=== PATIENT | male | born 1960 | race Caucasian/White ===

== ENCOUNTER 2018-10-29 18:43 | Inpatient (IN) ==
--- NOTE | 2018-10-29 18:57 | Emergency Department Note ---
ED Disposition Clinical Impression: ST elevation myocardial infarction (STEMI) of inferior wall Hypotension Qualifiers: Hypotension type: unspecified hypotension type Qualified Code(s): I95.9 - Hypotension, unspecified Atrial fibrillation Qualifiers: Atrial fibrillation type: unspecified Qualified Code(s): I48.91 - Unspecified atrial fibrillation Disposition: Admitted As Inpatient Condition on Discharge: Serious - Critical Care Critical Care Time: Yes Attestation: On , the high probability of a clinically significant, sudden or life threatening deterioration of the following system(s) required my full and direct attention, intervention and personal management. The time I documented below is in addition to time spent performing reported procedures but includes the f ollowing listed in this critical care notation. Total Critical Care Time: 20 Vital system(s) involved:: Circulatory Failure My critical care processes included: Assessment & monitoring of V/S, Initial and Re-exams, Data Review/Interpretation, Coordinating Care, Medication Orders and management, Documentation Medical Decision Making - Jose Martin Inquiry Pt receiving controlled substance: No Vital Signs: 10/29/18 18:43 10/29/18 19:06 10/29/18 19:17 Temperature 98.0 F 98.1 F Temperature Source Oral Oral Pulse Rate 100 H Pulse Rate [Right Brachial] 60 55 L Respiratory Rate 24 26 H Blood Pressure 84/46 L Blood Pressure [Right Arm] 86/56 L 85/55 L Blood Pressure Mean [Right Arm] 66 65 Blood Pressure Source Automatic Cuff Blood Pressure Source [Right Arm] Automatic Cuff Automatic Cuff Blood Pressure Position Sitting Blood Pressure Position [Right Arm] Sitting Sitting 02 Sat by Pulse Oximetry 100 99 Oxygen Delivery Method Room Air Room Air - Lab Data Lab Results 10/29/18 18:45: WBC 15.8 H, RBC 5.64, Hgb 18.3 H*, Hct 51.5, MCV 91.3, MCH 32.5 H, MCHC 35.6 H, RDW 13.6, Plt Count 484 H, MPV 7.6, Neut % (Auto) 67.7, Lymph % (Auto) 24.9, [place] % (Auto) 4.7, Eos % (Auto) 2.2, Baso % (Auto) 0.5, Neut # (Auto) 10.7 H, Lymph # (Auto) 4.0, [place] # (Auto) 0.7, Eos # (Auto) 0.4, Baso # (Auto) 0.1, Total Counted 100, Neutrophils % (Manual) 79 H, Band Neutrophils % 6.0, Lymphocytes % (Manual) 14, Monocytes % (Manual) 1 L, Platelet Estimate Normal, RBC Morphology Normal 10/29/18 18:45: Sodium 140, Potassium 4.0, Chloride 105, Carbon Dioxide 21, Anion Gap 18.0 H, BUN 23 H, Creatinine 1.50 H, Estimated Creat Clear 69, Estimated GFR 48 L, Est GFR ( Amer) 58 L, Glucose 135 H, Calcium 9.8, Troponin I < 0.02 Result diagrams: 10/29/18 18:45 10/29/18 18:45 Orders (Tests/Meds): ED MEDICATIONS Generic Name Dose Route Start Last Admin Trade Name Freq PRN Reason Stop Dose Admin Diphenhydramine HCl 50 mg 10/29/18 19:22 Benadryl 50mg/1ml Vial IV 10/29/18 19:23 ONCE ONE Fentanyl Citrate 50 mcg 10/29/18 19:22 10/29/18 19:54 Fentanyl 100mcg/2ml Vial IV 10/30/18 19:23 25 mcg Q3MINP PRN Administration Moderate to Severe Pain Fentanyl Citrate 25 mcg 10/29/18 19:22 Fentanyl 250mcg/5ml Vial IV 10/30/18 19:23 Q3MINP PRN Moderate to Severe Pain Fentanyl Citrate 50 mcg 10/29/18 19:22 Fentanyl 250mcg/5ml Vial IV 10/30/18 19:23 Q3MINP PRN Moderate to Severe Pain Fentanyl Citrate 25 mcg 10/29/18 19:22 Fentanyl 100mcg/2ml Vial IV 10/30/18 19:23 Q3MINP PRN Moderate to Severe Pain Flumazenil 0.2 mg 10/29/18 19:22 Romazicon 0.1mg/Ml 5ml Vial IV 10/29/18 23:00 NEEDED PRN Sedation Heparin Sodium (Porcine) 10,000 unit 10/29/18 19:22 10/29/18 19:37 Heparin 1,000 Units/Ml 10ml Vial (Dog Boarder) IV 10/29/18 23:23 3,000 unit NEEDED PRN Administration 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 Heparin Sodium/Sodium Chloride 3,000 unit 10/29/18 19:22 10/29/18 19:27 Heparin 1000 Units/500ml Ns (Dog Boarder) IV 10/29/18 19:23 3,000 unit ONCE ONE Administration Sodium Chloride 1,000 mls @ 25 mls/hr 10/29/18 19:30 10/29/18 19:27 Sod Chlor 0.9% 1000ml Bag IV 10/30/18 19:23 25 mls/hr .Q25H FRANSISCA Administration Lidocaine HCl 20 ml 10/29/18 19:22 10/29/18 19:24 Lidocaine 1% 20ml Mdv IJ 10/29/18 19:23 10 ml ONCE ONE Administration Midazolam HCl 1 mg 10/29/18 19:22 10/29/18 19:54 Midazolam 1mg/Ml 5ml Vial IV 10/30/18 19:23 1 mg Q3MINP PRN Administration Sedation Midazolam HCl 1 mg 10/29/18 19:22 Midazolam 2mg/2ml Vial IV 10/30/18 19:23 Q3MINP PRN Sedation Naloxone HCl 0.4 mg 10/29/18 19:22 Narcan 0.4mg/Ml Vial IV 10/30/18 19:23 Q5MINP PRN Decreased respirations Nitroglycerin 800 mcg 10/29/18 19:22 10/29/18 19:28 Nitroglycerin 800mcg/8ml Syr (Dog Boarder) IV 10/30/18 19:23 800 mcg NEEDED PRN Administration 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 Sodium Chloride 10 ml 10/29/18 19:22 Saline Flush 10ml Syringe IV 11/28/18 19:21 NEEDED PRN Maintain IV Site Verapamil HCl 2.5 mg 10/29/18 19:22 10/29/18 19:27 Verapamil 2.5mg/Ml 2ml Vial IV 10/29/18 19:23 5 mg ONCE ONE Administration Discontinued Medications Generic Name Dose Route Start Last Admin Trade Name Freq PRN Reason Stop Dose Admin Heparin Sodium (Porcine) 9,000 unit 10/29/18 19:06 10/29/18 19:09 Heparin Sodium 5,000 Units/Ml Vial IV 10/29/18 19:07 9,000 unit ONCE ONE Administration ORDERS Category Date Time Status Chest XR -- portable [XR chest portable] Stat Exams 10/29/18 18:50 Taken - ECG Data Tracing #1 EKG interpreted by Romaine Wilkins MD: Rhythm: Atrial fibrillation Rate: 62 [place]: normal Ectopy: none Conduction: normal ST Segment Changes: Inferior ST elevation consistent with acute myocardial infarction T Wave Changes: Anterior and lateral inversion, reciprocal change Q Waves: none No evidence of acute ischemia or injury - Physician Consults Physician Consulted: Roma Time: 18:45 Reason -: Cardiology Eval/Care Comment/Response: Heparin 100 units/kg, call cardiac cath team, he is on his way in - KANDY Score for Stemi Age of Patient: 50-59 years old Heart Rate: 50-69 bpm Systolic Blood Pressure: 80-99 mmHg Serum Creatinine: 1.20-1.59 mg/dl CHF [place] Class: IV-Cardiogenic Shock Other Risk Factors: ST Segment Deviation Stemi Risk Score: 194 General Adult HPI - General Chief complaint: Chest Pain Stated complaint: chest pain Time Seen by Provider: 10/29/18 18:43 Mode of Arrival: Family Vehicle Limitations: No Limitations Description of Symptoms (Recalled from ER Triage Doc. 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 Has a history of CHF and for cardiac stents. Cardiac stents 2013 in 2017 at [facility] in [place]. No prior history of GA. Took 2 nitroglycerin prior to arrival. Has not taken any aspirin today. Has atrial fibrillation, but is on no blood thinners except aspirin. - Related Data Allergies Allergy/AdvReac Type Severity Reaction Status Date / Time NO KNOWN ALLERGIES Allergy Uncoded 06/14/17 14:22 [facility] History - Hepatitis A Screen Drug use history?: No High risk sexual behaviors?: No History of sexually transmitted infection?: No Currently employed?: No Childcare worker?: No Do you have indoor plumbing?: Yes Do you have electricity?: Yes Attestation statement:: This patient has been screened for Hepatitis A risk factors. I have reviewed the patient's past medical history: Yes ROS Obtained: Yes All systems reviewed & no additional complaints - Cardiovascular Cardiovascular: Reports chest pain, Reports diaphoresis, Reports radiating jaw, neck or arm pain - Respiratory Respiratory: Yes dyspnea - Gastrointestinal Gastrointestingal: Reports: nausea. Denies: vomiting Physical Exam - General General appearance: alert, in distress Comment: Diaphoretic and pale - Head Head exam: atraumatic, normocephalic - Eye Eye exam: Present: normal appearance, EOMI - ENT ENT exam: Present: mucous membranes moist - Neck Neck exam: Present: normal inspection, trachea midline - Chest Chest inspection: Present: normal inspection, symmetric chest wall rise - Respiratory Respiratory exam: Present: normal lung sounds bilaterally. Absent: respiratory distress - Cardiovascular Cardiovascular exam: Present: regular rate, normal rhythm, normal heart sounds - Abdominal Exam Abdominal exam: Present: soft. Absent: distention, tenderness - Extremities Exam Extremities exam: Present: normal inspection - Neurological Exam Neurological exam: Present: alert, oriented X3 - Psychiatric Psychiatric exam: Present: normal affect, normal mood - Skin Skin exam: Present: pallor
[2018-10-29 19:00] LABS: Basophils # 0.1 K/mm3 (0-0.2); Basophils % 0.5 % (0.1-2.0); Eosinophils # 0.4 K/mm3 (0.0-0.4); Eosinophils % 2.2 % (0.1-12.0); Hematocrit 51.5 % (42.0-52.0); Lymphocytes % 24.9 % (10-50); Mean Corpuscular HGB Conc 35.6 g/dL (31.8-35.4); Mean Corpuscular Hemoglobin 32.5 pg (27.0-31.2); Mean Corpuscular Volume 91.3 fl (80-94); Mean Platelet Volume 7.6 fl (7.4-10.4); Monocytes # 0.7 K/mm3 (0.1-1.0); Monocytes % 4.7 % (1.7-9.3); Neutrophils # 10.7 K/mm3 (1.8-7.8); Neutrophils % 67.7 % (37.0-80.0); Platelet Count 484 K/mm3 (142-424); Red Blood Count 5.64 M/mm3 (4.60-6.20); Red Cell Distribution Width 13.6 % (11.5-17.5); White Blood Count 15.8 K/mm3 (4.8-10.8)
[2018-10-29 19:02] LABS: Hemoglobin 18.3 g/dL (14.1-18.0)
[2018-10-29 19:07] LABS: Lymphocytes % 14 % (10-50); Monocytes % 1 % (2-9); Neutrophils % 79 % (42-76); RBC Morphology Normal; Total Cells Counted 100
[2018-10-29 19:19] LABS: Blood Urea Nitrogen 23 mg/dL (7-18); Calcium 9.8 mg/dL (8.5-10.1); Carbon Dioxide 21 mmol/L (21.0-32.0); Chloride 105 mmol/L (98-107); Glucose 135 mg/dL (74-106); Sodium 140 mmol/L (136-145)
[2018-10-30 06:17] LABS: Chol/HDL Ratio 3.7 (1-3.5)
--- NOTE | 2018-10-30 07:45 | Pharmacy Consult Notes ---
[facility] Pharmacy VTE Monitoring - Patient Demographics Admission date: 10/29/18 Report Date: 10/30/18 Time: 07:45 Allergies/Adverse Reactions: Patient Allergies No Known Drug Intolerances Allergy (Unknown, Verified 10/29/18 23:49) Unknown allergy reaction Height: 1.68 m Weight: 87.952 kg Patient Problems: Current Active Problems (Updated 10/29/18 @ 19:03 by Romaine Wilkins MD) ST elevation myocardial infarction (STEMI) of inferior wall (Acute) Hypotension (Acute) Atrial fibrillation (Acute) - VTE Risk Labs: VTE Related Lab Results Hgb 18.3 g/dL (14.1-18.0) H* 10/29/18 18:45 Hct 51.5 % (42.0-52.0) 10/29/18 18:45 Plt Count 484 K/mm3 (142-424) H 10/29/18 18:45 BUN 23 mg/dL (7-18) H 10/29/18 18:45 Creatinine 1.50 mg/dL (0.70-1.30) H 10/29/18 18:45 Estimated Creat Clear 69 mL/min (50-200) 10/29/18 18:45 VTE Score: 5 VTE Risk Level: Low Risk Clinical Trial Participant: No - Prophylaxis VTE Prophylaxis Ordered?: Yes Types of VTE Prophylaxis: TEDS Knee High, Pharmacological Location of Applied Device: Not Applicable Pharmacologic Type: Other (xarelto)
--- NOTE | 2018-10-30 08:19 | History & Physical Report ---
*Admission Date: 10/29/18 *Chief complaint: STEMI *History of present illness: 58-year-old white male, patient of Dr. Taran benedict, who presented to the emergency department late yesterday evening with chest pain, shortness of air and nausea. Work-up in the ER revealed that he was in atrial fibrillation which is apparently chronic, but he was also found to have STEMI. Taken urgently to the [facility] and catheterization was performed which revealed significant abnormalities and 4 stents were placed. Please see cardiology report for details below: ANGIOGRAPHIC RESULTS: 1. The left main artery normal 2. The left anterior descending artery is an unusual vessel and has basically a dual system with both arteries being relatively small. Very proximally it branches into the LAD proper and a first diagonal artery which is equal in size to the LAD proper. There appears to be a stent in the diagonal vessel which is patent however has a 60% stenosis immediately proximal to the stent. 3. A moderate sized ramus intermedius is present and has 30% stenoses 4. The circumflex artery is nondominant yet still very large vessel and has proximal 20-30% stenoses mid vessel 20-30% stenosis. The second obtuse marginal artery is a medium sized 2.25 mm vessel and has a long proximal 90% stenosis. The terminal large third obtuse marginal artery has a stent in its mid segment which is widely patent free of in-stent restenosis with excellent distal and proximal transitioning 5. The right coronary artery is a large dominant vessel and initially occluded in its mid segment. Following revascularization the entire ostial proximal mid and distal segment was widely patent. Distal vessel trifurcates into a large posterior descending artery which has a stent in its proximal segment which reduced the 99% stenosis. There is a moderate sized branch which has an inferior takeoff to the ostium of this PDA. This moderate size inferior branch is widely patent with mild stenosis. There is a superior branch moderate in size and then subtotally occluded in its mid segment. 6. The VINCENT ventriculogram reveals preserved at 60% 7. The left ventricular end-diastolic pressure 20 mmHg IMPRESSION: 1. Acute myocardial infarction as described above 2. Successful reconstruction of the proximal mid distal dominant right coronary artery severe disease reduced to 10% with 3 drug-eluting stents in a contiguous manner 3. Successful stenting of a large posterior descending artery with a critical 99% stenosis reduced to 0% with 1 drug-eluting stent 4. Subtotally occluded small to moderate superior branch of the distal trifurcating right coronary artery 5. Unusual small bifurcating left anterior descending artery with the stent and a first diagonal artery which has a proximal 50-60% stenosis which requires evaluation at another setting 6. Widely patent stent in the large third obtuse marginal artery 7. Normal ejection fraction 8. Mildly elevated LVEDP PLAN: 1. Brilinta and aspirin for one year 2. Avoidance of tobacco products 3. LDL less than 55 4. Cardiac rehabilitation 5. Aggressive risk factor modification 6. Carvedilol and carson inhibitors should be started and titrated as tolerated Patient requires anticoagulation because of his chronic atrial fibrillation. Triple anticoagulation therapy including Brilinta and aspirin and Xarelto 15 mg daily. At the end of one month aspirin should be discontinued 7. In 6 weeks a Lexiscan Myoview should be order to determine if the moderately sized bifurcating LAD which technically is the first diagonal artery is producing ischemia because of the 50-60% proximal stenosis 8. Patient presented with out anticoagulation for chronic atrial fibrillation. There is no record of a watchman device or left atrial clip. I see no reason why patient should not be on anticoagulation in order to reduce the risk of stroke [facility] History Medical History: Reports:: Cardiomyopathy, Hyperlipidemia, Hypertension Denies:: Cancer, Diabetes Mellitus Type 1, Diabetes Mellitus Type 2, MRSA *Have you ever received a pneumonia vaccine?: No *Have you received a flu vaccine this season?: No Laterality Cases: Left: Other, Bilateral: Tonsillectomy Other Surgeries: Yes: Cardiac Catheterization, Coronary Stent Amputation: No Fractures: No - *Social History Educational Level: Attended High School Smoking Status: Current every day smoker # Packs/Day (cigarettes): 1 Alcohol Intake: former *Occupational Status:: employed Household Members: spouse, children *Travel in the last 8 weeks: None - Psychiatric History Expresses thoughts of harming self/others: None Suicide Plan Description: No Plan Family Hx:: Cancer, Diabetes, Hypertension, Stroke, Tuberculosis Review of Systems - Review of Systems Review of systems:: pertinent systems reviewed and negative unless documented below This morning patient is without complaints of chest pain or shortness of air. Denies GI complaints, denies musculoskeletal complaints, denies neurologic complaints. Meds Home Medications Medication Instructions Recorded Confirmed Type Aspirin [Aspirin 81mg EC Tab] 81 mg PO DAILY 10/29/18 10/29/18 History Bisoprolol Fumarate [Bisoprolol 10 mg PO DAILY 10/29/18 10/29/18 History 10mg Tablet] Furosemide [Furosemide 80mg Tab] 40 mg PO DAILY 10/29/18 10/29/18 History Ibuprofen [Ibuprofen 200MG Capsule] 200 mg PO DAILY PRN 10/29/18 10/29/18 History Lisinopril [Lisinopril 40mg Tablet] 80 mg PO DAILY 10/29/18 10/29/18 History Multivit-Minerals/Herbal 121 1 each PO NEEDED PRN 10/29/18 10/29/18 History [Urinozinc Prostate Formula Cap] Naproxen Sodium [Aleve 220mg Cap] 220 mg PO BID 10/29/18 10/29/18 History Nitroglycerin 0.4 mg SL TID PRN 10/29/18 10/29/18 History Potassium Chloride [Klor-con 20 20 meq PO DAILY 10/29/18 10/29/18 History mEq tablet] Pravastatin Sodium [Pravachol 40mg 40 mg PO HS 10/29/18 10/29/18 History Tablet] Tizanidine HCl [Zanaflex 4mg 4 mg PO TID PRN 10/29/18 10/29/18 History tablet] buPROPion HCl [Bupropion HCl ER] 150 mg PO BID 10/29/18 10/29/18 History Allergies Allergy/AdvReac Type Severity Reaction Status Date / Time No Known Drug Intolerances Allergy Unknown Unknown Verified 10/29/18 23:49 allergy reaction Exam Vital signs and Labs for Last 24 Hours: Temp Pulse Resp BP Pulse Ox 98.2 F 82 17 125/77 98 10/29/18 21:10 10/30/18 06:00 10/30/18 06:00 10/30/18 06:00 10/30/18 06:00 Laboratory Results - last 24 hr 10/29/18 18:45: WBC 15.8 H, RBC 5.64, Hgb 18.3 H*, Hct 51.5, MCV 91.3, MCH 32.5 H, MCHC 35.6 H, RDW 13.6, Plt Count 484 H, MPV 7.6, Neut % (Auto) 67.7, Lymph % (Auto) 24.9, [place] % (Auto) 4.7, Eos % (Auto) 2.2, Baso % (Auto) 0.5, Neut # (Auto) 10.7 H, Lymph # (Auto) 4.0, [place] # (Auto) 0.7, Eos # (Auto) 0.4, Baso # (Auto) 0.1, Total Counted 100, Neutrophils % (Manual) 79 H, Band Neutrophils % 6.0, Lymphocytes % (Manual) 14, Monocytes % (Manual) 1 L, Platelet Estimate Normal, RBC Morphology Normal 10/29/18 18:45: Sodium 140, Potassium 4.0, Chloride 105, Carbon Dioxide 21, Anion Gap 18.0 H, BUN 23 H, Creatinine 1.50 H, Estimated Creat Clear 69, Estimated GFR 48 L, Est GFR ( Amer) 58 L, Glucose 135 H, Calcium 9.8, Troponin I < 0.02 10/29/18 19:30: Activated Clotting Time 252 H* 10/29/18 20:29: Activated Clotting Time 312 H* D 10/30/18 05:58: Triglycerides 83, Cholesterol 142, LDL Cholesterol 87, VLDL Cholesterol 17, HDL Cholesterol 38, Cholesterol/HDL Ratio 3.7 H I & O for Last 24 hours: Intake & Output 10/27/18 10/28/18 10/29/18 10/30/18 11:59 11:59 11:59 11:59 Intake Total 1407 / 1407 Output Total 1390 / 1390 Balance Weight 193 lb 14.4 oz Narrative: Patient is awake, alert. Pleasant. Oropharynx shows nicotine damage to dental structures but otherwise clear. No JVD. Smoker's rhonchi in both lungs but good air movement. Heart rate regular without murmurs. Abdomen soft and nontender. No edema or clubbing or cyanosis. No skin rash. Assessment and Plan (1) Atrial fibrillation Current visit: Yes Status: Acute Qualifiers: Atrial fibrillation type: unspecified Qualified Code(s): I48.91 - Unspecified atrial fibrillation Category: Medical Code(s): I48.91 - Unspecified atrial fibrillation Agree with cardiology recommendations for ongoing anticoagulation post discharge. Observed today, probable discharge tomorrow. (2) ST elevation myocardial infarction (STEMI) of inferior wall Current visit: Yes Status: Acute Category: Medical Code(s): I21.19 - ST elevation (STEMI) myocardial infarction involving other coronary artery of inferior wall Status post stenting, patient doing well. Discussed smoking cessation with patient. (3) Body mass index (BMI) greater than 30 Current visit: Yes Status: Acute Category: Medical Complicates all aspects of his care (4) Hyperlipemia, idiopathic familial Current visit: Yes Status: Acute Category: Medical Code(s): E78.5 - Hyperlipidemia, unspecified (5) Personal history of nicotine dependence Current visit: Yes Status: Acute Category: Medical Code(s): Z87.891 - Personal history of nicotine dependence Discussed smoking cessation, complicates all aspects of his recovery.
--- NOTE | 2018-10-30 11:26 | Consult Report ---
History of Present Illness Consult date: 10/30/18 Requesting physician: Nicholas Barrett Consult reason: chest pain Chief complaint: chest pain Additional Medical History:: 1. CAD with prior Diagonal and Cx stenting in [address] Jesse Thao STEMI, 10/2018. B. LHC, 10/2018, ANGIOGRAPHIC RESULTS: 1. The left main artery normal 2. The left anterior descending artery is an unusual vessel and has basically a dual system with both arteries being relatively small. Very proximally it branches into the LAD proper and a first diagonal artery which is equal in size to the LAD proper. There appears to be a stent in the diagonal vessel which is patent however has a 60% stenosis immediately proximal to the stent. 3. A moderate sized ramus intermedius is present and has 30% stenoses 4. The circumflex artery is nondominant yet still very large vessel and has proximal 20-30% stenoses mid vessel 20-30% stenosis. The second obtuse marginal artery is a medium sized 2.25 mm vessel and has a long proximal 90% stenosis. The terminal large third obtuse marginal artery has a stent in its mid segment which is widely patent free of in-stent restenosis with excellent distal and proximal transitioning 5. The right coronary artery is a large dominant vessel and initially occluded in its mid segment. Following revascularization the entire ostial proximal mid and distal segment was widely patent. Distal vessel trifurcates into a large posterior descending artery which has a stent in its proximal segment which reduced the 99% stenosis. There is a moderate sized branch which has an inferior takeoff to the ostium of this PDA. This moderate size inferior branch is widely patent with mild stenosis. There is a superior branch moderate in size and then subtotally occluded in its mid segment. 6. The VINCENT ventriculogram reveals preserved at 60% 7. The left ventricular end-diastolic pressure 20 mmHg IMPRESSION: 1. Acute myocardial infarction as described above 2. Successful reconstruction of the proximal mid distal dominant right coronary artery severe disease reduced to 10% with 3 drug-eluting stents in a contiguous manner 3. Successful stenting of a large posterior descending artery with a critical 99% stenosis reduced to 0% with 1 drug-eluting stent 4. Subtotally occluded small to moderate superior branch of the distal trifurcating right coronary artery 5. Unusual small bifurcating left anterior descending artery with the stent and a first diagonal artery which has a proximal 50-60% stenosis which requires evaluation at another setting 6. Widely patent stent in the large third obtuse marginal artery 7. Normal ejection fraction 8. Mildly elevated LVEDP PLAN: 1. Brilinta and aspirin for one year 2. Avoidance of tobacco products 3. LDL less than 55 4. Cardiac rehabilitation 5. Aggressive risk factor modification 6. Carvedilol and carson inhibitors should be started and titrated as tolerated Patient requires anticoagulation because of his chronic atrial fibrillation. Triple anticoagulation therapy including Brilinta and aspirin and Xarelto 15 mg daily. At the end of one month aspirin should be discontinued 7. In 6 weeks a Lexiscan Myoview should be order to determine if the moderately sized bifurcating LAD which technically is the first diagonal artery is producing ischemia because of the 50-60% proximal stenosis 8. Patient presented with out anticoagulation for chronic atrial fibrillation. There is no record of a watchman device or left atrial clip. I see no reason why patient should not be on anticoagulation in order to reduce the risk of stroke from chronic atrial fibrillation 2. Chronic atrial fibrillation with previous Xarelto use but discontinued due to cost. 3. HTN 4. Hyperlipidemia History of present illness: 58 yo WM presented to ER for chest pain, SOA and nausea. 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 Today patient is without complaints. Telemetry is atrial fib with CVR [facility] History Medical History: Reports:: Cardiomyopathy, Hyperlipidemia, Hypertension Denies:: Cancer, Diabetes Mellitus Type 1, Diabetes Mellitus Type 2, MRSA *Have you ever received a pneumonia vaccine?: No *Have you received a flu vaccine this season?: No Laterality Cases: Left: Other, Bilateral: Tonsillectomy Other Surgeries: Yes: Cardiac Catheterization, Coronary Stent Amputation: No Fractures: No - *Social History Educational Level: Attended High School Smoking Status: Current every day smoker # Packs/Day (cigarettes): 1 Alcohol Intake: former *Occupational Status:: employed Household Members: spouse, children *Travel in the last 8 weeks: None - Psychiatric History Expresses thoughts of harming self/others: None Suicide Plan Description: No Plan Family Hx:: Cancer, Diabetes, Hypertension, Stroke, Tuberculosis Meds Home Medications Medication Instructions Recorded Confirmed Type Aspirin [Aspirin 81mg EC Tab] 81 mg PO DAILY 10/29/18 10/29/18 History Bisoprolol Fumarate [Bisoprolol 10 mg PO DAILY 10/29/18 10/29/18 History 10mg Tablet] Furosemide [Furosemide 80mg Tab] 40 mg PO DAILY 10/29/18 10/29/18 History Ibuprofen [Ibuprofen 200MG Capsule] 200 mg PO DAILY PRN 10/29/18 10/29/18 History Lisinopril [Lisinopril 40mg Tablet] 80 mg PO DAILY 10/29/18 10/29/18 History Multivit-Minerals/Herbal 121 1 each PO NEEDED PRN 10/29/18 10/29/18 History [Urinozinc Prostate Formula Cap] Naproxen Sodium [Aleve 220mg Cap] 220 mg PO BID 10/29/18 10/29/18 History Nitroglycerin 0.4 mg SL TID PRN 10/29/18 10/29/18 History Potassium Chloride [Klor-con 20 20 meq PO DAILY 10/29/18 10/29/18 History mEq tablet] Pravastatin Sodium [Pravachol 40mg 40 mg PO HS 10/29/18 10/29/18 History Tablet] buPROPion HCl [Bupropion HCl ER] 150 mg PO BID 10/29/18 10/29/18 History Tizanidine HCl [Zanaflex 4mg 2 - 4 mg PO TID PRN 10/30/18 10/30/18 History tablet] Allergies Allergy/AdvReac Type Severity Reaction Status Date / Time No Known Drug Intolerances Allergy Unknown Unknown Verified 10/29/18 23:49 allergy reaction Review of Systems - *Cardiovascular Reports chest pain, Reports shortness of breath with activity - *Respiratory Reports shortness of breath with activity, Denies cough - *Gastrointestinal Reports nausea, Denies abdominal pain, Denies vomiting - *Genitourinary Denies blood in urine - *Musculoskeletal Denies joint pain, Denies back pain - *Neurologic Denies lack of coordination, Denies fainting Exam Vital signs and Labs for Last 24 Hours: Temp Pulse Resp BP Pulse Ox 98.0 F 94 H 20 114/64 98 10/30/18 09:15 10/30/18 09:15 10/30/18 09:15 10/30/18 09:15 10/30/18 09:15 Laboratory Results - last 24 hr 10/29/18 18:45: WBC 15.8 H, RBC 5.64, Hgb 18.3 H*, Hct 51.5, MCV 91.3, MCH 32.5 H, MCHC 35.6 H, RDW 13.6, Plt Count 484 H, MPV 7.6, Neut % (Auto) 67.7, Lymph % (Auto) 24.9, [place] % (Auto) 4.7, Eos % (Auto) 2.2, Baso % (Auto) 0.5, Neut # (Auto) 10.7 H, Lymph # (Auto) 4.0, [place] # (Auto) 0.7, Eos # (Auto) 0.4, Baso # (Auto) 0.1, Total Counted 100, Neutrophils % (Manual) 79 H, Band Neutrophils % 6.0, Lymphocytes % (Manual) 14, Monocytes % (Manual) 1 L, Platelet Estimate Normal, RBC Morphology Normal 10/29/18 18:45: Sodium 140, Potassium 4.0, Chloride 105, Carbon Dioxide 21, Anion Gap 18.0 H, BUN 23 H, Creatinine 1.50 H, Estimated Creat Clear 69, Estimated GFR 48 L, Est GFR ( Amer) 58 L, Glucose 135 H, Calcium 9.8, Troponin I < 0.02 10/29/18 19:30: Activated Clotting Time 252 H* 10/29/18 20:29: Activated Clotting Time 312 H* D 10/30/18 05:58: Triglycerides 83, Cholesterol 142, LDL Cholesterol 87, VLDL Cholesterol 17, HDL Cholesterol 38, Cholesterol/HDL Ratio 3.7 H I & O for Last 24 hours: Intake & Output 10/27/18 10/28/18 10/29/18 10/30/18 11:59 11:59 11:59 11:59 Intake Total 1407 / 1407 Output Total 1390 / 1390 Balance Weight 193 lb 14.4 oz - *Routine HEENT Exam Head: Present: normocephalic Eye: Present: EOMI, PERRL ENT: Present: mucous membranes moist - *Routine Neck Exam Present: supple. Absent: JVD, carotid bruit - *Routine Respiratory Exam Present: CTA bilaterally. Absent: accessory muscle use, rales, rhonchi, wheezes - *Routine Cardiovascular Exam Present: RRR. Absent: murmur, gallop, rubs - *Routine Abdominal Exam Present: soft. Absent: tenderness, distended, guarding - *Routine Extremities Exam Absent: edema, calf tenderness Assessment and Plan (1) Atrial fibrillation Current visit: Yes Status: Acute Qualifiers: Atrial fibrillation type: unspecified Qualified Code(s): I48.91 - Unspecified atrial fibrillation Category: Medical Code(s): I48.91 - Unspecified atrial fibrillation (2) ST elevation myocardial infarction (STEMI) of inferior wall Current visit: Yes Status: Acute Category: Medical Code(s): I21.19 - ST elevation (STEMI) myocardial infarction involving other coronary artery of inferior wall (3) Body mass index (BMI) greater than 30 Current visit: Yes Status: Acute Category: Medical (4) Hyperlipemia, idiopathic familial Current visit: Yes Status: Acute Category: Medical Code(s): E78.5 - Hyperlipidemia, unspecified (5) Personal history of nicotine dependence Current visit: Yes Status: Acute Category: Medical Code(s): Z87.891 - Personal history of nicotine dependence - Assessment and plan all Dx Assessment and Plan for all problems:: 1. Continue DAPT (ASA and Brilinta) for COY to RCA and PDA. 2. Continue Xarelto for A. fib 3. Will start bisoprolol 5 mg daily and lisinopril 5 mg daily in setting of STEMI. 4. Continue to monitor overnight with plans for discharge home in AM if he remains stable.
[2018-10-31 05:22] LABS: Basophils # 0.1 K/mm3 (0-0.2); Basophils % 0.5 % (0.1-2.0); Eosinophils # 0.2 K/mm3 (0.0-0.4); Eosinophils % 1.9 % (0.1-12.0); Hematocrit 44.4 % (42.0-52.0); Hemoglobin 15.3 g/dL (14.1-18.0); Lymphocytes % 15.7 % (10-50); Mean Corpuscular HGB Conc 34.4 g/dL (31.8-35.4); Mean Corpuscular Volume 93.3 fl (80-94); Mean Platelet Volume 7.2 fl (7.4-10.4); Monocytes # 0.8 K/mm3 (0.1-1.0); Monocytes % 6.2 % (1.7-9.3); Neutrophils # 9.4 K/mm3 (1.8-7.8); Neutrophils % 75.7 % (37.0-80.0); Platelet Count 281 K/mm3 (142-424); Red Blood Count 4.76 M/mm3 (4.60-6.20); Red Cell Distribution Width 13.8 % (11.5-17.5); White Blood Count 12.4 K/mm3 (4.8-10.8)
[2018-10-31 05:30] LABS: Anion Gap 12.1 mEq/L (5-15); Potassium 4.1 mmoL/L (3.5-5.1)
[2018-10-31 05:39] LABS: Calcium 8.2 mg/dL (8.5-10.1)
--- NOTE | 2018-10-31 07:53 | Discharge Summary ---
General - General Admission date:: 10/29/18 Discharge date: 10/31/18 HPI HPI: 58-year-old white male, patient of Dr. Taran benedict, who presented to the emergency department late yesterday evening with chest pain, shortness of air and nausea. Work-up in the ER revealed that he was in atrial fibrillation which is apparently chronic, but he was also found to have STEMI. Taken urgently to the Building Cleaning Super[facility] and catheterization was performed which revealed significant abnormalities and 4 stents were placed. Please see cardiology report for details below: ANGIOGRAPHIC RESULTS: 1. The left main artery normal 2. The left anterior descending artery is an unusual vessel and has basically a dual system with both arteries being relatively small. Very proximally it branches into the LAD proper and a first diagonal artery which is equal in size to the LAD proper. There appears to be a stent in the diagonal vessel which is patent however has a 60% stenosis immediately proximal to the stent. 3. A moderate sized ramus intermedius is present and has 30% stenoses 4. The circumflex artery is nondominant yet still very large vessel and has proximal 20-30% stenoses mid vessel 20-30% stenosis. The second obtuse marginal artery is a medium sized 2.25 mm vessel and has a long proximal 90% stenosis. The terminal large third obtuse marginal artery has a stent in its mid segment which is widely patent free of in-stent restenosis with excellent distal and proximal transitioning 5. The right coronary artery is a large dominant vessel and initially occluded in its mid segment. Following revascularization the entire ostial proximal mid and distal segment was widely patent. Distal vessel trifurcates into a large posterior descending artery which has a stent in its proximal segment which reduced the 99% stenosis. There is a moderate sized branch which has an inferior takeoff to the ostium of this PDA. This moderate size inferior branch is widely patent with mild stenosis. There is a superior branch moderate in size and then subtotally occluded in its mid segment. 6. The VINCENT ventriculogram reveals preserved at 60% 7. The left ventricular end-diastolic pressure 20 mmHg IMPRESSION: 1. Acute myocardial infarction as described above 2. Successful reconstruction of the proximal mid distal dominant right coronary artery severe disease reduced to 10% with 3 drug-eluting stents in a contiguous manner 3. Successful stenting of a large posterior descending artery with a critical 99% stenosis reduced to 0% with 1 drug-eluting stent 4. Subtotally occluded small to moderate superior branch of the distal trifurcating right coronary artery 5. Unusual small bifurcating left anterior descending artery with the stent and a first diagonal artery which has a proximal 50-60% stenosis which requires evaluation at another setting 6. Widely patent stent in the large third obtuse marginal artery 7. Normal ejection fraction 8. Mildly elevated LVEDP PLAN: 1. Brilinta and aspirin for one year 2. Avoidance of tobacco products 3. LDL less than 55 4. Cardiac rehabilitation 5. Aggressive risk factor modification 6. Carvedilol and gabriela inhibitors should be started and titrated as tolerated Patient requires anticoagulation because of his chronic atrial fibrillation. Triple anticoagulation therapy including Brilinta and aspirin and Xarelto 15 mg daily. At the end of one month aspirin should be discontinued 7. In 6 weeks a Lexiscan Myoview should be order to determine if the moderately sized bifurcating LAD which technically is the first diagonal artery is producing ischemia because of the 50-60% proximal stenosis 8. Patient presented with out anticoagulation for chronic atrial fibrillation. There is no record of a watchman device or left atrial clip. I see no reason why patient should not be on anticoagulation in order to reduce the risk of stroke Hospital Course Hospital Course: Patient was emergently taken to Building Cle[facility] Super[facility] where he was found to have flow-limiti ng lesions. They were intervened on with good return of blood flow. Initiated on triple therapy given his A. fib, new stents. Also initiated on Protonix to decrease risk for GI bleed. Patient to be discharged on goal-directed therapy including GABRIELA inhibitor, beta-vishnu, statin, aspirin. Further chest pain during admission. Issues appear to have resolved. Patient denies fever, nausea vomiting, shortness of breath, fatigue. Stable for discharge home Objective Vital signs: Temp Pulse Resp BP Pulse Ox 98.3 F 76 18 135/80 97 10/31/18 04:42 10/31/18 04:42 10/31/18 04:42 10/31/18 04:42 10/31/18 04:42 Narrative: Patient is awake, alert. Pleasant. No JVD. Smoker's rhonchi in both lungs but good air movement. Heart rate regular without murmurs. Abdomen soft and nontender. No edema or clubbing or cyanosis. No skin rash. Results Labs on day of discharge: Labs from last 24 hours 10/31/18 10/31/18 05:00 05:00 WBC 12.4 H RBC 4.76 Hgb 15.3 Hct 44.4 MCV 93.3 MCH 32.0 H MCHC 34.4 RDW 13.8 Plt Count 281 D MPV 7.2 L Neut % (Auto) 75.7 Lymph % (Auto) 15.7 [place] % (Auto) 6.2 Eos % (Auto) 1.9 Baso % (Auto) 0.5 Neut # (Auto) 9.4 H Lymph # (Auto) 2.0 [place] # (Auto) 0.8 Eos # (Auto) 0.2 Baso # (Auto) 0.1 Sodium 138 Potassium 4.1 Chloride 107 Carbon Dioxide 23 Anion Gap 12.1 BUN 17 D Creatinine 1.15 D Estimated Creat Clear 88 Estimated GFR 65 Est GFR ( Amer) 79 D Glucose 109 H Calcium 8.2 L D DS: Diagnosis - Discharge Diagnosis (1) Atrial fibrillation Status: Chronic (2) ST elevation myocardial infarction (STEMI) of inferior wall Status: Acute (3) Body mass index (BMI) greater than 30 Status: Chronic (4) Hyperlipemia, idiopathic familial Status: Chronic (5) Personal history of nicotine dependence Status: Chronic Discharge Plan - Patient Discharge Instructions ACTIVITY: No heavy lifting DIET: low fat, low cholesterol Patient Instructions: DI for Heart Attack, Heart Attack, Atrial Fibrillation, Cardiac Catheterization, Tachycardia, Heart-Healthy Diet, DI for Atrial Fibrillation - Follow up Plan Follow up with: Raimundo Chirinos [Primary Care Provider] - Valerio Brandon MD [Staff Physician] - (1-2 weeks) Disposition: Home, Self-Skilled Nursing Medications: Home Medications Medication Instructions Recorded Confirmed Type Aspirin [Aspirin 81mg EC Tab] 81 mg PO DAILY 10/29/18 10/29/18 History Bisoprolol Fumarate [Bisoprolol 10 mg PO DAILY 10/29/18 10/29/18 History 10mg Tablet] Furosemide [Furosemide 80mg Tab] 40 mg PO DAILY 10/29/18 10/29/18 History Ibuprofen [Ibuprofen 200MG Capsule] 200 mg PO DAILY PRN 10/29/18 10/29/18 History Lisinopril [Lisinopril 40mg Tablet] 80 mg PO DAILY 10/29/18 10/29/18 History Multivit-Minerals/Herbal 121 1 each PO NEEDED PRN 10/29/18 10/29/18 History [Urinozinc Prostate Formula Cap] Naproxen Sodium [Aleve 220mg Cap] 220 mg PO BID 10/29/18 10/29/18 History Nitroglycerin 0.4 mg SL TID PRN 10/29/18 10/29/18 History Potassium Chloride [Klor-con 20 20 meq PO DAILY 10/29/18 10/29/18 History mEq tablet] Pravastatin Sodium [Pravachol 40mg 40 mg PO HS 10/29/18 10/29/18 History Tablet] buPROPion HCl [Bupropion HCl ER] 150 mg PO BID 10/29/18 10/29/18 History Tizanidine HCl [Zanaflex 4mg 2 - 4 mg PO TID PRN 10/30/18 10/30/18 History tablet] Atorvastatin Calcium [Atorvastatin 40 mg PO HS 30 Days #30 tab 10/31/18 Rx 40mg Tab] Lisinopril [Lisinopril 20mg Tab] 20 mg PO DAILY 30 Days #30 tab 10/31/18 Rx Pantoprazole Sodium [Protonix 40mg 40 mg PO DAILY 30 Days #30 tab 10/31/18 Rx tablet] Rivaroxaban [Xarelto 15mg tablet] 15 mg PO QPMWM 30 Days #30 tab 10/31/18 Rx Rivaroxaban [Xarelto 20mg Tablet] 20 mg PO DAILY 30 Days #30 tab 10/31/18 Rx Ticagrelor [Brilinta 90mg Tablet] 90 mg PO BID 30 Days #60 tab 10/31/18 Rx Prescriptions/Medication Reconciliation: New Ticagrelor [Brilinta 90mg Tablet] 90 mg PO BID 30 Days #60 tab Rivaroxaban [Xarelto 15mg tablet] 15 mg PO QPMWM 30 Days #30 tab Pantoprazole Sodium [Protonix 40mg tablet] 40 mg PO DAILY 30 Days #30 tab Atorvastatin Calcium [Atorvastatin 40mg Tab] 40 mg PO HS 30 Days #30 tab Rivaroxaban [Xarelto 20mg Tablet] 20 mg PO DAILY 30 Days #30 tab Lisinopril [Lisinopril 20mg Tab] 20 mg PO DAILY 30 Days #30 tab Continued Multivit-Minerals/Herbal 121 [Urinozinc Prostate Formula Cap] 1 each PO NEEDED PRN PRN Reason: SUPPLEMENT Ibuprofen [Ibuprofen 200MG Capsule] 200 mg PO DAILY PRN PRN Reason: Inflammation Aspirin [Aspirin 81mg EC Tab] 81 mg PO DAILY buPROPion HCl [Bupropion HCl ER] 150 mg PO BID Potassium Chloride [Klor-con 20 mEq tablet] 20 meq PO DAILY Furosemide [Furosemide 80mg Tab] 40 mg PO DAILY Nitroglycerin 0.4 mg SL TID PRN PRN Reason: Chest Pain Bisoprolol Fumarate [Bisoprolol 10mg Tablet] 10 mg PO DAILY Naproxen Sodium [Aleve 220mg Cap] 220 mg PO BID Tizanidine HCl [Zanaflex 4mg tablet] 2 - 4 mg PO TID PRN PRN Reason: Muscle RELAXATION Discontinued Lisinopril [Lisinopril 40mg Tablet] 80 mg PO DAILY Pravastatin Sodium [Pravachol 40mg Tablet] 40 mg PO HS
--- NOTE | 2018-10-31 08:53 | Progress Note ---
Subjective Date: 10/31/18 Time: 08:50 Principal diagnosis: STEMI Interval history: 58 yo WM in bed in NAD. No complaints. Telemetry is a. fib with CVR and no significant arrhythmias. He is wanting to go home. Exam Vital signs and Labs for Last 24 Hours: Temp Pulse Resp BP Pulse Ox 98.3 F 76 18 135/80 97 10/31/18 04:42 10/31/18 04:42 10/31/18 04:42 10/31/18 04:42 10/31/18 04:42 Laboratory Results - last 24 hr 10/31/18 05:00: WBC 12.4 H, RBC 4.76, Hgb 15.3, Hct 44.4, MCV 93.3, MCH 32.0 H, MCHC 34.4, RDW 13.8, Plt Count 281 D, MPV 7.2 L, Neut % (Auto) 75.7, Lymph % (Auto) 15.7, [place] % (Auto) 6.2, Eos % (Auto) 1.9, Baso % (Auto) 0.5, Neut # (Auto) 9.4 H, Lymph # (Auto) 2.0, [place] # (Auto) 0.8, Eos # (Auto) 0.2, Baso # (Auto) 0.1 10/31/18 05:00: Sodium 138, Potassium 4.1, Chloride 107, Carbon Dioxide 23, Anion Gap 12.1, BUN 17 D, Creatinine 1.15 D, Estimated Creat Clear 88, Estimated GFR 65, Est GFR ( Amer) 79 D, Glucose 109 H, Calcium 8.2 L D I & O for Last 24 hours: Intake & Output 10/28/18 10/29/18 10/30/18 10/31/18 11:59 11:59 11:59 11:59 Intake Total 1407 / 1407 1077 / 1077 Output Total 1390 / 1390 250 / 250 Balance 827 / 827 Weight 193 lb 14.4 oz 196 lb 3.382 oz - *Routine HEENT Exam Head: Present: normocephalic Eye: Present: EOMI, PERRL ENT: Present: mucous membranes moist - *Routine Respiratory Exam Present: CTA bilaterally. Absent: accessory muscle use, rales, rhonchi, wheezes - *Routine Cardiovascular Exam Present: irregularly irregular. Absent: murmur, gallop, rubs - *Routine Extremities Exam Absent: edema, calf tenderness - *Routine Neurological Exam Present: alert, oriented X3, moving all extremities Progress Note: A&P (1) Atrial fibrillation Status: Acute Current Visit: Yes (2) ST elevation myocardial infarction (STEMI) of inferior wall Status: Acute Current Visit: Yes (3) Body mass index (BMI) greater than 30 Status: Acute Current Visit: Yes (4) Hyperlipemia, idiopathic familial Status: Acute Current Visit: Yes (5) Personal history of nicotine dependence Status: Acute Current Visit: Yes Assessment and Plan for All Diagnoses:: 1. CAD, s/p STEMI and coronary stenting of RCA and PDA. On ASA and brilinta. Remaining LAD/Diagonal disease to be evaluated with lexiscan myoview in 4-6 wks. 2. A. fib with CVR. On Xarelto 20 mg daily. 3. Continue bisoprolol 5 mg daily and lisinopril 5 mg daily for STEMI. 4. Add atorvastatin 40 mg daily for HLD. 5. OK for discharge home from cardiology standpoint. Follow up in our office next week. Off work til follow up.
== END 2018-10-31 11:00 | disposition home or self-care (01) | DRG 247 ==
LOC: ER 18:43 → CATHLAB 19:10 → ICU 19:38
PROVIDERS: ADMIT Family Medicine; ATTEND Internal Medicine Adolescent Medicine
CPT/HCPCS: 36415; 71010; 71045; 80048; 80061; 84484; 85007; 85025; 85347; 92928; 92941; 93005; 93458; 96365; 96375; 99152; 99153; 99284; C1725; C1769; C1876; C9600; C9606; J1644; Q9967

== ENCOUNTER → 2018-11-06 09:07 | Outpatient (CLI) | payer BC, SELFPAY ==
[2018-11-06 09:17] LABS: Hematocrit 50.1 % (42.0-52.0); Hemoglobin 17.1 g/dL (14.1-18.0)
[2018-11-06 10:08] LABS: Blood Urea Nitrogen 25 mg/dL (7-18); Creatinine,Serum 1.37 mg/dL (0.70-1.30); Estimated Glomerular Filt Rate 53 ml/min (>60); GFR (African American) 65 ML/MIN (>60)
== END ==
PROVIDERS: Visit Provider Internal Medicine
DX: Z95.5 Presence of coronary angioplasty implant and graft (principal)
CPT/HCPCS: 36415; 82565; 84520; 85014; 85018

== ENCOUNTER → 2018-11-08 13:15 | Outpatient (CLI) | payer BC, SELFPAY ==
--- NOTE | 2018-11-08 13:18 | CA_ITS ---
PROCEDURE: 2-D M-mode and color Doppler study INDICATIONS FOR THE TEST: Chest pain COPD Heart Murmur Tobacco SmokingX Palpitations FatigueX Syncope Edema HypertensionXDiabetes Mellitus Rheumatic Fever SOBXDOE Obesity Hyperlipidemia Family History HD Additional History CAD,CM,AF,CAD, PATIENT INFORMATION HEIGHT: 66 WEIGHT:201 GENDER: Male B/P:136/83 2-D/M-MODE INTERPRETATION: 2-D MEASUREMENTS OBSERVED VALUES IN CMS Right Ventricular Dimension (RVDd) 1.9 Interventricular Septum (Thickness)(IVsd) 1.2 Left Ventricular Internal Dimensions(LVIDd) 5.2 Left Ventricular Posterior Wall (Thickness)(LVPWd) 1.1 Aortic Root 3.1 Aortic Cusp Separation 2.1 Left Atrial Dimensions (LAD) 3.9 2D 1. Left atrium is mildly enlarged, left ventricle is normal size, mild concentric left ventricular hypertrophy, visually estimated ejection fraction 50% with no regional wall motion abnormality. 2. The right atrium and right ventricle is normal size and contractility. 3. The aortic valve is minimally thickened and fibrosed. 4. The mitral and tricuspid valve leaflets are minimally thickened. 5. The pulmonic valve is poorly visualized. 6. No significant pericardial effusion noted. DOPPLER INTERROGATION: Doppler interrogation of the aortic, mitral and tricuspid valvular presence of moderate mitral and mild tricuspid regurgitation, tricuspid regurgitation jet velocity is inadequate for calculation of the right ventricular systolic pressure, diastolic parameters are inconclusive. Inferior vena cava is normal size with normal inspiratory collapse. CONCLUSION: 1. Mildly enlarged left atrium, normal left ventricular size, mild concentric left ventricular hypertrophy, visually estimated ejection fraction 50% with no regional wall motion abnormality. Diastolic parameters are inconclusive. 2. Moderate mitral and mild tricuspid regurgitation. 3. No significant pericardial effusion noted.
== END ==
PROVIDERS: PCP Internal Medicine; Visit Provider Urology
DX: I25.10 Atherosclerotic heart disease of native coronary artery without angina pectoris (principal); I48.91 Unspecified atrial fibrillation; R06.02 Shortness of breath
CPT/HCPCS: 93306

== ENCOUNTER → 2018-12-06 06:19 | Outpatient (CLI) | payer BC, SELFPAY ==
--- NOTE | 2018-12-06 06:28 | NM_ITS ---
CARDIOLITE SPECT MYOCARDIAL PERFUSION LEXISCAN, REST AND STRESS: [facility] REVIEW QGS EF AND WALL MOTION EVALUATION: QPS - PERFUSION EVALUATION HISTORY: CAD DOSE: 10.34 mCi technetium 99m mibi intravenously at rest followed by 30.6 mCi technetium 99m mibi following the intravenous ministration of 0.4 mg of Lexiscan. Resting blood pressure is 152/100. Stress blood pressure 135/88. FINDINGS: Ejection fraction is calculated to be 48%. Stress images reveal decreased activity throughout the inferior wall and apex while rest images reveal significantly improved activity. Gated images calculated ejection fraction of 48% with inferior wall hypokinesis IMPRESSION: Previous nontransmural myocardial infarction involving the inferior apical wall accompanied by regional wall motion abnormality and a large degree of reversible ischemia. Reduced ejection fraction with regional wall motion abnormality as described. High risk abnormal stress test
--- NOTE | 2018-12-06 09:06 | HMH.ITSHM ---
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 [] tiragrelor bupropion tizanidine protonix nitro lisinopril furosemide atorvastatin prednisone
== END ==
PROVIDERS: PCP Internal Medicine; Visit Provider Nurse Practitioner Family
DX: I25.10 Atherosclerotic heart disease of native coronary artery without angina pectoris (principal); R06.02 Shortness of breath; E78.5 Hyperlipidemia, unspecified; I11.9 Hypertensive heart disease without heart failure
CPT/HCPCS: 78452; 93017; A9502; J2785

== ENCOUNTER 2019-02-07 10:10 | Outpatient (CLI) | payer BC, SELFPAY ==
[2019-02-07] VITALS (10 sets, daily range): BP systolic 74–87; BP diastolic 35–49; PULSE 41–55; RESP 16–18; TEMP 35.8; O2SAT 98
[2019-02-07 10:14] LABS: Microscopic, Urine URINE MICROSCOPIC (MICROSCOPIC)
--- NOTE | 2019-02-07 10:22 | US_ITS ---
PROCEDURE: US KIDNEY CLINICAL INDICATION: RENAL FAILURE , NEAR SYCOPE COMPARISON: No exams were available for comparison FINDINGS: Kidneys are normal size shape and position. No hydronephrosis, renal mass, or perinephric fluid collection is evident. IMPRESSION: Unremarkable bilateral renal ultrasound Dictated by: Parish Monte MD 02/07/2019 11:20 Signed by: <Electronically signed by Parish Monte MD in [facility]> 02/07/2019 11:20
[2019-02-07 10:29] LABS: Appearance,Urine CLEAR (Clear); Bilirubin,Urine Negative (Negative); Blood, Urine Negative (Negative); Color,Urine YELLOW (Yellow); Glucose,Urine (UA) Negative (Negative); Ketones,Urine Negative (Negative); Leukocyte Esterase,Urine Negative (Negative); Nitrate,Urine Negative (Negative); PH,Urine 5.5 (5.0-8.5); Protein,Urine Negative (Negative); Specific Gravity, Urine >= 1.030 (1.005-1.030); Urobilinogen,Urine 0.2 EU/dl (0.2)
[2019-02-07 10:43] LABS: Bacteria,Urine Trace /lpf; Hyaline Casts,Urine Occasional #/lpf (0)
[2019-02-07 10:44] LABS: Anion Gap 9.7 mEq/L (5-15); Blood Urea Nitrogen 55 mg/dL (7-18); Calcium 9.1 mg/dL (8.5-10.1); Carbon Dioxide 26 mmol/L (21.0-32.0); Chloride 102 mmol/L (98-107); Estimated Glomerular Filt Rate 16 ml/min (>60); GFR (African American) 19 ML/MIN (>60); Glucose 123 mg/dL (74-106); Potassium 3.7 mmoL/L (3.5-5.1); Sodium 134 mmol/L (136-145)
[2019-02-07 10:47] LABS: Creatinine,Serum 3.88 mg/dL (0.70-1.30)
== END 2019-02-07 16:30 | disposition home or self-care (01) ==
LOC: LAB 10:11 → INF 11:37
PROVIDERS: PCP Internal Medicine; Visit Provider Internal Medicine
DX: N17.9 Acute kidney failure, unspecified (principal); R55 Syncope and collapse; E86.0 Dehydration
CPT/HCPCS: 36415; 76770; 80048; 81001; 96360; 96361

== ENCOUNTER → 2019-02-09 08:39 | Outpatient (CLI) | payer BC, SELFPAY ==
[2019-02-09 10:03] LABS: Anion Gap 15.5 mEq/L (5-15); Blood Urea Nitrogen 30 mg/dL (7-18); Calcium 8.8 mg/dL (8.5-10.1); Carbon Dioxide 23 mmol/L (21.0-32.0); Chloride 108 mmol/L (98-107); Creatinine,Serum 2.18 mg/dL (0.70-1.30); Estimated Glomerular Filt Rate 31 ml/min (>60); GFR (African American) 38 ML/MIN (>60); Glucose 113 mg/dL (74-106); Potassium 4.5 mmoL/L (3.5-5.1); Sodium 142 mmol/L (136-145)
== END ==
PROVIDERS: Visit Provider Internal Medicine
DX: N17.9 Acute kidney failure, unspecified (principal); R55 Syncope and collapse; E86.0 Dehydration
CPT/HCPCS: 36415; 80048

== ENCOUNTER → 2019-02-16 09:03 | Outpatient (CLI) | payer BC, SELFPAY ==
[2019-02-16 09:26] LABS: Anion Gap 11.9 mEq/L (5-15); Blood Urea Nitrogen 33 mg/dL (7-18); Calcium 9.1 mg/dL (8.5-10.1); Carbon Dioxide 27 mmol/L (21.0-32.0); Chloride 102 mmol/L (98-107); Estimated Glomerular Filt Rate 32 ml/min (>60); GFR (African American) 39 ML/MIN (>60); Glucose 143 mg/dL (74-106); Potassium 3.9 mmoL/L (3.5-5.1); Sodium 137 mmol/L (136-145)
== END ==
PROVIDERS: Visit Provider Internal Medicine
DX: N17.9 Acute kidney failure, unspecified (principal)
CPT/HCPCS: 36415; 80048

== ENCOUNTER → 2019-03-02 08:57 | Outpatient (CLI) | payer BC, SELFPAY ==
[2019-03-02 09:24] LABS: Anion Gap 11.9 mEq/L (5-15); Blood Urea Nitrogen 26 mg/dL (7-18); Carbon Dioxide 28 mmol/L (21.0-32.0); Chloride 105 mmol/L (98-107); Creatinine,Serum 1.75 mg/dL (0.70-1.30); Estimated Glomerular Filt Rate 40 ml/min (>60); GFR (African American) 49 ML/MIN (>60); Glucose 102 mg/dL (74-106); Potassium 3.9 mmoL/L (3.5-5.1); Sodium 141 mmol/L (136-145)
== END ==
PROVIDERS: Visit Provider Internal Medicine
DX: N17.9 Acute kidney failure, unspecified (principal); N18.3 Chronic kidney disease, stage 3 (moderate)
CPT/HCPCS: 36415; 80048

== ENCOUNTER → 2019-03-16 08:32 | Outpatient (CLI) | payer BC, SELFPAY ==
[2019-03-16 08:50] LABS: Anion Gap 13.2 mEq/L (5-15); Blood Urea Nitrogen 21 mg/dL (7-18); Calcium 8.9 mg/dL (8.5-10.1); Carbon Dioxide 26 mmol/L (21.0-32.0); Chloride 106 mmol/L (98-107); Creatinine,Serum 1.67 mg/dL (0.70-1.30); Estimated Glomerular Filt Rate 42 ml/min (>60); GFR (African American) 51 ML/MIN (>60); Glucose 103 mg/dL (74-106); Potassium 4.2 mmoL/L (3.5-5.1); Sodium 141 mmol/L (136-145)
== END ==
PROVIDERS: Visit Provider Internal Medicine
DX: N17.9 Acute kidney failure, unspecified (principal); N18.3 Chronic kidney disease, stage 3 (moderate); I25.10 Atherosclerotic heart disease of native coronary artery without angina pectoris; I50.22 Chronic systolic (congestive) heart failure
CPT/HCPCS: 36415; 80048

== ENCOUNTER → 2019-03-30 08:41 | Outpatient (CLI) | payer BC, SELFPAY ==
[2019-03-30 09:03] LABS: Anion Gap 11.8 mEq/L (5-15); Blood Urea Nitrogen 25 mg/dL (7-18); Calcium 8.9 mg/dL (8.5-10.1); Carbon Dioxide 27 mmol/L (21.0-32.0); Chloride 107 mmol/L (98-107); Creatinine,Serum 1.49 mg/dL (0.70-1.30); Estimated Glomerular Filt Rate 48 ml/min (>60); GFR (African American) 58 ML/MIN (>60); Glucose 117 mg/dL (74-106); Potassium 3.8 mmoL/L (3.5-5.1); Sodium 142 mmol/L (136-145)
== END ==
PROVIDERS: Urology; Visit Provider Internal Medicine
DX: I25.10 Atherosclerotic heart disease of native coronary artery without angina pectoris (principal); I48.91 Unspecified atrial fibrillation; I51.89 Other ill-defined heart diseases; R06.02 Shortness of breath
CPT/HCPCS: 36415; 80048

== ENCOUNTER → 2019-04-30 08:43 | Outpatient (CLI) | payer BC, SELFPAY ==
[2019-04-30 09:09] LABS: Anion Gap 12.9 mEq/L (5-15); Blood Urea Nitrogen 20 mg/dL (7-18); Calcium 8.8 mg/dL (8.5-10.1); Carbon Dioxide 25 mmol/L (21.0-32.0); Chloride 108 mmol/L (98-107); Creatinine,Serum 1.37 mg/dL (0.70-1.30); Estimated Glomerular Filt Rate 53 ml/min (>60); GFR (African American) 64 ML/MIN (>60); Glucose 122 mg/dL (74-106); Potassium 3.9 mmoL/L (3.5-5.1); Sodium 142 mmol/L (136-145)
== END ==
PROVIDERS: Visit Provider Internal Medicine
DX: N18.9 Chronic kidney disease, unspecified (principal)
CPT/HCPCS: 36415; 80048

== ENCOUNTER 2021-01-26 13:50 | Outpatient (CLI) | payer BC, SELFPAY ==
[2021-01-26 13:52] VITALS: BMI 30.3
[2021-01-26 14:20] LABS: Hematocrit 50.3 % (42.0-52.0); Hemoglobin 17.4 g/dL (14.1-18.0)
--- NOTE | 2021-01-26 14:25 | PC.NURSE ---
1425-notified with lab results hct 50.3; asked if pt could return in a week and have labs rechecked an possible therapeutic phlebotomy if hct is elevated instead of lowering him since he is right at the cut off; per ok for pt skip phlebotomy and come back next week.
== END 2021-01-26 14:30 | disposition home or self-care (01) ==
LOC: INF 13:51
PROVIDERS: Visit Provider Internal Medicine
DX: R79.1 Abnormal coagulation profile (principal)
CPT/HCPCS: 85014; 85018

== ENCOUNTER 2021-02-02 14:00 | Outpatient (CLI) | payer BC, SELFPAY ==
[2021-02-02 14:03] VITALS: BMI 30.3
[2021-02-02 14:13] LABS: Hematocrit 49.9 % (42.0-52.0); Hemoglobin 17.2 g/dL (14.1-18.0)
--- NOTE | 2021-02-02 14:18 | PC.NURSE ---
1418-pt here for therapeutic phlebotomy if hct >50; pt's hct 49.9 pt to return next week for week lab check
== END 2021-02-02 14:18 | disposition home or self-care (01) ==
LOC: INF 14:02
PROVIDERS: Visit Provider Internal Medicine
DX: R79.1 Abnormal coagulation profile (principal)
CPT/HCPCS: 85014; 85018

== ENCOUNTER 2021-02-09 14:16 | Outpatient (CLI) | payer BC, SELFPAY ==
[2021-02-09 14:08] VITALS: BMI 30.3
[2021-02-09 14:28] LABS: Hematocrit 51.4 % (42.0-52.0); Hemoglobin 17.3 g/dL (14.1-18.0)
[2021-02-09 14:50] VITALS: BP 173/115; PULSE 68; RESP 20; TEMP 36.9; O2SAT 95
--- NOTE | 2021-02-09 15:52 | PC.NURSE ---
PT HERE FOR LABS AND THERAPUTIC PHLEBOTOMY; LABS WERE CHECKED AND HCT WAS 51.4; ORDERS ARE TO TAKE 250 ML OFF WHEN HCT IS ABOVE 50. PT STATED THAT HE HAD NOT TAKEN BP PILLS FOR THE LAST THREE DAYS. INITIAL BP WAS 176/117; WAITED 20 MINS AND REPEATED AT THIS TIME PRESSURE WAS 203/142 CALLED MD WHILE PATIENT WAS GETTING PHLEBOTOMY AND ORDERS WERE RECEIVED TO GIVE HOME BP MEDS. BISOPROLOL AND DILITAZEM WERE ORDERED AT GIVEN AT 1530. PT BP WAS RETAKEN AT 1550 AMD BP WAS 173/115; MD OK'D FOR PATIENT TO GO HOME AT THIS TIME
[2021-02-09 16:04] VITALS: BP 203/142; PULSE 78; RESP 20; TEMP 36.9
== END 2021-02-09 15:50 | disposition home or self-care (01) ==
LOC: INF 14:16
PROVIDERS: Visit Provider Internal Medicine
DX: R79.1 Abnormal coagulation profile (principal)
CPT/HCPCS: 36415; 85014; 85018; 99195

== ENCOUNTER 2021-02-16 13:31 | Outpatient (CLI) | payer BC, SELFPAY ==
[2021-02-16 13:35] VITALS: BMI 30.3
[2021-02-16 14:28] LABS: Hemoglobin 16.5 g/dL (14.1-18.0)
--- NOTE | 2021-02-16 15:40 | PC.NURSE ---
02/16/21 1349 lab staff phong at pt chairside to obtain blood for labs as ordered per .
== END 2021-02-16 14:40 | disposition home or self-care (01) ==
LOC: INF 13:32
PROVIDERS: PCP Internal Medicine; Visit Provider Internal Medicine
DX: R79.1 Abnormal coagulation profile (principal)
CPT/HCPCS: 36415; 85014; 85018

== ENCOUNTER → 2021-05-01 15:34 | Outpatient (CLI) | payer BC, SELFPAY ==
[2021-05-01 16:44] LABS: Basophils # 0.1 K/mm3 (0-0.2); Basophils % 1.1 % (0.1-2.0); Eosinophils # 0.2 K/mm3 (0.0-0.4); Eosinophils % 2.3 % (0.1-12.0); Hemoglobin 17.9 g/dL (14.1-18.0); Lymphocytes # 1.9 K/mm3 (0.7-4.5); Lymphocytes % 18.3 % (10-50); Mean Corpuscular HGB Conc 33.1 g/dL (31.8-35.4); Mean Corpuscular Hemoglobin 33.1 pg (27.0-31.2); Mean Corpuscular Volume 100.2 fl (80-94); Mean Platelet Volume 9.9 fl (7.4-10.4); Monocytes # 0.7 K/mm3 (0.1-1.0); Monocytes % 6.3 % (1.7-9.3); Neutrophils # 7.4 K/mm3 (1.8-7.8); Platelet Count 362 K/mm3 (142-424); Red Blood Count 5.39 M/mm3 (4.60-6.20); Red Cell Distribution Width 14.1 % (11.5-17.5); White Blood Count 10.3 K/mm3 (4.8-10.8)
[2021-05-01 17:32] LABS: Alanine Aminotransferase 32 U/L (12-78); Albumin Level 3.9 g/dl (3.5-5.0); Albumin/Globulin Ratio 1.7 (1.1-1.8); Alkaline Phosphatase 41 U/L (38-126); Anion Gap 13.8 mEq/L (5-15); Aspartate Amino Transferase 27 U/L (17-59); Bilirubin,Total 1.1 mg/dl (0.2-1.3); Blood Urea Nitrogen 18 mg/dl (9-20); Calcium 8.9 mg/dl (8.4-10.2); Carbon Dioxide 27 mmol/L (22.0-30.0); Chloride 106 mmol/L (98-107); Chol/HDL Ratio 4.6 (1-3.5); Cholesterol 174 mg/dl (140-200); Estimated Glomerular Filt Rate 62 ml/min (>60); GFR (African American) 74 ML/MIN (>60); Globulin 2.3 g/dL (1.3-3.2); Glucose 75 mg/dl (74-100); HDL Cholesterol 38 mg/dl (40-60); Potassium 4.8 mmoL/L (3.5-5.1); Sodium 142 mmol/L (136-145); Total Protein,Serum 6.2 g/dl (6.3-8.2); Triglycerides 114 mg/dl (30-150); VLDL Cholesterol 23 mg/dL (0-40)
[2021-05-01 17:43] LABS: Direct LDL Cholesterol 120.22 mg/dL (100-129)
== END ==
PROVIDERS: Visit Provider Internal Medicine
DX: I25.10 Atherosclerotic heart disease of native coronary artery without angina pectoris (principal); I10 Essential (primary) hypertension; E78.5 Hyperlipidemia, unspecified; I48.91 Unspecified atrial fibrillation; N18.9 Chronic kidney disease, unspecified
CPT/HCPCS: 80053; 80061; 85025

== ENCOUNTER 2021-05-18 10:43 | Observation (INO) | payer BC, SELFPAY ==
[2021-05-18] VITALS (16 sets, daily range): BP systolic 108–158; BP diastolic 67–113; PULSE 80–100; RESP 17–22; TEMP 36.6–36.9; O2SAT 93–99; BMI 29.0; BMI 28.9
--- NOTE | 2021-05-18 10:40 | ECG_ITS ---
APPROVED REPORT Exam: Resting ECG HR:86 bpm ECG Measurements Heart Rate 86 AXES QRSd 86 QRS 60 QT 370 T 54 QTc 442 Conclusion Atrial fibrillation Abnormal ECG Electronically signed by : Nicholas Barrett MD 05/19/2021 12:17:20
--- NOTE | 2021-05-18 10:45 | XR_ITS ---
PROCEDURE: XR CHEST PORTABLE CLINICAL HISTORY: SYNCOPE COMPARISON: CR CXR1 CHEST-PORTABLE from 02/02/2014 CR CXR CHEST(2 VIEWS-NOT PORTABLE) from 08/23/2014 CR XR CHEST 2V from 06/04/2019 FINDINGS: The cardiomediastinal silhouette and pulmonary vascularity are within normal limits. The lungs are clear without infiltrates, suspicious nodules, or pleural effusions. No acute bony abnormalities. IMPRESSION: No acute findings. Dictated by: Parish Monte MD 05/18/2021 10:58 Parish Monte MD in [facility] 05/18/2021 10:58
--- NOTE | 2021-05-18 11:20 | CT_ITS ---
PROCEDURE: CT HEAD/BRAIN WO CON CLINICAL INDICATION: syncope, chest pain COMPARISON: No exams were available for comparison TECHNIQUE: Axial images obtained. All CT scans at the facility use one or more dose reduction, viz: automated exposure control, ma/kV adjustment per patient size (including targeted exams where dose is matched to indication, i.e. head), or iterative reconstruction technique. FINDINGS: No midline shift, mass effect, intracranial hemorrhage, hydrocephalus, or extra-axial fluid collection is evident. The calvarium has an unremarkable appearance. No mastoid effusion. There is a small retention cyst in the roof the left maxillary sinus. IMPRESSION: No acute intracranial finding Dictated by: Parish Monte MD 05/18/2021 12:30 Parish Monte MD in [facility] 05/18/2021 12:30
--- NOTE | 2021-05-18 11:20 | CT_ITS ---
PROCEDURE: CT ANGIO CHEST PE PROTOCOL CLINCIAL INDICATION: syncope, chest pain COMPARISON: No exams were available for comparison TECHNIQUE: IV Contrast: 70ML Isovue 370 Axial images obtained with sagittal and coronal reformats. All CT scans at the facility use one or more dose reduction, viz: automated exposure control, ma/kV adjustment per patient size (including targeted exams where dose is matched to indication, i.e. head), or iterative reconstruction technique. FINDINGS: HEART AND MEDIASTINAL STRUCTURES: Unremarkable.No evidence of pulmonary embolus, aortic aneurysm, or aortic dissection. There are few mediastinal lymph. Coronary artery calcifications and or stents are present. LUNGS AND PLEURAL SPACES: 4 mm noncalcified nodules present in the right upper lobe posteriorly 5 mm right upper lobe nodule posteriorly 5 mm right lower lobe nodule which has a ground-glass appearance. There is some thickening of the right minor fissure. Faint area of ground-glass infiltrate in the right upper lobe posteriorly there is an additional 5 mm nodule in the right upper lobe posteriorly. These are marked on the images. There are faint opacities in the superior segment left lower lobe.. Subpleural opacity is present in the left upper lobe anterior laterally at 4 mm the BONY STRUCTURES: No acute bony abnormalities apparent. UPPER ABDOMEN: There is bilateral adrenal enlargement consistent with adenomas. The right adrenal gland is 3.2 x 2.4 cm. The left adrenal gland is 3.1 x 2 cm. ADDITIONAL FINDINGS: No other significant abnormalities. IMPRESSION: No evidence of pulmonary embolus, aortic aneurysm, or aortic dissection. Numerous bilateral pulmonary nodular opacities as described above. These are nonspecific and could be inflammatory/infectious or even neoplastic. Suggest [address] for follow-up as well as correlation with clinical parameters. Diffuse coronary artery disease. Bilateral adrenal adenomas Dictated by: Parish Monte MD 05/18/2021 12:48 Parish Monte MD in [facility] 05/18/2021 12:48
--- NOTE | 2021-05-18 11:21 | HMH.EDGENADL ---
ED Disposition Clinical Impression: Syncope Disposition: Admitted As Inpatient Condition on Discharge: Good - Critical Care Critical Care Time: No Attestation: On 05/18/21, the high probability of a clinically significant, sudden or life threatening deterioration of the following system(s) required my full and direct attention, intervention and personal management. The time I documented below is in addition to time spent performing reported procedures but includes the following listed in this critical care notation. Medical Decision Making - Jose Martin Inquiry Pt receiving controlled substance: No Vital Signs: 05/18/21 10:43 05/18/21 12:15 05/18/21 12:16 Temperature 97.8 F Temperature Source Oral Pulse Rate 83 100 H Pulse Rate [Left Radial] 84 Respiratory Rate 18 18 Blood Pressure 143/90 H 143/90 H Blood Pressure [Right Arm] 146/101 H Blood Pressure Mean 110 Blood Pressure Mean [Right Arm] 116 Blood Pressure Source Blood Pressure Source [Right Arm] Automatic Cuff Blood Pressure Position Blood Pressure Position [Right Arm] Sitting 02 Sat by Pulse Oximetry 97 98 99 Oxygen Delivery Method Room Air Room Air 05/18/21 12:30 05/18/21 13:01 05/18/21 13:21 Temperature Temperature Source Pulse Rate 89 90 80 Pulse Rate [Left Radial] Respiratory Rate 17 Blood Pressure 129/95 H 147/85 H 147/85 H Blood Pressure [Right Arm] Blood Pressure Mean 103 100 Blood Pressure Mean [Right Arm] Blood Pressure Source Automatic Cuff Blood Pressure Source [Right Arm] Blood Pressure Position Sitting Blood Pressure Position [Right Arm] 02 Sat by Pulse Oximetry 96 97 98 Oxygen Delivery Method Room Air 05/18/21 13:30 05/18/21 14:00 05/18/21 14:30 Temperature Temperature Source Pulse Rate 84 86 92 H Pulse Rate [Left Radial] Respiratory Rate Blood Pressure 135/94 H 142/99 H 146/113 H Blood Pressure [Right Arm] Blood Pressure Mean 103 113 120 Blood Pressure Mean [Right Arm] Blood Pressure Source Blood Pressure Source [Right Arm] Blood Pressure Position Blood Pressure Position [Right Arm] 02 Sat by Pulse Oximetry 96 97 95 Oxygen Delivery Method 05/18/21 15:00 05/18/21 15:30 05/18/21 16:00 Temperature Temperature Source Pulse Rate 82 92 H Pulse Rate [Left Radial] Respiratory Rate Blood Pressure 142/101 H 145/101 H 157/99 H Blood Pressure [Right Arm] Blood Pressure Mean 113 112 119 Blood Pressure Mean [Right Arm] Blood Pressure Source Blood Pressure Source [Right Arm] Blood Pressure Position Blood Pressure Position [Right Arm] 02 Sat by Pulse Oximetry 94 L 96 Oxygen Delivery Method 05/18/21 16:30 Temperature Temperature Source Pulse Rate 99 H Pulse Rate [Left Radial] Respiratory Rate Blood Pressure 158/96 H Blood Pressure [Right Arm] Blood Pressure Mean 121 Blood Pressure Mean [Right Arm] Blood Pressure Source Blood Pressure Source [Right Arm] Blood Pressure Position Blood Pressure Position [Right Arm] 02 Sat by Pulse Oximetry 99 Oxygen Delivery Method - Lab Data Lab Results 05/18/21 11:00: WBC 13.4 H, RBC 5.47, Hgb 18.3 H, Hct 52.1 H, MCV 95.3 H, MCH 33.2 H, MCHC 34.8, RDW 14.6, Plt Count 318, MPV 8.5, Neut % (Auto) 67.5, Lymph % (Auto) 23.3, [place] % (Auto) 6.2, Eos % (Auto) 1.9, Baso % (Auto) 1.3, Neut # (Auto) 9.0 H, Lymph # (Auto) 3.1, [place] # (Auto) 0.8, Eos # (Auto) 0.3, Baso # (Auto) 0.2 05/18/21 11:00: Sodium 140, Potassium 4.1, Chloride 104, Carbon Dioxide 29, Anion Gap 11.1, BUN 16, Creatinine 1.20, Estimated Creat Clear 75, Estimated GFR 62, Est GFR ( Amer) 74, Glucose 106 H, Calcium 9.4, Troponin I < 0.01 05/18/21 13:48: Troponin I < 0.01 05/18/21 16:16: SARS-CoV-2 (PCR) Not detected, Influenza A Untype (PCR) Not detected, Influenza Type B (PCR) Not detected Result diagrams: 05/18/21 11:00 05/18/21 11:00 Orders (Tests/Meds): ED MEDICATIONS Gener
[2021-05-18 11:22] LABS: Basophils # 0.2 K/mm3 (0-0.2); Basophils % 1.3 % (0.1-2.0); Eosinophils # 0.3 K/mm3 (0.0-0.4); Eosinophils % 1.9 % (0.1-12.0); Hematocrit 52.1 % (42.0-52.0); Lymphocytes # 3.1 K/mm3 (0.7-4.5); Lymphocytes % 23.3 % (10-50); Mean Corpuscular HGB Conc 34.8 g/dL (31.8-35.4); Mean Corpuscular Hemoglobin 33.2 pg (27.0-31.2); Mean Corpuscular Volume 95.3 fl (80-94); Mean Platelet Volume 8.5 fl (7.4-10.4); Monocytes # 0.8 K/mm3 (0.1-1.0); Monocytes % 6.2 % (1.7-9.3); Neutrophils % 67.5 % (37.0-80.0); Platelet Count 318 K/mm3 (142-424); Red Blood Count 5.47 M/mm3 (4.60-6.20); Red Cell Distribution Width 14.6 % (11.5-17.5); White Blood Count 13.4 K/mm3 (4.8-10.8)
--- NOTE | 2021-05-18 11:23 | CT_ITS ---
PROCEDURE: CT ABDOMEN PELVIS W CON CLINICAL INDICATION: back pain, syncope, tingling in bilateral feet COMPARISON: CT ABDPELW/O CT ABD PELVIS W/O CONTRAST from 02/02/2014 TECHNIQUE: IV Contrast: 75ML Isovue 370 Oral Contrast None Axial images obtained with sagittal and coronal reformats. All CT scans at the facility use one or more dose reduction, viz: automated exposure control, ma/kV adjustment per patient size (including targeted exams where dose is matched to indication, i.e. head), or iterative reconstruction technique. FINDINGS: The liver, spleen, and pancreas has an unremarkable appearance. There are few small periportal lymph nodes. There is bilateral adrenal enlargement consistent with adenomas slightly more prominent on the right compared to the previous exam. No renal or ureteral calculi. No hydronephrosis. There is a small left renal cortical cyst with a cortical scar. No intestinal obstruction or free air. No evidence of appendicitis. There is colonic diverticulosis. No evidence of diverticulitis. There is a small umbilical hernia containing fat. There are degenerative changes in the lower thoracic and upper lumbar spine. IMPRESSION: No acute finding Bilateral adrenal enlargement consistent with adenomas Dictated by: Parish Monte MD 05/18/2021 13:16 Parish Monte MD in [facility] 05/18/2021 13:17
--- NOTE | 2021-05-18 11:23 | CT_ITS ---
PROCEDURE: CT THORACIC SPINE WO CON CLINICAL HISTORY: back pain, syncope, tingling in bilateral feet COMPARISON: No exams were available for comparison TECHNIQUE: Axial images obtained with sagittal and coronal reformats. All CT scans at the facility use one or more dose reduction, viz: automated exposure control, ma/kV adjustment per patient size (including targeted exams where dose is matched to indication, i.e. head), or iterative reconstruction technique. FINDINGS: There is normal alignment. No acute fracture or dislocation is evident. No lytic changes. Wedge changes are present at L1 which may be chronic with loss of height anteriorly of approximately 40 percent. Degenerative disc disease is present at C6-C7 and C7-T1. Degenerative disc disease is present from T6-L2. Anterior bridging osteophytes are present in the lower thoracic spine. The degenerative disc disease is most severe at T9-T10 and T10-T11. At T9-T10 there is mild bilateral lateral recess narrowing from facet hypertrophic change. Bilateral lateral recess narrowing at T10-T11 also from facet hypertrophy. There is mild bulging disc at L1-L2. There is mild upper thoracic curvature convex right IMPRESSION: Multilevel thoracic spondylosis. Please see above for detail. No acute finding Dictated by: Parish Monte MD 05/18/2021 13:00 Parish Monte MD in [facility] 05/18/2021 13:00
[2021-05-18 11:34] LABS: Anion Gap 11.1 mEq/L (5-15); Blood Urea Nitrogen 16 mg/dl (9-20); Calcium 9.4 mg/dl (8.4-10.2); Carbon Dioxide 29 mmol/L (22.0-30.0); Chloride 104 mmol/L (98-107); Creatinine Clearance Estimated 75 mL/min (50-200); Estimated Glomerular Filt Rate 62 ml/min (>60); GFR (African American) 74 ML/MIN (>60); Glucose 106 mg/dl (74-100); Potassium 4.1 mmoL/L (3.5-5.1); Sodium 140 mmol/L (136-145)
[2021-05-18 11:48] LABS: Hemoglobin 18.3 g/dL (14.1-18.0); Troponin I < 0.01 ng/ml (0.00-0.034)
--- NOTE | 2021-05-18 11:55 | CT_ITS ---
Procedure: CT ANGIO ABDOMEN PELVIS CLINICAL HISTORY: tingling feet, syncope, back pain The COMPARISON: CT CT ABDOMEN PELVIS W CON from 05/18/2021 TECHNIQUE: IV Contrast: 100ml Isovue 370 Axial images obtained with sagittal and coronal reformats. All CT scans at the facility use one or more dose reduction, viz: automated exposure control, ma/kV adjustment per patient size (including targeted exams where dose is matched to indication, i.e. head), or iterative reconstruction technique. FINDINGS: There is focal fusiform dilatation involving the abdominal aorta at the L3-L4 level measuring a maximum of 2.4 cm in AP dimension and 2.2 cm transverse with some mural thrombus within the fusiform area of dilatation. The aortic lumen is approximately 1.9 cm. No evidence of aortic dissection. Calcific plaque is present at the ostium of the SMA. No stenotic lesion evident.. There is no evidence of retroperitoneal hemorrhage. Scattered atheromatous changes involve the aortoiliac vessels without significant stenosis. Nonacute findings are present involving the abdomen described on the CT abdomen of the same day at 12:53 p.m.. Please see that exam for further description. There is a small focal area of enhancement involving the hepatic dome on the arterial phase images and could be due to small hemangioma. Stability may be confirmed with follow-up. 2 nodular areas of enhancement are present at this region measuring approximately 5 and 3 mm. IMPRESSION: 1. Small focal fusiform dilatation of the abdominal aorta at 2.4 x 2.2 cm. No evidence of retroperitoneal hemorrhage. 2. Scattered atheromatous changes of the aortoiliac vessels. 3. Small nodular area of enhancement in the hepatic dome possibly due to a hemangioma. Follow-up may confirm stability. Dictated by: Parish Monte MD 05/18/2021 14:10 Parish Monte MD in [facility] 05/18/2021 14:10
--- NOTE | 2021-05-18 12:11 | PC.NURSE ---
returned from radiology at this time
--- NOTE | 2021-05-18 13:55 | PC.NURSE ---
urinal provided at this time
--- NOTE | 2021-05-18 13:58 | PC.NURSE ---
updated at this time
[2021-05-18 14:17] LABS: Troponin I < 0.01 ng/ml (0.00-0.034)
--- NOTE | 2021-05-18 15:12 | PC.NURSE ---
eddie pérez aprn notified of cardiology consult
--- NOTE | 2021-05-18 15:23 | PC.NURSE ---
peep pérez, zinc chloride operator at bedside
--- NOTE | 2021-05-18 15:36 | HMH.CNCARD ---
History of Present Illness Consult date: 05/18/21 Requesting physician: Sebastian Urbina Consult reason: chest pain Chief complaint: syncope and chest pain Additional Medical History:: [facility] 2019: 1. The left main artery normal 2. The left anterior descending artery has proximal 10% stenoses. The entire vessel is a small caliber 2 mm vessel from the proximal through the mid segment and a 1 mm vessel distally. A large first diagonal artery has a stent in the proximal segment which is widely patent free of in-stent restenosis 3. The ramus intermedius is a long 1.5 mm caliber vessel which has 20-30% stenoses 4. The circumflex artery is probably dominant and has proximal 30% stenoses with a stent in the mid segment which is widely patent with mild in-stent restenosis. The first obtuse marginal artery is 1.5 mm in diameter and has proximal 80-90% stenosis 5. The right coronary artery is nondominant and has proximal 20% stenosis followed by proximal to mid vessel and even distal stent although the contiguous manner which has 30% diffuse in-stent restenosis 6. The VINCENT ventriculogram reveals preserved at 55% 7. The left ventricular end-diastolic pressure 25 mmHg IMPRESSION: 1. Small vessel coronary arteries as described above 2. Patent stent in the large proximal first diagonal artery 3. Severe disease in a small obtuse marginal artery 4. Preserved ejection fraction 5. Moderately elevated LVEDP PLAN: 1. Medical management 2. Patient likely has significant diastolic dysfunction as evidenced by the LVEDP and should benefit from diuretics ECHO 2019: 1. Mildly enlarged left atrium, normal left ventricular size, mild concentric left ventricular hypertrophy, visually estimated ejection fraction 50% with no regional wall motion abnormality. Diastolic parameters are inconclusive. 2. Moderate mitral and mild tricuspid regurgitation. 3. No significant pericardial effusion noted. History of present illness: This is a 61-year-old white gentleman who presented to the emergency department after an episode of syncope. The patient states that he passed out while standing at the kitchen sink drinking milk this morning. The patient states he hit his back on a stepladder when he went down. He states just before having his syncopal episode he did have some chest pain. He states that this was a sharp sensation in the center of his chest and then ran across his entire chest. It was associated with about 2 to 3 seconds of dizziness before he passed out. The patient states that he was only passed out for about 2 or 3 seconds and then he woke up. The syncope was witnessed by his . The patient states that he hit his mid to lower back when he passed out. He denies any chest pain or pressure since that time. He denies any more episodes of dizziness or syncope since that time. The patient does have a history of coronary artery disease status post stenting, atrial fibrillation on Xarelto, hypertension and hyperlipidemia. He continues to smoke. He denies any fever, chills, nausea, vomiting, diarrhea, PND or orthopnea. [facility] History I have reviewed the patient's past medical history: Yes Medical History: Reports:: Atrial Fibrillation, Cardiomyopathy, Congestive Heart Failure, Coronary Artery Disease, Hyperlipidemia, Hypertension Denies:: Cancer, Diabetes Mellitus Type 1, Diabetes Mellitus Type 2, MRSA, Seizures *Have you ever received a pneumonia vaccine?: No *Have you received a flu vaccine this season?: No Laterality Cases: Left: Other, Bilateral: Tonsillectomy Other Surgeries: Yes: No Previous Surgery, Cardiac Catheterization, Coronary Stent Amputation: No Fractures: No - *Social History Smoking Status: Current every day smoker # Packs/Day (cigarettes): 1 Alcohol Intake: never Substance Use Type: denies use *Occupational Status:: employed Housing: house Household Members: spouse *Travel in the last 8 weeks: None Family Hx:: Cancer, Diabetes, Hypertension,
--- NOTE | 2021-05-18 15:42 | PC.NURSE ---
dr. nicole speaking with dr. rosa (service md)
--- NOTE | 2021-05-18 15:43 | PC.NURSE ---
speaking to dr rosa
--- NOTE | 2021-05-18 15:44 | PC.NURSE ---
warehouse receiving clerk notified of bed request
--- NOTE | 2021-05-18 15:46 | CA_ITS ---
APPROVED REPORT Exam: Pharmacologic Technologist: Siomara Núñez, Ht: 5 ft 6 in Wt: 180 lbs BSA: 1.91 m2 HR: 79 bpm BP: 128/72 mmHg Rhythm: Afib, rate controlled, NS ST-T abn inferiorly Indications: Syncope, CP Medical History Medical History: HTN, Hyperlipidemia Medications: Lisinopril,,,,, Prednisone,,,,, BisOPROLOL,,,,, Tizanidine,,,,, DilTiazem,,,,, Nitro,,,,, AtorvaASTATIN,,,,, RIvaROXABAN,,,,, Furosemide,,,,, MVI,,,,, Cardiac Risk Factors: HTN, Hyperlipidemia Stress Test Details Test: LEXISCAN HR Resting HR: 63 bpm Max Heart Rate (APMHR): 159.685532 bpm Max HR Achieved: 105 bpm Target HR (85% APMHR): 135.461673 bpm % of APMHR: 66.04 Recovery HR: 85 bpm BP Resting BP: 128/72 mmHg Max BP: 148/95 mmHg Recovery BP: 148.0/95.0 mmHg ECG Resting ECG: Afib, rate controlled, NS ST-Tabn inferiorly Clinical Exercise duration: 04:01 min Highest Stage Achieved: Stress ECG Conclusion During lexiscan pt experinced SOA, N/V, malaise. No CP noted. Afib with pauses up to 2.06 seconds long. No significant ST changes. Unremarkable lexiscan stress. Myoview images reported separately. Test Summary RECOVERY 04:00 . . 90 . 131/ 82 . . REST 03:53 . . 63 . 128/ 72 . . Stage 1 01:00 . . 66 . . . . Stage 2 01:00 . . 52 . . . . Stage 3 01:00 . . 65 . 100/ 61 . . Stage 4 01:00 . . 88 . . . . Stage 4 01:01 . . 88 . . . Stop exercise at 04:01 RECOVERY 01:00 . . 87 . . . . RECOVERY 02:00 . . 86 . 148/ 95 . . RECOVERY 03:00 . . 76 . 143/ 92 . . RECOVERY 04:00 . . 90 . 131/ 82 . . RECOVERY 04:11 . . 66 . 131/ 82 . . Electronically signed by : Octaviano Chen MD 05/19/2021 13:29:10
--- NOTE | 2021-05-18 16:01 | PC.NURSE ---
echo performed at this time
[2021-05-18 16:18] LABS: Coronavirus 19, PCR Not Detected (NotDetected); Influenza A, PCR Not Detected (NotDetected); Influenza B, PCR Not Detected (NotDetected)
--- NOTE | 2021-05-18 16:24 | HMH.HP ---
*Admission Date: 05/18/21 *Chief complaint: chest pain and syncope *History of present illness: History of present illness: This is a 61-year-old white gentleman who presented to the emergency department after an episode of syncope. The patient states that he passed out while standing at the kitchen sink drinking milk this morning. The patient states he hit his back on a stepladder when he went down. He states just before having his syncopal episode he did have some chest pain. He states that this was a sharp sensation in the center of his chest and then ran across his entire chest. It was associated with about 2 to 3 seconds of dizziness before he passed out. The patient states that he was only passed out for about 2 or 3 seconds and then he woke up. The syncope was witnessed by his . The patient states that he hit his mid to lower back when he passed out. He denies any chest pain or pressure since that time. He denies any more episodes of dizziness or syncope since that time. The patient does have a history of coronary artery disease status post stenting, atrial fibrillation on Xarelto, hypertension and hyperlipidemia. He continues to smoke. He denies any fever, chills, nausea, vomiting, diarrhea, PND or orthopnea. The above documentation as per cardiology. At the time of this exam patient is lying on a stretcher in the ER and appears comfortable. He is awaiting a bed on the medical floor after completing a Covid test. He denies any chest pain, shortness of breath, and nausea. He states his heart always flutters and runs around due to his chronic atrial fibrillation. He denies a headache, extremity weakness, changes in vision and mental status, or any respiratory symptoms. Laboratory data reveals troponin of 0.01 x 2, normal sodium and potassium and renal function. Chest x-ray showed no acute findings. CT of the chest with PE protocol revealed no evidence of pulmonary embolism, aortic aneurysm, or aortic dissection. Numerous bilateral pulmonary nodular opacities were noted. Diffuse coronary artery disease. Bilateral adrenal adenomas. CT of the head reveals no acute intracranial findings. CT of the abdomen and pelvis revealed no acute findings with bilateral adrenal enlargement consistent with adenomas. CT of the abdomen with contrast revealed the followin. Small focal fusiform dilatation of the abdominal aorta at 2.4 x 2.2 cm. No evidence of retroperitoneal hemorrhage. 2. Scattered atheromatous changes of the aortoiliac vessels. 3. Small nodular area of enhancement in the hepatic dome possibly due to a hemangioma. Follow-up may confirm stability. Results of the CT of the thoracic spine and echocardiogram are pending. [facility] History Medical History: Reports:: Arrhythmia, Atrial Fibrillation, Cardiomyopathy, Congestive Heart Failure, Coronary Artery Disease, Hyperlipidemia, Hypertension Denies:: Cancer, Diabetes Mellitus Type 1, Diabetes Mellitus Type 2, MRSA, Seizures *Have you ever received a pneumonia vaccine?: No *Have you received a flu vaccine this season?: No Other Medical History: Reports: Arthritis Comment:: Chronic back pain with previous back surgeries. Laterality Cases: Left: Other, Bilateral: Tonsillectomy Other Surgeries: Yes: Cardiac Catheterization, Coronary Stent Amputation: No Fractures: No Comment: Previous back surgery - *Social History Smoking Status: Current every day smoker # Packs/Day (cigarettes): 1 Alcohol Intake: never Substance Use Type: denies use *Occupational Status:: employed Housing: house Household Members: spouse *Travel in the last 8 weeks: None Family Hx:: Cancer, Diabetes, Hypertension, Stroke, Tuberculosis, Coronary Artery Disease Review of Systems - Constitutional Denies fever(s), Denies lack of energy - Eyes Denies change in vision - ENT Denies ear pain, Denies headache(s), Denies nasal congestion Comments: Always has sinus issues - *Cardiovascular Reports chest pain
--- NOTE | 2021-05-18 16:49 | PC.NURSE ---
report given to [place] COOPER
[2021-05-18 18:23] LABS: Troponin I < 0.01 ng/ml (0.00-0.034)
[2021-05-19] VITALS: BP 111/69; PULSE 74; PULSE 90; RESP 16; TEMP 36.6; O2SAT 97
[2021-05-19 04:00] VITALS: PULSE 65
--- NOTE | 2021-05-19 07:41 | P.CONPHA_ITS ---
[facility] VTE Monitoring - Patient Demographics Admission date: 05/19/21 Report Date: 05/19/21 Time: 07:42 Allergies/Adverse Reactions: Patient Allergies No Known Drug Intolerances Allergy (Unknown, Verified 06/04/19 09:25) Unknown allergy reaction Height: 1.68 m Weight: 81.647 kg Patient Problems: Current Active Problems Atrial fibrillation (Chronic) Syncope (Acute) Angina pectoris (Acute) Mitral regurgitation (Acute) Heart murmur (Acute) Chronic back pain (Chronic) Syncope (Acute) Diastolic dysfunction (Chronic) HLD (hyperlipidemia) (Chronic) HHD (hypertensive heart disease) (Chronic) CAD (coronary artery disease) (Chronic) - VTE Risk Labs: VTE Related Lab Results Hgb 18.3 g/dL (14.1-18.0) H 05/18/21 11:00 Hct 52.1 % (42.0-52.0) H 05/18/21 11:00 Plt Count 318 K/mm3 (142-424) 05/18/21 11:00 BUN 16 mg/dl (9-20) 05/18/21 11:00 Creatinine 1.20 mg/dl (0.66-1.25) 05/18/21 11:00 Estimated Creat Clear 75 mL/min (50-200) 05/18/21 11:00 Was VTE Risk Assessment Performed: Yes VTE Score: 2 Clinical Trial Participant: No - Prophylaxis VTE Prophylaxis Ordered?: Yes Types of VTE Prophylaxis: TEDS Knee High, Pharmacological (XARELTO)
[2021-05-19 08:00] VITALS: PULSE 70
--- NOTE | 2021-05-19 08:00 | NM_ITS ---
APPROVED REPORT Exam: Nuclear Stress Test Indication: palpitations..syncope Patient Location: Inpatient Stress Tech: Siomara Núñez YUSEF Tech:Sultana VincentVINAY earl RT(R)(N) Ht: 5 ft 6 in Wt: 180 lbs HR: 79 bpm BP: 128/72 mmHg BSA: 1.91 m2 BMI: 29.0 History: palpitations..syncope Procedure: Patient received a 0.4 mg of intravenous Lexiscan, resting heart rate 79 bpm, resting blood pressure 128/72 mmHg, with Lexiscan maximum heart rate achived was 67 bpm which is 85 % of the maximum predicted heart rate and blood pressure was 100/61 mmHg. With Lexiscan, patient denied any complaint of chest pain. Cardiac Stress and Resting SPECT Images: Cardiac Stress and Resting SPECT images were obtained using technetium 99m Myoview 29.9 mCi stress and 9.94 mCi at rest. Ef is borderline at 50% with no wall motion abnormalities No fixed or reversible defects Conclusion: Borderline EF of 50% with no fixed or reversible defects Electronically signed by : Parish Monte MD 05/19/2021 11:37:43
--- NOTE | 2021-05-19 08:25 | HMH.PNCARD ---
Subjective Date: 05/19/21 Time: 08:00 Principal diagnosis: syncope, chest pain Interval history: This is a 61-year-old gentleman who presented to the emergency department after an episode of syncope. He was standing at the sink drinking milk when he had sudden onset of chest pain that radiated across his entire chest this was a sharp sensation. He then had about 2 or 3 seconds of dizziness and then he had his episode of syncope. He fell and hit his back on a stepladder. This syncopal episode was witnessed by his . Since his episode of syncope he denies any recurrence of chest pain or pressure. He denies any more episodes of dizziness or syncope. He denies any fever, chills, nausea, vomiting, diarrhea, PND or orthopnea. The patient reports this morning that he does not think his syncope was cardiac related. He did rule out for an NM and has been set up for a Myoview stress testing this morning. Exam Vital signs and Labs for Last 24 Hours: Temp Pulse Resp BP Pulse Ox 97.9 F 65 16 111/69 97 05/19/21 00:00 05/19/21 04:00 05/19/21 00:00 05/19/21 00:00 05/19/21 00:00 Laboratory Results - last 24 hr 05/18/21 11:00: WBC 13.4 H, RBC 5.47, Hgb 18.3 H, Hct 52.1 H, MCV 95.3 H, MCH 33.2 H, MCHC 34.8, RDW 14.6, Plt Count 318, MPV 8.5, Neut % (Auto) 67.5, Lymph % (Auto) 23.3, [place] % (Auto) 6.2, Eos % (Auto) 1.9, Baso % (Auto) 1.3, Neut # (Auto) 9.0 H, Lymph # (Auto) 3.1, [place] # (Auto) 0.8, Eos # (Auto) 0.3, Baso # (Auto) 0.2 05/18/21 11:00: Sodium 140, Potassium 4.1, Chloride 104, Carbon Dioxide 29, Anion Gap 11.1, BUN 16, Creatinine 1.20, Estimated Creat Clear 75, Estimated GFR 62, Est GFR ( Amer) 74, Glucose 106 H, Calcium 9.4, Troponin I < 0.01 05/18/21 13:48: Troponin I < 0.01 05/18/21 16:16: SARS-CoV-2 (PCR) Not detected, Influenza A Untype (PCR) Not detected, Influenza Type B (PCR) Not detected 05/18/21 17:30: Troponin I < 0.01 I & O for Last 24 hours: Intake & Output 05/16/21 05/17/21 05/18/21 05/19/21 23:59 23:59 23:59 23:59 Intake Total 240 / 240 Balance 240 / 240 Weight 180 lb 0.013 oz Narrative: Telemetry strip shows atrial fibrillation with rate control. - Constitutional no acute distress, average body habitus - *Routine HEENT Exam Head: Present: normocephalic, atraumatic Eye: Present: EOMI, PERRL ENT: Present: mucous membranes moist - *Routine Neck Exam Present: supple, full ROM, normal carotid upstroke. Absent: JVD, carotid bruit, lymphadenopathy - *Routine Respiratory Exam Present: CTA bilaterally - *Routine Cardiovascular Exam Present: RRR, Normal S1, Normal S2, murmur - *Routine Abdominal Exam Present: soft, normoactive bowel sounds. Absent: tenderness, distended - *Routine Extremities Exam Present: full ROM, pulses intact, normal capillary refill. Absent: cyanosis, clubbing, edema - *Routine Skin Exam Present: intact, warm. Absent: erythema, rash - *Routine Neurological Exam Present: alert, oriented X3, CN II-XII intact. Absent: sensory deficit, motor deficit Progress Note: A&P (1) Syncope Status: Acute (2) Angina pectoris Status: Acute (3) Mitral regurgitation Status: Acute (4) Heart murmur Status: Acute (5) Atrial fibrillation Status: Chronic (6) CAD (coronary artery disease) Status: Chronic (7) Diastolic dysfunction Status: Chronic (8) HHD (hypertensive heart disease) Status: Chronic (9) HLD (hyperlipidemia) Status: Chronic (10) Chronic back pain Status: Chronic Assessment and Plan for All Diagnoses:: Plan: 1. The pain department with syncope and angina. He did rule out for an NM. He has a history of coronary artery disease status post stenting in 2019. Given this history of coronary disease and his current symptoms, the patient will need an ischemic evaluation. He was originally set up for a GXT Myoview to rule out ischemia but this morning he states that he cannot walk on a treadmill due to
--- NOTE | 2021-05-19 10:30 | HMH.ACPN2 ---
Internal Medicine - PN: Subj *Date: 05/19/21 *Time: 13:28 Interval history: pt is currently having a stress test 1300 pt has had stress test and is patiently awaiting something to eat; denies further CP and SOB; did not sleep last night Exam Vital signs and Labs for Last 24 Hours: Temp Pulse Resp BP Pulse Ox 97.9 F 65 16 111/69 97 05/19/21 00:00 05/19/21 04:00 05/19/21 00:00 05/19/21 00:00 05/19/21 00:00 Laboratory Results - last 24 hr 05/18/21 11:00: WBC 13.4 H, RBC 5.47, Hgb 18.3 H, Hct 52.1 H, MCV 95.3 H, MCH 33.2 H, MCHC 34.8, RDW 14.6, Plt Count 318, MPV 8.5, Neut % (Auto) 67.5, Lymph % (Auto) 23.3, [place] % (Auto) 6.2, Eos % (Auto) 1.9, Baso % (Auto) 1.3, Neut # (Auto) 9.0 H, Lymph # (Auto) 3.1, [place] # (Auto) 0.8, Eos # (Auto) 0.3, Baso # (Auto) 0.2 05/18/21 11:00: Sodium 140, Potassium 4.1, Chloride 104, Carbon Dioxide 29, Anion Gap 11.1, BUN 16, Creatinine 1.20, Estimated Creat Clear 75, Estimated GFR 62, Est GFR ( Amer) 74, Glucose 106 H, Calcium 9.4, Troponin I < 0.01 05/18/21 13:48: Troponin I < 0.01 05/18/21 16:16: SARS-CoV-2 (PCR) Not detected, Influenza A Untype (PCR) Not detected, Influenza Type B (PCR) Not detected 05/18/21 17:30: Troponin I < 0.01 I & O for Last 24 hours: Intake & Output 05/16/21 05/17/21 05/18/21 05/19/21 11:59 11:59 11:59 11:59 Intake Total 240 / 240 Balance 240 / 240 Weight 180 lb 180 lb 0.013 oz - Constitutional no acute distress Comments: sitting in recliner at bedside; appears comfortable - *Routine Respiratory Exam Present: CTA bilaterally (A&P) - *Routine Cardiovascular Exam Present: irregular rhythm - *Routine Abdominal Exam Present: soft, normoactive bowel sounds. Absent: tenderness - *Routine Extremities Exam Absent: edema - *Routine Neurological Exam Present: alert, oriented X3 Assessment and Plan (1) Syncope Status: Acute Category: Medical Code(s): R55 - Syncope and collapse (2) Angina pectoris Status: Acute Category: Medical Code(s): I20.9 - Angina pectoris, unspecified (3) Mitral regurgitation Status: Acute Category: Medical Code(s): I34.0 - Nonrheumatic mitral (valve) insufficiency (4) Heart murmur Status: Acute Category: Medical Code(s): R01.1 - Cardiac murmur, unspecified (5) Atrial fibrillation Status: Chronic Qualifiers: Atrial fibrillation type: unspecified Qualified Code(s): I48.91 - Unspecified atrial fibrillation Category: Medical Code(s): I48.91 - Unspecified atrial fibrillation (6) CAD (coronary artery disease) Status: Chronic Qualifiers: Coronary Disease-Associated Artery/Lesion type: [place] artery [place] vs. transplanted heart: [place] heart Associated angina: with other forms of angina Qualified Code(s): I25.118 - Atherosclerotic heart disease of [place] coronary artery with other forms of angina pectoris Category: Medical Code(s): I25.10 - Atherosclerotic heart disease of [place] coronary artery without angina pectoris (7) Diastolic dysfunction Status: Chronic Category: Medical Code(s): I51.89 - Other ill-defined heart diseases (8) HHD (hypertensive heart disease) Status: Chronic Qualifiers: Heart failure presence: without heart failure Qualified Code(s): I11.9 - Hypertensive heart disease without heart failure Category: Medical Code(s): I11.9 - Hypertensive heart disease without heart failure (9) HLD (hyperlipidemia) Status: Chronic Qualifiers: Hyperlipidemia type: mixed hyperlipidemia Qualified Code(s): E78.2 - Mixed hyperlipidemia Category: Medical Code(s): E78.5 - Hyperlipidemia, unspecified (10) Chronic back pain Status: Chronic Category: Medical Code(s): M54.9 - Dorsalgia, unspecified; G89.29 - Other chronic pain - Assessment and plan all Dx Assessment and Plan for all problems:: cardiology to FU with plans after stress test; cardiac diet orderded
[2021-05-19 11:20] VITALS: BP 113/70; PULSE 83; RESP 19; TEMP 36.4; O2SAT 95
[2021-05-19 11:40] LABS: Basophils # 0.1 K/mm3 (0-0.2); Basophils % 0.5 % (0.1-2.0); Eosinophils # 0.1 K/mm3 (0.0-0.4); Eosinophils % 1.1 % (0.1-12.0); Hematocrit 49.8 % (42.0-52.0); Hemoglobin 17.4 g/dL (14.1-18.0); Lymphocytes # 1.5 K/mm3 (0.7-4.5); Lymphocytes % 12.4 % (10-50); Mean Corpuscular Hemoglobin 32.8 pg (27.0-31.2); Mean Corpuscular Volume 93.9 fl (80-94); Mean Platelet Volume 8.5 fl (7.4-10.4); Monocytes # 0.5 K/mm3 (0.1-1.0); Monocytes % 4.1 % (1.7-9.3); Neutrophils # 9.9 K/mm3 (1.8-7.8); Neutrophils % 81.9 % (37.0-80.0); Platelet Count 289 K/mm3 (142-424); Red Cell Distribution Width 14.7 % (11.5-17.5); White Blood Count 12.1 K/mm3 (4.8-10.8)
[2021-05-19 11:42] LABS: Chloride 103 mmol/L (98-107)
[2021-05-19 11:43] LABS: Sodium 138 mmol/L (136-145)
[2021-05-19 11:45] LABS: Alanine Aminotransferase 18 U/L (12-78); Aspartate Amino Transferase 35 U/L (17-59); Bilirubin,Unconjugated 1.7 mg/dL (0.0-1.1); Blood Urea Nitrogen 17 mg/dl (9-20); Creatinine Clearance Estimated 69 mL/min (50-200); Estimated Glomerular Filt Rate 56 ml/min (>60); GFR (African American) 68 ML/MIN (>60)
[2021-05-19 11:46] LABS: Albumin Level 4.1 g/dl (3.5-5.0); Alkaline Phosphatase 42 U/L (38-126); Bilirubin,Direct 0.1 mg/dl (0.0-0.4); Bilirubin,Indirect 1.6 mg/dL (0.0-0.9); Bilirubin,Total 1.7 mg/dl (0.2-1.3); Calcium 9.2 mg/dl (8.4-10.2); Carbon Dioxide 31 mmol/L (22.0-30.0); Chol/HDL Ratio 3.7 (1-3.5); Cholesterol 134 mg/dl (140-200); Glucose 123 mg/dl (74-100); HDL Cholesterol 36 mg/dl (40-60); Total Protein,Serum 6.5 g/dl (6.3-8.2); Triglycerides 81 mg/dl (30-150); VLDL Cholesterol 16 mg/dL (0-40)
--- NOTE | 2021-05-19 13:21 | HMH.PHAINT ---
HOME MEDICATION LIST VERIFIED USING LISTS FROM DR. EVERETT' OFFICE AND [facility]
[2021-05-19 13:25] VITALS: BMI 29.0
--- NOTE | 2021-05-19 14:12 | PC.NURSE ---
5655- notified by Karrie Santamaria that pt was seen walking past chemo/infusion on first floor with IV intact. This RN and Ewa Solis RN went outside to find pt. Pt was seen walking down the hill by [facility]. Pt did refuse to sign AMA form but agreed to wait with this RN to allow us to take his IV out. This RN and Ewa Solis RN both explained to pt the risks to leaving AMA, pt verbalized understanding but stated he wasn't signing any papers [id number]- Left a message w/ MD [facility] office. Bernard made aware.
--- NOTE | 2021-05-23 10:42 | HMH.DCSUM ---
General - General Admission date:: 05/18/21 Discharge date: 05/19/21 HPI HPI: History of present illness: This is a 61-year-old white gentleman who presented to the emergency department after an episode of syncope. The patient states that he passed out while standing at the kitchen sink drinking milk this morning. The patient states he hit his back on a stepladder when he went down. He states just before having his syncopal episode he did have some chest pain. He states that this was a sharp sensation in the center of his chest and then ran across his entire chest. It was associated with about 2 to 3 seconds of dizziness before he passed out. The patient states that he was only passed out for about 2 or 3 seconds and then he woke up. The syncope was witnessed by his . The patient states that he hit his mid to lower back when he passed out. He denies any chest pain or pressure since that time. He denies any more episodes of dizziness or syncope since that time. The patient does have a history of coronary artery disease status post stenting, atrial fibrillation on Xarelto, hypertension and hyperlipidemia. He continues to smoke. He denies any fever, chills, nausea, vomiting, diarrhea, PND or orthopnea. The above documentation as per cardiology. At the time of this exam patient is lying on a stretcher in the ER and appears comfortable. He is awaiting a bed on the medical floor after completing a Covid test. He denies any chest pain, shortness of breath, and nausea. He states his heart always flutters and runs around due to his chronic atrial fibrillation. He denies a headache, extremity weakness, changes in vision and mental status, or any respiratory symptoms. Laboratory data reveals troponin of 0.01 x 2, normal sodium and potassium and renal function. Chest x-ray showed no acute findings. CT of the chest with PE protocol revealed no evidence of pulmonary embolism, aortic aneurysm, or aortic dissection. Numerous bilateral pulmonary nodular opacities were noted. Diffuse coronary artery disease. Bilateral adrenal adenomas. CT of the head reveals no acute intracranial findings. CT of the abdomen and pelvis revealed no acute findings with bilateral adrenal enlargement consistent with adenomas. CT of the abdomen with contrast revealed the followin. Small focal fusiform dilatation of the abdominal aorta at 2.4 x 2.2 cm. No evidence of retroperitoneal hemorrhage. 2. Scattered atheromatous changes of the aortoiliac vessels. 3. Small nodular area of enhancement in the hepatic dome possibly due to a hemangioma. Follow-up may confirm stability. Results of the CT of the thoracic spine and echocardiogram are pending. Hospital Course Hospital Course: The patient was admitted and seen by cardiology. Due to angina prior to his syncopal episode, they felt the patient would need a stress test. They also ordered an echocardiogram. The patient's preliminary echo showed an EF of 50% with mild to moderate mitral regurgitation. The patient's stress test was normal with no fixed or reversible defects. Cardiology did recommend a 30-day event monitor due to syncopal episode prior to discharge, but the patient refused both this and a loop recorder. They felt he could be discharged and should follow-up with them in 1 to 2 weeks. Objective Vital signs: Temp Pulse Resp BP Pulse Ox 97.6 F 83 19 113/70 95 05/19/21 11:20 05/19/21 11:20 05/19/21 11:20 05/19/21 11:20 05/19/21 11:20 Narrative: - Constitutional no acute distress - *Routine HEENT Exam Head: Present: normocephalic, atraumatic Eye: Present: PERRL. Absent: conjunctival icterus, scleral injection ENT: Present: mucous membranes moist, oropharynx clear, nares patent. Absent: mucous membranes dry - *Routine Neck Exam Absent: carotid bruit, lymphadenopathy, thyromegaly - *Routine Respiratory Exam Present: CTA bilaterally Comments: A&P - *Rou
== END 2021-05-19 13:55 | disposition left against medical advice (07) ==
LOC: ER 10:46 → 2ND 16:06
PROVIDERS: Nurse Practitioner Family; Admitting Provider Family Medicine; Emergency Provider Student in an Organized Health Care Education/Training Program; PCP Internal Medicine; Visit Provider Family Medicine
DX: R55 Syncope and collapse (principal); Z20.822 Contact with and (suspected) exposure to COVID-19; I25.118 Atherosclerotic heart disease of native coronary artery with other forms of angina pectoris; I42.9 Cardiomyopathy, unspecified; I48.20 Chronic atrial fibrillation, unspecified; I34.0 Nonrheumatic mitral (valve) insufficiency; G89.29 Other chronic pain; M54.9 Dorsalgia, unspecified; E78.5 Hyperlipidemia, unspecified; Z71.6 Tobacco abuse counseling; F17.210 Nicotine dependence, cigarettes, uncomplicated
CPT/HCPCS: 36415; 70450; 71045; 71275; 72128; 74174; 74177; 78452; 80048; 80061; 80076; 84484; 85025; 93005; 93017; 93306; 96375; 99284; A9502; C9803; G0378; J2405; J2785; Q9967; U0003; U0005

== ENCOUNTER → 2021-06-23 15:15 | Outpatient (CLI) | payer BC, SELFPAY ==
--- NOTE | 2021-06-23 15:18 | XR_ITS ---
PROCEDURE: XR HIP RT 2-3V W/PELVIS CLINICAL INDICATION: RT HIP PAIN, SCIATICA RT SIDE COMPARISON: No exams were available for comparison FINDINGS: No fracture or dislocation. No lytic or blastic change. There is an os acetabulum as a normal variant. There are mild osteoarthritic changes of the right hip. AP view of the pelvis also shows mild osteoarthritis of left hip. There are degenerative changes in the lumbar spine. There is mild sclerosis of the sacral aspect of the right SI joint inferiorly IMPRESSION: Mild osteoarthritic changes of the hips, no acute finding. Dictated by: Parish Monte MD 06/23/2021 16:06 Parish Monte MD in OV 06/23/2021 16:06
== END ==
PROVIDERS: PCP Internal Medicine; Visit Provider Internal Medicine
DX: M25.551 Pain in right hip (principal); M54.31 Sciatica, right side
CPT/HCPCS: 73502

== ENCOUNTER → 2021-07-13 15:47 | Outpatient (CLI) | payer BC, SELFPAY ==
--- NOTE | 2021-07-13 15:53 | MR_ITS ---
FINAL REPORT CLINICAL HISTORY: LUMBAGO WITH RIGHT SCIATICA. hx back surgery in 1999. lbp with rt leg pain, numbness, and tingling. bilateral feet numbness. [id number]. no injury or trauma. pain worse when standing and walking long distances. FINDINGS: Multiplanar MR imaging of the lumbar spine was performed without contrast. 3D reconstructed images were submitted. On the sagittal T2-weighted images, disc degeneration is seen throughout. There is mild retrolisthesis of L1 on L2, L2 on L3, L3 on L4, and L5 on S1. There is mild chronic wedging of L1. There is mild endplate change at multiple levels. The conus has an unremarkable appearance. T11-T12: There is an annular bulge, facet arthropathy and vertebral osteophytes. T12-L1: There is an annular bulge, facet arthropathy and vertebral osteophytes. L1-2: There is an annular bulge, facet arthropathy and vertebral osteophytes. There is mild bilateral neural foraminal narrowing. L2-3: There is an annular bulge, facet arthropathy and vertebral osteophytes. There is a left foraminal disc protrusion. There is mild right and moderate left neural foraminal narrowing. L3-4: There is an annular bulge, facet arthropathy and vertebral osteophytes. There is moderate bilateral neural foraminal narrowing. L4-5: There is an annular bulge and facet arthropathy. There is moderate central canal stenosis with an AP thecal sac diameter of 5 mm. There is severe right and moderate left neural foraminal narrowing. L5-S1: There is an annular bulge, facet arthropathy and vertebral osteophytes. Postoperative changes seen on the left. There is moderate right and severe left neural foraminal narrowing. IMPRESSION: Multilevel degenerative disc disease with areas of neural foraminal narrowing and central canal stenosis as described. Postoperative change on the left at L5-S1. Left foraminal disc protrusion at L2-L3. Reviewed, Interpreted and Dictated by Alonso Real III, MD Transcribed by Ajith Coleman Authenticated by Alonso Real III, MD on 07/14/2021 07:55:06 AM [facility]
== END ==
PROVIDERS: PCP Internal Medicine; Visit Provider Internal Medicine
DX: M54.41 Lumbago with sciatica, right side (principal)
CPT/HCPCS: 72148; 76376

== ENCOUNTER → 2021-07-27 13:50 | Outpatient (POV) | payer BC, SELFPAY ==
--- NOTE | 2021-07-27 14:26 | HMH.PMCON ---
Assessment and Plan (1) Degenerative joint disease (DJD) of lumbar spine Status: Chronic Category: Medical Code(s): M47.816 - Spondylosis without myelopathy or radiculopathy, lumbar region (2) Lumbar radiculopathy Status: Chronic Category: Medical Code(s): M54.16 - Radiculopathy, lumbar region (3) Spinal stenosis Status: Chronic Category: Medical Code(s): M48.00 - Spinal stenosis, site unspecified (4) Neurogenic claudication Status: Chronic Category: Medical Code(s): G95.19 - Other vascular myelopathies - Assessment and plan all Dx Assessment and Plan for all problems:: Patient is having low back pain with radiation into bilateral lower extremities with heaviness and weakness bilateral lower extremities. He does feel better when leaning forward and lying in position. His pain is worse when he was coughing sneezing and walking downstairs. He does have an MRI that does show the patient to have bulging disc along with moderate stenosis to the L4-L5 area. We will schedule him for a lumbar epidural steroid injection L4-L5 with an epidurogram to see if he is a candidate for mild. We will plan to follow-up with him after the injection for further evaluation. We will order him tramadol 50 mg 1 tablet p.o. 3 times daily as needed pain until he is able to undergo the injection. Possible side effects of corticosteroids have been discussed with the patient. Risks and benefits of the procedure have been explained to the patient. Patient would like to proceed with the procedure. Patient has been instructed to contact the clinic with any concerns before the next appointment. Dr. Ni has reviewed this note and agrees with this plan of care. This note was dictated using voice recognition software and make contain errors or omissions. Risks and benefits of the medication have been explained in detail to the patient. The patient does understand the risk of dependence on the medication when given over a prolonged period. Patient has been advised of risks of oversedation with the prescribed medication. Narcan has been offered to the paitent in the event of oversedation. Patient has been advised that a family member should also be educated regarding administration of Narcan. The patient has been advised to consult with his/her primary care provider and pharmacist regarding drug-drug interaction of medications currently prescribed. Patient has been prescribed a controlled substance after being counseled on the medication, medication safety, and possible side effects. RAMIREZ report has been obtained and reviewed prior to prescription and found to be appropriate. Opioid contract was reviewed and signed by the patient, and that they have agreed to all of the terms set forth by our compliance program. Patient has been instructed to contact the clinic with any concerns before the next appointment. Dr. Ni has reviewed this note and agrees with this plan of care. This note was dictated using voice recognition software and make contain errors or omissions. HPI - Data of Consult Patient: new to practice Consult date: 07/27/21 Requesting Physician: Jolynn Loomis APRN - Consult Narrative Reason for consult: Low back pain History of present illness: Mr. Brock is a 61 year old male who presents today for consultation for low back pain. The patient says he has had worsening low back pain for approximately 2 months. The pain began as stiffness and muscle spasms and has now progressed to significant aching and sharp pain that is in his low back area with radiation into buttock, right leg and feet. He says the pain has now also started to radiate into the left leg. He has numbness in his feet and behind his ankles. He does have occasional bilateral buttock pain. The pain is made worse with standing or walking, as well as with coughing and sneezing. The pain is at its worst when he coughs sneezes and when going do
[2021-07-27 14:33] VITALS: BP 163/91; PULSE 70; RESP 18; O2SAT 97; BMI 29.8
== END ==
PROVIDERS: Visit Provider Clinical Nurse Specialist Family Health
DX: M47.896 Other spondylosis, lumbar region (principal); M54.16 Radiculopathy, lumbar region; M48.00 Spinal stenosis, site unspecified; G95.19 Other vascular myelopathies
CPT/HCPCS: 99202; G0463

== ENCOUNTER 2021-08-14 08:21 | Day surgery (SDC) | payer BC, SELFPAY ==
[2021-08-14 08:39] VITALS: BP 168/110; PULSE 74; RESP 20; TEMP 36.6; O2SAT 96; BMI 32.3
[2021-08-14 08:49] VITALS: BP 159/98; PULSE 120; RESP 20; O2SAT 97
[2021-08-14 08:51] VITALS: BP 158/94; PULSE 100; RESP 18; O2SAT 97
[2021-08-14 09:09] VITALS: BP 166/110; PULSE 95; RESP 20; O2SAT 96
--- NOTE | 2021-08-14 09:10 | PC.NURSE ---
0845-pt reports that he has not taken his blood pressure medications yet this am. instructed patient to take medication as soon as he gets home. understanding. verbalized.
--- NOTE | 2021-08-14 09:16 | P.PCN_ITS ---
- Procedure Date: 08/14/21 Time: 09:16 Anesthesiologist:: Bala Ni MD Complications:: None Pre-procedure Diagnosis:: Degenerative disc disease of lumbar spine with lumbar radiculopathy symptoms and lumbar spinal stenosis with neurogenic claudication symptoms Post-procedure Diagnosis:: Same Indications for Procedure:: Patient is a pleasant 61-year-old white male who we are treating for low back pain with lumbar radiculopathy symptoms and lumbar spinal stenosis with neurogenic claudication. He has increasing pain while walking and standing. He does have severe degenerative changes with lumbar spinal stenosis evident on MRI. We will do a lumbar epidural steroid injection with epidurogram today to assess levels of stenosis and candidacy for minimally invasive lumbar decompres onur. Procedure Details:: Informed consent was obtained and the risk and benefits of the procedure was explained to the patient. The patient was taken to the procedure room. The patient was placed prone on the procedure table. The patient was prepped and draped in sterile fashion. C-arm fluoroscopy was used to view the lumbar spine. Skin and subcutaneous tissues were anesthetized using lidocaine. I placed an 18-gauge epidural needle and advanced into the L4-L5 interspace using fluoroscopic guidance and [id number] to air. After confirmation of needle placement in the epidural space with dye I injected 2 mL of lidocaine 1.5% with Depo-Medrol 80 mg. Patient tolerated the procedure well with no complications. Plan and Disposition:: Based on epidurogram there is severe stenosis at L4-L5. There does not seem to be much stenosis at L3-L4. I do believe this patient is a candidate for minimally invasive lumbar decompression at bilateral L4-L5. We will schedule this in the OR soon as possible.
== END 2021-08-14 09:10 | disposition home or self-care (01) ==
LOC: SC.PAINP 08:23
PROVIDERS: PCP Internal Medicine; Visit Provider Anesthesiology
DX: M51.16 Intervertebral disc disorders with radiculopathy, lumbar region (principal); M48.062 Spinal stenosis, lumbar region with neurogenic claudication; I25.10 Atherosclerotic heart disease of native coronary artery without angina pectoris; Z95.5 Presence of coronary angioplasty implant and graft; E78.5 Hyperlipidemia, unspecified; I48.91 Unspecified atrial fibrillation; I10 Essential (primary) hypertension; I50.9 Heart failure, unspecified; Z72.0 Tobacco use
CPT/HCPCS: 62323; J1040; Q9966

== ENCOUNTER → 2021-08-28 15:28 | Outpatient (CLI) | payer BC, SELFPAY | PROVIDERS: PCP Internal Medicine; Visit Provider Anesthesiology | DX: Z01.812 Encounter for preprocedural laboratory examination (principal); Z11.52 Encounter for screening for COVID-19 | CPT/HCPCS: C9803; U0003; U0005 ==

== ENCOUNTER 2021-08-31 09:28 | Day surgery (SDC) | payer BC, SELFPAY ==
[2021-08-27 11:55] VITALS: BMI 30.7
[2021-08-31 10:19] VITALS: BP 142/94; PULSE 93; RESP 18; TEMP 36.2; O2SAT 96
--- NOTE | 2021-08-31 10:25 | P.PN_ITS ---
[facility] Anesthesia Checklist - Patient Identification Patient Identification: Arm Band - Structural Data Admitted From: Home Planned Operative Procedure/s: Lumbar decompression Consent for Planned Operative Procedure(s) Verified: Yes - NPO Status Verified Time NPO: 00:00 - Airway Assessment C-Spine Mobility Assessed: Yes TMJ Mobility Assessed: Yes Dentition: Edentulous - Neurological Assessment Level of Consciousness: Awake Hx Seizures: No Numbness or tingling in extremities: No - Anesthesia Plan Anesthesia Risk discussed: Yes Anesthesia Plan: Verified ASA Class: III Anesthesia Type: MAC [facility] History I have reviewed the patient's past medical history: Yes Medical History: Reports:: Arrhythmia, Atrial Fibrillation, Cardiomyopathy, Congestive Heart Failure, Coronary Artery Disease, Heart Murmur, Hyperlipidemia, Hypertension Denies:: Cancer, Diabetes Mellitus Type 1, Diabetes Mellitus Type 2, Internal Pacemaker, MRSA, Seizures *Have you ever received a pneumonia vaccine?: No *Have you received a flu vaccine this season?: No Other Medical History: Reports: Arthritis Anesthesia experience/problems:: None Laterality Cases: Left: Arthroscopy Knee, Other, Bilateral: Tonsillectomy, Total Hip Replacement Other Surgeries: Yes: No Previous Surgery, Cardiac Catheterization, Coronary Stent. No: Pacemaker Amputation: No Fractures: No - *Social History Last grade of school completed: High school graduate Smoking Status: Current every day smoker Tobacco Type: cigarettes # Packs/Day (cigarettes): 1 Alcohol Intake: never Substance Use Type: denies use *Occupational Status:: employed Housing: house Household Members: spouse *Travel in the last 8 weeks: None Family Hx:: Other
[2021-08-31 10:32] LABS: Basophils # 0.1 K/mm3 (0-0.2); Basophils % 1.2 % (0.1-2.0); Eosinophils # 0.3 K/mm3 (0.0-0.4); Eosinophils % 2.4 % (0.1-12.0); Hematocrit 54.7 % (42.0-52.0); Lymphocytes # 2.1 K/mm3 (0.7-4.5); Mean Corpuscular HGB Conc 33.3 g/dL (31.8-35.4); Mean Corpuscular Hemoglobin 33.3 pg (27.0-31.2); Mean Platelet Volume 8.4 fl (7.4-10.4); Monocytes # 0.6 K/mm3 (0.1-1.0); Monocytes % 5.1 % (1.7-9.3); Neutrophils % 74.3 % (37.0-80.0); Platelet Count 303 K/mm3 (142-424); Red Blood Count 5.47 M/mm3 (4.60-6.20); Red Cell Distribution Width 13.8 % (11.5-17.5); White Blood Count 12.1 K/mm3 (4.8-10.8)
[2021-08-31 10:39] LABS: Chloride 107 mmol/L (98-107); Sodium 135 mmol/L (136-145)
[2021-08-31 10:40] LABS: Potassium 4.5 mmoL/L (3.5-5.1)
[2021-08-31 10:42] LABS: Blood Urea Nitrogen 18 mg/dl (9-20); Creatinine Clearance Estimated 95 mL/min (50-200); Estimated Glomerular Filt Rate 86 ml/min (>60); GFR (African American) 104 ML/MIN (>60)
[2021-08-31 10:43] LABS: Anion Gap 10.5 mEq/L (5-15); Calcium 8.2 mg/dl (8.4-10.2); Carbon Dioxide 22 mmol/L (22.0-30.0); Glucose 97 mg/dl (74-100)
[2021-08-31 11:30] LABS: Hemoglobin 18.2 g/dL (14.1-18.0)
[2021-08-31 11:39] VITALS: BP 144/92; PULSE 102; RESP 16; TEMP 36.3; O2SAT 92
--- NOTE | 2021-08-31 11:45 | HMH.OPNOTE ---
Date of procedure: 08/31/21 Pre-op Diagnosis:: Degenerative disc disease of lumbar spine with lumbar radiculopathy symptoms and lumbar spinal stenosis with neurogenic claudication symptoms Post-op Diagnosis:: Same Procedure performed:: Minimally invasive lumbar decompression bilateral L3-L4 and L4-L5 under fluoroscopy Surgeon:: Bala Ni MD ENVIRONMENTAL JOURNALIST:: Ligia New Anesthesia: MAC Estimated blood loss (mL): 1 Clinical Note:: This patient is a pleasant 61-year-old white male who we have been treating for low back pain with lumbar radiculopathy symptoms and lumbar spinal stenosis with neurogenic claudication symptoms. He has increasing pain while walking and standing. He does have severe degenerative changes with lumbar spinal stenosis evident on MRI and epidurogram. His worst stenosis is at L4-L5. We will plan on minimally invasive lumbar decompression bilateral L4-L5 we will also look at L3-L4 as well. Operative findings:: Lumbar spinal stenosis at L3-L4 and L4-L5 bilateral Operative note:: Informed consent was obtained and the risk and benefits of the procedure was explained to the patient. The patient was taken to the operating room and placed prone on the procedure table. The patient was prepped and draped in sterile fashion. C-arm fluoroscopy was used to view the lumbar spine. The skin and subcutaneous tissues were anesthetized using lidocaine. A epidural needle was inserted and advanced into the L3-L4 interspace. After confirmation of needle placement in the epidural space, dye was injected in a contralateral oblique view. There was an epidurogram seen at L3-L4 and L4-L5. Significant stenosis was seen at L3-L4 and L4-L5. There is it was decided to do L3-L4 decompression as well as L4-L5. The skin and subcutaneous tissues again were anesthetized using lidocaine. An incision was made and a access trocar was inserted and advanced to contact at the superior aspect of the L4 lamina on the left side. And a contralateral oblique view the side was viewed. Using a bone rongeur and tissue sculptor we debulked bone from the L3-L4 and L4-L5 interspace on the left side. We then used the tissue sculptor to debulk ligament at the L3-L4 and L4-L5 interspace on the left side. We then moved over to the right side and debulked bone and ligament from L3-L4 and L4-L5 on the right side. There is opening of the stenosis at L3-L4 and L4-L5 bilaterally. The access trocar was removed. A total of 3 mL's of dye was used. There is good spread of dye above and below this level as well. We injected 80 mg Depo-Medrol through the epidural needle. The epidural needle was removed and dressings were placed. This encounter for exam is for normal comparison and control in a clinical research program Patient was taken to recovery in stable condition. Patient was discharged home neurologically intact and with good relief of pain symptoms. Plan and disposition: We will follow-up with this patient in 2 weeks. Will reevaluate symptoms at that time. Condition: stable Disposition: PACU Complications:: None
[2021-08-31 11:54] VITALS: BP 105/69; PULSE 77; RESP 16; O2SAT 94
[2021-08-31 12:09] VITALS: BP 101/70; PULSE 91; RESP 18; O2SAT 94
[2021-08-31 12:24] VITALS: BP 116/80; PULSE 98; RESP 18; O2SAT 94
[2021-08-31 12:48] VITALS: BP 108/72; PULSE 95; RESP 18; O2SAT 95
== END 2021-08-31 12:48 | disposition home or self-care (01) ==
LOC: OR 09:28
PROVIDERS: PCP Internal Medicine; Visit Provider Anesthesiology
PROC: (CPT 0275T; principal; 2021-08-31 11:00)
DX: M48.062 Spinal stenosis, lumbar region with neurogenic claudication (principal); M51.16 Intervertebral disc disorders with radiculopathy, lumbar region; Z00.6 Encounter for examination for normal comparison and control in clinical research program; I48.91 Unspecified atrial fibrillation; I25.10 Atherosclerotic heart disease of native coronary artery without angina pectoris; E78.5 Hyperlipidemia, unspecified; I11.0 Hypertensive heart disease with heart failure; I50.9 Heart failure, unspecified; I49.9 Cardiac arrhythmia, unspecified; I42.9 Cardiomyopathy, unspecified; R01.1 Cardiac murmur, unspecified; M19.90 Unspecified osteoarthritis, unspecified site; Z72.0 Tobacco use
CPT/HCPCS: 0275T; 80048; 85025; 96374; C1889; J1040

== ENCOUNTER → 2021-09-17 13:05 | Outpatient (POV) | payer BC, SELFPAY ==
[2021-09-17 13:27] VITALS: BP 177/98; PULSE 107; RESP 20; TEMP 36.6; O2SAT 96; BMI 30.7
--- NOTE | 2021-09-17 14:54 | HMH.PAINSOAP ---
[facility] Pain Management SOAP Note Subjective:: Patient is a pleasant 61-year-old male who is here for a follow up after minimally invasive lumbar decompression at L3-L4, L4-L5 bilaterally on August 31, 2021. Patient is currently being treated for degenerative disc disease of the lumbar spine with lumbar radiculopathy symptoms, lumbar spinal stenosis with neurogenic claudication. After the procedure, patients reports minimal relief relief and rates pain today at 8 out of 10. Patient denies any issues after the procedure. Patient continues to have low back pain that radiates to bilateral lower extremities. Patient denies any loss of bowel or bladder functions. Patient states that he did see some relief around his right foot. He does state that he has been having some worsening low back pain since her procedure. Additionally, patient is having a lot of of muscular pain around his neck and right shoulder. This pain has been going on for couple weeks now. Not taking any other medication right now for pain. [facility] number [phone] with an active morphine equivalent 0. Drug screens have been reviewed and appropriate. Review of Systems: General: No recent weight changes, no fever, no sleep disturbances Respiratory: No cough, no shortness of air, no recurring pulmonary infections Cardiovascular/peripheral vascular: No chest pain, no palpitations, no edema, no shortness of breath Gastrointestinal: No new onset incontinence, normal bowel movements reported Genitourinary: No new onset incontinence Musculoskeletal: Neck pain, shoulder pain, low back pain Psychiatric: [Normal mood/affect] Neurological: [Denies weakness in extremities], [denies balance issues] Objective:: General: Alert and oriented x3, no acute distress, pleasant and cooperative, [on room air] Lungs: Respirations even and unlabored, symmetrical chest expansion Eyes: PERRL Musculoskeletal: Flexion and extension of lumbar [spine] somewhat guarded secondary to pain; right cervical paraspinous, right shoulder and right rhomboids are tender to palpation. Neurological: Speech clear, no gross sensory deficit Assessment:: Degenerative disc disease of lumbar spine with lumbar radiculopathy symptoms Lumbar spinal stenosis with neurogenic claudication Myofascial pain at right cervical paraspinous, right shoulder, right rhomboid Plan:: Patient had minimal relief after the minimally invasive lumbar decompression procedure on August 31, 2021. Patient states that he continuously to have low back pain that radiates to bilateral lower extremities. This is better whenever he leans forward and worse when he leans backwards. Loss of bowel bladder functions. We will refer the patient to neurosurgery for further evaluation. I will also start the patient on gabapentin 100 mg at bedtime. I will schedule the patient for a right trigger point injections at his right cervical paraspinous, right shoulder, and right rhomboid. Risks and benefits of the procedure have been explained to the patient. Patient would like to proceed with the procedure. Patient has been instructed to contact the clinic with any concerns before the next appointment. Dr. Ni has reviewed this note and agrees with this plan of care. This note was dictated using voice recognition software and make contain errors or omissions. [facility] History Medical History: Reports:: Arrhythmia, Atrial Fibrillation, Cardiomyopathy, Congestive Heart Failure, Coronary Artery Disease, Heart Murmur, Hyperlipidemia, Hypertension Denies:: Cancer, Diabetes Mellitus Type 1, Diabetes Mellitus Type 2, Internal Pacemaker, MRSA, Seizures *Have you ever received a pneumonia vaccine?: No *Have you received a flu vaccine this season?: No Other Medical History: Reports: Arthritis. Denies: Blood Transfusion Reaction Laterality Cases: Left: Arthroscopy Knee, Other, Bilateral: Tonsillectomy, Total Hip Replacement Other Surgeries: Yes: No Previous Surgery, Cardiac Catheter
== END ==
PROVIDERS: Visit Provider Student in an Organized Health Care Education/Training Program
DX: M51.16 Intervertebral disc disorders with radiculopathy, lumbar region (principal); M48.062 Spinal stenosis, lumbar region with neurogenic claudication; M79.12 Myalgia of auxiliary muscles, head and neck; M79.18 Myalgia, other site
CPT/HCPCS: 99212; G0463

== ENCOUNTER → 2021-11-02 13:29 | Outpatient (CLI) | payer BC, SELFPAY ==
[2021-11-02 14:05] LABS: Basophils # 0.1 K/mm3 (0-0.2); Basophils % 1.2 % (0.1-2.0); Eosinophils # 0.3 K/mm3 (0.0-0.4); Eosinophils % 3.4 % (0.1-12.0); Hematocrit 50.6 % (42.0-52.0); Hemoglobin 16.7 g/dL (14.1-18.0); Lymphocytes # 2.4 K/mm3 (0.7-4.5); Mean Corpuscular HGB Conc 32.9 g/dL (31.8-35.4); Mean Corpuscular Hemoglobin 33.1 pg (27.0-31.2); Mean Corpuscular Volume 100.4 fl (80-94); Mean Platelet Volume 9.1 fl (7.4-10.4); Monocytes # 0.5 K/mm3 (0.1-1.0); Monocytes % 5.1 % (1.7-9.3); Neutrophils # 5.9 K/mm3 (1.8-7.8); Neutrophils % 64.3 % (37.0-80.0); Platelet Count 312 K/mm3 (142-424); Red Blood Count 5.04 M/mm3 (4.60-6.20); Red Cell Distribution Width 14.7 % (11.5-17.5); White Blood Count 9.1 K/mm3 (4.8-10.8)
--- NOTE | 2021-11-02 14:57 | CT_ITS ---
FINAL REPORT CLINICAL HISTORY: Low back pain COMPARISON: MRI dated July 13, 2021 FINDINGS: Axial imaging of the lumbar spine was obtained without contrast. Sagittal and coronal reformatted images were also obtained and reviewed.This study was performed with techniques to keep radiation doses as low as reasonably achievable (ALARA). Individualized dose reduction techniques using automated exposure control or adjustment of mA and/or kV according to the patient's size were employed. There is no fracture. There is mild retrolisthesis of L2 on L3 and L3 on L4. There is mild rightward curvature. There is vacuum disc phenomenon at multiple levels. Note is made of low-attenuation bilateral adrenal nodules which likely represent adenomas. L1-2: There is an annular disc bulge with facet arthropathy and vertebral osteophytes. There is mild left neural foraminal narrowing. L2-3: There is an annular disc bulge with facet arthropathy and vertebral osteophytes. There is mild right and moderate left neural foraminal narrowing. L3-4: There is an annular disc bulge with facet arthropathy and vertebral osteophytes. There is moderate bilateral neural foraminal narrowing. There is mild central canal stenosis with an AP diameter of the thecal sac of 8 mm. L4-5: There is an annular disc bulge with facet arthropathy. There is moderate bilateral neural foraminal narrowing. There is mild central canal stenosis with an AP diameter of the thecal sac of 7 mm. L5-S1: There is an annular disc bulge with facet arthropathy and vertebral osteophytes. There is severe bilateral neural foraminal narrowing. There is mild spurring of the SI joints. IMPRESSION: Multilevel degenerative change without acute bony abnormality. Mild central canal stenosis at L3-4 and L4-5 Reviewed, Interpreted and Dictated by Alonso Real III, MD Transcribed by Pretty Medellin Authenticated by Alonso Real III, MD on 11/02/2021 04:37:22 PM [facility]
[2021-11-02 15:11] LABS: Alanine Aminotransferase 21 U/L (12-78); Albumin Level 3.6 g/dl (3.5-5.0); Albumin/Globulin Ratio 1.7 (1.1-1.8); Alkaline Phosphatase 30 U/L (38-126); Anion Gap 10.9 mEq/L (5-15); Aspartate Amino Transferase 23 U/L (17-59); Bilirubin,Total 0.8 mg/dl (0.2-1.3); Blood Urea Nitrogen 26 mg/dl (9-20); Calcium 9.1 mg/dl (8.4-10.2); Carbon Dioxide 28 mmol/L (22.0-30.0); Chloride 105 mmol/L (98-107); Chol/HDL Ratio 3.9 (1-3.5); Cholesterol 158 mg/dl (140-200); Estimated Glomerular Filt Rate 56 ml/min (>60); GFR (African American) 68 ML/MIN (>60); Globulin 2.1 g/dL (1.3-3.2); Glucose 82 mg/dl (74-100); HDL Cholesterol 41 mg/dl (40-60); Potassium 3.9 mmoL/L (3.5-5.1); Sodium 140 mmol/L (136-145); Total Protein,Serum 5.7 g/dl (6.3-8.2); Triglycerides 136 mg/dl (30-150); VLDL Cholesterol 27 mg/dL (0-40)
[2021-11-02 15:22] LABS: Direct LDL Cholesterol 95.58 mg/dL (100-129)
== END ==
PROVIDERS: PCP Internal Medicine; Visit Provider Clinical Nurse Specialist Family Health
DX: M54.50 Low back pain, unspecified (principal); I48.0 Paroxysmal atrial fibrillation; I50.22 Chronic systolic (congestive) heart failure; I25.10 Atherosclerotic heart disease of native coronary artery without angina pectoris; I11.0 Hypertensive heart disease with heart failure
CPT/HCPCS: 72131; 80053; 80061; 85025

== ENCOUNTER → 2021-12-07 15:29 | Outpatient (CLI) | payer BC, SELFPAY | PROVIDERS: PCP Internal Medicine; Visit Provider Clinical Nurse Specialist Family Health | DX: Z01.812 Encounter for preprocedural laboratory examination (principal); Z20.822 Contact with and (suspected) exposure to COVID-19 | CPT/HCPCS: C9803; U0003; U0005 ==

== ENCOUNTER → 2022-06-23 11:38 | Outpatient (CLI) | payer BC, SELFPAY ==
[2022-06-23 12:40] LABS: Basophils # 0.1 K/mm3 (0-0.2); Basophils % 0.5 % (0.1-2.0); Eosinophils # 0.1 K/mm3 (0.0-0.4); Eosinophils % 1.2 % (0.1-12.0); Hematocrit 53.4 % (42.0-52.0); Hemoglobin 17.8 g/dL (14.1-18.0); Lymphocytes # 1.7 K/mm3 (0.7-4.5); Lymphocytes % 15.7 % (10-50); Mean Corpuscular HGB Conc 33.3 g/dL (31.8-35.4); Mean Corpuscular Hemoglobin 30.8 pg (27.0-31.2); Mean Corpuscular Volume 92.5 fl (80-94); Mean Platelet Volume 9.6 fl (7.4-10.4); Monocytes # 0.4 K/mm3 (0.1-1.0); Neutrophils # 8.3 K/mm3 (1.8-7.8); Neutrophils % 78.7 % (37.0-80.0); Platelet Count 387 K/mm3 (142-424); Red Blood Count 5.78 M/mm3 (4.60-6.20); Red Cell Distribution Width 15.3 % (11.5-17.5); White Blood Count 10.6 K/mm3 (4.8-10.8)
[2022-06-23 13:14] LABS: Alanine Aminotransferase 31 U/L (12-78); Albumin Level 4.2 g/dl (3.5-5.0); Albumin/Globulin Ratio 1.6 (1.1-1.8); Alkaline Phosphatase 54 U/L (38-126); Aspartate Amino Transferase 26 U/L (17-59); Bilirubin,Total 1.5 mg/dl (0.2-1.3); Blood Urea Nitrogen 26 mg/dl (9-20); Carbon Dioxide 24 mmol/L (22.0-30.0); Chloride 107 mmol/L (98-107); Estimated Glomerular Filt Rate 47 ml/min (>60); GFR (African American) 57 ML/MIN (>60); Globulin 2.6 g/dL (1.3-3.2); Glucose 172 mg/dl (74-100); HDL Cholesterol 37 mg/dl (40-60); Sodium 141 mmol/L (136-145); Total Protein,Serum 6.8 g/dl (6.3-8.2)
[2022-06-23 13:16] LABS: Erythrocyte Sedimentation Rate 10 mm/hr (0-20)
[2022-06-23 13:45] LABS: Thyroid Stimulating Hormone 2.22 uIU/mL (0.465-4.68)
[2022-06-23 14:00] LABS: Chol/HDL Ratio 4.9 (1-3.5); Cholesterol 181 mg/dl (140-200); Triglycerides 105 mg/dl (30-150); VLDL Cholesterol 21 mg/dL (0-40)
[2022-06-23 14:02] LABS: Hemoglobin A1C 5.7 % (4.0-6.0)
[2022-06-23 14:04] LABS: Vitamin B12 851 pg/mL (239-931)
== END ==
PROVIDERS: PCP Internal Medicine; Visit Provider Internal Medicine
DX: I25.10 Atherosclerotic heart disease of native coronary artery without angina pectoris (principal); I48.0 Paroxysmal atrial fibrillation; I10 Essential (primary) hypertension; E78.5 Hyperlipidemia, unspecified; G60.9 Hereditary and idiopathic neuropathy, unspecified
CPT/HCPCS: 80053; 80061; 82607; 83036; 84443; 85025; 85651

== ENCOUNTER → 2023-03-16 10:45 | Outpatient (CLI) | payer OTHER, SELFPAY ==
[2023-03-16 11:05] LABS: Basophils # 0.1 K/mm3 (0-0.2); Eosinophils # 0.2 K/mm3 (0.0-0.4); Lymphocytes # 1.6 K/mm3 (0.7-4.5); Lymphocytes % 16.9 % (10-50); Monocytes # 0.8 K/mm3 (0.1-1.0); White Blood Count 9.5 K/mm3 (4.8-10.8)
[2023-03-16 11:16] LABS: Basophils % 0.5 % (0.1-2.0); Eosinophils % 2.4 % (0.1-12.0); Hematocrit 56.7 % (42.0-52.0); Mean Corpuscular HGB Conc 32.5 g/dL (31.8-35.4); Mean Corpuscular Hemoglobin 31.9 pg (27.0-31.2); Mean Platelet Volume 8.4 fl (7.4-10.4); Neutrophils # 6.9 K/mm3 (1.8-7.8); Neutrophils % 72.2 % (37.0-80.0); Platelet Count 282 K/mm3 (142-424); Red Blood Count 5.79 M/mm3 (4.60-6.20)
[2023-03-16 11:17] LABS: Hemoglobin 18.4 g/dL (14.1-18.0)
[2023-03-16 11:32] LABS: Alanine Aminotransferase 20 U/L (12-78); Albumin Level 4.2 g/dl (3.5-5.0); Albumin/Globulin Ratio 1.6 (1.1-1.8); Alkaline Phosphatase 50 U/L (38-126); Anion Gap 14.6 mEq/L (5-15); Aspartate Amino Transferase 24 U/L (17-59); Bilirubin,Total 1.6 mg/dl (0.2-1.3); Blood Urea Nitrogen 25 mg/dl (9-20); Calcium 9.4 mg/dl (8.4-10.2); Carbon Dioxide 28 mmol/L (22.0-30.0); Chloride 103 mmol/L (98-107); Cholesterol 133 mg/dl (140-200); Estimated Glomerular Filt Rate 51 ml/min (>60); GFR (African American) 62 ML/MIN (>60); Globulin 2.7 g/dL (1.3-3.2); Glucose 78 mg/dl (74-100); HDL Cholesterol 44 mg/dl (40-60); Potassium 4.6 mmoL/L (3.5-5.1); Sodium 141 mmol/L (136-145); Total Protein,Serum 6.9 g/dl (6.3-8.2); Triglycerides 102 mg/dl (30-150); VLDL Cholesterol 20 mg/dL (0-40)
[2023-03-16 11:43] LABS: Direct LDL Cholesterol 78.99 mg/dL (100-129)
[2023-06-16 15:34] LABS: Prostate Specific Ag Screen 0.8 ng/ml (0.0-4.0)
== END ==
PROVIDERS: PCP Internal Medicine; Visit Provider Internal Medicine
DX: I50.22 Chronic systolic (congestive) heart failure (principal); I25.10 Atherosclerotic heart disease of native coronary artery without angina pectoris; I10 Essential (primary) hypertension; E78.5 Hyperlipidemia, unspecified; N18.30 Chronic kidney disease, stage 3 unspecified; I48.91 Unspecified atrial fibrillation
CPT/HCPCS: 80053; 80061; 85025; 85651; G0103

== ENCOUNTER → 2023-06-15 12:50 | Outpatient (CLI) | payer OTHER, SELFPAY ==
[2023-06-15 13:53] LABS: Chloride 106 mmol/L (98-107); Potassium 4.7 mmoL/L (3.5-5.1); Sodium 140 mmol/L (136-145)
[2023-06-15 13:55] LABS: Alanine Aminotransferase 24 U/L (12-78); Alkaline Phosphatase 38 U/L (38-126); Aspartate Amino Transferase 26 U/L (17-59); Bilirubin,Total 1.1 mg/dl (0.2-1.3); Blood Urea Nitrogen 23 mg/dl (9-20); Estimated Glomerular Filt Rate 61 ml/min (>60); GFR (African American) 74 ML/MIN (>60)
[2023-06-15 13:56] LABS: Albumin Level 4.3 g/dl (3.5-5.0); Albumin/Globulin Ratio 1.7 (1.1-1.8); Anion Gap 11.7 mEq/L (5-15); Calcium 9.3 mg/dl (8.4-10.2); Carbon Dioxide 27 mmol/L (22.0-30.0); Chol/HDL Ratio 4.9 (1-3.5); Cholesterol 190 mg/dl (140-200); Globulin 2.5 g/dL (1.3-3.2); Glucose 107 mg/dl (74-100); HDL Cholesterol 39 mg/dl (40-60); Total Protein,Serum 6.8 g/dl (6.3-8.2); Triglycerides 139 mg/dl (30-150); VLDL Cholesterol 28 mg/dL (0-40)
[2023-06-15 14:07] LABS: Direct LDL Cholesterol 125.39 mg/dL (100-129)
[2023-06-15 14:59] LABS: Prostate Specific Ag Screen 0.8 ng/ml (0.0-4.0)
== END ==
PROVIDERS: PCP Internal Medicine; Visit Provider Internal Medicine
DX: I50.22 Chronic systolic (congestive) heart failure (principal); I25.10 Atherosclerotic heart disease of native coronary artery without angina pectoris; I11.0 Hypertensive heart disease with heart failure; E78.5 Hyperlipidemia, unspecified; N18.30 Chronic kidney disease, stage 3 unspecified; G60.9 Hereditary and idiopathic neuropathy, unspecified; Z72.0 Tobacco use
CPT/HCPCS: 80053; 80061; G0103

== ENCOUNTER → 2023-06-22 13:47 | Outpatient (CLI) | payer OTHER, SELFPAY ==
[2023-06-22 14:26] LABS: Basophils # 0.1 K/mm3 (0-0.2); Basophils % 0.5 % (0.1-2.0); Eosinophils # 0.2 K/mm3 (0.0-0.4); Eosinophils % 1.9 % (0.1-12.0); Hematocrit 54.5 % (42.0-52.0); Lymphocytes # 2.4 K/mm3 (0.7-4.5); Lymphocytes % 20.7 % (10-50); Mean Corpuscular HGB Conc 34.2 g/dL (31.8-35.4); Mean Corpuscular Hemoglobin 33.5 pg (27.0-31.2); Mean Corpuscular Volume 97.9 fl (80-94); Mean Platelet Volume 9.6 fl (7.4-10.4); Monocytes # 0.8 K/mm3 (0.1-1.0); Neutrophils # 8.1 K/mm3 (1.8-7.8); Neutrophils % 69.9 % (37.0-80.0); Platelet Count 330 K/mm3 (142-424); Red Blood Count 5.56 M/mm3 (4.60-6.20); White Blood Count 11.7 K/mm3 (4.8-10.8)
[2023-06-22 14:44] LABS: Hemoglobin 18.6 g/dL (14.1-18.0)
== END ==
LOC: LAB.DROPOF 13:47
PROVIDERS: PCP Internal Medicine; Visit Provider Internal Medicine
DX: G60.9 Hereditary and idiopathic neuropathy, unspecified (principal); I11.0 Hypertensive heart disease with heart failure; I50.22 Chronic systolic (congestive) heart failure; I25.10 Atherosclerotic heart disease of native coronary artery without angina pectoris; E78.5 Hyperlipidemia, unspecified; N18.30 Chronic kidney disease, stage 3 unspecified; F17.209 Nicotine dependence, unspecified, with unspecified nicotine-induced disorders
CPT/HCPCS: 85025

== ENCOUNTER 2024-03-01 14:51 | Outpatient (CLI) | payer OTHER, SELFPAY ==
[2024-03-01 17:29] LABS: Basophils % 0.4 % (0.1-2.0); Eosinophils # 0.1 K/mm3 (0.0-0.4); Eosinophils % 1.2 % (0.1-12.0); Hematocrit 55.3 % (42.0-52.0); Hemoglobin 17.2 g/dL (14.1-18.0); Lymphocytes # 1.4 K/mm3 (0.7-4.5); Lymphocytes % 15.2 % (10-50); Mean Corpuscular HGB Conc 31.2 g/dL (31.8-35.4); Mean Corpuscular Hemoglobin 32.2 pg (27.0-31.2); Mean Corpuscular Volume 103.2 fl (80-94); Mean Platelet Volume 10.3 fl (7.4-10.4); Monocytes # 0.7 K/mm3 (0.1-1.0); Monocytes % 7.2 % (1.7-9.3); Neutrophils % 76.1 % (37.0-80.0); Platelet Count 316 K/mm3 (142-424); Red Blood Count 5.36 M/mm3 (4.60-6.20); Red Cell Distribution Width 14.1 % (11.5-17.5); White Blood Count 9.2 K/mm3 (4.8-10.8)
[2024-03-01 17:44] LABS: Alanine Aminotransferase 27 U/L (12-78); Albumin Level 3.9 g/dl (3.5-5.0); Albumin/Globulin Ratio 1.4 (1.1-1.8); Alkaline Phosphatase 46 U/L (38-126); Anion Gap 11.1 mEq/L (5-15); Aspartate Amino Transferase 31 U/L (17-59); Bilirubin,Total 1.4 mg/dl (0.2-1.3); Blood Urea Nitrogen 12 mg/dl (9-20); Calcium 9.2 mg/dl (8.4-10.2); Carbon Dioxide 26 mmol/L (22.0-30.0); Chloride 106 mmol/L (98-107); Chol/HDL Ratio 4.8 (1-3.5); Cholesterol 176 mg/dl (140-200); Estimated Glomerular Filt Rate 75 ml/min (>60); GFR (African American) 91 ML/MIN (>60); Globulin 2.8 g/dL (1.3-3.2); Glucose 53 mg/dl (74-100); HDL Cholesterol 37 mg/dl (40-60); Potassium 5.1 mmoL/L (3.5-5.1); Sodium 138 mmol/L (136-145); Total Protein,Serum 6.7 g/dl (6.3-8.2); Triglycerides 105 mg/dl (30-150); VLDL Cholesterol 21 mg/dL (0-40)
== END 2024-03-01 23:59 | disposition home or self-care (01) ==
LOC: LAB.DROPOF 03-02 14:52
PROVIDERS: PCP Internal Medicine; Visit Provider Internal Medicine
DX: E78.5 Hyperlipidemia, unspecified (principal); I10 Essential (primary) hypertension; Z72.0 Tobacco use
CPT/HCPCS: 80053; 80061; 85025

== ENCOUNTER 2024-09-03 16:45 | Outpatient (CLI) | payer OTHER, SELFPAY ==
[2024-09-03 17:43] LABS: Basophils # 0.1 K/mm3 (0-0.2); Basophils % 0.8 % (0.1-2.0); Eosinophils # 0.3 K/mm3 (0.0-0.4); Eosinophils % 2.8 % (0.1-12.0); Hematocrit 45.9 % (42.0-52.0); Hemoglobin 15.4 g/dL (14.1-18.0); Lymphocytes # 2.1 K/mm3 (0.7-4.5); Lymphocytes % 20.9 % (10-50); Mean Corpuscular HGB Conc 33.6 g/dL (31.8-35.4); Mean Corpuscular Hemoglobin 30.7 pg (27.0-31.2); Mean Corpuscular Volume 91.4 fl (80-94); Mean Platelet Volume 10.9 fl (7.4-10.4); Monocytes # 0.7 K/mm3 (0.1-1.0); Neutrophils # 6.8 K/mm3 (1.8-7.8); Neutrophils % 68.3 % (37.0-80.0); Platelet Count 341 K/mm3 (142-424); Red Blood Count 5.02 M/mm3 (4.60-6.20); Red Cell Distribution Width 13.2 % (11.5-17.5); White Blood Count 9.9 K/mm3 (4.8-10.8)
[2024-09-03 18:21] LABS: Albumin Level 4.3 g/dl (3.5-5.0); Chloride 104 mmol/L (98-107); Potassium 4.5 mmoL/L (3.5-5.1); Sodium 137 mmol/L (136-145)
[2024-09-03 18:24] LABS: Alanine Aminotransferase 25 U/L (12-78); Albumin/Globulin Ratio 1.9 (1.1-1.8); Alkaline Phosphatase 49 U/L (38-126); Anion Gap 11.5 mEq/L (5-15); Aspartate Amino Transferase 22 U/L (17-59); Bilirubin,Total 1.4 mg/dl (0.2-1.3); Blood Urea Nitrogen 16 mg/dl (9-20); Carbon Dioxide 26 mmol/L (22.0-30.0); Cholesterol 176 mg/dl (140-200); Estimated Glomerular Filt Rate 67 ml/min (>60); GFR (African American) 82 ML/MIN (>60); Globulin 2.3 g/dL (1.3-3.2); Total Protein,Serum 6.6 g/dl (6.3-8.2); Triglycerides 101 mg/dl (30-150); VLDL Cholesterol 20 mg/dL (0-40)
[2024-09-03 18:25] LABS: Calcium 9.1 mg/dl (8.4-10.2); Chol/HDL Ratio 4.4 (1-3.5); Glucose 95 mg/dl (74-100); HDL Cholesterol 40 mg/dl (40-60)
[2024-09-03 18:35] LABS: Direct LDL Cholesterol 114.57 mg/dL (100-129)
== END 2024-09-03 23:59 | disposition home or self-care (01) ==
LOC: LAB.DROPOF 09-04 09:22
PROVIDERS: PCP Internal Medicine; Visit Provider Internal Medicine
DX: E78.2 Mixed hyperlipidemia (principal); I11.0 Hypertensive heart disease with heart failure; I50.22 Chronic systolic (congestive) heart failure; G62.9 Polyneuropathy, unspecified
CPT/HCPCS: 80053; 80061; 85025

== ENCOUNTER 2024-12-03 17:01 | Emergency (ER) | payer SELFPAY ==
[2024-12-03] VITALS (7 sets, daily range): BP systolic 128–170; BP diastolic 96–125; PULSE 87–118; RESP 10–18; TEMP 36.6–36.8; O2SAT 94–98; BMI 25.3
--- OUTSIDE RECORDS SUMMARY | 2024-12-03 17:11 | XMS_ITS | Clinical Summary ---
Author Organization [facility] Address [address] [place] [address] Care Team Providers Care Dental Assistant Name Role Phone Raimundo Chirinos MD Primary Care Provider [phone] Moiz Mcnally MD Unavailable Bridgett Gonzales APRN Unavailable [phone] Allergies No known active allergies Medications atorvastatin (Lipitor) 20 MG tablet Take 20 mg by mouth 1 (one) time each day. 2 Active bisoprolol (Zebeta) 10 MG tablet Take 10 mg by mouth 1 (one) time each day. 1 Active furosemide (Lasix) 40 MG tablet Take 40 mg by mouth 1 (one) time each day if needed. 2 Active lisinopril 5 MG tablet Take 5 mg by mouth 1 (one) time each day. 2 Active potassium chloride CR (Klor-Con M20) 20 MEQ ER tablet Take 20 mEq by mouth 1 (one) time each day. With furosemide 2 Active zinc gluconate 50 MG tablet Take 50 mg by mouth 1 (one) time each day. Active rivaroxaban (Xarelto) 20 MG tablet Take 1 tablet (20 mg total) by mouth 1 (one) time each day. Take with food. 12/07/2021 2 Active pregabalin (Lyrica) 150 MG capsule Take 1 capsule (150 mg total) by mouth 2 (two) times a day. 60 capsule 1 2 Active Active Problems Problem Noted Date Diagnosed Date Spinal stenosis of lumbar re gion with neurogenic claudication 11/20/2021 Overview (11/20/2021): Added automatically from request for surgery [id number] Social History Tobacco Use Types Packs/Day Years Used Date Smoking Tobacco: Every Day Cigarettes 0.5 48 Smokeless Tobacco: Never Tobacco Cessation:Ready to Q uit: Not Asked; Counseling Given: Not Answered Alcohol Use Standard Drinks/Week Comments Never 0 (1 standard drink = 0.6 oz pur e alcohol) Sex and Gender Information Value Date Recorded Sex Assigned at Not on file Legal Sex Male 6:38 PM EDT Gender Identity Not on file Sexual Orientation Not on file Last Filed Vital Signs Vital Sign Reading Time Taken Comments Blood Pressure 136/86 03/10/2022 9:43 AM EDT Pulse 44 01/21/2022 11:35 AM EDT Temperature 37 C (98.6 F) 12/15/2021 7:09 AM EDT Respiratory Rate 20 12/15/2021 3:27 AM EDT Oxygen Saturation 97% 01/07/2022 9:29 AM EDT Inhaled Oxygen Concentration - - Weight 82.9 kg (182 lb 12.2 oz) 03/10/2022 9:43 AM EDT Height 167.6 cm (5' 6 ) 03/10/2022 9:43 AM EDT Body Mass Index 29.5 03/10/2022 9:43 AM EDT Plan of Treatment Health Maintenance Due Date Last Done Comments [facility]-Depression Screening 1960 [facility]-HIV Screening 1960 [facility]-Hepatitis C Screening 1960 [facility]-/Child/Adol SDOH Screenings 1960 [facility]- SDOH Screenings 01/22/1978 [facility]-Adult SDOH Screenings 01/22/1978 [facility]-DTaP,Tdap,and Td Vaccine s (1 - Tdap) 01/22/1979 CT Colonography 01/22/2005 Colonoscopy 01/22/2005 FIT-DNA 01/22/2005 FIT 01/22/2005 FOBT 01/22/2005 Sigmoidoscopy 01/22/2005 [facility]-Colorectal Cancer Screening 01/22/2005 [facility]-Pneumococcal Vaccine: 50 + Years (1 of 1 - PCV) 01/22/2010 [facility]-Zoster Vaccines (1 of 2) 01/22/2010 [id number] Vaccine (1 - 20 24-25 season) 2024 [facility]-Influenza Vaccine (Seaso n Ended) 2025 [facility]-RSV Vaccine: 60+ Years o r (1 - 1-dose 75+ series) 01/22/2035 [facility]-Obesity Intervention Completed 03/10/2022 HPV Vaccines Aged Out No longer eligi ble based on patient's age to complete this topic [facility]-HIB Vaccines Aged Out No longer e ligible based on patient's age to complete this topic [facility]-Hepatitis A Vaccines Aged Out No longer eligible based on patient's age to complete this topic [facility]-IPV Vaccines Aged Out No longer e ligible based on patient's age to complete this topic [facility]-Rotavirus Vaccines Aged Out No lo nger eligible based on patient's age to complete this topic Medical Devices Implanted Type Area Tracing Lathe Set Up Operator Device Identifier Shelf Expiration Date Model / Serial / Lot Darling Brito [id number] Domitila [id number] Dg - [id number] - [id number] Implanted:Qty: 1 on 12/11/2021 by Moiz Mcnally MD at [facility] [employer]ine Lumbar [employer] [id number] 09/16/2024 [id number] / [id number] Matrix Fibergraft Bg Lg 12.5cc - [id number] Implanted:Qty: 1 on 12/11/2021 by Moiz Mcnally MD at [facility] Spine Lumbar [employer] [id number] 02/06/2024 [id number] / / [id number] Screw 5.5mm Viper Ti Fen Crtcl Polyax 7mm X 55mm - [id number] Implanted:Qty: 4 on 12/11/2021 by Moiz Mcnally MD at [facility] Spine Lumbar [employer] [id number] / / Screw 5.5mm Viper Ti Fen Crtcl Polyax 8mm X 50mm - [id number] Implanted:Qty: 4 on 12/11/2021 by Moiz Mcnally MD at [facility] Spine Lumbar [employer] [id number] / / Pre-Lordosed Juventino W/ Line 95mm - [id number] Implanted:Qty: 2 on 12/11/2021 by Moiz Mcnally MD at [facility] Spine Lumbar [employer] [id number] / / Single Inner Setscrew - [id number] Implanted:Qty: 8 on 12/11/2021 by Moiz Mcnally MD at [facility] Spine Lumbar [employer] [id number] / / Insurance ANTHEM Care Teams Dental Assistant Relationship Specialty Start Date End Date Raimundo Chirinos MD [address] [facility] [address] [place] [address] PCP - General 11/18/21 Moiz Mcnally MD [address] [place] [address] Surgeon Neurosurgery 11/18/21 Bridgett Gonzales APRN [address] [place] [address] Nurse Practitioner Neurosurgery 01/07/22
--- OUTSIDE RECORDS SUMMARY | 2024-12-03 17:11 | XMS_ITS | Encounter Summary ---
Author Organization Healthcare Address [address] [place] [address] Care Team Providers Care Freight Unloader Name Role Phone Raimundo Chirinos MD Primary Care Provider [phone] Moiz Mcnally MD Unavailable [phone] Bridgett Gonzales MARKET RESEARCH INTERVIEWER Unavailable [phone] Reason for Visit * Reason Comments Med Refill Encounter Details Date Type Department Care Team (Late st Contact Info) Description 06/17/2022 Refill [place] [facility] [address] [place] [address] Rocio Enamorado, MARKET RESEARCH INTERVIEWER [address] [place] [address] Social History Tobacco Use Types Packs/Day Years Used Date Smoking Tobacco: Every Day Cigarettes 0.5 48 Smokeless Tobacco: Never Alcohol Use Standard Drinks/Week Comments Never 0 (1 standard drink = 0.6 oz pur e alcohol) Sex and Gender Information Value Date Recorded Sex Assigned at Not on file Legal Sex Male 6:38 PM EDT Gender Identity Not on file Sexual Orientation Not on file documented as of this encounter Plan of Treatment Not on file documented as of this encounter Visit Diagnoses Not on filedocumented in this encounter Additional Health Concerns Assessment Noted Time A fall risk assessment has been complete d for the patient 03/10/2022 9:47 AM EDT documented as of this encounter Care Teams Freight Unloader Relationship Specialty Start Date End Date Raimundo Chirinos MD [address] [place] [address] PCP - General 11/18/21 Moiz Mcnally MD [address] [place] [address] Surgeon Neurosurgery 11/18/21 Bridgett Gonzales APRN [address] [place] [address] Nurse Practitioner Neurosurgery 01/07/22 documented as of this encounter
--- NOTE | 2024-12-03 17:13 | CT_ITS ---
PROCEDURE INFORMATION: Exam: CT Abdomen And Pelvis With Contrast Exam date and time: 12/03/2024 6:40 PM Age: 64 years old Clinical indication: Nausea and vomiting; Abdominal pain; Generalized; Additional info: Abd pain, n/v, weight loss, remote HX, prostate CA TECHNIQUE: Imaging protocol: Computed tomography of the abdomen and pelvis with contrast. Radiation optimization: All CT scans at this facility use at least one of these dose optimization techniques: automated exposure control; mA and/or kV adjustment per patient size (includes targeted exams where dose is matched to clinical indication); or iterative reconstruction. Contrast material: ISOVUE; Contrast volume: 75 ml; Contrast route: IV; COMPARISON: CT ANGIO ABDOMEN PELVIS 18/05/2021 13:14 FINDINGS: Lungs: Mild centrilobular emphysema. Mild scarring and atelectasis in the lower lungs. Heart: Reflux of contrast into the IVC, hepatic veins, as well as the right renal vein and right common iliac vein suggests significant right heart dysfunction. Cardiomegaly. Mitral valve calcifications. Coronary arteries: Coronary artery calcifications. Liver: Normal. No mass. Gallbladder and biliary ducts: Borderline dilated gallbladder. Mildly prominent common duct, which is new compared to prior study. Pancreas: The main pancreatic duct is mildly dilated with a transition point in the head of the pancreas that is new compared to prior study. There is subtle haziness in the fat around the pancreatic head. Spleen: Normal. No splenomegaly. Adrenal glands: There is a 3 cm right adrenal lipid rich adenoma and a 3.3 cm left adrenal nodule that is consistent with lipid rich adenoma as well. These are unchanged since 2020. Kidneys and ureters: Mild left renal scarring. Stomach and bowel: Mild nonspecific bowel wall thickening of the stomach and portions of proximal small bowel. There are segments of fluid-filled distended small bowel in the left side of the abdomen. Moderate to severe sigmoid diverticulosis without diverticulitis. Appendix: No evidence of appendicitis. Intraperitoneal space: Unremarkable. No free air. No significant fluid collection. Vasculature: The arteries demonstrate severe atherosclerotic disease. Mild stenosis of the proximal SMA. Lymph nodes: Unremarkable. No enlarged lymph nodes. Urinary bladder: Unremarkable as visualized. Reproductive: Moderate prostate enlargement. Bones/joints: Unremarkable. No acute fracture. Soft tissues: Unremarkable. Other findings: Stigmata of old granulomatous disease. IMPRESSION: 1. Dilated biliary tree and main pancreatic duct with a transition point in the pancreatic head worrisome for malignancy. Consider contrast-enhanced MRCP versus ERCP/biopsy. 2. There is subtle haziness in the fat around the pancreatic head. Please exclude acute pancreatitis. 3. Reflux of contrast into the IVC, hepatic veins, as well as the right renal vein and right common iliac vein suggests significant right heart dysfunction. 4. Mild nonspecific bowel wall thickening of the stomach and portions of proximal small bowel. There are segments of fluid-filled distended small bowel in the left side of the abdomen. Please exclude gastroenteritis with mild ileus. 5. THIS REPORT CONTAINS FINDINGS THAT MAY BE CRITICAL TO PATIENT CARE. The findings were verbally communicated via telephone conference with Guanako Brock at 7:31 PM EDT on 12/03/2024. The findings were acknowledged and understood.
--- NOTE | 2024-12-03 17:13 | XR_ITS ---
PROCEDURE INFORMATION: Exam: XR Chest Exam date and time: 12/03/2024 5:23 PM Age: 64 years old Clinical indication: Shortness of breath; Additional info: SOA TECHNIQUE: Imaging protocol: Radiologic exam of the chest. Views: 1 view. COMPARISON: No relevant prior studies available. FINDINGS: Lungs: Unremarkable. No consolidation. Pleural spaces: Unremarkable. No pleural effusion. No pneumothorax. Heart/Mediastinum: Unremarkable. No cardiomegaly. Bones/joints: Unremarkable. IMPRESSION: No acute findings.
--- NOTE | 2024-12-03 17:19 | HMH.EDGENADL ---
Discharge Plan Disposition Patient Disposition: Xfer Short-Term Hosp Prescriptions Prescriptions: No Action gabapentin 300 mg capsule 300 mg PO QID Qty: 120 0RF Referrals Follow up/Referrals: Raimundo Chirinos MD [Primary Care Provider, Medical] - See instructions Clinical Impressions Clinical Impression: Abdominal pain, acute, epigastric, Pancreatitis, Mass of head of pancreas Instructions Patient Instructions: DI for Acute Abdominal Pain Print Language Print Language: Niuean Discharge ED Provider: John Jarvis General Adult HPI <RABIA Lombardi - Last Filed: 12/03/24 19:06> General Chief complaint: Abdominal Pain Stated complaint: Sent by PCP for Severe Abdominal Pain Weight loss; Time Seen by Provider: 12/03/24 17:08 Mode of Arrival: Ambulatory Source of Information: Patient Limitations: No Limitations History of Present Illness HPI narrative: 64-year-old male presents to the emergency department at the request of his primary care physician for a 2-week history of waxing and waning abdominal pain, localized to the mid epigastric region and left lower quadrant region, with associated nausea vomiting poor appetite/poor p.o. intake. Patient denies any fever or chills, denies any chest pain, admits to shortness of breath which is ongoing for him, but no shortness of breath is outside of his baseline, denies any constipation or diarrhea melena hematochezia hematemesis or hemoptysis, denies any urinary type symptomatology, has also noticed at least a 15 pound , weight loss within the last 2 weeks. Patient is a current everyday smoker, denies any alcohol or other drug use, and other past medical history consistent with atrial fibrillation, hyperlipidemia, coronary artery disease status post multiple stent placement, mitral regurgitation, lumbar spinal stenosis, CHF, peripheral neuropathy. Initial triage vitals notable tachycardia otherwise unremarkable. Onset (ago): week(s) Related Data Previous Rx's ?Medication ?Instructions ?Recorded gabapentin 300 mg capsule 300 mg PO QID #120 caps 11/15/24 Allergies Allergy/AdvReac Type Severity Reaction Status Date / Time No Known Drug Intolerances Allergy Unknown Unknown Verified 12/03/24 16:37 allergy reaction PFSH <RABIA Lombardi - Last Filed: 12/03/24 19:06> [facility] Disclaimer: The information contained in this section may have been updated after the patient was seen, as this information can be updated by other users. 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 Have you lived/traveled outside [place] in past 30 days?: No Contact w/someone who lives/traveled outside US past 30 days?: No Exposure to someone with infectious disease in past 14 days?: No Do you have a fever (greater than 100.4 F or 38 C)?: No Have you tested positive for COVID-19?: No Exposed to someone with COVID-19 in past 14 days?: No Do you have a sore throat?: No Do you have a cough?: No Do you have any weakness?: No Do you have any diarrhea?: No Are you experiencing any unusual bleeding?: No Do you have any muscle aches/pain?: No Do you have any abdominal pain?: No Are you experiencing loss of taste or smell?: No Other Medical History Have you received the Flu Vaccine for this season: No Have you received the Pneumonia Vaccine: No <RABIA Lombardi - Last Filed: 12/03/24 19:06> ROS Obtained: Yes All systems reviewed & no additional complaints except as documented Physical Exam <RABIA Lombardi - Last Filed: 12/03/24 19:06> General General appearance: alert and in no apparent distress Head Head exam: atraumatic and normocephalic Eye Eye exam: Present PERRL and EOMI ENT ENT exam: Present mucous membranes moist Neck Neck exam: Present normal inspection Chest Chest inspection: Present normal inspection and symmetric chest wall rise Respiratory Respiratory exam: Present normal lung sounds bilaterally; Absent respiratory distress Cardiovascular Cardiovascular exam: Present regular rate and normal rhythm Abdominal Exam Abdominal exam: Present soft, tenderness and Reese's sign; Absent guarding, rebound, rigidity or tenderness at McBurney's Point Abdominal tenderness: Present LLQ, epigastrium and mild Comment: There is mild LLQ tenderness to palpation, mild epigastric tenderness palpation, no guarding or rebound tenderness, there is a faintly positive Reese sign present Extremities Exam Extremities exam: Present normal inspection Neurological Exam Neurological exam: Present alert and oriented X3 Psychiatric Psychiatric exam: Present normal affect Skin Skin exam: Present warm and dry Medical Decision Making <RABIA Lombardi - Last Filed: 12/03/24 19:06> Medical Records Medical records reviewed: Yes I reviewed the patient's medical records. Screening: Per USPSTF and CDC recommendations, given the prevalence of disease in our region, it is our hospital?s policy to screen for HIV and viral Hepatitis for all patients aged 18 and over and those with ongoing risk factors. Jose Martin Inquiry Pt receiving controlled substance: Yes Jose Martin was queried for this patient: No Reason not queried -: Emergent pt cond-no time Risks and benefits of using a controlled substance: were discussed with pt by me Vital Signs: 12/03/24 17:15 12/03/24 17:30 12/03/24 18:00 Temperature 98 F Temperature Source Oral Pulse Rate 87 118 H Pulse Rate [Right Radial] 111 H Respiratory Rate 18 16 10 L Blood Pressure 164/125 H 151/105 H Blood Pressure [Right Arm] 170/111 H Blood Pressure Mean [Right Arm] 130 Blood Pressure Source [Right Arm] Automatic Cuff Blood Pressure Position [Right Arm] Supine 02 Sat by Pulse Oximetry 98 98 97 Oxygen Delivery Method Room Air 12/03/24 18:30 12/03/24 19:00 12/03/24 19:30 Temperature Temperature Source Pulse Rate 105 H 104 H 109 H Pulse Rate [Right Radial] Respiratory Rate 12 15 16 Blood Pressure 140/104 H 133/99 H 147/96 H Blood Pressure [Right Arm] Blood Pressure Mean [Right Arm] Blood Pressure Source [Right Arm] Blood Pressure Position [Right Arm] 02 Sat by Pulse Oximetry 95 95 94 L Oxygen Delivery Method Room Air Lab Data Lab results reviewed: Yes I reviewed the patient's lab results. Lab Results 12/03/24 17:45: WBC 11.7 H, RBC 5.71, Hgb 16.5, Hct 48.8, MCV 85.5, MCH 28.9, MCHC 33.8, RDW 17.5, Plt Count 282, MPV 10.8 H, Neut % (Auto) 71.6, Lymph % (Auto) 19.0, [place] % (Auto) 7.2, Eos % (Auto) 1.3, Baso % (Auto) 0.6, Neut # (Auto) 8.4 H, Lymph # (Auto) 2.2, [place] # (Auto) 0.8, Eos # (Auto) 0.2, Baso # (Auto) 0.1, Sodium 136, Potassium 4.3, Chloride 103, Carbon Dioxide 28, Anion Gap 9.3, BUN 19, Creatinine 1.20, Estimated Creat Clear 65, Estimated GFR 61, Est GFR ( Amer) 74, Glucose 117 H, Lactate 1.3, Calcium 9.4, Total Bilirubin 1.9 H, AST 23, ALT 30, Alkaline Phosphatase 64, Troponin I < 0.01, NT-Pro-B Natriuret Pep 4270 H, Total Protein 7.2, Albumin 4.1, Globulin 3.1, Albumin/Globulin Ratio 1.3, Lipase 1876 H, HCV Ab DAGOBERTO w/Rflx PCR Qn Negative, HIV Ag/Ab Combo Qual Negative 12/03/24 17:45 12/03/24 17:45 Orders (Tests/Meds): ED MEDICATIONS Discontinued Medications Generic Name Dose Route Start Last Admin Trade Name Freq PRN Reason Stop Dose Admin Iopamidol 75 ml 12/03/24 18:47 12/03/24 18:48 Iopamidol-370 (76%);100ml Bottle IV 12/03/24 18:48 75 ml ONCE ONE Administration Morphine Sulfate 2 mg 12/03/24 17:14 12/03/24 17:54 Morphine 2mg/Ml Syringe IV 12/03/24 17:15 2 mg ONCE ONE Administration Ondansetron HCl 4 mg 12/03/24 17:15 12/03/24 17:54 Ondansetron 4mg/2ml Vial IV 12/03/24 17:16 4 mg ONCE ONE Administration Sodium Chloride 10 ml 12/03/24 18:47 12/03/24 18:48 Sodium Chloride 0.9% 10ml Syr (Rad Only) IV 12/03/24 18:48 10 ml ONCE ONE Administration ORDERS Category Date Time Status CT abdomen pelvis w con Stat Cat Scan 12/03/24 17:13 Completed POCUS Point of Care (ER Only) Stat Exams 12/03/24 18:46 Completed XR chest portable Stat Exams 12/03/24 17:13 Completed Complete Blood Count Auto Diff Stat Lab 12/03/24 17:45 Completed Comprehensive Metabolic Panel Stat Lab 12/03/24 17:45 Completed HIV Combo Stat Lab 12/03/24 17:45 Completed Hepatitis C Ab Qual. W/ RFX Stat Lab 12/03/24 17:45 Completed Lactic Acid Stat Lab 12/03/24 17:45 Completed Lipase Stat Lab 12/03/24 17:45 Completed NT Pro Brain Natriuretic Pep. Stat Lab 12/03/24 17:45 Completed Troponin I Q3H Lab 12/03/24 20:15 Ordered Troponin I Q3H Lab 12/03/24 23:15 Ordered Troponin I Stat Lab 12/03/24 17:45 Completed Urinalysis and Microscopic Stat Lab 12/03/24 17:14 Ordered Medical Decision Narrative: 64-year-old male presents the emergency department with abdominal pain and nausea, a 15 pound weight loss over the last 2 weeks, differential diagnosis include but not limited to bowel obstruction, malignancy, pseudo colonic obstruction, cardiac arrhythmia, electrolyte disturbance, diverticulitis, pancreatitis, cholecystitis, choledocholithiasis, cholelithiasis, ileus among others. Will obtain basic laboratory studies, CT abdomen pelvis, will make the patient n.p.o., obtain chest x-ray, lipase lactate, proBNP troponin urinalysis, EKG, will give 2 mg IV morphine and 4 mg IV Zofran for pain and nausea. I reviewed the patient's initial EKG at 1731, atrial fibrillation at 116 bpm, QT interval within normal limits, there is a nonspecific ST and T wave changes, but no STEMI. I reviewed the patient's chest x-ray along with corresponding radiologic report, no acute findings. CBC is notable for mild leukocytosis 11.7 CMP is notable for no lactic acidosis, total bilirubin is elevated at 1.9, lipase is significantly elevated at 1876. Troponin is less than 0.01, proBNP is moderately elevated at 4270 Will also obtain POCUS ultrasound of the right upper quadrant due to the bilirubin elevation as well as lipase elevation. I along with attending physician performed a bedside POCUS bedside upper quadrant ultrasound, please see full ultrasound note per attending physician. I discussed this patient's case with Dr. Jarvis the attending physician at shift change, he will be assuming the remainder of the patient's care/workup disposition most likely admit for clinical pancreatitis and elevated lipase, as well as CT abdomen pelvis imaging study which radiology report is pending. <John Jarvis MD - Last Filed: 12/03/24 20:15> Vital Signs: 12/03/24 17:15 12/03/24 17:30 12/03/24 18:00 Temperature 98 F Temperature Source Oral Pulse Rate 87 118 H Pulse Rate [Right Radial] 111 H Respiratory Rate 18 16 10 L Blood Pressure 164/125 H 151/105 H Blood Pressure [Right Arm] 170/111 H Blood Pressure Mean [Right Arm] 130 Blood Pressure Source [Right Arm] Automatic Cuff Blood Pressure Position [Right Arm] Supine 02 Sat by Pulse Oximetry 98 98 97 Oxygen Delivery Method Room Air 12/03/24 18:30 12/03/24 19:00 12/03/24 19:30 Temperature Temperature Source Pulse Rate 105 H 104 H 109 H Pulse Rate [Right Radial] Respiratory Rate 12 15 16 Blood Pressure 140/104 H 133/99 H 147/96 H Blood Pressure [Right Arm] Blood Pressure Mean [Right Arm] Blood Pressure Source [Right Arm] Blood Pressure Position [Right Arm] 02 Sat by Pulse Oximetry 95 95 94 L Oxygen Delivery Method Room Air Lab Data Lab Results 12/03/24 17:45: WBC 11.7 H, RBC 5.71, Hgb 16.5, Hct 48.8, MCV 85.5, MCH 28.9, MCHC 33.8, RDW 17.5, Plt Count 282, MPV 10.8 H, Neut % (Auto) 71.6, Lymph % (Auto) 19.0, [place] % (Auto) 7.2, Eos % (Auto) 1.3, Baso % (Auto) 0.6, Neut # (Auto) 8.4 H, Lymph # (Auto) 2.2, [place] # (Auto) 0.8, Eos # (Auto) 0.2, Baso # (Auto) 0.1, Sodium 136, Potassium 4.3, Chloride 103, Carbon Dioxide 28, Anion Gap 9.3, BUN 19, Creatinine 1.20, Estimated Creat Clear 65, Estimated GFR 61, Est GFR ( Amer) 74, Glucose 117 H, Lactate 1.3, Calcium 9.4, Total Bilirubin 1.9 H, AST 23, ALT 30, Alkaline Phosphatase 64, Troponin I < 0.01, NT-Pro-B Natriuret Pep 4270 H, Total Protein 7.2, Albumin 4.1, Globulin 3.1, Albumin/Globulin Ratio 1.3, Lipase 1876 H, HCV Ab DAGOBERTO w/Rflx PCR Qn Negative, HIV Ag/Ab Combo Qual Negative Orders (Tests/Meds): ED MEDICATIONS Discontinued Medications Generic Name Dose Route Start Last Admin Trade Name Freq PRN Reason Stop Dose Admin Iopamidol 75 ml 12/03/24 18:47 12/03/24 18:48 Iopamidol-370 (76%);100ml Bottle IV 12/03/24 18:48 75 ml ONCE ONE Administration Morphine Sulfate 2 mg 12/03/24 17:14 12/03/24 17:54 Morphine 2mg/Ml Syringe IV 12/03/24 17:15 2 mg ONCE ONE Administration Ondansetron HCl 4 mg 12/03/24 17:15 12/03/24 17:54 Ondansetron 4mg/2ml Vial IV 12/03/24 17:16 4 mg ONCE ONE Administration Sodium Chloride 10 ml 12/03/24 18:47 12/03/24 18:48 Sodium Chloride 0.9% 10ml Syr (Rad Only) IV 12/03/24 18:48 10 ml ONCE ONE Administration ORDERS Category Date Time Status CT abdomen pelvis w con Stat Cat Scan 12/03/24 17:13 Completed POCUS Point of Care (ER Only) Stat Exams 12/03/24 18:46 Completed XR chest portable Stat Exams 12/03/24 17:13 Completed Complete Blood Count Auto Diff Stat Lab 12/03/24 17:45 Completed Comprehensive Metabolic Panel Stat Lab 12/03/24 17:45 Completed HIV Combo Stat Lab 12/03/24 17:45 Completed Hepatitis C Ab Qual. W/ RFX Stat Lab 12/03/24 17:45 Completed Lactic Acid Stat Lab 12/03/24 17:45 Completed Lipase Stat Lab 12/03/24 17:45 Completed NT Pro Brain Natriuretic Pep. Stat Lab 12/03/24 17:45 Completed Troponin I Q3H Lab 12/03/24 20:15 Ordered Troponin I Q3H Lab 12/03/24 23:15 Ordered Troponin I Stat Lab 12/03/24 17:45 Completed Urinalysis and Microscopic Stat Lab 12/03/24 17:14 Ordered Medical Decision Narrative: 64-year-old male presents the emergency department with abdominal pain and nausea, a 15 pound weight loss over the last 2 weeks, differential diagnosis include but not limited to bowel obstruction, malignancy, pseudo colonic obstruction, cardiac arrhythmia, electrolyte disturbance, diverticulitis, pancreatitis, cholecystitis, choledocholithiasis, cholelithiasis, ileus among others. Will obtain basic laboratory studies, CT abdomen pelvis, will make the patient n.p.o., obtain chest x-ray, lipase lactate, proBNP troponin urinalysis, EKG, will give 2 mg IV morphine and 4 mg IV Zofran for pain and nausea. I reviewed the patient's initial EKG at 1731, atrial fibrillation at 116 bpm, QT interval within normal limits, there is a nonspecific ST and T wave changes, but no STEMI. I reviewed the patient's chest x-ray along with corresponding radiologic report, no acute findings. CBC is notable for mild leukocytosis 11.7 CMP is notable for no lactic acidosis, total bilirubin is elevated at 1.9, lipase is significantly elevated at 1876. Troponin is less than 0.01, proBNP is moderately elevated at 4270 Will also obtain POCUS ultrasound of the right upper quadrant due to the bilirubin elevation as well as lipase elevation. I along with attending physician performed a bedside POCUS bedside upper quadrant ultrasound, please see full ultrasound note per attending physician. I discussed this patient's case with Dr. Jarvis the attending physician at shift change, he will be assuming the remainder of the patient's care/workup disposition most likely admit for clinical pancreatitis and elevated lipase, as well as CT abdomen pelvis imaging study which radiology report is pending. MD Matheus: ANDREW attestation I was consulted by the ANDREW, and we discussed the complexity of problems being addressed. I approved the treatment and management plan for this patient's care in the emergency department, thus performing a substantial portion of the medical decision making. I assumed primary care of the patient at approximately 1900 as described above. I had already examined the patient at bedside. CT imaging was independently interpreted by me revealing of a significantly dilated gallbladder and pancreatic stranding. RUQ ultrasound revealed a significantly dilated gallbladder with apparent sludge. Attempted to identify the common bile duct and believe it was measured at 12 mm. Radiologist called me and stated that it appeared the patient had an isolated pancreatic head mass with no identified mets. Stated that patient had a double duct sign consistent with diagnosis of likely pancreatic malignancy. Discussed patient's case with [facility] who accepted the patient as a transfer to [facility] for oncological evaluation. Accepting physician was Dr. Garcia. John Jarvis MD Procedures <John Jarvis MD - Last Filed: 12/03/24 20:15> Miscellaneous Procedure Procedure Performed: RUQ ultrasound Limited RUQ ultrasound Indication: Epigastric abdominal pain/pancreatitis Identified structures: -Gallbladder -Gallbladder wall -Common bile duct -Liver Findings: Sonographic Reese sign: Absent Gallstones: Absent Sludge: Present Pericholecystic fluid: Absent Common bile duct width (mm): [normal is </= 6mm] [Normal/abnormal] Impression: [-Normal gallbladder -Cholelithiasis -Cholecystitis -Choledocholithiasis] Images were saved to permanent archive The study was technically adequate CPT 35349-04 This study was performed by me, and I personally interpreted all images/videos. Based on my clinical judgement, these images were adequate and did not necessitate further imaging. Critical Care <RABIA Lombardi - Last Filed: 12/03/24 19:06> Critical Care Time Critical Care Time: No
--- NOTE | 2024-12-03 17:31 | ECG_ITS ---
APPROVED REPORT Exam: Resting ECG HR:116 bpm ECG Measurements Heart Rate 116 AXES QRSd 107 QRS 66 QT 338 T 57 QTc 407 Conclusion ATRIAL FIBRILLATION WITH RAPID VENTRICULAR RESPONSE WITH ABERRANT CONDUCTION OR VENTRICULAR PREMATURE COMPLEXES NONSPECIFIC ST & T-WAVE ABNORMALITY ABNORMAL RHYTHM ECG UNCONFIRMED REPORT Electronically signed by : MARTY HUSSEIN, 12/06/2024 01:19:36
[2024-12-03] MEDS: MORPHINE 2MG/ML SYRINGE 2 MG IV (17:54)
[2024-12-03] MEDS: ONDANSETRON 4MG/2ML VIAL 4 MG IV (17:54)
[2024-12-03 17:59] LABS: Basophils # 0.1 K/mm3 (0-0.2); Eosinophils # 0.2 Kmm3 (0.0-0.4); Hemoglobin 16.5 g/dL (14.1-18.0); Immature Granulocytes # 0.03 10^3uL; Immature Granulocytes % 0.3 %; Lymphocytes # 2.2 K/mm3 (0.7-4.5); Nucleated Red Blood Cells # 0 10^3/uL; Nucleated Red Blood Cells % 0 %; Red Cell Distribution Width 17.5 % (11.5-17.5)
[2024-12-03 18:04] LABS: Alanine Aminotransferase 30 U/L (12-78); Albumin Level 4.1 g/dl (3.5-5.0); Albumin/Globulin Ratio 1.3 (1.1-1.8); Alkaline Phosphatase 64 U/L (38-126); Anion Gap 9.3 mEq/L (5-15); Aspartate Amino Transferase 23 U/L (17-59); Bilirubin,Total 1.9 mg/dl (0.2-1.3); Blood Urea Nitrogen 19 mg/dl (9-20); Calcium 9.4 mg/dl (8.4-10.2); Carbon Dioxide 28 mmol/L (22.0-30.0); Chloride 103 mmol/L (98-107); Creatinine Clearance Estimated 65 mL/min (50-200); Estimated Glomerular Filt Rate 61 ml/min (>60); GFR (African American) 74 ML/MIN (>60); Globulin 3.1 g/dL (1.3-3.2); Glucose 117 mg/dl (74-100); Potassium 4.3 mmoL/L (3.5-5.1); Sodium 136 mmol/L (136-145); Total Protein,Serum 7.2 g/dl (6.3-8.2)
[2024-12-03 18:05] LABS: Lactic Acid 1.3 mmol/L (0.7-2.1)
[2024-12-03 18:13] LABS: Basophils % 0.6 % (0.1-2.0); Eosinophils % 1.3 % (0.1-12.0); Hematocrit 48.8 % (42.0-52.0); Lipase 1876 U/L (23-300); Mean Corpuscular HGB Conc 33.8 g/dL (31.8-35.4); Mean Corpuscular Hemoglobin 28.9 pg (27.0-31.2); Mean Corpuscular Volume 85.5 fl (80-94); Mean Platelet Volume 10.8 fl (7.4-10.4); Monocytes # 0.8 K/mm3 (0.1-1.0); Monocytes % 7.2 % (1.7-9.3); Neutrophils # 8.4 K/mm3 (1.8-7.8); Neutrophils % 71.6 % (37.0-80.0); Platelet Count 282 K/mm3 (142-424); Red Blood Count 5.71 M/mm3 (4.60-6.20); Red Cell Distribution Width-SD 51.1 fL; White Blood Count 11.7 K/mm3 (4.8-10.8)
--- NOTE | 2024-12-03 18:14 | PC.NURSE ---
CRITICAL LIPASE 1875, PT NAME AND R/V. DR MORRIS NOTIFIED
[2024-12-03 18:16] LABS: NT Pro Brain Natriuretic Pep. 4270 pg/mL (0-125)
[2024-12-03 18:21] LABS: Troponin I < 0.01 ng/ml (0.00-0.034)
--- NOTE | 2024-12-03 18:39 | PC.NURSE ---
PT TO CT
[2024-12-03 18:45] LABS: HIV Combo NEGATIVE (Negative)
[2024-12-03] MEDS: IOPAMIDOL-370 (76%);100ML BOTTLE 75 ML IV (18:48)
[2024-12-03] MEDS: SODIUM CHLORIDE 0.9% 10ML SYR (RAD ONLY) 10 ML IV (18:48)
--- NOTE | 2024-12-03 18:50 | PC.NURSE ---
PT RETURNED FROM CT
[2024-12-03 18:53] LABS: Hepatitis C Ab Qual. W/ RFX NEGATIVE (Negative)
--- NOTE | 2024-12-03 19:35 | PC.NURSE ---
spoke with radiology about power sharing imagines. called [facility] for transfer, stated they will call back after reviewing imagines
--- NOTE | 2024-12-03 20:45 | INFXCTL.NOTE ---
called report to KENNETH Perez
== END 2024-12-03 20:52 | disposition short-term general hospital (02) ==
PROVIDERS: Physician Assistant; Emergency Provider Student in an Organized Health Care Education/Training Program; PCP Internal Medicine
DX: R10.13 Epigastric pain (principal); K85.90 Acute pancreatitis without necrosis or infection, unspecified; K86.89 Other specified diseases of pancreas; F17.210 Nicotine dependence, cigarettes, uncomplicated; Z11.59 Encounter for screening for other viral diseases; Z11.4 Encounter for screening for human immunodeficiency virus [HIV]; I50.22 Chronic systolic (congestive) heart failure; I11.0 Hypertensive heart disease with heart failure
CPT/HCPCS: 71045; 74177; 80053; 80074; 83605; 83690; 83880; 84484; 85025; 87389; 93005; 96374; 96375; 99285; J2270; J2405; Q9967

== ENCOUNTER 2024-12-31 16:00 | Outpatient (CLI) | payer MEDICARE, SELFPAY ==
--- OUTSIDE RECORDS SUMMARY | 2024-12-05 19:20 | XMS_ITS | Encounter Summary ---
Author Organization [facility] Address [address] [place] [address] Care Team Providers Care Superintendent Circus Name Role Phone Raimundo Chirinos MD Primary Care Provider [phone] Moiz Mcnally MD Unavailable [phone] Bridgett Gonzales ROPE CUTTER Unavailable [phone] Reason for Visit * Reason Comments Abdominal Pain * Auth/Cert (Routine) Specialty Diagnoses / Procedures Referred By Pola t Referred To Contact Diagnoses Pancreatic mass Chan Antony MD [address] [place] [address] Phone: tel: fax: [facility] [address] [place] [address] Phone: tel: Referral ID Status Reason Start Date Expiration Date Visits Re quested Visits Authorized [id number] 1 1 Encounter Details Date Type Department Care Team (Latest Contact Info) Description 12/05/2024 7:20 PM EDT - 12/07/2024 6:30 PM EDT Hospital Encounter [facility] [address] [place] [address] Padmini Fitzpatrick MD [address] [place] [address] Chan Antony MD [address] [place] [address] Upper abdominal pain (Primary Dx); Mass of head of pancreas Discharge Disposition: Home or Self Care Social History Tobacco Use Types Packs/Day Years Used Date Smoking Tobacco: Every Day Cigarettes 0.5 48 Smokeless Tobacco: Never Alcohol Use Standard Drinks/Week Comments Never 0 (1 standard drink = 0.6 oz pur e alcohol) Humiliation, Afraid, Rape, and Kick questionnair e Answer Date Recorded Within the last year, have y ou been afraid of your partner or ex-partner? No 12/06/2024 Within the last year, have y ou been humiliated or emotionally abused in other ways by your partner or ex-partner? No Within the last year, have y ou been kicked, hit, slapped, or otherwise physically hurt by your partner or ex-partner? No 12/06/2024 Within the last year, have y ou been raped or forced to have any kind of sexual activity by your partner or ex-partner? No 12/06/2024 Hunger Vital Sign Answer Date Recorded Within the past 12 months, y ou worried that your food would run out before you got the money to buy more. Never true 12/07/19 25 Within the past 12 months, t he food you bought just didn't last and you didn't have money to get more. Never true 12/06/2024 PRAPARE - Transportation Answer Date Re corded In the past 12 months, has l ack of transportation kept you from medical appointments or from getting medications? No 11/25 In the past 12 months, has l ack of transportation kept you from meetings, work, or from getting things needed for daily living? No 12/06/2024 Housing Stability Vital Sign Answer Uriel e Recorded In the last 12 months, was t here a time when you were not able to pay the mortgage or rent on time? No 12/06/2024 Number of Times Moved in the Last Year Not on fi le 12/06/2024 At any time in the past [address] [facility], were you homeless or living in a group home (including now)? No 12/06/2024 CAGE ASSESSMENT Answer Date Recorded Cage unable to access Not on file 12/05/2024 Cage max number of drinks Not on file 2024 Cage Beverages a week Not on file 12/05/2024 Have you ever felt you should CUT down on your d rinking? 0 12/05/2024 Have you been ANNOYED by people criticizing your drinking? 0 12/05/2024 Have you felt GUILTY about your drinking? 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 0 12/05/2024 CAGE Questionnaire Score 0 025 Utilities Answer Date Recorded In the past 12 months has [employer], gas, oil, or water [employer] threatened to shut off services in your home? No 12/06/2024 Sex and Gender Information Value Date Recorded Sex Assigned at Not on file Legal Sex Male 6:38 PM EDT Gender Identity Not on file Sexual Orientation Not on file documented as of this encounter Last Filed Vital Signs Vital Sign Reading Time Taken Comments Blood Pressure 131/89 12/07/2024 3:51 PM EDT Pulse 107 12/07/2024 3:51 PM EDT Temperature 36.7 C (98 F) 12/07/2024 3:51 PM EDT Respiratory Rate 15 12/07/2024 3:51 PM EDT Oxygen Saturation 95% 12/07/2024 3:51 PM EDT Inhaled Oxygen Concentration - - Weight 73.2 kg (161 lb 6 oz) 12/05/2024 6:38 PM EDT Height 170.2 cm (5' 7 ) 12/05/2024 6:38 PM EDT Body Mass Index 25.28 12/05/2024 6:38 PM EDT documented in this encounter Functional Status * Calculated C-SSRS Risk Score (Lifetime/Recent) Answer Date of Assessment Author No Risk Indicated 12/07/2024 8:00 AM EDT Monique Bryan RN * Question Answer Date of Assessment Author 1. Wish to be (Past 1 Month) No 025 8:00 AM EDT Monique Bryan RN 2. Non-Specific Active Suici sharita Thoughts (Past 1 Month) No 12/07/2024 8:00 AM EDT Thea Bryan, RN 6. Suicidal Behavior (Lifetime) No 8:00 AM EDT Irvin, Monique, RN documented as of this encounter Discharge Instructions * Discharge Instructions* Terrance Del Real MD - 12/07/2024 5:58 PM EDT Follow-up with your primary care provider in 1 week. Follow up with [facility] for ERCP with [facility], referral made [phone] Outpatient Follow-Up Planned ERCP with [facility]. [facility] will call with appointment. documented in this encounter Medications at Time of Discharge senna-docusate sodium (Senokot-S) 8.6-50 MG tablet Take 1 tablet by mouth 2 times a day as needed for constipation. 60 tablet 2 12/07/2024 furosemide (Lasix) 40 MG tablet Take 2 tablets by mouth every other day. 12/07/2024 5 gabapentin (Neurontin) 300 MG capsule Take 1 capsule by mouth 4 times a day. 5 oxyCODONE (Roxicodone) 5 MG immediate release tablet Take 1 tablet by mouth every 4 hours as needed for severe pain. 42 tablet 12/07/2024 potassium chloride CR (Klor-Con M20) 20 MEQ ER tablet Take 2 tablets by mouth every other day. With furosemide 12/07/2024 5 documented as of this encounter Miscellaneous Notes * Consults - Rigoberto Land - 12/07/2024 6:00 PM EDT Pastoral Care Note Visited patient and his at bedside. Mr. Mujica shared concerns related to his health condition and requested a prayer for healing, which was provided along with emotional and spiritual support.They both, patient and wide, expressed gratitude for the pastoral visit and requested continued prayer. Referral From: Managing Consultant Clinical Professor Initiated Pastoral Care Provided For: Patient, Spouse Patient Profile: Consult Reasons: Follow up, Continuation of care Spiritual Assessment: Support Systems/ Spiritual Resources: Janey, Family, Prayer Spiritual Needs: Prayer, Spiritual support Spiritual Issues: Family concerns, Global/ social concern Interventions: Interventions Provided: Affirm acceptance and gratitude, Emotional support, Family support, Prayer,Identify orthodoxy/ spiritual coping, Spiritual support, Supportive Listening, Introduced Patient/Family to Managing Consultant Clinical Professor Services Pastoral Care Outcomes: Patient Outcomes: Is knowledgeable about [facility], Gratitude, Identifies spiritual or orthodoxy practices as helpful, Expresses being seen and heard, Appreciative of Managing Consultant Clinical Professor Support * Discharge Summary - Terrance Del Real MD - 12/07/2024 5:55 PM EDT Hospitalization Admit Date/Time: 12/05/2024 7:20 PM Admitting Attending: Chan Antony Discharge Date: 12/07/24 Discharge Attending Physician: Chan Antony MD PCP name and Address: Raimundo Chirinos MD [address] [place] [address] [address] / [place] [id number] Referring provider name and address: No referring provider defined for this encounter. Chief Concern, Brief History of Present Illness, and Hospital Course Guanako Brock is a 64 y.o. male with past history of chronic HFpEF (last EF 45-60%), pAfib (no AC), CAD s/p stents x8, HTN, smoker, and neuropathy presented to [facility] ER with the same symptoms that he was originally admitted for on 12/04. On 12/04 he was admitted for work up of his pancreatic mass, he had some concerns about insurance and left AMA. He is presenting again for the same reasons. Since he has been home his pain is ongoing. Of note, he was originally admitted after being transferred from [facility] on 12/04 for onset 2 weeks ago of LUQ pain with nausea/vomiting worsening over the last few days. Patient presented previously to local ED with VSS. WBC 11, lipase 1876, Tbili 1.9, AST/ALT and ALP normal. CT imaging demonstrated acute pancreatitis, new pancreatic head mass, and dilated biliary tree with double duct sign concerning for malignancy. Patient endorses waxing/waning epigastric/LUQ pain, 10/10 at its worst, currently rates the pain 2/10 with administration of pain medications. He had associated nausea with nonbilious, nonbloody emesis. Loss of appetite, poor by mouth intake, and reported weight loss of 15 lb in roughly the past couple of weeks. Symptoms worse with solid food intake, nothing helps. No history of similar presentation in the past. Smokes 1 PPD. Denies alcohol use or illicit drug use. No FH of pancreatitis, liver disease, or GI related cancer. Denies fever, chills, URI symptoms, cough, shortness of air, hematemesis, blood in stool, dysuria, hematuria, headache, dizziness, confusion. Acute pancreatitis, new pancreatic head mass -worsening epigastric/LUQ pain with nausea/vomiting, unintentional wt loss past 2 weeks -OSH Tbili 1.9, lipase 1876 -OSH CT findings of acute pancreatitis, new pancreatic head mass, and dilated biliary tree with double duct sign concerning for malignancy. -afebrile, no leukocytosis, lactate 1.1 -Tbili 1.6 with normal AST/ALT, ALP -lipase 599, TG 63 PLAN -Patient wants to trial regular diet, MIVF -MRCP W/WO ordered -morphine 4 mg q4h PRN, senna 17.2 mg at bedtime -ondansetron 4 mg IV q6h PRN -Discussed with GI and let them know he has retunred. -CA 19-9 : 158 MRCP show inflammation and pancreatic mas. Dilated ducts without discrete obstruction. GI says any ERCP would not be done until next week. Pain is pretty well controlled with oxycodone. Chronic HFpEF CAD s/p 8 stents (last in 2020) pAfib -ECHO 05/19/2021: LVEF is variable d/t arrhythmia, but is visually estimated at 45 - 60%. -NTproBNP 2,880 -Home regimen: not taking Xarelto, Zebeta, ?statin intolerant -Discussed with patient, he took himself off of all his Afib medications. He has no interest in restarting them, discussed risks and benefits. PLAN -EKG, CXR, and ECHO ordered -2g Na diet, daily weight -keep potassium >4, magnesium >2 -defer to Primary re: resuming Xarelto, BB ELDER likely 2/2 hypovolemia -improving -Cr 1.12 down from 1.21 -> unknown baseline Cr PLAN -UA, urine studies -bladder scan once for PVR -gently hydrate, monitor for volume overload -avoid NSAIDS/Nephrotoxins, renally dose meds based on EGFR -strict I/O, trend Cr Continue NS 100ml/hr for volume resuscitation Neuropathy/chronic pain -Jose Martin reviewed, continue home gabapentin Tobacco use d/o -no interest in quitting, declined NRT, cessation encouraged Venous thromboembolism prophylaxis Bilateral sequential compression. Patient not taking Xarelto. Venous thromboembolism prophylaxis Patient on enoxaparin Diet Regular Diet as tolerated Code Status Full Code Medically Ready for Discharge:Anticipated in 2-4 Days Surgeries and Procedures Medication List .. furosemide 40 MG tablet Commonly known as: Lasix Take 2 tablets by mouth every other day. gabapentin 300 MG capsule Commonly known as: Neurontin Take 1 capsule by mouth 4 times a day. oxyCODONE 5 MG immediate release tablet Commonly known as: Roxicodone Take 1 tablet by mouth every 4 hours as needed for severe pain. potassium chloride CR 20 MEQ ER tablet Commonly known as: Klor-Con M20 Take 2 tablets by mouth every other day. With furosemide senna-docusate sodium 8.6-50 MG tablet Commonly known as: Senokot-S Take 1 tablet by mouth 2 times a day as needed for constipation. Where to Get Your Medications These medications were sent to [facility] [place] [address] oxyCODONE 5 MG immediate release tablet senna-docusate sodium 8.6-50 MG tablet Information about where to get these medications is not yet available Ask your nurse or doctor about these medications furosemide 40 MG tablet potassium chloride CR 20 MEQ ER tablet Discharge Diagnosis Medical Problems Active and Resolved Hospital Problems Hospital * (Principal) Pancreatic mass Upper abdominal pain Moderate protein-calorie malnutrition (CMS/HCC) Post Discharge Instructions Follow-up with your primary care provider in 1 week. Follow up with GI for ERCP with EUS, referral made [phone] Outpatient Follow-Up Planned ERCP with EUS. GI will call with appointment. Test Results Pending At Discharge Pertinent Physical Exam At Time of Discharge Physical Exam Constitutional: General: He is not in acute distress. Appearance: He is well-developed. He is not diaphoretic. HENT: Head: Normocephalic and atraumatic. Mouth/Throat: Comments: Normal oral and pharyngeal mucosa Cardiovascular: Rate and Rhythm: Normal rate and regular rhythm. Heart sounds: Normal heart sounds. Pulmonary: Effort: Pulmonary effort is normal. Breath sounds: Normal breath sounds. Abdominal: General: Bowel sounds are normal. Palpations: Abdomen is soft. Tenderness: There is no abdominal tenderness. Skin: General: Skin is warm and dry. Neurological: Mental Status: He is alert. Discharge Disposition/Condition Disposition: Home Condition: Stable (s/sx potential problems absent or manageable) I spent >30 minutes of patient care and instruction time in preparation for this discharge. * Hospital Course - Terrance Del Real MD - 12/07/2024 5:01 PM EDT Guanako Brock is a 64 y.o. male with past history of chronic HFpEF (last EF 45-60%), pAfib (no AC), CAD s/p stents x8, HTN, smoker, and neuropathy presented to [facility] ER with the same symptoms that he was originally admitted for on 12/04. On 12/04 he was admitted for work up of his pancreatic mass, he had some concerns about insurance and left AMA. He is presenting again for the same reasons. Since he has been home his pain is ongoing. Of note, he was originally admitted after being transferred from [facility] on 12/04 for onset 2 weeks ago of LUQ pain with nausea/vomiting worsening over the last few days. Patient presented previously to local ED with VSS. WBC 11, lipase 1876, Tbili 1.9, AST/ALT and ALP normal. CT imaging demonstrated acute pancreatitis, new pancreatic head mass, and dilated biliary tree with double duct sign concerning for malignancy. Patient endorses waxing/waning epigastric/LUQ pain, 10/10 at its worst, currently rates the pain 2/10 with administration of pain medications. He had associated nausea with nonbilious, nonbloody emesis. Loss of appetite, poor by mouth intake, and reported weight loss of 15 lb in roughly the past couple of weeks. Symptoms worse with solid food intake, nothing helps. No history of similar presentation in the past. Smokes 1 PPD. Denies alcohol use or illicit drug use. No FH of pancreatitis, liver disease, or GI related cancer. Denies fever, chills, URI symptoms, cough, shortness of air, hematemesis, blood in stool, dysuria, hematuria, headache, dizziness, confusion. Acute pancreatitis, new pancreatic head mass -worsening epigastric/LUQ pain with nausea/vomiting, unintentional wt loss past 2 weeks -OSH Tbili 1.9, lipase 1876 -OSH CT findings of acute pancreatitis, new pancreatic head mass, and dilated biliary tree with double duct sign concerning for malignancy. -afebrile, no leukocytosis, lactate 1.1 -Tbili 1.6 with normal AST/ALT, ALP -lipase 599, TG 63 PLAN -Patient wants to trial regular diet, MIVF -MRCP W/WO ordered -morphine 4 mg q4h PRN, senna 17.2 mg at bedtime -ondansetron 4 mg IV q6h PRN -Discussed with GI and let them know he has retunred. -CA 19-9 : 158 MRCP show inflammation and pancreatic mas. Dilated ducts without discrete obstruction. GI says any ERCP would not be done until next week. Pain is pretty well controlled with oxycodone. Chronic HFpEF CAD s/p 8 stents (last in 2020) pAfib -ECHO 05/19/2021: LVEF is variable d/t arrhythmia, but is visually estimated at 45 - 60%. -NTproBNP 2,880 -Home regimen: not taking Xarelto, Zebeta, ?statin intolerant -Discussed with patient, he took himself off of all his Afib medications. He has no interest in restarting them, discussed risks and benefits. PLAN -EKG, CXR, and ECHO ordered -2g Na diet, daily weight -keep potassium >4, magnesium >2 -defer to Primary re: resuming Xarelto, BB ELDER likely 2/2 hypovolemia -improving -Cr 1.12 down from 1.21 -> unknown baseline Cr PLAN -UA, urine studies -bladder scan once for PVR -gently hydrate, monitor for volume overload -avoid NSAIDS/Nephrotoxins, renally dose meds based on EGFR -strict I/O, trend Cr Continue NS 100ml/hr for volume resuscitation Neuropathy/chronic pain -Jose Martin reviewed, continue home gabapentin Tobacco use d/o -no interest in quitting, declined NRT, cessation encouraged Venous thromboembolism prophylaxis Bilateral sequential compression. Patient not taking Xarelto. Venous thromboembolism prophylaxis Patient on enoxaparin Diet Regular Diet as tolerated Code Status Full Code Medically Ready for Discharge:Anticipated in 2-4 Days * Care Plan - Keara Tovar MD - 12/07/2024 4:58 PM EDT Patient had MRCP performed today which shows approximately 2cm uncinate lesion with intra and extrahepatic dilation along with dilation of the PD. It is concerning for possible malignancy. Has had acute pancreatitis which we have recommended symptomatic management for prior to procedure which couldbe considered next week if symptoms of pain are being better controlled. Would benefit from EGD with EUS for biopsies and possible stenting of PD. Per primary team patient is considering discharge home. If that happens would recommend outpatient procedure. Discussed with Dr Clint Tovar MD PGY-4 Gastroenterology * Care Plan - Naheed Garay RN - 12/07/2024 2:19 AM EDT Problem: Adult Inpatient Plan of Care Goal: Plan of Care Review Outcome: Ongoing, Progressing Flowsheets (Taken 12/07/2024216) Progress: no change Plan of Care Reviewed With: patient Goal: Patient-Specific Goal (Individualized) Outcome: Ongoing, Progressing Flowsheets (Taken 12/06/2024 0800 by Monique Bryan, RN) Patient/Family-Specific Goals (Include Timeframe): patient will be free from harm throughout this shift Individualized Care Needs: safety Goal: Absence of Hospital-Acquired Illness or Injury Outcome: Ongoing, Progressing Intervention: Identify and Manage Fall Risk Flowsheets (Taken 12/07/2024216) Safety Promotion/Fall Prevention: lighting adjusted clutter-free environment maintained safety round/check completed room organization consistent nonskid shoes/slippers when out of bed Intervention: Prevent Skin Injury Flowsheets (Taken 12/07/2024216) Body Position: weight shifting Intervention: Prevent Infection Flowsheets (Taken 12/07/2024 0217) Infection Prevention: environmental surveillance performed equipment surfaces disinfected rest/sleep promoted hand hygiene promoted single patient room provided Goal: Optimal Comfort and Wellbeing Outcome: Ongoing, Progressing Intervention: Monitor Pain and Promote Comfort Flowsheets (Taken 12/07/2024 0130) Pain Management Interventions: medication (see MAR) Intervention: Provide Person-Centered Care Flowsheets (Taken 12/06/2024311) Trust Relationship/Rapport: care explained choices provided emotional support provided empathic listening provided thoughts/feelings acknowledged reassurance provided questions encouraged questions answered Goal: Readiness for Transition of Care Outcome: Ongoing, Progressing Problem: Pain Acute Goal: Optimal Pain Control and Function Outcome: Ongoing, Progressing Intervention: Optimize Psychosocial Wellbeing Flowsheets (Taken 12/06/2024311) Supportive Measures: active listening utilized decision-making supported goal-setting facilitated positive reinforcement provided self-care encouraged verbalization of feelings encouraged Diversional Activities: television Intervention: Develop Pain Management Plan Flowsheets (Taken 12/07/2024129) Pain Management Interventions: medication (see MAR) Intervention: Prevent or Manage Pain Flowsheets (Taken 12/06/2024311) Bowel Elimination Promotion: adequate fluid intake promoted ambulation promoted privacy promoted * Progress Notes - Terrance Del Real MD - 12/06/2024 5:36 PM EDT Subjective Abd pain improved. No new complaints. Review of Systems Objective Vitals Temp: [36.4 ??C (97.6 ??F)-36.9 ??C (98.5 ??F)] 36.8 ??C (98.3 ??F) Heart Rate: [60-102] 93 Resp: [16-18] 16 BP: (101-153)/(68-103) 101/69 Physical Exam Constitutional: General: He is not in acute distress. Appearance: He is well-developed. He is not diaphoretic. HENT: Head: Normocephalic and atraumatic. Mouth/Throat: Comments: Normal oral and pharyngeal mucosa Cardiovascular: Rate and Rhythm: Normal rate and regular rhythm. Heart sounds: Normal heart sounds. Pulmonary: Effort: Pulmonary effort is normal. Breath sounds: Normal breath sounds. Abdominal: General: Bowel sounds are normal. There is no distension. Palpations: Abdomen is soft. Tenderness: There is abdominal tenderness. There is no guarding. Skin: General: Skin is warm and dry. Neurological: Mental Status: He is alert. Recent labs Results from last 7 days Lab Units 12/06/24 0545 12/05/24200712/03/24 2318 HEMOGLOBIN g/dL 13.7 15.9 16.1 HEMATOCRIT % 41.4 47.8 47.7 PLATELETS 10*3/uL 205 235 251 WBC 10*3/uL 7.69 10.84* 10.98* NEUTROS PCT % 68 82 77 LYMPHS PCT % 21 11 14 MONOS PCT % 7 6 6 EOS PCT % 3 1 2 Results from last 7 days Lab Units 12/06/24 0545 12/05/24200712/03/24 2318 SODIUM mmol/L 141 139 131* POTASSIUM mmol/L 3.9 3.9 3.8 CHLORIDE mmol/L 112* 103 100 CO2 mmol/L 21* 24 25 BUN mg/dL 19 21 19 CREATININE mg/dL 1.00 1.12 1.21* AST U/L 25 33 42 ALT U/L 34 49 43 ALKALINE PHOSPHATASE U/L 68 85 82 ALBUMIN g/dL 3.1* 3.8 3.9 BILIRUBIN TOTAL mg/dL 0.9 1.6* 1.6* GLUCOSE mg/dL 170* 126* 153* Assessment & Plan Pancreatic mass Upper abdominal pain Moderate protein-calorie malnutrition (CMS/HCC) Acute pancreatitis, new pancreatic head mass -worsening epigastric/LUQ pain with nausea/vomiting, unintentional wt loss past 2 weeks -OSH Tbili 1.9, lipase 1876 -OSH CT findings of acute pancreatitis, new pancreatic head mass, and dilated biliary tree with double duct sign concerning for malignancy. -afebrile, no leukocytosis, lactate 1.1 -Tbili 1.6 with normal AST/ALT, ALP -lipase 599, TG 63 PLAN -Patient wants to trial regular diet, MIVF -MRCP W/WO ordered -morphine 4 mg q4h PRN, senna 17.2 mg at bedtime -ondansetron 4 mg IV q6h PRN -Discussed with GI and let them know he has retunred. -CA 19-9 : 158 Awaiting MRCP GI says any ERCP would not be done until next week. Chronic HFpEF CAD s/p 8 stents (last in 2020) pAfib -ECHO 05/19/2021: LVEF is variable d/t arrhythmia, but is visually estimated at 45 - 60%. -NTproBNP 2,880 -Home regimen: not taking Xarelto, Zebeta, ?statin intolerant -Discussed with patient, he took himself off of all his Afib medications. He has no interest in restarting them, discussed risks and benefits. PLAN -EKG, CXR, and ECHO ordered -2g Na diet, daily weight -keep potassium >4, magnesium >2 -defer to Primary re: resuming Xarelto, BB ELDER likely 2/2 hypovolemia -improving -Cr 1.12 down from 1.21 -> unknown baseline Cr PLAN -UA, urine studies -bladder scan once for PVR -gently hydrate, monitor for volume overload -avoid NSAIDS/Nephrotoxins, renally dose meds based on EGFR -strict I/O, trend Cr Continue NS 100ml/hr for volume resuscitation Neuropathy/chronic pain -Jose Martin reviewed, continue home gabapentin Tobacco use d/o -no interest in quitting, declined NRT, cessation encouraged Venous thromboembolism prophylaxis Bilateral sequential compression. Patient not taking Xarelto. Venous thromboembolism prophylaxis Patient on enoxaparin Diet Regular Diet as tolerated Code Status Full Code Medically Ready for Discharge:Anticipated in 2-4 Days * Consults - Rigoberto Land - 12/06/2024 4:25 PM EDT Pastoral Care Note The patient was attempted to be seen by pastoral care. Unable to asses due to off floor. Consulted care team, pastoral care remain available as needed. Patient Profile: Spiritual Assessment: Interventions: Pastoral Care Outcomes: * Progress Notes - Mariam Ramos RN - 12/06/2024 3:41 PM EDT Case Management Adult Initial Progress Note Guanako Brock 64 y.o. male CSN: [id number] Admission: 12/05/2024 7:20 PM Primary Problem: Pancreatic mass Client Representative reviewed chart and spoke with the patient at the bedside to complete this Initial CaseManagement Assessment. Patient verified information found in EPIC. Patient lives with his and adult grandson in a single level home, [address]. Patient is independent with ADLs and driving. Patient reports no DME, HH, HD or infusions. Patient states that his will transport him home at discharge. Patient doesn't have any insurance currently, and will not have insurance until December. Referral placed to financial counseling when patient was here 12/03-12/04. PCP: Raimundo Chirinos MD Emergency Contact: Extended Emergency Contact Information Primary Emergency Contact: VinodDebbie Mobile Relation: Spouse Preferred language: [place] Refuge Worker needed? No Insurance: Primary Coverage Payer Plan Sponsor Code Group Number Group Name No coverage found Patient information: Primary Caregiver: Self Support System: Immediate family Daily Living Activities: Functional Status: Independent Living Arrangements: Spouse/Significant other, Family Type of Residence: Private residence, Single Level [address] [place] [phone] Smoker in the Home?: Yes Current DME: Equipment Currently Used at Home: none Income Information: Income Source: Retired Income/Expense Information: Expenses exceed income Current Resources Utilized: None Housing Circumstances-Z Codes: Housing Circumstances (select all that apply): Low Income (101-300% Federal Poverty Guidlines) - Z596 Patient Referred to: Anticipated Discharge Date: TBD Patient's Discharge Goal: Patient/Family Anticipates Transition to: home Assistance Available at Discharge: family Discharge Transport: family Follow Up Transport: self Home Health / Home Infusion / Outpatient Dialysis Services: None Living Will/Advance Directive/Power of Hand Etcher /Guardian: Unable to assess: No Have you reviewed your Advance Directive and is it valid for this stay?: No Advance Directive: Patient would not like information Information Provided on Healthcare Directives: No Pre-existing DNR/DNI Order: No Patient Requests Assistance: No Additional Comments: CM will continue to follow and assist with discharge planning as needs arise. Mariam Ramos RN * Progress Notes - Rhianna Worthy 12/06/2024 11:15 AM EDT Occupational Therapy Evaluation Patient Name: Guanako Brock Today's Date: 12/06/2024 OT Discharge Recommendations: Home with assistance Equipment Recommended: Patient owns appropriate equipment History Guanako Brock is 64 y.o. male admitted 12/05/2024 for work-up of Pancreatic mass. Problem List Active Hospital Problems Diagnosis Date Noted Upper abdominal pain 12/06/2024 Pancreatic mass 12/05/2024 Past Medical History Patient has a past medical history of CHF (congestive heart failure) ([facility]), Coronary artery disease, Hypertension, Lower back pain, Numbness and tingling of both feet, and Spinal stenosis of lumbar region with neurogenic claudication (11/20/2021). Past Surgical History Patient has a past surgical history that includes Knee reconstruction, medial patellar femoral ligament (Left, 1969); Tonsillectomy; Lumbar laminectomy (Bilateral, 12/11/2021); and Coronary stent placement. Precautions Medical Precautions: Fall precautions Subjective Pt agreeable to session Participants in Care Family/Caregiver Present: No Refuge Worker: Not Applicable Presentation Oxygen Therapy: None (Room air) Lines and Tubes: Intravenous access Pre-Session: Supine, Lines intact Pre-Session Comments: RN consent to assessment Post-Session: Supine, Lines intact, RN notified, Call light in reach Post-Session Comments: All needs addressed Home Living/Set-up Lives With: Spouse (21 y/o grandson) Home Type: House Home Adaptive Equipment: None Home Layout: One level, Stairs to enter with rails Number of Stairs: 3 (also has ramp entry) Bathroom: Tub/Shower: Walk-in shower Bathroom: Toilet: Standard Prior Level of Function Receives Help From: No assist required prior to admission Level of Mobility: Ambulatory- community Mobility Hill: Independent gait without device History of Falls: No ADL Performance: Independent Patient/Family Goals Statement Pt would like to return home Objective Pain Pt does not report any pain at this time Delirium Screening Fernández Agitation Sedation Scale (RASS): Alert and calm Confusion Assessment Method-ICU (CAM-ICU/PCAM-ICU) Feature 3: Altered Level of Consciousness: Negative Cognition Overall Cognitive Status: Within Functional Limits Arousal/Alertness: Appropriate responses to stimuli Mood/Behavior: Alert Orientation Level: Oriented X4 Single Step Commands: Consistently Multi-Step Commands: Consistently Method of Communication: Verbal Right Upper Extremity Examination RUE ROM Assessment RUE Assessment: Within Functional Limits Manual Muscle Testing - RUE: Within functional limits Left Upper Extremity Examination LUE ROM Assessment LUE Assessment: Within Functional Limits Manual Muscle Testing - LUE: Within functional limits Right Lower Extremity Examination RLE ROM Assessment RLE Assessment: Within Functional Limits Manual Muscle Testing - RLE: Within functional limits Left Lower Extremity Examination LLE ROM Assessment LLE Assessment: Within Functional Limits Manual Muscle Testing: Within functional limits Bed Mobility Bed Mobility Exam: Scooting/Bridging Level of Hill: Independent Bed Mobility Exam: Supine to Sit Level of Hill: Modified Hill Bed Mobility Exam: Sit to Supine Level of Hill: Modified independence Functional Mobility Device: No device Assistance: Standby assist Distance : 250' Balance Postural Appearance Posture: Within Functional Limits Static Sitting Balance Static Sitting-Balance Support: Feet supported Static Sitting-Level of Assistance: Independent Dynamic Sitting Balance Dynamic Sitting-Balance Support: Feet supported Dynamic Sitting-Balance: Anterior/Posterior weight shifts, Lateral weight shifts Level of Assistance: Independent Static Standing Balance Static Standing-Balance Support: No upper extremity supported Static Standing-Level of Assistance: Supervision Dynamic Standing Balance Dynamic Standing-Balance Support: No upper extremity support Dynamic Standing-Balance: Lateral weight shifts, Anterior/Posterior weight shifts, Reaching for objects, Reaching across midline Dynamic Standing Level of Assistance: Standby assist Self-Care Interventions UE Dressing UE Dressing Level of Assistance: Independent Lower Extremity Dressing Pants Level of Assistance: Independent Sock Level of Assistance: Independent Shoe Level of Assistance: Independent Toileting Toileting Level of Assistance: Independent Standardized Assessments [facility] 6-Click Daily Activities Help from Other: Don/Doff Regular Lower Body Clothings: None Help From Other: Bathing: None Help From Other: Toileting: None Help From Other: Don/Doff Upper Body Clothings: None Help From Other: Grooming: None Help From Other: Eating Meals: None [facility] 6 Click - Daily Activities Score: 24 Assessment Pt was able to benefit from skilled OT services on this date. Pt demonstrated good effort and understanding throughout session. OT provided education to pt on energy conservation techniques as he faces increased levels of fatigue or pain in order to reduce risk of falling. Pt is at baseline level of function for all ADLs and functional mobility and does not require skilled OT services. OT recommends that Pt be discharged home with assistance as needed at this time. OT Findings: Impaired functional mobility Evaluation/Treatment Tolerance: Patient limited by pain Barriers to Discharge: Comorbidities Eval Complexity Occupational Profile: Brief history including review of medical/therapy records relating to presenting problem Performance Deficits: Body functions, Body structures Clinical Decision Making: Low Overall Eval complexity: Low OT Recommendations Discharge Destination: Home with assistance Discharge Equipment: Patient owns appropriate equipment Plan Patient no longer demonstrates need for inpatient occupational therapy services. Patient to be discharged from occupational therapy. Written by Rhianna Worthy on 12/06/24 at 12:10 PM. * Progress Notes - Aliyah Freed - 12/06/2024 11:14 AM EDT Physical Therapy Evaluation and Discharge Patient Name: Guanako Brock Today's Date: 12/06/2024 PT Discharge Recommendations: Home with assistance, Outpatient PT Equipment Recommended: None History Guanako Brock is 64 y.o. male admitted 12/05/2024 for work-up of Pancreatic mass. Problem List Active Hospital Problems Diagnosis Date Noted Pancreatic mass 12/05/2024 Past Medical History Patient has a past medical history of CHF (congestive heart failure) ([facility]), Coronary artery disease, Hypertension, Lower back pain, Numbness and tingling of both feet, and Spinal stenosis of lumbar region with neurogenic claudication (11/20/2021). Past Surgical History Patient has a past surgical history that includes Knee reconstruction, medial patellar femoral ligament (Left, 1969); Tonsillectomy; Lumbar laminectomy (Bilateral, 12/11/2021); and Coronary stent placement. Precautions Medical Precautions: Fall precautions Subjective Patient reports he was able to walk to the shower earlier this morning without trouble. Denies new complaints or concerns regarding mobility. Participants in Care Family/Caregiver Present: No Refuge Worker: Not Applicable Presentation Oxygen Therapy: None (Room air) Lines and Tubes: Intravenous access Pre-Session: Supine, Lines intact Pre-Session Comments: RN consent to assessment Post-Session: Supine, Lines intact, RN notified, Call light in reach Post-Session Comments: All needs addressed Home Living/Set-up Lives With: Spouse (21 y/o grandson) Home Type: House Home Adaptive Equipment: None Home Layout: One level, Stairs to enter with rails Number of Stairs: 3 (also has ramp entry) Bathroom: Tub/Shower: Walk-in shower Bathroom: Toilet: Standard Prior Level of Function Receives Help From: No assist required prior to admission Level of Mobility: Ambulatory- community Mobility Hill: Independent gait without device History of Falls: No ADL Performance: Independent Patient/Family Goals Return home with family. Objective Pain Denies pain at this time - reports pain medication was recently provided. Delirium Screening Fernández Agitation Sedation Scale (RASS): Alert and calm Confusion Assessment Method-ICU (CAM-ICU/PCAM-ICU) Feature 3: Altered Level of Consciousness: Negative Cognition Overall Cognitive Status: Within Functional Limits Arousal/Alertness: Appropriate responses to stimuli Mood/Behavior: Alert Orientation Level: Oriented X4 Single Step Commands: Consistently Multi-Step Commands: Consistently Method of Communication: Verbal Right Upper Extremity Examination RUE Assessment: Within Functional Limits Manual Muscle Testing - RUE: Within functional limits Left Upper Extremity Examination LUE ROM Assessment LUE Assessment: Within Functional Limits Manual Muscle Testing - LUE Manual Muscle Testing - LUE: Within functional limits Right Lower Extremity Examination RLE ROM Assessment RLE Assessment: Within Functional Limits Manual Muscle Testing - RLE Manual Muscle Testing - RLE: Within functional limits Left Lower Extremity Examination LLE Assessment: Within Functional Limits Manual Muscle Testing: Within functional limits Bed Mobility Bed Mobility Exam: Scooting/Bridging Level of Hill: Independent Bed Mobility Exam: Supine to Sit Level of Hill: Modified Hill Assistive Device: Bed rails Bed Mobility Exam: Sit to Supine Level of Hill: Modified independence Assistive Device: Bed rails Transfers Transfer Exam: Sit to stand Level of Hill: Stand-by assist Physical/Nonphysical Assist: Supervision Transfer Exam: Stand to Sit Level of Hill: Stand-by assist Physical/Nonphysical Assist: Supervision Ambulation Device: No device Assistance: Standby assist Distance : 250' Ambulation Comments: Normal reciprocal gait with x1-2 lateral unsteadiness without true LOB. SBA for safety due to unsteadiness and occasional cues for obstacle awareness. Balance Postural Appearance Posture: Within Functional Limits Static Sitting Balance Static Sitting-Balance Support: Feet supported Static Sitting-Level of Assistance: Independent Dynamic Sitting Balance Dynamic Sitting-Balance Support: Feet supported Dynamic Sitting-Balance: Anterior/Posterior weight shifts, Lateral weight shifts Level of Assistance: Independent Static Standing Balance Static Standing-Balance Support: No upper extremity supported Static Standing-Level of Assistance: Supervision Dynamic Standing Balance Dynamic Standing-Balance Support: No upper extremity support Dynamic Standing-Balance: Lateral weight shifts, Anterior/Posterior weight shifts, Reaching for objects, Reaching across midline Dynamic Standing Level of Assistance: Standby assist Standardized Assessments [facility] 6-Clicks Mobility Assessment Difficulty patient has turning over in bed (including adjusting bedclothes, sheets, and blankets)?:None Difficulty patient has sitting down on and standing up from a chair with arms (wheelchair, bedside commode, etc.)?: None Difficulty patient has moving from lying on back to sitting on the side of the bed?: None How much help does the patient need moving to and from a bed to a chair (including a wheelchair)?: None How much help does the patient need to walk in hospital room?: A little How much help does the patient need climbing 3-5 steps with a railing?: A little [facility] 6-Clicks Mobility Assessment Total : 22 No data recorded Assessment Patient participated in today's assessment well without adverse response or event. Demonstrates ability to perform all necessary functional mobility tasks with supervision without need for an assistive device. Patient reports to have assist at home if needed at discharge. May benefit from follow upwith OP PT services to optimize functional capacity and strength given new diagnosis and overall change in medical status. No further inpatient PT needs are indicated at this time. Please re-consult for any new changes or concerns. Impairments: Impaired balance Activity Limitations: Inability to ambulate independently Participation Restrictions: Self-care, Home management, Community leisure Activity Tolerance: Endurance does not limit participation in activity, Sitting, Standing, Walking Barriers to Discharge: Comorbidities Eval Complexity History Profile: 1 - 2 personal factors and/or comorbidities Clinical Presentation: Evolving clinical presentation with changing characteristics Clinical Decision Making: Low complexity PT Recommendations Discharge Destination: Home with assistance, Outpatient PT Discharge Equipment: None Plan Patient no longer demonstrates need for inpatient physical therapy services. Patient to be discharged from physical therapy. Written by Aliyah Freed on 12/06/24 at 11:35 AM. * Consults - Bridgett Valverde RD - 12/06/2024 10:10 AM EDTAssociated Order(s): IP CONSULT TO NUTRITION SERVICES Adult Nutrition Evaluation Note Guanako Brock 64 y.o. male CSN: [id number] Room/Bed 732/732A Nutrition evaluation type: assessment Reason for evaluation: provider consult Hospital course: Pt is a 64 y.o. male who presented to the ED on 12/05 with LUQ pain associated withN/V x [address] imaging revealed acute pancreatitis, new pancreatic head mass, and dilated biliary tree with double duct sign concerning for malignancy. Past medical/ surgical history: Past Medical History[1] Surgical History[2] Social history: tobacco, THC use Additional comments: 12/06: Pt seen at bedside. Reported reduced PO intakes associated with N/V over the past two weeks and a 15#/9.3% wt loss during this time (severe). Pt reported the flavor profile and taste of foods has been off recently making it difficult to eat. Pt stated occasional N/V with meals but it did not happen with every meal or with all foods. Pt reported tolerating a few bites of breakfast this AM without N/V. Pt declined supplements at this time. No questions/concerns voiced at visit. Vitals and Basic Assessment: BP: 101/69 Temp: 36.8 ??C (98.3 ??F) Oxygen Therapy: None (Room air) Ananda Coma Scale Score: 15 Lisandro Scale Score: 21 Most Recent BM Date: 12/05/24 GI Symptoms: Other (Comment) (pain) Skin: intact Allergies: NKFA per EMR Medications: Current Scheduled Medications[3] Current PRN Medications[4] Meds were reviewed: Yes Labs: Lab Results Component Value Date GLUCOSE 170 (H) 12/06/2024 CALCIUM 7.7 (L) 12/06/2024 NA 141 12/06/2024 K 3.9 12/06/2024 CO2 21 (L) 12/06/2024 CL 112 (H) 12/06/2024 BUN 19 12/06/2024 CREATININE 1.00 12/06/2024 MG 2.2 12/05/2024 HGBA1C 6.3 (H) 12/03/2024 Lab Results Component Value Date ALBUMIN 3.1 (L) 12/06/2024 Albumin is a negative acute-phase reactant, therefore it is not a good indicator of nutrition status. Anthropometrics: Height: 170.2 cm (5' 7 ) Weight: 73.2 kg (161 lb 6 oz) BMI (Calculated): 25.27 Weight Evaluation: Overweight (BMI 25-29.9) [place] Body Weight (kg): 67.3 Percent [place] Body Weight: 109 Wt Readings from Last 10 Encounters: 12/05/24 73.2 kg (161 lb 6 oz) 12/04/24 73.4 kg (161 lb 13.1 oz) 03/10/22 82.9 kg (182 lb 12.2 oz) 01/21/22 86.2 kg (190 lb) 01/07/22 90.7 kg (200 lb) 01/01/22 90.7 kg (200 lb) 12/23/21 90.7 kg (200 lb) 12/09/21 90.7 kg (200 lb) 11/18/21 86.2 kg (190 lb) - reported 15#/9.3% wt loss x 2 weeks ELEMENTARY ASSISTANT PRINCIPAL (severe if accurate) Estimated Needs: Kcal/ K-30 Kcal Provided: 9613-2406 Kcal Needs Based On: [place] weight (67.3 kg) Gm Protein/ Kg : 1.2-1.5 Protein Provided: 81-101 Protein Needs Based On: [place] weight (67.3 kg) Fluid Provided: 1 ml/kcal or per MD team Metabolic Cart Study Results: Current Nutrition Intake: Diet Supplements: None Diet Order: Adult Diet Diet Texture: Regular Percent Meals Eaten (%): Establishing Diet Experience and Nutrition History: Diet Education Provided: Will monitor Pertinent home medications: Lasix, gabapentin, potassium chloride Anglican needs: Nutrition Focused Physical Exam: Physical exam performed on (date): 12/06 Temples (muscles): None Clavicle (muscle): None Shoulder (muscle): None Interosseous (muscle): None Orbital (fat): None Triceps (fat): None Energy Intake: PO intakes likely <75% est needs x 2 weeks Weight Loss: 15#/9.3% wt loss x 2 weeks Assessment of Malnutrition: Malnutrition Identified: Yes Meets Criteria For: Moderate malnutrition In Context Of: Acute illness/ injury Based On: Moderately reduced energy intake, Severe weight loss Present on Admission: Yes Nutrition Problem: Inadequate energy intake related to acute pancreatitis as evidenced by N/V, decreased PO intakes x 2 weeks, 15#/9.3% wt loss x 2 weeks ELEMENTARY ASSISTANT PRINCIPAL. Status of Nutrition Diagnosis: New Nutrition Interventions and Recommendations: Continue Regular diet as tolerated to encourage PO. Add Low Fat restriction for GI tolerance if symptoms worsen. Declined supplements at this time. Recommend multivitamin with minerals x1 daily given poor PO intakes. Monitor wt 1-2x weekly. Nursing: please document all PO intakes in the I/Os section of Flowsheets daily. Nutrition Monitoring and Goals: Pt will tolerate >50% meal intakes + ONS. Pt will maintain wt during admission. Will monitor PO intake, weight, skin, labs, nutrition status per acuity. Acuity Level: [address], MS, LD [1] Past Medical History: Diagnosis Date CHF (congestive heart failure) (CMS/HCC) Coronary artery disease Hypertension Lower back pain Numbness and tingling of both feet Spinal stenosis of lumbar region with neurogenic claudication 11/20/2021 Added automatically from request for surgery [id number] [2] Past Surgical History: Procedure Laterality Date CORONARY STENT PLACEMENT KNEE RECONSTRUCTION, MEDIAL PATELLAR FEMORAL LIGAMENT Left 1969 LUMBAR LAMINECTOMY Bilateral 12/11/2021 Posterolateral arthrodesis L3-L4, L4-L5, L5-S1; L4-L5 discectomy and TLIF by Dr. Mcnally TONSILLECTOMY [3] enoxaparin, 40 mg, Subcutaneous, Daily gabapentin, 1,200 mg, Oral, Daily [COMPLETED] Insert peripheral IV, , , Once AND [COMPLETED] Saline lock IV, , , Once AND sodium chloride, 10 mL, Intravenous, q12h AND sodium chloride, 10 mL, Intravenous, PRN [4] PRN medications: morphine, ondansetron ODT OR ondansetron OR ondansetron, oxyCODONE, [COMPLETED] Insert peripheral IV AND [COMPLETED] Saline lock IV AND sodium chloride AND sodium chloride * Consults - Keara Tovar MD - 12/06/2024 9:30 AM EDTAssociated Order(s): IP CONSULT TO GASTROENTEROLOGY Gastroenterology Consult Note Reason for Consult: Pancreatic mass HPI Guanako Brock is a 64 y.o. male with a PMH of chronic HFpEF (last EF 45-60%), pAfib (no AC), CADs/p stents x8, HTN, tobacco use disorder who was transferred from OSH for concern of pancreatic head mass. Patient endorses at least 2 weeks of progressively worsening abdominal pain, n/v, inability to take PO. He was just seen 2 days ago by our service but left the hospital AMA. He has returned now with same complaints of abdominal pain, n/v, inability to tolerate po. He had labs and imaging which appeared consistent with acute pancreatitis and imaging showed acute pancreatitis, pancreatic head mass, dilated biliary tree with double duct sign concerning for malignancy. Patient states that hehas always had stomach issues but is unable to further elaborate on what that means. He states thathe may have had ongoing symptoms for longer than 2 weeks but he didn't notice. He reports the abdominal pain to be epigastric in nature and constant. After he left the hospital the pain became unbearable which is why he returned. Unsure if there are exacerbating or relieving features to it. Does bel ieve he has lost about 15 lbs. Has family history in sister of colon cancer. Is an active smoker and has been smoking for over 50 years between 1-2 ppd. Used to be a heavy drinker but has not drank since the early . Denies illicit drug use. Denies any hematemesis, fevers/chills. Labs without leukocytosis, stable hgb, Lipase still elevated at 599, AST 25, ALT 34, TB 0.9, ALP 68. MRCP ordered. ROS All systems reviewed and negative unless otherwise noted in HPI. Past Medical History[1] Surgical History[2] Family History[3] Social History[4] Objective Vitals: 12/06/24 0009 12/06/24 0434 12/06/24 0757 12/06/24 0757 BP: 136/88 101/68 128/84 BP Location: Left arm Right arm Patient Position: Lying Lying Pulse: 60 81 102 100 Resp: 16 16 Temp: 36.8 ??C (98.2 ??F) 36.9 ??C (98.5 ??F) 36.6 ??C (97.8 ??F) TempSrc: Oral Oral SpO2: 96% 94% 95% 94% Weight: Height: BMI: Body mass index is 25.28 kg/m??. Physical Exam: General Awake, NAD Eyes EOMI, sclera anicteric Head NC/AT ENT OP moist. Hearing grossly normal. CV Warm and well perfused RES Equal chest rise, normal effort GI Soft painful to palpation in epigastric region CLEMENTE AAOx4. No gross deficits. EXT No cyanosis. No edema Skin No visible skin lesions PSY Appropriate mood and affect I/O: No intake/output data recorded. No intake/output data recorded. Labs: CBC: Results from last 7 days Lab Units 12/06/24 0545 12/05/24200712/03/24 2318 WBC 10*3/uL 7.69 10.84* 10.98* HEMOGLOBIN g/dL 13.7 15.9 16.1 HEMATOCRIT % 41.4 47.8 47.7 PLATELETS 10*3/uL 205 235 251 CMP: Results from last 7 days Lab Units 12/06/24 0545 12/05/24200712/03/24 2318 SODIUM mmol/L 141 139 131* POTASSIUM mmol/L 3.9 3.9 3.8 CHLORIDE mmol/L 112* 103 100 CO2 mmol/L 21* 24 25 BUN mg/dL 19 21 19 CREATININE mg/dL 1.00 1.12 1.21* CALCIUM mg/dL 7.7* 9.2 9.0 BILIRUBIN TOTAL mg/dL 0.9 1.6* 1.6* ALKALINE PHOSPHATASE U/L 68 85 82 ALT U/L 34 49 43 AST U/L 25 33 42 GLUCOSE mg/dL 170* 126* 153* Microbiology/Abx: Results No results found for the last 48 hours. Imaging: @IMAGES@ Medications (scheduled): Current Scheduled Medications[5] Medications (continous): Current Continuous Medications[6] Medications (PRN): Current PRN Medications[7] Assessment and Plan Guanako Brock is a 64 y.o. male with a PMH of chronic HFpEF (last EF 45-60%), pAfib (no AC), CADs/p stents x8, HTN, tobacco use disorder on whom we were consulted for concern of pancreatic head mass. #Acute pancreatitis #Pancreatic head mass #Dilated biliary tree - Patient with several weeks of progressively worsening abdominal pain, n/v, inability to tolerate po, weight loss - Presented to OSH with imaging concerning for acute pancreatitis, pancreatitic head mass, double duct sign concerning for malignancy - Currently AF, HDS - MRCP ordered by primary on admission, not completed Recommendations - We recommend Moderate Fluid Resuscitation: Infusion 1.5 ml/kg/hr for acute pancreatitis - MRCP ordered and to be completed, will follow results - Currently without signs of underlying infection, continue to monitor and complete infectious workup - Advance diet as tolerated and pain control per primary - Would not recommend endoscopic procedure until resolution/improvement of pancreatitis. If remainsinpatient would likely be next week at the earliest. Staffed w/ attending: Dr Bonilla and Dr Jaramillo Thank you for allowing us to participate in this patient's care. Please do not hesitate to call or page with questions or concerns. Keara Tovar MD PGY-4 Gastroenterology Fellow [facility] Pager: [phone] [1] Past Medical History: Diagnosis Date CHF (congestive heart failure) (CMS/HCC) Coronary artery disease Hypertension Lower back pain Numbness and tingling of both feet Spinal stenosis of lumbar region with neurogenic claudication 11/20/2021 Added automatically from request for surgery [id number] [2] Past Surgical History: Procedure Laterality Date CORONARY STENT PLACEMENT KNEE RECONSTRUCTION, MEDIAL PATELLAR FEMORAL LIGAMENT Left 1969 LUMBAR LAMINECTOMY Bilateral 12/11/2021 Posterolateral arthrodesis L3-L4, L4-L5, L5-S1; L4-L5 discectomy and TLIF by Dr. Mcnally TONSILLECTOMY [3] Family History Problem Relation Name Age of Onset Cancer Sister [4] Social History Tobacco Use Smoking status: Every Day Current packs/day: 0.50 Average packs/day: 0.5 packs/day for 48.0 years (24.0 ttl pk-yrs) Types: Cigarettes Smokeless tobacco: Never Vaping Use Vaping status: Never Used Substance Use Topics Alcohol use: Never Drug use: Yes Frequency: 3.0 times per week Types: Marijuana Comment: every two or three days [5] enoxaparin, 40 mg, Subcutaneous, Daily gabapentin, 1,200 mg, Oral, Daily sodium chloride, 10 mL, Intravenous, q12h [6] [7] PRN medications: morphine, ondansetron ODT OR ondansetron OR ondansetron, oxyCODONE, [COMPLETED] Insert peripheral IV AND [COMPLETED] Saline lock IV AND sodium chloride AND sodium chloride Cosigned by Pedro Bonilla MD at 12/06/2024 4:33 PM EDT Associated attestation - Pedro Bonilla MD - 12/06/2024 4:33 PM EDT I saw and evaluated the patient with the resident/fellow. I discussed the case with the resident/fellow and agree with the findings and plan as documented. * Care Plan - Naheed Garay RN - 12/06/2024 3:17 AM EDT Problem: Adult Inpatient Plan of Care Goal: Plan of Care Review Outcome: Ongoing, Progressing Flowsheets (Taken 12/06/2024311) Progress: no change Plan of Care Reviewed With: patient spouse Goal: Patient-Specific Goal (Individualized) Outcome: Ongoing, Progressing Flowsheets (Taken 12/05/2024 4662) Patient/Family-Specific Goals (Include Timeframe): Get the MRI done Individualized Care Needs: Fall prevention Anxieties, Fears or Concerns: Just waiting to find out what is wrong and fix it Goal: Absence of Hospital-Acquired Illness or Injury Outcome: Ongoing, Progressing Intervention: Identify and Manage Fall Risk Flowsheets (Taken 12/06/2024311) Safety Promotion/Fall Prevention: activity supervised lighting adjusted room organization consistent safety round/check completed Intervention: Prevent Skin Injury Flowsheets (Taken 12/06/2024311) Body Position: weight shifting Goal: Optimal Comfort and Wellbeing Outcome: Ongoing, Progressing Intervention: Monitor Pain and Promote Comfort Flowsheets (Taken 12/06/2024311) Pain Management Interventions: medication (see MAR) emotional support pain management plan reviewed with patient/caregiver pillow support provided quiet environment facilitated rest Intervention: Provide Person-Centered Care Flowsheets (Taken 12/06/2024311) Trust Relationship/Rapport: care explained choices provided emotional support provided empathic listening provided thoughts/feelings acknowledged reassurance provided questions encouraged questions answered Goal: Readiness for Transition of Care Outcome: Ongoing, Progressing Intervention: Mutually Develop Transition Plan Flowsheets (Taken 12/06/2024311) Equipment Currently Used at Home: none Transportation Concerns: none Concerns to be Addressed: no discharge needs identified Patient/Family Anticipated Services at Transition: none Patient/Family Anticipates Transition to: home Problem: Pain Acute Goal: Optimal Pain Control and Function Outcome: Ongoing, Progressing Intervention: Optimize Psychosocial Wellbeing Flowsheets (Taken 12/06/2024311) Supportive Measures: active listening utilized decision-making supported goal-setting facilitated positive reinforcement provided self-care encouraged verbalization of feelings encouraged Diversional Activities: television Intervention: Develop Pain Management Plan Flowsheets (Taken 12/06/2024311) Pain Management Interventions: medication (see MAR) emotional support pain management plan reviewed with patient/caregiver pillow support provided quiet environment facilitated rest Intervention: Prevent or Manage Pain Flowsheets (Taken 12/06/2024311) Sensory Stimulation Regulation: care clustered lighting decreased television on Bowel Elimination Promotion: adequate fluid intake promoted ambulation promoted privacy promoted Sleep/Rest Enhancement: noise level reduced regular sleep/rest pattern promoted Medication Review/Management: medications reviewed high-risk medications identified * H&P - Chan Antony MD - 12/05/2024 11:56 PM EDTAssociated Order(s): Consult to [facility] Images from the original note were not included. Consult to [facility] Consult performed by: Chan Antony MD Consult ordered by: Raysa Jean Baptiste PA Reason for consult: Admission Subjective Chief complaint Abdominal pain History Of Present Illness Guanako Brock is a 64 y.o. male with past history of chronic HFpEF (last EF 45-60%), pAfib (no AC), CAD s/p stents x8, HTN, smoker, and neuropathy presented to [facility] ER with the same symptoms that he was originally admitted for on 12/04. On 12/04 he was admitted for work up of his pancreatic mass, he had some concerns about insurance and left AMA. He is presenting again for the same reasons. Sincehe has been home his pain is ongoing. Of note, he was originally admitted after being transferred from [facility] on 12/04 for onset 2 weeks ago of LUQ pain with nausea/vomiting worsening over the last few days. Patient presented previously to local ED with VSS. WBC 11, lipase 1876, Tbili 1.9, AST/ALT and ALP normal. CT imaging demonstrated acute pancreatitis, new pancreatic head mass, and dilated biliary tree with double duct sign concerning for malignancy. Patient endorses waxing/waning epigastric/LUQ pain, 10/10 at its worst, currently rates the pain 2/10 with administration of pain medications. He had associated nausea with nonbilious, nonbloody emesis. Loss of appetite, poor by mouth intake, and reported weight loss of 15 lb in roughly the past couple of weeks. Symptoms worse with solid food intake, nothing helps. No history of similar presentation in the past. Smokes 1 PPD. Denies alcohol use or illicit drug use. No FH of pancreatitis, liver disease, or GI related cancer. Denies fever, chills, URI symptoms, cough, shortness of air, hematemesis, blood in stool, dysuria, hematuria, headache, dizziness, confusion. Afebrile, other VSS on arrival. Repeat labs WBC 10.84, Hgb 15.9, Na 139, Cr 1.12, T bili 1.6, AST/ALT 33/49, ALP 85, and lipase elevated to 599. ED administered morphine IV, zofran IV, at consulted to admit. Medical/Surgical/Social/Family History Past Medical History[1] Surgical History[2] Social History[3] Family History[4] Travel History Relevant International Travel History: Travel Screening Question Response Have you been in contact with someone who was sick? No / Unsure Do you have any of the following new or worsening symptoms? None of these Have you traveled internationally or domestically in the last month? No Travel History Travel since 11/04/24 No documented travel since 11/04/24 Relevant Domestic Travel History: Reviewed Immunizations VACCINE / DOSE Flu Tetanus Pneumovax Shingles Allergies Atorvastatin Outpatient medications in system Home Medications[5] Medications ordered for hospitalization Current Scheduled Medications[6] Current Continuous Medications[7] Current PRN Medications[8] Objective Review of Systems Constitutional: Positive for appetite change, chills and unexpected weight change. Negative for fever. Respiratory: Negative for chest tightness and shortness of breath. Cardiovascular: Negative for chest pain. Gastrointestinal: Positive for abdominal pain, nausea and vomiting. Physical Exam Vitals and nursing note reviewed. Constitutional: Appearance: Normal appearance. He is well-developed. HENT: Head: Normocephalic and atraumatic. Mouth/Throat: Mouth: Mucous membranes are moist. Pharynx: No oropharyngeal exudate or posterior oropharyngeal erythema. Eyes: General: No scleral icterus. Conjunctiva/sclera: Conjunctivae normal. Pupils: Pupils are equal, round, and reactive to light. Cardiovascular: Rate and Rhythm: Normal rate and regular rhythm. Pulses: Normal pulses. Heart sounds: Normal heart sounds. Pulmonary: Effort: Pulmonary effort is normal. Abdominal: Tenderness: There is abdominal tenderness. Comments: Tenderness in the epigastric region Musculoskeletal: General: Normal range of motion. Cervical back: No tenderness. Right lower leg: No edema. Left lower leg: No edema. Lymphadenopathy: Cervical: No cervical adenopathy. Skin: General: Skin is warm and dry. Neurological: Mental Status: He is alert and oriented to person, place, and time. Psychiatric: Thought Content: Thought content normal. Judgment: Judgment normal. Last Recorded Vitals Blood pressure (!) 153/103, pulse 100, temperature 36.9 ??C (98.4 ??F), resp. rate 16, height 1.702m (5' 7 ), weight 73.2 kg (161 lb 6 oz), SpO2 94%. Results Review {Vanishing Link Review Results :[id number] I have reviewed the latest lab and imaging results. Assessment & Plan Pancreatic mass Acute pancreatitis, new pancreatic head mass -worsening epigastric/LUQ pain with nausea/vomiting, unintentional wt loss past 2 weeks -OSH Tbili 1.9, lipase 1876 -OSH CT findings of acute pancreatitis, new pancreatic head mass, and dilated biliary tree with double duct sign concerning for malignancy. -afebrile, no leukocytosis, lactate 1.1 -Tbili 1.6 with normal AST/ALT, ALP -lipase 599, TG 63 PLAN -Patient wants to trial regular diet, MIVF -MRCP W/WO ordered -morphine 4 mg q4h PRN, senna 17.2 mg at bedtime -ondansetron 4 mg IV q6h PRN -Consult GI in AM -Obtain CA 19-9 Chronic HFpEF CAD s/p 8 stents (last in 2020) pAfib -ECHO 05/19/2021: LVEF is variable d/t arrhythmia, but is visually estimated at 45 - 60%. -NTproBNP 2,880 -Home regimen: not taking Xarelto, Zebeta, ?statin intolerant -Discussed with patient, he took himself off of all his Afib medications. He has no interest in restarting them, discussed risks and benefits. PLAN -EKG, CXR, and ECHO ordered -2g Na diet, daily weight -keep potassium >4, magnesium >2 -defer to Primary re: resuming Xarelto, BB ELDER likely 2/2 hypovolemia -improving -Cr 1.12 down from 1.21 -> unknown baseline Cr PLAN -UA, urine studies -bladder scan once for PVR -gently hydrate, monitor for volume overload -avoid NSAIDS/Nephrotoxins, renally dose meds based on EGFR -strict I/O, trend Cr Neuropathy/chronic pain -Jose Martin reviewed, continue home gabapentin Tobacco use d/o -no interest in quitting, declined NRT, cessation encouraged Venous thromboembolism prophylaxis Bilateral sequential compression. Patient not taking Xarelto. Venous thromboembolism prophylaxis Patient on enoxaparin Diet Dietary Orders (From admission, onward) Start Ordered 12/05/24 0936 Adult diet Diet texture: Regular Diet effective now References: IDDSI Diet Texture Guide Question: Diet texture Answer: Regular 12/05/24 2300 Code Status Full Code [1] Past Medical History: Diagnosis Date CHF (congestive heart failure) (CMS/HCC) Coronary artery disease Hypertension Lower back pain Numbness and tingling of both feet Spinal stenosis of lumbar region with neurogenic claudication 11/20/2021 Added automatically from request for surgery [id number] [2] Past Surgical History: Procedure Laterality Date CORONARY STENT PLACEMENT KNEE RECONSTRUCTION, MEDIAL PATELLAR FEMORAL LIGAMENT Left 1969 LUMBAR LAMINECTOMY Bilateral 12/11/2021 Posterolateral arthrodesis L3-L4, L4-L5, L5-S1; L4-L5 discectomy and TLIF by Dr. Mcnally TONSILLECTOMY [3] Social History Tobacco Use Smoking status: Every Day Current packs/day: 0.50 Average packs/day: 0.5 packs/day for 48.0 years (24.0 ttl pk-yrs) Types: Cigarettes Smokeless tobacco: Never Vaping Use Vaping status: Never Used Substance Use Topics Alcohol use: Never Drug use: Yes Frequency: 3.0 times per week Types: Marijuana Comment: every two or three days [4] Family History Problem Relation Name Age of Onset Cancer Sister [5] Medications Prior to Admission Medication Sig Dispense Refill furosemide (Lasix) 40 MG tablet Take 40 mg by mouth 1 (one) time each day if needed. (Patient taking differently: Take 2 tablets by mouth every other day.) gabapentin (Neurontin) 300 MG capsule Take 1 capsule by mouth 4 times a day. (Patient taking differently: Take 4 capsules by mouth daily. Patient takes 4 capsules at once every day.) potassium chloride CR (Klor-Con M20) 20 MEQ ER tablet Take 20 mEq by mouth 1 (one) time each day. With furosemide (Patient taking differently: Take 2 tablets by mouth every other day. With furosemide) [6] enoxaparin, 40 mg, Subcutaneous, Daily [START ON 12/06/2024] gabapentin, 1,200 mg, Oral, Daily sodium chloride, 10 mL, Intravenous, q12h [7] [8] PRN medications: morphine, oxyCODONE, Insert peripheral IV AND Saline lock IV AND sodium chloride AND sodium chloride * ED Provider Notes - Raysa Jean Baptiste PA - 12/05/2024 6:22 PM EDT Images from the original note were not included. - HPI Chief Complaint Patient presents with Abdominal Pain The patient is a 64-year-old white male with a history of smoking, atrial fibrillation (nonmedicated, negative blood thinner), CAD, hypertension, chronic back pain that was transferred here on 12/03/2024 for a two week history of epigastric/LUQ abdominal pain that radiated to RUQ with findings of acute pancreatitis, pancreatic head mass and double duct sign. He was transferred for GI consult and likely MRCP vs ERCP. Due to lack of insurance, he ultimately decided not to stay for admission. He returns tonight with continued pain, lack of appetite, weight loss of 15 lbs over the past 2 weeks and now wants to proceed with further workup of pancreatic mass. Patient History Past Medical History[1] Surgical History[2] Family History[3] Social History[4] Allergies: Allergies[5] Physical Exam ED Triage Vitals [12/05/24 1838] Temp Heart Rate Resp BP 36.4 ??C (97.6 ??F) 87 18 (!) 151/86 SpO2 Temp Source Heart Rate Source Patient Position 96 % Oral -- Sitting BP Location FiO2 (%) Right arm -- Physical Exam Ananda Coma Scale Score: 15 ED Course & MDM Lab Results Labs Reviewed COMPREHENSIVE METABOLIC PANEL, PLASMA - Abnormal Result Value Glucose, Plasma 126 (*) BUN, Plasma 21 Creatinine, Plasma 1.12 BUN/Creatinine Ratio 19 Sodium, Plasma 139 Potassium, Plasma 3.9 Chloride, Plasma 103 CO2, Plasma 24 Anion Gap 12 Total Calcium, Plasma 9.2 Total Protein 6.6 Albumin, Plasma 3.8 AST, Plasma 33 ALT, Plasma 49 Alkaline Phosphatase, Plasma 85 Total Bilirubin, Plasma 1.6 (*) eGFRcr 73.4 CBC WITH AUTO DIFFERENTIAL - Abnormal WBC Count 10.84 (*) RBC Count 5.59 HGB 15.9 HCT 47.8 Platelet Count 235 MCV 86 MCH 28.4 MCHC 33.3 RDW 16.7 (*) MPV 10.6 nRBC 0.0 Differential Type Automated Neutrophils % 82 Lymphocytes % 11 Monocytes % 6 Eosinophils % 1 Basophils % 0 Immature Granulocytes % 0 Neutrophils Absolute 8.81 (*) Lymphocytes Absolute 1.23 Monocytes Absolute 0.62 Eosinophils Absolute 0.10 Basophils Absolute 0.04 Immature Granulocytes Absolute 0.04 Narrative: Therapeutic decision making should be based on absolute values, rather than percentages. LIPASE, PLASMA - Abnormal Lipase, Plasma 599 (*) PROTHROMBIN TIME(PT) / INR - Abnormal Prothrombin Time 15.5 (*) INR 1.2 (*) Narrative: OPTIMAL INR RANGES FOR PATIENT ON ORAL ANTICOAGULANT THERAPY Prevention of venous thromboembolism INR 2.0 to 3.0 In patients with heart disease: Atrial fibrillation INR 2.0 to 3.0 Valvular heart disease INR 2.0 to 3.0 Tissue heart valves INR 2.0 to 3.0 Mechanical prosthetic valves INR 2.5 to 3.5 Prevention of recurrent PA INR 2.5 to 3.5 MAGNESIUM, PLASMA - Normal Magnesium, Plasma 2.2 LACTATE, VENOUS - Normal Lactate, Venous, Whole Blood 1.1 CBC WITH AUTO DIFFERENTIAL COMPREHENSIVE METABOLIC PANEL, PLASMA CANCER ANTIGEN, GI (CA 19.9) Imaging Results No orders to display - Assessment: 64 y.o. male presents to ED with complaint of continued upper abdominal pain, poor appetite, weightloss and known pancreatic head mass. It should be noted that the chronic conditions includes smoking, atrial fibrillation (nonmedicated, negative blood thinner), CAD, hypertension, chronic back pain,which currently is not at goal therapy. This complicates the clinical picture because it Comorbidities: may be exacerbating symptoms and increases the risk for morbidity Differential Diagnosis: pancreatic cancer, acute pancreatitis, FTT In order to fully explore the differential diagnosis the following treatments and tests were ordered: ED Medication Administration from 12/05/2024 1821 to 12/05/2024 2300 Date/Time Order Dose Route Action 12/05/20242007 EDT ondansetron (Zofran) injection 4 mg 4 mg Intravenous Given 12/05/20242008 EDT morphine PF 4 mg 4 mg Intravenous Given All Other Orders Ordered Status Ordering Provider 12/05/24 2300 CBC and Differential Morning draw Order ID Start Status Ordering Provider [id number] 12/06/24 0400 Acknowledged CHAN ANTONY 12/07/24 0400 Scheduled ERINCHAN 12/08/24 0400 Scheduled ERIN, CHAN Galvan 12/09/24 0400 Scheduled ERIN, CHAN Galvan 12/10/24 0400 Scheduled ERIN, CHAN Galvan 12/11/24 0400 Scheduled ERIN, CHAN Galvan 12/12/24 0400 Scheduled ERIN, CHAN Galvan Acknowledged ERIN, CHAN Galvan 12/05/24 2300 Comprehensive metabolic panel Morning draw Order ID Start Status Ordering Provider [id number] 12/06/24 0400 Acknowledged ERINCHAN ELLIS 12/07/24 0400 Scheduled ERIN, CHAN Galvan 12/08/24 0400 Scheduled ERIN, CHAN Galvan 12/09/24 0400 Scheduled ERIN, CHAN Galvan 12/10/24 0400 Scheduled ERIN, CHAN Galvan 12/11/24 0400 Scheduled ERIN, CHAN Galvan 12/12/24 0400 Scheduled ERINCHAN ELLIS Acknowledged CHAN ANTONY 12/05/242299 Vital Signs Every 4 hours Placed in And Linked Group Acknowledged ERIN CHAN Mandy 12/05/242299 Pulse Oximetry Every 4 hours Placed in And Linked Group Acknowledged ERIN, CHAN Mandy 12/05/242299 Cancer antigen 19-9 Once In process ERIN CHAN Galvan 12/05/242299 Okay To Give Nicotine Replacement Until discontinued Acknowledged CHAN ANTONY 12/05/242299 PT eval and treat Until therapy completed Acknowledged CHAN ANTONY 12/05/242299 OT eval and treat Until therapy completed Acknowledged ERIN, CHAN Mandy 12/05/242299 Nutrition Consult Once Comments: malnutrition Provider: (Not yet assigned) Acknowledged CHAN ANTONY 12/05/242299 Adult diet Diet texture: Regular Diet effective now Acknowledged CHAN ANTONY 12/05/242299 Full code Continuous Acknowledged CHAN ANTONY 12/05/242299 Admit to inpatient Once Completed CHAN ANTONY 12/05/242299 Mobility Orders Until discontinued Acknowledged CHAN ANTONY 12/05/242299 Notify physician (specify parameters) Until discontinued Acknowledged CHAN ANTONY 12/05/242299 Insert peripheral IV Once Placed in And Linked Group Completed CHAN ANTONY 12/05/242299 Saline lock IV Once Placed in And Linked Group Completed CHAN ANTONY 12/05/242054 Consult to [facility] Once Specialty: Internal Medicine Provider: (Not yet assigned) Completed RAYSA JEAN BAPTISTE 12/05/242054 ED to floor bed request Once Completed RAYSA JEAN BAPTISTE 12/05/241955 PT-INR STAT Final result RAYSA JEAN BAPTISTE 12/05/241955 Lipase STAT Final result RAYSA JEAN BAPTISTE 12/05/241955 Lactic acid, venous STAT Final result RAYSA JEAN BAPTISTE 12/05/241955 CMP STAT Final result RAYSA JEAN BAPTISTE 12/05/241955 Magnesium STAT Final result RAYSA JEAN BAPTISTE 12/05/241955 CBC w/diff STAT Final result RAYSA JEAN BAPTISTE ED Course as of 12/06/24 0402 TueDec 05, 20242017 WBC(!): 10.84 [LE] 2018 Neutrophils Absolute(!): 8.81 [LE] 2047 Lipase(!): 599 [LE] 2047 Total Bilirubin, Plasma(!): 1.6 [LE] ED Course User Index [LE] Raysa Jean Baptiste PA Clinical Impressions as of 12/06/24 0402 Upper abdominal pain Mass of head of pancreas Social Determinates of Health Risks (including Economic Stability, Education and level of understanding, Healthcare access and quality and concerning social factors): Uninsured or inadequate health insurance coverage Ultimately, this patient Was admitted (Admission) The primary encounter diagnosis was Upper abdominal pain. A diagnosis of Mass of head of pancreas was also pertinent to this visit.. Patient believed to require admission for the listed diagnoses. The Internal Medicine service was consulted for admission and was agreeable to admit to Acute Floor (Med/Surg). ED Prescriptions None Disposition Admit Admitting/Attending Physician: CHAN ANTONY [[id number]] Provider Care Team: [facility] 7 [208] Are they the primary team?: Yes [1] - [1] Past Medical History: Diagnosis Date CHF (congestive heart failure) (CMS/[facility]) Coronary artery disease Hypertension Lower back pain Numbness and tingling of both feet Spinal stenosis of lumbar region with neurogenic claudication 11/20/2021 Added automatically from request for surgery [id number] [2] Past Surgical History: Procedure Laterality Date CORONARY STENT PLACEMENT KNEE RECONSTRUCTION, MEDIAL PATELLAR FEMORAL LIGAMENT Left 1969 LUMBAR LAMINECTOMY Bilateral 12/11/2021 Posterolateral arthrodesis L3-L4, L4-L5, L5-S1; L4-L5 discectomy and TLIF by Dr. Mcnally TONSILLECTOMY [3] Family History Problem Relation Name Age of Onset Cancer Sister [4] Tobacco Use Smoking status: Every Day Current packs/day: 0.50 Average packs/day: 0.5 packs/day for 48.0 years (24.0 ttl pk-yrs) Types: Cigarettes Smokeless tobacco: Never Vaping Use Vaping status: Never Used Substance Use Topics Alcohol use: Never Drug use: Yes Frequency: 3.0 times per week Types: Marijuana Comment: every two or three days [5] Allergies Allergen Reactions Atorvastatin Hallucinations Happens with brand name only Raysa Jean Baptiste PA 12/06/24 0403 Cosigned by The, Padmini Mireles MD at 12/06/2024 5:53 PM EDT Associated attestation - Padmini Fitzpatrick MD - 12/06/2024 5:53 PM EDT The patient was seen only by Advanced Practice Provider (ANDREW), and care was reviewed with me. * ED Triage Notes - Anabela Melvin RN - 12/05/2024 6:22 PM EDT Patient c/o pain to abdomen d/t newly diagnosed pancreatic mass. Patient states he was admitted Tuesday for the mass to get an MRI when he found out he no longer had health insurance. Patient states he became worried about paying for his hospital bill and left AMA. documented in this encounter Plan of Treatment Upcoming Encounters Date Type Department Care Team (Late st Contact Info) Description 01/24/2025 8:30 AM EDT Office Visit [facility] Mult[facility]isciplinary Oncology Clinic [address] [place] [id number] Nito Balderas MD [address] [place] [id number] documented as of this encounter Procedures Procedure Name Priority Date/Time Associated Diagnosis Comments CBC WITH AUTO DIFFERENTIAL Routine 12/07/2024 3:38 AM EDT COMPREHENSIVE METABOLIC PANEL, PLASMA Routine 12/07/2024 3:38 AM EDT MRCP W AND WO IV CONTRAST Routine 12/06/2024 4:23 PM EDT CBC WITH AUTO DIFFERENTIAL Routine 12/06/2024 5:45 AM EDT COMPREHENSIVE METABOLIC PANEL, PLASMA Routine 12/06/2024 5:45 AM EDT CANCER ANTIGEN, GI (CA 19.9) Routine 12/05/2024 11:19 PM EDT LACTATE, VENOUS STAT 12/05/2024 8:08 PM EDT PROTHROMBIN TIME(PT) / INR STAT 12/05/2024 8:08 PM EDT CBC WITH AUTO DIFFERENTIAL STAT 12/05/2024 8:08 PM EDT MAGNESIUM, PLASMA STAT 12/05/2024 8:0 8 PM EDT LIPASE, PLASMA STAT 12/05/2024 8:08 PM EDT COMPREHENSIVE METABOLIC PANEL, PLASMA STAT 12/05/2024 8:08 PM EDT documented in this encounter Results * (ABNORMAL) Comprehensive metabolic panel (12/07/2024 3:38 AM EDT) Glucose, Plasma 122(H) 74 - 99 mg/dL 12/07/2024 4:25 AM EDT [facility] BUN, Plasma 18 8 - 23 mg/dL 12/07/2024 4:[address] [facility] Creatinine, Plasma 1.08 0.70 - 1.20 mg/dL 12/07/2024 4:25 AM EDT [facility] BUN/Creatinine Ratio 17 12/07/2024 4:25 AM EDT [facility] Sodium, Plasma 133(L) 136 - 145 mmol/L 12/07/2024 4:[address] [facility] Potassium, Plasma 4.2 3.6 - 4.9 mmol/L 12/07/2024 4:[address] [facility] Chloride, Plasma 103 97 - 107 mmol/L 12/07/2024 4:[address] [facility] CO2, Plasma 23 22 - 29 mmol/L 12/07/2024 4:25 AM EDT [facility] Anion Gap 7 6 - 16 mmol/L 12/07/2024 4:[address] [facility] Total Calcium, Plasma 8.5(L) 8.9 - 10.2 mg/dL 12/07/2024 4:[address] [facility] Total Protein 5.7(L) 6.3 - 7.9 g/dL 12/07/2024 4:[address] [facility] Albumin, Plasma 3.4(L) 3.5 - 5.2 g/dL 12/07/2024 4:[address] [facility] AST, Plasma 71(H) 10 - 50 U/L 12/07/2024 4:[address] [facility] ALT, Plasma 88(H) 10 - 50 U/L 12/07/2024 4:[address] [facility] Alkaline Phosphatase, Plasma 99 40 - 115 U/L 12/07/2024 4:[address] [facility] Total Bilirubin, Plasma 1.0 0.2 - 1.1 mg/dL 12/07/2024 4:[address] [facility] eGFRcr 76.6 mL/min/1.7 3m*2 12/07/2024 4:[address] [facility] Comment:Reported eGFRcr in m L/min/1.73m2 is based the CKD-EPI 2020 equation that does not use a race coefficient. Blood Venous blood specimen / Unknown Venipuncture / Unknown 12/07/2024 3:38 AM EDT 12/07/2024 3:54 AM EDT Chan Antony MD LAB BLOOD ORDERABLES Final Result [facility] [address] [place] [id number] * (ABNORMAL) CBC and Differential (12/07/2024 3:38 AM EDT) WBC Count 8.59 3.70 - 10.30 10*3/uL LAB HEMATOLOGY METHOD 12/07/2024 4:[address] [facility] RBC Count 4.93 4.60 - 6.10 10*6/uL LAB HEMATOLOGY METHOD 12/07/2024 4:[address] [facility] HGB 13.9 13.7 - 17.5 g/dL LAB HEMATOLOGY METHOD 12/07/2024 4:[address] [facility] HCT 42.7 40.0 - 51.0 % LAB HEMATOLOGY METHOD 12/07/2024 4:[address] [facility] Platelet Count 216 155 - 369 10*3/uL LAB HEMATOLOGY METHOD 12/07/2024 4:[address] [facility] MCV 87 79 - 98 fL LAB HEMATOLOGY METHOD 12/07/2024 4:[address] [facility] MCH 28.2 26.0 - 32.0 pg LAB HEMATOLOGY METHOD 12/07/2024 4:[address] [facility] MCHC 32.6 30.7 - 35.5 g/dL LAB HEMATOLOGY METHOD 12/07/2024 4:[address] [facility] RDW 16.8(H) 11.5 - 14.5 % LAB HEMATOLOGY METHOD 12/07/2024 4:[address] [facility] MPV 11.0 8.8 - 12.5 fL LAB HEMATOLOGY METHOD 12/07/2024 4:[address] [facility] nRBC 0.0 <=0.0 per 100 WBCs LAB [facility]Y [facility] Differential Type Automated LAB HEMATOLOGY METHOD 12/07/2024 4:[address] [facility] Neutrophils % 73 % LAB HEMATOLOGY METHOD 12/07/2024 4:[address] [facility] Lymphocytes % 17 % LAB [facility]OLOGY METHOD [facility]24 [facility] Monocytes % 7 % LAB HEMATOLOGY METHOD 12/07/2024 4:[address] [facility] Eosinophils % 2 % LAB HEMATOLOGY METHOD 12/07/2024 4:[address] [facility] Basophils % 1 % LAB HEMATOLOGY METHOD 12/07/2024 4:[address] [facility] Immature Granulocytes % 0 % LAB HEMATOLOGY METHOD 12/07/2024 4:[address] [facility] Neutrophils Absolute 6.30(H) 1.60 - 6.10 10*3/uL LAB HEMATOLOGY METHOD 12/07/2024 4:[address] [facility] Lymphocytes Absolute 1.43 1.20 - 3.90 10*3/uL LAB HEMATOLOGY METHOD 12/07/2024 4:[address] [facility] Monocytes Absolute 0.62 0.30 - 0.90 10*3/uL LAB HEMATOLOGY METHOD 12/07/2024 4:00 AM EDT [facility] Eosinophils Absolute 0.15 0.00 - 0.50 10*3/uL LAB HEMATOLOGY METHOD 12/07/2024 4:00 AM EDT [facility] Basophils Absolute 0.06 0.00 - 0.10 10*3/uL LAB HEMATOLOGY METHOD 12/07/2024 4:[address] [facility] Immature Granulocytes Absolute 0.03 0.00 - 0.06 10*3/uL LAB HEMATOLOGY METHOD 12/07/2024 4:[address] [facility] Blood Venous blood specimen / Unknown Venipuncture / Unknown 12/07/2024 3:38 AM EDT 12/07/2024 3:56 AM EDT Narrative [facility] - 12/07/2024 4:00 AM EDT Therapeutic decision making should be based on absolute values, rather than percentages. us Chan Antony MD LAB BLOOD ORDERABLES Final Result Performing Organization Address City/State/[facility] Co de Phone Number [facility] [address] [place] [phone] * MRCP w and wo IV Contrast (12/06/2024 4:23 PM EDT) Anatomical Region Laterality Modality Abdomen Magnetic Resonan ce Impressions 12/07/2024 10:07 AM EDT Indeterminate suspected pancreatic uncinate mass, most suspicious for adenocarcinoma, however sequela of prior pancreatitis is also possible. Recommend further evaluation with EUS. Mild intra and extrahepatic biliary ductal dilation, as well as mild dilation of the main pancreatic duct. Probable small hemangioma versus FNH in the right hepatic lobe. Bilateral adrenal nodules consistent with lipid rich adenomas. CRITICAL RESULT: No. COMMUNICATION: Per this written report. By electronically signing this report, I, the attending physician, attest that I have personally reviewed the images/data for the above examination(s) and agree with the final edited report. Drafted by Yasmin Taylor MD on 12/07/2024 8:02 AM Final report signed by Shadia Vincent DO on 12/07/2024 10:07 AM Narrative 12/07/2024 10:07 AM EDT CLINICAL INDICATION: Abdominal mass, intra-abdominal neoplasm suspected TECHNIQUE: MR imaging of the abdomen was performed with and without intravenous contrast material using the following sequences: coronal single shot T2 weighted fast spin echo, axial T2 weighted sequences with and without fat saturation, axial dual phase gradient echo, pre and dynamic postcontrast 3-D T1 weighted gradient echo with fat saturation (axial and coronal), and axial diffusion. Heavily T2-weighted 2D MRCP sequences were acquired. In addition, advanced 3D workstation manipulation and review of the data set was performed by the interpreting physician to further define anatomy and possible pathology. Images of areas of interest were created utilizing various techniques. These images were saved and transferred to PACS if significant. 7.3 mL of Gadavist was administered. COMPARISON: CT abdomen and pelvis performed at outside facility 12/03/2024 FINDINGS: Gallbladder: The gallbladder is distended. No cholelithiasis, gallbladder wall thickening or pericholecystic fluid. Biliary tree: Mild intra and extra hepatic biliary ductal dilation. Extrahepatic bile duct measures up to 8 mm (series 12 image 16). No choledocholithiasis or abnormal enhancement. Pancreas: There is fullness of the uncinate process with T1 hypointense, mildly T2 hyperintense hypoenhancing 2 cm focus (series 19, image 48). The pancreatic duct is dilated to the level of this focus, greatest within the body measuring up to 5 mm. There is a 3 mm cystic lesion within the uncinate process likely representing side branch IPMN (series 13, image 22). Mild peripancreatic inflammatory changes. Liver: Noncirrhotic liver morphology. No significant steatosis or iron deposition. There is an 1.1 cm lesion in the right hepatic lobe which demonstrates peripheral nodular enhancement with filling in on delayed images (series 21, image 20). No suspicious focal liver lesion. Spleen: Normal in size and signal. Adrenal Glands: Bilateral adrenal nodules measuring 3 cm on the right and 3.3 cm on the left consistent with lipid rich adenomas. Kidneys: No suspicious renal lesion or hydronephrosis. Tiny renal cysts. Fluid Survey: No ascites. Vasculature: Normal caliber aorta and IVC and patent major abdominal vasculature. Lymph Nodes: No adenopathy. Musculoskeletal: No acute or aggressive lesions. Lumbar spine fusion hardware. Procedure Note Shadia Vincent, DO - 12/07/2024 CLINICAL INDICATION: Abdominal mass, intra-abdominal neoplasm suspected TECHNIQUE: MR imaging of the abdomen was performed with and without intravenouscontrast material using the following sequences: coronal single shot [id number] fast spin echo, axial T2 weighted sequences with and without fatsaturation, axial dual phase gradient echo, pre and dynamic postcontrast3-D T1 weighted gradient echo with fat saturation (axial and coronal), andaxial diffusion. Heavily T2-weighted 2D MRCP sequences were acquired. Inaddition, advanced 3D workstation manipulation and review of the data setwas performed by the interpreting physician to further define anatomy andpossible pathology. Images of areas of interest were created utilizingvarious techniques. These images were saved and transferred to PACS ifsignificant. 7.3 mL of Gadavist was administered. COMPARISON: CT abdomen and pelvis performed at outside facility 12/03/2024 FINDINGS: Gallbladder: The gallbladder is distended. No cholelithiasis, gallbladderwall thickening or pericholecystic fluid. Biliary tree: Mild intra and extra hepatic biliary ductal dilation.Extrahepatic bile duct measures up to 8 mm (series 12 image 16). Nocholedocholithiasis or abnormal enhancement. Pancreas: There is fullness of the uncinate process with T1 hypointense,mildly T2 hyperintense hypoenhancing 2 cm focus (series 19, image 48). Thepancreatic duct is dilated to the level of this focus, greatest within thebody measuring up to 5 mm. There is a 3 mm cystic lesion within theuncinate process likely representing side branch IPMN (series 13, image22). Mild peripancreatic inflammatory changes. Liver: Noncirrhotic liver morphology. No significant steatosis or irondeposition. There is an 1.1 cm lesion in the right hepatic lobe whichdemonstrates peripheral nodular enhancement with filling in on delayedimages (series 21, image 20). No suspicious focal liver lesion. Spleen: Normal in size and signal. Adrenal Glands: Bilateral adrenal nodules measuring 3 cm on the right and3.3 cm on the left consistent with lipid rich adenomas. Kidneys: No suspicious renal lesion or hydronephrosis. Tiny renal cysts. Fluid Survey: No ascites. Vasculature: Normal caliber aorta and IVC and patent major abdominalvasculature. Lymph Nodes: No adenopathy. Musculoskeletal: No acute or aggressive lesions. Lumbar spine fusionhardware. IMPRESSION: Indeterminate suspected pancreatic uncinate mass, most suspicious foradenocarcinoma, however sequela of prior pancreatitis is also possible.Recommend further evaluation with EUS. Mild intra and extrahepatic biliary ductal dilation, as well as milddilation of the main pancreatic duct. Probable small hemangioma versus FNH in the right hepatic lobe. Bilateral adrenal nodules consistent with lipid rich adenomas. CRITICAL RESULT: No. COMMUNICATION: Per this written report. By electronically signing this report, I, the attending physician, attestthat I have personally reviewed the images/data for the aboveexamination(s) and agree with the final edited report. Drafted by Yasmin Taylor MD on 12/07/2024 8:02 AM Final report signed by Shadia Vincent DO on 12/07/2024 10:07 AM Chan Antony MD IMG MRI PROCEDURES Final Re sult * (ABNORMAL) Comprehensive metabolic panel (12/06/2024 5:45 AM EDT) Glucose, Plasma 170(H) 74 - 99 mg/dL 12/06/2024 6:37 AM EDT [facility] BUN, Plasma 19 8 - 23 mg/dL 12/06/2024 6:[address] [facility] Creatinine, Plasma 1.00 0.70 - 1.20 mg/dL 12/06/2024 6:[address] [facility] BUN/Creatinine Ratio 19 12/06/2024 6:37 AM EDT [facility] Sodium, Plasma 141 136 - 145 mmol/L 12/06/2024 6:[address] [facility] Potassium, Plasma 3.9 3.6 - 4.9 mmol/L 12/06/2024 6:37 AM EDT [facility] Chloride, Plasma 112(H) 97 - 107 mmol/L 12/06/2024 6:37 AM EDT [facility] CO2, Plasma 21(L) 22 - 29 mmol/L 12/06/2024 6:37 AM EDT [facility] Anion Gap 8 6 - 16 mmol/L 12/06/2024 6:[address] [facility] Total Calcium, Plasma 7.7(L) 8.9 - 10.2 mg/dL 12/06/2024 6:[address] [facility] Total Protein 5.3(L) 6.3 - 7.9 g/dL 12/06/2024 6:[address] [facility] Albumin, Plasma 3.1(L) 3.5 - 5.2 g/dL 12/06/2024 6:[address] [facility] AST, Plasma 25 10 - 50 U/L 12/06/2024 6:[address] [facility] Comment:Hemolyzed, result ma y be falsely increased. ALT, Plasma 34 10 - 50 U/L 12/06/2024 6:[address] [facility] Alkaline Phosphatase, Plasma 68 40 - 115 U/L 12/06/2024 6:[address] [facility] Total Bilirubin, Plasma 0.9 0.2 - 1.1 mg/dL 12/06/2024 6:[address] [facility] eGFRcr 84.0 mL/min/1.7 3m*2 12/06/2024 6:[address] [facility] Comment:Reported eGFRcr in m L/min/1.73m2 is based the CKD-EPI 2020 equation that does not use a race coefficient. Blood Venous blood specimen / Unknown Venipuncture / Unknown 12/06/2024 5:45 AM EDT 12/06/2024 6:16 AM EDT Chan Antony MD LAB BLOOD ORDERABLES Final Result [facility] [address] [place], [place] [id number] * (ABNORMAL) CBC and Differential (12/06/2024 5:45 AM EDT) WBC Count 7.69 3.70 - 10.30 10*3/uL LAB HEMATOLOGY METHOD 12/06/2024 6:[address] [facility] RBC Count 4.79 4.60 - 6.10 10*6/uL LAB HEMATOLOGY METHOD 12/06/2024 6:[address] [facility] HGB 13.7 13.7 - 17.5 g/dL LAB HEMATOLOGY METHOD 12/06/2024 6:[address] [facility] HCT 41.4 40.0 - 51.0 % LAB HEMATOLOGY METHOD 12/06/2024 6:[address] [facility] Platelet Count 205 155 - 369 10*3/uL LAB HEMATOLOGY METHOD 12/06/2024 6:[address] [facility] MCV 86 79 - 98 fL LAB HEMATOLOGY METHOD 12/06/2024 6:[address] [facility] MCH 28.6 26.0 - 32.0 pg LAB HEMATOLOGY METHOD 12/06/2024 6:[address] [facility] MCHC 33.1 30.7 - 35.5 g/dL LAB HEMATOLOGY METHOD 12/06/2024 6:[address] [facility] RDW 16.8(H) 11.5 - 14.5 % LAB HEMATOLOGY METHOD 12/06/2024 6:[address] [facility] MPV 11.2 8.8 - 12.5 fL LAB HEMATOLOGY METHOD 12/06/2024 6:[address] [facility] nRBC 0.0 <=0.0 per 100 WBCs LAB HEMATOLOGY METHOD 12/06/2024 6:[address] [facility] Differential Type Automated LAB HEMATOLOGY METHOD 12/06/2024 6:[address] [facility] Neutrophils % 68 % LAB HEMATOLOGY METHOD 12/06/2024 6:[address] [facility] Lymphocytes % 21 % LAB HEMATOLOGY METHOD 12/06/2024 6:[address] [facility] Monocytes % 7 % LAB HEMATOLOGY METHOD 12/06/2024 6:[address] [facility] Eosinophils % 3 % LAB HEMATOLOGY METHOD 12/06/2024 6:[address] [facility] Basophils % 1 % LAB HEMATOLOGY METHOD 12/06/2024 6:[address] [facility] Immature Granulocytes % 0 % LAB HEMATOLOGY METHOD 12/06/2024 6:[address] [facility] Neutrophils Absolute 5.32 1.60 - 6.10 10*3/uL LAB HEMATOLOGY METHOD 12/06/2024 6:[address] [facility] Lymphocytes Absolute 1.58 1.20 - 3.90 10*3/uL LAB HEMATOLOGY METHOD 12/06/2024 6:[address] [facility] Monocytes Absolute 0.54 0.30 - 0.90 10*3/uL LAB HEMATOLOGY METHOD 12/06/2024 6:[address] [facility] Eosinophils Absolute 0.19 0.00 - 0.50 10*3/uL LAB HEMATOLOGY METHOD 12/06/2024 6:[address] [facility] Basophils Absolute 0.04 0.00 - 0.10 10*3/uL LAB HEMATOLOGY METHOD 12/06/2024 6:[address] [facility] Immature Granulocytes Absolute 0.02 0.00 - 0.06 10*3/uL LAB HEMATOLOGY METHOD 12/06/2024 6:[address] [facility] Blood Venous blood specimen / Unknown Venipuncture / Unknown 12/06/2024 5:45 AM EDT 12/06/2024 6:[address] [facility] - 12/06/2024 6:20 AM EDT Therapeutic decision making should be based on absolute values, rather than percentages. Chan Antony MD LAB BLOOD ORDERABLES Final Result Performing Organization Address [facility] Co de Phone Number [facility] [address] [place] [address] * (ABNORMAL) Cancer antigen 19-9 (12/05/2024 11:19 PM EDT) CA 19.9 158(H) <36 U/mL 12/06/2024 4:[address] [facility] Blood Venous blood specimen / Unknown Venipuncture / Unknown 12/05/2024 11:19 PM EDT 12/05/2024 11:23 PM EDT Narrative [facility] - 12/06/2024 4:09 AM EDT Performed by [employer] electrochemiluminescent immunoassay. Results obtained with different test methods or kits cannot be used interchangeably. Chan Antony MD LAB BLOOD ORDERABLES Final Result Performing Organization Address City/[facility] Co de Phone Number [facility] [address] [place] [phone] * (ABNORMAL) PT-INR (12/05/2024 8:08 PM EDT) Prothrombin Time 15.5(H) 12.0 - 14.3 sec 12/05/2024 8:[address] [facility] INR 1.2(H) 0.9 - 1.1 12/05/2024 8:[address] [facility] Blood Venous blood specimen / Unknown Venipuncture / Unknown 12/05/2024 8:08 PM EDT 12/05/2024 8:13 PM EDT Narrative [facility] - 12/05/2024 8:25 PM EDT OPTIMAL INR RANGES FOR PATIENT ON ORAL ANTICOAGULANT THERAPY Prevention of venous thromboembolism INR 2.0 to 3.0 In patients with heart disease: Atrial fibrillation INR 2.0 to 3.0 Valvular heart disease INR 2.0 to 3.0 Tissue heart valves INR 2.0 to 3.0 Mechanical prosthetic valves INR 2.5 to 3.5 Prevention of recurrent PA INR 2.5 to 3.5 us Raysa CAMARILLO LAB BLOOD ORDERABLES Final R esult Performing Organization Address City/[facility]/ZIP Co de Phone Number [facility] [address] [place] [address] * Lactic acid, venous (12/05/2024 8:08 PM EDT) Lactate, Venous, Whole Blood 1.1 0.5 - 2.2 mmol/L LAB HEMATOLOGY METHOD 12/05/2024 8:18 PM EDT [facility] Blood Venous blood specimen / Unknown Venipuncture / Unknown 12/05/2024 8:08 PM EDT 12/05/2024 8:13 PM EDT us Raysa CAMARILLO LAB BLOOD ORDERABLES Final R esult Performing Organization Address City/[facility] Co de Phone Number [facility] [address] [place] [address] * (ABNORMAL) Lipase (12/05/2024 8:08 PM EDT) Lipase, Plasma 599(H) 19 - 63 U/L 12/05/2024 8:40 PM EDT [facility] Blood Venous blood specimen / Unknown Venipuncture / Unknown 12/05/2024 8:08 PM EDT 12/05/2024 8:13 PM EDT us Raysa CAMARILLO LAB BLOOD ORDERABLES Final R esult [facility] [address] [place] [phone] * (ABNORMAL) CBC w/diff (12/05/2024 8:08 PM EDT) [facility] Signature WBC Count 10.84(H) 3.70 - 10.30 10*3/uL LAB HEMATOLOGY METHOD 12/05/2024 8:[address] [facility] RBC Count 5.59 4.60 - 6.10 10*6/uL LAB HEMATOLOGY METHOD 12/05/2024 8:[address] [facility] HGB 15.9 13.7 - 17.5 g/dL LAB HEMATOLOGY METHOD 12/05/2024 8:[address] [facility] HCT 47.8 40.0 - 51.0 % LAB HEMATOLOGY METHOD 12/05/2024 8:[address] [facility] Platelet Count 235 155 - 369 10*3/uL LAB HEMATOLOGY METHOD 12/05/2024 8:[address] [facility] MCV 86 79 - 98 fL LAB HEMATOLOGY METHOD 12/05/2024 8:[address] [facility] MCH 28.4 26.0 - 32.0 pg LAB HEMATOLOGY METHOD 12/05/2024 8:[address] [facility] MCHC 33.3 30.7 - 35.5 g/dL LAB HEMATOLOGY METHOD 12/05/2024 8:[address] [facility] RDW 16.7(H) 11.5 - 14.5 % LAB HEMATOLOGY METHOD 12/05/2024 8:[address] [facility] MPV 10.6 8.8 - 12.5 fL LAB HEMATOLOGY METHOD 12/05/2024 8:[address] [facility] nRBC 0.0 <=0.0 per 100 WBCs LAB HEMATOLOGY METHOD 12/05/2024 8:[address] [facility] Differential Type Automated LAB HEMATOLOGY METHOD 12/05/2024 8:[address] [facility] Neutrophils % 82 % LAB HEMATOLOGY METHOD 12/05/2024 8:[address] [facility] Lymphocytes % 11 % LAB HEMATOLOGY METHOD 12/05/2024 8:[address] [facility] Monocytes % 6 % LAB HEMATOLOGY METHOD 12/05/2024 8:[address] [facility] Eosinophils % 1 % LAB HEMATOLOGY METHOD 12/05/2024 8:16 PM EDT [facility] Basophils % 0 % LAB HEMATOLOGY METHOD 12/05/2024 8:16 PM EDT [facility] Immature Granulocytes % 0 % LAB HEMATOLOGY METHOD 12/05/2024 8:16 PM EDT [facility] Neutrophils Absolute 8.81(H) 1.60 - 6.10 10*3/uL LAB HEMATOLOGY METHOD 12/05/2024 8:16 PM EDT [facility] Lymphocytes Absolute 1.23 1.20 - 3.90 10*3/uL LAB HEMATOLOGY METHOD 12/05/2024 8:16 PM EDT [facility] Monocytes Absolute 0.62 0.30 - 0.90 10*3/uL LAB HEMATOLOGY METHOD 12/05/2024 8:16 PM EDT [facility] Eosinophils Absolute 0.10 0.00 - 0.50 10*3/uL LAB HEMATOLOGY METHOD 12/05/2024 8:16 PM EDT [facility] Basophils Absolute 0.04 0.00 - 0.10 10*3/uL LAB HEMATOLOGY METHOD 12/05/2024 8:16 PM EDT [facility] Immature Granulocytes Absolute 0.04 0.00 - 0.06 10*3/uL LAB HEMATOLOGY METHOD 12/05/2024 8:16 PM EDT [facility] Blood Venous blood specimen / Unknown Venipuncture / Unknown 12/05/2024 8:08 PM EDT 12/05/2024 8:13 PM EDT Narrative [facility] - 12/05/2024 8:16 PM EDT Therapeutic decision making should be based on absolute values, rather than percentages. us Raysa CAMARILLO LAB BLOOD ORDERABLES Final R esult [facility] [address] [place] [id number] * Magnesium (12/05/2024 8:08 PM EDT) Magnesium, Plasma 2.2 1.9 - 2.4 mg/dL 12/05/2024 8:39 PM EDT [facility] Blood Venous blood specimen / Unknown Venipuncture / Unknown 12/05/2024 8:08 PM EDT 12/05/2024 8:13 PM EDT us Raysa CAMARILLO LAB BLOOD ORDERABLES Final R esult [facility] [address] [place] [address] * (ABNORMAL) CMP (12/05/2024 8:08 PM EDT) Glucose, Plasma 126(H) 74 - 99 mg/dL 12/05/2024 8:[address] [facility] BUN, Plasma 21 8 - 23 mg/dL 12/05/2024 8:[address] [facility] Creatinine, Plasma 1.12 0.70 - 1.20 mg/dL 12/05/2024 8:[address] [facility] BUN/Creatinine Ratio 19 12/05/2024 8:[address] [facility] Sodium, Plasma 139 136 - 145 mmol/L 12/05/2024 8:[address] [facility] Potassium, Plasma 3.9 3.6 - 4.9 mmol/L 12/05/2024 8:[address] [facility] Chloride, Plasma 103 97 - 107 mmol/L 12/05/2024 8:[address] [facility] CO2, Plasma 24 22 - 29 mmol/L 12/05/2024 8:[address] [facility] Anion Gap 12 6 - 16 mmol/L 12/05/2024 8:[address] [facility] Total Calcium, Plasma 9.2 8.9 - 10.2 mg/dL 12/05/2024 8:[address] [facility] Total Protein 6.6 6.3 - 7.9 g/dL 12/05/2024 8:[address] [facility] Albumin, Plasma 3.8 3.5 - 5.2 g/dL 12/05/2024 8:[address] [facility] AST, Plasma 33 10 - 50 U/L 12/05/2024 8:[address] [facility] ALT, Plasma 49 10 - 50 U/L 12/05/2024 8:[address] [facility] Alkaline Phosphatase, Plasma 85 40 - 115 U/L 12/05/2024 8:[address] [facility] Total Bilirubin, Plasma 1.6(H) 0.2 - 1.1 mg/dL 12/05/2024 8:39 PM [facility] eGFRcr 73.4 mL/min/1.7 3m*2 12/05/2024 8:39 PM EDT [facility] Comment:Reported eGFRcr in m L/min/1.73m2 is based the CKD-EPI 2020 equation that does not use a race coefficient. Blood Venous blood specimen / Unknown Venipuncture / Unknown 12/05/2024 8:08 PM EDT 12/05/2024 8:13 PM EDT us [facility] BLOOD ORDERABLES Final R esult [facility] [address] [place] [address] documented in this encounter Visit Diagnoses Diagnosis Pancreatic mass- Primary Unspecified disease of pancreas Upper abdominal pain Mass of head of pancreas Upper abdominal pain Moderate protein-calorie malnutrition (CMS/HCC) documented in this encounter Admitting Diagnoses Diagnosis Pancreatic mass Unspecified disease of pancreas documented in this encounter Administered Medications Inactive Administered Medications - up to 3 most recent administrations Medication Order MAR Action Action Date Dose Rate Site enoxaparin (Lovenox) syringe 40 mg 40 mg, Subcutaneous, Daily, First dose on Tue12/05/24 at 2305, Until Discontinued, Routine Given 12/07/2024 8:28 AM EDT 40 mg Right Lower Abdomen Given 12/06/2024 8:30 AM EDT 40 mg Ri ght Lower Abdomen Given 12/05/2024 11:16 PM EDT 40 mg R ight Upper Arm (Back) gabapentin (Neurontin) capsule 1,200 mg 1,200 mg, Oral, Daily, First dose on Tue12/06/24 at 0900, Until Discontinued, Routine Given 12/06/2024 8:30 AM EDT 1,200 mg gabapentin (Neurontin) capsule 400 mg 400 mg, Oral, 3 times daily, First dose (after last modification) on Tue12/07/24 at 0900, Until Discontinued, Routine Given 12/07/2024 4:58 PM EDT 400 mg Given 12/07/2024 8:28 AM EDT 400 mg gadobutrol (Gadavist) injection 7.3 mL 7.3 mL (rounded from 7.32 mL = 0.1 mL/kg 73.2 kg), Intravenous, Once in imaging, 1 dose, Starting on Tue12/06/24 at 1527, Until Tue12/06/24 at 1624, Routine, Imaging Protocol Orders Given 12/06/2024 4:24 PM EDT 7.3 mL Right Antecubital lactated Ringer's infusion 100 mL/hr, Intravenous, Continuous, Starting on Tue12/06/24 at 1500, Until Tue12/07/24 at 1256, Routine New Bag 12/07/2024 12:51 PM EDT 100 mL/hr 100 mL/hr New Bag 12/06/2024 4:57 PM EDT 100 mL/hr 100 mL/hr morphine PF 4 mg 4 mg, Intravenous, Once, 1 dose, On Tue12/05/24 at 1999, STAT Given 12/05/2024 8:09 PM EDT 4 mg morphine PF 4 mg 4 mg, Intravenous, Every 4 hours PRN, Starting on Tue12/05/24 at 2259, Until Tue12/07/24 at 2030, Routine, moderate pain, severe pain Given 12/07/2024 1:39 AM EDT 4 mg Given 12/06/2024 9:21 PM EDT 4 mg Given 12/06/2024 12:00 AM EDT 4 mg ondansetron (Zofran) 4 MG/5ML solution 4 mg 4 mg, Oral, Every 6 hours PRN, Starting on Tue12/06/24 at 0028, Until Tue12/07/24 at 2030, Routine, nausea, vomiting ondansetron (Zofran) injection 4 mg 4 mg, Intravenous, Once, 1 dose, On Tue12/05/24 at 2000, STAT Given 12/05/2024 8:08 PM EDT 4 mg ondansetron (Zofran) injection 4 mg 4 mg, Intravenous, Every 6 hours PRN, Starting on Tue12/06/24 at 0028, Until Tue12/07/24 at 2030, Routine, vomiting, nausea ondansetron ODT (Zofran-ODT) disintegrating tablet 4 mg 4 mg, Oral, Every 6 hours PRN, Starting on Tue12/06/24 at 0028, Until Tue12/07/24 at 2030, Routine, nausea, vomiting oxyCODONE (Roxicodone) immediate release tablet 5 mg 5 mg, Oral, Every 4 hours PRN, Starting on Tue12/05/24 at 2259, Until Tue12/07/24 at 2030, Routine, moderate pain, severe pain Given 12/07/2024 4:58 PM EDT 5 mg Given 12/07/2024 8:34 AM EDT 5 mg Given 12/07/2024 1:39 AM EDT 5 mg sodium chloride 0.9 % flush 10 mL 10 mL, Intravenous, Every 12 hours, First dose on Tue12/05/24 at 2305, Until Discontinued, Routine Given 12/07/2024 8:28 AM EDT 10 mL Given 12/06/2024 11:05 PM EDT 10 mL Given 12/06/2024 8:30 AM EDT 10 mL sodium chloride 0.9 % flush 10 mL 10 mL, Intravenous, As needed, Starting on Tue12/05/24 at 2254, Until Tue12/07/24 at 2030, Routine, line care Given 12/06/2024 12:00 AM EDT 10 mL documented in this encounter Active and Recently Administered Medications Times are shown in EDT. Scheduled Medication Order 12/05/2024 12/06/2024 12/07/2024 enoxaparin (Lovenox) syringe 40 mg 40 mg, Subcutaneous, Daily, First dose on Tue12/05/24 at 2305, Until Discontinued, Routine 2316 (Given - Provider: Eva Quan RN) 0830 (Given - Provider: Monique Bryan, KENNETH) 0828 (Given - Provider: Monique Bryan RN) gabapentin (Neurontin) capsule 1,200 mg (CANCELED) 1,200 mg, Oral, Daily, First dose on Tue12/06/24 at 0900, Until Discontinued, Routine 0830 (Given - Provider: Monique Bryan, KENNETH) gabapentin (Neurontin) capsule 400 mg 400 mg, Oral, 3 times daily, First dose (after last modification) on Tue12/07/24 at 0900, Until Discontinued, Routine 0828 (Given - Provider: Monique Bryan, KENNETH)1658 (Given - Provider: Monique Bryan, KENNETH) gadobutrol (Gadavist) injection 7.3 mL (COMPLETED) 7.3 mL (rounded from 7.32 mL = 0.1 mL/kg 73.2 kg), Intravenous, Once in imaging, 1 dose, Starting on [place] 12/06/24 at 1527, Until Tue12/06/24 at 1624, Routine, Imaging Protocol Orders 1624 (Given - Provider: Afshan Marte) morphine PF 4 mg (COMPLETED) 4 mg, Intravenous, Once, 1 dose, On Tue12/05/24 at 1999, STAT 2008 (Given - Provider: Eva Quan, KENNETH) ondansetron (Zofran) injection 4 mg (COMPLETED) 4 mg, Intravenous, Once, 1 dose, On Tue12/05/24 at 1999, STAT 2007 (Given - Provider: Eva Quan, RN) sodium chloride 0.9 % flush 10 mL(Linked Group 1) 10 mL, Intravenous, Every 12 hours, First dose on Tue12/05/24 at 2305, Until Discontinued, Routine 2316 (Given - Provider: Eva Quan, KENNETH) 0830 (Given - Provider: Monique Bryan, KENNETH)1027 (Canceled Entry - Provider: Monique Bryan, RN)2305 (Given - Provider: Naheed Garay, KENNETH) 0828 (Given - Provider: Monique Bryan, RN)1013 (Canceled Entry - Provider: Monique Bryan, RN) Continuous Medication Order 12/05/2024 12/06/2024 12/07/2024 lactated Ringer's infusion 100 mL/hr, Intravenous, Continuous, Starting on [place] 12/06/24 at 1500, Until Tue12/07/24 at 1256, Routine 1657 (New Bag - Provider: Monique Bryan, RN) 1251 (New Bag - Provider: Monique Bryan, RN) PRN Medication Order 12/05/2024 12/06/2024 12/07/2024 morphine PF 4 mg 4 mg, Intravenous, Every 4 hours PRN, Starting on Tue12/05/24 at 2259, Until Tue12/07/24 at 2030, Routine, moderate pain, severe pain 0000 (Given - Provider: Naheed Garay, KENNETH)2121 (Given - Provider: Naheed Garay, KENNETH) 0139 (Given - Provider: Naheed Garay, KENNETH) ondansetron (Zofran) 4 MG/5ML solution 4 mg(Linked Group 2) 4 mg, Oral, Every 6 hours PRN, Starting on Tue12/06/24 at 0028, Until Tue12/07/24 at 2030, Routine, nausea, vomiting ondansetron (Zofran) injection 4 mg(Linked Group 2) 4 mg, Intravenous, Every 6 hours PRN, Starting on Tue12/06/24 at 0028, Until Tue12/07/24 at 2030, Routine, vomiting, nausea ondansetron ODT (Zofran-ODT) disintegrating tablet 4 mg(Linked Group 2) 4 mg, Oral, Every 6 hours PRN, Starting on Tue12/06/24 at 0028, Until Tue12/07/24 at 2030, Routine, nausea, vomiting oxyCODONE (Roxicodone) immediate release tablet 5 mg 5 mg, Oral, Every 4 hours PRN, Starting on Tue12/05/24 at 2259, Until Tue12/07/24 at 2030, Routine, moderate pain, severe pain 0830 (Given - Provider: Monique Bryan, KENNETH)1657 (Given - Provider: Monique Bryan, KENNETH) 0139 (Given - Provider: Naheed Garay, KENNETH)0834 (Given - Provider: Monique Bryan, RN)1658 (Given - Provider: Monique Bryan, RN) sodium chloride 0.9 % flush 10 mL(Linked Group 1) 10 mL, Intravenous, As needed, Starting on Tue12/05/24 at 2254, Until Tue12/07/24 at 2030, Routine, line care 0000 (Given - Provider: Naheed Garay, KENNETH) Linked Groups Order Group 1: Insert peripheral IV (COMPLETED) Once, On Tue12/05/24 at 2255, For 1 occurrence And Saline lock IV (COMPLETED) Once, On Tue12/05/24 at 2255, For 1 occurrence And sodium chloride 0.9 % flush 10 mLJump to med 10 mL, Intravenous, Every 12 hours, First dose on Tue12/05/24 at 2305, Until Discontinued, Routine And sodium chloride 0.9 % flush 10 mLJump to med 10 mL, Intravenous, As needed, Starting on Tue12/05/24 at 2254, Until Tue12/07/24 at 2030, Routine, line care Group 2: ondansetron ODT (Zofran-ODT) disintegrating tablet 4 mgJump to med 4 mg, Oral, Every 6 hours PRN, Starting on [place] 12/06/24 at 0028, Until Tue12/07/24 at 2030, Routine, nausea, vomiting Or ondansetron (Zofran) injection 4 mgJump to med 4 mg, Intravenous, Every 6 hours PRN, Starting on [place] 12/06/24 at 0028, Until Tue12/07/24 at 2030, Routine, vomiting, nausea Or ondansetron (Zofran) 4 MG/5ML solution 4 mgJump to med 4 mg, Oral, Every 6 hours PRN, Starting on [place] 12/06/24 at 0028, Until Tue12/07/24 at 2030, Routine, nausea, vomiting documented in this encounter Additional Health Concerns Assessment Noted Time A fall risk assessment has been complete d for the patient 03/10/2022 9:47 AM EDT A Body Mass Index follow-up plan has been documented for the patient 12/07/2024 6:16 PM EDT documented as of this encounter Care Teams Superintendent Circus Relationship Specialty Start Date End Date Raimundo Chirinos MD [address] [place] [address] [address] [place] [address] PCP - General 11/18/21 Moiz Mcnally MD [address] [facility] [place] [address] Surgeon Neurosurgery 11/18/21 Bridgett Gonzales APRN [address] [place] [address] Nurse Practitioner Neurosurgery 01/07/22 documented as of this encounter
--- OUTSIDE RECORDS SUMMARY | 2024-12-20 06:31 | XMS_ITS | Encounter Summary ---
Author Organization [facility] Address [address] [id number] Care Team Providers Care Prosthodontist Name Role Phone Raimundo Chirinos MD Primary Care Provider [phone] Moiz Mcnally MD Unavailable [phone] Bridgett Gonzales PULL OVER MACHINE OPERATOR Unavailable [phone] Reason for Referral * Imaging (Routine) - Closed Specialty Diagnoses / Procedures Referred By Pola black Referred To Contact Gastroenterology Diagnoses Mass of head of pancreas Procedures ERCP Darian Jaramillo MD [address] [facility] [address] [place] [address] Phone: tel: fax: Referral ID Status Reason Start Date Expiration Date V isits Requested Visits Authorized [id number] Closed Specialty Services Required 12/11/2024 06/12/2026 1 1 * Imaging (Routine) - Closed Specialty Diagnoses / Procedures Referred By Pola black Referred To Contact Gastroenterology Diagnoses Mass of head of pancreas Procedures EUS (Upper) Kiko Ball MD [address] [place] [address] Phone: tel: fax: Referral ID Status Reason Start Date Expiration Date V isits Requested Visits Authorized [id number] Closed Specialty Services Required 12/04/2024 06/05/2026 1 1 Reason for Visit * Imaging (Routine) - Closed Specialty Diagnoses / Procedures Referred By Pola black Referred To Contact Gastroenterology Diagnoses Mass of head of pancreas Procedures ERCP Darian Jaramillo MD [address] [address] Phone: tel: fax: Referral ID Status Reason Start Date Expiration Date V isits Requested Visits Authorized [id number] Closed Specialty Services Required 12/11/2024 06/12/2026 1 1 Encounter Details Date Type Department Care Team (Latest Contact Info) Description 12/20/2024 6:31 AM EDT - 12/20/2024 7:35 AM EDT Hospital Encounter [facility] [address] [place] [address] Darian Jaramillo MD [id number] [place] [address] Acute pancreatitis, unspecified complication status, [...] [facility] in the [facility], were you homeless or living in a care home (including now)? No 12/27/2024 CAGE ASSESSMENT Answer [...] drink first t zeb in the morning (EYE-SKEIN WINDER) to steady your nerves or to get [...] He has a past medical historyof A-fib ([facility]), CHF (congestive heart failure) ([facility]), Coronary artery disease, Hypertension, Lower back [...] Date A-fib (CMS/HCC) CHF (congestive heart failure) ([facility]) Coronary artery disease Hypertension Lower back pain Numbness and tingling of both feet Spinal stenosis of lumbar region with neurogenic claudication 11/20/2021 Added automatically from request for surgery [id number] [3] Past Surgical History: Procedure Laterality Date [...] from the original note were not included. [id number] Endoscopy Unit: Caring for Yourself after an [...] will be available in the patient portal, [employer]. Or you can call the doctor who [...] from the original note were not included. [id number] Endoscopy Unit: Caring for Yourself after an [...] will be available in the patient portal, [employer], or you can call the doctor who [...] from the original note were not included. [id number] Anesthesia: General Anesthesia You?re due to have [...] medicines you take. This includes prescription and yimw-ujh-lsskbam medicines. It also includes vitamins, herbs, and [...] safe. Last Reviewed Date: 2023 00:00:00 ?? [id number] [employer]. All rights reserved. This information is not intended as a substitute for professional medical care. Always follow your healthcare professional's instructions. documented in this encounter Plan of Treatment Upcoming Encounters Date Type Department Care Team (Late st Contact Info) Description 01/24/2025 8:30 AM EDT Office Visit [facility] Multidisciplinary Oncology Clinic [address] [place] [address] Nito Balderas MD [address] [place] [address] documented as of this encounter Procedures Procedure [...] Impression Prior to introduction of the duodenoscope, supervisor carbon paper coating image was obtained. This showed no foreign [...] medications. 500 mg IV Levaquin 100 mg GA indomethacin 1.0 mg IV glucagon (given as two doses of 0.5 mg) Staff Staff Role Sae Barriga MD Anesthesiologist Darian Jaramillo MD Proceduralist Pascual Dunlap, Dominic Umana CRNA Endo Ware Dresser Pedro Luis Henry RN Endo Nurse Preprocedure [...] Findings Prior to introduction of the duodenoscope, supervisor carbon paper coating image was obtained. This showed no foreign [...] sample was sent for cytology analysis. Onsite product promoter sales person was not present Recommendations Await pathology results [...] fo this. They report Dr. Chirinos in [place] can see him regularly, if any of these occur. Indication Mass of head of pancreas Medications See anesthesia record for anesthesia administered medications. 500 mg IV Levaquin 100 mg GA indomethacin 1.0 mg IV glucagon (given as two doses of 0.5 mg) Staff Staff Role Sae Barriga MD Anesthesiologist Darian Jaramillo MD Proceduralist Pascual Dunlap, Dominic Umana CRNA Endo Ware Dresser Pedro Luis Henry RN Endo Nurse Preprocedure [...] sample was sent for cytology analysis. Onsite product promoter sales person was not present us Kiko Ball MD GI PROCEDURE ORDERABLES Final Re sult * Fine needle aspiration (12/20/2024 8:21 AM EDT) Case Report Cytology Case: [id number] Authorizing Provider: Darian Jaramillo MD Collected: 12/20/2024 0821 Ordering Location: [facility] Received: 12/20/2024 1104 Pathologist: Carol Hyman MD Specimen: Pancreas, Fine Needle Aspiration, HEAD OF PANCREAS MASS, ENDOSCOPIC ULTRASOUND GUIDED FINE NEEDLE ASPIRATION 12/21/2024 4:16 PM EDT [facility] Final Diagnosis A. HEAD OF PANCREAS MASS, ENDOSCOPIC ULTRASOUND GUIDED FINE NEEDLE ASPIRATION: - SCANT MARKEDLY ATYPICAL CELLS, MOST COMPATIBLE WITH ADENOCARCINOMA (SEE COMMENT). 12/21/2024 4:16 PM EDT [facility] at 1616 EDT Comment Clinical and imaging correlation is suggested. 12/21/2024 4:16 PM EDT [facility] Intradepartmental Consultation with Agreement Dr. Dayami Marks 12/21/2024 4:16 PM EDT [facility] Immediate Evaluation FNA performed by Dr. Jaramillo Number of sticks: Not provided This service has been rendered in part by a resident. A pathologist has personally reviewed the slides/tissue and has rendered and is responsible for diagnosis for the diagnosis that appears on the report. 12/21/2024 4:16 PM EDT [facility] Gross Description A. HEAD OF PANCREAS MASS, ENDOSCOPIC ULTRASOUND GUIDED FINE NEEDLE ASPIRATION 10 ml's tinted Needle rinse fluid processed as ThinPrep and cellblock for complete evaluation of sample. Slides were NOT received Cold Time: 4h 39m 12/21/2024 4:16 PM EDT [facility] Note: A resident was involved in the service. I attest I examined the relevant preparations for the specimens and confirmed the diagnosis or interpretation. 12/21/2024 4:16 PM EDT [facility] Clinical Information K86.89 - Mass of head of pancreas [ICD-10-CM] 12/21/2024 4:16 PM EDT [facility] Fine Needle Aspirate Pancreatic structure / Unknown 12/20/2024 8:21 AM EDT 12/20/2024 11:04 AM EDT us Darian Jaramillo MD LAB CYTOLOGY ORDERABLES Fin al Result Performing Organization Address [facility] de Phone Number [facility] [address] [place] [address] * Surgical Pathology Exam (12/20/2024 8:10 AM EDT) Case Report Surgical Pathology Case: [id number] Authorizing Provider: Darian Jaramillo MD Collected: 12/20/2024 0810 Ordering Location: [facility] Endoscopy Received: 12/20/2024 1014 Pathologist: Jet Mike MD Specimen: Stomach, Gastric Bx 12/21/2024 9:37 AM EDT [facility] Final Diagnosis STOMACH, BIOPSY: - NO PATHOLOGIC ABNORMALITY - NO EVIDENCE OF HELICOBACTER-L CARLOTA ORGANISMS ON ROUTINE STAIN 12/21/2024 9:37 AM EDT [facility] at 0937 EDT Clinical Information K86.89 - Mass of head of pancreas [ICD-10-CM] 12/21/2024 9:37 AM EDT [facility] Gross Description A. GASTRIC BX Received in formalin labeled gastric biopsy are 4 swanson-brown soft tissue fragments measuring 0.2-0.4 cm in greatest dimension. Entirely submitted in cassette A1. Cold Time: <1m Eve Palmer 12/21/2024 9:37 AM EDT [facility] Tissue Stomach structure / Unknown 12/20/2024 8:10 AM EDT 12/20/2024 10:14 AM EDT us Darian Jaramillo MD LAB PATHOLOGY ORDERABLES Fi nal Result Performing Organization Address [facility] Co de Phone Number [facility] [address] [place] [address] documented in this encounter Visit Diagnoses Diagnosis [...] documented as of this encounter Care Teams Prosthodontist Relationship Specialty Start Date End Date Raimundo Chirinos MD [address] [place] [address] [address] [place] [address] PCP - General 11/18/21 Moiz Mcnally MD [address] [place] [address] Surgeon Neurosurgery 11/18/21 Bridgett Gonzales APRN [address] [place] [id number] Nurse Practitioner Neurosurgery 01/07/22 documented as of this encounter
--- OUTSIDE RECORDS SUMMARY | 2024-12-20 07:36 | XMS_ITS | Encounter Summary ---
Author Organization Healthcare Address [address] [place] [address] Care Team Providers Care Wine Merchant Name Role Phone Raimundo Chirinos MD Primary Care Provider [phone] Moiz Mcnally MD Unavailable [phone] Bridgett Gonzales ROUGHER MERCHANT MILL Unavailable [phone] Encounter Details Date Type Department Care Team (Latest Contact Info) Description 12/20/2024 7:36 AM EDT - 12/20/2024 11:59 PM EDT Hospital Encounter [facility] [address] [place] [address] History of ERCP Discharge Disposition: Home or [...] any time in the past 12 m [facility], were you homeless or living in a prison (including now)? No 12/27/2024 CAGE ASSESSMENT Answer [...] drink first t zeb in the morning (EYE-BILINGUAL SALES REPRESENTATIVE) to steady your nerves or to get [...] 01/24/2025 8:30 AM EDT Office Visit [facility] Multidisciplinary Oncology Clinic [address] [place] [phone] Nito Balderas MD [address] [place] [address] documented as of this encounter Procedures Procedure [...] documented as of this encounter Care Teams Wine Merchant Relationship Specialty Start Date End Date Raimundo Chirinos MD [address] [place] [address] [address] [place] [address] PCP - General 11/18/21 Moiz Mcnally MD [address] [facility] [place] [address] Surgeon Neurosurgery 11/18/21 Bridgett Gonzales APRN [address] [place] [address] Nurse Practitioner Neurosurgery 01/07/22 documented as of this encounter
--- OUTSIDE RECORDS SUMMARY | 2024-12-20 07:53 | XMS_ITS | Encounter Summary ---
Author Organization [facility] Address [address] [place] [address] Care Team Providers Care Director Of Loss Prevention Name Role Phone Raimundo Chirinos MD Primary Care Provider Moiz Mcnally MD Unavailable [phone] Bridgett Gonzales TRANSPORTATION REFRIGERATION TECHNICIAN Unavailable [phone] Encounter Details Date Type Department Care Team (Late st Contact Info) Description 12/20/2024 7:53 AM EDT Anesthesia Event [facility] [address] [place] [address] Sae Barriga MD [address] [place] [phone] Pascual Dunlap, ENGINEERING SUPPLIES SALES [address] [place] [phone] Anesthesia Record Procedure Summary Procedure Name Responsible [...] 12/20/24; Removal Time: 1059 12/20/24 0715 by Mareln Galeana RN 12/20/24 1059 by Anne Wilde RN ETT Placement Date: 11/26 12/19; Placement Time: 0800 (created via procedure documentation); Technique: Direct laryngoscopy; Type: ETT - single; Single Lumen Tube Size: 7.5 mm; Cuffed: Yes; Laryngoscope: Regine; Blade Size: 3; Location: Oral; Grade View: Grade I; Insertion Attempts: 1; Placement Verification: Auscultation, Capnometry; Airway Comments: Atraumatic. No change to dentition. ; Placed by: VANDANA; Removal Date: 12/20/24; Removal Time: 0942 12/20/24 0800 by Pascual Dunlap CRNA 12/20/24 0942 by Pascual Dunlap, ENGINEERING SUPPLIES SALES documented in this encounter Social History Tobacco [...] any time in the past 12 m [facility], were you homeless or living in a long term (including now)? No 12/06/2024 CAGE ASSESSMENT Answer [...] drink first t zeb in the morning (EYE-DESIGN QUALITY ENGINEER) to steady your nerves or to get rid of a hangover? 0 12/05/2024 CAGE Questionnaire Score 0 025 Utilities Answer Date Recorded In the past 12 months has [employer], gas, oil, or water [employer] threatened to shut off services in your [...] during procedure: OR Anesthesiologist: Sae Barriga MD ENGINEERING SUPPLIES SALES: Pascual Dunlap CRNA Performed: ENGINEERING SUPPLIES SALES Patient Condition Indications for airway management: anesthesia [...] 7:52 AM EDT Anesthesiologist: Sae Barriga MD ENGINEERING SUPPLIES SALES: Pascual Dunlap CRNA Patient: Guanako Brock HPI [...] Cardio (+) Essential hypertension (+) Paroxysmal A-fib ([facility]/HCC) /Renal (+) ELDER (acute kidney injury) ([facility]) ALLERGIES Allergies[1] NPO STATUS Date of Last [...] 12/07/2024 ABG Lab Results Component Value Date [id number] 24 12/11/2021 LACTATE 1.2 12/11/2021 Lab Results Component Value Date PH 7.26 (L) 12/11/2021 PCO2 53 (H) 12/11/2021 PO2 274 12/11/2021 [id number] 100.0 (H) 12/11/2021 BASEEXC -4.4 (L) 12/11/2021 HCTSYR 49.1 12/11/2021 KSYR 4.4 12/11/2021 CLSYR 112 (H) 12/11/2021 GLUSYR 99 12/11/2021 CAION 4.5 (L) 12/11/2021 LACTATE 1.2 12/11/2021 ECHO No echocardiogram results found for the past 12 months PFTs No results found for: AGE6FCF , RUF2TKFK , CLE2GHZ , FVCPRED BP Readings from Last 5 [...] Plan ASA 3 Plan was reviewed with: ENGINEERING SUPPLIES SALES Anesthesia technique(s) discussed with the patient/family: general [...] 11/20/2021 Added automatically from request for surgery [id number] [3] [4] [5] Past Surgical History: Procedure [...] EDT Office Visit [facility] [address] [place] [phone] Nito Balderas MD [address] [place] [phone] documented as of this encounter Procedures Procedure Name Priority Date/Time Associated Diagnosis Comments PB ANESTHESIA PLACEHOLDER Routine 12/20/2024 8:00 AM EDT SC AN ELECTIVE ENDOTRACHEAL AIRWAY Routine 12/20/2024 8:00 AM EDT documented in this encounter Results * SC AN ELECTIVE ENDOTRACHEAL AIRWAY, PB ANESTHESIA PLACEHOLDER (12/20/2024 8:00 AM EDT) Narrative Pascual Dunlap CRNA - 12/20/2024 8:00 AM EDT Pascual Dunlap CRNA 12/20/2024 8:05 AM Airway Date/Time: 12/20/2024 8:00 AM Reason: elective Airway not difficult General Information and Staff Patient location during procedure: OR Anesthesiologist: Sae Barriga MD ENGINEERING SUPPLIES SALES: Pascual Dunlap CRNA Performed: ENGINEERING SUPPLIES SALES Patient Condition Indications for airway management: anesthesia [...] documented as of this encounter Care Teams Director Of Loss Prevention Relationship Specialty Start Date End Date Raimundo Chirinos MD [facility] [address] [place] [address] PCP - General 11/18/21 Moiz Mcnally MD [address] [place] [address] Surgeon Neurosurgery 11/18/21 Bridgett Gonzales APRN [address] [place] [address] Nurse Practitioner Neurosurgery 01/07/22 documented as of this encounter
--- OUTSIDE RECORDS SUMMARY | 2024-12-25 07:53 | XMS_ITS | Encounter Summary ---
Author Organization [facility] Address [address] [id number] Care Team Providers Care Broadband Engineer Name Role Phone Raimundo Chirinos MD Primary Care Provider [phone] Moiz Mcnally MD Unavailable [phone] Bridgett Gonzales TANKAGE SUPERVISOR Unavailable [phone] Purvi Foy RN Unavailable Unavailab le Reason for Referral * Consultation (Routine) - Authorized Specialty Diagnoses / Procedures Referred By Contac t Referred To Contact Family Medicine Diagnoses Malignant neoplasm of body of pancreas (CMS/HCC) Iesha Pride MD [address] [place] [address] Phone: tel: fax: Referral ID Status Reason Start Date Expiration Date V isits Requested Visits Authorized [id number] Authorized 12/26/2024 06/27/2026 1 1 * Consultation (Routine) - Authorized Specialty Diagnoses / Procedures Referred By Contact Referred To Contact Medical Oncology / Hematology and Oncology Diagnoses Malignant neoplasm of pancreas, unspecified location of malignancy (CMS/HCC) Jason Albarran MD [address] [facility] [address] [place] [address] Phone: tel: fax: [facility] Multidisciplinary Oncology Clinic [address] [place] [address] Phone: tel: fax: Referral ID Status Reason Start Date Expiration Date Visits Requested Visits Authorized [id number] Authorized Specialty Services Required 12/26/2024 06/27/2026 1 1 * Consultation (Routine) - Authorized Specialty Diagnoses / Procedures Referred By Contac t Referred To Contact Surgical Oncology / Hematology and Oncology Diagnoses Acute pancreatitis, unspecified complication status, unspecified pancreatitis type Pancreatic mass Omar Barnhart MD [address] Phone: tel: fax: Referral ID Status Reason Start Date Expiration Date Visits Requested Visits Authorized [id number] Authorized Specialty Services Required 12/25/2024 06/26/2026 1 1 * Consultation (Routine) - Authorized Specialty Diagnoses / Procedures Referred By Contact Referred To Contact Medical Oncology / Hematology and Oncology Diagnoses Acute pancreatitis, unspecified complication status, unspecified pancreatitis type Pancreatic mass Omar Barnhart MD [address] [place] [address] Phone: tel:[phone] fax:[phone] [facility] [address] [place] [address] Phone: tel: fax: Referral ID Status Reason Start Date Expiration Date Visits Requested Visits Authorized [id number] Authorized Specialty Services Required 12/25/2024 06/26/2026 1 1 Scheduling Instructions New Pancreatic Mass Reason for Visit * Reason Comments Pain * Auth/Cert (Routine) Specialty Diagnoses / Procedures Referred By Contac t Referred To Contact Diagnoses Malignant neoplasm of pancreas, unspecified location of malignancy (CMS/HCC) Bulmaro Fong MD [address] [place], [place] [id number] Phone: tel: fax: [facility] [address] [place] [address] Phone: tel: Referral ID Status Reason Start Date Expiration Date Visits Re quested Visits Authorized [id number] 1 1 Encounter Details Date Type Department Care Team (Latest Contact Info) Description 12/25/2024 7:53 AM EDT - 12/26/2024 5:05 PM EDT Hospital Encounter [facility] Emergency [facility] [address] [place] [id number] Danny Lucio MD [address] [place] [address] Bulmaro Fong MD [address] [place] [address] Iesha Pride MD [address] [place] [address] Malignant neoplasm of pancreas, unspecified [...] any time in the past 12 [address], were you homeless or living in a correction (including now)? No 12/27/2024 CAGE ASSESSMENT Answer [...] drink first t zeb in the morning (EYE-MANAGER OF CORPORATE COMMUNICATIONS) to steady your nerves or to get [...] for nausea or vomiting. 90 tablet 12/25/2024 oxyCODONE (Roxicodone) 5 MG immediate release tablet Take 1 tablet by mouth every 6 hours as needed for severe pain (Breakthrough pain) for up to 7 days. 28 tablet 12/26/2024 5 potassium chloride CR (Klor-Con M20) 20 MEQ ER tablet Take 1 tablet by mouth daily. Do not crush or chew. senna-docusate sodium (Senokot-S) 8.6-50 MG tablet Take 1 tablet by mouth 2 times a day as needed for constipation. 60 tablet 2 12/07/2024 documented as of this encounter Miscellaneous Notes * Discharge Summary - Iesha Pride MD - 12/26/2024 5:05 PM EDT Hospitalization Admit Date/Time: 12/25/2024 7:53 AM Admitting Attending: Bulmaro Fong Discharge Date: 12/26/2024 Discharge Attending Physician: Iesha Pride MD PCP name and Address: Raimundo Chirinos MD [address] [place] [address] [address] / [address] [address] Referring provider name and address: No referring [...] the mass - We will have our [facility] nurse navigators work with him to [...] that he does not need it. His [id number] is at least 2 PLAN - I [...] Your Medications These medications were sent to [facility] [address] [place], [place] [address] [address] [address] aspirin 81 MG EC tablet metoprolol succinate [...] Time Provider Department Center 01/24/2025 8:30 AM Alnimer, Yanal M, MD MOCHWHTNY Katey-Hend Test Results Pending At Discharge Pertinent Physical [...] Surgical Oncology Surgery Progress Note 12/26/24 Guanako Vamshi Brock Subjective Subjective: HPI 64M PMH HFpEF [...] the mass - We will have our [facility] nurse navigators work with him to [...] that he does not need it. His [id number] is at least 2 PLAN - I [...] Symptoms Outcome: Ongoing, Progressing * H&P - UlyssesShoaib apple MD - 12/25/2024 3:39 PM EDT Images from the original note were not included. [facility] Department of Surgery Division of Surgical [...] x8, and hypertension who presented to the [facility] on 12/25/2024 withconcerns for intractable nausea, vomiting, [...] x8, and hypertension who presented to the [facility] on 12/25/2024 with concerns for intractable nausea, [...] Rubio Added automatically from request for surgery [id number] Dispo: Continue Current Level of Care CODE STATUS: full code This Consult, Assessment, and Plan has been discussed with Dr. Navarro, Attending Physician Shoaib Ramachandran MD General Surgery, PGY-1 Pager: [phone] 7:16 PM 12/25/2024 [1] Past Medical History: Diagnosis Date A-fib (CMS/HCC) CHF (congestive heart failure) (CMS/HCC) Coronary artery disease Hypertension Lower back pain Numbness and tingling of both feet Spinal stenosis of lumbar region with neurogenic claudication 11/20/2021 Added automatically from request for surgery [id number] [2] Allergies Allergen Reactions Atorvastatin Hallucinations Happens [...] Reason for Consult: pancreatic adenocarcinoma Primary Service: [facility] History of Present Illness: Guanako Brock is a 64 y.o. male with a known medical history of chronic HFpEF (last EF 45-60%), pAfib (no AC), CAD s/p stents x8, HTN, smoker, and neuropathy was sent here at the request of his apron trimmer for biopsy proven pancreatic adenocarcinoma. Patient has been evaluated for abdominal mass in the outpatient setting. He was seen by apron trimmer, Dr. Jaramillo, in the outpatient setting in [...] sent here at the request of his apron trimmer for biopsy proven pancreatic adenocarcinoma. Pancreatic adenocarcinoma [...] Austin Jackson D.O. Hematology and Oncology Fellow [facility] [1] Past Medical History: Diagnosis Date A-fib (CMS/HCC) CHF (congestive heart failure) (CMS/HCC) Coronary artery disease Hypertension Lower back pain Numbness and tingling of both feet Spinal stenosis of lumbar region with neurogenic claudication 11/20/2021 Added automatically from request for surgery [id number] [2] Past Surgical History: Procedure Laterality Date [...] continued pain and directed by Gastroenterology. This newspaper writer has spoken gastroenterology who stated they [...] 97%. Results Review {Vanishing Link Review Results :[id number] I have reviewed the latest lab and [...] developing a clot and potential stroke versus HI. thus would recommend the patient being on [...] and Affect: Mood normal. Behavior: Behavior normal. Ananda Coma Scale Score: 15 ED Course [...] Basic metabolic panel Morning draw Final result [facility] 12/25/24 1223 CBC and Differential Morning draw Final result [facility] 12/25/24 1223 Magnesium, Plasma Morning draw Final result [facility] 12/25/24 1223 Phosphorus Morning draw Final result [facility] 12/25/24 1223 PT/INR Morning draw Final result [facility] 12/25/24 1223 APTT Morning draw Final result [facility] 12/25/24 1223 Vitamin B12 Morning draw Final result [facility] 12/25/24 1223 Ferritin Morning draw Final result [facility] 12/25/24 1223 Iron & Total Iron Binding Capacity, Plasma (Includes Transferrin) Morning draw Final result [facility] 12/25/24 1223 Lipid panel Morning draw Final result [facility] 12/25/24 1223 Hemoglobin A1c Morning draw In process [facility] 12/25/24 1223 Cortisol Morning draw Final result [facility] 12/25/24 1223 Folate Morning draw Final result [facility] 12/25/24 1223 Hepatic Function Panel Morning draw Final result [facility] 12/25/24 1223 Intake and output Every 6 hours Acknowledged [facility] 12/25/24 1223 Ambulate patient 2 times daily Comments: Ambulate twice daily with assistance Acknowledged [facility] OMAR A 12/25/24 1223 Vital Signs Every 8 hours Placed in And Linked Group Acknowledged OBEY, OMAR A 12/25/24 1223 Pulse Oximetry Every 8 hours Placed in And Linked Group Acknowledged OBEYOMAR A 12/25/24 1223 Up in chair 3 times daily Acknowledged OBEYOMAR A 12/25/24 1223 Daily weights Daily Acknowledged OMAR BARNHART A 12/25/[address] Abdomen Pelvis w IV Contrast Once Final result OMAR BARNHART A 12/25/[address] Chest w IV Contrast Once In process OBEYYAMILKAOK A 12/25/[address] Head wo IV Contrast Once Final result OBEYOMAR A 12/25/24 1223 Inpatient consult - Oncology Once Specialty: Oncology Provider: (Not yet assigned) Completed OBEYOMAR A 12/25/24 1223 Inpatient consult to Surgical Oncology Once Provider: (Not yet assigned) Acknowledged OBEYOMAR A 12/25/24 1223 Okay To Give Nicotine Replacement Until discontinued Acknowledged OMAR BARNHART A 12/25/24 1223 Admit to inpatient Once Acknowledged OMAR BARNHART A 12/25/24 1223 Full code Continuous Acknowledged OMAR BARNHART A 12/25/24 1223 Adult diet Diet texture: Regular Diet effective now Acknowledged OMAR BARNHART A 12/25/24 1223 Mobility Orders Until discontinued Acknowledged OBEYOMAR A 12/25/24 1223 Notify physician (specify parameters) Until discontinued Acknowledged OBEY MOAR A 12/25/24 1223 Insert peripheral IV Once Placed in And Linked Group Acknowledged OBEY, OMAR A 12/25/24 1223 Saline lock IV Once Placed in And Linked Group Acknowledged OBEY, OMAR A 12/25/24 0812 Lipase STAT Final result OMAR BARNHART A 12/25/24 1024 Consult to Hospital Medicine [...] OMAR BARNHART ED Course as of 12/26/24 08TueDec 25, 2024 0815 Upon initial evaluation, patient [...] and. Disposition Admit Admitting/Attending Physician: BULMARO FONG [[id number]] Provider Care Team: MONIKA MELISSA 15 [[id number]] Are they the primary team?: Yes [1] Follow-Ups: Follow up with [facility] Multidisciplinary Oncology Clinic (Hematology and Oncology) Discharge Orders Ambulatory referral to Surgical Oncology Authorized Discharge Ambulatory referral to Hematology/Medical Oncology Authorized - [1] Past Medical History: Diagnosis Date A-fib ([facility]) CHF (congestive heart failure) ([facility]) Coronary artery disease Hypertension Lower back pain Numbness and tingling of both feet Spinal stenosis of lumbar region with neurogenic claudication 11/20/2021 Added automatically from request for surgery [id number] [2] Past Surgical History: Procedure Laterality Date [...] Description 01/24/2025 8:30 AM EDT Office Visit [facility] Multidisciplinary Oncology Clinic [address] [place] [address] Nito Balderas MD [address] [place] [address] Scheduled Referrals Name Type Priority Associated Diagnoses [...] ADULT TRANSTHORACIC COMPLETE (12/26/2024 9:55 AM EDT) [facility] BSA 1.81 m2 ALLEN ISCV Height 170.0 [...] Root Diam 31 mm ALLEN ISCV PA MN(ACCEL) 30.6 mmHg ALLEN ISCV LVLs ap2 8.8 [...] is no recent study available for direct [id number]-[id number] comparison. Left Ventricle The left ventricle is [...] is no recent study available for direct [id number] comparison. us Omar Barnhart MD CV ECHO PROCEDURES Final Resul t * (ABNORMAL) CEA (12/26/2024 2:50 AM EDT) CEA, Serum 8.5(H) <4.0 ng/mL 12/26/2024 3:56 AM EDT [facility] Blood Venous blood specimen / Unknown Venipuncture / Unknown 12/26/2024 2:50 AM EDT 12/26/2024 3:17 AM EDT Narrative [facility] - 12/26/2024 3:56 AM EDT Normal range for smokers: < 5.5 ng/ml Normal range for non-smokers: <=4.0 ng/ml Performed by Luiza electrochemiluminescent immunoassay. Results obtained with different test methods or kits cannot be used interchangeably. us Omar Barnhart MD LAB BLOOD ORDERABLES Final Res ult Performing Organization Address [facility] Co de Phone Number [facility] [address] [place] [address] * (ABNORMAL) Cancer antigen 19-9 (12/26/2024 2:50 AM EDT) CA 19.9 248(H) <36 U/mL 12/26/2024 3:56 AM EDT [facility] Blood Venous blood specimen / Unknown Venipuncture / Unknown 12/26/2024 2:50 AM EDT 12/26/2024 3:17 AM EDT [facility] - 12/26/2024 3:56 AM EDT Performed by Luiza electrochemiluminescent immunoassay. Results obtained with different test methods or kits cannot be used interchangeably. us Omar Barnhart MD LAB BLOOD ORDERABLES Final Res ult Performing Organization Address City/[facility]/ZIP Co de Phone Number [facility] [address] [place] [address] * (ABNORMAL) Prealbumin (12/26/2024 2:50 AM EDT) Prealbumin, Plasma 10.0(L) 20.0 - 41.0 mg/dL 12/26/2024 3:47 AM EDT [facility] Blood Venous blood specimen / Unknown Venipuncture / Unknown 12/26/2024 2:50 AM EDT 12/26/2024 3:09 AM EDT us Iesha Pride MD LAB BLOOD ORDERABLE S Final Result Performing Organization Address [facility]/ZIP Co de Phone Number [facility] [address] [place] [address] * (ABNORMAL) N-Terminal Probnp (12/26/2024 2:50 AM EDT) N-Terminal, PROBNP, Plasma 4,363(H) 0 - 899 pg/mL 12/26/2024 3:46 AM EDT [facility] Blood Venous blood specimen / Unknown Venipuncture / Unknown 12/26/2024 2:50 AM EDT 12/26/2024 3:09 AM EDT us Omar Barnhart MD LAB BLOOD ORDERABLES Final Res ult Performing Organization Address [facility] Co de Phone Number [facility] [address] [place] [address] * (ABNORMAL) Hepatic Function Panel (12/26/2024 2:50 AM EDT) Conjugated Bilirubin, Plasma 0.6(H) <=0.3 mg/dL 12/26/2024 3:46 AM EDT [facility] Comment:Hemolyzed, result ma y be falsely decreased. Alkaline Phosphatase, Plasma 160(H) 40 - 115 U/L 12/26/2024 3:46 AM EDT [facility] Total Bilirubin, Plasma 1.8(H) 0.2 - 1.1 mg/dL 12/26/2024 3:46 AM EDT [facility] Albumin, Plasma 3.4(L) 3.5 - 5.2 g/dL 12/26/2024 3:46 AM EDT [facility] Total Protein 6.0(L) 6.3 - 7.9 g/dL 12/26/2024 3:46 AM EDT [facility] ALT, Plasma 102(H) 10 - 50 U/L 12/26/2024 3:46 AM EDT [facility] AST, Plasma 32 10 - 50 U/L 12/26/2024 3:46 AM EDT [facility] Comment:Hemolyzed, result ma y be falsely increased. Blood Venous blood specimen / Unknown Venipuncture / Unknown 12/26/2024 2:50 AM EDT 12/26/2024 3:09 AM EDT us Omar Barnhart MD LAB BLOOD ORDERABLES Final Res ult Performing Organization Address [facility] Co de Phone Number [facility] [address] [place] [address] * Folate (12/26/2024 2:50 AM EDT) Folate, Serum 5.8 >4.6 ng/mL 12/26/2024 4:05 AM EDT [facility] Blood Venous blood specimen / Unknown Venipuncture / Unknown 12/26/2024 2:50 AM EDT 12/26/2024 3:17 AM EDT us Omar Barnhart MD LAB BLOOD ORDERABLES Final Res ult Performing Organization Address City/[facility]/ZIP Co de Phone Number [facility] [address] [place] [address] * Cortisol (12/26/2024 2:50 AM EDT) Cortisol 13.00 Before 10am: 3.7 - 19.4. After 5pm: 2.9 - 17.3 ug/dL 12/26/2024 4:24 AM EDT [facility] Comment:Testing performed on [employer], standardized against SNF Reference Standard concentration values assigned by LC-MS/MS and verified by BCR 192 and BCR 193 certified reference materials. Blood Venous blood specimen / Unknown Venipuncture / Unknown 12/26/2024 2:50 AM EDT 12/26/2024 3:17 AM EDT us Omar Barnhart MD LAB REF LAB BLOOD AND FLUID OR D Final Result Performing Organization Address [facility] Co de Phone Number [facility] [address] [place] [address] * (ABNORMAL) Hemoglobin A1c (12/26/2024 2:50 AM EDT) Hemoglobin A1c 6.5(H) <5.7 % 12/26/2024 10:53 AM EDT [facility] Blood Venous blood specimen / Unknown Venipuncture / Unknown 12/26/2024 2:50 AM EDT 12/26/2024 3:17 AM EDT Narrative [facility] - 12/26/2024 10:53 AM EDT HA1C Interpretive Data: Diagnosis of Diabetes: Diabetic > or = 6.5% Pre-diabetic 5.7 to 6.4% Non-diabetic < or = 5.6% Glycemic Targets for Type I and Type II Diabetics: Non- Adults <7.0% Adults <6.0% Children and Adolescents <7.5% Source: [place] [employer]. Standards of medical care in diabetes,2017. Diabetes Care.2017:40 (suppl 1):S1-S135. us Omar Barnhart MD LAB BLOOD ORDERABLES Final Res ult Performing Organization Address City/[facility] Co de Phone Number [facility] [address] [place] [address] * (ABNORMAL) Lipid panel (12/26/2024 2:50 AM EDT) Cholesterol, Plasma 119 <200 mg/dL 12/26/2024 3:46 AM EDT [facility] Comment: Cholesterol Reference Range (age >17 years): Desirable <200 mg/dL Borderline 200 to 239 mg/dL Undesirable >239 mg/dL HDL 37(L) >=40 mg/dL 12/26/2024 3:46 AM EDT [facility] Comment: HDL Cholesterol Reference Ranges (age >17 years): Female, acceptable > or = 50 mg/dL Male, acceptable > or = 40 mg/dL Triglycerides, Plasma 75 <150 mg/dL 12/26/2024 3:46 AM EDT [facility] Comment: Triglyceride Reference Range (age >17 years): Desirable: <150 mg/dL Borderline high: 150 to 199 mg/dL High: 200 to 499 mg/dL Very high: >499 mg/dL Increased risk of pancreatitis: >1000 mg/dL Cholesterol/HDL Ratio 3 12/26/2024 3:46 AM EDT [facility] LDL, Calculated 67 <100 mg/dL 3:46 AM EDT [facility] Comment: LDL Cholesterol Reference [...] 12 hours? No 12/26/2024 3:46 AM EDT [facility] Blood Venous blood specimen / Unknown Venipuncture / Unknown 12/26/2024 2:50 AM EDT 12/26/2024 3:09 AM EDT us Omar Barnhart MD LAB BLOOD ORDERABLES Final Res ult [facility] [address] [place] [address] * Iron & Total Iron Binding Capacity, Plasma (Includes Transferrin) (12/26/2024 2:50 AM EDT) Iron, Plasma 56 50 - 170 ug/dL 12/26/2024 3:46 AM EDT [facility] Transferrin, Plasma 214 200 - 360 mg/dL 12/26/2024 3:46 AM EDT [facility] Total Iron Binding Capacity, Plasma 268 240 - 450 ug/mL 12/26/2024 3:46 AM EDT [facility] Transferrin Saturation 21 14 - 50 % 12/26/2024 3:46 AM EDT [facility] Blood Venous blood specimen / Unknown Venipuncture / Unknown 12/26/2024 2:50 AM EDT 12/26/2024 3:09 AM EDT us Omar Barnhart MD LAB BLOOD ORDERABLES Final Res ult Performing Organization Address City/[facility] [place] [place] [address] * Ferritin (12/26/2024 2:50 AM EDT) Ferritin, Serum 113 20 - 400 ng/mL 12/26/2024 3:56 AM EDT [facility] Blood Venous blood specimen / Unknown Venipuncture / Unknown 12/26/2024 2:50 AM EDT 12/26/2024 3:17 AM EDT us Omar Barnhart MD LAB BLOOD ORDERABLES Final Res ult Performing Organization Address [facility] [place] [place] [address] * Vitamin B12 (12/26/2024 2:50 AM EDT) Vitamin B12, Serum 979 210 - 1,033 pg/mL 12/26/2024 4:05 AM EDT [facility] Blood Venous blood specimen / Unknown Venipuncture / Unknown 12/26/2024 2:50 AM EDT 12/26/2024 3:17 AM EDT us Omar Barnhart MD LAB BLOOD ORDERABLES Final Res ult Performing Organization Address [facility] [place] [address] * (ABNORMAL) APTT (12/26/2024 2:50 AM EDT) aPTT 36(H) 25 - 35 sec 12/26/2024 3:24 AM EDT [facility] Blood Venous blood specimen / Unknown Venipuncture / Unknown 12/26/2024 2:50 AM EDT 12/26/2024 3:09 AM EDT us Omar Barnhart MD LAB BLOOD ORDERABLES Final Res ult Performing Organization Address [facility] Co de Phone Number [facility] [address] [place] [address] * (ABNORMAL) PT/INR (12/26/2024 2:50 AM EDT) Prothrombin Time 16.6(H) 12.0 - 14.3 sec 12/26/2024 3:24 AM EDT [facility] INR 1.4(H) 0.9 - 1.1 12/26/2024 3:24 AM EDT [facility] Blood Venous blood specimen / Unknown Venipuncture / Unknown 12/26/2024 2:50 AM EDT 12/26/2024 3:09 AM EDT Narrative [facility] - 12/26/2024 3:24 AM EDT OPTIMAL INR RANGES FOR PATIENT ON ORAL ANTICOAGULANT THERAPY Prevention of venous thromboembolism INR 2.0 to 3.0 In patients with heart disease: Atrial fibrillation INR 2.0 to 3.0 Valvular heart disease INR 2.0 to 3.0 Tissue heart valves INR 2.0 to 3.0 Mechanical prosthetic valves INR 2.5 to 3.5 Prevention of recurrent HI INR 2.5 to 3.5 us Omar Barnhart MD LAB BLOOD ORDERABLES Final Res ult Performing Organization Address [facility] Co de Phone Number [facility] [address] [place] [address] * Phosphorus (12/26/2024 2:50 AM EDT) Phosphorus, Plasma 3.5 2.5 - 4.5 mg/dL 12/26/2024 3:47 AM EDT [facility] Blood Venous blood specimen / Unknown Venipuncture / Unknown 12/26/2024 2:50 AM EDT 12/26/2024 3:09 AM EDT us Omar Barnhart MD LAB BLOOD ORDERABLES Final Res ult Performing Organization Address City/[facility]/ZIP Co de Phone Number [facility] [address] [place] [address] * Magnesium, Plasma (12/26/2024 2:50 AM EDT) Pathologist [facility] Magnesium, Plasma 2.1 1.9 - 2.4 mg/dL 12/26/2024 3:46 AM EDT [facility] Blood Venous blood specimen / Unknown Venipuncture / Unknown 12/26/2024 2:50 AM EDT 12/26/2024 3:09 AM EDT us Omar Barnhart MD LAB BLOOD ORDERABLES Final Res ult Performing Organization Address City/[facility]/ZIP Co de Phone Number [facility] [address] [place] [address] * (ABNORMAL) CBC and Differential (12/26/2024 2:50 AM EDT) [facility] WBC Count 9.17 3.70 - 10.30 10*3/uL LAB HEMATOLOGY METHOD 12/26/2024 3:14 AM EDT [facility] RBC Count 5.37 4.60 - 6.10 10*6/uL LAB HEMATOLOGY METHOD 12/26/2024 3:14 AM EDT [facility] HGB 15.5 13.7 - 17.5 g/dL LAB HEMATOLOGY METHOD 12/26/2024 3:14 AM EDT [facility] HCT 47.2 40.0 - 51.0 % LAB HEMATOLOGY METHOD 12/26/2024 3:14 AM EDT [facility] Platelet Count 236 155 - 369 10*3/uL LAB HEMATOLOGY METHOD 12/26/2024 3:14 AM EDT [facility] MCV 88 79 - 98 fL LAB HEMATOLOGY METHOD 12/26/2024 3:14 AM EDT [facility] MCH 28.9 26.0 - 32.0 pg LAB HEMATOLOGY METHOD 12/26/2024 3:14 AM EDT [facility] MCHC 32.8 30.7 - 35.5 g/dL LAB HEMATOLOGY METHOD 12/26/2024 3:14 AM EDT [facility] RDW 19.0(H) 11.5 - 14.5 % LAB HEMATOLOGY METHOD 12/26/2024 3:14 AM EDT [facility] MPV 11.5 8.8 - 12.5 fL LAB HEMATOLOGY METHOD 12/26/2024 3:14 AM EDT [facility] nRBC 0.0 <=0.0 per 100 WBCs LAB HEMATOLOGY METHOD 12/26/2024 3:14 AM EDT [facility] Differential Type Automated LAB HEMATOLOGY METHOD 12/26/2024 3:14 AM EDT [facility] Neutrophils % 67 % LAB HEMATOLOGY METHOD 12/26/2024 3:14 AM EDT [facility] Lymphocytes % 23 % LAB HEMATOLOGY METHOD 12/26/2024 3:14 AM EDT [facility] Monocytes % 6 % LAB HEMATOLOGY METHOD 12/26/2024 3:14 AM EDT [facility] Eosinophils % 3 % LAB HEMATOLOGY METHOD 12/26/2024 3:14 AM EDT [facility] Basophils % 1 % LAB HEMATOLOGY METHOD 12/26/2024 3:14 AM EDT [facility] Immature Granulocytes % 0 % LAB HEMATOLOGY METHOD 12/26/2024 3:14 AM EDT [facility] Neutrophils Absolute 6.20(H) 1.60 - 6.10 10*3/uL LAB HEMATOLOGY METHOD 12/26/2024 3:14 AM EDT [facility] Lymphocytes Absolute 2.09 1.20 - 3.90 10*3/uL LAB HEMATOLOGY METHOD 12/26/2024 3:14 AM EDT [facility] Monocytes Absolute 0.55 0.30 - 0.90 10*3/uL LAB HEMATOLOGY METHOD 12/26/2024 3:14 AM EDT [facility] Eosinophils Absolute 0.25 0.00 - 0.50 10*3/uL LAB HEMATOLOGY METHOD 12/26/2024 3:14 AM EDT [facility] Basophils Absolute 0.06 0.00 - 0.10 10*3/uL LAB HEMATOLOGY METHOD 12/26/2024 3:14 AM EDT [facility] Immature Granulocytes Absolute 0.02 0.00 - 0.06 10*3/uL LAB HEMATOLOGY METHOD 12/26/2024 3:14 AM EDT [facility] Blood Venous blood specimen / Unknown Venipuncture / Unknown 12/26/2024 2:50 AM EDT 12/26/2024 3:09 AM EDT Narrative [facility] - 12/26/2024 3:14 AM EDT Therapeutic decision making should be based on absolute values, rather than percentages. us Omar Barnhart MD LAB BLOOD ORDERABLES Final Res ult [facility] [address] [place] [address] * (ABNORMAL) Basic metabolic panel (12/26/2024 2:50 AM EDT) Glucose, Plasma 128(H) 74 - 99 mg/dL 12/26/2024 3:47 AM EDT [facility] BUN, Plasma 18 8 - 23 mg/dL 12/26/2024 3:47 AM EDT [facility] Creatinine, Plasma 1.10 0.70 - 1.20 mg/dL 12/26/2024 3:47 AM EDT [facility] BUN/Creatinine Ratio 16 12/26/2024 3:47 AM EDT [facility] Sodium, Plasma 139 136 - 145 mmol/L 12/26/2024 3:47 AM EDT [facility] Potassium, Plasma 4.7 3.6 - 4.9 mmol/L 12/26/2024 3:47 AM EDT [facility] Chloride, Plasma 105 97 - 107 mmol/L 12/26/2024 3:47 AM EDT [facility] CO2, Plasma 23 22 - 29 mmol/L 12/26/2024 3:47 AM EDT [facility] Anion Gap 11 6 - 16 mmol/L 12/26/2024 3:47 AM EDT [facility] Total Calcium, Plasma 8.9 8.9 - 10.2 mg/dL 12/26/2024 3:47 AM EDT [facility] eGFRcr 75.0 mL/min/1.7 3m*2 12/26/2024 3:47 AM EDT [facility] Comment:Reported eGFRcr in m L/min/1.73m2 is based the CKD-EPI 2020 equation that does not use a race coefficient. Blood Venous blood specimen / Unknown Venipuncture / Unknown 12/26/2024 2:50 AM EDT 12/26/2024 3:09 AM EDT us Omar Barnhart MD LAB BLOOD ORDERABLES Final Res ult [facility] [address] [place] [address] * CT Chest w IV Contrast (12/25/2024 [...] Romaine Raya MD on 12/26/2024 1:59 PM us Omar Barnhart MD IMG CT [...] - 63 U/L 12/25/2024 1:21 PM EDT [facility] Blood Venous blood specimen / Unknown Venipuncture / Unknown 12/25/2024 12:49 PM EDT 12/25/2024 12:52 PM EDT us Omar Barnhart MD LAB BLOOD ORDERABLES Final Res ult Performing Organization Address [facility] Co de Phone Number [facility] [address] [place] [address] * Phosphorus (12/25/2024 9:08 AM EDT) Phosphorus, Plasma 3.2 2.5 - 4.5 mg/dL 12/25/2024 10:01 AM EDT [facility] Blood Venous blood specimen / Unknown Venipuncture / Unknown 12/25/2024 9:08 AM EDT 12/25/2024 9:33 AM EDT us Danny Lucio MD LAB BLOOD ORDERABLES Final Re sult Performing Organization Address [facility] Co de Phone Number [facility] [address] [place] [address] * Magnesium (12/25/2024 9:08 AM EDT) Magnesium, Plasma 2.1 1.9 - 2.4 mg/dL 12/25/2024 10:01 AM EDT [facility] Blood Venous blood specimen / Unknown Venipuncture / Unknown 12/25/2024 9:08 AM EDT 12/25/2024 9:33 AM EDT us Danny Lucio MD LAB BLOOD ORDERABLES Final Re sult [facility] [address] [place] [address] * (ABNORMAL) CMP (12/25/2024 9:08 AM EDT) Glucose, Plasma 143(H) 74 - 99 mg/dL 12/25/2024 10:01 AM EDT [facility] BUN, Plasma 15 8 - 23 mg/dL 12/25/2024 10:01 AM EDT [facility] Creatinine, Plasma 0.95 0.70 - 1.20 mg/dL 12/25/2024 10:01 AM EDT [facility] BUN/Creatinine Ratio 16 12/25/2024 10:01 AM EDT [facility] Sodium, Plasma 139 136 - 145 mmol/L 12/25/2024 10:01 AM EDT [facility] Potassium, Plasma 5.2(H) 3.6 - 4.9 mmol/L 12/25/2024 10:01 AM EDT [facility] Comment:Hemolyzed, result ma y be falsely increased. Chloride, Plasma 106 97 - 107 mmol/L 12/25/2024 10:01 AM EDT [facility] CO2, Plasma 21(L) 22 - 29 mmol/L 12/25/2024 10:01 AM EDT [facility] Anion Gap 12 6 - 16 mmol/L 12/25/2024 10:01 AM EDT [facility] Total Calcium, Plasma 9.4 8.9 - 10.2 mg/dL 12/25/2024 10:01 AM EDT [facility] Total Protein 6.8 6.3 - 7.9 g/dL 12/25/2024 10:01 AM EDT [facility] Albumin, Plasma 3.9 3.5 - 5.2 g/dL 12/25/2024 10:01 AM EDT [facility] AST, Plasma 63(H) 10 - 50 U/L 12/25/2024 10:01 AM EDT [facility] Comment:Hemolyzed, result ma y be falsely increased. ALT, Plasma 131(H) 10 - 50 U/L 12/25/2024 10:01 AM EDT [facility] Comment:Hemolyzed, result ma y be falsely increased or decreased. Alkaline Phosphatase, Plasma 197(H) 40 - 115 U/L 12/25/2024 10:01 AM EDT [facility] Comment:Hemolyzed, result ma y be falsely decreased. Total Bilirubin, Plasma 2.5(H) 0.2 - 1.1 mg/dL 12/25/2024 10:01 AM EDT [facility] eGFRcr 89.4 mL/min/1.7 3m*2 12/25/2024 10:01 AM EDT [facility] Comment:Reported eGFRcr in m L/min/1.73m2 is based the CKD-EPI 2020 equation that does not use a race coefficient. Blood Venous blood specimen / Unknown Venipuncture / Unknown 12/25/2024 9:08 AM EDT 12/25/2024 9:33 AM EDT us Danny uLcio MD LAB BLOOD ORDERABLES Final Re sult [facility] [address] [place] [address] * (ABNORMAL) PT-INR (12/25/2024 9:08 AM EDT) Prothrombin Time 15.8(H) 12.0 - 14.3 sec 12/25/2024 9:51 AM EDT [facility] INR 1.3(H) 0.9 - 1.1 12/25/2024 9:51 AM EDT [facility] Blood Venous blood specimen / Unknown Venipuncture / Unknown 12/25/2024 9:08 AM EDT 12/25/2024 9:33 AM EDT Narrative [facility] - 12/25/2024 9:51 AM EDT OPTIMAL INR RANGES FOR PATIENT ON ORAL ANTICOAGULANT THERAPY Prevention of venous thromboembolism INR 2.0 to 3.0 In patients with heart disease: Atrial fibrillation INR 2.0 to 3.0 Valvular heart disease INR 2.0 to 3.0 Tissue heart valves INR 2.0 to 3.0 Mechanical prosthetic valves INR 2.5 to 3.5 Prevention of recurrent HI INR 2.5 to 3.5 us Danny Lucio MD LAB BLOOD ORDERABLES Final Re sult [facility] [address] [place] [address] * (ABNORMAL) CBC w/diff (12/25/2024 9:08 AM EDT) WBC Count 9.76 3.70 - 10.30 10*3/uL LAB HEMATOLOGY METHOD 12/25/2024 9:35 AM EDT [facility] RBC Count 5.91 4.60 - 6.10 10*6/uL LAB HEMATOLOGY METHOD 12/25/2024 9:35 AM EDT [facility] HGB 17.3 13.7 - 17.5 g/dL LAB HEMATOLOGY METHOD 12/25/2024 9:35 AM EDT [facility] HCT 50.3 40.0 - 51.0 % LAB HEMATOLOGY METHOD 12/25/2024 9:35 AM EDT [facility] Platelet Count 216 155 - 369 10*3/uL LAB HEMATOLOGY METHOD 12/25/2024 9:35 AM EDT [facility] MCV 85 79 - 98 fL LAB HEMATOLOGY METHOD 12/25/2024 9:35 AM EDT [facility] MCH 29.3 26.0 - 32.0 pg LAB HEMATOLOGY METHOD 12/25/2024 9:35 AM EDT [facility] MCHC 34.4 30.7 - 35.5 g/dL LAB HEMATOLOGY METHOD 12/25/2024 9:35 AM EDT [facility] RDW 19.2(H) 11.5 - 14.5 % LAB HEMATOLOGY METHOD 12/25/2024 9:35 AM EDT [facility] MPV 11.1 8.8 - 12.5 fL LAB HEMATOLOGY METHOD 12/25/2024 9:35 AM EDT [facility] nRBC 0.0 <=0.0 per 100 WBCs LAB HEMATOLOGY METHOD 12/25/2024 9:35 AM EDT [facility] Differential Type Automated LAB HEMATOLOGY METHOD 12/25/2024 9:35 AM EDT [facility] Neutrophils % 80 % LAB HEMATOLOGY METHOD 12/25/2024 9:35 AM EDT [facility] Lymphocytes % 13 % LAB HEMATOLOGY METHOD 12/25/2024 9:35 AM EDT [facility] Monocytes % 6 % LAB HEMATOLOGY METHOD 12/25/2024 9:35 AM EDT [facility] Eosinophils % 1 % LAB HEMATOLOGY METHOD 12/25/2024 9:35 AM EDT [facility] Basophils % 0 % LAB HEMATOLOGY METHOD 12/25/2024 9:35 AM EDT [facility] Immature Granulocytes % 0 % LAB HEMATOLOGY METHOD 12/25/2024 9:35 AM EDT [facility] Neutrophils Absolute 7.72(H) 1.60 - 6.10 10*3/uL LAB HEMATOLOGY METHOD 12/25/2024 9:35 AM EDT [facility] Lymphocytes Absolute 1.28 1.20 - 3.90 10*3/uL LAB HEMATOLOGY METHOD 12/25/2024 9:35 AM EDT [facility] Monocytes Absolute 0.56 0.30 - 0.90 10*3/uL LAB HEMATOLOGY METHOD 12/25/2024 9:35 AM EDT [facility] Eosinophils Absolute 0.13 0.00 - 0.50 10*3/uL LAB HEMATOLOGY METHOD 12/25/2024 9:35 AM EDT [facility] Basophils Absolute 0.04 0.00 - 0.10 10*3/uL LAB HEMATOLOGY METHOD 12/25/2024 9:35 AM EDT [facility] Immature Granulocytes Absolute 0.03 0.00 - 0.06 10*3/uL LAB HEMATOLOGY METHOD 12/25/2024 9:35 AM EDT [facility] Blood Venous blood specimen / Unknown Venipuncture / Unknown 12/25/2024 9:08 AM EDT 12/25/2024 9:33 AM EDT Narrative [facility] - 12/25/2024 9:35 AM EDT Therapeutic decision making should be based on absolute values, rather than percentages. us Danny Lucio MD LAB BLOOD ORDERABLES Final Re sult [facility] [address] [place] [address] documented in this encounter Visit Diagnoses Diagnosis [...] documented as of this encounter Care Teams Broadband Engineer Relationship Specialty Start Date End Date Raimundo Chirinos MD [facility] [address] [place] [address] PCP - General 11/18/21 Moiz Mcnally MD [address] [phone] Surgeon Neurosurgery 11/18/21 Bridgett Gonzales APRN [address] [phone] Nurse Practitioner Neurosurgery 01/07/22 Purvi Foy, RN [facility] INTERVENTIONAL RADIOLOGY Registered Nurse 12/26/24 12/26/24 documented as of this encounter
[2024-12-31 18:31] LABS: Alanine Aminotransferase 364 U/L (12-78); Albumin Level 4.1 g/dl (3.5-5.0); Albumin/Globulin Ratio 1.7 (1.1-1.8); Alkaline Phosphatase 209 U/L (38-126); Anion Gap 18.2 mEq/L (5-15); Aspartate Amino Transferase 263 U/L (17-59); Bilirubin,Total 8.6 mg/dl (0.2-1.3); Blood Urea Nitrogen 14 mg/dl (9-20); Calcium 8.8 mg/dl (8.4-10.2); Carbon Dioxide 25 mmol/L (22.0-30.0); Chloride 99 mmol/L (98-107); Creatinine,Serum 0.90 mg/dl (0.66-1.25); Estimated Glomerular Filt Rate 85 ml/min (>60); GFR (African American) 103 ML/MIN (>60); Globulin 2.4 g/dL (1.3-3.2); Glucose 94 mg/dl (74-100); Potassium 4.2 mmoL/L (3.5-5.1); Sodium 138 mmol/L (136-145); Total Protein,Serum 6.5 g/dl (6.3-8.2)
[2024-12-31 18:38] LABS: Lipase 1483 U/L (23-300)
--- OUTSIDE RECORDS SUMMARY | 2025-01-01 10:16 | XMS_ITS | Encounter Summary ---
Author Organization [facility] Address [address] [place] [address] Care Team Providers Care Furniture Finisher Helper Name Role Phone Raimundo Chirinos MD Primary Care Provider [phone] Moiz Mcnally MD Unavailable [phone] Bridgett Gonzales PVC LOADER Unavailable [phone] Purvi Foy RN Unavailable Unavailab le Encounter Details Date Type Department Care Team (Latest Contact Info) Description 12/26/2024 Travel Social History Tobacco Use Types Packs/Day Years [...] time in the past 12 m [facility], were you homeless or living in a group home (including now)? No 12/27/2024 CAGE ASSESSMENT [...] drink first t zeb in the morning (EYE-DITCHING MACHINE OPERATOR) to steady your nerves or to get rid of a hangover? 0 12/05/2024 CAGE Questionnaire Score 0 025 Utilities Answer Date Recorded In the past 12 months has th e [employer], gas, oil, or water company threatened to [...] Description 01/24/2025 8:30 AM EDT Office Visit [facility] Multidisciplinary Oncology Clinic [address] [place] [phone] Nito Balderas MD [address] [place] [phone] documented as of this encounter Visit Diagnoses Not on filedocumented in this encounter Additional Health Concerns Assessment Noted Time A fall risk assessment has been complete d for the patient 03/10/2022 9:47 AM EDT A Body Mass Index follow-up plan has been documented for the patient 12/26/2024 4:50 PM EDT documented as of this encounter Care Teams Furniture Finisher Helper Relationship Specialty Start Date End Date Raimundo Chirinos MD [address] [facility] [address] [place], [place] [id number] PCP - General 11/18/21 Moiz Mcnally MD [address] [facility] [place] [address] Surgeon Neurosurgery 11/18/21 Bridgett Gonzales APRN [address] [place] [address] Nurse Practitioner Neurosurgery 01/07/22 Purvi Foy, RN CH-VASCULAR & INTERVENTIONAL RADIOLOGY Registered Nurse 12/26/24 12/26/24 documented as of this encounter
--- OUTSIDE RECORDS SUMMARY | 2025-01-01 10:16 | XMS_ITS | Encounter Summary ---
Author Organization [facility] Address [address] [place] [address] Care Team Providers Care Supervisor Show Operations Name Role Phone Raimundo Chirinos MD Primary Care Provider [phone] Moiz Mcnally MD Unavailable [phone] Bridgett Gonzales A/C TECHNICIAN Unavailable [phone] Ynes Rocha LPN Unavailable Unavailab Terrance Hdez Unavailable Unavailable Reason for Visit * Reason Comments TCM Call Encounter Details Date Type Department Care Team (Late st Contact Info) Description 12/27/2024 Patient Outreach POPULATION [facility] [address] [facility] [place] [address] Ynes Rocha LPN [facility] TCM Call Social History Tobacco Use Types Packs/Day Years [...] any time in the past 12 m [facility], were you homeless or living in a residential (including now)? No 12/27/2024 CAGE ASSESSMENT Answer [...] drink first t zeb in the morning (EYE-BIOMEDICAL ANALYTICAL SCIENTIST) to steady your nerves or to get rid of a hangover? 0 12/05/2024 CAGE Questionnaire Score 0 025 Utilities Answer Date Recorded In the past 12 months has e [employer], gas, oil, or water company threatened to shut off services in your home? No 12/27/2024 Sex and Gender Information Value Date Recorded Sex Assigned at Not on file Legal Sex Male 6:38 PM EDT Gender Identity Not on file Sexual Orientation Not on file documented as of this encounter Miscellaneous Notes * Progress Notes - Ynes RochaENRICO - 12/27/2024 10:59 AM EDT Admit Date: 12/25/2024 Discharge Date: 12/26/2024 Hospital Service: [facility] Discharge Diagnosis: Malignant neoplasm of pancreas, unspecified location of malignancy 12/27/2024 TCM call # 1 Patient Reached: Y Outcome: Called patient for TCM nurse call. Advised patient that he would need to follow up with his PCP. Patient states that he was planning to call and set up an appointment today. Patient states they will have transportation to appointment. Patient states since being home they are doing good. Patient denies N/V/D, fever, SOA, abdominal pain, chest pain, or chills. Patient is eating, drinking, and using the restroom normally. Medications were reviewed with patient and patient states that he did not cigar packer and picker his medications yet, and that he was notified the pharmacy had only received his zofran medication. SDOH needs were updated with patient and patient would like to discuss needs for foodand utilities. Patient did not voice any other questions or concerns during TCM call. Action: CHW referral placed for sdoh needs. [facility] pharmacy in [place] contacted to see if medications were ready for patient to cigar packer and picker. Spoke with Alessia and she states medications are ready for patient to cigar packer and picker. 12:02pm Patient called and notified discharge medications are ready for cigar packer and picker. Medication changes: Per AVS Start: aspirin 81 MG EC tablet Take 1 tablet by mouth daily. metoprolol succinate XL 25 MG 24 hr tablet Commonly known as: Toprol-XL Take 1 tablet by mouth daily naloxone 4 mg/0.1 mL nasal spray Commonly [...] (Breakthrough pain) for up to 7 days. [facility] appointment: Patient is calling PCP for appointment Items to address at [facility]: -Cardiology referral -CMP documented in this encounter Plan of Treatment Upcoming Encounters Date Type Department Care Team (Late st Contact Info) Description 01/24/2025 8:30 AM EDT Office Visit [facility] Multidisciplinary Oncology Clinic [address] [place] [phone] Nito Balderas MD [address] [place] [address] documented as of this encounter Visit Diagnoses Not on filedocumented in this encounter Additional Health Concerns Assessment Noted Time A fall risk assessment has been complete d for the patient 03/10/2022 9:47 AM EDT A Body Mass Index follow-up plan has been documented for the patient 12/26/2024 4:50 PM EDT documented as of this encounter Care Teams Supervisor Show Operations Relationship Specialty Start Date End Date Raimundo Chirinos MD [id number] [place] [address] PCP - General 11/18/21 Moiz Mcnally MD [address] [phone] Surgeon Neurosurgery 11/18/21 Bridgett Gonzales APRN [address] [place] [phone] Nurse Practitioner Neurosurgery 01/07/22 Ynes Rocha LPN [facility] TCM Nurse 12/27/24 Terrance Corral Community Health Worker 12/27/24 documented as of this encounter
--- OUTSIDE RECORDS SUMMARY | 2025-01-01 10:16 | XMS_ITS | Encounter Summary ---
Author Organization [facility] Address [address] [place] [address] Care Team Providers Care Chief Engineer'S Helper Name Role Phone Raimundo Chirinos MD Primary Care Provider [phone] Moiz Mcnally MD Unavailable [phone] Bridgett Gonzales BOOK SOLICITOR Unavailable [phone] Purvi Foy RN Unavailable Unavailab Ynes Lozano JOURNEYMAN PAINTER Unavailable Unavailab Terrance Hdez Unavailable Unavailable Reason for Visit * Reason Comments Link Encounter Details Date Type Department Care Team (Late st Contact Info) Description 12/26/2024 Patient Outreach POPULATION [facility] [address] [place] [address] Purvi Foy, RN CH-VASCULAR & INTERVENTIONAL RADIOLOGY Link Social History Tobacco Use Types Packs/Day Years [...] any time in the past 12 m [facility], were you homeless or living in a custodial (including now)? No 12/27/2024 CAGE ASSESSMENT Answer [...] drink first t zeb in the morning (EYE-BELT CLEANER) to steady your nerves or to get [...] encounter Miscellaneous Notes * Progress Notes - Purvi Foy, RN - 12/26/2024 11:05 AM EDT Patient identified for LINK program. Program was closed at the time of review. Following chart review, patient determined to be ineligible based on program criteria. documented in this encounter Plan of Treatment Upcoming Encounters Date Type Department Care Team (Late st Contact Info) Description 01/24/2025 8:30 AM EDT Office Visit [facility] Multidisciplinary Oncology Clinic [address] [place] [phone] Nito Balderas MD [address] [place] [address] documented as of this encounter Visit Diagnoses Not on filedocumented in this encounter Additional Health Concerns Assessment Noted Time A fall risk assessment has been complete d for the patient 03/10/2022 9:47 AM EDT A Body Mass Index follow-up plan has been documented for the patient 12/26/2024 4:50 PM EDT documented as of this encounter Care Teams Chief Engineer'S Helper Relationship Specialty Start Date End Date Raimundo Chirinos MD [address] [place] [address] [address] [place] [address] PCP - General 11/18/21 Moiz Mcnally MD [address] [place] [phone] Surgeon Neurosurgery 11/18/21 Bridgett Gonzales APRN [address] [place] [phone] Nurse Practitioner Neurosurgery 01/07/22 Purvi Foy, RN CH-VASCULAR & INTERVENTIONAL RADIOLOGY Registered Nurse 12/26/24 12/26/24 Ynes Rocha LPN [facility] TCM Nurse 12/27/24 Terrance Corral Community Health Worker 12/27/24 documented as of this encounter
--- OUTSIDE RECORDS SUMMARY | 2025-01-01 10:16 | XMS_ITS | Encounter Summary ---
Author Organization [facility] Address [address] [place] [address] Care Team Providers Care Traction Power Engineer Name Role Phone Raimundo Chirinos MD Primary Care Provider [phone] Moiz Mcnally MD Unavailable [phone] Bridgett Gonzales SELF PROPELLED HOT MIX ROLLER OPERATOR Unavailable [phone] Purvi Foy RN Unavailable Unavailab Ynes Lozano CORPORATE AUDITOR Unavailable Unavailab Terrance Hdez Unavailable Unavailable Reason for Referral * Consultation (Urgent) - Authorized Specialty Diagnoses / Procedures Referred By Contact Referred To Contact Surgical Oncology / Hematology and Oncology Diagnoses Mass of head of pancreas Adenocarcinoma of head of pancreas (CMS/HCC) Darian Jaramillo MD [address] [facility] [address] [place] [address] Phone: tel:[phone] fax:[phone] [facility] Multidisciplinary Oncology Clinic [address] [place] [address] Phone: tel: fax: Referral ID Status Reason Start Date Expiration Date Visits Requested Visits Authorized [id number] Authorized Specialty Services Required 12/24/2024 06/25/2026 1 1 Encounter Details Date Type Department Care Team (Late st Contact Info) Description 12/24/2024 Orders Only [facility] Medicine Specialties [address] [place] [address] Darian Jaramillo MD [address] [place] [address] Adenocarcinoma of head of pancreas (CMS/HCC) (Primary Dx); Mass of head of pancreas Social History Tobacco Use Types Packs/Day Years [...] any time in the past 12 m [facility], were you homeless or living [...] drink first t zeb in the morning (EYE-SHACTOR) to steady your nerves or to get rid of a hangover? 0 12/05/2024 CAGE Questionnaire Score 0 025 Utilities Answer Date Recorded In the past 12 months has th e [employer], gas, oil, or water company threatened to [...] Fernandez RN documented as of this encounter Plan of Treatment Upcoming Encounters Date Type Department Care Team (Late st Contact Info) Description 01/24/2025 8:30 AM EDT Office Visit [facility] Multidisciplinary Oncology Clinic [address] [place] [address] Nito Balderas MD [address] [place] [address] Scheduled Referrals Name Type Priority Associated Diagnoses Order Schedule Ambulatory referral to Surgical Oncology Outpatient Referral Routine Mass of head of pancreas Adenocarcinoma of head of pancreas (CMS/HCC) Expected: 12/24/2024 (Approximate), Expires: 06/27/2026 documented as of this encounter Visit Diagnoses Diagnosis Adenocarcinoma of head of pancreas (CMS/HCC)- Primary Mass of head of pancreas documented in this encounter Additional Health Concerns Assessment Noted Time A fall risk assessment has been complete d for the patient 03/10/2022 9:47 AM EDT A Body Mass Index follow-up plan has been documented for the patient 12/07/2024 6:16 PM EDT documented as of this encounter Care Teams Traction Power Engineer Relationship Specialty Start Date End Date Raimundo Chirinos MD [address] [place], [place] [address] [address] [place] [address] PCP - General 11/18/21 Moiz Mcnally MD [address] [facility] [place] [address] Surgeon Neurosurgery 11/18/21 Bridgett Gonzales APRN [address] [place] [address] Nurse Practitioner Neurosurgery 01/07/22 Purvi Foy RN CH-VASCULAR & INTERVENTIONAL RADIOLOGY Registered Nurse 12/26/24 12/26/24 Ynes Rocha LPN [facility] TCM Nurse 12/27/24 Terrance Corral Community Health Worker 12/27/24 documented as of this encounter
--- OUTSIDE RECORDS SUMMARY | 2025-01-01 10:16 | XMS_ITS | Encounter Summary ---
Author Organization Healthcare Address [address] [place] [address] Care Team Providers Care Attractions Associate Name Role Phone Raimundo Chirinos MD Primary Care Provider [phone] Moiz Mcnally MD Unavailable [phone] Bridgett Gonzales SALES OFFICE COORDINATOR Unavailable [phone] Ynes Rocha BRIDGE WORKER APPRENTICE Unavailable Unavailab Terrance Hdez Unavailable Unavailable Reason for Visit * Reason Comments Community Resources Encounter Details Date Type Department Care Team (Late st Contact Info) Description 12/27/2024 Patient Outreach [facility] [address], [address] [place] [address] Terrance Corral Community Resources Social History Tobacco Use Types Packs/Day Years [...] the past [address] [facility], were you homeless or living in a fdc (including now)? No 12/27/2024 CAGE ASSESSMENT Answer [...] drink first t zeb in the morning (EYE-SUPERVISOR NEWSPAPER DELIVERIES) to steady your nerves or to get rid of a hangover? 0 12/05/2024 CAGE Questionnaire Score 0 025 Utilities Answer Date Recorded In the past 12 months has th e [employer], gas, oil, or water company threatened to shut off services in your home? No 12/27/2024 Sex and Gender Information Value Date Recorded Sex Assigned at Not on file Legal Sex Male 6:38 PM EDT Gender Identity Not on file Sexual Orientation Not on file documented as of this encounter Miscellaneous Notes * Progress Notes - Terrance Corral - 12/27/2024 2:41 PM EDT CHW Initial Encounter Note 12/27/2024 Urgent or Non-Urgent Referral: Non Urgent Pilot Plant Research Technician: No Preferred Language: [place] Verdean Pilot Plant Research Technician ID: Outreach 1: 12/27/24 - left vm Outreach 2: Outreach 3: Contact Methods: Phone SDOH Pre-Assessment/Health Maintenance: Utilities: [Unable to pay utilities] and Food: [access to food, any issues, etc.] SDOH Overview: SDOH Intervention: Pt enrolled in CHW Program: Yes Next follow-up scheduled: Notes for next follow-up: documented in this encounter Plan of Treatment Upcoming Encounters Date Type Department Care Team (Late st Contact Info) Description 01/24/2025 8:30 AM EDT Office Visit [facility] Multidisciplinary Oncology Clinic [address] [place] [address] Nito Balderas MD [address] [place] [address] documented as of this encounter Visit Diagnoses Not on filedocumented in this encounter Additional Health Concerns Assessment Noted Time A fall risk assessment has been complete d for the patient 03/10/2022 9:47 AM EDT A Body Mass Index follow-up plan has been documented for the patient 12/26/2024 4:50 PM EDT documented as of this encounter Care Teams Attractions Associate Relationship Specialty Start Date End Date Raimundo Chirinos MD [address] [place] [address] PCP - General 11/18/21 Moiz Mcnally MD [address] [place] [address] Surgeon Neurosurgery 11/18/21 Bridgett Gonzales APRN [address] [place] [address] Nurse Practitioner Neurosurgery 01/07/22 Ynes Rocha LPN [facility] TCM Nurse 12/27/24 Terrance Corral Community Health Worker 12/27/24 documented as of this encounter
--- OUTSIDE RECORDS SUMMARY | 2025-01-01 10:16 | XMS_ITS | Encounter Summary ---
Author Organization [facility] Address [address] [place] [address] Care Team Providers Care Roll Carrier Name Role Phone Raimundo Chirinos MD Primary Care Provider [phone] Moiz Mcnally MD Unavailable [phone] Bridgett Gonzales SOLUTIONS SPECIALIST Unavailable Encounter Details Date Type Department Care Team (Latest Contact Info) Description 12/25/2024 Travel Social History Tobacco Use Types Packs/Day [...] any time in the past 12 m [facility], were you homeless or living in [...] drink first t zeb in the morning (EYE-MIXER WHIPPED TOPPING) to steady your nerves or to get rid of a hangover? 0 12/05/2024 CAGE Questionnaire Score 0 025 Utilities Answer Date Recorded In the past 12 months has th e [employer], gas, oil, or water company threatened to [...] Risk Indicated 12/25/2024 4:00 PM EDT Edmar Fernandez, KENNETH * Question Answer Date of Assessment Author 1. Wish to be (Past 1 Month) No 025 4:00 PM ROULAT Edmar Fernandez RN 2. Non-Specific Active Suici sharita Thoughts (Past 1 Month) No 12/25/2024 4:00 PM EDT Ambar Fernandez RN 6. Suicidal Behavior (Lifetime) No 4:00 PM EDT Edmar Fernandez RN documented as of this encounter Plan of Treatment Upcoming Encounters Date Type Department Care Team (Late st Contact Info) Description 01/24/2025 8:30 AM EDT Office Visit [facility] Multidisciplinary Oncology Clinic [address] [place] [address] Nito Balderas MD [address] [place] [address] documented as of this encounter Visit Diagnoses Not on filedocumented in this encounter Additional Health Concerns Assessment Noted Time A fall risk assessment has been complete d for the patient 03/10/2022 9:47 AM EDT A Body Mass Index follow-up plan has been documented for the patient 12/26/2024 4:50 PM EDT documented as of this encounter Care Teams Roll Carrier Relationship Specialty Start Date End Date Raimundo Chirinos MD [address] [facility] [address] [place] [address] PCP - General 11/18/21 Moiz Mcnally MD [address] [place] [phone] Surgeon Neurosurgery 11/18/21 Bridgett Gonzales APRN [address] [place] [address] Nurse Practitioner Neurosurgery 01/07/22 documented as of this encounter
--- OUTSIDE RECORDS SUMMARY | 2025-01-01 10:17 | XMS_ITS | Encounter Summary ---
Author Organization [facility] Address [address] [place] [address] Care Team Providers Care Posting Machine Operator Name Role Phone Raimundo Chirinos MD Primary Care Provider [phone] Moiz Mcnally MD Unavailable [phone] Bridgett Gonzales BAG VALVER Unavailable [phone] Encounter Details Date Type Department Care Team (Late st Contact Info) Description 12/03/2024 Orders Only External Location [address] [place] [address] Thomas Hood PA [address] [place] [address] Social History Tobacco Use Types Packs/Day Years [...] any time in the past 12 m [facility], were you homeless or living in a detention (including now)? No 12/06/2024 CAGE ASSESSMENT Answer [...] drink first t zeb in the morning (EYE-CONCRETE BOOM PUMP OPERATOR) to steady your nerves or to [...] No Risk Indicated 12/07/2024 8:00 AM EDT IrvinMonique gomez RN * Question Answer Date of Assessment Author 1. Wish to be (Past 1 Month) No 025 8:00 AM EDT Monique Bryan RN 2. Non-Specific Active Suici sharita Thoughts (Past 1 Month) No 12/07/2024 8:00 AM EDT Thea Bryan, RN 6. Suicidal Behavior (Lifetime) No 8:00 AM EDT Monique Bryan RN documented as of this encounter Plan of Treatment Upcoming Encounters Date Type Department Care Team (Late st Contact Info) Description 01/24/2025 8:30 AM EDT Office Visit [facility] Multidisciplinary Oncology Clinic [address] [place] [address] Niot Balderas MD [address] [place] [address] documented as of this encounter Procedures Procedure Name Priority Date/Time Associated Diagnosis Comments XR OUTSIDE IMAGES 12/03/2024 5:23 PM EDT documented in this encounter Results * XR OUTSIDE IMAGES (12/03/2024 5:23 PM EDT) Anatomical Region Laterality Modality Radiographic Koki ging 12/03/2024 5:23 PM EDT Thomas CAMARILLO IMG XR PROCEDURES Final Result documented in this encounter Visit Diagnoses Not on filedocumented in this encounter Additional Health Concerns Assessment Noted Time A fall risk assessment has been complete d for the patient 03/10/2022 9:47 AM EDT documented as of this encounter Care Teams Posting Machine Operator Relationship Specialty Start Date End Date Raimundo Chirinos MD [address] [facility] [address] [place] [address] PCP - General 11/18/21 Moiz Mcnally MD [address] [facility] [address] [place] [address] Surgeon Neurosurgery 11/18/21 Bridgett Gonzales APRN [address] [place] [address] Nurse Practitioner Neurosurgery 01/07/22 documented as of this encounter
--- OUTSIDE RECORDS SUMMARY | 2025-01-01 10:17 | XMS_ITS ---
Author Organization [facility] Address [address] [place] [address] Care Team Providers Care Instrumental Teacher Name Role Phone Raimundo Chirinos MD Primary Care Provider [phone] Moiz Mcnally MD Unavailable [phone] Bridgett Gonzales FEDERAL JUDICIAL LAW CLERK Unavailable [phone] Ynes Rocha OPERATIONS PROJECT MANAGER Unavailable Unavailab Terrance Hdez Unavailable Unavailable Community Health Work Status:Active (Active) Start date:12/27/2024 Enrollment date:12/31/2024 Overview This episode type is for outpatient Community Health Workers enrolling patients in their program. Case Team Name Relationship Phone Terrance Corral(Responsible Staff) Community Health Worker Continued Care and Services Coordination
--- OUTSIDE RECORDS SUMMARY | 2025-01-01 10:17 | XMS_ITS | Encounter Summary ---
Author Organization [facility] Address [address] [place] [address] Care Team Providers Care Distribution Agent Name Role Phone Raimundo Chirinos MD Primary Care Provider [phone] Moiz Mcnally MD Unavailable [phone] rBidgett Gonzales J2EE JAVA DEVELOPER Unavailable [phone] Encounter Details Date Type Department Care Team (Latest Contact Info) Description 12/20/2024 Travel Social History Tobacco Use Types Packs/Day [...] any time in the past 12 m [facility], were you homeless or living in a mcfp (including now)? No 12/06/2024 CAGE ASSESSMENT Answer [...] first t zeb in the morning (EYE-MANAGER NON PROFIT) to steady your nerves or to get [...] 01/24/2025 8:30 AM EDT Office Visit [facility] Multidisciplinary Oncology Clinic [address] [place] [address] Nito Balderas MD [address] [place] [address] documented as of this encounter Visit Diagnoses Not on filedocumented in this encounter Additional Health Concerns Assessment Noted Time A fall risk assessment has been complete d for the patient 03/10/2022 9:47 AM EDT A Body Mass Index follow-up plan has been documented for the patient 12/07/2024 6:16 PM EDT documented as of this encounter Care Teams Distribution Agent Relationship Specialty Start Date End Date Raimundo Chirinos MD [address] [place] [address] [address] [place] [address] PCP - General 11/18/21 Moiz Mcnally MD [address] [place] [address] Surgeon Neurosurgery 11/18/21 Bridgett Gonzales APRN [address] [place] [address] Nurse Practitioner Neurosurgery 01/07/22 documented as of this encounter
--- OUTSIDE RECORDS SUMMARY | 2025-01-01 10:17 | XMS_ITS | Encounter Summary ---
Author Organization [facility] Address [address] [place] [address] Care Team Providers Care Tax Accounting Manager Name Role Phone Raimundo Chirinos MD Primary Care Provider [phone] Moiz Mcnally MD Unavailable [phone] Bridgett Gonzales TICKET COLLECTOR Unavailable [phone] Purvi Foy RN Unavailable Unavailab Ynes Lozano PARTS SALES ADVISOR Unavailable Unavailab Terrance Hdez Unavailable Unavailable Reason for Visit * Reason Comments Med Refill Encounter Details Date Type Department Care Team (Late Contact Info) Description 06/17/2022 Refill [place] [facility] [address] [place] [address] Rocio Enamorado, TICKET COLLECTOR [address] [place] [address] Social History Tobacco Use Types [...] Encounters Date Type Department Care Team (Late Contact Info) Description 01/24/2025 8:30 AM EDT Office Visit [facility] Multidisciplinary Oncology Clinic [address] [place] [address] Nito Balderas MD [address] [place] [address] documented as of this encounter Visit Diagnoses Not on filedocumented in this encounter Additional Health Concerns Assessment Noted Time A fall risk assessment has been complete d for the patient 03/10/2022 9:47 AM EDT documented as of this encounter Care Teams Tax Accounting Manager Relationship Specialty Start Date End Date Raimundo Chirinos MD [facility] [address] [place] [address] PCP - General 11/18/21 Moiz Mcnally MD [address] [address] Surgeon Neurosurgery 11/18/21 Bridgett Gonzales APRN [address] [facility] [place] [address] Nurse Practitioner Neurosurgery 01/07/22 Purvi Foy, RN CH-VASCULAR & INTERVENTIONAL RADIOLOGY Registered Nurse 12/26/24 12/26/24 Ynes Rocha LPN [facility] TCM Nurse 12/27/24 Terrance Corral Community Health Worker 12/27/24 documented as of this encounter
--- OUTSIDE RECORDS SUMMARY | 2025-01-01 10:17 | XMS_ITS ---
Author Organization [facility] Address [address] [place] [address] Care Team Providers Care Duplicator Punch Set Up Operator Name Role Phone Raimundo Chirinos MD Primary Care Provider [phone] Moiz Mcnally MD Unavailable [phone] Bridgett Gonzales CALENDER MACHINE OPERATOR HELPER Unavailable [phone] Ynes Rocha LPN Unavailable Unavailab Terrance Hdez Unavailable Unavailable Active Problems * This document contains information received from the source organization and may not represent a complete record from that organization. Problem Noted Date Diagnosed Date Malignant neoplasm of pancre as, unspecified location of malignancy 12/25/2024 Assessment & Plan (12/26/2024 12:10 PM EDT): - Timing of Whipple TBD - Nutritional optimization - Preoperative cardiac risk stratification No associated orders from this encounter found during lookback period of 72 hours. Upper abdominal pain 12/06/2024 Moderate protein-calorie malnutrition 12/06/2024 Pancreatic mass 12/05/2024 Mass of head of pancreas 12/04/2024 Acute pancreatitis 12/04/2024 Assessment & Plan (12/26/2024 12:29 PM EDT): Consider low fat diet Multimodal pain and nausea management Orders from past 72 hours: Discharge Ambulatory referral to Hematology/Medical Oncology; Future Ambulatory referral to Surgical Oncology; Future ELDER (acute kidney injury) 12/04/2024 Hyponatremia 12/04/2024 Chronic heart failure with preserved ejection fr action 12/04/2024 Overview (12/04/2024): -ECHO 05/19/2021: LVEF is variable d/t arrhythmia, but is visually estimated at 45 - 60%. Paroxysmal A-fib 12/04/2024 Essential hypertension 12/04/2024 Tobacco use disorder 12/04/2024 Spinal stenosis of lumbar re gion with neurogenic claudication 11/20/2021 Overview (11/20/2021): Added automatically from request for surgery [id number] Current Treatment and Therapy Plans No current plan information found. Past Treatment and Therapy Plans No past plan information found. Lifetime Dose Tracking * Chemical Lifetime Dose Automatic Entry Manual Entr y Fluoro Time 1.302 minutes 1.302 minutes 0 minutes Air Kerma 83.687 mGy 83.687 mGy 0 mGy
--- OUTSIDE RECORDS SUMMARY | 2025-01-01 10:17 | XMS_ITS | Clinical Summary ---
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 senna-docusate sodium (Senokot-S) 8.6-50 MG tablet Take 1 tablet by mouth 2 times a day as needed for constipation. 60 tablet 2 025 Active ondansetron ODT (Zofran-ODT) 4 MG disintegrating tablet Dissolve 1 tablet on the tongue every 6 hours as needed for nausea or vomiting. 90 tablet 025 Active gabapentin (Neurontin) 300 MG capsule Take 1 capsule by mouth 4 times a day. Active furosemide (Lasix) 40 MG tablet Take 1 tablet by mouth daily as needed. Active potassium chloride CR (Klor-Con M20) 20 MEQ ER tablet Take 1 tablet by mouth daily. Do not crush or chew. Active oxyCODONE (Roxicodone) 5 MG immediate release tablet Take 1 tablet by mouth every 6 hours as needed for severe pain (Breakthrough pain) for up to 7 days. 28 tablet 025 2024 Active naloxone (Narcan) 4 mg/0.1 mL nasal spray 1. Give 1 spray in nostril for no/slow breathing or cannot wake after opioid use 2. Call 911 3. Repeat in other nostril if symptoms continue 1 each Active metoprolol succinate XL (Toprol-XL) 25 MG 24 hr tablet Take 1 tablet by mouth daily. Do not crush or chew. 30 tablet 2024 Active aspirin 81 MG EC tablet Take 1 tablet by mouth daily. 30 tablet 2024 Active atorvastatin (Lipitor) 20 MG tablet Take 20 mg by mouth 1 (one) time each day. 2024 Discontinued(E ntered in Error) bisoprolol (Zebeta) 10 MG tablet Take 10 mg by mouth 1 (one) time each day. 2024 Discontinued(E ntered in Error) furosemide (Lasix) 40 MG tablet Take 40 mg by mouth 1 (one) time each day if needed. 2024 Discontinued lisinopril 5 MG tablet Take 5 mg by mouth 1 (one) time each day. 2024 Discontinued(E ntered in Error) potassium chloride CR (Klor-Con M20) 20 MEQ ER tablet Take 20 mEq by mouth 1 (one) time each day. With furosemide 2024 Discontinued zinc gluconate 50 MG tablet Take 50 mg by mouth 1 (one) time each day. 2024 Discontinued(E ntered in Error) rivaroxaban (Xarelto) 20 MG tablet Take 1 tablet (20 mg total) by mouth 1 (one) time each day. Take with food. 12/07/2021 2024 Discontinued(E ntered in Error) pregabalin (Lyrica) 150 MG capsule Take 1 capsule (150 mg total) by mouth 2 (two) times a day. 60 capsule 1 2024 Discontinued(E ntered in Error) gabapentin (Neurontin) 300 MG capsule Take 1 capsule by mouth 4 times a day. 2024 Discontinued(E ntered in Error) furosemide (Lasix) 40 MG tablet Take 2 tablets by mouth every other day. 025 2024 Discontinued(E ntered in Error) potassium chloride CR (Klor-Con M20) 20 MEQ ER tablet Take 2 tablets by mouth every other day. With furosemide 025 2024 Discontinued(E ntered in Error) oxyCODONE (Roxicodone) 5 MG immediate release tablet Take 1 tablet by mouth every 4 hours as needed for severe pain. 42 tablet 025 2024 Discontinued(E ntered in Error) levoFLOXacin (Levaquin) 500 MG tabletIndications :Acute pancreatitis, unspecified complication status, unspecified pancreatitis type Take 1 tablet by mouth daily for 5 days. 5 tablet 025 2024 Discontinued(E ntered in Error) ondansetron ODT (Zofran-ODT) 4 MG disintegrating tablet Dissolve 1 tablet on the tongue every 6 hours as needed for nausea. 12 tablet 2024 Discontinued(S top Taking at Discharge) Active Problems Problem Noted Date Diagnosed Date Malignant neoplasm [...] (11/20/2021): Added automatically from request for surgery [id number] Encounters * This document contains information received from the source organization and may not represent a complete record from that organization. Date Type Department Care Team Description 12/31/2024 Patient Outreach [address], [address] [address] Terrance Corral [facility] 12/27/2024 Patient Outreach [address], [address] [address] Terrance Corral [facility] 12/27/2024 Patient Outreach [address], [address] [address] Ynes Rocha LPN TCM Call 12/26/[address], [address] [address] Purvi Foy RN Link 12/26/2024 Travel 12/25/2024 7:53 AM EDT - 12/26/2024 5:05 PM EDT Hospital Encounter [facility] Emergency Department [address] [place] [address] Danny Lucio MD Oo, MD Bigg Chamberlain, Iesha Galvan MD Malignant neoplasm of pancreas, unspecified location of malignancy (CMS/HCC) (Primary Dx); Acute pancreatitis, unspecified complication status, unspecified pancreatitis type; Pancreatic mass; Epigastric pain; Nausea and vomiting, unspecified vomiting type; Malignant neoplasm of body of pancreas (CMS/HCC); Elevated lipase Discharge Disposition: Left Against Medical Advice 12/25/2024 Travel 12/24/2024 Orders Only [facility] [address], [address] [place] [address] Darian Jaramillo MD Adenocarcinoma of head of pancreas (CMS/HCC) (Primary Dx); Mass of head of pancreas 12/20/2024 7:53 AM EDT Anesthesia Event [facility] Endoscopy [address] [place] [address] Sae Barriga MD Hackett, Michael D, KIDS ACTIVITIES COACH 12/20/2024 7:36 AM EDT - 12/20/2024 11:59 PM EDT Hospital Encounter [facility] Radiology [address] [place] [address] History of ERCP Discharge Disposition: Home or Self Care 12/20/2024 6:31 AM EDT - 12/20/2024 7:35 AM EDT Hospital Encounter [facility] Endoscopy [address] [place] [address] Darian Jaramillo MD Acute pancreatitis, unspecified complication status, unspecified pancreatitis type (Primary Dx); Mass of head of pancreas Discharge Disposition: Home or Self Care 12/20/2024 Travel 12/12/2024 Telephone [facility] [address] [place] [address] Airam Man Scheduling 12/11/2024 Telephone [facility] End[facility] [address] [place] [address] Airam Man Scheduling 12/06/2024 Travel 12/05/2024 7:20 PM EDT - 12/07/2024 6:30 PM EDT Hospital Encounter [facility] Inpatient [address] [place] [id number] Padmini Fitzpatrick MD Miguel, Mitchell A, MD Upper abdominal pain (Primary Dx); Mass of head of pancreas Discharge Disposition: Home or Self Care 12/05/2024 Travel 12/04/2024 Travel 12/03/2024 Travel 12/03/2024 Orders Only External Location [address] [place] [address] Thomas Hood PA 12/03/2024 Orders Only External Location [address] [place] [address] Thomas Hood PA from Last 3 Months Family History Medical History Relation Name Comments Cancer Sister Relation Name Status Comments Sister Social History Tobacco Use Types Packs/Day Years Used Date Smoking Tobacco: Every Day Cigarettes 0.5 48 Smokeless Tobacco: Never Tobacco Cessation:Ready to Q uit: No; Counseling Given: Yes Alcohol Use Standard Drinks/Week Comments Never 0 [...] any time in the past 12 m [facility], were you homeless or living in a [place] health care facility (including now)? 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 0 12/05/2024 CAGE Questionnaire Score 0 025 Utilities Answer Date Recorded In the past 12 months has [employer], gas, oil, or water [employer] threatened to shut off services in your [...] Mass Index 24.28 12/25/2024 7:52 AM EDT Plan of Treatment Upcoming Encounters Date Type Department Care Team (Late st Contact Info) Description 01/24/2025 8:30 AM EDT Office Visit [facility] Multidisciplinary Oncology Clinic [address] [place] [phone] Nito Balderas MD [address] [place] [phone] Health Maintenance Due Date Last Done Comments [facility]-Depression Screening 1960 [facility]-Medicare Annual Wellness (AWV) 1960 [facility]-Infant/Child/Adol SDOH Screenings 1960 [id number] Vaccine (#1) 01/22/1965 [facility]-DTaP,Tdap,and Td Vaccine s (1 - Tdap) 01/22/1979 [facility]-Pneumococcal Vaccine: 50 + Years (1 of 2 - PCV) 01/22/1979 [facility]-Zoster Vaccines (1 of 2) 01/22/1979 CT Colonography 01/22/2005 Colonoscopy 01/22/2005 FIT-DNA 01/22/2005 FIT 01/22/2005 FOBT 01/22/2005 Sigmoidoscopy 01/22/2005 [facility]-Colorectal Cancer Screening 01/22/2005 [facility]-RSV Vaccine: 60+ Years o r (1 - Risk 60-74 years 1-dose series) 2020 [facility]-Influenza Vaccine (#1) 2025 [facility]- SDOH Screenings 06/07/2025 [facility]-Adult SDOH Screenings 06/07/2025 12/06/2024 [facility]-Lung Cancer Screening 12/25/2025 12/25/2024 [facility]-HIV Screening Completed 12/03/2024 [facility]-Hepatitis C Screening Completed 12/03/2024 [facility]-Diabetes: Hemoglobin A1C Discontinued 07/2024, 12/03/2024 HPV Vaccines Aged Out No longer eligi [...] this topic Medical Devices Implanted Type Area Relationship Associate Device Identifier Shelf Expiration Date Model / Serial / Lot Darling Brito [id number] Domitila [id number] Dg - [id number] - [id number] Implanted:Qty: 1 on 12/11/2021 by Moiz Mcnally MD at [facility] Cage Spine Lumbar [employer] [id number] 09/16/2024 [id number] / [id number] Matrix Fibergraft Bg Lg 12.5cc - [id number] Implanted:Qty: 1 on 12/11/2021 by Moiz Mcnally MD at [facility] Spine Lumbar DePuy Spine Sales [id number] 02/06/2024 [id number] / / [id number] Screw 5.5mm Viper Ti Fen Crtcl Polyax 7mm X 55mm - [id number] Implanted:Qty: 4 on 12/11/2021 by Moiz Mcnally MD at [facility] Spine Lumbar DePuy Spine Sales [place] [id number] / / Screw 5.5mm Viper Ti Fen Crtcl Polyax 8mm X 50mm - [id number] Implanted:Qty: 4 on 12/11/2021 by Moiz Mcnally MD at [facility] Spine Lumbar DePuy Spine [place] [address] [id number] / / Pre-Lordosed Juventino W/ Line 95mm - [id number] Implanted:Qty: 2 on 12/11/2021 by Moiz Mcnally MD at [facility] Spine Lumbar DePuy Spine [place] [id number] / / Single Inner Setscrew - [id number] Implanted:Qty: 8 on 12/11/2021 by Moiz Mcnally MD at [facility] Spine Lumbar DePuy Spine [place] [address] [id number] / / Procedures Procedure Name Priority Date/Time Associated Diagnosis Comments ECHO, ADULT TRANSTHORACIC COMPLETE STAT 12/26/2024 9:55 AM EDT PREALBUMIN, PLASMA Routine 12/26/2024 2: 50 AM EDT CEA, SERUM Routine 12/26/2024 2:50 AM EDT CANCER ANTIGEN, GI (CA 19.9) Routine 12/26/2024 2:50 AM EDT N-TERMINAL PROBNP, PLASMA Routine 12/26/2024 2:50 AM EDT HEPATIC FUNCTION PANEL Routine 2:50 AM EDT FOLATE, SERUM Routine 12/26/2024 2:50 AM EDT CORTISOL Routine 12/26/2024 2:50 AM EDT HEMOGLOBIN A1C Routine 12/26/2024 2:50 AM EDT LIPID PROFILE, PLASMA Routine 12/26/2024 2:50 AM EDT IRON & TOTAL IRON BINDING CAPACITY, PLASMA (INCLUDES TRANSFERRIN) Routine 12/26/2024 2:50 AM EDT FERRITIN, SERUM Routine 12/26/2024 2:50 AM EDT VITAMIN B12, SERUM Routine 12/26/2024 2: 50 AM EDT APTT Routine 12/26/2024 2:50 AM EDT PROTHROMBIN TIME(PT) / INR Routine 12/26/2024 2:50 AM EDT PHOSPHORUS, PLASMA Routine 12/26/2024 2: 50 AM EDT MAGNESIUM, PLASMA Routine 12/26/2024 2:5 0 AM EDT CBC WITH AUTO DIFFERENTIAL Routine 12/26/2024 2:50 AM EDT BASIC METABOLIC PANEL, PLASMA Routine 12/26/2024 2:[address] CHEST W IV CONTRAST STAT 2:[address] ABDOMEN PELVIS W IV CONTRAST STAT 12/25/2024 2:[address] HEAD WO IV CONTRAST STAT 2:27 PM EDT LIPASE, PLASMA STAT 12/25/2024 12:49 PM EDT PHOSPHORUS, PLASMA STAT 12/25/2024 9: 08 AM EDT MAGNESIUM, PLASMA STAT 12/25/2024 9:0 8 AM EDT COMPREHENSIVE METABOLIC PANEL, PLASMA STAT 12/25/2024 9:08 AM EDT PROTHROMBIN TIME(PT) / INR STAT 12/25/2024 9:08 AM EDT CBC WITH AUTO DIFFERENTIAL STAT 12/25/2024 9:08 AM EDT ERCP Routine 12/20/2024 9:46 AM EDT Mass of head of pancreas EUS (UPPER) Routine 12/20/2024 9:46 AM EDT Mass of head of pancreas FL ERC Routine 12/20/2024 9:46 AM EDT History of ERCP FINE NEEDLE ASPIRATION - CYTOLOGY Routine 12/20/2024 8:21 AM EDT Mass of head of pancreas SURGICAL PATHOLOGY EXAM Routine 12/21/19 8:10 AM EDT Mass of head of pancreas PB ANESTHESIA PLACEHOLDER Routine 12/20/2024 8:00 AM EDT MT AN ELECTIVE ENDOTRACHEAL AIRWAY Routine 12/20/2024 8:00 AM EDT COMPREHENSIVE METABOLIC PANEL, PLASMA Routine 12/07/2024 3:38 AM EDT CBC WITH AUTO DIFFERENTIAL Routine 12/07/2024 3:38 AM EDT MRCP W AND WO IV CONTRAST Routine 12/06/2024 4:23 PM EDT COMPREHENSIVE METABOLIC PANEL, PLASMA Routine 12/06/2024 5:45 AM EDT CBC WITH AUTO DIFFERENTIAL Routine 12/06/2024 5:45 AM EDT CANCER ANTIGEN, GI (CA 19.9) Routine 12/05/2024 11:19 PM EDT PROTHROMBIN TIME(PT) / INR STAT 12/05/2024 8:08 PM EDT LACTATE, VENOUS STAT 12/05/2024 8:08 PM EDT LIPASE, PLASMA STAT 12/05/2024 8:08 PM EDT CBC WITH AUTO DIFFERENTIAL STAT 12/05/2024 8:08 PM EDT MAGNESIUM, PLASMA STAT 12/05/2024 8:0 8 PM EDT COMPREHENSIVE METABOLIC PANEL, PLASMA STAT 12/05/2024 8:08 PM EDT URINALYSIS MICROSCOPIC FOR UA REFLEX STAT 12/04/2024 11:00 AM EDT PAIN MANAGEMENT, QUANTITATIVE URINE DRUG TESTING STAT 12/04/2024 11:00 AM EDT PAIN MANAGEMENT, QUANTITATIVE URINE DRUG TESTING STAT 12/04/2024 11:00 AM EDT COMPREHENSIVE URINE DRUG SCREENING,QUALITATIVE ASSAY, >= 27 DRUG CLASSES STAT 12/04/2024 11:00 AM EDT UREA NITROGEN, RANDOM URINE STAT 12/04/2024 11:00 AM EDT URINALYSIS WITH REFLEX MICROSCOPIC STAT 12/04/2024 11:00 AM EDT SODIUM, URINE, RANDOM STAT 12/04/2024 11:00 AM EDT PROTEIN, URINE, RANDOM WITH CREATININE STAT 12/04/2024 11:00 AM EDT ECG ADULT Routine 12/04/2024 5:57 AM EDT POCT GLUCOSE METER UNSOLICITED RESULTS Routine 12/04/2024 5:35 AM EDT XR CHEST 1 VIEW Routine 12/04/2024 5:19 AM EDT N-TERMINAL PROBNP, PLASMA Add-On 12/03/2024 11:18 PM EDT HEMOGLOBIN A1C Add-On 12/03/2024 11:18 PM EDT TRIGLYCERIDES, PLASMA Add-On 12/03/2024 11:18 PM EDT ED HIV 1/2 ANTIBODY/ANTIGEN SCREEN WITH REFLEX TO HIV I/II DIFFERENTIATION STAT 12/03/2024 11:18 PM EDT ED PROTOCOL HIV 1/2 ANTIBODY/ANTIGEN SCREEN W/REFLEX TO HIV 1/2 ANTIBODY DIFFERENTIATION STAT 12/03/2024 11:18 PM EDT HEPATITIS C ANTIBODY - ED W/REFLEX TO HCV QUANT PCR STAT 12/03/2024 11:18 PM EDT LACTATE, VENOUS STAT 12/03/2024 11:18 PM EDT LIPASE, PLASMA STAT 12/03/2024 11:18 PM EDT COMPREHENSIVE METABOLIC PANEL, PLASMA STAT 12/03/2024 11:18 PM EDT CBC WITH AUTO DIFFERENTIAL STAT 12/03/2024 11:[address] OUTSIDE IMAGES 12/03/2024 6:4 0 PM EDT XR OUTSIDE IMAGES 12/03/2024 5:2 3 PM EDT from Last 3 Months Results * ECHO, ADULT TRANSTHORACIC COMPLETE (12/26/2024 9:55 AM EDT) BSA 1.81 m2 ALLEN ISCV Height 170.0 ALLEN ISCV Weight 70.0 ALLEN ISCV LVIDd 60 mm ALLEN ISCV LVIDs 52 mm ALLEN ISCV IVSd 8 mm LALEN ISCV LVPWd 9 mm ALLEN ISCV LV MASS(C)D 200 g ALLEN ISCV UK CV ECHO LV MASS INDEX 111 g/m2 [...] Root Diam 31 mm ALLEN ISCV PA MT(ACCEL) 30.6 mmHg ALLEN ISCV LVLs ap2 8.8 [...] is no recent study available for direct [id number] comparison. Left Ventricle The left ventricle is [...] is no recent study available for direct [id number] comparison. Result Gael Abreu MD CV ECHO PROCEDURES Final Resul t * (ABNORMAL) N-Terminal Probnp (12/26/2024 2:50 AM EDT) Only the most recent of2 resultswithin the time period is included. N-Terminal, PROBNP, Plasma 4,363(H) 0 - 899 pg/mL 12/26/2024 3:46 AM EDT [facility] Blood Venous blood specimen / Unknown Venipuncture / Unknown 12/26/2024 2:50 AM EDT 12/26/2024 3:09 AM EDT Result Gael Abreu MD LAB BLOOD ORDERABLES Final Res ult Performing Organization Address [facility] Co de Phone Number [facility] [address] [place] [address] * Iron & Total Iron Binding Capacity, Plasma (Includes Transferrin) (12/26/2024 2:50 AM EDT) Iron, Plasma 56 50 - 170 ug/dL 12/26/2024 3:46 AM EDT [facility] Transferrin, Plasma 214 200 - 360 mg/dL 12/26/2024 3:46 AM EDT [facility] Total Iron Binding Capacity, Plasma 268 240 - 450 ug/mL 12/26/2024 3:46 AM EDT [facility] Transferrin Saturation 21 14 - 50 % 12/26/2024 3:46 AM EDT [facility] Blood Venous blood specimen / Unknown Venipuncture / Unknown 12/26/2024 2:50 AM EDT 12/26/2024 3:09 AM EDT Result Gael Abreu MD LAB BLOOD ORDERABLES Final Res ult Performing Organization Address City/[facility]/ZIP Co de Phone Number [facility] [address] [place] [address] * (ABNORMAL) Cancer antigen 19-9 (12/26/2024 2:50 AM EDT) Only the most recent of2 resultswithin the time period is included. CA 19.9 248(H) <36 U/mL 12/26/2024 3:56 AM EDT [facility] Blood Venous blood specimen / Unknown Venipuncture / Unknown 12/26/2024 2:50 AM EDT 12/26/2024 3:17 AM EDT Narrative [facility] - 12/26/2024 3:56 AM EDT Performed by Luiza electrochemiluminescent immunoassay. Results obtained with different test methods or kits cannot be used interchangeably. us Aramis Abreu MD LAB BLOOD ORDERABLES Final Res ult Performing Organization Address [facility] Co de Phone Number [facility] [address] [place] [address] * (ABNORMAL) APTT (12/26/2024 2:50 AM EDT) aPTT 36(H) 25 - 35 sec 12/26/2024 3:24 AM EDT [facility] Blood Venous blood specimen / Unknown Venipuncture / Unknown 12/26/2024 2:50 AM EDT 12/26/2024 3:09 AM EDT us Aramis Abreu MD LAB BLOOD ORDERABLES Final Res ult Performing Organization Address [facility] Co de Phone Number [facility] [address] [place] [address] * (ABNORMAL) PT/INR (12/26/2024 2:50 AM EDT) Only the most recent of3 resultswithin the time period is included. Prothrombin Time 16.6(H) 12.0 - 14.3 sec 12/26/2024 3:24 AM EDT [facility] INR 1.4(H) 0.9 - 1.1 12/26/2024 3:24 AM EDT [facility] Blood Venous blood specimen / Unknown Venipuncture / Unknown 12/26/2024 2:50 AM EDT 12/26/2024 3:09 AM EDT Narrative [facility] - 12/26/2024 3:24 AM EDT OPTIMAL INR RANGES FOR PATIENT ON ORAL ANTICOAGULANT THERAPY Prevention of venous thromboembolism INR 2.0 to 3.0 In patients with heart disease: Atrial fibrillation INR 2.0 to 3.0 Valvular heart disease INR 2.0 to 3.0 Tissue heart valves INR 2.0 to 3.0 Mechanical prosthetic valves INR 2.5 to 3.5 Prevention of recurrent CA INR 2.5 to 3.5 us Aramis Abreu MD LAB BLOOD ORDERABLES Final Res ult [facility] [address] [place] [address] * (ABNORMAL) CBC and Differential (12/26/2024 2:50 AM EDT) Only the most recent of6 resultswithin the time period is included. WBC Count 9.17 3.70 - 10.30 10*3/uL LAB HEMATOLOGY METHOD 12/26/2024 3:14 AM EDT [facility] RBC Count 5.37 4.60 - 6.10 10*6/uL LAB HEMATOLOGY METHOD 12/26/2024 3:14 AM EDT [facility] HGB 15.5 13.7 - 17.5 g/dL LAB HEMATOLOGY METHOD 12/26/2024 3:14 AM EDT [facility] HCT 47.2 40.0 - 51.0 % LAB HEMATOLOGY METHOD 12/26/2024 3:14 AM EDT [facility] Platelet Count 236 155 - 369 10*3/uL LAB HEMATOLOGY METHOD 12/26/2024 3:14 AM EDT [facility] MCV 88 79 - 98 fL LAB HEMATOLOGY METHOD 12/26/2024 3:14 AM EDT [facility] MCH 28.9 26.0 - 32.0 pg LAB HEMATOLOGY METHOD 12/26/2024 3:14 AM EDT [facility] MCHC 32.8 30.7 - 35.5 g/dL LAB HEMATOLOGY METHOD 12/26/2024 3:14 AM EDT [facility] RDW 19.0(H) 11.5 - 14.5 % LAB HEMATOLOGY METHOD 12/26/2024 3:14 AM EDT [facility] MPV 11.5 8.8 - 12.5 fL LAB HEMATOLOGY METHOD 12/26/2024 3:14 AM EDT [facility] nRBC 0.0 <=0.0 per 100 WBCs LAB HEMATOLOGY METHOD 12/26/2024 3:14 AM EDT [facility] Differential Type Automated LAB HEMATOLOGY METHOD 12/26/2024 3:14 AM EDT [facility] Neutrophils % 67 % LAB HEMATOLOGY METHOD 12/26/2024 3:14 AM EDT [facility] Lymphocytes % 23 % LAB HEMATOLOGY METHOD 12/26/2024 3:14 AM EDT [facility] Monocytes % 6 % LAB HEMATOLOGY METHOD 12/26/2024 3:14 AM EDT [facility] Eosinophils % 3 % LAB HEMATOLOGY METHOD 12/26/2024 3:14 AM EDT [facility] Basophils % 1 % LAB HEMATOLOGY METHOD 12/26/2024 3:14 AM EDT [facility] Immature Granulocytes % 0 % LAB HEMATOLOGY METHOD 12/26/2024 3:14 AM EDT [facility] Neutrophils Absolute 6.20(H) 1.60 - 6.10 10*3/uL LAB HEMATOLOGY METHOD 12/26/2024 3:14 AM EDT [facility] Lymphocytes Absolute 2.09 1.20 - 3.90 10*3/uL LAB HEMATOLOGY METHOD 12/26/2024 3:14 AM EDT [facility] Monocytes Absolute 0.55 0.30 - 0.90 10*3/uL LAB HEMATOLOGY METHOD 12/26/2024 3:14 AM EDT [facility] Eosinophils Absolute 0.25 0.00 - 0.50 10*3/uL LAB HEMATOLOGY METHOD 12/26/2024 3:14 AM EDT [facility] Basophils Absolute 0.06 0.00 - 0.10 10*3/uL LAB HEMATOLOGY METHOD 12/26/2024 3:14 AM EDT [facility] Immature Granulocytes Absolute 0.02 0.00 - 0.06 10*3/uL LAB HEMATOLOGY METHOD 12/26/2024 3:14 AM EDT [facility] Blood Venous blood specimen / Unknown Venipuncture / Unknown 12/26/2024 2:50 AM EDT 12/26/2024 3:09 AM EDT Narrative [facility] - 12/26/2024 3:14 AM EDT Therapeutic decision making should be based on absolute values, rather than percentages. us Aramis Abreu MD LAB BLOOD ORDERABLES Final Res ult Performing Organization Address [facility]/ZIP Co de Phone Number [facility] [address] [place] [address] * (ABNORMAL) Prealbumin (12/26/2024 2:50 AM EDT) Prealbumin, Plasma 10.0(L) 20.0 - 41.0 mg/dL 12/26/2024 3:47 AM EDT [facility] Blood Venous blood specimen / Unknown Venipuncture / Unknown 12/26/2024 2:50 AM EDT 12/26/2024 3:09 AM EDT us Iesha Pride MD LAB BLOOD ORDERABLE S Final Result Performing Organization Address [facility] [place] [place] [address] * Phosphorus (12/26/2024 2:50 AM EDT) Only the most recent of2 resultswithin the time period is included. Phosphorus, Plasma 3.5 2.5 - 4.5 mg/dL 12/26/2024 3:47 AM EDT [facility] Blood Venous blood specimen / Unknown Venipuncture / Unknown 12/26/2024 2:50 AM EDT 12/26/2024 3:09 AM EDT us Aramis Abreu MD LAB BLOOD ORDERABLES Final Res ult Performing Organization Address City/[facility] Co de Phone Number [facility] [address] [place] [address] * Magnesium, Plasma (12/26/2024 2:50 AM EDT) Only the most recent of3 resultswithin the time period is included. Magnesium, Plasma 2.1 1.9 - 2.4 mg/dL 12/26/2024 3:46 AM EDT [facility] Blood Venous blood specimen / Unknown Venipuncture / Unknown 12/26/2024 2:50 AM EDT 12/26/2024 3:09 AM EDT us Aramis Abreu MD LAB BLOOD ORDERABLES Final Res ult Performing Organization Address [facility] Co de Phone Number [facility] [address] [place] [address] * (ABNORMAL) Hemoglobin A1c (12/26/2024 2:50 AM EDT) Only the most recent of2 resultswithin the time period is included. Hemoglobin A1c 6.5(H) <5.7 % 12/26/2024 10:53 AM EDT [facility] Blood Venous blood specimen / Unknown Venipuncture / Unknown 12/26/2024 2:50 AM EDT 12/26/2024 3:17 AM EDT Narrative [facility] - 12/26/2024 10:53 AM EDT HA1C Interpretive Data: Diagnosis of Diabetes: Diabetic > or = 6.5% Pre-diabetic 5.7 to 6.4% Non-diabetic < or = 5.6% Glycemic Targets for Type I and Type II Diabetics: Non- Adults <7.0% Adults <6.0% Children and Adolescents <7.5% Source: [place] [employer]. Standards of medical care in diabetes,2017. Diabetes Care.2017:40 (suppl 1):S1-S135. us Aramis Abreu MD LAB BLOOD ORDERABLES Final Res ult Performing Organization Address City/[facility] Hospital/ZIP Co de Phone Number [facility] [address] [place] [address] * Folate (12/26/2024 2:50 AM EDT) Folate, Serum 5.8 >4.6 ng/mL 12/26/2024 4:05 AM EDT [facility] Blood Venous blood specimen / Unknown Venipuncture / Unknown 12/26/2024 2:50 AM EDT 12/26/2024 3:17 AM EDT us Aramis Abreu MD LAB BLOOD ORDERABLES Final Res ult Performing Organization Address City/[facility]/ZIP Co de Phone Number [facility] [address] [place] [address] * Ferritin (12/26/2024 2:50 AM EDT) Ferritin, Serum 113 20 - 400 ng/mL 12/26/2024 3:56 AM EDT [facility] Blood Venous blood specimen / Unknown Venipuncture / Unknown 12/26/2024 2:50 AM EDT 12/26/2024 3:17 AM EDT us Aramis Abreu MD LAB BLOOD ORDERABLES Final Res ult Performing Organization Address [facility] Co de Phone Number [facility] [address] [place] [address] * Vitamin B12 (12/26/2024 2:50 AM EDT) Vitamin B12, Serum 979 210 - 1,033 pg/mL 12/26/2024 4:05 AM EDT [facility] Blood Venous blood specimen / Unknown Venipuncture / Unknown 12/26/2024 2:50 AM EDT 12/26/2024 3:17 AM EDT us Aramis Abreu MD LAB BLOOD ORDERABLES Final Res ult Performing Organization Address City/[facility] Co de Phone Number [facility] [address] [place] [address] * Cortisol (12/26/2024 2:50 AM EDT) Cortisol 13.00 Before 10am: 3.7 - 19.4. After 5pm: 2.9 - 17.3 ug/dL 12/26/2024 4:24 AM EDT [facility] Comment:Testing performed on [employer], standardized against FPC Reference Standard concentration values assigned by LC-MS/MS and verified by BCR 192 and BCR 193 certified reference materials. Blood Venous blood specimen / Unknown Venipuncture / Unknown 12/26/2024 2:50 AM EDT 12/26/2024 3:17 AM EDT us Aramis Abreu MD LAB REF LAB BLOOD AND FLUID OR D Final Result Performing Organization Address [facility] de Phone Number [facility] [address] [place] [address] * (ABNORMAL) CEA (12/26/2024 2:50 AM EDT) CEA, Serum 8.5(H) <4.0 ng/mL 12/26/2024 3:56 AM EDT [facility] Blood Venous blood specimen / Unknown Venipuncture / Unknown 12/26/2024 2:50 AM EDT 12/26/2024 3:17 AM EDT Narrative [facility] - 12/26/2024 3:56 AM EDT Normal range for smokers: < 5.5 ng/ml Normal range for non-smokers: <=4.0 ng/ml Performed by [employer] electrochemiluminescent immunoassay. Results obtained with different test methods or kits cannot be used interchangeably. us Aramis Abreu MD LAB BLOOD ORDERABLES Final Res ult Performing Organization Address [facility] Phone Number [facility] [address] [place] [address] * (ABNORMAL) Hepatic Function Panel (12/26/2024 2:50 AM EDT) Conjugated Bilirubin, Plasma 0.6(H) <=0.3 mg/dL 12/26/2024 3:46 AM EDT [facility] Comment:Hemolyzed, result ma y be falsely decreased. Alkaline Phosphatase, Plasma 160(H) 40 - 115 U/L 12/26/2024 3:46 AM EDT [facility] Total Bilirubin, Plasma 1.8(H) 0.2 - 1.1 mg/dL 12/26/2024 3:46 AM EDT [facility] Albumin, Plasma 3.4(L) 3.5 - 5.2 g/dL 12/26/2024 3:46 AM EDT [facility] Total Protein 6.0(L) 6.3 - 7.9 g/dL 12/26/2024 3:46 AM EDT [facility] ALT, Plasma 102(H) 10 - 50 U/L 12/26/2024 3:46 AM EDT [facility] AST, Plasma 32 10 - 50 U/L 12/26/2024 3:46 AM EDT [facility] Comment:Hemolyzed, result ma y be falsely increased. Blood Venous blood specimen / Unknown Venipuncture / Unknown 12/26/2024 2:50 AM EDT 12/26/2024 3:09 AM EDT us Aramis Abreu MD LAB BLOOD ORDERABLES Final Res ult [facility] [address] [place] [address] * (ABNORMAL) Lipid panel (12/26/2024 2:50 AM EDT) Cholesterol, Plasma 119 <200 mg/dL 12/26/2024 3:46 AM EDT [facility] Comment: Cholesterol Reference Range (age >17 years): Desirable <200 mg/dL Borderline 200 to 239 mg/dL Undesirable >239 mg/dL HDL 37(L) >=40 mg/dL 12/26/2024 3:46 AM EDT [facility] Comment: HDL Cholesterol Reference Ranges (age >17 years): Female, acceptable > or = 50 mg/dL Male, acceptable > or = 40 mg/dL Triglycerides, Plasma 75 <150 mg/dL 12/26/2024 3:46 AM EDT [facility] Comment: Triglyceride Reference Range (age >17 years): Desirable: <150 mg/dL Borderline high: 150 to 199 mg/dL High: 200 to 499 mg/dL Very high: >499 mg/dL Increased risk of pancreatitis: >1000 mg/dL Cholesterol/HDL Ratio 3 12/26/2024 3:46 AM EDT [facility] LDL, Calculated 67 <100 mg/dL 3:46 AM EDT [facility] Comment: LDL Cholesterol Reference [...] 12 hours? No 12/26/2024 3:46 AM EDT [facility] Blood Venous blood specimen / Unknown Venipuncture / Unknown 12/26/2024 2:50 AM EDT 12/26/2024 3:09 AM EDT us Aramis Abreu MD LAB BLOOD ORDERABLES Final Res ult [facility] [address] [place] [address] * (ABNORMAL) Basic metabolic panel (12/26/2024 2:50 AM EDT) Glucose, Plasma 128(H) 74 - 99 mg/dL 12/26/2024 3:47 AM EDT [facility] BUN, Plasma 18 8 - 23 mg/dL 12/26/2024 3:47 AM EDT [facility] Creatinine, Plasma 1.10 0.70 - 1.20 mg/dL 12/26/2024 3:47 AM EDT [facility] BUN/Creatinine Ratio 16 12/26/2024 3:47 AM EDT [facility] Sodium, Plasma 139 136 - 145 mmol/L 12/26/2024 3:47 AM EDT [facility] Potassium, Plasma 4.7 3.6 - 4.9 mmol/L 12/26/2024 3:47 AM EDT [facility] Chloride, Plasma 105 97 - 107 mmol/L 12/26/2024 3:47 AM EDT [facility] CO2, Plasma 23 22 - 29 mmol/L 12/26/2024 3:47 AM EDT [facility] Anion Gap 11 6 - 16 mmol/L 12/26/2024 3:47 AM EDT [facility] Total Calcium, Plasma 8.9 8.9 - 10.2 mg/dL 12/26/2024 3:47 AM EDT [facility] eGFRcr 75.0 mL/min/1.7 3m*2 12/26/2024 3:47 AM EDT [facility] Comment:Reported eGFRcr in m L/min/1.73m2 is based the CKD-EPI 2020 equation that does not use a race coefficient. Blood Venous blood specimen / Unknown Venipuncture / Unknown 12/26/2024 2:50 AM EDT 12/26/2024 3:09 AM EDT us Aramis Abreu MD LAB BLOOD ORDERABLES Final Res ult [facility] [address] [place] [address] * CT Abdomen Pelvis w IV Contrast [...] Romaine Raya MD on 12/25/2024 3:07 PM Aramis Abreu MD IM CT PROCEDURES Final Result * CT Chest w IV Contrast (12/25/2024 [...] Romaine Raya MD on 12/26/2024 1:59 PM Aramis Abreu MD IMG CT PROCEDURES Final Result * [...] Madeline Gallardo on 12/25/2024 2:50 PM us Aramis Abreu MD IMG CT PROCEDURES Final Result * (ABNORMAL) Lipase (12/25/2024 12:49 PM EDT) Only the most recent of3 resultswithin the time period is included. Lipase, Plasma 454(H) 19 - 63 U/L 12/25/2024 1:21 PM EDT [facility] Blood Venous blood specimen / Unknown Venipuncture / Unknown 12/25/2024 12:49 PM EDT 12/25/2024 12:52 PM EDT us Aramis Abreu MD LAB BLOOD ORDERABLES Final Res ult [facility] [address] [place] [address] * (ABNORMAL) CMP (12/25/2024 9:08 AM EDT) Only the most recent of5 resultswithin the time period is included. Glucose, Plasma 143(H) 74 - 99 mg/dL 12/25/2024 10:01 AM EDT [facility] BUN, Plasma 15 8 - 23 mg/dL 12/25/2024 10:01 AM EDT [facility] Creatinine, Plasma 0.95 0.70 - 1.20 mg/dL 12/25/2024 10:01 AM EDT [facility] BUN/Creatinine Ratio 16 12/25/2024 10:01 AM EDT [facility] Sodium, Plasma 139 136 - 145 mmol/L 12/25/2024 10:01 AM EDT [facility] Potassium, Plasma 5.2(H) 3.6 - 4.9 mmol/L 12/25/2024 10:01 AM EDT [facility] Comment:Hemolyzed, result ma y be falsely increased. Chloride, Plasma 106 97 - 107 mmol/L 12/25/2024 10:01 AM EDT [facility] CO2, Plasma 21(L) 22 - 29 mmol/L 12/25/2024 10:01 AM EDT [facility] Anion Gap 12 6 - 16 mmol/L 12/25/2024 10:01 AM EDT [facility] Total Calcium, Plasma 9.4 8.9 - 10.2 mg/dL 12/25/2024 10:01 AM EDT [facility] Total Protein 6.8 6.3 - 7.9 g/dL 12/25/2024 10:01 AM EDT [facility] Albumin, Plasma 3.9 3.5 - 5.2 g/dL 12/25/2024 10:01 AM EDT [facility] AST, Plasma 63(H) 10 - 50 U/L 12/25/2024 10:01 AM EDT [facility] Comment:Hemolyzed, result ma y be falsely increased. ALT, Plasma 131(H) 10 - 50 U/L 12/25/2024 10:01 AM EDT [facility] Comment:Hemolyzed, result ma y be falsely increased or decreased. Alkaline Phosphatase, Plasma 197(H) 40 - 115 U/L 12/25/2024 10:01 AM EDT [facility] Comment:Hemolyzed, result ma y be falsely decreased. Total Bilirubin, Plasma 2.5(H) 0.2 - 1.1 mg/dL 12/25/2024 10:01 AM EDT [facility] eGFRcr 89.4 mL/min/1.7 3m*2 12/25/2024 10:01 AM EDT [facility] Comment:Reported eGFRcr in m L/min/1.73m2 is based the CKD-EPI 2020 equation that does not use a race coefficient. Blood Venous blood specimen / Unknown Venipuncture / Unknown 12/25/2024 9:08 AM EDT 12/25/2024 9:33 AM EDT us Danny Lucio MD LAB BLOOD ORDERABLES Final Re sult [facility] [address] [place] [address] * EUS (Upper) (12/20/2024 9:46 AM EDT) [...] sample was sent for cytology analysis. Onsite lpn medical assistant was not present Recommendations Await pathology results [...] fo this. They report Dr. Chirinos in [place] can see him regularly, if any of these occur. Indication Mass of head of pancreas Medications See anesthesia record for anesthesia administered medications. 500 mg IV Levaquin 100 mg MT indomethacin 1.0 mg IV glucagon (given as two doses of 0.5 mg) Staff Staff Role Sae Barriga MD Anesthesiologist Darian Jaramillo MD Proceduralist Pascual Dunlap CRNA CRNA Pitt, Emeric O Endo Auto Body Straightener Pedro Luis Henry RN Endo Nurse Preprocedure [...] sample was sent for cytology analysis. Onsite lpn medical assistant was not present us Kiko Ball MD GI PROCEDURE ORDERABLES Final Re sult * ERCP (12/20/2024 9:46 AM EDT) Anatomical Region Laterality Modality Endoscopy Addenda Addendum by Darian Jaramillo MD on 12/20/2024 10:09 AM EDT Table formatting from the original result was not included. Impression Prior to introduction of the duodenoscope, assistant produce manager image was obtained. This showed no foreign [...] medications. 500 mg IV Levaquin 100 mg MT indomethacin 1.0 mg IV glucagon (given as two doses of 0.5 mg) Staff Staff Role Sae Barriga MD Anesthesiologist Darian Jaramillo MD Proceduralist Pascual Dunlap, KIDS ACTIVITIES COACH Dominic Umana Endo Auto Body Straightener Pedro Luis Henry RN Endo Nurse Preprocedure [...] Findings Prior to introduction of the duodenoscope, assistant produce manager image was obtained. This showed no foreign [...] ampullary os, when transient visualization was possible. Darian Jaramillo MD GI PROCEDURE ORDERABLES Reynaldo heath Result - Final * FL ERC (12/20/2024 9:46 AM EDT) Narrative IMAGING - 12/20/2024 4:43 PM EDT Images were obtained for surgical purposes. See Darian Jaramillo's surgical note in the patient's chart for the findings. Darian Jaramillo MD IMG FLUOROSCOPY PROCEDURES Final Result IMAGING * Fine needle aspiration (12/20/2024 8:21 AM EDT) Case Report Cytology Case: [id number] Authorizing Provider: Darian Jaramillo MD Collected: 12/20/2024 0821 Ordering Location: [facility] Received: 12/20/2024 1104 Pathologist: Carol Hyman MD Specimen: Pancreas, Fine Needle Aspiration, HEAD OF PANCREAS MASS, ENDOSCOPIC ULTRASOUND GUIDED FINE NEEDLE ASPIRATION 12/21/2024 4:16 PM EDT [facility] Final Diagnosis A. HEAD OF PANCREAS MASS, ENDOSCOPIC ULTRASOUND GUIDED FINE NEEDLE ASPIRATION: - SCANT MARKEDLY ATYPICAL CELLS, MOST COMPATIBLE WITH ADENOCARCINOMA (SEE COMMENT). 12/21/2024 4:16 PM EDT [facility] at 1616 EDT Comment Clinical and imaging correlation is suggested. 12/21/2024 4:16 PM EDT [facility] Intradepartmental Consultation with Agreement Dr. Dayami Marks 12/21/2024 4:16 PM EDT [facility] Immediate Evaluation FNA performed by Dr. Jaramillo Number of sticks: Not provided This service has been rendered in part by a resident. A pathologist has personally reviewed the slides/tissue and has rendered and is responsible for diagnosis for the diagnosis that appears on the report. 12/21/2024 4:16 PM EDT [facility] Gross Description A. HEAD OF PANCREAS MASS, ENDOSCOPIC ULTRASOUND GUIDED FINE NEEDLE ASPIRATION 10 ml's tinted Needle rinse fluid processed as ThinPrep and cellblock for complete evaluation of sample. Slides were NOT received Cold Time: 4h 39m 12/21/2024 4:16 PM EDT [facility] Note: A resident was involved in the service. I attest I examined the relevant preparations for the specimens and confirmed the diagnosis or interpretation. 12/21/2024 4:16 PM EDT [facility] Clinical Information K86.89 - Mass of head of pancreas [ICD-10-CM] 12/21/2024 4:16 PM EDT [facility] Fine Needle Aspirate Pancreatic structure / Unknown 12/20/2024 8:21 AM EDT 12/20/2024 11:04 AM EDT us Darian Jaramillo MD LAB CYTOLOGY ORDERABLES Fin al Result Performing Organization Address [facility] Co de Phone Number [facility] [address] [place] [address] * Surgical Pathology Exam (12/20/2024 8:10 AM EDT) Case Report Surgical Pathology Case: [id number] Authorizing Provider: Darian Jaramillo MD Collected: 12/20/2024 0810 Ordering Location: [facility] Endoscopy Received: 12/20/2024 1014 Pathologist: Jet Mike MD Specimen: Stomach, Gastric Bx 12/21/2024 9:37 AM EDT [facility] Final Diagnosis STOMACH, BIOPSY: - NO PATHOLOGIC ABNORMALITY - NO EVIDENCE OF HELICOBACTER-L CARLOTA ORGANISMS ON ROUTINE STAIN 12/21/2024 9:37 AM EDT [facility] at 0937 EDT Clinical Information K86.89 - Mass of head of pancreas [ICD-10-CM] 12/21/2024 9:37 AM EDT [facility] Gross Description A. GASTRIC BX Received in formalin labeled gastric biopsy are 4 swanson-brown soft tissue fragments measuring 0.2-0.4 cm in greatest dimension. Entirely submitted in cassette A1. Cold Time: <1m Eve Palmer 12/21/2024 9:37 AM EDT [facility] Tissue Stomach structure / Unknown 12/20/2024 8:10 AM EDT 12/20/2024 10:14 AM EDT us Darian Jaramillo MD LAB PATHOLOGY ORDERABLES Fi nal Result Performing Organization Address City/[facility]/ZIP Co de Phone Number [facility] [address] [place] [address] * MT AN ELECTIVE ENDOTRACHEAL AIRWAY, PB ANESTHESIA PLACEHOLDER (12/20/2024 8:00 AM EDT) Narrative Pascual Dunlap CRNA - 12/20/2024 8:00 AM EDT Pascual Dunlap CRNA 12/20/2024 8:05 AM Airway Date/Time: 12/20/2024 8:00 AM Reason: elective Airway not difficult General Information and Staff Patient location during procedure: OR Anesthesiologist: Sae Barriga MD KIDS ACTIVITIES COACH: Pascual Dunlap CRNA Performed: KIDS ACTIVITIES COACH Patient Condition Indications for airway management: anesthesia [...] Additional Comments Atraumatic. No change to dentition. us Sae Barriga MD ANESTHESIA ORDERABLES Final R esult * MRCP w and wo IV Contrast [...] using the following sequences: coronal single shot [id number] fast spin echo, axial T2 weighted sequences [...] signing this report, I, the attending physician, pete I have personally reviewed the images/data for the aboveexamination(s) and agree with the final edited report. Drafted by Yasmin Taylor MD on 12/07/2024 8:02 AM Final report signed by Shadia Vincent DO on 12/07/2024 10:07 AM us Chan Antony MD IMG MRI PROCEDURES Final Re sult * Lactic acid, venous (12/05/2024 8:08 PM EDT) Only the most recent of2 resultswithin the time period is included. Lactate, Venous, Whole Blood 1.1 0.5 - 2.2 mmol/L LAB HEMATOLOGY METHOD 12/05/2024 8:18 PM EDT [facility] Blood Venous blood specimen / Unknown Venipuncture / Unknown 12/05/2024 8:08 PM EDT 12/05/2024 8:13 PM EDT us Raysa CAMARILLO LAB BLOOD ORDERABLES Final R esult [facility] [address] [place] [id number] * (ABNORMAL) Pain Management, Quantitative Urine Drug Testing (12/04/2024 11:00 AM EDT) [facility] [place] Alprazolam <20 <20 ng/mL 12/06 9:57 PM EDT [facility] [place] Midazolam <20 <20 ng/mL 2024 9:57 PM EDT [facility] [place] Triazolam <20 <20 ng/mL 2024 9:57 PM EDT [facility] Alprazolam <10 <10 ng/mL 12/06/2024 9:57 PM EDT [facility] Aminoclonazepam <20 <20 ng/mL 9:57 PM EDT [facility] Amphetamine <50 <50 ng/mL 12/06/2024 9:57 PM EDT [facility] Benzoylecgonine <50 <50 ng/mL 9:57 PM EDT [facility] Buprenorphine <10 <10 ng/mL 12/06/2024 9:57 PM EDT [facility] Buprenorphine Glucuronide <50 <50 ng/mL 12/06/2024 9:57 PM EDT [facility] Butalbital <50 <50 ng/mL 12/06/2024 9:57 PM EDT [facility] 9 Carboxy THC >250(H) <10 ng/mL 12/06/2024 9:57 PM EDT [facility] 9 Carboxy THC Glucuronide >500(H) <25 ng/mL 12/06/2024 9:57 PM EDT [facility] Clonazepam <10 <10 ng/mL 12/06/2024 9:57 PM EDT [facility] Codeine <50 <50 ng/mL 12/06/2024 9:57 PM EDT [facility] Codeine Glucuronide <50 <50 ng/mL 12/06 9:57 PM EDT [facility] Cyclobenzaprine <50 <50 ng/mL 9:57 PM EDT [facility] Desmethyl Tramadol <50 <50 ng/mL 2024 9:57 PM EDT [facility] Diazepam <10 <10 ng/mL 12/06/2024 9:57 PM EDT [facility] EDDP - Methadone Metabolite <50 <50 ng/mL 12/06/2024 9:57 PM EDT [facility] Fentanyl <1 <1 ng/mL 12/06/2024 9:57 PM EDT [facility] Hydrocodone <50 <50 ng/mL 12/06/2024 9:57 PM EDT [facility] Hydromorphone <50 <50 ng/mL 12/06/2024 9:57 PM EDT [facility] Hydromorphone Glucuronide <50 <50 ng/mL 12/06/2024 9:57 PM EDT [facility] Lorazepam <20 <20 ng/mL 12/06/2024 9:57 PM EDT [facility] Lorazepam Glucuronide <50 <50 ng/mL 12/06/2024 9:57 PM EDT [facility] MDA <50 <50 ng/mL 12/06/2024 9:57 PM EDT [facility] MDMA <50 <50 ng/mL 12/06/2024 9:57 PM EDT [facility] Meperidine <50 <50 ng/mL 12/06/2024 9:57 PM EDT [facility] Methadone <50 <50 ng/mL 12/06/2024 9:57 PM EDT [facility] Methamphetamine <50 <50 ng/mL 9:57 PM EDT [facility] Methylphenidate <50 <50 ng/mL 9:57 PM EDT [facility] 6 Monoacetyl morphine <10 <10 ng/mL 12/06/2024 9:57 PM EDT [facility] Morphine >1,000(H) <50 ng/mL 12/06/2024 9:57 PM EDT [facility] Morphine Glucuronide >1,000(H) <50 ng/mL 11/25 9:57 PM EDT [facility] Naloxone <50 <50 ng/mL 12/06/2024 9:57 PM EDT [facility] Naloxone Glucuronide <50 <50 ng/mL 11/25 9:57 PM EDT [facility] Norbuprenorphine <10 <10 ng/mL 12/07/19 9:57 PM EDT [facility] Norbuprenorphine Glucuronide <50 <50 ng/mL 12/06/2024 9:57 PM EDT [facility] Nordiazepam <20 <20 ng/mL 12/06/2024 9:57 PM EDT [facility] Norfentanyl <2 <2 ng/mL 12/06/2024 9:57 PM EDT [facility] Normeperidine <50 <50 ng/mL 12/06/2024 9:57 PM EDT [facility] PCP Quant, Ur <50 <50 ng/mL 12/06/2024 9:57 PM EDT [facility] Phenobarbital <50 <50 ng/mL 12/06/2024 9:57 PM EDT [facility] Oxazepam <20 <20 ng/mL 12/06/2024 9:57 PM EDT [facility] Oxazepam Glucuronide <50 <50 ng/mL 11/25 9:57 PM EDT [facility] Oxycodone <50 <50 ng/mL 12/06/2024 9:57 PM EDT [facility] Oxymorphone <50 <50 ng/mL 12/06/2024 9:57 PM EDT [facility] Oxymorphone Glucuronide <50 <50 ng/mL 12/06/2024 9:57 PM EDT [facility] Secobarbital <50 <50 ng/mL 12/06/2024 9:57 PM EDT [facility] Tramadol <50 <50 ng/mL 12/06/2024 9:57 PM EDT [facility] Temazepam <20 <20 ng/mL 12/06/2024 9:57 PM EDT [facility] Temazepam Glucuronide <50 <50 ng/mL 12/06/2024 9:57 PM EDT [facility] Urine Urine specimen obtained by clean catch procedure / Unknown Non-blood Collection / Unknown 12/04/2024 11:00 AM EDT 12/04/2024 11:17 AM EDT Narrative [facility] - 12/06/2024 9:57 PM EDT This report is intended for use in clinical monitoring or management of patients. It is NOT intended for use in employment-related drug testing. For pain management, the absence of expected drug(s) and/or drug metabolite(s) may indicate non-compliance, inappropriate timing of specimen collection relative to drug administration, poor drug absorption, or limitations of testing. Interpretive questions should be directed to the laboratory. Test performed by LC-MS/MS at the [facility]. This test was developed and its performance characteristics determined by [facility]. It has not been cleared or approved by the FDA. The laboratory is regulated under CLIA as qualified to perform high-complexity testing. This test is used for clinical purposes. Jeff Cramer APRN LAB URINE ORDERABLES Final Re sult Performing Organization Address [facility] Co de Phone Number [facility] [address] [place] [address] * Urinalysis Microscopic Examination (12/04/2024 11:00 AM EDT) Urine Urine specimen obtained by clean catch procedure / Unknown Non-blood Collection / Unknown 12/04/2024 11:00 AM EDT 12/04/2024 11:17 AM EDT Jeff Cramer [employer] LAB URINE ORDERABLES Final Re sult Performing Organization Address [facility] de Phone Number [facility] [address] [place] [address] * Urea Nitrogen, Random Urine (12/04/2024 11:00 AM EDT) Urea Nitrogen, Urine 1,201 mg/dL 12/04/2024 1:34 PM EDT [facility] Urine Urine specimen obtained by clean catch procedure / Unknown Non-blood Collection / Unknown 12/04/2024 11:00 AM EDT 12/04/2024 11:17 AM EDT [facility]ib KIND[employer]ART[employer] CL[employer]SRO[employer] TEACHER LAB URINE ORDERABLES Final Re sult Performing Organization Address [facility] Co de Phone Number [facility] [address] [place] [address] * Sodium, Random, Urine (12/04/2024 11:00 AM EDT) Sodium, Urine 34 mmol/L 12/04/2024 11:53 AM EDT [facility] Urine Urine specimen obtained by clean catch procedure / Unknown Non-blood Collection / Unknown 12/04/2024 11:00 AM EDT 12/04/2024 11:17 AM EDT Jeff Cramer KINDER[employer] TE[employer]ER LAB URINE ORDERABLES Final Re sult Performing Organization Address [facility] Co de Phone Number [facility] [address] [place] [address] * Protein, Random, Urine with Creatinine (12/04/2024 11:00 AM EDT) Protein, Urine 18 mg/dL 12/04/2024 11:53 AM EDT [facility] Creatinine, Urine 195 mg/dL 12/04/2024 11:53 AM EDT [facility] Protein/Creati nine Ratio 0.1 mg/mg Creat 12/04/2024 11:53 AM EDT [facility] Urine Urine specimen obtained by clean catch procedure / Unknown Non-blood Collection / Unknown 12/04/2024 11:00 AM EDT 12/04/2024 11:17 AM EDT Jeff Cramer APRN LAB URINE ORDERABLES Final Re sult Performing Organization Address [facility] de Phone Number [facility] [address] [place] [address] * (ABNORMAL) Comprehensive Urine Drug Screening, Qualitative Assay, >= 27 Drug Classes (1:00 AM EDT) Acetaminophen Negative Negative 12/05/2024 6:03 PM EDT [facility] Alprazolam Negative Negative 12/05/2024 6:03 PM EDT [facility] Amantadine Negative Negative 12/05/2024 6:03 PM EDT [facility] Amitriptyline Negative Negative 12/05/2024 6:03 PM EDT [facility] Amphetamine Negative Negative 12/05/2024 6:03 PM EDT [facility] Atenolol Negative Negative 12/05/2024 6:03 PM EDT [facility] Benzoylecgonine Negative Negative 6:03 PM EDT [facility] Bisoprolol Negative Negative 12/05/2024 6:03 PM EDT [facility] Bupropion Negative Negative 12/05/2024 6:03 PM EDT [facility] Butalbital Negative Negative 12/05/2024 6:03 PM EDT [facility] Carbamazepine Negative Negative 12/05/2024 6:03 PM EDT [facility] Carisoprodol Negative Negative 12/05/2024 6:03 PM EDT [facility] Chlorpheniramine Negative Negative 12/06/19 6:03 PM EDT [facility] Citalopram Negative Negative 12/05/2024 6:03 PM EDT [facility] Clindamycin Negative Negative 12/05/2024 6:03 PM EDT [facility] Clonidine Negative Negative 12/05/2024 6:03 PM EDT [facility] Clopidogrel / Ticlopidine Negative Negative 12/05/2024 6:03 PM EDT [facility] Cocaethylene Negative Negative 12/05/2024 6:03 PM EDT [facility] Cocaine Negative Negative 12/05/2024 6:03 PM EDT [facility] Codeine Negative Negative 12/05/2024 6:03 PM EDT [facility] Cyclobenzaprine Negative Negative 6:03 PM EDT [facility] Desvenlafaxine Negative Negative 12/05/2024 6:03 PM EDT [facility] Dextromethorphan Negative Negative 12/06/19 6:03 PM EDT [facility] Diazepam Negative Negative 12/05/2024 6:03 PM EDT [facility] Diltiazem Negative Negative 12/05/2024 6:03 PM EDT [facility] Diphenhydramine Negative Negative 6:03 PM EDT [facility] Doxepine Negative Negative 12/05/2024 6:03 PM EDT [facility] Doxylamine Negative Negative 12/05/2024 6:03 PM EDT [facility] EDDP-Methadone metabolite Negative Negative 12/05/2024 6:03 PM EDT [facility] Fentanyl Negative Negative 12/05/2024 6:03 PM EDT [facility] Fluconazole Negative Negative 12/05/2024 6:03 PM EDT [facility] Fluoxetine Negative Negative 12/05/2024 6:03 PM EDT [facility] Guaifenesin Negative Negative 12/05/2024 6:03 PM EDT [facility] Haloperidol Negative Negative 12/05/2024 6:03 PM EDT [facility] Heroin/6-BROOKE Negative Negative 12/05/2024 6:03 PM EDT [facility] Hydrocodone Negative Negative 12/05/2024 6:03 PM EDT [facility] Hydroxyzine / Cetirizine metabolite Negative Negative 12/05/2024 6:03 PM EDT [facility] Ibuprofen Negative Negative 12/05/2024 6:03 PM EDT [facility] Imipramine Negative Negative 12/05/2024 6:03 PM EDT [facility] Ketamine Negative Negative 12/05/2024 6:03 PM EDT [facility] Labetolol Negative Negative 12/05/2024 6:03 PM EDT [facility] Lamotrigine Negative Negative 12/05/2024 6:03 PM EDT [facility] Levetiracetam Negative Negative 12/05/2024 6:03 PM EDT [facility] Lidocaine Negative Negative 12/05/2024 6:03 PM EDT [facility] MDA Negative Negative 12/05/2024 6:03 PM EDT [facility] MDMA Negative Negative 12/05/2024 6:03 PM EDT [facility] Memantine Negative Negative 12/05/2024 6:03 PM EDT [facility] Meperidine Negative Negative 12/05/2024 6:03 PM EDT [facility] Meprobamate Negative Negative 12/05/2024 6:03 PM EDT [facility] Metaxalone Negative Negative 12/05/2024 6:03 PM EDT [facility] Methamphetamine Negative Negative 6:03 PM EDT [facility] Methocarbamol Negative Negative 12/05/2024 6:03 PM EDT [facility] Methylecgonine Negative Negative 12/05/2024 6:03 PM EDT [facility] Metoclopramide Negative Negative 12/05/2024 6:03 PM EDT [facility] Metoprolol Negative Negative 12/05/2024 6:03 PM EDT [facility] Metronidazole Negative Negative 12/05/2024 6:03 PM EDT [facility] Midazolam Negative Negative 12/05/2024 6:03 PM EDT [facility] Midazolam Metabolite Negative Negative 12/05/2024 6:03 PM EDT [facility] Mirtazapine Negative Negative 12/05/2024 6:03 PM EDT [facility] Misc Test Result Positive(A) Negative 025 6:03 PM EDT [facility] Comment: Gabapentin: Detected Morphine: Detected Naproxen Negative Negative 12/05/2024 6:03 PM EDT [facility] Nefazodone Negative Negative 12/05/2024 6:03 PM EDT [facility] Norfentanyl Negative Negative 12/05/2024 6:03 PM EDT [facility] Nortriptyline Negative Negative 12/05/2024 6:03 PM EDT [facility] Ordanstron Negative Negative 12/05/2024 6:03 PM EDT [facility] Oxcarbazepine Negative Negative 12/05/2024 6:03 PM EDT [facility] Oxycodone Negative Negative 12/05/2024 6:03 PM EDT [facility] Paroxethine Negative Negative 12/05/2024 6:03 PM EDT [facility] Phenobarbital Negative Negative 12/05/2024 6:03 PM EDT [facility] Phentermine Negative Negative 12/05/2024 6:03 PM EDT [facility] Phenytoin Negative Negative 12/05/2024 6:03 PM EDT [facility] Primidone Negative Negative 12/05/2024 6:03 PM EDT [facility] Promethazine Negative Negative 12/05/2024 6:03 PM EDT [facility] Propofol Negative Negative 12/05/2024 6:03 PM EDT [facility] Propranolol Negative Negative 12/05/2024 6:03 PM EDT [facility] Quetiapine Negative Negative 12/05/2024 6:03 PM EDT [facility] Quinine Negative Negative 12/05/2024 6:03 PM EDT [facility] Rantidine Negative Negative 12/05/2024 6:03 PM EDT [facility] Sertraline Negative Negative 12/05/2024 6:03 PM EDT [facility] Spironolactone Negative Negative 12/05/2024 6:03 PM EDT [facility] Tizanidine Negative Negative 12/05/2024 6:03 PM EDT [facility] Topiramate Negative Negative 12/05/2024 6:03 PM EDT [facility] Tramadol Negative Negative 12/05/2024 6:03 PM EDT [facility] Trazadone/ Trazadone metabolite Negative Negative 12/05/2024 6:03 PM EDT [facility] Trimethoprim Negative Negative 12/05/2024 6:03 PM EDT [facility] Valproic Acid Negative Negative 12/05/2024 6:03 PM EDT [facility] Venlafaxine Negative Negative 12/05/2024 6:03 PM EDT [facility] Verapamil Negative Negative 12/05/2024 6:03 PM EDT [facility] Zolpidem Negative Negative 12/05/2024 6:03 PM EDT [facility] Xylazine Negative Negative 12/05/2024 6:03 PM EDT [facility] Urine Urine specimen obtained by clean catch procedure / Unknown Non-blood Collection / Unknown 12/04/2024 11:00 AM EDT 12/04/2024 11:17 AM EDT us Jeff Cramer APRN LAB URINE ORDERABLES Final Re sult [facility] [address] [place] [address] * (ABNORMAL) Urinalysis with reflex microscopic (Culture NOT Included) (12/04/2024 11:00 AM EDT) Color, Urine Dark Yellow LAB URINALYSIS - AUTOMATED METHOD 12/04/2024 11:40 AM [facility] Clarity, Urine Clear LAB URINALYSIS - AUTOMATED METHOD 12/04/2024 11:40 AM [facility] Spec [place], Urine >1.030(H) 1.005 - 1.030 LAB URINALYSIS - AUTOMATED METHOD 12/04/2024 11:40 AM [facility] pH, Urine 5.5 5.0 - 8.0 LAB URINALYSIS - AUTOMATED METHOD 12/04/2024 11:40 AM [facility] Protein, Urine Trace(A) Negative mg/dL LAB URINALYSIS - AUTOMATED METHOD 12/04/2024 11:40 AM [facility] Glucose, Urine Negative Negative mg/dL LAB URINALYSIS - AUTOMATED METHOD 12/04/2024 11:40 AM [facility] Ketones, Urine Negative Negative mg/dL LAB URINALYSIS - AUTOMATED METHOD 12/04/2024 11:40 AM [facility] Blood, Urine Negative Negative LAB URINALYSIS - AUTOMATED METHOD 12/04/2024 11:40 AM [facility] Bilirubin, Urine Small(A) Negative LAB URINALYSIS - AUTOMATED METHOD 12/04/2024 11:40 AM [facility] Urobilinogen, Urine 1.0 0.2 to 1.0 mg/dL LAB URINALYSIS - AUTOMATED METHOD 12/04/2024 11:40 AM [facility] Leukocytes, Urine Trace(A) Negative LAB URINALYSIS - AUTOMATED METHOD 12/04/2024 11:40 AM [facility] Nitrite, Urine Negative Negative LAB URINALYSIS - AUTOMATED METHOD 12/04/2024 11:40 AM [facility] RBC, Urine <1 0 to 3 /HPF 12/04/2024 11:40 AM [facility] Comment:This result was prev iously suppressed from the chart. WBC, Urine 0 - 5 0 to 5 /HPF 12/04/2024 11:40 AM [facility] Comment:This result was prev iously suppressed from the chart. Squamous Epithelial Cells 0 - 2 0 to 5 /HPF 12/04/2024 11:40 AM [facility] Comment:This result was prev iously suppressed from the chart. Hyaline Casts 0 - 2 0 to 5 /LPF 12/04/2024 11:40 AM [facility] Comment:This result was prev iously suppressed from the chart. Bacteria, Urine Negative Negative 12/04/2024 11:40 AM EDT [facility] Comment:This result was prev iously suppressed from the chart. Urine Urine specimen obtained by clean catch procedure / Unknown Non-blood Collection / Unknown 12/04/2024 11:00 AM EDT 12/04/2024 11:17 AM EDT [facility] - 12/04/2024 11:40 AM EDT Performed by manual method Jeff Cramer APRN LAB URINE ORDERABLES Final Re sult [facility] [address] [place] [id number] * ECG Adult (12/04/2024 5:57 AM EDT) EKG DIAGNOSIS CLASS Abnormal MUSE ECG Ventricular Rate 110 BPM MUSE ECG QRSD Interval 100 ms MUSE ECG QT Interval 354 ms MUSE ECG QTC Interval 479 ms MUSE ECG R Isabel 62 degrees MUSE ECG T Wave Isabel -8 degrees MUSE ECG Diagnosis Atrial fibrillation with rapid ventricular response MUSE ECG Diagnosis Abnormal QRS-T angle, consider primary T wave abnormality MUSE ECG Diagnosis Abnormal ECG MUSE ECG Diagnosis MUSE ECG Diagnosis Confirmed by Lex Sorto ([id number]) on 12/04/2024 1:47:13 PM MUSE ECG 12/04/2024 5:57 AM EDT 12/04/2024 1:47 PM EDT Jeff Cramer APRN ECG ORDERABLES Final Result MUSE ECG * (ABNORMAL) POCT glucose meter (12/04/2024 5:35 AM EDT) POCT Glucose 132(H) 74 - 99 mg/dL 12/04/2024 5:38 AM EDT [facility] Comment:Accuracy of a glucos e result obtained from a capillary whole blood specimen relies upon adequate, non-compromised capillary blood flow. If the capillary glucose result is not consistent with the patient's clinical signs and symptoms, glucose testing should be repeated with either an arterial or venous sample on the glucometer or sent to the main labortory for testing. Comment 12/04/2024 5:38 AM EDT [facility] Abstract Checker ID Aissatou Tuttle 12/04/2024 5:38 AM EDT [facility] Device ID [id number] 12/04/2024 5:38 AM EDT [facility] Specimen Type POC Capillary 12/04/2024 5:38 AM EDT [facility] Blood Capillary blood specimen / Unknown 12/04/2024 5:35 AM EDT 12/04/2024 5:38 AM EDT us Kiko Ball MD LAB POINT OF CARE TE ST DOCKED DEVICE UNSOLICITED RESULTS Final Result Performing Organization Address City/State/[facility] Co de Phone Number [facility] [address] [place] [address] * XR Chest 1 View (12/04/2024 5:19 AM EDT) Anatomical Region Laterality Modality Chest Digital Radiogra phy Impressions 12/04/2024 10:08 AM EDT No focal airspace consolidation. CRITICAL RESULT: No. COMMUNICATION: Per this written report. Drafted by Sourav Mcclendon MD on 12/04/2024 10:07 AM Final report signed by Sourav Mcclendon MD on 12/04/2024 10:08 AM Narrative 12/04/2024 10:08 AM EDT CLINICAL INDICATION: acute/chronic HF, CAD TECHNIQUE: XR CHEST 1 VIEW COMPARISON: 12/03/2024. FINDINGS: Lungs are clear without evidence of focal consolidation or parenchymal opacities. No evidence of a pleural effusion or pneumothorax. Cardiac and mediastinal silhouette are within normal limits. No acute osseous abnormalities. Procedure Note Sourav Mcclendon MD - 12/04/2024 CLINICAL INDICATION: acute/chronic HF, CAD TECHNIQUE: XR CHEST 1 VIEW COMPARISON: 12/03/2024. FINDINGS: Lungs are clear without evidence of focal consolidation or parenchymalopacities. No evidence of a pleural effusion or pneumothorax. Cardiac and mediastinal silhouette are within normal limits. No acute osseous abnormalities. IMPRESSION: No focal airspace consolidation. CRITICAL RESULT: No. COMMUNICATION: Per this written report. Drafted by Sourav Mcclendon MD on 12/04/2024 10:07 AM Final report signed by Souarv Mcclendon MD on 12/04/2024 10:08 AM Jeff Cramer [employer] TE[employer]ER IMG XR PROCEDURES Final Resul t * ED HIV 1/2 Antibody/Antigen Screen w/Reflex to HIV 1/2 Differentiation (12/03/2024 11:18 PM EDT) [facility] HIV 1 & 2 Antibody/Antigen Screen Non Reactive Non Reactive 12/04/2024 12:09 AM EDT [facility] Comment:Screening for HIV 1 & 2 antibodies, and P24 antigen is NONREACTIVE. No confirmatory testing is required. Blood Venous blood specimen / Unknown Venipuncture / Unknown 12/03/2024 11:18 PM EDT 12/03/2024 11:21 PM EDT Margarito CAMARILLO LAB BLOOD ORDERABLES Final Res ult Performing Organization Address City/[facility]/ZIP Co de Phone Number [facility] [address] [place] [address] * Hepatitis C Antibody - ED (12/03/2024 11:18 PM EDT) [facility] Hepatitis C Antibody Negative Negative 12/03/2024 11:54 PM EDT [facility] Blood Venous blood specimen / Unknown Venipuncture / Unknown 12/03/2024 11:18 PM EDT 12/03/2024 11:21 PM EDT Margarito CAMARILLO LAB BLOOD ORDERABLES Final Res ult [facility] [address] [place] [address] * Triglycerides (12/03/2024 11:18 PM EDT) [facility] Triglycerides, Plasma 63 <150 mg/dL 12/04/2024 5:00 AM EDT [facility] Comment: Triglyceride Reference Range (age >17 years): Desirable: <150 mg/dL Borderline high: 150 to 199 mg/dL High: 200 to 499 mg/dL Very high: >499 mg/dL Increased risk of pancreatitis: >1000 mg/dL Fasting greater than or equal to 12 hours? Unknown 12/04/2024 5:00 AM EDT [facility] Blood Venous blood specimen / Unknown Venipuncture / Unknown 12/03/2024 11:18 PM EDT 12/03/2024 11:21 PM EDT Jeff Cramer [employer] LAB BLOOD ORDERABLES Final Re sult [facility] [address] [place] [id number] * CT OUTSIDE IMAGES (12/03/2024 6:40 PM EDT) Anatomical Region Laterality Modality Computed Tomogra phy 12/03/2024 6:40 PM EDT Thomas CAMARILLO IMG CT PROCEDURES Final Result * XR OUTSIDE IMAGES (12/03/2024 5:23 PM EDT) Anatomical Region Laterality Modality Radiographic Kkoi ging 12/03/2024 5:23 PM EDT Thomas CAMARILLO IMG XR PROCEDURES Final Result from Last 3 Months Insurance MEDICARE Advance Directives * Full Code (Latest Code Status on File) Date Activated Date Inactivated Comments 12/25/2024 12:23 PM 12/26/2024 7:11 PM Question Answer Comments I have reviewed the capacity from the link above and, if needed, have updated to appropriate status: Yes * Full Code Date Activated Date Inactivated Comments 12/05/2024 11:00 PM 12/07/2024 8:35 PM Question Answer Comments I have reviewed the capacity from the link above and, if needed, have updated to appropriate status: Yes * Full Code Date Activated Date Inactivated Comments 12/04/2024 1:35 AM 12/04/2024 3:54 PM Question Answer Comments I have reviewed the capacity from the link above and, if needed, have updated to appropriate status: Yes Care Teams Rubber Liner Relationship Specialty Start Date End Date Raimundo Chirinos MD [address] [facility] [address] [place] [address] PCP - General 11/18/21 Moiz Mcnally MD [address] [place] [address] Surgeon Neurosurgery 11/18/21 Bridgett Gonzales, [employer] [address] [place] [address] Nurse Practitioner Neurosurgery 01/07/22 Ynes Rocha LPN [facility] TCM Nurse 12/27/24 Terrance Corral Community Health Worker 12/27/24
--- OUTSIDE RECORDS SUMMARY | 2025-01-01 10:17 | XMS_ITS | Encounter Summary ---
Author Organization [facility] Address [address] [place] [address] Care Team Providers Care Handbag Stitcher Name Role Phone Raimundo Chirinos MD Primary Care Provider Moiz Mcnally MD Unavailable [phone] Bridgett Gonzales PAYROLL OFFICER Unavailable [phone] Reason for Visit * Reason Onset Date Comments Scheduling 12/11/2024 Encounter Details Date Type Department Care Team (Late st Contact Info) Description 12/11/2024 Telephone [facility] [address] [place] [address] Airam Man Scheduling Social History Tobacco Use Types Packs/Day Years [...] any time in the past 12 m [facility], were you homeless or living in a [facility] (including now)? No 12/06/2024 CAGE ASSESSMENT Answer [...] drink first t zeb in the morning (EYE-TINSEL MACHINE OPERATOR) to steady your nerves or [...] as of this encounter Miscellaneous Notes * Telephone Encounter - Airam Man - 12/11/2024 2:59 PM EDT Images from the original note were not included. From: Airam Man Sent: Wednesday, December 11, 2024 2:58 PM To: [email or web address] Subject: Secure Appointment details Hi, As discussed by phone I have attached your instructions and map for you upcoming procedure. I also wanted to remind you of the conversation we had regarding signing a form taking full responsibility of the payment for the procedure due to lack of insurance. You agreed and aware of the form and conversation. The form will be provided to you when you register. Thank You Airam Patient Name: Festus Appointment date: 12/20/24 Arrival Time: 6:30AM *PLEASE NOTE: ARRIVAL TIMES ARE SUBJECT TO CHANGE UNTIL THE DAY BEFORE THE PROCEDURE. WE WILL CALL TO FINALIZE YOUR ARRIVAL TIME THE AFTERNOON BEFORE YOUR PROCEDURE. Location: [place] [address].Parking Garage address is [address] [place] [address] Please remember: Don't eat anything after midnight (unless told otherwise) the day before your procedure. Please hydrate with clear liquids up until 2 hours before your arrival time. Don't chew tobacco, eat mints or chew gum after midnight the day before your procedure. Don't drive a motor vehicle for 24 hours after your procedure. An adult must accompany you to your appointment to take you home. If you do not have adult to take you home, your procedure will be cancelled. If you have a pre-op appointment and or office appointment scheduled you must attend those appointments. If you do not attend your appointments scheduled with Pre-Op and or office appointment your procedure will be cancelled. If you take a blood thinner such as Warfarin ( Coumadin) or Clopidogrel (Plavix), obtain your prescribing's approval to stop taking these medications before your procedure. You should NOT stop takingyour blood thinner unless directed by your prescribing. We will contact you the evening before your procedure to finalize your arrival time. Please make sure we have the best phone number to get a hold of you the day before the procedure. The day of your procedure Arrive on time or early to avoid delays or cancellation. Park in the [facility] garage on [facility] off [facility]. Proceed to Level A and take the free shuttle to the second stop, [facility] [address]. Enter through the revolving door, and go to the Registration Desk. You will be directed to the Endo suite after registration. If you cannot make it to your appointment and need to cancel/reschedule please have the courtesy rinkuall our office as soon as possible at [phone]. Airam Man [facility] Procedure Accounts Payables Clerk -Gastroenterology [facility] scheduling # [phone] (office) [phone] (fax) [email or web address] documented in this encounter Plan of Treatment Upcoming Encounters Date Type Department Care Team (Late st Contact Info) Description 01/24/2025 8:30 AM EDT Office Visit [facility] [address] [place] [phone] Nito Balderas MD [address] [place] [id number] documented as of this encounter Visit Diagnoses Not on filedocumented in this encounter Additional Health Concerns Assessment Noted Time A fall risk assessment has been complete d for the patient 03/10/2022 9:47 AM EDT A Body Mass Index follow-up plan has been documented for the patient 12/07/2024 6:16 PM EDT documented as of this encounter Care Teams Handbag Stitcher Relationship Specialty Start Date End Date Raimundo Chirinos MD [address] [place] [address] [address] [place] [address] PCP - General 11/18/21 Moiz Mcnally MD [address] [place] [address] Surgeon Neurosurgery 11/18/21 Bridgett Gonzales APRN [address] [place] [address] Nurse Practitioner Neurosurgery 01/07/22 documented as of this encounter
--- OUTSIDE RECORDS SUMMARY | 2025-01-01 10:17 | XMS_ITS | Encounter Summary ---
Author Organization [facility] Address [address] [place] [address] Care Team Providers Care Vp Outcomes Name Role Phone Raimundo Chirinos MD Primary Care Provider [phone] Moiz Mcnally MD Unavailable [phone] Bridgett Gonzales HOT FRAME TENDER Unavailable [phone] Encounter Details Date Type Department Care Team (Latest Contact Info) Description 12/04/2024 Travel Social History Tobacco Use Types Packs/Day Years Used Date Smoking Tobacco: Every Day Cigarettes 0.5 48 Smokeless Tobacco: Never Alcohol Use Standard Drinks/Week Comments Never 0 (1 standard drink = 0.6 oz pur e alcohol) Humiliation, Afraid, Rape, and Kick questionnair e Answer Date Recorded Within the last year, have y ou been afraid of your partner or ex-partner? No 12/04/2024 Within the last year, have y ou been humiliated or emotionally abused in other ways by your partner or ex-partner? No Within the last year, have y ou been kicked, hit, slapped, or otherwise physically hurt by your partner or ex-partner? No 12/04/2024 Within the last year, have y ou been raped or forced to have any kind of sexual activity by your partner or ex-partner? No 12/04/2024 Hunger Vital Sign Answer Date Recorded Within the past 12 months, y ou worried that your food would run out before you got the money to buy more. Sometimes true Within the past 12 months, t he food you bought just didn't last and you didn't have money to get more. Sometimes true 03/2025 PRAPARE - Transportation Answer Date Re corded In the past 12 months, has l ack of transportation kept you from medical appointments or from getting medications? No 11/25 In the past 12 months, has l ack of transportation kept you from meetings, work, or from getting things needed for daily living? No 12/04/2024 Housing Stability Vital Sign Answer Uriel e Recorded In the last 12 months, was t here a time when you were not able to pay the mortgage or rent on time? No 12/04/2024 In the past 12 months, how m any times have you moved where you were living? 0 12/04/2024 At any time in the past 12 m [facility], were you homeless or living in a longterm (including now)? No 12/04/2024 CAGE ASSESSMENT Answer Date Recorded Cage unable [...] drink first t zeb in the morning (EYE-SOFTWARE SYSTEMS ENGINEER) to steady your nerves or to get rid of a hangover? 0 12/05/2024 CAGE Questionnaire Score 0 025 Utilities Answer Date Recorded In the past 12 months has th e [employer], gas, oil, or water company threatened to shut off services in your home? No 12/04/2024 Sex and Gender Information Value Date Recorded Sex Assigned at Not on file Legal Sex Male 6:38 PM EDT Gender Identity Not on file Sexual Orientation Not on file documented as of this encounter Functional Status * Calculated C-SSRS Risk Score (Lifetime/Recent) Answer Date of Assessment Author No Risk Indicated 12/04/2024 8:00 AM Alonso Ceron, RN * Question Answer Date of Assessment Author 1. Wish to be (Past 1 Month) No 025 8:00 AM Alonso Ceron, RN 2. Non-Specific Active Suici sharita Thoughts (Past 1 Month) No 12/04/2024 8:00 AM EDT Roberth Freed RN 6. Suicidal Behavior (Lifetime) No 8:00 AM EDT Alonso Freed RN documented as of this encounter Plan of Treatment Upcoming Encounters Date Type Department Care Team (Late st Contact Info) Description 01/24/2025 8:30 AM EDT Office Visit [facility] Multidisciplinary Oncology Clinic [address] [place] [address] Nito Balderas MD [address] [place] [address] documented as of this encounter Visit Diagnoses Not on filedocumented in this encounter Additional Health Concerns Assessment Noted Time A fall risk assessment has been complete d for the patient 03/10/2022 9:47 AM EDT documented as of this encounter Care Teams Vp Outcomes Relationship Specialty Start Date End Date Raimundo Chirinos MD [address] [place], [place] [address] [address] [place] [address] PCP - General 11/18/21 Moiz Mcnally MD [address] [address] Surgeon Neurosurgery 11/18/21 Bridgett Gonzales APRN [address] [address] Nurse Practitioner Neurosurgery 01/07/22 documented as of this encounter
--- OUTSIDE RECORDS SUMMARY | 2025-01-01 10:17 | XMS_ITS | Encounter Summary ---
Author Organization [facility] Address [address] [place] [address] Care Team Providers Care Cooler Supervisor Name Role Phone Raimundo Chirinos MD Primary Care Provider [phone] Moiz Mcnally MD Unavailable [phone] Bridgett Gonzales RN OCCUPATIONAL HEALTH Unavailable [phone] Encounter Details Date Type Department Care Team (Latest Contact Info) Description 12/05/2024 Travel Social History Tobacco Use Types Packs/Day [...] time in the past 12 m [facility], were you homeless or living in a residential (including now)? No 12/06/2024 CAGE ASSESSMENT Answer [...] drink first t zeb in the morning (EYE-PIPE INSPECTOR) to steady your nerves or to get rid of a hangover? 0 12/05/2024 CAGE Questionnaire Score 0 025 Utilities Answer Date Recorded In the past 12 months has th e [employer], gas, oil, or water company threatened to [...] Date of Assessment Author No Risk Indicated 12/05/2024 7:30 PM EDT Eva Quan, RN * Question Answer Date of Assessment Author 1. Wish to be (Past 1 Month) No 025 7:30 PM EDT Eva Quan, RN 2. Non-Specific Active Suici sharita Thoughts (Past 1 Month) No 12/05/2024 7:30 PM EDT Eva Quan, RN 6. Suicidal Behavior (Lifetime) No 7:30 PM EDT Eva Quan, RN documented as of this encounter Plan of Treatment Upcoming Encounters Date Type Department Care Team (Late st Contact Info) Description 01/24/2025 8:30 AM EDT Office Visit [facility] Multidisciplinary Oncology Clinic [address] [place] [address] Nito Balderas MD [address] [place] [address] documented as of this encounter Visit Diagnoses Not on filedocumented in this encounter Additional Health Concerns Assessment Noted Time A fall risk assessment has been complete d for the patient 03/10/2022 9:47 AM EDT A Body Mass Index follow-up plan has been documented for the patient 12/07/2024 6:16 PM EDT documented as of this encounter Care Teams Cooler Supervisor Relationship Specialty Start Date End Date Raimundo Chirinos MD [address] [facility] [address] [place] [address] PCP - General 11/18/21 Moiz Mcnally MD [address] [facility] [address] [place] [phone] Surgeon Neurosurgery 11/18/21 Bridgett Gonzales APRN [address] [place] [address] Nurse Practitioner Neurosurgery 01/07/22 documented as of this encounter
--- OUTSIDE RECORDS SUMMARY | 2025-01-01 10:17 | XMS_ITS | Encounter Summary ---
Author Organization [facility] Address [address] [place] [address] Care Team Providers Care Computer Systems Integrator Name Role Phone Raimundo Chirinos MD Primary Care Provider [phone] Moiz Mcnally MD Unavailable [phone] Bridgett Gonzales BASKET GRADER Unavailable [phone] Encounter Details Date Type Department Care Team (Latest Contact Info) Description 12/06/2024 Travel Social History Tobacco Use Types Packs/Day [...] in a senior care (including now)? No 12/06/2024 CAGE ASSESSMENT Answer [...] drink first t zeb in the morning (EYE-INGREDIENT MIXER) to steady your nerves or to get rid of a hangover? 0 12/05/2024 CAGE Questionnaire Score 0 025 Utilities Answer Date Recorded In the past 12 months has th e [employer], gas, oil, or water company threatened to [...] Date of Assessment Author No Risk Indicated 12/06/2024 8:00 AM Monique Solorzano, RN * Question Answer Date of Assessment Author 1. Wish to be (Past 1 Month) No 025 8:00 AM Monique Solorzano, RN 2. Non-Specific Active Suici sharita Thoughts (Past 1 Month) No 12/06/2024 8:00 AM EDT Thea Bryan, RN 6. Suicidal Behavior (Lifetime) No 8:00 AM EDT Monique Bryan, KENNETH documented as of this encounter Plan of Treatment Upcoming Encounters Date Type Department Care Team (Late st Contact Info) Description 01/24/2025 8:30 AM EDT Office Visit [facility] Multidisciplinary Oncology Clinic [address] [place] [address] Nito Balderas MD [address] [place] [address] documented as of this encounter Visit Diagnoses Not on filedocumented in this encounter Additional Health Concerns Assessment Noted Time A fall risk assessment has been complete d for the patient 03/10/2022 9:47 AM EDT A Body Mass Index follow-up plan has been documented for the patient 12/07/2024 6:16 PM EDT documented as of this encounter Care Teams Computer Systems Integrator Relationship Specialty Start Date End Date Raimundo Chirinos MD [address] [facility] [address] [place] [address] PCP - General 11/18/21 Moiz Mcnally MD [address] [facility] [address] [place] [address] Surgeon Neurosurgery 11/18/21 Bridgett Gonzales APRN [address] [place] [address] Nurse Practitioner Neurosurgery 01/07/22 documented as of this encounter
--- OUTSIDE RECORDS SUMMARY | 2025-01-01 10:17 | XMS_ITS | Encounter Summary ---
Author [facility] Address [address] [place] [address] Care Team Providers Care Kitchen Utility Associate Name Role Phone Raimundo Chirinos MD Primary Care Provider [phone] Moiz Mcnally MD Unavailable [phone] Bridgett Gonzales EMBLEM FUSER TENDER Unavailable [phone] Ynes Rocha BEAD WORKER SEWING Unavailable Unavailab Terrance Hdez Unavailable Unavailable Reason for Visit * Reason Comments Community Resources Encounter Details Date Type Department Care Team (Late st Contact Info) Description 12/31/2024 Patient Outreach [facility] [address] [facility], [address] [place] [address] Terrance Corral Community Resources Social [...] any time in the past 12 m [facility], were you homeless or [...] drink first t zeb in the morning (EYE-AMMONIUM SULFATE OPERATOR) to steady your nerves or to get rid of a hangover? 0 12/05/2024 CAGE Questionnaire Score 0 025 Utilities Answer Date Recorded In the past 12 months has th e [employer], gas, oil, or water company threatened to shut off services in your home? No 12/27/2024 Sex and Gender Information Value Date Recorded Sex Assigned at Not on file Legal Sex Male 6:38 PM EDT Gender Identity Not on file Sexual Orientation Not on file documented as of this encounter Miscellaneous Notes * Progress Notes - Terrance Corral - 12/31/2024 11:39 AM EDT CHW Initial Encounter Note 12/31/2024 Urgent or Non-Urgent Referral: Non Urgent Supervisor Lamp Shades: No Preferred Language: Armenian Supervisor Lamp Shades ID: Outreach 1: 12/27/24 - left vm Outreach 2: 12/31/24 - pt answered Outreach 3: Contact Methods: Phone SDOH Pre-Assessment/Health Maintenance: Utilities: [Unable to pay utilities] and Food: [access to food, any issues, etc.] SDOH Overview: Pt screened positive for need of assistance related to food and utility SDOH needs. SDOH Intervention: CHW outreached pt to identify SDOH needs. Pt stated that money is expected to get tight with medical expenses and increased use of air conditioning in the heat. Pt stated that he believes he requested Pop [facility] referral to soon and is hesitant to accept help at this time, but asked if he could call CHW back at a later date. CHW offered contact information for a local pantry and community action false pass; pt declined at this time. Pt stated he will discuss with his before calling CHW back, to which CHW agreed. CHW will follow up at a later date. Pt enrolled in CHW Program: Yes Next follow-up scheduled: Notes for next follow-up: documented in this encounter Plan of Treatment Upcoming Encounters Date Type Department Care Team (Late st Contact Info) Description 01/24/2025 8:30 AM EDT Office Visit [facility] Multidisciplinary Oncology Clinic [address] [place] [address] Nito Balderas MD [address] [place] [address] documented as of this encounter Visit Diagnoses Not on filedocumented in this encounter Additional Health Concerns Assessment Noted Time A fall risk assessment has been complete d for the patient 03/10/2022 9:47 AM EDT A Body Mass Index follow-up plan has been documented for the patient 12/26/2024 4:50 PM EDT documented as of this encounter Care Teams Kitchen Utility Associate Relationship Specialty Start Date End Date Raimundo Chirinos MD [address] [place], [place] [id number] PCP - General 11/18/21 Moiz Mcnally MD [address] [place] [address] Surgeon Neurosurgery 11/18/21 Bridgett Gonzales APRN [address] [place] [address] Nurse Practitioner Neurosurgery 01/07/22 Ynes Rocha LPN [facility] TCM Nurse 12/27/24 Terrance Corral Community Health Worker 12/27/24 documented as of this encounter
--- OUTSIDE RECORDS SUMMARY | 2025-01-01 10:17 | XMS_ITS ---
Author Organization [facility] Address [address] [place] [address] Care Team Providers Care Bean Viner Name Role Phone Raimundo Chirinos MD Primary Care Provider [phone] Moiz Mcnally MD Unavailable [phone] Bridgett Gonzales JOURNEYMAN WELDER Unavailable [phone] Ynes Rocha LPN Unavailable Unavailab Terrance Hdez Unavailable Unavailable LINK Program Status:Closed (Closed) Start date:12/26/2024 Enrollment date:12/26/2024 End date:12/26/2024 Close reason:Not Eligible Overview Patient identified for LINK program. Program was closed at the time of review. Following chart review, patient determined to be ineligible based on program criteria. Continued Care and Services Coordination
--- OUTSIDE RECORDS SUMMARY | 2025-01-01 10:17 | XMS_ITS | Encounter Summary ---
Author Organization [facility] Address [address] [place] [address] Care Team Providers Care Silk Top Hat Body Maker Name Role Phone Raimundo Chirinos MD Primary Care Provider [phone] Moiz Mcnally MD Unavailable [phone] Bridgett Gonzales EGG TESTER Unavailable [phone] Encounter Details Date Type Department Care Team (Latest Contact Info) Description 12/03/2024 Travel Social History Tobacco Use Types Packs/Day [...] any time in the past 12 m [facility], were you homeless or living in a long term (including now)? No 12/04/2024 Utilities Answer Date Recorded In the past [...] Date of Assessment Author No Risk Indicated 12/03/2024 11:42 PM EDT Jet Quintanilla RN * Question Answer Date of Assessment Author 1. Wish to be (Past 1 Month) No 12/03/2024 11:42 PM EDT Jet Mandujano RN 2. Non-Specific Active Suici sharita Thoughts (Past 1 Month) No 12/03/2024 11:42 PM EDT Tiffanie Mandujano RN 6. Suicidal Behavior (Lifetime) No 11:42 PM EDT Jet Mandujano RN documented as of this encounter Plan of Treatment Upcoming Encounters Date Type Department Care Team (Late st Contact Info) Description 01/24/2025 8:30 AM EDT Office Visit [facility] Multidisciplinary Oncology Clinic [address] [place] [address] Nito Balderas MD [address] [place] [address] documented as of this encounter Visit Diagnoses Not on filedocumented in this encounter Additional Health Concerns Assessment Noted Time A fall risk assessment has been complete d for the patient 03/10/2022 9:47 AM EDT documented as of this encounter Care Teams Silk Top Hat Body Maker Relationship Specialty Start Date End Date Raimundo Chirinos MD [address] [place] [address] [address] [place] [address] PCP - General 11/18/21 Moiz Mcnally MD [address] [place] [address] Surgeon Neurosurgery 11/18/21 Bridgett Gonzales APRN [address] [place] [address] Nurse Practitioner Neurosurgery 01/07/22 documented as of this encounter
--- OUTSIDE RECORDS SUMMARY | 2025-01-01 10:17 | XMS_ITS | Encounter Summary ---
Author Organization [facility] Address [address] [place] [address] Care Team Providers Care Carpenter Supervisor Wooden Ship Name Role Phone Raimundo Chirinos MD Primary Care Provider [phone] Moiz Mcnally MD Unavailable [phone] Bridgett Gonzales AMMUNITION ASSEMBLY II LABORER Unavailable [phone] Encounter Details Date Type Department Care Team (Late st Contact Info) Description 12/03/2024 Orders Only External Location [address] [place] [address] Thomas Hood PA [address] [place] [address] Social History Tobacco Use Types [...] time in the past 12 m [facility], were you homeless or living in a [place] [facility] [place] facility (including now)? No 12/06/2024 CAGE ASSESSMENT Answer [...] drink first t zeb in the morning (EYE-REAL ESTATE PROCESSOR) to steady your nerves or to get [...] No 12/07/2024 8:00 AM EDT Thea Bryan, KENNETH 6. Suicidal Behavior (Lifetime) No 8:00 AM EDT Monique Bryan RN documented as of this encounter Plan of Treatment Upcoming Encounters Date Type Department Care Team (Late st Contact Info) Description 01/24/2025 8:30 AM EDT Office Visit [facility] Multidisciplinary Oncology Clinic [address] [place] [address] Nito Balderas MD [address] [place] [address] documented as of this encounter Procedures Procedure Name Priority Date/Time Associated Diagnosis Comments CT OUTSIDE IMAGES 12/03/2024 6:40 PM EDT documented in this encounter Results * CT OUTSIDE IMAGES (12/03/2024 6:40 PM EDT) Anatomical Region Laterality Modality Computed Tomogra phy 12/03/2024 6:40 PM EDT Thomas CAMARILLO IMG CT PROCEDURES Final Result documented in this encounter Visit Diagnoses Not on filedocumented in this encounter Additional Health Concerns Assessment Noted Time A fall risk assessment has been complete d for the patient 03/10/2022 9:47 AM EDT documented as of this encounter Care Teams Carpenter Supervisor Wooden Ship Relationship Specialty Start Date End Date Raimundo Chirinos MD [address] [facility] [address] [place] [address] PCP - General 11/18/21 Moiz Mcnally MD [address] [place] [address] Surgeon Neurosurgery 11/18/21 Bridgett Gonzales APRN [address] [place] [address] Nurse Practitioner Neurosurgery 01/07/22 documented as of this encounter
--- OUTSIDE RECORDS SUMMARY | 2025-01-01 10:17 | XMS_ITS ---
Author Organization [facility] Address [address] [place] [address] Care Team Providers Care Microbiology Analyst Name Role Phone Raimundo Chirinos MD Primary Care Provider [phone] Moiz Mcnally MD Unavailable [phone] Bridgett Gonzales TRAIN CONTROL TECHNICIAN Unavailable [phone] Ynes Rocha LPN Unavailable Unavailab Terrance Hdez Unavailable Unavailable Transitional Care Management Status:Active (Active) Start date:12/27/2024 Enrollment date:12/27/2024 Enrollment reason:Identified using hospital discharge data Overview This episode type is for outpatient care managers enrolling patients in the [facility] Transitional Care Management program. Case Team Name Relationship Phone Ynes Rocha LPN(Responsible Staff) [facility] Cyn vu Continued Care and Services Coordination
--- OUTSIDE RECORDS SUMMARY | 2025-01-01 10:17 | XMS_ITS | Encounter Summary ---
Author Organization [facility] Address [address] [place] [address] Care Team Providers Care Furniture Painter Name Role Phone Raimundo Chirinos MD Primary Care Provider [phone] Moiz Mcnally MD Unavailable [phone] Bridgett Gonzales BRAND MARKETING COORDINATOR Unavailable [phone] Reason for Visit * Reason Onset Date Comments Scheduling 12/12/2024 Encounter Details Date Type Department Care Team (Late st Contact Info) Description 12/12/2024 Telephone [facility] [address] [place] [address] Airam Man Scheduling Social History Tobacco Use [...] any time in the past 12 m [facility], were you homeless or living in a half-way (including now)? No 12/06/2024 CAGE ASSESSMENT Answer [...] drink first t zeb in the morning (EYE-BUSINESS SYSTEMS ADMINISTRATOR) to steady your nerves or to get [...] * Telephone Encounter - Airam Man - 12/12/2024 8:33 AM EDT Images from the original note were not included. From: Airam Man Sent: Thursday, December 12, 2024 8:33 AM To: [email or web address] Subject: Secure Appointment Information Good morning, As we discussed on the phone I have attached his instructions, map, and financial assistance application which includes their contact information. Please review the information and attachments. If hecontinues to feel sick or gets worse the recommendations are to go to the ER. Hope he starts to feel better and works out for you all. Airam Patient Name: Festus Appointment date: 12/20/24 Arrival Time: ( TIME) 6:30AM *PLEASE NOTE: ARRIVAL TIMES ARE SUBJECT TO CHANGE UNTIL THE DAY BEFORE THE PROCEDURE. WE WILL CALL TO FINALIZE YOUR ARRIVAL TIME THE AFTERNOON BEFORE YOUR PROCEDURE. Location: [place] [address].Parking Garage address is [address] [place] [address] Please remember: Don't eat anything after midnight [...] office appointment your procedure will be cancelled. We will contact you the evening before your procedure to finalize your arrival time. Please make sure we have the best phone number to get a hold of you the day before the procedure. If you take a blood thinner such as Warfarin ( Coumadin) or Clopidogrel (Plavix), obtain your prescribing's approval to stop taking these medications before your procedure. You should NOT stop takingyour blood thinner unless directed by your prescribing. The day of your procedure Arrive on time or early to avoid delays or cancellation. Park in the [facility] garage on [facility] off [facility]. Proceed to Level A and take the free shuttle to the second stop, [address]. Enter through the revolving door, and go to the Registration Desk. You will be directed to the Endo suite after registration. If you cannot make it to your appointment and need to cancel/reschedule please have the courtesy tocall our office as soon as possible at [phone] Air[facility] Man [facility] Procedure Gasket Supervisor -Gastroenterology [facility] scheduling # [phone] (office) [phone] (fax) [email or web address] documented in this encounter Plan of Treatment Upcoming Encounters Date Type Department Care Team (Late st Contact Info) Description 01/24/2025 8:30 AM EDT Office Visit [facility] [address] [place] [address] Nito Balderas MD [address] [place] [address] documented as of this encounter Visit Diagnoses Not on filedocumented in this encounter Additional Health Concerns Assessment Noted Time A fall risk assessment has been complete d for the patient 03/10/2022 9:47 AM EDT A Body Mass Index follow-up plan has been documented for the patient 12/07/2024 6:16 PM EDT documented as of this encounter Care Teams Furniture Painter Relationship Specialty Start Date End Date Raimundo Chirinos MD [facility] [address] [place], [place] [id number] PCP - General 11/18/21 Moiz Mcnally MD [address] [place] [address] Surgeon Neurosurgery 11/18/21 Bridgett Gonzales APRN [address] [place] [address] Nurse Practitioner Neurosurgery 01/07/22 documented as of this encounter
== END 2024-12-31 23:59 | disposition home or self-care (01) ==
LOC: LAB.DROPOF 01-01 10:13
PROVIDERS: PCP Internal Medicine; Visit Provider Internal Medicine
DX: K85.90 Acute pancreatitis without necrosis or infection, unspecified (principal); C25.9 Malignant neoplasm of pancreas, unspecified; R17 Unspecified jaundice; K86.89 Other specified diseases of pancreas
CPT/HCPCS: 80053; 83690

== ENCOUNTER 2025-01-16 08:39 | Outpatient (CLI) | payer MEDICARE, SELFPAY ==
--- OUTSIDE RECORDS SUMMARY | 2024-12-05 19:20 | XMS_ITS | Encounter Summary ---
Author Organization [facility] Address [address] [place] [address] Care Team Providers Care Handle Finisher Name Role Phone Raimundo Chirinos MD Primary Care Provider [phone] Moiz Mcnally MD Unavailable [phone] [facility] ATTENDANT Unavailable [phone] Reason for Visit * Reason Comments Abdominal Pain * Auth/Cert (Routine) Specialty Diagnoses / Procedures Referred By Pola t Referred To Contact Diagnoses Pancreatic mass Chan Antony MD [address] [place] [address] Phone: tel: fax: [facility] Inpatient [address] [place] [address] Phone: tel: Referral ID Status Reason Start Date Expiration Date Visits Re quested Visits Authorized [id number] 1 1 Encounter Details Date Type Department Care Team (Latest Contact Info) Description 12/05/2024 7:20 PM EDT - 12/07/2024 6:30 PM EDT Hospital Encounter [facility] Inpatient [address] [place] [address] Padmini Fitzpatrick MD [address] [place] [address] Chan Antony MD [address] [place] [address] Upper abdominal pain (Primary Dx); [...] any time in the past 12 m [facility], were you homeless or living in a nursing home (including now)? No 12/06/2024 CAGE ASSESSMENT [...] drink first t zeb in the morning (EYE-DIRECTOR INTELLIGENCE ANALYSIS PROGRAMS) to steady your nerves or to get rid of a hangover? 0 12/05/2024 CAGE Questionnaire Score 0 025 Utilities Answer Date Recorded In the past 12 months has [employer], gas, oil, or water [employer] threatened to shut off services in your [...] GI for ERCP with [facility], referral made [phone] Outpatient Follow-Up Planned ERCP with [facility]. [facility] [...] visit and requested continued prayer. Referral From: Proposal Manager Initiated Pastoral Care Provided For: Patient, Spouse Patient Profile: Consult Reasons: Follow up, Continuation of care Spiritual Assessment: Support Systems/ Spiritual Resources: Janey, Family, Prayer Spiritual Needs: Prayer, Spiritual support Spiritual Issues: Family concerns, Global/ social concern Interventions: Interventions Provided: Affirm acceptance and gratitude, Emotional support, Family support, Prayer,Identify confucianist/ spiritual coping, Spiritual support, Supportive Listening, Introduced Patient/Family to Proposal Manager Services Pastoral Care Outcomes: Patient Outcomes: Is knowledgeable about [employer], Gratitude, Identifies spiritual or confucianist practices as helpful, Expresses being seen and heard, Appreciative of Proposal Manager Support * Discharge Summary - Terrance Del Real MD - 12/07/2024 5:55 PM EDT Hospitalization Admit Date/Time: 12/05/2024 7:20 PM Admitting Attending: Chan Antony Discharge Date: 12/07/24 Discharge Attending Physician: Chan Antony MD PCP name and Address: Raimundo Chirinos MD [address] [place] [address] [address] / [place] [id number] Referring provider name and address: No referring provider defined for this encounter. Chief Concern, Brief History of Present Illness, and Hospital Course Guanako Brock is a 64 y.o. male with past history of chronic HFpEF (last EF 45-60%), pAfib (no AC), CAD s/p stents x8, HTN, smoker, and neuropathy presented to [facility] ER with the same symptoms that he was originally admitted for on 12/04. On 12/04 he was admitted for work up of his pancreatic mass, he had some concerns about insurance and left AMA. He is presenting again for the same reasons. Since he has been home his pain is ongoing. Of note, he was originally admitted after being transferred from [facility] on 12/04 for onset 2 weeks [...] Your Medications These medications were sent to [facility] [place] [id number] oxyCODONE 5 MG immediate release tablet senna-docusate [...] GI for ERCP with [facility], referral made [phone] Outpatient Follow-Up Planned ERCP with [facility]. GI [...] x8, HTN, smoker, and neuropathy presented to [facility] ER with the same symptoms [...] Note Guanako Brock 64 y.o. male CSN: [id number] Admission: 12/05/2024 7:20 PM Primary Problem: Pancreatic mass Rn Surgery Icu reviewed chart and spoke with the patient [...] Contact: VinodDebbie Mobile Relation: Spouse Preferred language: Latvian Turn Machine Operator needed? No Insurance: Primary Coverage Payer Plan Sponsor Code Group Number Group Name No coverage found Patient information: Primary Caregiver: Self Support System: Immediate family Daily Living Activities: Functional Status: Independent Living Arrangements: Spouse/Significant other, Family Type of Residence: Private residence, Single Level [address] [place] [phone] Smoker in the Home?: Yes Current DME: [...] Dialysis Services: None Living Will/Advance Directive/Power of Parts Cataloger /Guardian: Unable to assess: No Have you [...] medical history of CHF (congestive heart failure) ([facility]), Coronary artery disease, Hypertension, Lower back pain, [...] session Participants in Care Family/Caregiver Present: No Turn Machine Operator: Not Applicable Presentation Oxygen Therapy: None (Room [...] admission Level of Mobility: Ambulatory- community Mobility [place]aw[place]: Independent gait without device History of Falls: [...] Mobility Bed Mobility Exam: Scooting/Bridging Level of Pawnee: Independent Bed Mobility Exam: Supine to Sit Level of Pawnee: Modified [place] Bed Mobility Exam: Sit to Supine Level of Pawnee: Modified independence Functional Mobility Device: No device [...] Toileting Level of Assistance: Independent Standardized Assessments [facility] 6-Click Daily Activities Help from Other: Don/Doff Regular Lower Body Clothings: None Help From Other: Bathing: None Help From Other: Toileting: None Help From Other: Don/Doff Upper Body Clothings: None Help From Other: Grooming: None Help From Other: Eating Meals: None [facility] 6 Click - Daily Activities Score: [...] medical history of CHF (congestive heart failure) ([facility]), Coronary artery disease, Hypertension, Lower back pain, [...] mobility. Participants in Care Family/Caregiver Present: No Turn Machine Operator: Not Applicable Presentation Oxygen Therapy: None (Room [...] admission Level of Mobility: Ambulatory- community Mobility [place]: Independent gait without device History of Falls: [...] Mobility Bed Mobility Exam: Scooting/Bridging Level of Paw[place]: Independent Bed Mobility Exam: Supine to Sit Level of Paw[place]: Modified [place] Assistive Device: Bed rails Bed Mobility Exam: Sit to Supine Level of [place]aw[place]: Modified independence Assistive Device: Bed rails Transfers Transfer Exam: Sit to stand Level of Pawnee: Stand-by assist Physical/Nonphysical Assist: Supervision Transfer Exam: Stand to Sit Level of Pawnee: Stand-by assist Physical/Nonphysical Assist: Supervision Ambulation Device: [...] Level of Assistance: Standby assist Standardized Assessments [facility] 6-Clicks Mobility Assessment Difficulty patient has turning [...] 3-5 steps with a railing?: A little [facility] 6-Clicks Mobility Assessment Total : 22 No [...] Note Guanako Brock 64 y.o. 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) Estimated Needs: Kcal/ K-30 Kcal Provided: 9835-0067 Kcal Needs Based On: Erie weight (67.3 kg) Gm Protein/ Kg : 1.2-1.5 Protein Provided: 81-101 Protein Needs Based On: Erie weight (67.3 kg) Fluid Provided: 1 ml/kcal or per MD team Metabolic Cart Study Results: Current Nutrition Intake: Diet Supplements: None Diet Order: Adult Diet Diet Texture: Regular Percent Meals Eaten (%): Establishing Diet Experience and Nutrition History: Diet Education Provided: Will monitor Pertinent home medications: Lasix, gabapentin, potassium chloride Yazidi needs: Nutrition Focused Physical Exam: Physical exam [...] weeks, 15#/9.3% wt loss x 2 weeks [employer]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 Status of Nutrition Diagnosis: New Nutrition Interventions [...] 11/20/2021 Added automatically from request for surgery [id number] [2] Past Surgical History: Procedure Laterality Date [...] concerns. Keara Tovar MD PGY-4 Gastroenterology Fellow [facility] Pager: [phone] [1] Past Medical History: Diagnosis Date CHF (congestive heart failure) (CMS/HCC) Coronary artery disease Hypertension Lower back pain Numbness and tingling of both feet Spinal stenosis of lumbar region with neurogenic claudication 11/20/2021 Added automatically from request for surgery [id number] [2] Past Surgical History: Procedure Laterality Date [...] (Individualized) Outcome: Ongoing, Progressing Flowsheets (Taken 12/05/2024 1943) Patient/Family-Specific Goals (Include Timeframe): Get the MRI [...] PM EDTAssociated Order(s): Consult to [facility] Images from the original note were not included. Consult to [facility] Consult performed by: Chan Antony MD Consult ordered by: Raysa Jean Baptiste PA Reason for consult: Admission Subjective Chief complaint Abdominal pain History Of Present Illness Guanako Brock is a 64 y.o. male with past history of chronic HFpEF (last EF 45-60%), pAfib (no AC), CAD s/p stents x8, HTN, smoker, and neuropathy presented to [facility] ER with the same symptoms that he was originally admitted for on 12/04. On 12/04 he was admitted for work up of his pancreatic mass, he had some concerns about insurance and left AMA. He is presenting again for the same reasons. Sincehe has been home his pain is ongoing. Of note, he was originally admitted after being transferred from [facility] on 12/04 for onset 2 weeks [...] 94%. Results Review {Vanishing Link Review Results :[id number] I have reviewed the latest lab and [...] Orders (From admission, onward) Start Ordered 12/05/24 0981 Adult diet Diet texture: Regular Diet effective now References: IDDSI Diet Texture Guide Question: Diet texture Answer: Regular 12/05/24 2300 Code Status Full Code [1] Past Medical History: Diagnosis Date CHF (congestive heart failure) (CMS/HCC) Coronary artery disease Hypertension Lower back pain Numbness and tingling of both feet Spinal stenosis of lumbar region with neurogenic claudication 11/20/2021 Added automatically from request for surgery [id number] [2] Past Surgical History: Procedure Laterality Date [...] FiO2 (%) Right arm -- Physical Exam Falk[place] Coma Scale Score: 15 ED Course & [...] INR 2.5 to 3.5 Prevention of recurrent NC INR 2.5 to 3.5 MAGNESIUM, PLASMA - [...] draw Order ID Start Status Ordering Provider [id number] 12/06/24 0400 Acknowledged CHAN ANTONY 12/07/24 0400 Scheduled ERINCHAN 12/08/24 0400 Scheduled ERIN, CHAN Galvan 12/09/24 0400 Scheduled ERIN, CHAN Galvan 12/10/24 0400 Scheduled ERIN, CHAN Galvan 12/11/24 0400 Scheduled ERIN, CHAN Galvan 12/12/24 0400 Scheduled ERIN, CHAN Galvan Acknowledged ERIN, CHAN Galvan 12/05/24 2300 Comprehensive metabolic panel Morning draw Order ID Start Status Ordering Provider [id number] 12/06/24 0400 Acknowledged ERINCHAN ELLIS 12/07/24 0400 [...] Group Completed CHAN ANTONY 12/05/242054 Consult to [facility] Medicine [facility] Once Specialty: Internal Medicine Provider: (Not yet assigned) Completed RAYSA JEAN BAPTISTE 12/05/242054 ED to floor bed request Once Completed RYASA JEAN BAPTISTE 12/05/241955 PT-INR STAT Final result [...] None Disposition Admit Admitting/Attending Physician: CHAN ANTONY [[id number]] Provider Care Team: [facility] 7 [208] Are they the primary team?: Yes [1] - [1] Past Medical History: Diagnosis Date CHF (congestive heart failure) (CMS/[facility]) Coronary artery disease Hypertension Lower back pain Numbness and tingling of both feet Spinal stenosis of lumbar region with neurogenic claudication 11/20/2021 Added automatically from request for surgery [id number] [2] Past Surgical History: Procedure Laterality Date [...] Description 01/24/2025 8:30 AM EDT Office Visit [facility] Multidisciplinary Oncology Clinic [address] [place] [phone] Nito Balderas MD [address] [place] [phone] documented as of this encounter Procedures Procedure [...] - 23 mg/dL 12/07/2024 4:25 AM EDT [facility] Creatinine, Plasma 1.08 0.70 - 1.20 mg/dL 12/07/2024 4:25 AM EDT [facility] BUN/Creatinine Ratio 17 12/07/2024 4:25 AM EDT [facility] Sodium, Plasma 133(L) 136 - 145 mmol/L 12/07/2024 4:25 AM EDT [facility] Potassium, Plasma 4.2 3.6 - 4.9 mmol/L 12/07/2024 4:25 AM EDT [facility] Chloride, Plasma 103 97 - 107 mmol/L 12/07/2024 4:25 AM EDT [facility] CO2, Plasma 23 22 - 29 mmol/L 12/07/2024 4:25 AM EDT [facility] Anion Gap 7 6 - 16 mmol/L 12/07/2024 4:25 AM EDT [facility] Total Calcium, Plasma 8.5(L) 8.9 - 10.2 mg/dL 12/07/2024 4:25 AM EDT [facility] Total Protein 5.7(L) 6.3 - 7.9 g/dL 12/07/2024 4:25 AM EDT [facility] Albumin, Plasma 3.4(L) 3.5 - 5.2 g/dL 12/07/2024 4:25 AM EDT [facility] AST, Plasma 71(H) 10 - 50 U/L 12/07/2024 4:25 AM EDT [facility] ALT, Plasma 88(H) 10 - 50 U/L 12/07/2024 4:25 AM EDT [facility] Alkaline Phosphatase, Plasma 99 40 - 115 U/L 12/07/2024 4:25 AM EDT [facility] Total Bilirubin, Plasma 1.0 0.2 - 1.1 mg/dL 12/07/2024 4:25 AM EDT [facility] eGFRcr 76.6 mL/min/1.7 3m*2 12/07/2024 4:25 AM EDT [facility] Comment:Reported eGFRcr in m L/min/1.73m2 is based the CKD-EPI 2020 equation that does not use a race coefficient. Blood Venous blood specimen / Unknown Venipuncture / Unknown 12/07/2024 3:38 AM EDT 12/07/2024 3:54 AM EDT Chan Antony MD LAB BLOOD ORDERABLES Final Result [facility] [address] [place] [id number] * (ABNORMAL) CBC and Differential (12/07/2024 3:38 AM EDT) WBC Count 8.59 3.70 - 10.30 10*3/uL LAB HEMATOLOGY METHOD 12/07/2024 4:00 AM EDT [facility] RBC Count 4.93 4.60 - 6.10 10*6/uL LAB HEMATOLOGY METHOD 12/07/2024 4:00 AM EDT [facility] HGB 13.9 13.7 - 17.5 g/dL LAB HEMATOLOGY METHOD 12/07/2024 4:00 AM EDT [facility] HCT 42.7 40.0 - 51.0 % LAB HEMATOLOGY METHOD 12/07/2024 4:00 AM EDT [facility] Platelet Count 216 155 - 369 10*3/uL LAB HEMATOLOGY METHOD 12/07/2024 4:00 AM EDT [facility] MCV 87 79 - 98 fL LAB HEMATOLOGY METHOD 12/07/2024 4:00 AM EDT [facility] MCH 28.2 26.0 - 32.0 pg LAB HEMATOLOGY METHOD 12/07/2024 4:00 AM EDT [facility] MCHC 32.6 30.7 - 35.5 g/dL LAB HEMATOLOGY METHOD 12/07/2024 4:00 AM EDT [facility] RDW 16.8(H) 11.5 - 14.5 % LAB HEMATOLOGY METHOD 12/07/2024 4:00 AM EDT [facility] MPV 11.0 8.8 - 12.5 fL LAB HEMATOLOGY METHOD 12/07/2024 4:00 AM EDT [facility] nRBC 0.0 <=0.0 per 100 WBCs LAB HEMATOLOGY METHOD 12/07[facility]24 [facility] Differential Type Automated LAB HEMATOLOGY METHOD 12/07/2024 4:00 AM EDT [facility] Neutrophils % 73 % LAB HEMATOLOGY METHOD 12/07/2024 4:00 AM EDT [facility] Lymphocytes % 17 % LAB HEMATOLOGY METHOD 12/07/2024 4[facility] Monocytes % 7 % LAB HEMATOLOGY METHOD 12/07/2024 4:00 AM EDT [facility] Eosinophils % 2 % LAB HEMATOLOGY METHOD 12/07/2024 4:00 AM EDT [facility] Basophils % 1 % LAB HEMATOLOGY METHOD 12/07/2024 4:00 AM EDT [facility] Immature Granulocytes % 0 % LAB HEMATOLOGY METHOD 12/07/2024 4:00 AM EDT [facility] Neutrophils Absolute 6.30(H) 1.60 - 6.10 10*3/uL LAB HEMATOLOGY METHOD 12/07/2024 4:00 AM EDT [facility] Lymphocytes Absolute 1.43 1.20 - 3.90 10*3/uL LAB HEMATOLOGY METHOD 12/07/2024 4:00 AM EDT [facility] Monocytes Absolute 0.62 0.30 - 0.90 10*3/uL LAB HEMATOLOGY METHOD 12/07/2024 4:00 AM EDT [facility] Eosinophils Absolute 0.15 0.00 - 0.50 10*3/uL LAB HEMATOLOGY METHOD 12/07/2024 4:00 AM EDT [facility] Basophils Absolute 0.06 0.00 - 0.10 10*3/uL LAB HEMATOLOGY METHOD 12/07/2024 4:00 AM EDT [facility] Immature Granulocytes Absolute 0.03 0.00 - 0.06 10*3/uL LAB HEMATOLOGY METHOD 12/07/2024 4:00 AM EDT [facility] Blood Venous blood specimen / Unknown Venipuncture / Unknown 12/07/2024 3:38 AM EDT 12/07/2024 3:56 AM EDT Narrative [facility] - 12/07/2024 4:00 AM EDT Therapeutic decision making should be based on absolute values, rather than percentages. us Chan Antony MD LAB BLOOD ORDERABLES Final Result Performing Organization Address City/State/[facility] Co de Phone Number [facility] [address] [place] [phone] * MRCP w and wo IV Contrast [...] using the following sequences: coronal single shot [id number] fast spin echo, axial T2 weighted sequences [...] - 23 mg/dL 12/06/2024 6:37 AM EDT [facility] Creatinine, Plasma 1.00 0.70 - 1.20 mg/dL 12/06/2024 6:37 AM EDT [facility] BUN/Creatinine Ratio 19 12/06/2024 6:37 AM EDT [facility] Sodium, Plasma 141 136 - 145 mmol/L 12/06/2024 6:37 AM EDT [facility] Potassium, Plasma 3.9 3.6 - 4.9 mmol/L 12/06/2024 6:37 AM EDT [facility] Chloride, Plasma 112(H) 97 - 107 mmol/L 12/06/2024 6:37 AM EDT [facility] CO2, Plasma 21(L) 22 - 29 mmol/L 12/06/2024 6:37 AM EDT [facility] Anion Gap 8 6 - 16 mmol/L 12/06/2024 6:37 AM EDT [facility] Total Calcium, Plasma 7.7(L) 8.9 - 10.2 mg/dL 12/06/2024 6:37 AM EDT [facility] Total Protein 5.3(L) 6.3 - 7.9 g/dL 12/06/2024 6:37 AM EDT [facility] Albumin, Plasma 3.1(L) 3.5 - 5.2 g/dL 12/06/2024 6:37 AM EDT [facility] AST, Plasma 25 10 - 50 U/L 12/06/2024 6:37 AM EDT [facility] Comment:Hemolyzed, result ma y be falsely increased. ALT, Plasma 34 10 - 50 U/L 12/06/2024 6:37 AM EDT [facility] Alkaline Phosphatase, Plasma 68 40 - 115 U/L 12/06/2024 6:37 AM EDT [facility] Total Bilirubin, Plasma 0.9 0.2 - 1.1 mg/dL 12/06/2024 6:37 AM EDT [facility] eGFRcr 84.0 mL/min/1.7 3m*2 12/06/2024 6:37 AM EDT [facility] Comment:Reported eGFRcr in m L/min/1.73m2 is based the CKD-EPI 2020 equation that does not use a race coefficient. Blood Venous blood specimen / Unknown Venipuncture / Unknown 12/06/2024 5:45 AM EDT 12/06/2024 6:16 AM EDT Chan Antony MD LAB BLOOD ORDERABLES Final Result [facility] [address] [place], [place] [phone] * (ABNORMAL) CBC and Differential (12/06/2024 5:45 AM EDT) WBC Count 7.69 3.70 - 10.30 10*3/uL LAB HEMATOLOGY METHOD 12/06/2024 6:20 AM EDT [facility] RBC Count 4.79 4.60 - 6.10 10*6/uL LAB HEMATOLOGY METHOD 12/06/2024 6:20 AM EDT [facility] HGB 13.7 13.7 - 17.5 g/dL LAB HEMATOLOGY METHOD 12/06/2024 6:20 AM EDT [facility] HCT 41.4 40.0 - 51.0 % LAB HEMATOLOGY METHOD 12/06/2024 6:20 AM EDT [facility] Platelet Count 205 155 - 369 10*3/uL LAB HEMATOLOGY METHOD 12/06/2024 6:20 AM EDT [facility] MCV 86 79 - 98 fL LAB HEMATOLOGY METHOD 12/06/2024 6:20 AM EDT [facility] MCH 28.6 26.0 - 32.0 pg LAB HEMATOLOGY METHOD 12/06/2024 6:20 AM EDT [facility] MCHC 33.1 30.7 - 35.5 g/dL LAB HEMATOLOGY METHOD 12/06/2024 6:20 AM EDT [facility] RDW 16.8(H) 11.5 - 14.5 % LAB HEMATOLOGY METHOD 12/06/2024 6:20 AM EDT [facility] MPV 11.2 8.8 - 12.5 fL LAB HEMATOLOGY METHOD 12/06/2024 6:20 AM EDT [facility] nRBC 0.0 <=0.0 per 100 WBCs LAB HEMATOLOGY METHOD 12/06/2024 6:20 AM EDT [facility] Differential Type Automated LAB HEMATOLOGY METHOD 12/06/2024 6:20 AM EDT [facility] Neutrophils % 68 % LAB HEMATOLOGY METHOD 12/06/2024 6:20 AM EDT [facility] Lymphocytes % 21 % LAB HEMATOLOGY METHOD 12/06/2024 6:20 AM EDT [facility] Monocytes % 7 % LAB HEMATOLOGY METHOD 12/06/2024 6:20 AM EDT [facility] Eosinophils % 3 % LAB HEMATOLOGY METHOD 12/06/2024 6:20 AM EDT [facility] Basophils % 1 % LAB HEMATOLOGY METHOD 12/06/2024 6:20 AM EDT [facility] Immature Granulocytes % 0 % LAB HEMATOLOGY METHOD 12/06/2024 6:20 AM EDT [facility] Neutrophils Absolute 5.32 1.60 - 6.10 10*3/uL LAB HEMATOLOGY METHOD 12/06/2024 6:20 AM EDT [facility] Lymphocytes Absolute 1.58 1.20 - 3.90 10*3/uL LAB HEMATOLOGY METHOD 12/06/2024 6:20 AM EDT [facility] Monocytes Absolute 0.54 0.30 - 0.90 10*3/uL LAB HEMATOLOGY METHOD 12/06/2024 6:20 AM EDT [facility] Eosinophils Absolute 0.19 0.00 - 0.50 10*3/uL LAB HEMATOLOGY METHOD 12/06/2024 6:20 AM EDT [facility] Basophils Absolute 0.04 0.00 - 0.10 10*3/uL LAB HEMATOLOGY METHOD 12/06/2024 6:20 AM EDT [facility] Immature Granulocytes Absolute 0.02 0.00 - 0.06 10*3/uL LAB HEMATOLOGY METHOD 12/06/2024 6:20 AM EDT [facility] Blood Venous blood specimen / Unknown Venipuncture / Unknown 12/06/2024 5:45 AM EDT 12/06/2024 6:16 AM EDT Narrative [facility] - 12/06/2024 6:20 AM EDT Therapeutic decision making should be based on absolute values, rather than percentages. Chan Antony MD LAB BLOOD ORDERABLES Final Result Performing Organization Address [facility] Co de Phone Number [facility] [address] [place] [address] * (ABNORMAL) Cancer antigen 19-9 (12/05/2024 11:19 PM EDT) CA 19.9 158(H) <36 U/mL 12/06/2024 4:09 AM EDT [facility] Blood Venous blood specimen / Unknown Venipuncture / Unknown 12/05/2024 11:19 PM EDT 12/05/2024 11:23 PM EDT Narrative [facility] - 12/06/2024 4:09 AM EDT Performed by Luiza electrochemiluminescent immunoassay. Results obtained with different test methods or kits cannot be used interchangeably. Chan Antony MD LAB BLOOD ORDERABLES Final Result Performing Organization Address City/[facility] Co de Phone Number [facility] [address] [place] [phone] * (ABNORMAL) PT-INR (12/05/2024 8:08 PM EDT) Prothrombin Time 15.5(H) 12.0 - 14.3 sec 12/05/2024 8:25 PM EDT [facility] INR 1.2(H) 0.9 - 1.1 12/05/2024 8:25 PM EDT [facility] Blood Venous blood specimen / [...] INR 2.5 to 3.5 Prevention of recurrent NC INR 2.5 to 3.5 us Raysa CAMARILLO LAB BLOOD ORDERABLES Final R esult Performing Organization Address City/[facility]/ZIP Co de Phone Number [facility] [address] [place] [address] * Lactic acid, venous (12/05/2024 8:08 PM EDT) Lactate, Venous, Whole Blood 1.1 0.5 - 2.2 mmol/L LAB HEMATOLOGY METHOD 12/05/2024 8:18 PM EDT [facility] Blood Venous blood specimen / Unknown Venipuncture / Unknown 12/05/2024 8:08 PM EDT 12/05/2024 8:13 PM EDT us Raysa CAMARILLO LAB BLOOD ORDERABLES Final R esult Performing Organization Address City/[facility] Co de Phone Number [facility] [address] [place] [address] * (ABNORMAL) Lipase (12/05/2024 8:08 PM EDT) Lipase, Plasma 599(H) 19 - 63 U/L 12/05/2024 8:40 PM EDT [facility] Blood Venous blood specimen / Unknown Venipuncture / Unknown 12/05/2024 8:08 PM EDT 12/05/2024 8:13 PM EDT us Raysa CAMARILLO LAB BLOOD ORDERABLES Final R esult [facility] [address] [place] [id number] * (ABNORMAL) CBC w/diff (12/05/2024 8:08 PM EDT) [facility] Signature WBC Count 10.84(H) 3.70 - 10.30 10*3/uL LAB HEMATOLOGY METHOD 12/05/2024 8:16 PM EDT [facility] RBC Count 5.59 4.60 - 6.10 10*6/uL LAB HEMATOLOGY METHOD 12/05/2024 8:16 PM EDT [facility] HGB 15.9 13.7 - 17.5 g/dL LAB HEMATOLOGY METHOD 12/05/2024 8:16 PM EDT [facility] HCT 47.8 40.0 - 51.0 % LAB HEMATOLOGY METHOD 12/05/2024 8:16 PM EDT [facility] Platelet Count 235 155 - 369 10*3/uL LAB HEMATOLOGY METHOD 12/05/2024 8:16 PM EDT [facility] MCV 86 79 - 98 fL LAB HEMATOLOGY METHOD 12/05/2024 8:16 PM EDT [facility] MCH 28.4 26.0 - 32.0 pg LAB HEMATOLOGY METHOD 12/05/2024 8:16 PM EDT [facility] MCHC 33.3 30.7 - 35.5 g/dL LAB HEMATOLOGY METHOD 12/05/2024 8:16 PM EDT [facility] RDW 16.7(H) 11.5 - 14.5 % LAB HEMATOLOGY METHOD 12/05/2024 8:16 PM EDT [facility] MPV 10.6 8.8 - 12.5 fL LAB HEMATOLOGY METHOD 12/05/2024 8:16 PM EDT [facility] nRBC 0.0 <=0.0 per 100 WBCs LAB HEMATOLOGY METHOD 12/05/2024 8:16 PM EDT [facility] Differential Type Automated LAB HEMATOLOGY METHOD 12/05/2024 8:16 PM EDT [facility] Neutrophils % 82 % LAB HEMATOLOGY METHOD 12/05/2024 8:16 PM EDT [facility] Lymphocytes % 11 % LAB HEMATOLOGY METHOD 12/05/2024 8:16 PM EDT [facility] Monocytes % 6 % LAB HEMATOLOGY METHOD 12/05/2024 8:16 PM EDT [facility] Eosinophils % 1 % LAB [...] ORDERABLES Final R esult [facility] [address] [place] [id number] * Magnesium (12/05/2024 8:08 PM EDT) Magnesium, Plasma 2.2 1.9 - 2.4 mg/dL 12/05/2024 8:39 PM EDT [facility] Blood Venous blood specimen / Unknown Venipuncture / Unknown 12/05/2024 8:08 PM EDT 12/05/2024 8:13 PM EDT us Raysa CAMARILLO LAB BLOOD ORDERABLES Final R esult [facility] [address] [place] [address] * (ABNORMAL) CMP (12/05/2024 8:08 PM EDT) Glucose, Plasma 126(H) 74 - 99 mg/dL 12/05/2024 8:39 PM EDT [facility] BUN, Plasma 21 8 - 23 mg/dL 12/05/2024 8:39 PM EDT [facility] Creatinine, Plasma 1.12 0.70 - 1.20 mg/dL 12/05/2024 8:39 PM EDT [facility] BUN/Creatinine Ratio 19 12/05/2024 8:39 PM EDT [facility] Sodium, Plasma 139 136 - 145 mmol/L 12/05/2024 8:39 PM EDT [facility] Potassium, Plasma 3.9 3.6 - 4.9 mmol/L 12/05/2024 8:39 PM EDT [facility] Chloride, Plasma 103 97 - 107 mmol/L 12/05/2024 8:39 PM EDT [facility] CO2, Plasma 24 22 - 29 mmol/L 12/05/2024 8:39 PM EDT [facility] Anion Gap 12 6 - 16 mmol/L 12/05/2024 8:39 PM EDT [facility] Total Calcium, Plasma 9.2 8.9 - 10.2 mg/dL 12/05/2024 8:39 PM EDT [facility] Total Protein 6.6 6.3 - 7.9 g/dL 12/05/2024 8:39 PM EDT [facility] Albumin, Plasma 3.8 3.5 - 5.2 g/dL 12/05/2024 8:39 PM EDT [facility] AST, Plasma 33 10 - 50 U/L 12/05/2024 8:39 PM EDT [facility] ALT, Plasma 49 10 - 50 U/L 12/05/2024 8:39 PM EDT [facility] Alkaline Phosphatase, Plasma 85 40 - 115 U/L 12/05/2024 8:39 PM EDT [facility] Total Bilirubin, Plasma 1.6(H) 0.2 [...] ORDERABLES Final R esult [facility] [address] [place] [address] documented in this encounter Visit Diagnoses Diagnosis [...] Until Discontinued, Routine 0830 (Given - Provider: Moniuqe Byran, KENNETH) gabapentin (Neurontin) capsule 400 mg 400 [...] documented as of this encounter Care Teams Handle Finisher Relationship Specialty Start Date End Date Raimundo Chirinos MD [address] [address] [address] [place] [address] PCP - General 11/18/21 Moiz Mcnally MD [address] [place] [address] Surgeon Neurosurgery 11/18/21 Bridgett Gonzales APRN [address] [place] [address] Nurse Practitioner Neurosurgery 01/07/22 documented as of this encounter
--- OUTSIDE RECORDS SUMMARY | 2024-12-20 06:31 | XMS_ITS | Encounter Summary ---
Author Organization [facility] Address [address] [id number] Care Team Providers Care Logistics/Shipper Name Role Phone Raimundo Chirinos MD Primary Care Provider [phone] Mozi Mcnally MD Unavailable [phone] Bridgett Gonzales [employer] Unavailable Reason for Referral * Imaging (Routine) - Closed Specialty Diagnoses / Procedures Referred By Pola black Referred To Contact Gastroenterology Diagnoses Mass of head of pancreas Procedures ERCP Darian Jaramillo MD [address] [facility] [address] [place] [address] Phone: tel: fax: Referral ID Status Reason Start Date Expiration Date V isits Requested Visits Authorized [id number] Closed Specialty Services Required 12/11/2024 06/12/2026 1 1 * Imaging (Routine) - Closed Specialty Diagnoses / Procedures Referred By Pola black Referred To Contact Gastroenterology Diagnoses Mass of head of pancreas Procedures EUS (Upper) Kiko Ball MD [address] [place] [address] Phone: tel: fax: Referral ID Status Reason Start Date Expiration Date V isits Requested Visits Authorized [id number] Closed Specialty Services Required 12/04/2024 06/05/2026 1 1 Reason for Visit * Imaging (Routine) - Closed Specialty Diagnoses / Procedures Referred By Pola black Referred To Contact Gastroenterology Diagnoses Mass of head of pancreas Procedures ERCP Darian Jaramillo MD [address] [address] Phone: tel: fax: Referral ID Status Reason Start Date Expiration Date V isits Requested Visits Authorized [id number] Closed Specialty Services Required 12/11/2024 06/12/2026 1 1 Encounter Details Date Type Department Care Team (Latest Contact Info) Description 12/20/2024 6:31 AM EDT - 12/20/2024 7:35 AM EDT Hospital Encounter [facility] [address] [place] [address] Darian Jaramillo MD [id number] [place] [address] Acute pancreatitis, unspecified complication status, [...] [facility] the [facility] were you homeless or living in a senior living (including now)? 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) to steady your nerves or to get [...] He has a past medical historyof A-fib ([facility]), CHF (congestive heart failure) ([facility]), Coronary artery disease, Hypertension, Lower back [...] Date A-fib (CMS/HCC) CHF (congestive heart failure) ([facility]) Coronary artery disease Hypertension Lower back pain Numbness and tingling of both feet Spinal stenosis of lumbar region with neurogenic claudication 11/20/2021 Added automatically from request for surgery [id number] [3] Past Surgical History: Procedure Laterality Date [...] from the original note were not included. [id number] Endoscopy Unit: Caring for Yourself after an [...] will be available in the patient portal, [facility]. Or you can call the doctor who [...] from the original note were not included. [id number] Endoscopy Unit: Caring for Yourself after an [...] will be available in the patient portal, [facility], or you can call the doctor who [...] from the original note were not included. [id number] Anesthesia: General Anesthesia You?re due to have [...] medicines you take. This includes prescription and suwp-lmn-oxltlea medicines. It also includes vitamins, herbs, and [...] safe. Last Reviewed Date: 2023 00:00:00 ?? [id number] The [facility]. All rights reserved. This information is not intended as a substitute for professional medical care. Always follow your healthcare professional's instructions. documented in this encounter Plan of Treatment Upcoming Encounters Date Type Department Care Team (Late st Contact Info) Description 01/24/2025 8:30 AM EDT Office Visit [facility] Multidisciplinary Oncology Clinic [address] [place] [phone] Nito Balderas MD [address] [place] [address] documented as of this encounter Procedures Procedure [...] Impression Prior to introduction of the duodenoscope, scout professional sports image was obtained. This showed no foreign [...] medications. 500 mg IV Levaquin [address] indomethacin 1.0 mg IV glucagon (given as two doses of 0.5 mg) Staff Staff Role Sae Barriga MD Anesthesiologist Darian Jaramillo MD Proceduralist Pascual Dunlap, Dominic Umana CRNA Endo Chucking Machine Set Up Operator Pedro Luis Henry RN Endo Nurse Preprocedure [...] Findings Prior to introduction of the duodenoscope, scout professional sports image was obtained. This showed no foreign [...] sample was sent for cytology analysis. Onsite barrel rifler button was not present Recommendations Await pathology results [...] fo this. They report Dr. Chirinos in [place] can see him regularly, if any of these occur. Indication Mass of head of pancreas Medications See anesthesia record for anesthesia administered medications. 500 mg IV Levaquin [address] indomethacin 1.0 mg IV glucagon (given as two doses of 0.5 mg) Staff Staff Role Sae Barriga MD Anesthesiologist Darian Jaramillo MD Proceduralist Pascual Dunlap, Dominic Umana CRNA Endo Chucking Machine Set Up Operator Pedro Luis Henry RN Endo Nurse Preprocedure [...] sample was sent for cytology analysis. Onsite barrel rifler button was not present us Kiko Ball MD GI PROCEDURE ORDERABLES Final Re sult * Fine needle aspiration (12/20/2024 8:21 AM EDT) Case Report Cytology Case: [id number] Authorizing Provider: Darian Jaramillo MD Collected: 12/20/2024 0821 Ordering Location: [facility] Received: 12/20/2024 1104 Pathologist: Carol Hyman MD Specimen: Pancreas, Fine Needle Aspiration, HEAD OF PANCREAS MASS, ENDOSCOPIC ULTRASOUND GUIDED FINE NEEDLE ASPIRATION 12/21/2024 4:16 PM EDT [facility] Final Diagnosis A. HEAD OF PANCREAS MASS, ENDOSCOPIC ULTRASOUND GUIDED FINE NEEDLE ASPIRATION: - SCANT MARKEDLY ATYPICAL CELLS, MOST COMPATIBLE WITH ADENOCARCINOMA (SEE COMMENT). 12/21/2024 4:16 PM EDT [facility] at 1616 EDT Comment Clinical and imaging correlation is suggested. 12/21/2024 4:16 PM EDT [facility] Intradepartmental Consultation with Agreement Dr. Dayami Marks 12/21/2024 4:16 PM EDT [facility] Immediate Evaluation FNA performed by Dr. Jaramillo Number of sticks: Not provided This service has been rendered in part by a resident. A pathologist has personally reviewed the slides/tissue and has rendered and is responsible for diagnosis for the diagnosis that appears on the report. 12/21/2024 4:16 PM EDT [facility] Gross Description A. HEAD OF PANCREAS MASS, ENDOSCOPIC ULTRASOUND GUIDED FINE NEEDLE ASPIRATION 10 ml's tinted Needle rinse fluid processed as ThinPrep and cellblock for complete evaluation of sample. Slides were NOT received Cold Time: 4h 39m 12/21/2024 4:16 PM EDT [facility] Note: A resident was involved in the service. I attest I examined the relevant preparations for the specimens and confirmed the diagnosis or interpretation. 12/21/2024 4:16 PM EDT [facility] Clinical Information K86.89 - Mass of head of pancreas [ICD-10-CM] 12/21/2024 4:16 PM EDT [facility] Fine Needle Aspirate Pancreatic structure / Unknown 12/20/2024 8:21 AM EDT 12/20/2024 11:04 AM EDT us Darian Jaramillo MD LAB CYTOLOGY ORDERABLES Fin al Result Performing Organization Address [facility] de Phone Number [facility] [address] [place] [address] * Surgical Pathology Exam (12/20/2024 8:10 AM EDT) Case Report Surgical Pathology Case: [id number] Authorizing Provider: Darian Jaramillo MD Collected: 12/20/2024 0810 Ordering Location: [facility] Endoscopy Received: 12/20/2024 1014 Pathologist: Jet Mike MD Specimen: Stomach, Gastric Bx 12/21/2024 9:37 AM EDT [facility] Final Diagnosis STOMACH, BIOPSY: - NO PATHOLOGIC ABNORMALITY - NO EVIDENCE OF HELICOBACTER-L CARLOTA ORGANISMS ON ROUTINE STAIN 12/21/2024 9:37 AM EDT [facility] at 0937 EDT Clinical Information K86.89 - Mass of head of pancreas [ICD-10-CM] 12/21/2024 9:37 AM EDT [facility] Gross Description A. GASTRIC BX Received in formalin labeled gastric biopsy are 4 swanson-brown soft tissue fragments measuring 0.2-0.4 cm in greatest dimension. Entirely submitted in cassette A1. Cold Time: <1m Eve Palmer 12/21/2024 9:37 AM EDT [facility] Tissue Stomach structure / Unknown 12/20/2024 8:10 AM EDT 12/20/2024 10:14 AM EDT us Darian Jaramillo MD LAB PATHOLOGY ORDERABLES Fi nal Result Performing Organization Address [facility] Co de Phone Number [facility] [address] [place] [address] documented in this encounter Visit Diagnoses Diagnosis [...] documented as of this encounter Care Teams Logistics/Shipper Relationship Specialty Start Date End Date Raimundo Chirinos MD [address] [place] [address] [address] [place] [address] PCP - General 11/18/21 Moiz Mcnally MD [address] [place] [address] Surgeon Neurosurgery 11/18/21 Bridgett Gonzales APRN [address] [place] [phone] Nurse Practitioner Neurosurgery 01/07/22 documented as of this encounter
--- OUTSIDE RECORDS SUMMARY | 2024-12-20 07:36 | XMS_ITS | Encounter Summary ---
Author Organization [facility] Address [address] [place] [address] Care Team Providers Care Turner In Name Role Phone Raimundo Chriinos MD Primary Care Provider Moiz Mcnally MD Unavailable [phone] Br[address] Gonzales INSPECTOR AND CLIPPER Unavailable [phone] Encounter Details Date Type Department Care Team (Latest Contact Info) Description 12/20/2024 7:36 AM EDT - 12/20/2024 11:59 PM EDT Hospital Encounter [facility] [address] [place] [address] History of ERCP Discharge Disposition: Home or Self Care Social [...] any time in the past 12 m [facility], were you homeless or living in a assisted (including now)? No 12/27/2024 CAGE ASSESSMENT Answer [...] drink first t zeb in the morning (EYE-CHARTERED ACCOUNTANT) to steady your nerves or to get [...] on file documented as of this encounter Functional Status * Calculated C-SSRS [...] by mouth 4 times a day. 5 levoFLOXacin (Levaquin) 500 MG tabletIndications: Acute pancreatitis, unspecified complication status, unspecified pancreatitis type Take 1 tablet by mouth daily for 5 days. 5 tablet 12/21/2024 5 oxyCODONE (Roxicodone) 5 MG immediate release tablet Take 1 tablet by mouth every 4 hours as needed for severe pain. 42 tablet 12/07/2024 5 potassium chloride CR (Klor-Con M20) 20 MEQ ER tablet Take 2 tablets by mouth every other day. With furosemide 12/07/2024 5 documented as of this encounter Plan of Treatment Upcoming Encounters Date Type Department Care Team (Late st Contact Info) Description 01/24/2025 8:30 AM EDT Office Visit [facility] Multidisciplinary Oncology Clinic [address] [place] [address] Nito Balderas MD [address] [place] [address] documented as of this encounter Procedures Procedure Name Priority Date/Time Associated Diagnosis Comments FL ERC Routine 12/20/2024 9:46 AM EDT History of ERCP documented in this encounter Results * FL ERC (12/20/2024 9:46 AM EDT) Narrative IMAGING - 12/20/2024 4:43 PM EDT Images were obtained for surgical purposes. See Darian Jaramillo's surgical note in the patient's chart for the findings. Darian Jaramillo MD IMG FLUOROSCOPY PROCEDURES Final Result IMAGING documented in this encounter Visit Diagnoses Diagnosis History of ERCP documented in this encounter Additional Health Concerns Assessment Noted Time A fall risk assessment has been complete d for the patient 03/10/2022 9:47 AM EDT A Body Mass Index follow-up plan has been documented for the patient 12/07/2024 6:16 PM EDT documented as of this encounter Care Teams Turner In Relationship Specialty Start Date End Date Raimundo Chirinos MD [address] [place] [address] [address] [place] [address] PCP - General 11/18/21 Moiz Mcnally MD [address] [facility] [place] [address] Surgeon Neurosurgery 11/18/21 Bridgett Gonzales APRN [address] [place] [address] Nurse Practitioner Neurosurgery 01/07/22 documented as of this encounter
--- OUTSIDE RECORDS SUMMARY | 2024-12-20 07:53 | XMS_ITS | Encounter Summary ---
Author Organization [facility] Address [address] [place] [address] Care Team Providers Care Computer Hardware Technician Name Role Phone Raimundo Chirinos MD Primary Care Provider [phone] Moiz Mcnally MD Unavailable [phone] Bridgett Gonzales [employer]GBO[employer] ENGINEER Unavailable [phone] Encounter Details Date Type Department Care Team (Late st Contact Info) Description 12/20/2024 7:53 AM EDT Anesthesia Event [facility] [address] [place] [address] Sae Barriga MD [address] [place] [phone] Pascual Dunlap, PEDIATRICIAN MANAGING PARTNER [address] [place] [phone] Anesthesia Record Procedure Summary Procedure Name Responsible Anesthesiologist Anesthesia Start Time Anesthesia Stop Time EUS (UPPER) Sae Barriga MD 12/20/24 0753 0952 Events Date Time Event Comment 12/20/2024 0753 An Start The patient was reevaluated immediately before sedation and remains eligible for anesthesia plan. 0753 In Room 0753 An Start Data 0754 0758 An Induction The patient was reevaluated immediately before moderate or deep sedation use and before anesthesia induction. 0800 An Intubation 0802 Anesthesia Ready 0804 Proc Start 0934 Proc Fin 0942 An Extubation 0946 Out of Room 0947 an stop data 0952 Handoff to Receiving I compl eted my handoff to the receiving clinician during which we: 1. Identified the patient 2. Identified the responsible provider 3. Reviewed the pertinent medical history 4. Discussed the surgical course 5. Reviewed intra-op anesthesia management and issues during anesthesia 6. Set expectations for post-procedure period 7. Allowed opportunity for questions and acknowledgement of understanding. 951 An Stop Meds Name Total propofol (Diprivan) injection 10 mg/mL 2 00 mg rocuronium (ZeMuron) injection 10 mg/mL 25 mg sugammadex (Bridion) injection 100 mg/mL 100 mg fentaNYL (Sublimaze) injection 50 mcg/mL 100 mcg phenylephrine (Tiburcio-Synephrine) prefilled syringe 1 mg/10 mL 500 mcg lidocaine PF (Xylocaine-MPF) 2% 60 mg ondansetron (Zofran) injection 4 mg dexamethasone (Decadron) injection 4 mg/ mL 4 mg levoFLOXacin (Levaquin) 500 mg in 100 mL (premix) 500 mg meToprolol tartrate (Lopressor) injectio n 3 mg glucagon injection 1 mg 1 mg lactated Ringer's infusion 800 mL * Agents Name O2 Air * Blood No blood administrations on file. Lines, Drains, and Airways Type Details Placement Removal Peripheral IV Placement Date: 11/26 12/19; Placement Time: 0715; Catheter Size: 20 G; Orientation: Anterior, Proximal, Right; Location: Forearm; Site Prep: Alcohol; Local Anesth: None; Technique: Anatomical landmarks; Inserted by: Maggie Kelly RN; Insertion Attempts: 1; Patient Tolerance: Tolerated well; Removal Date: 12/20/24; Removal Time: 1059 12/20/24 0715 by Marlen Galeana RN 12/20/24 1059 by Anne Wilde RN ETT Placement Date: 11/26 12/19; Placement Time: 0800 (created via procedure documentation); Technique: Direct laryngoscopy; Type: ETT - single; Single Lumen Tube Size: 7.5 mm; Cuffed: Yes; Laryngoscope: Regine; Blade Size: 3; Location: Oral; Grade View: Grade I; Insertion Attempts: 1; Placement Verification: Auscultation, Capnometry; Airway Comments: Atraumatic. No change to dentition. ; Placed by: PEDIATRICIAN MANAGING PARTNER; Removal Date: 12/20/24; Removal Time: 0942 12/20/24 0800 by Pascual Dunlap CRNA 12/20/24 0942 by Pascual Dunlap, PEDIATRICIAN MANAGING PARTNER documented in this encounter Social History Tobacco Use Types Packs/Day Years [...] any time in the past 12 m [facility], were you homeless or living in a alf (including now)? No 12/06/2024 CAGE ASSESSMENT Answer [...] drink first t zeb in the morning (EYE-DEPUTY CLERK OF SUPERIOR COURT) to steady your nerves or to get rid of a hangover? 0 12/05/2024 CAGE Questionnaire Score 0 025 Utilities Answer Date Recorded In the past 12 months has [employer], gas, oil, or water [employer] threatened to shut off services in your home? No 12/06/2024 Sex and Gender Information Value Date Recorded Sex Assigned at Not on file Legal Sex Male 6:38 PM EDT Gender Identity Not on file Sexual Orientation Not on file documented as of this encounter Miscellaneous Notes * Anesthesia Postprocedure Evaluation - Pascual Dunlap CRNA - 12/20/2024 9:55 AM EDT Patient: Guanako Brock Anesthesia Type: general Vitals Value Taken Time BP 124/78 12/20/24 09:55 Temp 97 12/20/24 09:55 Pulse 103 12/20/24 09:54 Resp 22 12/20/24 09:54 SpO2 100 % 12/20/24 09:54 Vitals shown include unfiled device data. Anesthesia Post Evaluation Patient location during evaluation: PACU Patient participation: complete - patient participated Level of consciousness: awake Pain management: adequate (pain score 0-3) Airway patency: natural airway Cardiovascular status: acceptable and hemodynamically stable Respiratory status: acceptable, blow-by oxygen and face mask Hydration status: acceptable Nausea/Vomiting: No No notable events documented. * Anesthesia Procedure Notes - Pascual Dunlap CRNA - 12/20/2024 8:04 AM EDT Associated Order(s): Airway Airway Date/Time: 12/20/2024 8:00 AM Reason: elective Airway not difficult General Information and Staff Patient location during procedure: OR Anesthesiologist: Sae Barriga MD PEDIATRICIAN MANAGING PARTNER: Pascual Dunlap CRNA Performed: PEDIATRICIAN MANAGING PARTNER Patient Condition Indications for airway management: anesthesia Patient position: sniffing Final Airway Details Final airway type: endotracheal airway Successful airway: ETT Cuffed: yes Successful intubation technique: direct laryngoscopy Adjuncts used in placement: intubating stylet Endotracheal tube insertion site: oral Blade: Regine Blade size: #3 ETT size (mm): 7.5 Cormack-Lehane Classification: grade I - full view of glottis Placement verified by: chest auscultation and capnometry Cuff volume (mL): 7 Measured from: teeth ETT to teeth (cm): 22 Additional Comments Atraumatic. No change to dentition. * Anesthesia Preprocedure Evaluation - Sae Barriga MD - 12/20/2024 7:52 AM EDT Anesthesiologist: Sae Barriga MD PEDIATRICIAN MANAGING PARTNER: Pascual Dunlap CRNA Patient: Guanako Brock HPI Guanako Brock is a 64 y.o. man with PMH heart failure, afib (not on anti- coagulation), tobacco abuse, HTN, CAD s/p 8x stents, and neuropathy who presents for EUS with possible ERCP for pancreatic mass. Procedure Information Date/Time: 12/20/24 0730 Scheduled providers: Darian Jaramillo MD Procedures: EUS (UPPER) ERCP Location: [facility] Relevant Problems Cardio (+) Essential hypertension (+) Paroxysmal A-fib ([facility]/HCC) /Renal (+) ELDER (acute kidney injury) ([facility]) ALLERGIES Allergies[1] NPO STATUS Date of Last Liquid: 12/20/24 Time of Last Liquid: 0430 Date of Last Solid: 12/19/24 Time of Last Solid: 1700 Last Intake Type: Clear fluids Past Medical History[2] AIRWAY HISTORY Airway Detailed Review Displaying the 20 most recent records Date Difficult Airway Blade Size ETT Size C-L Class Final Type Intubation Method 12/11/21 No 4 7.5 grade I - full view of glottis endotracheal airway direct laryngoscopy MEDICATIONS Outpatient Current Outpatient Medications Medication Instructions ??? furosemide (LASIX) 80 mg, Oral, Every other day ??? gabapentin (NEURONTIN) 300 mg, 4 times daily ??? oxyCODONE (ROXICODONE) 5 mg, Oral, Every 4 hours PRN ??? potassium chloride CR (Klor-Con M20) 20 MEQ ER tablet 40 mEq, Oral, Every other day, With furosemide ??? senna-docusate sodium (Senokot-S) 8.6-50 MG tablet 1 tablet, Oral, 2 times daily PRN Scheduled Current Scheduled Medications[3] PRNs Current PRN Medications[4] SURGICAL HX: Surgical History[5] SOCIAL HX: Social History[6] OBJECTIVE DATA LABS Lab Results Component Value Date WBC 8.59 12/07/2024 HGB 13.9 12/07/2024 HCT 42.7 12/07/2024 MCV 87 12/07/2024 PLT 216 12/07/2024 Lab Results Component Value Date CALCIUM 8.5 (L) 12/07/2024 BUN 18 12/07/2024 CREATININE 1.08 12/07/2024 BCR 17 12/07/2024 NA 133 (L) 12/07/2024 K 4.2 12/07/2024 CL 103 12/07/2024 CO2 23 12/07/2024 Type and Screen No results found for: ABO Lab Results Component Value Date HGBA1C 6.3 (H) 12/03/2024 Lab Results Component Value Date PGLU 132 (H) 12/04/2024 GLUCOSE 122 (H) 12/07/2024 ABG Lab Results Component Value Date [id number] 24 12/11/2021 LACTATE 1.2 12/11/2021 Lab Results Component Value Date PH 7.26 (L) 12/11/2021 PCO2 53 (H) 12/11/2021 PO2 274 12/11/2021 [id number] 100.0 (H) 12/11/2021 BASEEXC -4.4 (L) 12/11/2021 HCTSYR 49.1 12/11/2021 KSYR 4.4 12/11/2021 CLSYR 112 (H) 12/11/2021 GLUSYR 99 12/11/2021 CAION 4.5 (L) 12/11/2021 LACTATE 1.2 12/11/2021 ECHO No echocardiogram results found for the past 12 months PFTs No results found for: JDR9EZU , TTZ8QWKC , SWM5VHK , FVCPRED BP Readings from Last 5 Encounters: 12/20/24 (!) 141/93 12/07/24 131/89 12/04/24 124/85 03/10/22 136/86 01/21/22 108/68 Physical Exam Airway Mallampati: I Mouth opening: normal TM distance: >3 FB Neck ROM: full Cardiovascular Rhythm: irregular Rate: tachycardia Dental Comments: Poor dentition Pulmonary Breath sounds clear to auscultation Neurological Oriented: normal to time, normal to place and normal to person Skin Musculoskeletal Extremities Anesthesia Plan ASA 3 Plan was reviewed with: PEDIATRICIAN MANAGING PARTNER Anesthesia technique(s) discussed with the patient/family: general Anesthesia plan agreed upon was: general Anesthetic plan and risks discussed with patient. Use of blood products discussed with patient who consented to blood products. Anesthesia Evaluation [1] Allergies Allergen Reactions ??? Atorvastatin Hallucinations Happens with brand name only [2] Past Medical History: Diagnosis Date ??? A-fib (CMS/HCC) ??? CHF (congestive heart failure) (CMS/HCC) ??? Coronary artery disease ??? Hypertension ??? Lower back pain ??? Numbness and tingling of both feet ??? Spinal stenosis of lumbar region with neurogenic claudication 11/20/2021 Added automatically from request for surgery [id number] [3] [4] [5] Past Surgical History: Procedure Laterality Date ??? CORONARY STENT PLACEMENT ??? KNEE RECONSTRUCTION, MEDIAL PATELLAR FEMORAL LIGAMENT Left 1969 ??? LUMBAR LAMINECTOMY Bilateral 12/11/2021 Posterolateral arthrodesis L3-L4, L4-L5, L5-S1; L4-L5 discectomy and TLIF by Dr. Mcnally ??? TONSILLECTOMY [6] Social History Tobacco Use ??? Smoking status: Every Day Current packs/day: 0.50 Average packs/day: 0.5 packs/day for 48.0 years (24.0 ttl pk-yrs) Types: Cigarettes ??? Smokeless tobacco: Never Vaping Use ??? Vaping status: Never Used Substance Use Topics ??? Alcohol use: Never ??? Drug use: Yes Frequency: 3.0 times per week Types: Marijuana Comment: every two or three days documented in this encounter Plan of Treatment Upcoming Encounters Date Type Department Care Team (Late st Contact Info) Description 01/24/2025 8:30 AM EDT Office Visit [facility] [address] [place] [phone] Nito Balderas MD [address] [place] [phone] documented as of this encounter Procedures Procedure Name Priority Date/Time Associated Diagnosis Comments PB ANESTHESIA PLACEHOLDER Routine 12/20/2024 8:00 AM EDT SD AN ELECTIVE ENDOTRACHEAL AIRWAY Routine 12/20/2024 8:00 AM EDT documented in this encounter Results * SD AN ELECTIVE ENDOTRACHEAL AIRWAY, PB ANESTHESIA PLACEHOLDER (12/20/2024 8:00 AM EDT) Narrative Pascual Dunlap CRNA - 12/20/2024 8:00 AM EDT Pascual Dunlap CRNA 12/20/2024 8:05 AM Airway Date/Time: 12/20/2024 8:00 AM Reason: elective Airway not difficult General Information and Staff Patient location during procedure: OR Anesthesiologist: Sae Barriga MD PEDIATRICIAN MANAGING PARTNER: Pascual Dunlap CRNA Performed: PEDIATRICIAN MANAGING PARTNER Patient Condition Indications for airway management: anesthesia Patient position: sniffing Final Airway Details Final airway type: endotracheal airway Successful airway: ETT Cuffed: yes Successful intubation technique: direct laryngoscopy Adjuncts used in placement: intubating stylet Endotracheal tube insertion site: oral Blade: Regine Blade size: #3 ETT size (mm): 7.5 Cormack-Lehane Classification: grade I - full view of glottis Placement verified by: chest auscultation and capnometry Cuff volume (mL): 7 Measured from: teeth ETT to teeth (cm): 22 Additional Comments Atraumatic. No change to dentition. Sae Barriga MD ANESTHESIA ORDERABLES Final R esult documented in this encounter Visit Diagnoses Not on filedocumented in this encounter Administered Medications Inactive Administered Medications - up to 3 most recent administrations Medication Order MAR Action Action Date Dose Rate Site dexamethasone (Decadron) injection Intravenous, As needed, Starting on Ana Maria 12/20/24 at 0803, Until Ana Maria 12/20/24 at 0955, Routine, Anesthesia Intraprocedure Given 12/20/2024 8:03 AM EDT 4 mg fentaNYL (Sublimaze) injection Intravenous, As needed, Starting on Ana Maria 12/20/24 at 0758, Until Ana Maria 12/20/24 at 0955, Routine, Anesthesia Intraprocedure Given 12/20/2024 7:58 AM EDT 100 mcg glucagon (human recombinant) injection Intravenous, As needed, Starting on Ana Maria 12/20/24 at 0849, Until Ana Maria 12/20/24 at 0955, Routine, Anesthesia Intraprocedure Given 12/20/2024 9:02 AM EDT 0.5 mg Given 12/20/2024 8:49 AM EDT 0.5 mg lactated Ringer's infusion Intravenous, Continuous PRN, Starting on Ana Maria 12/20/24 at 0744, Until Ana Maria 12/20/24 at 0955, Routine New Bag 12/20/2024 9:03 AM EDT New Bag 12/20/2024 7:44 AM EDT levoFLOXacin (Levaquin) IVPB Intravenous, As needed, Starting on Ana Maria 12/20/24 at 0819, Until Ana Maria 12/20/24 at 0955, Administer over 60 Minutes, Routine Given 12/20/2024 8:19 AM EDT 500 mg lidocaine PF (Xylocaine) 2 % injection Intravenous, As needed, Starting on Ana Maria 12/20/24 at 0758, Until Ana Maria 12/20/24 at 0955, Routine, Anesthesia Intraprocedure Given 12/20/2024 7:58 AM EDT 60 mg metoprolol tartrate (Lopressor) injection Intravenous, As needed, Starting on Ana Maria 12/20/24 at 0839, Until Ana Maria 12/20/24 at 0955, Routine, Anesthesia Intraprocedure Given 12/20/2024 9:02 AM EDT 1 mg Given 12/20/2024 8:46 AM EDT 1 mg Given 12/20/2024 8:39 AM EDT 1 mg ondansetron (Zofran) injection Intravenous, As needed, Starting on Ana Maria 12/20/24 at 0758, Until Ana Maria 12/20/24 at 0955, Routine, Anesthesia Intraprocedure Given 12/20/2024 7:58 AM EDT 4 mg phenylephrine in NS (Tiburcio-Synephrine) 100 mcg/mL prefilled syringe Intravenous, As needed, Starting on Ana Maria 12/20/24 at 0808, Until Ana Maria 12/20/24 at 0955, Routine, Anesthesia Intraprocedure Given 12/20/2024 9:08 AM EDT 100 mcg Given 12/20/2024 8:29 AM EDT 100 mcg Given 12/20/2024 8:22 AM EDT 100 mcg propofol (Diprivan) injection Intravenous, As needed, Starting on Ana Maria 12/20/24 at 0758, Until Ana Maria 12/20/24 at 0955, Routine, Anesthesia Intraprocedure Given 12/20/2024 9:38 AM EDT 25 mg Given 12/20/2024 9:36 AM EDT 25 mg Given 12/20/2024 9:27 AM EDT 20 mg rocuronium (ZeMuron) injection Intravenous, As needed, Starting on Ana Maria 12/20/24 at 0758, Until Ana Maria 12/20/24 at 0955, Routine, Anesthesia Intraprocedure Given 12/20/2024 7:58 AM EDT 25 mg sugammadex (Bridion) 100 MG/ML injection Intravenous, As needed, Starting on Ana Maria 12/20/24 at 0936, Until Ana Maria 12/20/24 at 0955, Routine, Anesthesia Intraprocedure Given 12/20/2024 9:36 AM EDT 100 mg documented in this encounter Additional Health Concerns Assessment Noted Time A fall risk assessment has been complete d for the patient 03/10/2022 9:47 AM EDT A Body Mass Index follow-up plan has been documented for the patient 12/07/2024 6:16 PM EDT documented as of this encounter Care Teams Computer Hardware Technician Relationship Specialty Start Date End Date Raimundo Chirinos MD [facility] [address] [place] [address] PCP - General 11/18/21 Moiz Mcnally MD [address] [place] [address] Surgeon Neurosurgery 11/18/21 Bridgett Gonzales APRN [address] [place] [address] Nurse Practitioner Neurosurgery 01/07/22 documented as of this encounter
--- OUTSIDE RECORDS SUMMARY | 2024-12-25 07:53 | XMS_ITS | Encounter Summary ---
Author Organization [facility] Address [address] [id number] Care Team Providers Care Set Designer Name Role Phone Raimundo Chirinos MD Primary Care Provider Moiz Mcnally MD Unavailable [phone] Bridgett Gonzales TAXI PROPRIETOR Unavailable [phone] Purvi Foy RN Unavailable Unavailab le Reason for Referral * Consultation (Routine) - Authorized Specialty Diagnoses / Procedures Referred By Contac t Referred To Contact Family Medicine Diagnoses Malignant neoplasm of body of pancreas (CMS/HCC) Iesha Pride MD [address] [place] [address] Phone: tel: fax: Referral ID Status Reason Start Date Expiration Date V isits Requested Visits Authorized [id number] Authorized 12/26/2024 06/27/2026 1 1 * Consultation (Routine) - Authorized Specialty Diagnoses / Procedures Referred By Contact Referred To Contact Medical Oncology / Hematology and Oncology Diagnoses Malignant neoplasm of pancreas, unspecified location of malignancy (CMS/HCC) Jason Albarran MD [address] [facility] [address] [place] [address] Phone: tel: fax: [facility] Mult[facility] On[facility] [address] [place] [address] Phone: tel: fax: Referral ID Status Reason Start Date Expiration Date Visits Requested Visits Authorized [id number] Authorized Specialty Services Required 12/26/2024 06/27/2026 1 1 * Consultation (Routine) - Authorized Specialty Diagnoses / Procedures Referred By Contac t Referred To Contact Surgical Oncology / Hematology and Oncology Diagnoses Acute pancreatitis, unspecified complication status, unspecified pancreatitis type Pancreatic mass Omar Barnhart MD [address] Phone: tel: fax: Referral ID Status Reason Start Date Expiration Date Visits Requested Visits Authorized [id number] Authorized Specialty Services Required 12/25/2024 06/26/2026 1 1 * Consultation (Routine) - Authorized Specialty Diagnoses / Procedures Referred By Contact Referred To Contact Medical Oncology / Hematology and Oncology Diagnoses Acute pancreatitis, unspecified complication status, unspecified pancreatitis type Pancreatic mass Omar Barnhart MD [address] [place] [address] Phone: tel:[phone] fax:[phone] [facility] [address] [place] [address] Phone: tel: fax: Referral ID Status Reason Start Date Expiration Date Visits Requested Visits Authorized [id number] Authorized Specialty Services Required 12/25/2024 06/26/2026 1 1 Scheduling Instructions New Pancreatic Mass Reason for Visit * Reason Comments Pain * Auth/Cert (Routine) Specialty Diagnoses / Procedures Referred By Contac t Referred To Contact Diagnoses Malignant neoplasm of pancreas, unspecified location of malignancy (CMS/HCC) Bulmaro Fong MD [address] [place], [place] [id number] Phone: tel: fax: [facility] [address] [place] [address] Phone: tel: Referral ID Status Reason Start Date Expiration Date Visits Re quested Visits Authorized [id number] 1 1 Encounter Details Date Type Department Care Team (Latest Contact Info) Description 12/25/2024 7:53 AM EDT - 12/26/2024 5:05 PM EDT Hospital Encounter [facility] Emergency Department [address] [place] [id number] Danny Lucio MD [address] [place] [address] Bulmaro Fong MD [address] [place] [address] Iesha Pride MD [address] [place] [address] Malignant neoplasm of pancreas, unspecified [...] any time in the past 12 [facility], were you homeless or living in a snf (including now)? No 12/27/2024 CAGE ASSESSMENT Answer [...] drink first t zeb in the morning (EYE-SAMPLE DRILLER) to steady your nerves or to get [...] PCP name and Address: Raimundo Chirinos MD [address] [place] [address] [address] / [facility] Referring provider name and address: No referring [...] the mass - We will have our [facility] nurse navigators work with him to [...] that he does not need it. His [id number] is at least 2 PLAN - I [...] Your Medications These medications were sent to [facility] [address] [place], [place] [id number] [facility] [id number] aspirin 81 MG EC tablet metoprolol succinate [...] the mass - We will have our [facility] nurse navigators work with him to [...] that he does not need it. His [id number] is at least 2 PLAN - I [...] Symptoms Outcome: Ongoing, Progressing * H&P - [place], Shoaib J, MD - 12/25/2024 3:39 PM EDT Images from the original note were not included. [facility] Department of Surgery Division of [...] x8, and hypertension who presented to the [facility] on 12/25/2024 withconcerns for intractable nausea, vomiting, [...] x8, and hypertension who presented to the [facility] on 12/25/2024 with concerns for intractable nausea, [...] Rubio Added automatically from request for surgery [id number] Dispo: Continue Current Level of Care CODE STATUS: full code This Consult, Assessment, and Plan has been discussed with Dr. Navarro, Attending Physician Shoaib Ramachandran MD General Surgery, PGY-1 Pager: [phone] 7:16 PM 12/25/2024 [1] Past Medical History: Diagnosis Date A-fib (CMS/HCC) CHF (congestive heart failure) (CMS/HCC) Coronary artery disease Hypertension Lower back pain Numbness and tingling of both feet Spinal stenosis of lumbar region with neurogenic claudication 11/20/2021 Added automatically from request for surgery [id number] [2] Allergies Allergen Reactions Atorvastatin Hallucinations Happens [...] tablet 25 mg 25 mg Oral BID Omra Barnhart MD 25 mg at 12/25/24 1522 [...] Reason for Consult: pancreatic adenocarcinoma Primary Service: [facility] History of Present Illness: Guanako Brock is a 64 y.o. male with a known medical history of chronic HFpEF (last EF 45-60%), pAfib (no AC), CAD s/p stents x8, HTN, smoker, and neuropathy was sent here at the request of his cabinet builder for biopsy proven pancreatic adenocarcinoma. Patient has been evaluated for abdominal mass in the outpatient setting. He was seen by cabinet builder, Dr. Jaramillo, in the outpatient setting in [...] sent here at the request of his cabinet builder for biopsy proven pancreatic adenocarcinoma. Pancreatic adenocarcinoma [...] Austin Jackson D.O. Hematology and Oncology Fellow [facility] [1] Past Medical History: Diagnosis Date A-fib (CMS/HCC) CHF (congestive heart failure) (CMS/HCC) Coronary artery disease Hypertension Lower back pain Numbness and tingling of both feet Spinal stenosis of lumbar region with neurogenic claudication 11/20/2021 Added automatically from request for surgery [id number] [2] Past Surgical History: Procedure Laterality Date [...] mg, 10 mg, Oral, q4h PRN, Omar Banrhart MD oxyCODONE (Roxicodone) immediate release tablet 5 [...] continued pain and directed by Gastroenterology. This functional tester typewriters has spoken gastroenterology who stated they do [...] 97%. Results Review {Vanishing Link Review Results :[id number] I have reviewed the latest lab and [...] developing a clot and potential stroke versus [place]. thus would recommend the patient being on [...] and Affect: Mood normal. Behavior: Behavior normal. [place] Coma Scale Score: 15 ED Course & [...] Basic metabolic panel Morning draw Final result [facility] 12/25/24 1223 CBC and Differential Morning draw Final result [facility] 12/25/24 1223 Magnesium, Plasma Morning draw Final result [facility] 12/25/24 1223 Phosphorus Morning draw Final result [facility] 12/25/24 1223 PT/INR Morning draw Final result [facility] 12/25/24 1223 APTT Morning draw Final result [facility] 12/25/24 1223 Vitamin B12 Morning draw Final result [facility] 12/25/24 1223 Ferritin Morning draw Final result [facility] 12/25/24 1223 Iron & Total Iron Binding Capacity, Plasma (Includes Transferrin) Morning draw Final result [facility] 12/25/24 1223 Lipid panel Morning draw Final result [facility] 12/25/24 1223 Hemoglobin A1c Morning draw In process [facility] 12/25/24 1223 Cortisol Morning draw Final result [facility] 12/25/24 1223 Folate Morning draw Final result [facility] 12/25/24 1223 Hepatic Function Panel Morning draw Final result [facility] 12/25/24 1223 Intake and output Every 6 hours Acknowledged [facility] OMAR Mandy 12/25/24 1223 Ambulate patient 2 [...] Izabela Potts MD Clinical Impressions as of 12/26/24 [...] and. Disposition Admit Admitting/Attending Physician: BULMARO FONG [[id number]] Provider Care Team: MONIKA MELISSA 15 [[id number]] Are they the primary team?: Yes [1] Follow-Ups: Follow up with [facility] Mult[facility] On[facility] (Hematology and Oncology) Discharge Orders Ambulatory referral to Surgical Oncology Authorized Discharge Ambulatory referral to Hematology/Medical Oncology Authorized - [1] Past Medical History: Diagnosis Date A-fib (CMS/HCC) CHF (congestive heart failure) (CMS/HCC) Coronary artery disease Hypertension Lower back pain Numbness and tingling of both feet Spinal stenosis of lumbar region with neurogenic claudication 11/20/2021 Added automatically from request for surgery [id number] [2] Past Surgical History: Procedure Laterality Date [...] Description 01/24/2025 8:30 AM EDT Office Visit [facility] Mult[facility] On[facility] [address] [place] [phone] Nito Balderas MD [address] [place] [id number] Scheduled Referrals Name Type Priority Associated Diagnoses [...] neoplasm of pancreas, unspecified location of malignancy ([facility]/HCC) 1 Occurrences starting 12/26/2024 until 06/29/2026 [...] ADULT TRANSTHORACIC COMPLETE (12/26/2024 9:55 AM EDT) [facility] Signature BSA 1.81 m2 ALLEN ISCV [...] Root Diam 31 mm ALLEN ISCV PA NM(ACCEL) 30.6 mmHg ALLEN ISCV LVLs ap2 8.8 [...] is no recent study available for direct [id number] comparison. Left Ventricle The left ventricle is [...] is no recent study available for direct nzjc-[id number]-[id number] comparison. Result Gael Barnhart MD CV ECHO PROCEDURES Final Resul t * (ABNORMAL) CEA (12/26/2024 2:50 AM EDT) CEA, Serum 8.5(H) <4.0 ng/mL 12/26/2024 3:56 AM EDT [facility] Blood Venous blood specimen / Unknown Venipuncture / Unknown 12/26/2024 2:50 AM EDT 12/26/2024 3:17 AM EDT [facility] - 12/26/2024 3:56 AM EDT Normal range for smokers: < 5.5 ng/ml Normal range for non-smokers: <=4.0 ng/ml Performed by Luiza electrochemiluminescent immunoassay. Results obtained with different test methods or kits cannot be used interchangeably. us Omar Barnhart MD LAB BLOOD ORDERABLES Final Res ult Performing Organization Address [facility] Co de Phone Number [facility] [address] [place] [address] * (ABNORMAL) Cancer antigen 19-9 (12/26/2024 2:50 AM EDT) CA 19.9 248(H) <36 U/mL 12/26/2024 3:56 AM EDT [facility] Blood Venous blood specimen / Unknown Venipuncture / Unknown 12/26/2024 2:50 AM EDT 12/26/2024 3:17 AM EDT [facility] - 12/26/2024 3:56 AM EDT Performed by Luiza electrochemiluminescent immunoassay. Results obtained with different test methods or kits cannot be used interchangeably. us Omar Barnhart MD LAB BLOOD ORDERABLES Final Res ult Performing Organization Address City/[facility]/ZIP Co de Phone Number [facility] [address] [place] [address] * (ABNORMAL) Prealbumin (12/26/2024 2:50 AM EDT) Prealbumin, Plasma 10.0(L) 20.0 - 41.0 mg/dL 12/26/2024 3:47 AM EDT [facility] Blood Venous blood specimen / Unknown Venipuncture / Unknown 12/26/2024 2:50 AM EDT 12/26/2024 3:09 AM EDT us Iesha Pride MD LAB BLOOD ORDERABLE S Final Result Performing Organization Address [facility] Co de Phone Number [facility] [address] [place] [address] * (ABNORMAL) N-Terminal Probnp (12/26/2024 2:50 AM EDT) Pathologist [facility] N-Terminal, PROBNP, Plasma 4,363(H) 0 - 899 pg/mL 12/26/2024 3:46 AM EDT [facility] Blood Venous blood specimen / Unknown Venipuncture / Unknown 12/26/2024 2:50 AM EDT 12/26/2024 3:09 AM EDT us Omar Barnhart MD LAB BLOOD ORDERABLES Final Res ult Performing Organization Address [facility] Co de Phone Number [facility] [address] [place] [address] * (ABNORMAL) Hepatic Function Panel (12/26/2024 2:50 AM EDT) Conjugated Bilirubin, Plasma 0.6(H) <=0.3 mg/dL 12/26/2024 3:46 AM EDT [facility] Comment:Hemolyzed, result ma y be falsely decreased. Alkaline Phosphatase, Plasma 160(H) 40 - 115 U/L 12/26/2024 3:46 AM EDT [facility] Total Bilirubin, Plasma 1.8(H) 0.2 - 1.1 mg/dL 12/26/2024 3:46 AM EDT [facility] Albumin, Plasma 3.4(L) 3.5 - 5.2 g/dL 12/26/2024 3:46 AM EDT [facility] Total Protein 6.0(L) 6.3 - 7.9 g/dL 12/26/2024 3:46 AM EDT [facility] ALT, Plasma 102(H) 10 - 50 U/L 12/26/2024 3:46 AM EDT [facility] AST, Plasma 32 10 - 50 U/L 12/26/2024 3:46 AM EDT [facility] Comment:Hemolyzed, result ma y be falsely increased. Blood Venous blood specimen / Unknown Venipuncture / Unknown 12/26/2024 2:50 AM EDT 12/26/2024 3:09 AM EDT us Omar Barnhart MD LAB BLOOD ORDERABLES Final Res ult Performing Organization Address [facility] Co de Phone Number [facility] [address] [place] [address] * Folate (12/26/2024 2:50 AM EDT) Folate, Serum 5.8 >4.6 ng/mL 12/26/2024 4:05 AM EDT [facility] Blood Venous blood specimen / Unknown Venipuncture / Unknown 12/26/2024 2:50 AM EDT 12/26/2024 3:17 AM EDT us Omar Barnhart MD LAB BLOOD ORDERABLES Final Res ult Performing Organization Address [facility] de Phone Number [facility] [address] [place] [address] * Cortisol (12/26/2024 2:50 AM EDT) Cortisol 13.00 Before 10am: 3.7 - 19.4. After 5pm: 2.9 - 17.3 ug/dL 12/26/2024 4:24 AM EDT [facility] Comment:Testing performed on Insight Guru, standardized against ASSISTED Reference Standard concentration values assigned by LC-MS/MS and verified by BCR 192 and BCR 193 certified reference materials. Blood Venous blood specimen / Unknown Venipuncture / Unknown 12/26/2024 2:50 AM EDT 12/26/2024 3:17 AM EDT us Omar Barnhart MD LAB REF LAB BLOOD AND FLUID OR D Final Result Performing Organization Address [facility] Co de Phone Number [facility] [address] [place] [address] * (ABNORMAL) Hemoglobin A1c (12/26/2024 2:50 AM EDT) Hemoglobin A1c 6.5(H) <5.7 % 12/26/2024 10:53 AM EDT [facility] Blood Venous blood specimen / Unknown Venipuncture / Unknown 12/26/2024 2:50 AM EDT 12/26/2024 3:17 AM EDT Narrative [facility] - 12/26/2024 10:53 AM EDT HA1C Interpretive Data: Diagnosis of Diabetes: Diabetic > or = 6.5% Pre-diabetic 5.7 to 6.4% Non-diabetic < or = 5.6% Glycemic Targets for Type I and Type II Diabetics: Non- Adults <7.0% Adults <6.0% Children and Adolescents <7.5% Source: [place] [employer]. Standards of medical care in diabetes,2017. Diabetes Care.2017:40 (suppl 1):S1-S135. us Omar Barnhart MD LAB BLOOD ORDERABLES Final Res ult Performing Organization Address [facility] Co de Phone Number [facility] [address] [place] [address] * (ABNORMAL) Lipid panel (12/26/2024 2:50 AM EDT) Cholesterol, Plasma 119 <200 mg/dL 12/26/2024 3:46 AM EDT [facility] Comment: Cholesterol Reference Range (age >17 years): Desirable <200 mg/dL Borderline 200 to 239 mg/dL Undesirable >239 mg/dL HDL 37(L) >=40 mg/dL 12/26/2024 3:46 AM EDT [facility] Comment: HDL Cholesterol Reference Ranges (age >17 years): Female, acceptable > or = 50 mg/dL Male, acceptable > or = 40 mg/dL Triglycerides, Plasma 75 <150 mg/dL 12/26/2024 3:46 AM EDT [facility] Comment: Triglyceride Reference Range (age >17 years): Desirable: <150 mg/dL Borderline high: 150 to 199 mg/dL High: 200 to 499 mg/dL Very high: >499 mg/dL Increased risk of pancreatitis: >1000 mg/dL Cholesterol/HDL Ratio 3 12/26/2024 3:46 AM EDT [facility] LDL, Calculated 67 <100 mg/dL 3:46 AM EDT [facility] Comment: LDL Cholesterol Reference [...] 12 hours? No 12/26/2024 3:46 AM EDT [facility] Blood Venous blood specimen / Unknown Venipuncture / Unknown 12/26/2024 2:50 AM EDT 12/26/2024 3:09 AM EDT us Omar Barnhart MD LAB BLOOD ORDERABLES Final Res ult [facility] [address] [place] [address] * Iron & Total Iron Binding Capacity, Plasma (Includes Transferrin) (12/26/2024 2:50 AM EDT) Iron, Plasma 56 50 - 170 ug/dL 12/26/2024 3:46 AM EDT [facility] Transferrin, Plasma 214 200 - 360 mg/dL 12/26/2024 3:46 AM EDT [facility] Total Iron Binding Capacity, Plasma 268 240 - 450 ug/mL 12/26/2024 3:46 AM EDT [facility] Transferrin Saturation 21 14 - 50 % 12/26/2024 3:46 AM EDT [facility] Blood Venous blood specimen / Unknown Venipuncture / Unknown 12/26/2024 2:50 AM EDT 12/26/2024 3:09 AM EDT us Omar Barnhart MD LAB BLOOD ORDERABLES Final Res ult Performing Organization Address City/[facility] Co de Phone Number [facility] [address] [place] [address] * Ferritin (12/26/2024 2:50 AM EDT) Ferritin, Serum 113 20 - 400 ng/mL 12/26/2024 3:56 AM EDT [facility] Blood Venous blood specimen / Unknown Venipuncture / Unknown 12/26/2024 2:50 AM EDT 12/26/2024 3:17 AM EDT us Omar Barnhart MD LAB BLOOD ORDERABLES Final Res ult Performing Organization Address [facility] Co de Phone Number [facility] [address] [place] [address] * Vitamin B12 (12/26/2024 2:50 AM EDT) Vitamin B12, Serum 979 210 - 1,033 pg/mL 12/26/2024 4:05 AM EDT [facility] Blood Venous blood specimen / Unknown Venipuncture / Unknown 12/26/2024 2:50 AM EDT 12/26/2024 3:17 AM EDT us Omar Barnhart MD LAB BLOOD ORDERABLES Final Res ult Performing Organization Address [facility] [place] [address] * (ABNORMAL) APTT (12/26/2024 2:50 AM EDT) aPTT 36(H) 25 - 35 sec 12/26/2024 3:24 AM EDT [facility] Blood Venous blood specimen / Unknown Venipuncture / Unknown 12/26/2024 2:50 AM EDT 12/26/2024 3:09 AM EDT us Omar Barnhart MD LAB BLOOD ORDERABLES Final Res ult Performing Organization Address [facility] Co de Phone Number [facility] [address] [place] [address] * (ABNORMAL) PT/INR (12/26/2024 2:50 AM EDT) Prothrombin Time 16.6(H) 12.0 - 14.3 sec 12/26/2024 3:24 AM EDT [facility] INR 1.4(H) 0.9 - 1.1 12/26/2024 3:24 AM EDT [facility] Blood Venous blood specimen / Unknown Venipuncture / Unknown 12/26/2024 2:50 AM EDT 12/26/2024 3:09 AM EDT Narrative [facility] - 12/26/2024 3:24 AM EDT OPTIMAL INR RANGES FOR PATIENT ON ORAL ANTICOAGULANT THERAPY Prevention of venous thromboembolism INR 2.0 to 3.0 In patients with heart disease: Atrial fibrillation INR 2.0 to 3.0 Valvular heart disease INR 2.0 to 3.0 Tissue heart valves INR 2.0 to 3.0 Mechanical prosthetic valves INR 2.5 to 3.5 Prevention of recurrent [place] INR 2.5 to 3.5 us Omar Barnhart MD LAB BLOOD ORDERABLES Final Res ult Performing Organization Address [facility] Co de Phone Number [facility] [address] [place] [address] * Phosphorus (12/26/2024 2:50 AM EDT) Phosphorus, Plasma 3.5 2.5 - 4.5 mg/dL 12/26/2024 3:47 AM EDT [facility] Blood Venous blood specimen / Unknown Venipuncture / Unknown 12/26/2024 2:50 AM EDT 12/26/2024 3:09 AM EDT us Omar Barnhart MD LAB BLOOD ORDERABLES Final Res ult [facility] [address] [place] [address] * Magnesium, Plasma (12/26/2024 2:50 AM EDT) Pathologist [facility] Magnesium, Plasma 2.1 1.9 - 2.4 mg/dL 12/26/2024 3:46 AM EDT [facility] Blood Venous blood specimen / Unknown Venipuncture / Unknown 12/26/2024 2:50 AM EDT 12/26/2024 3:09 AM EDT us Omar Barnhart MD LAB BLOOD ORDERABLES Final Res ult Performing Organization Address [facility]/ZIP Co de Phone Number [facility] [address] [place] [address] * (ABNORMAL) CBC and Differential (12/26/2024 2:50 AM EDT) [facility] WBC Count 9.17 3.70 - 10.30 10*3/uL LAB HEMATOLOGY METHOD 12/26/2024 3:14 AM EDT [facility] RBC Count 5.37 4.60 - 6.10 10*6/uL LAB HEMATOLOGY METHOD 12/26/2024 3:14 AM EDT [facility] HGB 15.5 13.7 - 17.5 g/dL LAB HEMATOLOGY METHOD 12/26/2024 3:14 AM EDT [facility] HCT 47.2 40.0 - 51.0 % LAB HEMATOLOGY METHOD 12/26/2024 3:14 AM EDT [facility] Platelet Count 236 155 - 369 10*3/uL LAB HEMATOLOGY METHOD 12/26/2024 3:14 AM EDT [facility] MCV 88 79 - 98 fL LAB HEMATOLOGY METHOD 12/26/2024 3:14 AM EDT [facility] MCH 28.9 26.0 - 32.0 pg LAB HEMATOLOGY METHOD 12/26/2024 3:14 AM EDT [facility] MCHC 32.8 30.7 - 35.5 g/dL LAB HEMATOLOGY METHOD 12/26/2024 3:14 AM EDT [facility] RDW 19.0(H) 11.5 - 14.5 % LAB HEMATOLOGY METHOD 12/26/2024 3:14 AM EDT [facility] MPV 11.5 8.8 - 12.5 fL LAB HEMATOLOGY METHOD 12/26/2024 3:14 AM EDT [facility] nRBC 0.0 <=0.0 per 100 WBCs LAB HEMATOLOGY METHOD 12/26/2024 3:14 AM EDT [facility] Differential Type Automated LAB HEMATOLOGY METHOD 12/26/2024 3:14 AM EDT [facility] Neutrophils % 67 % LAB HEMATOLOGY METHOD 12/26/2024 3:14 AM EDT [facility] Lymphocytes % 23 % LAB HEMATOLOGY METHOD 12/26/2024 3:14 AM EDT [facility] Monocytes % 6 % LAB HEMATOLOGY METHOD 12/26/2024 3:14 AM EDT [facility] Eosinophils % 3 % LAB HEMATOLOGY METHOD 12/26/2024 3:14 AM EDT [facility] Basophils % 1 % LAB HEMATOLOGY METHOD 12/26/2024 3:14 AM EDT [facility] Immature Granulocytes % 0 % LAB HEMATOLOGY METHOD 12/26/2024 3:14 AM EDT [facility] Neutrophils Absolute 6.20(H) 1.60 - 6.10 10*3/uL LAB HEMATOLOGY METHOD 12/26/2024 3:14 AM EDT [facility] Lymphocytes Absolute 2.09 1.20 - 3.90 10*3/uL LAB HEMATOLOGY METHOD 12/26/2024 3:14 AM EDT [facility] Monocytes Absolute 0.55 0.30 - 0.90 10*3/uL LAB HEMATOLOGY METHOD 12/26/2024 3:14 AM EDT [facility] Eosinophils Absolute 0.25 0.00 - 0.50 10*3/uL LAB HEMATOLOGY METHOD 12/26/2024 3:14 AM EDT [facility] Basophils Absolute 0.06 0.00 - 0.10 10*3/uL LAB HEMATOLOGY METHOD 12/26/2024 3:14 AM EDT [facility] Immature Granulocytes Absolute 0.02 0.00 - 0.06 10*3/uL LAB HEMATOLOGY METHOD 12/26/2024 3:14 AM EDT [facility] Blood Venous blood specimen / Unknown Venipuncture / Unknown 12/26/2024 2:50 AM EDT 12/26/2024 3:09 AM EDT Narrative [facility] - 12/26/2024 3:14 AM EDT Therapeutic decision making should be based on absolute values, rather than percentages. us Omar Barnhart MD LAB BLOOD ORDERABLES Final Res ult [facility] [address] [place] [address] * (ABNORMAL) Basic metabolic panel (12/26/2024 2:50 AM EDT) Glucose, Plasma 128(H) 74 - 99 mg/dL 12/26/2024 3:47 AM EDT [facility] BUN, Plasma 18 8 - 23 mg/dL 12/26/2024 3:47 AM EDT [facility] Creatinine, Plasma 1.10 0.70 - 1.20 mg/dL 12/26/2024 3:47 AM EDT [facility] BUN/Creatinine Ratio 16 12/26/2024 3:47 AM EDT [facility] Sodium, Plasma 139 136 - 145 mmol/L 12/26/2024 3:47 AM EDT [facility] Potassium, Plasma 4.7 3.6 - 4.9 mmol/L 12/26/2024 3:47 AM EDT [facility] Chloride, Plasma 105 97 - 107 mmol/L 12/26/2024 3:47 AM EDT [facility] CO2, Plasma 23 22 - 29 mmol/L 12/26/2024 3:47 AM EDT [facility] Anion Gap 11 6 - 16 mmol/L 12/26/2024 3:47 AM EDT [facility] Total Calcium, Plasma 8.9 8.9 - 10.2 mg/dL 12/26/2024 3:47 AM EDT [facility] eGFRcr 75.0 mL/min/1.7 3m*2 12/26/2024 3:47 AM EDT [facility] Comment:Reported eGFRcr in m L/min/1.73m2 is based the CKD-EPI 2020 equation that does not use a race coefficient. Blood Venous blood specimen / Unknown Venipuncture / Unknown 12/26/2024 2:50 AM EDT 12/26/2024 3:09 AM EDT us Omar Barnhart MD LAB BLOOD ORDERABLES Final Res ult [facility] [address] [place] [address] * CT Chest w IV Contrast (12/25/2024 [...] - 63 U/L 12/25/2024 1:21 PM EDT [facility] Blood Venous blood specimen / Unknown Venipuncture / Unknown 12/25/2024 12:49 PM EDT 12/25/2024 12:52 PM EDT us Omar Barnhart MD LAB BLOOD ORDERABLES Final Res ult Performing Organization Address [facility] Co de Phone Number [facility] [address] [place] [address] * Phosphorus (12/25/2024 9:08 AM EDT) Phosphorus, Plasma 3.2 2.5 - 4.5 mg/dL 12/25/2024 10:01 AM EDT [facility] Blood Venous blood specimen / Unknown Venipuncture / Unknown 12/25/2024 9:08 AM EDT 12/25/2024 9:33 AM EDT us Danny Lucio MD LAB BLOOD ORDERABLES Final Re sult Performing Organization Address City/[facility]/ZIP Co de Phone Number [facility] [address] [place] [address] * Magnesium (12/25/2024 9:08 AM EDT) Magnesium, Plasma 2.1 1.9 - 2.4 mg/dL 12/25/2024 10:01 AM EDT [facility] Blood Venous blood specimen / Unknown Venipuncture / Unknown 12/25/2024 9:08 AM EDT 12/25/2024 9:33 AM EDT us Danny Lucio MD LAB BLOOD ORDERABLES Final Re sult [facility] [address] [place] [address] * (ABNORMAL) CMP (12/25/2024 9:08 AM EDT) Glucose, Plasma 143(H) 74 - 99 mg/dL 12/25/2024 10:01 AM EDT [facility] BUN, Plasma 15 8 - 23 mg/dL 12/25/2024 10:01 AM EDT [facility] Creatinine, Plasma 0.95 0.70 - 1.20 mg/dL 12/25/2024 10:01 AM EDT [facility] BUN/Creatinine Ratio 16 12/25/2024 10:01 AM EDT [facility] Sodium, Plasma 139 136 - 145 mmol/L 12/25/2024 10:01 AM EDT [facility] Potassium, Plasma 5.2(H) 3.6 - 4.9 mmol/L 12/25/2024 10:01 AM EDT [facility] Comment:Hemolyzed, result ma y be falsely increased. Chloride, Plasma 106 97 - 107 mmol/L 12/25/2024 10:01 AM EDT [facility] CO2, Plasma 21(L) 22 - 29 mmol/L 12/25/2024 10:01 AM EDT [facility] Anion Gap 12 6 - 16 mmol/L 12/25/2024 10:01 AM EDT [facility] Total Calcium, Plasma 9.4 8.9 - 10.2 mg/dL 12/25/2024 10:01 AM EDT [facility] Total Protein 6.8 6.3 - 7.9 g/dL 12/25/2024 10:01 AM EDT [facility] Albumin, Plasma 3.9 3.5 - 5.2 g/dL 12/25/2024 10:01 AM EDT [facility] AST, Plasma 63(H) 10 - 50 U/L 12/25/2024 10:01 AM EDT [facility] Comment:Hemolyzed, result ma y be falsely increased. ALT, Plasma 131(H) 10 - 50 U/L 12/25/2024 10:01 AM EDT [facility] Comment:Hemolyzed, result ma y be falsely increased or decreased. Alkaline Phosphatase, Plasma 197(H) 40 - 115 U/L 12/25/2024 10:01 AM EDT [facility] Comment:Hemolyzed, result ma y be falsely decreased. Total Bilirubin, Plasma 2.5(H) 0.2 - 1.1 mg/dL 12/25/2024 10:01 AM EDT [facility] eGFRcr 89.4 mL/min/1.7 3m*2 12/25/2024 10:01 AM EDT [facility] Comment:Reported eGFRcr in m L/min/1.73m2 is based the CKD-EPI 2020 equation that does not use a race coefficient. Blood Venous blood specimen / Unknown Venipuncture / Unknown 12/25/2024 9:08 AM EDT 12/25/2024 9:33 AM EDT us Danny Lucio MD LAB BLOOD ORDERABLES Final Re sult [facility] [address] [place] [address] * (ABNORMAL) PT-INR (12/25/2024 9:08 AM EDT) Prothrombin Time 15.8(H) 12.0 - 14.3 sec 12/25/2024 9:51 AM EDT [facility] INR 1.3(H) 0.9 - 1.1 12/25/2024 9:51 AM EDT [facility] Blood Venous blood specimen / Unknown Venipuncture / Unknown 12/25/2024 9:08 AM EDT 12/25/2024 9:33 AM EDT Narrative [facility] - 12/25/2024 9:51 AM EDT OPTIMAL INR RANGES FOR PATIENT ON ORAL ANTICOAGULANT THERAPY Prevention of venous thromboembolism INR 2.0 to 3.0 In patients with heart disease: Atrial fibrillation INR 2.0 to 3.0 Valvular heart disease INR 2.0 to 3.0 Tissue heart valves INR 2.0 to 3.0 Mechanical prosthetic valves INR 2.5 to 3.5 Prevention of recurrent [place] INR 2.5 to 3.5 us Danny Lucio MD LAB BLOOD ORDERABLES Final Re sult [facility] [address] [place] [address] * (ABNORMAL) CBC w/diff (12/25/2024 9:08 AM EDT) WBC Count 9.76 3.70 - 10.30 10*3/uL LAB HEMATOLOGY METHOD 12/25/2024 9:35 AM EDT [facility] RBC Count 5.91 4.60 - 6.10 10*6/uL LAB HEMATOLOGY METHOD 12/25/2024 9:35 AM EDT [facility] HGB 17.3 13.7 - 17.5 g/dL LAB HEMATOLOGY METHOD 12/25/2024 9:35 AM EDT [facility] HCT 50.3 40.0 - 51.0 % LAB HEMATOLOGY METHOD 12/25/2024 9:35 AM EDT [facility] Platelet Count 216 155 - 369 10*3/uL LAB HEMATOLOGY METHOD 12/25/2024 9:35 AM EDT [facility] MCV 85 79 - 98 fL LAB HEMATOLOGY METHOD 12/25/2024 9:35 AM EDT [facility] MCH 29.3 26.0 - 32.0 pg LAB HEMATOLOGY METHOD 12/25/2024 9:35 AM EDT [facility] MCHC 34.4 30.7 - 35.5 g/dL LAB HEMATOLOGY METHOD 12/25/2024 9:35 AM EDT [facility] RDW 19.2(H) 11.5 - 14.5 % LAB HEMATOLOGY METHOD 12/25/2024 9:35 AM EDT [facility] MPV 11.1 8.8 - 12.5 fL LAB HEMATOLOGY METHOD 12/25/2024 9:35 AM EDT [facility] nRBC 0.0 <=0.0 per 100 WBCs LAB HEMATOLOGY METHOD 12/25/2024 9:35 AM EDT [facility] Differential Type Automated LAB HEMATOLOGY METHOD 12/25/2024 9:35 AM EDT [facility] Neutrophils % 80 % LAB HEMATOLOGY METHOD 12/25/2024 9:35 AM EDT [facility] Lymphocytes % 13 % LAB HEMATOLOGY METHOD 12/25/2024 9:35 AM EDT [facility] Monocytes % 6 % LAB HEMATOLOGY METHOD 12/25/2024 9:35 AM EDT [facility] Eosinophils % 1 % LAB HEMATOLOGY METHOD 12/25/2024 9:35 AM EDT [facility] Basophils % 0 % LAB HEMATOLOGY METHOD 12/25/2024 9:35 AM EDT [facility] Immature Granulocytes % 0 % LAB HEMATOLOGY METHOD 12/25/2024 9:35 AM EDT [facility] Neutrophils Absolute 7.72(H) 1.60 - 6.10 10*3/uL LAB HEMATOLOGY METHOD 12/25/2024 9:35 AM EDT [facility] Lymphocytes Absolute 1.28 1.20 - 3.90 10*3/uL LAB HEMATOLOGY METHOD 12/25/2024 9:35 AM EDT [facility] Monocytes Absolute 0.56 0.30 - 0.90 10*3/uL LAB HEMATOLOGY METHOD 12/25/2024 9:35 AM EDT [facility] Eosinophils Absolute 0.13 0.00 - 0.50 10*3/uL LAB HEMATOLOGY METHOD 12/25/2024 9:35 AM EDT [facility] Basophils Absolute 0.04 0.00 - 0.10 10*3/uL LAB HEMATOLOGY METHOD 12/25/2024 9:35 AM EDT [facility] Immature Granulocytes Absolute 0.03 0.00 - 0.06 10*3/uL LAB HEMATOLOGY METHOD 12/25/2024 9:35 AM EDT [facility] Blood Venous blood specimen / Unknown Venipuncture / Unknown 12/25/2024 9:08 AM EDT 12/25/2024 9:33 AM EDT Narrative [facility] - 12/25/2024 9:35 AM EDT Therapeutic decision making should be based on absolute values, rather than percentages. us Danny Lucio MD LAB BLOOD ORDERABLES Final Re sult [facility] [address] [place] [address] documented in this encounter Visit Diagnoses Diagnosis [...] documented as of this encounter Care Teams Set Designer Relationship Specialty Start Date End Date Raimundo Chirinos MD [address] [place] [address] PCP - General 11/18/21 Moiz Mcnally MD [address] [id number] Surgeon Neurosurgery 11/18/21 Bridgett Gonzales APRN [address] [place] [address] Nurse Practitioner Neurosurgery 01/07/22 Purvi Foy, RN [facility] Registered Nurse 12/26/24 12/26/24 documented as of this encounter
--- OUTSIDE RECORDS SUMMARY | 2025-01-01 17:29 | XMS_ITS | Encounter Summary ---
Author Organization [facility] Address [address] [place] [address] Care Team Providers Care Centura Technical Lead Senior Developer Name Role Phone Raimundo Chirinos MD Primary Care Provider [phone] Moiz Mcnally MD Unavailable [phone] Bridgett Gonzales BRIDGE LEVERMAN Unavailable [phone] Ynes Rocha TEACHER SPECIALIST Unavailable Unavailab Terrance Hdez Unavailable Unavailable Reason for Referral * Consultation (Routine) - Authorized Specialty Diagnoses / Procedures Referred By Pola black Referred To Contact Gastroenterology Diagnoses Epigastric pain Biliary obstruction Pancreatic mass Phill Forbes MD [address] [place] [address] Phone: tel: fax: [facility] [address] [place] [address] Phone: tel: fax: Referral ID Status Reason Start Date Expiration Date Visits Requested Visits Authorized [id number] Authorized Specialty Services Required 01/03/2025 07/05/2026 1 1 * Consultation (Routine) - Authorized Specialty Diagnoses / Procedures Referred By Pola black Referred To Contact Family Medicine Diagnoses Epigastric pain Biliary obstruction Pancreatic mass Phill Forbes MD [address] [place] [address] Phone: tel: fax: Referral ID Status Reason Start Date Expiration Date V isits Requested Visits Authorized [id number] Authorized 01/03/2025 07/05/2026 1 1 * Imaging (Routine) - Pending Review Specialty Diagnoses / Procedures Referred By Contac t Referred To Contact Gastroenterology Diagnoses Pancreatic mass Procedures ERCP Phill Forbes MD [address] [place] [address] Phone: tel: fax: Referral ID Status Reason Start Date Expiration Date Visits Requested Visits Authorized [id number] Pending Review Specialty Services Required 01/03/2025 07/05/2026 1 1 Reason for Visit * Reason Comments Abdominal Pain * Auth/Cert (Routine) Specialty Diagnoses / Procedures Referred By Pola t Referred To Contact Diagnoses Biliary obstruction Phill Forbes MD [address] [place] [address] Phone: tel: fax: [facility] Emergency Department [address] [place] [address] Phone: tel: Referral ID Status Reason Start Date Expiration Date Visits Re quested Visits Authorized [id number] 1 1 Encounter Details Date Type Department Care Team (Latest Contact Info) Description 01/01/2025 5:29 PM EDT - 01/03/2025 3:53 PM EDT Hospital Encounter [facility] Inpatient [address] [place] [address] Alonso Walton MD [address] [place] [address] Cristo Foley DO [address] [place] [address] Phill Forbes MD [address] [place] [address] Biliary obstruction (Primary Dx); Epigastric [...] any time in the past 12 m [facility], were you homeless or living in a skilled nursing (including now)? No 01/04/2025 CAGE ASSESSMENT Answer [...] drink first t zeb in the morning (EYE-CONE CLASSIFIER TENDER) to steady your nerves or to get rid of a hangover? 0 12/05/2024 CAGE Questionnaire Score 0 025 Utilities Answer Date Recorded In the past 12 months has [employer], gas, oil, or water [employer] threatened to shut off services in your [...] Month) No 01/02/2025 8:00 PM EDT Marcelle Sampson, RN 6. Suicidal Behavior (Lifetime) No 01/02/2025 8:00 PM EDT Marcelle Sampson RN documented as of this encounter Medications at Time of Discharge aspirin 81 MG EC tablet Take 1 tablet by mouth daily. 30 tablet 12/26/2024 5 furosemide (Lasix) 40 MG tablet Take 1 [...] from the original note were not included. [id number] Rivaroxaban IMPORTANT WARNING: If you have atrial [...] doctor or pharmacist will give you the bone plant supervisor's patient information sheet (Medication Guide) when you begin treatment with rivaroxaban and each time you refill your prescription. Read the information carefully and ask your doctor or pharmacist if you have any questions. You can also visit the Food and Drug Administration (FDA) website (https://www.fda.gov/downloads/Drugs/DrugSafety/MDL658666.pdf) or the bone plant supervisor's website to obtain the Medication Guide. WHY [...] what herbal products you are taking, especially Gali's wort. ?? tell your doctor if you [...] be awakened, immediately call emergency services at 911. Symptoms of overdose may include the following: [...] of all of the prescription and nonprescription (qush-afn-rvytklb) medicines, vitamins, minerals, and dietary supplements you [...] or pharmacist about specific clinical use. The [place] [employer] represents that the information provided hereunder was formulated with a reasonable standard of care, and in conformity with professional standards in the field. The [place] [employer] makes no representations or warranties, express or implied, including, but not limited to, any implied warranty of merchantability and/or fitness for a particular purpose, with respect to such information and specifically disclaims all such warranties. Users are advised that decisions regarding drug therapy are complex medical decisions requiring the independent, informed decision of an appropriate health senior care specialist, and the information is provided for informational purposes only. The entire monograph for a drug should be reviewed for a thorough understanding of the drug's actions, uses and side effects. The [place] [employer] does not endorse or recommend the use of any drug.The information is not a substitute for medical care. AHFS?? Patient Medication Information?. ?? Copyright, 2023. The [place] [employer]??, [address], [address], [place], [place]. All Rights Reserved. Duplication for commercial use must be authorized by [facility]. Selected Revisions: October 09, 2022. AHFS?? Patient Medication Information?. ?? Copyright, 2024 * [facility] - Jennifer Olivera RN - 01/03/2025 2:45 PM EDT Images from the original note were not included. 1087 Oxycodone Oral Tablet, Immediate Release Brand Names: Oxaydo, Roxicodone What is this medicine? Oxycodone (ni-e-DSS-done) is an opioid pain reliever. It is used to treat moderate to severe pain. What should I tell my health care provider before I take this medicine? They need to know if you have any of these conditions: ?? Merritt's disease ?? Brain tumor or head injury [...] a special medication guide each time you pickling operator this medicine. ?? Overdosage: Taking too much [...] should report to your doctor or health senior care specialist as soon as possible: ?? allergic reactions [...] attention (report to your doctor or health senior care specialist if they continue or are bothersome): ?? constipation ?? dry mouth ?? itching ?? nausea, vomiting ?? upset stomach This list may not describe all possible side effects. Call your doctor for medical advice about side effects. You may report side effects to FDA at 2-250-YMY-8819. Where should I keep my medicine? This [...] location. To find a disposal location, visit [employer]/[place]. If you cannot take unused medicine to a proper location, you can mix the medicine with coffee grounds or aiden litter and dispose of in the normal trash. Your doctor may also give you a special disposal pouch for this medicine. You can also flush the medicine down the toilet. * Camille Andres[facility] - Jennifer Olivera RN - 01/03/2025 2:45 PM EDT Images from the original note were not included. [id number] Abdominal Pain Abdominal pain means pain in [...] All medicines you take, both prescription and yrsq-ybp-iyexazj ?? What vitamins, herbs, and other supplements [...] again, start lightly. Eat small amounts of szec-nw-avjcjt, low-fat foods. These include applesauce, toast, or [...] bed. Last Reviewed Date: 2023 00:00:00 ?? [id number] [employer] ([employer]). All rights reserved. This information is not intended as a substitute for professional medical care. Always follow your healthcare professional's instructions. * Discharge Summary - Jacinto Gomez Gaby - 01/03/2025 2:32 PM EDT Hospitalization Admit Date/Time: 01/01/2025 5:29 PM Admitting Attending: Phill Forbes Discharge Date: 01/03/25 Discharge Attending Physician: Phill Forbes MD PCP name and Address: Raimundo Chirinos MD [address] [place] [address] [address] / [place] [address] Referring provider name and address: No referring [...] Your Medications These medications were sent to [id number] - [place], [place] - [address] [address] [address] [facility] [address] [address] [place] [address] oxyCODONE 10 MG immediate release tablet rivaroxaban [...] in preparation for this discharge. Cosigned by Phill Forbes MD at 01/03/2025 6:44 PM EDT Associated attestation - Phill Forbes MD - 01/03/2025 6:44 PM EDT I saw and evaluated the patient with the medical/SCLEROSCOPE TESTER/PA student. I discussed the case with the medical/SCLEROSCOPE TESTER/PA student and agree with the findings and plan as documented. I personally performed the Examand Medical Decision Making. * H&P - Shoaib Ramachandran MD - 01/03/2025 11:27 AM EDTAssociated Order(s): Inpatient consult to Surgical Oncology Images from the original note were not included. [facility] Department of Surgery Division of Surgical Oncology History & Physical Note Reason for Consult: Pancreatic adenocarcinoma Requesting Service: Hospital Medicine Consult Date and Time: 01/03/2025 Inpatient consult to Surgical Oncology Consult performed by: Shoaib Ramachandran MD Consult ordered by: Phill Forbes MD Reason for consult: Pancreatic adenocarcinoma Subjective History of Present Illness: Chief Complaint: Pancreatic head adenocarcinoma Guanako Brock is a 64 y.o. male with PMHx significant for HFPEF (EF 45-60%), pAFib (not on anticoagulation), CAD s/p stents x8, and hypertension who presented to the [facility] on 12/25/2024 withconcerns for intractable [...] by mouth 4 times a day. Yes ProviderRobert MD lisinopril 2.5 MG tablet Take 1 [...] mouth daily. Do not crush orchew. Yes Robert Antonio MD senna-docusate sodium (Senokot-S) 8.6-50 MG tablet [...] Signed 12/04/2024 2:27 AM by Jeff Cramer, BRIDGE LEVERMAN -ECHO 05/19/2021: LVEF is variable d/t arrhythmia, but is visually estimated at 45 - 60%. Paroxysmal A-fib (CMS/HCC) Essential hypertension Tobacco use disorder Pancreatic mass Upper abdominal pain Moderate protein-calorie malnutrition (CMS/HCC) Malignant neoplasm of pancreas, unspecified location of malignancy (CMS/HCC) Spinal stenosis of lumbar region with neurogenic claudication Overview Signed 11/20/2021 1:56 PM by Sae Rubio Added automatically from request for surgery [id number] Dispo: Surgery will now sign off CODE STATUS: do not resuscitate This Consult, Assessment, and Plan has been discussed with Dr. Navarro, Attending Physician Jillian Ramachandran MD General Surgery, PGY-1 Pager: [phone] 2:52 PM 01/03/2025 [1] Past Medical History: Diagnosis Date A-fib (CMS/HCC) CHF (congestive heart failure) (CMS/HCC) Coronary artery disease Hypertension Lower back pain Numbness and tingling of both feet Spinal stenosis of lumbar region with neurogenic claudication 11/20/2021 Added automatically from request for surgery [id number] [2] Allergies Allergen Reactions Atorvastatin Hallucinations Happens [...] capsule 1,200 mg 1,200 mg Oral Daily Phill Forbes MD HYDROmorphone (Dilaudid) injection 0.5 mg 0.5 mg Intravenous q4h PRN Phill Forbes MD metoprolol succinate XL (Toprol-XL) 24 [...] 10 mg 10 mg Oral q4h PRN Phill Forbes MD 10 mg at01/03/25 0539 piperacillin-tazobactam (Zosyn) 4.5 g in sodium chloride 0.9% 100 mL IVPB (vial adapter required) 4.5 g Intravenous q6h Phill Forbes MD 36.7 mL/hr at 01/03/25 1018 4.5 g at 01/03/25 1018 polyethylene glycol (Miralax) packet 17 g 17 g Oral Daily Haider Jain DO 17 g at 01/02/25 0803 prochlorperazine (Compazine) tablet 5 mg 5 mg Oral q6h PRN Phill Forbes MD Or prochlorperazine (Compazine) suppository 25 mg 25 mg Rectal q12h PRN Phill Forbes MD Or prochlorperazine (Compazine) injection 2.5 mg 2.5 mg Intravenous q6h PRN Phill Forbes MD 2.5 mg at 01/02/25 1921 Or prochlorperazine (Compazine) injection 5 mg 5 mg Intramuscular q6h PRN Phill Forbes MD sodium chloride 0.9 % flush 10 mL 10 mL Intravenous q12h SusyHaider muhammad, DO 10 mL at 01/03/25 0446 [...] Note Guanako Brock 64 y.o. male CSN: [id number] Admission: 01/01/2025 5:29 PM Primary Problem: Biliary [...] Care Review Outcome: Ongoing, Progressing Flowsheets (Taken 01/03/2025 0730) Plan of Care Reviewed With: patient Goal: Patient-Specific Goal (Individualized) Outcome: Ongoing, Progressing Flowsheets (Taken 01/03/2025 0727) Patient/Family-Specific Goals (Include Timeframe): pt will remain free of falls throughout shift Individualized Care Needs: pain control Anxieties, Fears or Concerns: pain Goal: Absence of Hospital-Acquired Illness or Injury Outcome: Ongoing, Progressing Goal: Optimal Comfort and Wellbeing Outcome: Ongoing, Progressing Intervention: Provide Person-Centered Care Flowsheets (Taken 01/03/202530) Trust Relationship/Rapport: care explained emotional support provided questions answered Goal: Readiness for Transition of Care Outcome: Ongoing, Progressing Problem: Fall Injury Risk Goal: Absence of Fall and Fall-Related Injury Outcome: Ongoing, Progressing Intervention: Promote Injury-Free Environment Flowsheets (Taken 01/03/2025729) Safety Promotion/Fall Prevention: assistive device/personal items within reach clutter-free environment maintained fall prevention program maintained safety round/check completed nonskid shoes/slippers when out of bed toileting scheduled Problem: Pain Acute Goal: Optimal Pain Control and Function Outcome: Ongoing, Progressing Intervention: Prevent or Manage Pain Flowsheets (Taken 01/03/2025 07) Bowel Elimination Promotion: ambulation promoted Sleep/Rest Enhancement: consistent schedule promoted awakenings minimized noise level reduced regular sleep/rest pattern promoted relaxation techniques promoted Problem: Nausea and Vomiting Goal: Nausea and Vomiting Relief Outcome: Ongoing, Progressing Intervention: Prevent and Manage Nausea and Vomiting Flowsheets (Taken 01/03/2025729) Environmental Support: calm environment promoted rest periods encouraged Problem: Skin Injury Risk Increased Goal: Skin Health and Integrity Outcome: Ongoing, Progressing Intervention: Optimize Skin Protection Flowsheets (Taken 01/03/2025729) Activity Management: activity adjusted per tolerance activity encouraged Pressure Reduction Techniques: frequent weight shift encouraged * Consults - Beverly Mcbride RD - 01/03/2025 7:27 AM EDT Adult Nutrition Evaluation Note Guanako Brock 64 y.o. male CSN: [id number] Room/Bed 224-8/224-8 Nutrition evaluation type: assessment Reason for evaluation: nurse consult; [facility] 3 Hospital course: 64 yoM presents to [...] (Calculated): 23.49 Weight Evaluation: Normal (BMI 18.5-24.9) [place] Body Weight (kg): 67.2 Percent [place] Body Weight: 101 Estimated Needs: Metabolic Cart Study Results: Current Nutrition Intake: Diet Order: Adult Diet Diet Texture: Clear liquid Percent Meals Eaten (%): none to note Diet Experience and Nutrition History: Diet Education Provided: Will monitor Pertinent home medications: lasix, gabapentin, lisinopril, metoprolol succinate XL, ondansetron, potassium chloride, senna-docusate sodium Scientologist needs: Nutrition Focused Physical Exam: Unable to [...] [1] Past Medical History: Diagnosis Date A-fib ([facility]) CHF (congestive heart failure) ([facility]) Coronary artery disease Hypertension Lower back pain Numbness and tingling of both feet Spinal stenosis of lumbar region with neurogenic claudication 11/20/2021 Added automatically from request for surgery [id number] [2] Past Surgical History: Procedure Laterality Date [...] Guanako Brock Date of : 1960 Attending: Phill Forbes MD Date of Visit: January 02, [...] [2] Past Medical History: Diagnosis Date A-fib ([facility]) CHF (congestive heart failure) ([facility]) Coronary artery disease Hypertension Lower back pain Numbness and tingling of both feet Spinal stenosis of lumbar region with neurogenic claudication 11/20/2021 Added automatically from request for surgery [id number] [3] Past Surgical History: Procedure Laterality Date [...] hemodynamically stable. Labs notable for ALT 308, URT412, AlkPhos 297, Bili 8.8, lipase 474. CTAP [...] Jillian Aldrich MD PGY-5 Gastroenterology Fellow Pager: [phone] [1] Past Medical History: Diagnosis Date A-fib ([facility]) CHF (congestive heart failure) ([facility]) Coronary artery disease Hypertension Lower back pain Numbness and tingling of both feet Spinal stenosis of lumbar region with neurogenic claudication 11/20/2021 Added automatically from request for surgery [id number] [2] Past Surgical History: Procedure Laterality Date [...] [1] Past Medical History: Diagnosis Date A-fib ([facility]) CHF (congestive heart failure) ([facility]) Coronary artery disease Hypertension Lower back pain Numbness and tingling of both feet Spinal stenosis of lumbar region with neurogenic claudication 11/20/2021 Added automatically from request for surgery [id number] [2] Past Surgical History: Procedure Laterality Date [...] every two or three days Cosigned by Phill Forbes MD at 01/02/2025 5:14 PM EDT Associated attestation - Phill Forbes MD - 01/02/2025 5:14 PM EDT I saw and evaluated the patient. I discussed the case with the resident/fellow and agree with the findings and plan as documented. Covering for acute cholangitis (piperacillin-tazobactam) & consulted GI GI attempting ERCP to resolve biliary obstruction * ED Provider Notes - Pebbles Miguel MD - 01/01/2025 4:12 PM EDT Images from the original note were not included. - HPI Chief Complaint Patient presents with Abdominal Pain [facility] Note: Guanako Brock is a 64 y.o. [...] breath. History provided by: Patient and spouse top hat body maker used: No MAIN ED NOTE//Pebbles Miguel MD: I assumed full responsibility for this patient after transfer to Main ED from [facility]. I personally performed my own history, ROS, and physical. I agree with the above [facility] documentation with the following additions/exceptions: 64-year-old male [...] 030 CBC and Differential Morning draw Acknowledged SUSY, RE01/02/25 030 Comprehensive metabolic panel Morning draw Acknowledged SUSY, RE01/02/25 030 Magnesium, Plasma Morning draw Acknowledged SUSY, RE01/02/25 030 Vital Signs Every 4 hours Placed in And Linked Group Acknowledged SUSY, RE01/02/25 030 Pulse Oximetry Every 4 hours Placed in And Linked Group Acknowledged SUSY, RE01/02/25 030 Do Not Give Nicotine Replacement Until discontinued Acknowledged SUSY, RE01/02/25 030 DNR / DNI Continuous Acknowledged SUSY, 01/02/25 030 Adult diet Diet texture: Clear liquid Diet effective now Acknowledged SUSY, RE01/02/25 030 Reason for no VTE Prophylaxis - hospital admission - medications Once Completed SUSY, RELUMA 01/02/25 030 Admit to inpatient Once Acknowledged SUSY, REIDIS 01/02/25 0300 Mobility Orders Until discontinued Acknowledged SUSY, 01/02/25 030 Notify physician (specify parameters) Until discontinued Acknowledged SUSY, RE01/02/25 030 Insert peripheral IV Once Placed in And Linked Group Acknowledged SUSY, 01/02/25 030 Saline lock IV Once Placed in And Linked Group Acknowledged SUSY, RE01/02/25 0139 Consult to Hospital Medicine Once Specialty: Internal Medicine Provider: (Not yet assigned) Completed GUI REESE 01/01/25 1837 STAT Canceled PEBBLES MIGUEL 01/01/25 1715 Lipase STAT Final result KENDALL SHELTON 01/01/25 1715 CBC w/diff STAT Final result KENDALL SHELTON 01/01/25 1715 Bilirubin, direct STAT Final result KENDALL SHELTON 01/01/25 1715 CMP STAT Final result KENDALL SHELTON 01/01/25 1715 Insert peripheral IV Once Acknowledged KENDALL SHELTON 01/01/[address] Abdomen Pelvis w IV Contrast Once [...] disposition [EM] ED Course User Index [EM] Pebbles Miguel MD Clinical Impressions as of 01/02/25 1036 Epigastric pain Biliary obstruction Social Determinates of Health Risks (including Economic Stability, Education and level of understanding, Healthcare access and quality and concerning social factors): Lives far away Ultimately, this patient was was [facility] (Signed Out) Patient care assumed by oncoming provider, Hugh, at shift change, tentative plan at the time of sign-out was pending CT ED Prescriptions None Disposition Admit Admitting/Attending Physician: PHILL FORBES [[id number]] Provider Care Team: MONIKA MELISSA 13 [[id number]] [...] 11/20/2021 Added automatically from request for surgery [id number] [2] Past Surgical History: Procedure Laterality Date [...] Atorvastatin Hallucinations Happens with brand name only Pebbles Miguel MD Resident 01/02/25 1036 Cosigned by [...] NOTE Transferring provider: Lamont Gaming attending: Isabelle NATARAJAN Time: 0 I received sign-out and accepted care of [...] disposition [EM] ED Course User Index [EM] Pebbles Miguel MD Clinical Impressions as of 01/02/25 [...] 8:30 AM EDT Office Visit [facility] Multidisciplinary Oncology Clinic [address] [place] [phone] Nito Balderas MD [address] [place] [address] Scheduled Orders Name Type Priority Associated Diagnoses [...] - 4.5 mg/dL 01/03/2025 1:59 AM EDT [facility] Blood Venous blood specimen / Unknown Venipuncture / Unknown 01/03/2025 1:04 AM EDT 01/03/2025 1:31 AM EDT us Phill Forbes MD LAB BLOOD ORDERABLES Final Resul t Performing Organization Address City/[facility]/ZIP Co de Phone Number [facility] [address] [place] [address] * Magnesium, Plasma (01/03/2025 1:04 AM EDT) Pathologist [facility] Magnesium, Plasma 1.9 1.9 - 2.4 mg/dL 01/03/2025 1:59 AM EDT [facility] Blood Venous blood specimen / Unknown Venipuncture / Unknown 01/03/2025 1:04 AM EDT 01/03/2025 1:31 AM EDT us Phill Forbes MD LAB BLOOD ORDERABLES Final Resul t Performing Organization Address City/[facility]/ZIP Co de Phone Number [facility] [address] [place] [address] * (ABNORMAL) Comprehensive metabolic panel (01/03/2025 1:04 AM EDT) [facility] Glucose, Plasma 115(H) 74 - 99 mg/dL 01/03/2025 1:59 AM EDT [facility] BUN, Plasma 10 8 - 23 mg/dL 01/03/2025 1:59 AM EDT [facility] Creatinine, Plasma 0.98 0.70 - 1.20 mg/dL 01/03/2025 1:59 AM EDT [facility] BUN/Creatinine Ratio 10 01/03/2025 1:59 AM EDT [facility] Sodium, Plasma 140 136 - 145 mmol/L 01/03/2025 1:59 AM EDT [facility] Potassium, Plasma 4.1 3.6 - 4.9 mmol/L 01/03/2025 1:59 AM EDT [facility] Chloride, Plasma 103 97 - 107 mmol/L 01/03/2025 1:59 AM EDT [facility] CO2, Plasma 23 22 - 29 mmol/L 01/03/2025 1:59 AM EDT [facility] Anion Gap 14 6 - 16 mmol/L 01/03/2025 1:59 AM EDT [facility] Total Calcium, Plasma 8.6(L) 8.9 - 10.2 mg/dL 01/03/2025 1:59 AM EDT [facility] Total Protein 5.7(L) 6.3 - 7.9 g/dL 01/03/2025 1:59 AM EDT [facility] Albumin, Plasma 3.3(L) 3.5 - 5.2 g/dL 01/03/2025 1:59 AM EDT [facility] AST, Plasma 78(H) 10 - 50 U/L 01/03/2025 1:59 AM EDT [facility] ALT, Plasma 219(H) 10 - 50 U/L 01/03/2025 1:59 AM EDT [facility] Alkaline Phosphatase, Plasma 278(H) 40 - 115 U/L 01/03/2025 1:59 AM EDT [facility] Total Bilirubin, Plasma 6.3(H) 0.2 - 1.1 mg/dL 01/03/2025 1:59 AM EDT [facility] eGFRcr 86.1 mL/min/1.7 3m*2 01/03/2025 1:59 AM EDT [facility] Comment:Reported eGFRcr in m L/min/1.73m2 is based the CKD-EPI 2020 equation that does not use a race coefficient. Blood Venous blood specimen / Unknown Venipuncture / Unknown 01/03/2025 1:04 AM EDT 01/03/2025 1:31 AM EDT Phill Forbes MD LAB BLOOD ORDERABLES Final Resul t [facility] [address] [place] [address] * (ABNORMAL) CBC and Differential (01/03/2025 1:04 AM EDT) [facility] WBC Count 9.38 3.70 - 10.30 10*3/uL LAB HEMATOLOGY METHOD 01/03/2025 1:39 AM EDT [facility] RBC Count 5.65 4.60 - 6.10 10*6/uL LAB HEMATOLOGY METHOD 01/03/2025 1:39 AM EDT [facility] HGB 16.2 13.7 - 17.5 g/dL LAB HEMATOLOGY METHOD 01/03/2025 1:39 AM EDT [facility] HCT 49.9 40.0 - 51.0 % LAB HEMATOLOGY METHOD 01/03/2025 1:39 AM EDT [facility] Platelet Count 230 155 - 369 10*3/uL LAB HEMATOLOGY METHOD 01/03/2025 1:39 AM EDT [facility] MCV 88 79 - 98 fL LAB HEMATOLOGY METHOD 01/03/2025 1:39 AM EDT [facility] MCH 28.7 26.0 - 32.0 pg LAB HEMATOLOGY METHOD 01/03/2025 1:39 AM EDT [facility] MCHC 32.5 30.7 - 35.5 g/dL LAB HEMATOLOGY METHOD 01/03/2025 1:39 AM EDT [facility] RDW 19.6(H) 11.5 - 14.5 % LAB HEMATOLOGY METHOD 01/03/2025 1:39 AM EDT [facility] MPV 10.8 8.8 - 12.5 fL LAB HEMATOLOGY METHOD 01/03/2025 1:39 AM EDT [facility] nRBC 0.0 <=0.0 per 100 WBCs LAB HEMATOLOGY METHOD 01/03/2025 1:39 AM EDT [facility] Differential Type Automated LAB HEMATOLOGY METHOD 01/03/2025 1:39 AM EDT [facility] Neutrophils % 83 % LAB HEMATOLOGY METHOD 01/03/2025 1:39 AM EDT [facility] Lymphocytes % 11 % LAB HEMATOLOGY METHOD 01/03/2025 1:39 AM EDT [facility] Monocytes % 5 % LAB HEMATOLOGY METHOD 01/03/2025 1:39 AM EDT [facility] Eosinophils % 1 % LAB HEMATOLOGY METHOD 01/03/2025 1:39 AM EDT [facility] Basophils % 0 % LAB HEMATOLOGY METHOD 01/03/2025 1:39 AM EDT [facility] Immature Granulocytes % 0 % LAB HEMATOLOGY METHOD 01/03/2025 1:39 AM EDT [facility] Neutrophils Absolute 7.83(H) 1.60 - 6.10 10*3/uL LAB HEMATOLOGY METHOD 01/03/2025 1:39 AM EDT [facility] Lymphocytes Absolute 1.00(L) 1.20 - 3.90 10*3/uL LAB HEMATOLOGY METHOD 01/03/2025 1:39 AM EDT [facility] Monocytes Absolute 0.42 0.30 - 0.90 10*3/uL LAB HEMATOLOGY METHOD 01/03/2025 1:39 AM EDT [facility] Eosinophils Absolute 0.06 0.00 - 0.50 10*3/uL LAB HEMATOLOGY METHOD 01/03/2025 1:39 AM EDT [facility] Basophils Absolute 0.04 0.00 - 0.10 10*3/uL LAB HEMATOLOGY METHOD 01/03/2025 1:39 AM EDT [facility] Immature Granulocytes Absolute 0.03 0.00 - 0.06 10*3/uL LAB HEMATOLOGY METHOD 01/03/2025 1:39 AM EDT [facility] Blood Venous blood specimen / Unknown Venipuncture / Unknown 01/03/2025 1:04 AM EDT 01/03/2025 1:31 AM EDT Narrative [facility] - 01/03/2025 1:39 AM EDT Therapeutic decision making should be based on absolute values, rather than percentages. us Phill Forbes MD LAB BLOOD ORDERABLES Final Resul t [facility] [address] [place] [address] * ERCP (01/02/2025 5:33 PM EDT) Anatomical [...] administered medications. Staff Staff Role Vasiliy Rodriguez, KENNETH Endo Nurse Guanako Collins, Beverly Camargo CRNA, Iglesia Kumar CRNA Endo Power Tool Repair Technician Shahbaz [place] MD Anesthesiologist Zoe [place] MD Proceduralist Kyler Mo MD Proceduralist Jillian Quevedo Endo Power Tool Repair Technician Preprocedure A history and physical has been [...] User STENT BILIARY 3.3 X 70MM - [id number] Bile Duct Implanted INTERFACE, SUPPLY USAGE IN STENT ZIMMON 5FR X 3CM - [id number] Pancreas Implanted INTERFACE, SUPPLY USAGE IN Findings Prior to ERCP, diagnostic EGD was performed with standard gastroscope. This showed some mild gastritis in the stomach. The major papilla was [place]. The common bile duct and pancreatic duct [...] placed successfully in the pancreatic duct. us Phill Forbes MD GI PROCEDURE ORDERABLES Final Re sult * [place] ERC (01/02/2025 5:32 PM EDT) Narrative IMAGING - 01/02/2025 6:33 PM EDT Images were obtained for surgical purposes. See Jillian Aldrich's surgical note in the patient's chart for the findings. us Phill Forbes MD IMG FLUOROSCOPY PROCEDURES Final Result Performing Organization Address City/State/[facility] Co de Phone Number IMAGING * Potassium (01/02/2025 4:12 AM EDT) Potassium, Plasma 3.8 3.6 - 4.9 mmol/L 01/02/2025 4:58 AM EDT [facility] Blood Venous blood specimen / Unknown Venipuncture / Unknown 01/02/2025 4:12 AM EDT 01/02/2025 4:35 AM EDT us Phill Forbes MD LAB BLOOD ORDERABLES Final Resul t [facility] [address] [place] [address] * (ABNORMAL) CBC w/diff (01/01/2025 8:45 PM EDT) WBC Count 7.95 3.70 - 10.30 10*3/uL LAB HEMATOLOGY METHOD 01/01/2025 8:54 PM EDT [facility] RBC Count 5.25 4.60 - 6.10 10*6/uL LAB HEMATOLOGY METHOD 01/01/2025 8:54 PM EDT [facility] HGB 15.6 13.7 - 17.5 g/dL LAB HEMATOLOGY METHOD 01/01/2025 8:54 PM EDT [facility] HCT 45.2 40.0 - 51.0 % LAB HEMATOLOGY METHOD 01/01/2025 8:54 PM EDT [facility] Platelet Count 218 155 - 369 10*3/uL LAB HEMATOLOGY METHOD 01/01/2025 8:54 PM EDT [facility] MCV 86 79 - 98 fL LAB HEMATOLOGY METHOD 01/01/2025 8:54 PM EDT [facility] MCH 29.7 26.0 - 32.0 pg LAB HEMATOLOGY METHOD 01/01/2025 8:54 PM EDT [facility] MCHC 34.5 30.7 - 35.5 g/dL LAB HEMATOLOGY METHOD 01/01/2025 8:54 PM EDT [facility] RDW 19.9(H) 11.5 - 14.5 % LAB HEMATOLOGY METHOD 01/01/2025 8:54 PM EDT [facility] MPV 11.4 8.8 - 12.5 fL LAB HEMATOLOGY METHOD 01/01/2025 8:54 PM EDT [facility] nRBC 0.0 <=0.0 per 100 WBCs LAB HEMATOLOGY METHOD 01/01/2025 8:54 PM EDT [facility] Differential Type Automated LAB HEMATOLOGY METHOD 01/01/2025 8:54 PM EDT [facility] Neutrophils % 71 % LAB HEMATOLOGY METHOD 01/01/2025 8:54 PM EDT [facility] Lymphocytes % 19 % LAB HEMATOLOGY METHOD 01/01/2025 8:54 PM EDT [facility] Monocytes % 7 % LAB HEMATOLOGY METHOD 01/01/2025 8:54 PM EDT [facility] Eosinophils % 2 % LAB HEMATOLOGY METHOD 01/01/2025 8:54 PM EDT [facility] Basophils % 1 % LAB HEMATOLOGY METHOD 01/01/2025 8:54 PM EDT [facility] Immature Granulocytes % 0 % LAB HEMATOLOGY METHOD 01/01/2025 8:54 PM EDT [facility] Neutrophils Absolute 5.63 1.60 - 6.10 10*3/uL LAB HEMATOLOGY METHOD 01/01/2025 8:54 PM EDT [facility] Lymphocytes Absolute 1.54 1.20 - 3.90 10*3/uL LAB HEMATOLOGY METHOD 01/01/2025 8:54 PM EDT [facility] Monocytes Absolute 0.53 0.30 - 0.90 10*3/uL LAB HEMATOLOGY METHOD 01/01/2025 8:54 PM EDT [facility] Eosinophils Absolute 0.18 0.00 - 0.50 10*3/uL LAB HEMATOLOGY METHOD 01/01/2025 8:54 PM EDT [facility] Basophils Absolute 0.05 0.00 - 0.10 10*3/uL LAB HEMATOLOGY METHOD 01/01/2025 8:54 PM EDT [facility] Immature Granulocytes Absolute 0.02 0.00 - 0.06 10*3/uL LAB HEMATOLOGY METHOD 01/01/2025 8:54 PM EDT [facility] Blood Venous blood specimen / Unknown Venipuncture / Unknown 01/01/2025 8:45 PM EDT 01/01/2025 8:48 PM EDT [facility] - 01/01/2025 8:54 PM EDT Therapeutic decision making should be based on absolute values, rather than percentages. us Kendall Shelton MD LAB BLOOD ORDERABLES Final Result [facility] [address] [place] [address] * (ABNORMAL) Lipase (01/01/2025 8:45 PM EDT) Lipase, Plasma 474(H) 19 - 63 U/L 01/01/2025 9:20 PM EDT [facility] Blood Venous blood specimen / Unknown Venipuncture / Unknown 01/01/2025 8:45 PM EDT 01/01/2025 8:48 PM EDT us Kendall Shelton MD LAB BLOOD ORDERABLES Final Result [facility] [address] [place] [address] * CT Abdomen Pelvis w IV Contrast [...] Beverly Guzmán MD on 01/02/2025 12:21 AM Kendall Shelton MD IMG CT PROCEDURES Final Res ult * (ABNORMAL) Bilirubin, direct (01/01/2025 5:24 PM EDT) Conjugated Bilirubin, Plasma 3.7(H) <=0.3 mg/dL 01/01/2025 6:32 PM EDT [facility] Comment:Hemolyzed, result ma y be falsely decreased. Blood Venous blood specimen / Unknown Venipuncture / Unknown 01/01/2025 5:24 PM EDT 01/01/2025 5:42 PM EDT Kendall Shelton MD LAB BLOOD ORDERABLES Final Result [facility] [address] [place] [address] * (ABNORMAL) CMP (01/01/2025 5:24 PM EDT) Glucose, Plasma 128(H) 74 - 99 mg/dL 01/01/2025 6:32 PM EDT [facility] BUN, Plasma 11 8 - 23 mg/dL 01/01/2025 6:32 PM EDT [facility] Creatinine, Plasma 0.83 0.70 - 1.20 mg/dL 01/01/2025 6:32 PM EDT [facility] BUN/Creatinine Ratio 13 01/01/2025 6:32 PM EDT [facility] Sodium, Plasma 136 136 - 145 mmol/L 01/01/2025 6:32 PM EDT [facility] Potassium, Plasma 5.9(H) 3.6 - 4.9 mmol/L 01/01/2025 6:32 PM EDT [facility] Comment:Hemolyzed, result ma y be falsely increased. Chloride, Plasma 104 97 - 107 mmol/L 01/01/2025 6:32 PM EDT [facility] CO2, Plasma 18(L) 22 - 29 mmol/L 01/01/2025 6:32 PM EDT [facility] Anion Gap 14 6 - 16 mmol/L 01/01/2025 6:32 PM EDT [facility] Total Calcium, Plasma 9.2 8.9 - 10.2 mg/dL 01/01/2025 6:32 PM EDT [facility] Total Protein 6.6 6.3 - 7.9 g/dL 01/01/2025 6:32 PM EDT [facility] Albumin, Plasma 3.5 3.5 - 5.2 g/dL 01/01/2025 6:32 PM EDT [facility] AST, Plasma 210(H) 10 - 50 U/L 01/01/2025 6:32 PM EDT [facility] Comment:Hemolyzed, result ma y be falsely increased. ALT, Plasma 308(H) 10 - 50 U/L 01/01/2025 6:32 PM EDT [facility] Comment:Hemolyzed, result ma y be falsely increased or decreased. Alkaline Phosphatase, Plasma 297(H) 40 - 115 U/L 01/01/2025 6:32 PM EDT [facility] Comment:Hemolyzed, result ma y be falsely decreased. Total Bilirubin, Plasma 8.8(H) 0.2 - 1.1 mg/dL 01/01/2025 6:32 PM EDT [facility] eGFRcr 97.7 mL/min/1.7 3m*2 01/01/2025 6:32 PM EDT [facility] Comment:Reported eGFRcr in m L/min/1.73m2 is based the CKD-EPI 2020 equation that does not use a race coefficient. Blood Venous blood specimen / Unknown Venipuncture / Unknown 01/01/2025 5:24 PM EDT 01/01/2025 5:42 PM EDT us Kendall Shelton MD LAB BLOOD ORDERABLES Final Result [facility] [address] [place] [address] documented in this encounter Visit Diagnoses Diagnosis [...] Until Tue01/03/25 at 1754, Routine, nausea, vomiting ondansetron (Zofran) [...] Until Tue01/03/25 at 1754, Routine, nausea, vomiting Given 01/02/2025 [...] dose on Tue01/02/25 at 0900, Until Discontinued 08 (Given - Provider: Donya Montes RN) 0834 (Given - Provider: Jennifer Olivera RN) enoxaparin (Lovenox) syringe 40 mg 40 [...] 1 dose, On Tue01/01/25 at 2000, Routine 204 (Given - Provider: Lashay Fontaine, KENNETH) iohexol (OMNIPaque) 300 MG/ML injection 100 mL (COMPLETED) 100 mL, Intravenous, Once in imaging, 1 dose, Starting on Tue01/01/25 at 1731, Until Tue01/01/25 at 1851, Routine, Imaging Protocol Orders 185 (Given - Provider: Radha Michelle) lactated Ringer's infusion 1,000 mL (COMPLETED) 1,000 mL, Intravenous, Once, 1 dose, On Tue01/01/25 at 1720, STAT 1753 (New Bag - Provider: Morenita Marte RN)2044 (Stopped - Provider: Lashay Fontaine, KENNETH) lisinopril tablet 2.5 mg (CANCELED) 2.5 mg, Oral, Daily, First dose on Tue01/02/25 at 0900, Until Discontinued, Routine 08 (Given - Provider: Donya Montes RN) metoprolol [...] 1720, STAT 1753 (Given - Provider: Morenita Marte, KENNETH) piperacillin-tazobacta m (Zosyn) 4.5 g in sodium chloride 0.9% 100 mL IVPB (vial adapter required) 4.5 g, Intravenous, Every 6 hours, First dose on Tue01/02/25 at 1105, Until Discontinued, Routine 1118 (New Bag - Provider: Hortencia Mckeon RN)1426 (Stopped - Provider: Hortencia Mckeon RN)1833 (New Bag - Provider: Errol Dickson, KENNETH)2234 (New Bag - Provider: Sammy Sampson, KENNETH) 0539 (New Bag - Provider: Sammy Sampson, KENNETH)1018 (New Bag - Provider: Jennifer Olivera, KENNETH)1705 (Canceled Entry - Provider: Automatic Discharge Provider [...] 0305, Until Discontinued, Routine 0316 (Return to Cabinet - Provider: Lashay Fontaine RN)1435 (Given - Provider: Hortencia Mckeon RN) 0446 (Given - Provider: Sammy Sampson RN)1415 (Given - Provider: Jennifer Olivera RN) sodium chloride 0.9 % flush 10 mL(Linked Group 2) 10 mL, Intravenous, Every 12 hours, First dose on Tue01/02/25 at 1625, Until Discontinued, Routine, Holding - Preprocedure 1824 (Given - Provider: Errol Dickson, KENNETH) 0446 (Given - Provider: Sammy Sampson RN)1625 [...] PRN, Starting on Tue01/02/25 at 1825, Until Ana Maria 01/03/25 at 1754, Routine, moderate pain, severe pain [...] RN) 0835 (See Alternative - Provider: Jennifer Olivera, KENNETH) prochlorperazine (Compazine) suppository 25 mg(Linked Group 4) 25 mg, Rectal, Every 12 hours PRN, Starting on Tue01/02/25 at 1855, Until [place] 01/03/25 at 1754, Routine, nausea, vomiting 1921 (See Alternative - Provider: Sammy Sampson RN) 0835 (See Alternative - Provider: Jennifer Olivera, KENNETH) prochlorperazine (Compazine) tablet 5 mg(Linked Group 4) [...] Until Tue01/03/25 at 1754, Routine, vomiting, nausea Or ondansetron [...] documented as of this encounter Care Teams [employer] Technical Lead Senior Developer Relationship Specialty Start Date End Date Raimundo Chirinos MD [facility] [address] [place] [address] PCP - General 11/18/21 Moiz Mcnally MD [id number] [place] [id number] Surgeon Neurosurgery 11/18/21 Bridgett Gonzales APRN [address] [place] [address] Nurse Practitioner Neurosurgery 01/07/22 Ynes Rocha LPN [facility] TCM Nurse 12/27/24 Terrance Corral Community Health Worker 12/27/24 documented as of this encounter
--- OUTSIDE RECORDS SUMMARY | 2025-01-02 16:33 | XMS_ITS | Encounter Summary ---
Author Organization [facility] Address [address] [place] [address] Care Team Providers Care Tower Observer Name Role Phone Raimundo Chirinos MD Primary Care Provider [phone] Moiz Mcnally MD Unavailable [phone] Bridgett Gonzales AOC PLANS INTELLIGENCE OFFICER CHIEF Unavailable [phone] Ynes Rocha SPLIT AND DRUM ROOM SUPERVISOR Unavailable Unavailab Terrance Hdez Unavailable Unavailable Reason for Visit * Auth/Cert (Routine) Specialty Diagnoses / Procedures Referred By Pola black Referred To Contact Diagnoses Biliary obstruction Ciro Ruelas MD [address] [place] [address] Phone: tel: fax: [facility] A Emergency Department [address] [place] [address] Phone: tel: Referral ID Status Reason Start Date Expiration Date Visits Re quested Visits Authorized [id number] 1 1 Encounter Details Date Type Department Care Team (Late st Contact Info) Description 01/02/2025 4:33 PM EDT Anesthesia Event [facility] H Endoscopy [address] [place] [address] Shahbaz [place] MD [address] [place] [address] Beverly Esquivel CRNA [address] [place] [address] Anesthesia Record Procedure Summary Procedure [...] in a group home (including now)? No 01/04/2025 CAGE ASSESSMENT Answer [...] drink first t zeb in the morning (EYE-PRESS CUTTER) to steady your nerves or to get rid of a hangover? 0 12/05/2024 CAGE Questionnaire Score 0 025 Utilities Answer Date Recorded In the past 12 months has th e[employer], gas, oil, or water [employer] threatened to shut off services in your [...] and Staff Patient location during procedure: OR SHAPING MACHINE TENDER: Beverly Esquivel CRNA Performed: VANDANA Patient Condition [...] (CMS/HCC) /Renal (+) ELDER (acute kidney injury) (CMS/[facility]) ALLERGIES Allergies[1] NPO STATUS [...] 01/01/2025 ABG Lab Results Component Value Date UVD0FIX 24 12/11/2021 LACTATE 1.2 12/11/2021 Lab Results Component Value Date PH 7.26 (L) 12/11/2021 PCO2 53 (H) 12/11/2021 PO2 274 12/11/2021 Y7SPOIFT 100.0 (H) 12/11/2021 BASEEXC -4.4 (L) 12/11/2021 [...] There is norecent study available for direct keev-xz-vuej comparison. PFTs No results found for: MYY3MVQ , AJH5VWKU , NPO4VHU , FVCPRED BP Readings from Last 5 [...] is no recent study available for direct ttrh-aa-sjti comparison. [1] Allergies Allergen Reactions Atorvastatin Hallucinations Happens with brand name only [2] Past Medical History: Diagnosis Date A-fib ([facility]) CHF (congestive heart failure) ([facility]) Coronary artery disease Hypertension Lower back pain Numbness and tingling of both feet Spinal stenosis of lumbar region with neurogenic claudication 11/20/2021 Added automatically from request for surgery [id number] [3] aspirin, 81 mg, Oral, Daily gabapentin, [...] EDT Office Visit [facility] [address] [place] [address] Nito Balderas MD [address] [place] [address] documented as of this encounter Goals Goal Patient Goal Type Associated Problems Recent Progress Patient-Stated? Author Autogenerat ed Goal Care Plan Autogenerated Problem No Sourav Garrido RN documented as of this encounter Procedures Procedure Name Priority Date/Time Associated Diagnosis Comments PB ANESTHESIA PLACEHOLDER Routine 01/02/2025 4:38 PM EDT AZ AN ELECTIVE ENDOTRACHEAL AIRWAY Routine 01/02/2025 4:38 PM EDT documented in this encounter Results * AZ AN ELECTIVE ENDOTRACHEAL AIRWAY, PB ANESTHESIA PLACEHOLDER (01/02/2025 4:38 PM EDT) Narrative Bevelry Esquivel CRNA - 01/02/2025 4:38 PM EDT Beverly Esquivel CRNA 01/02/2025 4:48 PM Airway Date/Time: 01/02/2025 4:38 PM Reason: elective Airway not difficult General Information and Staff Patient location during procedure: OR SHAPING MACHINE TENDER: Beverly Esquivel CRNA Performed: VANDANA Patient Condition [...] documented as of this encounter Care Teams Tower Observer Relationship Specialty Start Date End Date Raimundo Chirinos MD [address] [place] [address] [address] [place] [address] PCP - General 11/18/21 Moiz Mcnally MD [address] [place] [address] Surgeon Neurosurgery 11/18/21 Bridgett Gonzales APRN [address] [place] [address] Nurse Practitioner Neurosurgery 01/07/22 Ynes Rocha LPN [facility] TCM Nurse 12/27/24 Terrance Corral Community Health Worker 12/27/24 documented as of this encounter
--- OUTSIDE RECORDS SUMMARY | 2025-01-16 08:50 | XMS_ITS | Encounter Summary ---
Author Organization [facility] Address [address] [place] [address] Care Team Providers Care Lean Facilitator Name Role Phone Raimundo Chirinos MD Primary Care Provider [phone] Moiz Mcnally MD Unavailable [phone] Bridgett Gonzales KEY CARRIER Unavailable [phone] Purvi Foy RN Unavailable Unavailab Ynes Lozano UNIVERSAL BANKER Unavailable Unavailab Terrance Hdez Unavailable Unavailable Reason for Visit * Reason Comments Link Encounter Details Date Type Department Care Team (Late st Contact Info) Description 12/26/2024 Patient Outreach POPULATION HEALTH [address], [address] [place] [address] Purvi Foy, RN CH-VASCULAR & [...] time in the past 12 m [facility], were you homeless or living in [...] drink first t zeb in the morning (EYE-NEWSPAPER STUFFER) to steady your nerves or to get [...] Description 01/24/2025 8:30 AM EDT Office Visit [facility] Multidisciplinary Oncology Clinic [address] [place] [address] Nito Balderas MD [address] [place] [address] documented as of this encounter Visit Diagnoses Not on filedocumented in this encounter Additional Health Concerns Assessment Noted Time A fall risk assessment has been complete d for the patient 03/10/2022 9:47 AM EDT A Body Mass Index follow-up plan has been documented for the patient 12/26/2024 4:50 PM EDT documented as of this encounter Care Teams Lean Facilitator Relationship Specialty Start Date End Date Raimundo Chirinos MD [address] [place] [address] [address] [place] [address] PCP - General 11/18/21 Moiz Mcnally MD [address] [place] [address] Surgeon Neurosurgery 11/18/21 Bridgett Gonzales APRN [address] [place] [address] Nurse Practitioner Neurosurgery 01/07/22 Purvi Foy, RN CH-VASCULAR & INTERVENTIONAL RADIOLOGY Registered Nurse 12/26/24 12/26/24 Ynes Rocha LPN [facility] TCM Nurse 12/27/24 Terrance Corral Community Health Worker 12/27/24 documented as of this encounter
--- OUTSIDE RECORDS SUMMARY | 2025-01-16 08:50 | XMS_ITS | Encounter Summary ---
Author Organization [facility] Address [address] [place] [address] Care Team Providers Care Director Of Casework Name Role Phone Raimundo Chirinos MD Primary Care Provider [phone] Moiz Mcnally MD Unavailable [phone] Bridgett Gonzales COMB FIXER Unavailable [phone] Ynes Rocha WEBSPHERE COMMERCE ARCHITECT Unavailable Unavailab Terrance Hdez Unavailable Unavailable Reason for Visit * Reason Comments Community Resources Encounter Details Date Type Department Care Team (Late st Contact Info) Description 12/27/2024 Patient Outreach POPULATION HEALTH [address] [facility], [address] [place] [address] Terrance Corral Community Resources Social [...] any time in the past 12 m [facility], were you homeless or living [...] first t zeb in the morning (EYE-SUPERVISOR RICE MILLING) to steady your nerves or to get rid of a hangover? 0 12/05/2024 CAGE Questionnaire Score 0 025 Utilities Answer Date Recorded In the past 12 months has th e [employer], gas, oil, or water company threatened to [...] 12/27/2024 Urgent or Non-Urgent Referral: Non Urgent Engineering Surveyor: No Preferred Language: German Engineering Surveyor ID: Outreach 1: 12/27/24 - left vm [...] Description 01/24/2025 8:30 AM EDT Office Visit [facility] Multidisciplinary Oncology Clinic [address] [place] [address] Nito Balderas MD [address] [place] [address] documented as of this encounter Visit Diagnoses Not on filedocumented in this encounter Additional Health Concerns Assessment Noted Time A fall risk assessment has been complete d for the patient 03/10/2022 9:47 AM EDT A Body Mass Index follow-up plan has been documented for the patient 12/26/2024 4:50 PM EDT documented as of this encounter Care Teams Director Of Casework Relationship Specialty Start Date End Date Raimundo Chirinos MD [address] [place] [address] PCP - General 11/18/21 Moiz Mcnally MD [address] [place] [address] Surgeon Neurosurgery 11/18/21 Bridgett Gonzales APRN [address] [place] [address] Nurse Practitioner Neurosurgery 01/07/22 Ynes Rocha LPN [facility] TCM Nurse 12/27/24 Terrance Corral Community Health Worker 12/27/24 documented as of this encounter
--- OUTSIDE RECORDS SUMMARY | 2025-01-16 08:50 | XMS_ITS | Encounter Summary ---
Author Organization [facility] Address [address] [place] [address] Care Team Providers Care Telegraphic Typewriter Installer Name Role Phone Raimundo Chirinos MD Primary Care Provider Moiz Mcnally MD Unavailable [phone] Bridgett Gonzales DUSTLESS OPERATOR Unavailable [phone] Purvi Foy RN Unavailable Unavailab le Encounter [...] time in the past 12 m [facility], were you homeless or living in a nursing home (including now)? No 12/27/2024 CAGE ASSESSMENT [...] drink first t zeb in the morning (EYE-FUNERAL PROFESSIONAL) to steady your nerves or to get rid of a hangover? 0 12/05/2024 CAGE Questionnaire Score 0 025 Utilities Answer Date Recorded In the past 12 months has th e [employer], gas, oil, or water company threatened to [...] Description 01/24/2025 8:30 AM EDT Office Visit [facility] Multidisciplinary Oncology Clinic [address] [place] [phone] Nito Balderas MD [address] [place] [phone] documented as of this encounter Visit Diagnoses Not on filedocumented in this encounter Additional Health Concerns Assessment Noted Time A fall risk assessment has been complete d for the patient 03/10/2022 9:47 AM EDT A Body Mass Index follow-up plan has been documented for the patient 12/26/2024 4:50 PM EDT documented as of this encounter Care Teams Telegraphic Typewriter Installer Relationship Specialty Start Date End Date Raimundo Chirinos MD [address] [facility] [address] [place], [place] [phone] PCP - General 11/18/21 Moiz Mcnally MD [address] [facility] [place] [address] Surgeon Neurosurgery 11/18/21 Bridgett Gonzales APRN [address] [place] [address] Nurse Practitioner Neurosurgery 01/07/22 Purvi Foy, RN CH-VASCULAR & INTERVENTIONAL RADIOLOGY Registered Nurse 12/26/24 12/26/24 documented as of this encounter
--- OUTSIDE RECORDS SUMMARY | 2025-01-16 08:50 | XMS_ITS | Encounter Summary ---
Author Organization [facility] Address [address] [place] [address] Care Team Providers Care Offset Lithographic Press Setter Name Role Phone Raimundo Chirinos MD Primary Care Provider [phone] Moiz Mcnally MD Unavailable [phone] Bridgett Gonzales DYE AUTOMATION OPERATOR Unavailable Encounter Details Date Type Department Care [...] living in a fci (including now)? No 12/06/2024 CAGE ASSESSMENT Answer [...] drink first t zeb in the morning (EYE-PROFESSOR COMPUTER SCIENCE) to steady your nerves or to get rid of a hangover? 0 12/05/2024 CAGE Questionnaire Score 0 025 Utilities Answer Date Recorded In the past 12 months has th e [employer] gas, oil, or water company threatened to [...] 8:30 AM EDT Office Visit [facility] Multidisciplinary Oncology Clinic [address] [place] [address] Nito Balderas MD [address] [place] [address] documented as of this encounter Visit Diagnoses Not on filedocumented in this encounter Additional Health Concerns Assessment Noted Time A fall risk assessment has been complete d for the patient 03/10/2022 9:47 AM EDT A Body Mass Index follow-up plan has been documented for the patient 12/26/2024 4:50 PM EDT documented as of this encounter Care Teams Offset Lithographic Press Setter Relationship Specialty Start Date End Date Raimundo Chirinos MD [address] [facility] [address] [place] [address] PCP - General 11/18/21 Moiz Mcnally MD [address] [place] [address] Surgeon Neurosurgery 11/18/21 Bridgett Gonzales APRN [address] [place] [address] Nurse Practitioner Neurosurgery 01/07/22 documented as of this encounter
--- OUTSIDE RECORDS SUMMARY | 2025-01-16 08:50 | XMS_ITS | Encounter Summary ---
Author Organization [facility] Address [address] [place] [address] Care Team Providers Care Sales Engagement Executive Name Role Phone Raimundo Chirinos MD Primary Care Provider [phone] Moiz Mcnally MD Unavailable [phone] Bridgett Gonzales GUEST ADVISOR Unavailable [phone] Ynes Rocha LPN Unavailable Unavailab Terrance Hdez Unavailable Unavailable Reason for Visit * Reason Comments TCM Call Encounter Details Date Type Department Care Team (Late st Contact Info) Description 12/27/2024 Patient Outreach POPULATION [facility] [address] [facility], [address] [place] [address] Ynes Rocha LPN [facility] TCM Call Social History [...] in a senior care (including now)? No 01/04/2025 CAGE ASSESSMENT Answer [...] drink first t zeb in the morning (EYE-SPEECH SCIENTIST) to steady your nerves or to get rid of a hangover? 0 12/05/2024 CAGE Questionnaire Score 0 025 Utilities Answer Date Recorded In the past 12 months has th e [employer], gas, oil, or water company threatened [...] Miscellaneous Notes * Progress Notes - Ynes Rocha LPN - 12/27/2024 10:59 AM EDT Admit Date: 12/25/2024 Discharge Date: 12/26/2024 Hospital Service: [facility] Discharge Diagnosis: Malignant neoplasm of pancreas, unspecified [...] and patient states that he did not supervisor picking crew his medications yet, and that he was notified the pharmacy had only received his zofran medication. SDOH needs were updated with patient and patient would like to discuss needs for foodand utilities. Patient did not voice any other questions or concerns during TCM call. Action: CHW referral placed for sdoh needs. [facility] pharmacy in [place] contacted to see if medications were ready for patient to supervisor picking crew. Spoke with Alessia and she states medications are ready for patient to supervisor picking crew. 12:02pm Patient called and notified discharge medications are ready for supervisor picking crew. Medication changes: Per AVS Start: aspirin 81 [...] 01/24/2025 8:30 AM EDT Office Visit [facility] Multidisciplinary Oncology Clinic [address] [place] [address] Nito Balderas MD [address] [place] [address] documented as of this encounter Goals Goal Patient Goal Type Associated Problems Recent Progress Patient-Stated? Author Autogenerat ed Goal Care Plan Autogenerated Problem No Sourav Garrido RN documented as of this encounter Visit Diagnoses Not on filedocumented in this encounter Additional Health Concerns Active Problems Noted Date Diagnosed Date Autogenerated Problem 01/02/2025 Assessment Noted Time A fall risk assessment has been complete d for the patient 03/10/2022 9:47 AM EDT A Body Mass Index follow-up plan has been documented for the patient 12/26/2024 4:50 PM EDT documented as of this encounter Care Teams Sales Engagement Executive Relationship Specialty Start Date End Date Raimundo Chirinos MD [address] [facility] [address] [place] [address] PCP - General 11/18/21 Moiz Mcnally MD [address] [place] [address] Surgeon Neurosurgery 11/18/21 Bridgett Gonzales APRN [address] [place] [address] Nurse Practitioner Neurosurgery 01/07/22 Ynes Rocha LPN [facility] TCM Nurse 12/27/24 Terrance Corral Community Health Worker 12/27/24 documented as of this encounter
--- OUTSIDE RECORDS SUMMARY | 2025-01-16 08:51 | XMS_ITS ---
Author Organization [facility] Address [address] [place] [address] Care Team Providers Care Button Inspector Name Role Phone Raimundo Chirinos MD Primary Care Provider [phone] Moiz Mcnally MD Unavailable [phone] Bridgett Gonzales MANAGER CONTINUOUS IMPROVEMENT Unavailable [phone] Ynes Rocha LPN Unavailable Unavailab Terrance Hdez Unavailable Unavailable Active Problems * This document contains information received from the source organization and may not represent a complete record from that organization. Problem Noted Date Diagnosed Date Biliary obstruction 01/02/2025 Malignant neoplasm of pancre as, unspecified location [...] (11/20/2021): Added automatically from request for surgery [id number] Current Treatment and Therapy Plans No current plan information found. Past Treatment and Therapy Plans No past plan information found. Lifetime Dose Tracking * Chemical Lifetime Dose Automatic Entry Manual Entr y Fluoro Time 4.402 minutes 4.402 minutes 0 minutes Air Kerma 90.687 mGy 90.687 mGy 0 mGy
--- OUTSIDE RECORDS SUMMARY | 2025-01-16 08:51 | XMS_ITS | Encounter Summary ---
Author Organization Healthcare Address [address] [place] [address] Care Team Providers Care Psychology Physician Name Role Phone Raimundo Chirinos MD Primary Care Provider [phone] Moiz Mcnally MD Unavailable [phone] Bridgett Gonzales WELL SERVICE FLOORPERSON Unavailable [phone] Ynes Rocha CHANNEL CEMENTER OUTSOLE MACHINE Unavailable Unavailab Terrance Hdez Unavailable Unavailable Reason for Visit * Reason Comments Community Resources Encounter Details Date Type Department Care Team (Late st Contact Info) Description 12/31/2024 Patient Outreach POP[facility] [address] [facility], [address] [place] [address] Terrance Corral Community Resources Social [...] any time in the past 12 m [facility], were you homeless or living in a usp (including now)? No 01/04/2025 CAGE ASSESSMENT Answer [...] drink first t zeb in the morning (EYE-CAT BREEDER) to steady your nerves or to get rid of a hangover? 0 12/05/2024 CAGE Questionnaire Score 0 025 Utilities Answer Date Recorded In the past 12 months has th e [employer], gas, oil, or water company threatened to [...] Risk Indicated 01/02/2025 8:00 PM EDT Sammy Macedo, KENNETH * Question Answer Date of Assessment Author 1. Wish to be (Past 1 Month) No 01/02/2025 8:00 PM EDT Marcelle Sampson, KENNETH 2. Non-Specific Active Suicidal Thoughts (Past 1 Month) No 01/02/2025 8:00 PM EDT Marcelle Sampson, KENNETH 6. Suicidal Behavior (Lifetime) No 01/02/2025 8:00 PM EDT Marcelle Sampson RN documented as of this encounter Miscellaneous Notes * Progress Notes - Terrance Corral - 12/31/2024 11:39 AM EDT [facility] Initial Encounter Note 12/31/2024 Urgent or Non-Urgent Referral: Non Urgent Architectural Intern: No Preferred Language: Macedonian Architectural Intern ID: Outreach 1: 12/27/24 - left vm [...] he believes he requested [facility] referral too soon and is hesitant to accept help at this time, but asked if he could call [facility] back at a later date. [facility] offered contact information for a local pantry and community [facility] [place]; pt declined at this time. Pt stated [...] EDT Office Visit [facility] [address] [place] [address] Nito Balderas MD [address] [place] [address] documented as of this encounter Goals Goal Patient Goal Type Associated Problems Recent Progress Patient-Stated? Author Autogenerat ed Goal Care Plan Autogenerated Problem No Sourav Garrido, RN documented as of this encounter Visit [...] documented as of this encounter Care Teams Psychology Physician Relationship Specialty Start Date End Date Raimundo Chirinos MD [address] [facility] [address] [place] [address] PCP - General 11/18/21 Moiz Mcnally MD [address] [facility] [place] [address] Surgeon Neurosurgery 11/18/21 Bridgett Gonzales APRN [address] [place] [address] Nurse Practitioner Neurosurgery 01/07/22 Ynes Rocha LPN [facility] TCM Nurse 12/27/24 Terrance Corral Community Health Worker 12/27/24 documented as of this encounter
--- OUTSIDE RECORDS SUMMARY | 2025-01-16 08:51 | XMS_ITS ---
Author Organization [facility] Address [address] [place] [address] Care Team Providers Care Kiln Placer Name Role Phone Raimundo Chirinos MD Primary Care Provider [phone] Moiz Mcnally MD Unavailable [phone] Bridgett Gonzales GEOTHERMAL PLANT MANAGER Unavailable Ynes Rocha LPN Unavailable Unavailab Terrance Hdez Unavailable Unavailable Transitional Care Management Status:Active (Active) Start date:01/04/2025 Enrollment date:01/04/2025 Enrollment reason:Identified using hospital discharge data Overview This episode type is for outpatient care managers enrolling patients in the [facility] Transitional Care Management program. Case Team Name Relationship Phone Ynes Rocha LPN(Responsible Staff) TIMUR Addison se Continued Care and Services Coordination
--- OUTSIDE RECORDS SUMMARY | 2025-01-16 08:51 | XMS_ITS | Clinical Summary ---
Author Organization [facility] Address [address] [place] [address] Care Team Providers Care Stoneworker Name Role Phone Raimundo Chirinos MD Primary Care Provider [phone] Moiz Mcnally MD Unavailable [phone] Bridgett Gonzales HATCH TENDER Unavailable [phone] Ynes Rocha LPN Unavailable Unavailab Terrance Hdez [...] tablet by mouth daily as needed. Active naloxone (Narcan) 4 mg/0.1 mL nasal spray 1. Give 1 spray in nostril for no/slow breathing or cannot wake after opioid use 2. Call 911 3. Repeat in other nostril if symptoms continue 1 each 025 Active metoprolol succinate XL (Toprol-XL) 25 MG 24 hr tablet Take 1 tablet by mouth daily. Do not crush or chew. 30 tablet 025 2024 Active aspirin 81 MG EC tablet Take 1 tablet by mouth daily. 30 tablet 025 2024 Active potassium chloride CR (Klor-Con M20) 20 MEQ ER tablet Take 1 tablet by mouth daily. Do not crush or chew. Active lisinopril 2.5 MG tablet Take 1 tablet by mouth daily. Active oxyCODONE (Roxicodone) 10 MG immediate release tablet Take 1 tablet by mouth every 4 hours as needed for moderate pain or severe pain. 24 tablet Active rivaroxaban (Xarelto) 20 MG tablet Take 1 tablet by mouth 1 time each day with dinner. Take with food. 30 tablet 1 Active Additional Information Patient not taking.Reason: Cost, Reported on 01/04/2025 apixaban (Eliquis) 5 MG tablet Take 1 tablet by mouth 2 times a day. Active gabapentin (Neurontin) 300 MG capsule Take [...] hours as needed for nausea. 12 tablet 025 2024 Discontinued(S top Taking at Discharge) potassium chloride CR (Klor-Con M20) 20 MEQ ER tablet Take 1 tablet by mouth daily. Do not crush or chew. 2024 Discontinued oxyCODONE (Roxicodone) 5 MG immediate release tablet Take 1 tablet by mouth every 6 hours as needed for severe pain (Breakthrough pain) for up to 7 days. 28 tablet 025 2024 Discontinued(S top Taking at Discharge) Active Problems Problem Noted Date Diagnosed Date Biliary obstruction [...] (11/20/2021): Added automatically from request for surgery [id number] Encounters * This document contains information received from the source organization and may not represent a complete record from that organization. Date Type Department Care Team Description 01/11/2025 Patient Outreach [address], [address] [place] [address] Terrance Corral Follow-up 01/09/2025 Patient Outreach [place] [address], [address] [place] [address] Terrance Corral Follow-up 01/07/2025 Telephone [facility] [address] [place] [phone] Ntio Balderas MD [facility] 01/04/2025 Patient Outreach [place] [address], [address] [place] [address] Terrance Corral Follow-up 01/04/2025 Patient Outreach [place] [address], [address] [address] Ynes Rocha LPN TCM Call 01/02/2025 4:33 PM EDT Anesthesia Event [facility] Endoscopy [address] [place] [address] Shahbaz Colorado MD Faircloth, Jennifer H, VANDANA 01/02/2025 Travel 01/01/2025 5:29 PM EDT - 01/03/2025 3:53 PM EDT Hospital Encounter [facility] Inpatient [address] [place] [phone] Alonso Walton MD Chapman, Steven B, DO Myers, Kurt A, MD Biliary obstruction (Primary Dx); Epigastric pain; Pancreatic mass Discharge Disposition: Home or Self Care 01/01/2025 Travel 12/31/2024 Patient Outreach [place] [address], [address] [place] [address] Terrance Corral [facility] 12/27/2024 Patient Outreach [place] [address], [address] [place] [address] Terrance Corral [facility] 12/27/2024 Patient Outreach [place] [address], [address] [place] [address] Ynes Rocha LPN TCM Call 12/26/2024 Patient Outreach POPULATION [facility] [address], [address] [place] [address] Purvi Foy, RN Link 12/26/2024 Travel 12/25/2024 7:53 AM EDT - 12/26/2024 5:05 PM EDT Hospital Encounter [facility] A Emergency Department [address] [place] [phone] Danny Lucio MD Oo, MD Bigg Chamberlain, Iesha Galvan MD Malignant neoplasm of pancreas, unspecified location of malignancy (CMS/HCC) (Primary Dx); Acute pancreatitis, unspecified complication status, unspecified pancreatitis type; Pancreatic mass; Epigastric pain; Nausea and vomiting, unspecified vomiting type; Malignant neoplasm of body of pancreas (CMS/HCC); Elevated lipase Discharge Disposition: Left Against Medical Advice 12/25/2024 Travel 12/24/2024 Orders Only [facility] Medicine Specialties [address] [place] [phone] Darian Jaramillo MD Adenocarcinoma of head of pancreas (CMS/HCC) (Primary Dx); Mass of head of pancreas 12/20/2024 7:53 AM EDT Anesthesia Event [facility] H Endoscopy [address] [place] [address] Sae Barriga MD Hackett, Michael D, MUD PLANT OPERATOR 12/20/2024 7:36 AM EDT - 12/20/2024 11:59 PM EDT Hospital Encounter [facility] H Radiology [address] [place] [address] History of ERCP Discharge Disposition: Home or Self Care 12/20/2024 6:31 AM EDT - 12/20/2024 7:35 AM EDT Hospital Encounter [facility] H Endoscopy [address] [place] [address] Darian Jaramillo MD Acute pancreatitis, unspecified complication status, unspecified pancreatitis type (Primary Dx); Mass of head of pancreas Discharge Disposition: Home or Self Care 12/20/2024 Travel 12/12/2024 Telephone [facility] H Endoscopy [address] [place] [address] Airam Man Scheduling 12/11/2024 Telephone [facility] H Endoscopy [address] [place] [address] Airam Man Scheduling 12/06/2024 Travel 12/05/2024 7:20 PM EDT - 12/07/2024 6:30 PM EDT Hospital Encounter [facility] S Inpatient [address] [place] [address] Padmini Fitzpatrick MD Miguel, Mitchell A, MD Upper abdominal pain (Primary Dx); Mass of head of pancreas Discharge Disposition: Home or Self Care 12/05/2024 Travel 12/04/2024 Travel 12/03/2024 Travel 12/03/2024 Orders Only External Location [address] [place] [address] Thomas Hood PA 12/03/2024 Orders Only External Location [address] [place] [phone] Thomas Hood PA from Last 3 Months [...] drink first t zeb in the morning (EYE-PLATFORM CONSULTANT) to steady your nerves or to get rid of a hangover? 0 12/05/2024 CAGE Questionnaire Score 0 025 Utilities Answer Date Recorded In the past 12 months has th e [employer], gas, oil, or water company threatened to [...] Mass Index 23.49 01/02/2025 11:00 PM EDT Plan of Treatment Upcoming Encounters Date Type Department Care Team (Late st Contact Info) Description 01/24/2025 8:30 AM EDT Office Visit [facility] [address] [place] [phone] Nito Balderas MD [address] [place] [address] Health Maintenance Due Date Last Done Comments [facility]-Depression Screening 1960 [facility]-Medicare Annual Wellness (AWV) 1960 [facility]-/Child/Adol SDOH Screenings 1960 [id number] Vaccine (#1) 01/22/1965 [facility]-DTaP,Tdap,and Td Vaccine s [...] on patient's age to complete this topic Goals Goal Patient Goal Type Associated Problems Recent Progress Patient-Stated? Author Autogenerat ed Goal Care Plan Autogenerated Problem No Sourav Garrido, KENNETH Medical Devices Implanted Type Area Graffiti Cleaner Device Identifier Shelf Expiration Date Model / Serial / Lot Darling Brito [id number] Domitila [id number] Dg - [id number] 1 - [id number] Implanted:Qty: 1 on 12/11/2021 by Moiz Mcnally MD at [facility] Spine Lumbar [employer] [id number] 09/16/2024 [id number] / [id number] Matrix Fibergraft Bg Lg 12.5cc - [id number] Implanted:Qty: 1 on 12/11/2021 by Moiz Mcnally MD at [facility] Spine Lumbar [employer] Spine [employer] [id number] 02/06/2024 [id number] / / [id number] Screw 5.5mm Viper Ti Fen Crtcl Polyax 7mm X 55mm - [id number] Implanted:Qty: 4 on 12/11/2021 by Moiz Mcnally MD at [facility] Spine Lumbar De[employer]uy Spine [employer] [id number] / / Screw 5.5mm Viper Ti Fen Crtcl Polyax 8mm X 50mm - [id number] Implanted:Qty: 4 on 12/11/2021 by Moiz Mcnally MD at [facility] Spine Lumbar [employer] Sp[employer] [id number] / / Pre-Lordosed Juventino W/ Line 95mm - [id number] Implanted:Qty: 2 on 12/11/2021 by Moiz Mcnally MD at [facility] Spine Lumbar [employer]uy Spine [employer] [id number] / / Single Inner Setscrew - [id number] Implanted:Qty: 8 on 12/11/2021 by Moiz Mcnally MD at [facility] Spine Lumbar [employer] [id number] / / Stent Biliary 3.3 X 70mm - [id number] Implanted:Qty: 1 on 01/02/2025 by Vasiliy Rodriguez, KENNETH at [facility] Bile Duct [id number] 09/06/2027 [id number] / / [id number] Stent Zimmon 5fr X 3cm - [id number] Implanted:Qty: 1 on 01/02/2025 by Vasiliy Rodriguez, KENNETH at [facility] Pancreas [facility] Inc-[id number] 10/25/2027 [id number] / / [id number] Procedures Procedure Name Priority Date/Time Associated Diagnosis Comments PHOSPHORUS, PLASMA Routine 01/03/2025 1: 04 AM EDT MAGNESIUM, PLASMA Routine 01/03/2025 1:0 4 AM EDT COMPREHENSIVE METABOLIC PANEL, PLASMA Routine 01/03/2025 1:04 AM EDT CBC WITH AUTO DIFFERENTIAL Routine 01/03/2025 1:04 AM EDT ERCP Routine 01/02/2025 5:33 PM EDT Biliary obstruction FL ERC Routine 01/02/2025 5:32 PM EDT Biliary obstruction PB ANESTHESIA PLACEHOLDER Routine 01/02/2025 4:38 PM EDT NE AN ELECTIVE ENDOTRACHEAL AIRWAY Routine 01/02/2025 4:38 PM EDT POTASSIUM, PLASMA Routine 01/02/2025 4:1 2 AM EDT CBC WITH AUTO DIFFERENTIAL STAT 01/01/2025 8:45 PM EDT LIPASE, PLASMA STAT 01/01/2025 8:[address] ABDOMEN PELVIS W IV CONTRAST STAT 01/01/2025 6:57 PM EDT CONJUGATED BILIRUBIN, PLASMA STAT 01/01/2025 5:24 PM EDT COMPREHENSIVE METABOLIC PANEL, PLASMA STAT 01/01/2025 5:24 PM EDT ECHO, ADULT TRANSTHORACIC COMPLETE STAT 12/26/2024 9:55 [...] ANESTHESIA PLACEHOLDER Routine 12/20/2024 8:00 AM EDT NE AN ELECTIVE ENDOTRACHEAL AIRWAY Routine 12/20/2024 8:00 [...] EDT from Last 3 Months Results * (ABNORMAL) CBC and Differential (01/03/2025 1:04 AM EDT) Only the most recent of8 resultswithin the time period is included. WBC Count 9.38 3.70 - 10.30 10*3/uL LAB HEMATOLOGY METHOD 01/03/2025 1:39 AM EDT [facility] RBC Count 5.65 4.60 - 6.10 10*6/uL LAB HEMATOLOGY METHOD 01/03/2025 1:39 AM EDT [facility] HGB 16.2 13.7 - 17.5 g/dL LAB HEMATOLOGY METHOD 01/03/2025 1:39 AM EDT [facility] HCT 49.9 40.0 - 51.0 % LAB HEMATOLOGY METHOD 01/03/2025 1:39 AM EDT [facility] Platelet Count 230 155 - 369 10*3/uL LAB HEMATOLOGY METHOD 01/03/2025 1:39 AM EDT [facility] MCV 88 79 - 98 fL LAB HEMATOLOGY METHOD 01/03/2025 1:39 AM EDT [facility] MCH 28.7 26.0 - 32.0 pg LAB HEMATOLOGY METHOD 01/03/2025 1:39 AM EDT [facility] MCHC 32.5 30.7 - 35.5 g/dL LAB HEMATOLOGY METHOD 01/03/2025 1:39 AM EDT [facility] RDW 19.6(H) 11.5 - 14.5 % LAB HEMATOLOGY METHOD 01/03/2025 1:39 AM EDT [facility] MPV 10.8 8.8 - 12.5 fL LAB HEMATOLOGY METHOD 01/03/2025 1:39 AM EDT [facility] nRBC 0.0 <=0.0 per 100 WBCs LAB HEMATOLOGY METHOD 01/03/2025 1:39 AM EDT [facility] Differential Type Automated LAB HEMATOLOGY METHOD 01/03/2025 1:39 AM EDT [facility] Neutrophils % 83 % LAB HEMATOLOGY METHOD 01/03/2025 1:39 AM EDT [facility] Lymphocytes % 11 % LAB HEMATOLOGY METHOD 01/03/2025 1:39 AM EDT [facility] Monocytes % 5 % LAB HEMATOLOGY METHOD 01/03/2025 1:39 AM EDT [facility] Eosinophils % 1 % LAB HEMATOLOGY METHOD 01/03/2025 1:39 AM EDT [facility] Basophils % 0 % LAB HEMATOLOGY METHOD 01/03/2025 1:39 AM EDT [facility] Immature Granulocytes % 0 % LAB HEMATOLOGY METHOD 01/03/2025 1:39 AM EDT [facility] Neutrophils Absolute 7.83(H) 1.60 - 6.10 10*3/uL LAB HEMATOLOGY METHOD 01/03/2025 1:39 AM EDT [facility] Lymphocytes Absolute 1.00(L) 1.20 - 3.90 10*3/uL LAB HEMATOLOGY METHOD 01/03/2025 1:39 AM EDT [facility] Monocytes Absolute 0.42 0.30 - 0.90 10*3/uL LAB HEMATOLOGY METHOD 01/03/2025 1:39 AM EDT [facility] Eosinophils Absolute 0.06 0.00 - 0.50 10*3/uL LAB HEMATOLOGY METHOD 01/03/2025 1:39 AM EDT [facility] Basophils Absolute 0.04 0.00 - 0.10 10*3/uL LAB HEMATOLOGY METHOD 01/03/2025 1:39 AM EDT [facility] Immature Granulocytes Absolute 0.03 0.00 - 0.06 10*3/uL LAB HEMATOLOGY METHOD 01/03/2025 1:39 AM EDT [facility] Blood Venous blood specimen / Unknown Venipuncture / Unknown 01/03/2025 1:04 AM EDT 01/03/2025 1:31 AM EDT Narrative [facility] - 01/03/2025 1:39 AM EDT Therapeutic decision making should be based on absolute values, rather than percentages. us Ciro Ruelas MD LAB BLOOD ORDERABLES Final Resul t Performing Organization Address City/[facility] Co de Phone Number [facility] [address] [place] [address] * Phosphorus (01/03/2025 1:04 AM EDT) Only the most recent of3 resultswithin the time period is included. Phosphorus, Plasma 3.7 2.5 - 4.5 mg/dL 01/03/2025 1:59 AM EDT [facility] Blood Venous blood specimen / Unknown Venipuncture / Unknown 01/03/2025 1:04 AM EDT 01/03/2025 1:31 AM EDT us Ciro Ruelas MD LAB BLOOD ORDERABLES Final Resul t Performing Organization Address [facility] [place] [address] * Magnesium, Plasma (01/03/2025 1:04 AM EDT) Only the most recent of4 resultswithin the time period is included. Magnesium, Plasma 1.9 1.9 - 2.4 mg/dL 01/03/2025 1:59 AM EDT [facility] Blood Venous blood specimen / Unknown Venipuncture / Unknown 01/03/2025 1:04 AM EDT 01/03/2025 1:31 AM EDT us Ciro Ruelas MD LAB BLOOD ORDERABLES Final Resul t Performing Organization Address City/[facility] Co de Phone Number [facility] [address] [place] [address] * (ABNORMAL) Comprehensive metabolic panel (01/03/2025 1:04 AM EDT) Only the most recent of7 resultswithin the time period is included. Glucose, Plasma 115(H) 74 - 99 mg/dL 01/03/2025 1:59 AM EDT [facility] BUN, Plasma 10 8 - 23 mg/dL 01/03/2025 1:59 AM EDT [facility] Creatinine, Plasma 0.98 0.70 - 1.20 mg/dL 01/03/2025 1:59 AM EDT [facility] BUN/Creatinine Ratio 10 01/03/2025 1:59 AM EDT [facility] Sodium, Plasma 140 136 - 145 mmol/L 01/03/2025 1:59 AM EDT [facility] Potassium, Plasma 4.1 3.6 - 4.9 mmol/L 01/03/2025 1:59 AM EDT [facility] Chloride, Plasma 103 97 - 107 mmol/L 01/03/2025 1:59 AM EDT [facility] CO2, Plasma 23 22 - 29 mmol/L 01/03/2025 1:59 AM EDT [facility] Anion Gap 14 6 - 16 mmol/L 01/03/2025 1:59 AM EDT [facility] Total Calcium, Plasma 8.6(L) 8.9 - 10.2 mg/dL 01/03/2025 1:59 AM EDT [facility] Total Protein 5.7(L) 6.3 - 7.9 g/dL 01/03/2025 1:59 AM EDT [facility] Albumin, Plasma 3.3(L) 3.5 - 5.2 g/dL 01/03/2025 1:59 AM EDT [facility] AST, Plasma 78(H) 10 - 50 U/L 01/03/2025 1:59 AM EDT [facility] ALT, Plasma 219(H) 10 - 50 U/L 01/03/2025 1:59 AM EDT [facility] Alkaline Phosphatase, Plasma 278(H) 40 - 115 U/L 01/03/2025 1:59 AM EDT [facility] Total Bilirubin, Plasma 6.3(H) 0.2 - 1.1 mg/dL 01/03/2025 1:59 AM EDT [facility] eGFRcr 86.1 mL/min/1.7 3m*2 01/03/2025 1:59 AM EDT [facility] Comment:Reported eGFRcr in m L/min/1.73m2 is based the CKD-EPI 2020 equation that does not use a race coefficient. Blood Venous blood specimen / Unknown Venipuncture / Unknown 01/03/2025 1:04 AM EDT 01/03/2025 1:31 AM EDT us Ciro Ruelas MD LAB BLOOD ORDERABLES Final Resul t [facility] [address] [place] [address] * ERCP (01/02/2025 5:33 PM EDT) Anatomical [...] Beverly Camargo CRNA, Iglesia Kumar CRNA [facility] Shahbaz Colorado MD Anesthesiologist Zoe Colorado MD Proceduralist Kyler Mo MD Proceduralist Jillian Quevedo [facility] Preprocedure A history and physical has been [...] User STENT BILIARY 3.3 X 70MM - [id number] Bile Duct Implanted INTERFACE, SUPPLY USAGE IN STENT ZIMMON 5FR X 3CM - [id number] Pancreas Implanted INTERFACE, SUPPLY USAGE IN Findings Prior to ERCP, diagnostic EGD was performed with standard gastroscope. This showed some mild gastritis in the stomach. The major papilla was port gamble. The common bile duct and pancreatic duct [...] successfully in the pancreatic duct. us Ciro Ruelas MD GI PROCEDURE ORDERABLES Final Re sult * FL ERC (01/02/2025 5:32 PM EDT) Only the most recent of2 resultswithin the time period is included. Narrative IMAGING - 01/02/2025 6:33 PM EDT Images were obtained for surgical purposes. See Jillian Aldrich's surgical note in the patient's chart for the findings. us Ciro Ruelas MD IMG FLUOROSCOPY PROCEDURES Final Result IMAGING * NE AN ELECTIVE ENDOTRACHEAL AIRWAY, PB ANESTHESIA PLACEHOLDER (01/02/2025 4:38 PM EDT) Narrative Beverly Esquivel CRNA - 01/02/2025 4:38 PM EDT Beverly Esquivel CRNA 01/02/2025 4:48 PM Airway Date/Time: 01/02/2025 4:38 PM Reason: elective Airway not difficult General Information and Staff Patient location during procedure: OR MUD PLANT OPERATOR: Beverly Esquivel CRNA Performed: VANDANA Patient [...] Beverly Esquivel CRNA ANESTHESIA ORDERABLES Final Result * Potassium (01/02/2025 4:12 AM EDT) Potassium, Plasma 3.8 3.6 - 4.9 mmol/L 01/02/2025 4:58 AM EDT [facility] Blood Venous blood specimen / Unknown Venipuncture / Unknown 01/02/2025 4:12 AM EDT 01/02/2025 4:35 AM EDT us Ciro Ruelas MD LAB BLOOD ORDERABLES Final Resul t Performing Organization Address City/[facility]/ZIP Co de Phone Number [facility] [address] [place] [address] * (ABNORMAL) Lipase (01/01/2025 8:45 PM EDT) Only the most recent of4 resultswithin the time period is included. Lipase, Plasma 474(H) 19 - 63 U/L 01/01/2025 9:20 PM EDT [facility] Blood Venous blood specimen / Unknown Venipuncture / Unknown 01/01/2025 8:45 PM EDT 01/01/2025 8:48 PM EDT us John Shelton MD LAB BLOOD ORDERABLES Final Result Performing Organization Address [facility] de Phone Number [facility] [address] [place] [address] * CT Abdomen Pelvis w IV Contrast (01/01/2025 6:57 PM EDT) Only the most recent of2 resultswithin the time period is included. Anatomical Region Laterality Modality Abdomen, Pelvis Computed [...] Beverly Guzmán MD on 01/02/2025 12:21 AM John Shelton MD IMG CT PROCEDURES Final Res ult * (ABNORMAL) Bilirubin, direct (01/01/2025 5:24 PM EDT) Pathologist [facility] Conjugated Bilirubin, Plasma 3.7(H) <=0.3 mg/dL 01/01/2025 6:32 PM EDT [facility] Comment:Hemolyzed, result ma y be falsely decreased. Blood Venous blood specimen / Unknown Venipuncture / Unknown 01/01/2025 5:24 PM EDT 01/01/2025 5:42 PM EDT John Shelton MD LAB BLOOD ORDERABLES Final Result [facility] [address] [place] [address] * ECHO, ADULT TRANSTHORACIC COMPLETE (12/26/2024 9:55 AM EDT) Pathologist [facility] BSA 1.81 m2 ALLEN ISCV Height 170.0 [...] 115 mL ALLEN ISCV EF(MOD-sp4) 17 % LALEN ISCV LV EDV(MOD-2ch) 171 mL ALLEN ISCV [...] Root Diam 31 mm ALLEN ISCV PA NE(ACCEL) 30.6 mmHg ALLEN ISCV LVLs ap2 8.8 [...] is no recent study available for direct [id number] comparison. Left Ventricle The left ventricle is [...] is no recent study available for direct [id number] comparison. Result Gael Abreu MD CV ECHO PROCEDURES Final Resul t * (ABNORMAL) N-Terminal Probnp (12/26/2024 2:50 AM EDT) Only the most recent of2 resultswithin the time period is included. N-Terminal, PROBNP, Plasma 4,363(H) 0 - 899 pg/mL 12/26/2024 3:46 AM EDT [facility] Blood Venous blood specimen / Unknown Venipuncture / Unknown 12/26/2024 2:50 AM EDT 12/26/2024 3:09 AM EDT Result Gael Abreu MD LAB BLOOD ORDERABLES Final Res ult Performing Organization Address City/[facility] Co de Phone Number [facility] [address] [place] [address] * Iron & Total Iron Binding Capacity, Plasma (Includes Transferrin) (12/26/2024 2:50 AM EDT) Iron, Plasma 56 50 - 170 ug/dL 12/26/2024 3:46 AM EDT [facility] Transferrin, Plasma 214 200 - 360 mg/dL 12/26/2024 3:46 AM EDT [facility] Total Iron Binding Capacity, Plasma 268 240 - 450 ug/mL 12/26/2024 3:46 AM EDT [facility] Transferrin Saturation 21 14 - 50 % 12/26/2024 3:46 AM EDT [facility] Blood Venous blood specimen / Unknown Venipuncture / Unknown 12/26/2024 2:50 AM EDT 12/26/2024 3:09 AM EDT Result Gael Abreu MD LAB BLOOD ORDERABLES Final Res ult [facility] [address] [place] [address] * (ABNORMAL) Cancer antigen 19-9 (12/26/2024 2:50 AM EDT) Only the most recent of2 resultswithin the time period is included. CA 19.9 248(H) <36 U/mL 12/26/2024 3:56 AM EDT [facility] Blood Venous blood specimen / Unknown Venipuncture / Unknown 12/26/2024 2:50 AM EDT 12/26/2024 3:17 AM EDT Narrative [facility] - 12/26/2024 3:56 AM EDT Performed by [employer]iza electrochemiluminescent immunoassay. Results obtained with different test methods or kits cannot be used interchangeably. us Aramis Abreu MD LAB BLOOD ORDERABLES Final Res ult Performing Organization Address City/[facility]/ZIP Co de Phone Number [facility] [address] [place] [address] * (ABNORMAL) APTT (12/26/2024 2:50 AM EDT) aPTT 36(H) 25 - 35 sec 12/26/2024 3:24 AM EDT [facility] Blood Venous blood specimen / Unknown Venipuncture / Unknown 12/26/2024 2:50 AM EDT 12/26/2024 3:09 AM EDT us Aramis Abreu MD LAB BLOOD ORDERABLES Final Res ult [facility] [address] [place] [address] * (ABNORMAL) PT/INR (12/26/2024 2:50 AM EDT) Only the most recent of3 resultswithin the time period is included. Prothrombin Time 16.6(H) 12.0 - 14.3 sec 12/26/2024 3:24 AM EDT [facility] INR 1.4(H) 0.9 - 1.1 12/26/2024 3:24 AM EDT [facility] Blood Venous blood specimen / Unknown Venipuncture / Unknown 12/26/2024 2:50 AM EDT 12/26/2024 3:09 AM EDT Narrative [facility] - 12/26/2024 3:24 AM EDT OPTIMAL INR RANGES FOR PATIENT ON ORAL ANTICOAGULANT THERAPY Prevention of venous thromboembolism INR 2.0 to 3.0 In patients with heart disease: Atrial fibrillation INR 2.0 to 3.0 Valvular heart disease INR 2.0 to 3.0 Tissue heart valves INR 2.0 to 3.0 Mechanical prosthetic valves INR 2.5 to 3.5 Prevention of recurrent OH INR 2.5 to 3.5 us Aramis Abreu MD LAB BLOOD ORDERABLES Final Res ult [facility] [address] [place] [address] * (ABNORMAL) Prealbumin (12/26/2024 2:50 AM EDT) Prealbumin, Plasma 10.0(L) 20.0 - 41.0 mg/dL 12/26/2024 3:47 AM EDT [facility] Blood Venous blood specimen / Unknown Venipuncture / Unknown 12/26/2024 2:50 AM EDT 12/26/2024 3:09 AM EDT us Iesha Pride MD LAB BLOOD ORDERABLE S Final Result Performing Organization Address City/[facility]/[place]IP [place] [address] * (ABNORMAL) Hemoglobin A1c (12/26/2024 2:50 AM EDT) Only the most recent of2 resultswithin the time period is included. Hemoglobin A1c 6.5(H) <5.7 % 12/26/2024 10:53 AM EDT [facility] Blood Venous blood specimen / Unknown Venipuncture / Unknown 12/26/2024 2:50 AM EDT 12/26/2024 3:17 AM EDT Narrative [facility] - 12/26/2024 10:53 AM EDT HA1C Interpretive Data: Diagnosis of Diabetes: Diabetic > or = 6.5% Pre-diabetic 5.7 to 6.4% Non-diabetic < or = 5.6% Glycemic Targets for Type I and Type II Diabetics: Non- Adults <7.0% Adults <6.0% Children and Adolescents <7.5% Source: [place] [employer]. Standards of medical care in diabetes,2017. Diabetes Care.2017:40 (suppl 1):S1-S135. Result Gael Abreu MD LAB BLOOD ORDERABLES Final Res ult Performing Organization Address City/[facility]/[place] [address] * Folate (12/26/2024 2:50 AM EDT) Folate, Serum 5.8 >4.6 ng/mL 12/26/2024 4:05 AM EDT [facility] Blood Venous blood specimen / Unknown Venipuncture / Unknown 12/26/2024 2:50 AM EDT 12/26/2024 3:17 AM EDT Result Gael Abreu MD LAB BLOOD ORDERABLES Final Res ult Performing Organization Address [facility] Co de Phone Number [facility] [address] [place] [address] * Ferritin (12/26/2024 2:50 AM EDT) Ferritin, Serum 113 20 - 400 ng/mL 12/26/2024 3:56 AM EDT [facility] Blood Venous blood specimen / Unknown Venipuncture / Unknown 12/26/2024 2:50 AM EDT 12/26/2024 3:17 AM EDT Result Gael Abreu MD LAB BLOOD ORDERABLES Final Res ult Performing Organization Address City/[facility]/ZIP Co de Phone Number [facility] [address] [place] [address] * Vitamin B12 (12/26/2024 2:50 AM EDT) Vitamin B12, Serum 979 210 - 1,033 pg/mL 12/26/2024 4:05 AM EDT [facility] Blood Venous blood specimen / Unknown Venipuncture / Unknown 12/26/2024 2:50 AM EDT 12/26/2024 3:17 AM EDT us Aramis Abreu MD LAB BLOOD ORDERABLES Final Res ult Performing Organization Address [facility] Co de Phone Number [facility] [address] [place] [address] * Cortisol (12/26/2024 2:50 AM EDT) [facility] Cortisol 13.00 Before 10am: 3.7 - 19.4. After 5pm: 2.9 - 17.3 ug/dL 12/26/2024 4:24 AM EDT [facility] Comment:Testing performed on [employer] Paunch Trimmer, standardized against ALF Reference Standard concentration values assigned by LC-MS/MS and verified by BCR 192 and BCR 193 certified reference materials. Blood Venous blood specimen / Unknown Venipuncture / Unknown 12/26/2024 2:50 AM EDT 12/26/2024 3:17 AM EDT us Aramis Abreu MD LAB REF LAB BLOOD AND FLUID OR D Final Result Performing Organization Address [facility] de Phone Number [facility] [address] [place] [address] * (ABNORMAL) CEA (12/26/2024 2:50 AM EDT) CEA, Serum 8.5(H) <4.0 ng/mL 12/26/2024 3:56 AM EDT [facility] Blood Venous blood specimen / Unknown Venipuncture / Unknown 12/26/2024 2:50 AM EDT 12/26/2024 3:17 AM EDT Narrative [facility] - 12/26/2024 3:56 AM EDT Normal range for smokers: < 5.5 ng/ml Normal range for non-smokers: <=4.0 ng/ml Performed by Luiza electrochemiluminescent immunoassay. Results obtained with different test methods or kits cannot be used interchangeably. us Aramis Abreu MD LAB BLOOD ORDERABLES Final Res ult Performing Organization Address City/[facility]/ZIP Co de Phone Number [facility] [address] [place] [address] * (ABNORMAL) Hepatic Function Panel (12/26/2024 2:50 AM EDT) Conjugated Bilirubin, Plasma 0.6(H) <=0.3 mg/dL 12/26/2024 3:46 AM EDT [facility] Comment:Hemolyzed, result ma y be falsely decreased. Alkaline Phosphatase, Plasma 160(H) 40 - 115 U/L 12/26/2024 3:46 AM EDT [facility] Total Bilirubin, Plasma 1.8(H) 0.2 - 1.1 mg/dL 12/26/2024 3:46 AM EDT [facility] Albumin, Plasma 3.4(L) 3.5 - 5.2 g/dL 12/26/2024 3:46 AM EDT [facility] Total Protein 6.0(L) 6.3 - 7.9 g/dL 12/26/2024 3:46 AM EDT [facility] ALT, Plasma 102(H) 10 - 50 U/L 12/26/2024 3:46 AM EDT [facility] AST, Plasma 32 10 - 50 U/L 12/26/2024 3:46 AM EDT [facility] Comment:Hemolyzed, result ma y be falsely increased. Blood Venous blood specimen / Unknown Venipuncture / Unknown 12/26/2024 2:50 AM EDT 12/26/2024 3:09 AM EDT us Aramis Abreu MD LAB BLOOD ORDERABLES Final Res ult Performing Organization Address [facility]/ZIP Co de Phone Number [facility] [address] [place] [address] * (ABNORMAL) Lipid panel (12/26/2024 2:50 AM EDT) Cholesterol, Plasma 119 <200 mg/dL 12/26/2024 3:46 AM EDT [facility] Comment: Cholesterol Reference Range (age >17 years): Desirable <200 mg/dL Borderline 200 to 239 mg/dL Undesirable >239 mg/dL HDL 37(L) >=40 mg/dL 12/26/2024 3:46 AM EDT [facility] Comment: HDL Cholesterol Reference Ranges (age >17 years): Female, acceptable > or = 50 mg/dL Male, acceptable > or = 40 mg/dL Triglycerides, Plasma 75 <150 mg/dL 12/26/2024 3:46 AM EDT [facility] Comment: Triglyceride Reference Range (age >17 years): Desirable: <150 mg/dL Borderline high: 150 to 199 mg/dL High: 200 to 499 mg/dL Very high: >499 mg/dL Increased risk of pancreatitis: >1000 mg/dL Cholesterol/HDL Ratio 3 12/26/2024 3:46 AM EDT [facility] LDL, Calculated 67 <100 mg/dL 3:46 AM EDT [facility] Comment: LDL Cholesterol Reference [...] 12 hours? No 12/26/2024 3:46 AM EDT [facility] Blood Venous blood specimen / Unknown Venipuncture / Unknown 12/26/2024 2:50 AM EDT 12/26/2024 3:09 AM EDT us Aramis Abreu MD LAB BLOOD ORDERABLES Final Res ult [facility] [address] [place] [address] * (ABNORMAL) Basic metabolic panel (12/26/2024 2:50 AM EDT) Glucose, Plasma 128(H) 74 - 99 mg/dL 12/26/2024 3:47 AM EDT [facility] BUN, Plasma 18 8 - 23 mg/dL 12/26/2024 3:47 AM EDT [facility] Creatinine, Plasma 1.10 0.70 - 1.20 mg/dL 12/26/2024 3:47 AM EDT [facility] BUN/Creatinine Ratio 16 12/26/2024 3:47 AM EDT [facility] Sodium, Plasma 139 136 - 145 mmol/L 12/26/2024 3:47 AM EDT [facility] Potassium, Plasma 4.7 3.6 - 4.9 mmol/L 12/26/2024 3:47 AM EDT [facility] Chloride, Plasma 105 97 - 107 mmol/L 12/26/2024 3:47 AM EDT [facility] CO2, Plasma 23 22 - 29 mmol/L 12/26/2024 3:47 AM EDT [facility] Anion Gap 11 6 - 16 mmol/L 12/26/2024 3:47 AM EDT [facility] Total Calcium, Plasma 8.9 8.9 - 10.2 mg/dL 12/26/2024 3:47 AM EDT [facility] eGFRcr 75.0 mL/min/1.7 3m*2 12/26/2024 3:47 AM EDT [facility] Comment:Reported eGFRcr in m L/min/1.73m2 is based the CKD-EPI 2020 equation that does not use a race coefficient. Blood Venous blood specimen / Unknown Venipuncture / Unknown 12/26/2024 2:50 AM EDT 12/26/2024 3:09 AM EDT us Aramis Abreu MD LAB BLOOD ORDERABLES Final Res ult [facility] [address] [place] [address] * CT Chest w IV Contrast (12/25/2024 [...] MD IMG CT PROCEDURES Final Result * EUS (Upper) (12/20/2024 9:46 AM EDT) [...] sample was sent for cytology analysis. Onsite lawn mower operator was not present Recommendations Await pathology results [...] fo this. They report Dr. Chirinos in [place] can see him regularly, if any of these occur. Indication Mass of head of pancreas Medications See anesthesia record for anesthesia administered medications. 500 mg IV Levaquin 100 mg NE indomethacin 1.0 mg IV glucagon (given as two doses of 0.5 mg) Staff Staff Role Sae Barriga MD Anesthesiologist Darian Jaramillo MD Proceduralist Pascual Dunlap CRNA CRNA Pitt, Emeric O Endo [employer] Henry RN Endo Nurse Preprocedure [...] sample was sent for cytology analysis. Onsite lawn mower operator was not present us Kiko Ball MD GI PROCEDURE ORDERABLES Final Re sult * ERCP (12/20/2024 9:46 AM EDT) Anatomical Region Laterality Modality Endoscopy Addenda Addendum by Darian Jaramillo MD on 12/20/2024 10:09 AM EDT Table formatting from the original result was not included. Impression Prior to introduction of the duodenoscope, fruit worker image was obtained. This showed no foreign [...] Proceduralist Pascual Dunlap, Dominic Umana CRNA Endo [place] Henry RN Endo Nurse Preprocedure [...] Findings Prior to introduction of the duodenoscope, fruit worker image was obtained. This showed no foreign [...] ORDERABLES Reynaldo heath Result - Final * Fine needle aspiration (12/20/2024 8:21 AM EDT) Case Report Cytology Case: [id number] Authorizing Provider: Darian Jaramillo MD Collected: 12/20/2024 0821 Ordering Location: [facility] H Endoscopy Received: 12/20/2024 1104 Pathologist: Carol Hyman MD Specimen: Pancreas, Fine Needle Aspiration, HEAD OF PANCREAS MASS, ENDOSCOPIC ULTRASOUND GUIDED FINE NEEDLE ASPIRATION 12/21/2024 4:16 PM EDT [facility] Final Diagnosis A. HEAD OF PANCREAS MASS, ENDOSCOPIC ULTRASOUND GUIDED FINE NEEDLE ASPIRATION: - SCANT MARKEDLY ATYPICAL CELLS, MOST COMPATIBLE WITH ADENOCARCINOMA (SEE COMMENT). 12/21/2024 4:16 PM EDT [facility] at 1616 EDT Comment Clinical and imaging correlation is suggested. 12/21/2024 4:16 PM EDT [facility] Intradepartmental Consultation with Agreement Dr. Dayami Marsk 12/21/2024 4:16 PM EDT [facility] Immediate Evaluation FNA performed by Dr. Jaramillo Number of sticks: Not provided This service has been rendered in part by a resident. A pathologist has personally reviewed the slides/tissue and has rendered and is responsible for diagnosis for the diagnosis that appears on the report. 12/21/2024 4:16 PM EDT [facility] Gross Description A. HEAD OF PANCREAS MASS, ENDOSCOPIC ULTRASOUND GUIDED FINE NEEDLE ASPIRATION 10 ml's tinted Needle rinse fluid processed as ThinPrep and cellblock for complete evaluation of sample. Slides were NOT received Cold Time: 4h 39m 12/21/2024 4:16 PM EDT [facility] Note: A resident was involved in the service. I attest I examined the relevant preparations for the specimens and confirmed the diagnosis or interpretation. 12/21/2024 4:16 PM EDT [facility] Clinical Information K86.89 - Mass of head of pancreas [ICD-10-CM] 12/21/2024 4:16 PM EDT [facility] Fine Needle Aspirate Pancreatic structure / Unknown 12/20/2024 8:21 AM EDT 12/20/2024 11:04 AM EDT us Darian Jaramillo MD LAB CYTOLOGY ORDERABLES Fin al Result Performing Organization Address [facility] de Phone Number [facility] [address] [place] [address] * Surgical Pathology Exam (12/20/2024 8:10 AM EDT) Case Report Surgical Pathology Case: [id number] Authorizing Provider: Darian Jaramillo MD Collected: 12/20/2024 0810 Ordering Location: [facility] H Endoscopy Received: 12/20/2024 1014 Pathologist: Jet Mike MD Specimen: Stomach, Gastric Bx 12/21/2024 9:37 AM EDT [facility] Final Diagnosis STOMACH, BIOPSY: - NO PATHOLOGIC ABNORMALITY - NO EVIDENCE OF HELICOBACTER-L CARLOTA ORGANISMS ON ROUTINE STAIN 12/21/2024 9:37 AM EDT [facility] at 0937 EDT Clinical Information K86.89 - Mass of head of pancreas [ICD-10-CM] 12/21/2024 9:37 AM EDT [facility] Gross Description A. GASTRIC BX Received in formalin labeled gastric biopsy are 4 swanson-brown soft tissue fragments measuring 0.2-0.4 cm in greatest dimension. Entirely submitted in cassette A1. Cold Time: <1m Eve Palmer 12/21/2024 9:37 AM EDT [facility] Tissue Stomach structure / Unknown 12/20/2024 8:10 AM EDT 12/20/2024 10:14 AM EDT us Darian Jaramillo MD LAB PATHOLOGY ORDERABLES Fi nal Result Performing Organization Address [facility]/ZIP Co de Phone Number [facility] [address] [place] [address] * NE AN ELECTIVE ENDOTRACHEAL AIRWAY, PB ANESTHESIA PLACEHOLDER (12/20/2024 8:00 AM EDT) Narrative FabiPascual alejandra CRNA - 12/20/2024 8:00 AM EDT Pascual Dunlap CRNA 12/20/2024 8:05 AM Airway Date/Time: 12/20/2024 8:00 AM Reason: elective Airway not difficult General Information and Staff Patient location during procedure: OR Anesthesiologist: Sae Barriga MD MUD PLANT OPERATOR: Pascual Dunlap CRNA Performed: MUD PLANT OPERATOR Patient Condition Indications for airway management: anesthesia [...] 12/07/2024 8:02 AM Final report signed by hSadia Vincent DO on 12/07/2024 10:07 AM Narrative [...] Lumbar spine fusion hardware. Procedure Note Shadia Vincent DO - 12/07/2024 CLINICAL INDICATION: Abdominal mass, intra-abdominal neoplasm suspected TECHNIQUE: MR imaging of the abdomen was performed with and without intravenouscontrast material using the following sequences: coronal single shot [id number] fast spin echo, axial T2 weighted sequences [...] LAB HEMATOLOGY METHOD 12/05/2024 8:18 PM EDT [facility] Blood Venous blood specimen / Unknown Venipuncture / Unknown 12/05/2024 8:08 PM EDT 12/05/2024 8:13 PM EDT us Raysa CAMARILLO LAB BLOOD ORDERABLES Final R esult [facility] [address] [place] [id number] * (ABNORMAL) Pain Management, Quantitative Urine Drug Testing (12/04/2024 11:00 AM EDT) [facility] [place] Alprazolam <20 <20 ng/mL 12/06 9:57 PM EDT [facility] [place] Midazolam <20 <20 ng/mL 2024 9:57 PM EDT [facility] [place] Triazolam <20 <20 ng/mL 2024 9:57 PM EDT [facility] Alprazolam <10 <10 ng/mL 12/06/2024 9:57 PM EDT [facility] Aminoclonazepam <20 <20 ng/mL 9:57 PM EDT [facility] Amphetamine <50 <50 ng/mL 12/06/2024 9:57 PM EDT [facility] Benzoylecgonine <50 <50 ng/mL 9:57 PM EDT [facility] Buprenorphine <10 <10 ng/mL 12/06/2024 9:57 PM EDT [facility] Buprenorphine Glucuronide <50 <50 ng/mL 12/06/2024 9:57 PM EDT [facility] Butalbital <50 <50 ng/mL 12/06/2024 9:57 PM EDT [facility] 9 Carboxy THC >250(H) <10 ng/mL 12/06/2024 9:57 PM EDT [facility] 9 Carboxy THC Glucuronide >500(H) <25 ng/mL 12/06/2024 9:57 PM EDT [facility] Clonazepam <10 <10 ng/mL 12/06/2024 9:57 PM EDT [facility] Codeine <50 <50 ng/mL 12/06/2024 9:57 PM EDT [facility] Codeine Glucuronide <50 <50 ng/mL 12/06 9:57 PM EDT [facility] Cyclobenzaprine <50 <50 ng/mL 9:57 PM EDT [facility] Desmethyl Tramadol <50 <50 ng/mL 2024 9:57 PM EDT [facility] Diazepam <10 <10 ng/mL 12/06/2024 9:57 PM EDT [facility] EDDP - Methadone Metabolite <50 <50 ng/mL 12/06/2024 9:57 PM EDT [facility] Fentanyl <1 <1 ng/mL 12/06/2024 9:57 PM EDT [facility] Hydrocodone <50 <50 ng/mL 12/06/2024 9:57 PM EDT [facility] Hydromorphone <50 <50 ng/mL 12/06/2024 9:57 PM EDT [facility] Hydromorphone Glucuronide <50 <50 ng/mL 12/06/2024 9:57 PM EDT [facility] Lorazepam <20 <20 ng/mL 12/06/2024 9:57 PM EDT [facility] Lorazepam Glucuronide <50 <50 ng/mL 12/06/2024 9:57 PM EDT [facility] MDA <50 <50 ng/mL 12/06/2024 9:57 PM EDT [facility] MDMA <50 <50 ng/mL 12/06/2024 9:57 PM EDT [facility] Meperidine <50 <50 ng/mL 12/06/2024 9:57 PM EDT [facility] Methadone <50 <50 ng/mL 12/06/2024 9:57 PM EDT [facility] Methamphetamine <50 <50 ng/mL 9:57 PM EDT [facility] Methylphenidate <50 <50 ng/mL 9:57 PM EDT [facility] 6 Monoacetyl morphine <10 <10 ng/mL 12/06/2024 9:57 PM EDT [facility] Morphine >1,000(H) <50 ng/mL 12/06/2024 9:57 PM EDT [facility] Morphine Glucuronide >1,000(H) <50 ng/mL 11/25 9:57 PM EDT [facility] Naloxone <50 <50 ng/mL 12/06/2024 9:57 PM EDT [facility] Naloxone Glucuronide <50 <50 ng/mL 11/25 9:57 PM EDT [facility] Norbuprenorphine <10 <10 ng/mL 12/07/19 9:57 PM EDT [facility] Norbuprenorphine Glucuronide <50 <50 ng/mL 12/06/2024 9:57 PM EDT [facility] Nordiazepam <20 <20 ng/mL 12/06/2024 9:57 PM EDT [facility] Norfentanyl <2 <2 ng/mL 12/06/2024 9:57 PM EDT [facility] Normeperidine <50 <50 ng/mL 12/06/2024 9:57 PM EDT [facility] PCP Quant, Ur <50 <50 ng/mL 12/06/2024 9:57 PM EDT [facility] Phenobarbital <50 <50 ng/mL 12/06/2024 9:57 PM EDT [facility] Oxazepam <20 <20 ng/mL 12/06/2024 9:57 PM EDT [facility] Oxazepam Glucuronide <50 <50 ng/mL 11/25 9:57 PM EDT [facility] Oxycodone <50 <50 ng/mL 12/06/2024 9:57 PM EDT [facility] Oxymorphone <50 <50 ng/mL 12/06/2024 9:57 PM EDT [facility] Oxymorphone Glucuronide <50 <50 ng/mL 12/06/2024 9:57 PM EDT [facility] Secobarbital <50 <50 ng/mL 12/06/2024 9:57 PM EDT [facility] Tramadol <50 <50 ng/mL 12/06/2024 9:57 PM EDT [facility] Temazepam <20 <20 ng/mL 12/06/2024 9:57 PM EDT [facility] Temazepam Glucuronide <50 <50 ng/mL 12/06/2024 9:57 PM EDT [facility] Urine Urine specimen obtained by clean catch procedure / Unknown Non-blood Collection / Unknown 12/04/2024 11:00 AM EDT 12/04/2024 11:17 AM EDT Narrative [facility] - 12/06/2024 9:57 PM [...] laboratory. Test performed by LC-MS/MS at the [facility]. This test was developed and its performance characteristics determined by [facility]. It has not been cleared or approved by the FDA. The laboratory is regulated under CLIA as qualified to perform high-complexity testing. This test is used for clinical purposes. us Jeff Cramer APRN LAB URINE ORDERABLES Final Re sult Performing Organization Address [facility] de Phone Number [facility] [address] [place] [address] * Urinalysis Microscopic Examination (12/04/2024 11:00 AM EDT) Urine Urine specimen obtained by clean catch procedure / Unknown Non-blood Collection / Unknown 12/04/2024 11:00 AM EDT 12/04/2024 11:17 AM EDT Jeff Cramer APRN LAB URINE ORDERABLES Final Re sult Performing Organization Address [facility] de Phone Number [facility] [address] [place] [address] * Urea Nitrogen, Random Urine (12/04/2024 11:00 AM EDT) Urea Nitrogen, Urine 1,201 mg/dL 12/04/2024 1:34 PM EDT [facility] Urine Urine specimen obtained by clean catch procedure / Unknown Non-blood Collection / Unknown 12/04/2024 11:00 AM EDT 12/04/2024 11:17 AM EDT us Jeff Cramer APRN LAB URINE ORDERABLES Final Re sult Performing Organization Address [facility] de Phone Number [facility] [address] [place] [address] * Sodium, Random, Urine (12/04/2024 11:00 AM EDT) Sodium, Urine 34 mmol/L 12/04/2024 11:53 AM EDT [facility] Urine Urine specimen obtained by clean catch procedure / Unknown Non-blood Collection / Unknown 12/04/2024 11:00 AM EDT 12/04/2024 11:17 AM EDT us Jeff Cramer HATCH TENDER LAB URINE ORDERABLES Final Re sult Performing Organization Address [facility]/ZIP Co de Phone Number [facility] [address] [place] [address] * Protein, Random, Urine with Creatinine (12/04/2024 11:00 AM EDT) Protein, Urine 18 mg/dL 12/04/2024 11:53 AM EDT [facility] Creatinine, Urine 195 mg/dL 12/04/2024 11:53 AM EDT [facility] Protein/Creati nine Ratio 0.1 mg/mg Creat 12/04/2024 11:53 AM EDT [facility] Urine Urine specimen obtained by clean catch procedure / Unknown Non-blood Collection / Unknown 12/04/2024 11:00 AM EDT 12/04/2024 11:17 AM EDT Jeff Cramer HATCH TENDER LAB URINE ORDERABLES Final Re sult Performing Organization Address [facility] de Phone Number [facility] [address] [place] [address] * (ABNORMAL) Comprehensive Urine Drug Screening, Qualitative Assay, >= 27 Drug Classes (1:00 AM EDT) Acetaminophen Negative Negative 12/05/2024 6:03 PM EDT [facility] Alprazolam Negative Negative 12/05/2024 6:03 PM EDT [facility] Amantadine Negative Negative 12/05/2024 6:03 PM EDT [facility] Amitriptyline Negative Negative 12/05/2024 6:03 PM EDT [facility] Amphetamine Negative Negative 12/05/2024 6:03 PM EDT [facility] Atenolol Negative Negative 12/05/2024 6:03 PM EDT [facility] Benzoylecgonine Negative Negative 6:03 PM EDT [facility] Bisoprolol Negative Negative 12/05/2024 6:03 PM EDT [facility] Bupropion Negative Negative 12/05/2024 6:03 PM EDT [facility] Butalbital Negative Negative 12/05/2024 6:03 PM EDT [facility] Carbamazepine Negative Negative 12/05/2024 6:03 PM EDT [facility] Carisoprodol Negative Negative 12/05/2024 6:03 PM EDT [facility] Chlorpheniramine Negative Negative 12/06/19 6:03 PM EDT [facility] Citalopram Negative Negative 12/05/2024 6:03 PM EDT [facility] Clindamycin Negative Negative 12/05/2024 6:03 PM EDT [facility] Clonidine Negative Negative 12/05/2024 6:03 PM EDT [facility] Clopidogrel / Ticlopidine Negative Negative 12/05/2024 6:03 PM EDT [facility] Cocaethylene Negative Negative 12/05/2024 6:03 PM EDT [facility] Cocaine Negative Negative 12/05/2024 6:03 PM EDT [facility] Codeine Negative Negative 12/05/2024 6:03 PM EDT [facility] Cyclobenzaprine Negative Negative 6:03 PM EDT [facility] Desvenlafaxine Negative Negative 12/05/2024 6:03 PM EDT [facility] Dextromethorphan Negative Negative 12/06/19 6:03 PM EDT [facility] Diazepam Negative Negative 12/05/2024 6:03 PM EDT [facility] Diltiazem Negative Negative 12/05/2024 6:03 PM EDT [facility] Diphenhydramine Negative Negative 6:03 PM EDT [facility] Doxepine Negative Negative 12/05/2024 6:03 PM EDT [facility] Doxylamine Negative Negative 12/05/2024 6:03 PM EDT [facility] EDDP-Methadone metabolite Negative Negative 12/05/2024 6:03 PM EDT [facility] Fentanyl Negative Negative 12/05/2024 6:03 PM EDT [facility] Fluconazole Negative Negative 12/05/2024 6:03 PM EDT [facility] Fluoxetine Negative Negative 12/05/2024 6:03 PM EDT [facility] Guaifenesin Negative Negative 12/05/2024 6:03 PM EDT [facility] Haloperidol Negative Negative 12/05/2024 6:03 PM EDT [facility] Heroin/6-BROOKE Negative Negative 12/05/2024 6:03 PM EDT [facility] Hydrocodone Negative Negative 12/05/2024 6:03 PM EDT [facility] Hydroxyzine / Cetirizine metabolite Negative Negative 12/05/2024 6:03 PM EDT [facility] Ibuprofen Negative Negative 12/05/2024 6:03 PM EDT [facility] Imipramine Negative Negative 12/05/2024 6:03 PM EDT [facility] Ketamine Negative Negative 12/05/2024 6:03 PM EDT [facility] Labetolol Negative Negative 12/05/2024 6:03 PM EDT [facility] Lamotrigine Negative Negative 12/05/2024 6:03 PM EDT [facility] Levetiracetam Negative Negative 12/05/2024 6:03 PM EDT [facility] Lidocaine Negative Negative 12/05/2024 6:03 PM EDT [facility] MDA Negative Negative 12/05/2024 6:03 PM EDT [facility] MDMA Negative Negative 12/05/2024 6:03 PM EDT [facility] Memantine Negative Negative 12/05/2024 6:03 PM EDT [facility] Meperidine Negative Negative 12/05/2024 6:03 PM EDT [facility] Meprobamate Negative Negative 12/05/2024 6:03 PM EDT [facility] Metaxalone Negative Negative 12/05/2024 6:03 PM EDT [facility] Methamphetamine Negative Negative 6:03 PM EDT [facility] Methocarbamol Negative Negative 12/05/2024 6:03 PM EDT [facility] Methylecgonine Negative Negative 12/05/2024 6:03 PM EDT [facility] Metoclopramide Negative Negative 12/05/2024 6:03 PM EDT [facility] Metoprolol Negative Negative 12/05/2024 6:03 PM EDT [facility] Metronidazole Negative Negative 12/05/2024 6:03 PM EDT [facility] Midazolam Negative Negative 12/05/2024 6:03 PM EDT [facility] Midazolam Metabolite Negative Negative 12/05/2024 6:03 PM EDT [facility] Mirtazapine Negative Negative 12/05/2024 6:03 PM EDT [facility] Misc Test Result Positive(A) Negative 025 6:03 PM EDT [facility] Comment: Gabapentin: Detected Morphine: Detected Naproxen Negative Negative 12/05/2024 6:03 PM EDT [facility] Nefazodone Negative Negative 12/05/2024 6:03 PM EDT [facility] Norfentanyl Negative Negative 12/05/2024 6:03 PM EDT [facility] Nortriptyline Negative Negative 12/05/2024 6:03 PM EDT [facility] Ordanstron Negative Negative 12/05/2024 6:03 PM EDT [facility] Oxcarbazepine Negative Negative 12/05/2024 6:03 PM EDT [facility] Oxycodone Negative Negative 12/05/2024 6:03 PM EDT [facility] Paroxethine Negative Negative 12/05/2024 6:03 PM EDT [facility] Phenobarbital Negative Negative 12/05/2024 6:03 PM EDT [facility] Phentermine Negative Negative 12/05/2024 6:03 PM EDT [facility] Phenytoin Negative Negative 12/05/2024 6:03 PM EDT [facility] Primidone Negative Negative 12/05/2024 6:03 PM EDT [facility] Promethazine Negative Negative 12/05/2024 6:03 PM EDT [facility] Propofol Negative Negative 12/05/2024 6:03 PM EDT [facility] Propranolol Negative Negative 12/05/2024 6:03 PM EDT [facility] Quetiapine Negative Negative 12/05/2024 6:03 PM EDT [facility] Quinine Negative Negative 12/05/2024 6:03 PM EDT [facility] Rantidine Negative Negative 12/05/2024 6:03 PM EDT [facility] Sertraline Negative Negative 12/05/2024 6:03 PM EDT [facility] Spironolactone Negative Negative 12/05/2024 6:03 PM EDT [facility] Tizanidine Negative Negative 12/05/2024 6:03 PM EDT [facility] Topiramate Negative Negative 12/05/2024 6:03 PM EDT [facility] Tramadol Negative Negative 12/05/2024 6:03 PM EDT [facility] Trazadone/ Trazadone metabolite Negative Negative 12/05/2024 6:03 PM EDT [facility] Trimethoprim Negative Negative 12/05/2024 6:03 PM EDT [facility] Valproic Acid Negative Negative 12/05/2024 6:03 PM EDT [facility] Venlafaxine Negative Negative 12/05/2024 6:03 PM EDT [facility] Verapamil Negative Negative 12/05/2024 6:03 PM EDT [facility] Zolpidem Negative Negative 12/05/2024 6:03 PM EDT [facility] Xylazine Negative Negative 12/05/2024 6:03 PM EDT [facility] Urine Urine specimen obtained by clean catch procedure / Unknown Non-blood Collection / Unknown 12/04/2024 11:00 AM EDT 12/04/2024 11:17 AM EDT us Jeff Cramer APRN LAB URINE ORDERABLES Final Re sult [facility] [address] [place] [address] * (ABNORMAL) Urinalysis with reflex microscopic (Culture NOT Included) (12/04/2024 11:00 AM EDT) Color, Urine Dark Yellow LAB URINALYSIS - AUTOMATED METHOD 12/04/2024 11:40 AM EDT [facility] Clarity, Urine Clear LAB URINALYSIS - AUTOMATED METHOD 12/04/2024 11:40 AM EDT [facility] Spec Panacea, Urine >1.030(H) 1.005 - 1.030 LAB URINALYSIS - AUTOMATED METHOD 12/04/2024 11:[address] [facility] pH, Urine 5.5 5.0 - 8.0 LAB URINALYSIS - AUTOMATED METHOD 12/04/2024 11:[address] [facility] Protein, Urine Trace(A) Negative mg/dL LAB URINALYSIS - AUTOMATED METHOD 12/04/2024 11:[address] [facility] Glucose, Urine Negative Negative mg/dL LAB URINALYSIS - AUTOMATED METHOD 12/04/2024 11:[address] [facility] Ketones, Urine Negative Negative mg/dL LAB URINALYSIS - AUTOMATED METHOD 12/04/2024 11:[address] [facility] Blood, Urine Negative Negative LAB URINALYSIS - AUTOMATED METHOD 12/04/2024 11:[address] [facility] Bilirubin, Urine Small(A) Negative LAB URINALYSIS - AUTOMATED METHOD 12/04/2024 11:[address] [facility] Urobilinogen, Urine 1.0 0.2 to 1.0 mg/dL LAB URINALYSIS - AUTOMATED METHOD 12/04/2024 11:[address] [facility] Leukocytes, Urine Trace(A) Negative LAB URINALYSIS - AUTOMATED METHOD 12/04/2024 11:[address] [facility] Nitrite, Urine Negative Negative LAB URINALYSIS - AUTOMATED METHOD 12/04/2024 11:[address] [facility] RBC, Urine <1 0 to 3 /HPF 12/04/2024 11:[address] [facility] Comment:This result was prev iously suppressed from the chart. WBC, Urine 0 - 5 0 to 5 /HPF 12/04/2024 11:[address] [facility] Comment:This result was prev iously suppressed from the chart. Squamous Epithelial Cells 0 - 2 0 to 5 /HPF 12/04/2024 11:[address] [facility] Comment:This result was prev iously suppressed from the chart. Hyaline Casts 0 - 2 0 to 5 /LPF 12/04/2024 11:[address] [facility] Comment:This result was prev iously suppressed from the chart. Bacteria, Urine Negative Negative 12/04/2024 11:[address] [facility] Comment:This result was prev iously suppressed from the chart. Urine Urine specimen obtained by clean catch procedure / Unknown Non-blood Collection / Unknown 12/04/2024 11:00 AM EDT 12/04/2024 11:17 AM EDT [facility] - 12/04/2024 11:40 AM EDT Performed by manual method Jeff Cramer APRN LAB URINE ORDERABLES Final Re sult Performing Organization Address [facility] de Phone Number [facility]ARE [facility] [address] [place] [address] * ECG Adult (12/04/2024 5:57 AM EDT) EKG DIAGNOSIS CLASS Abnormal MUSE ECG Ventricular Rate 110 BPM MUSE ECG QRSD Interval 100 ms MUSE ECG QT Interval 354 ms MUSE ECG QTC Interval 479 ms MUSE ECG R [place] 62 degrees MUSE ECG T Wave [place] -8 degrees MUSE ECG Diagnosis Atrial fibrillation with rapid ventricular response MUSE ECG Diagnosis Abnormal QRS-T angle, consider primary T wave abnormality MUSE ECG Diagnosis Abnormal ECG MUSE ECG Diagnosis MUSE ECG Diagnosis Confirmed by Lex Sorto ([id number]) on 12/04/2024 1:47:13 PM MUSE ECG 12/04/2024 5:57 AM EDT 12/04/2024 1:47 PM EDT Jeff Cramer APRN ECG ORDERABLES Final Result Performing Organization Address [facility] de Phone Number MUSE ECG * (ABNORMAL) POCT glucose meter [...] for testing. Comment 12/04/2024 5:38 AM EDT [facility] Commercial Pest Control Technician ID Aissatou Tuttle 12/04/2024 5:38 AM EDT [facility]ALTH[facility]ARE [facility] Device ID [id number] 12/04/2024 5:38 AM EDT [facility] Specimen Type POC Capillary 12/04/2024 5:38 AM EDT [facility] Blood Capillary blood specimen / Unknown 12/04/2024 5:35 AM EDT 12/04/2024 5:38 AM EDT Kiko Ball MD LAB POINT OF CARE TE ST DOCKED DEVICE UNSOLICITED RESULTS Final Result [facility] [address] [place] [address] * XR Chest 1 View (12/04/2024 5:19 [...] Sourav Mcclendon MD on 12/04/2024 10:08 AM Jeff Cramer HATCH TENDER IMG XR PROCEDURES Final Resul t * ED HIV 1/2 Antibody/Antigen Screen w/Reflex to HIV 1/2 Differentiation (12/03/2024 11:18 PM EDT) Pathologist [facility] HIV 1 & 2 Antibody/Antigen Screen Non Reactive Non Reactive 12/04/2024 12:09 AM EDT [facility] Comment:Screening for HIV 1 & 2 antibodies, and P24 antigen is NONREACTIVE. No confirmatory testing is required. Blood Venous blood specimen / Unknown Venipuncture / Unknown 12/03/2024 11:18 PM EDT 12/03/2024 11:21 PM EDT Margarito [facility] BLOOD ORDERABLES Final Res ult Performing Organization Address City/[facility] Co de Phone Number HEALTHCARE LAB [address] [place] [address] * Hepatitis C Antibody - ED (12/03/2024 11:18 PM EDT) [facility] Hepatitis C Antibody Negative Negative 12/03/2024 11:54 PM EDT [facility] Blood Venous blood specimen / Unknown Venipuncture / Unknown 12/03/2024 11:18 PM EDT 12/03/2024 11:21 PM EDT Margarito CAM[facility] LAB BLOOD ORDERABLES Final Res ult Performing Organization Address City/[facility] Co de Phone Number [facility]ALTH[facility]ARE [facility] [address] [place] [address] * Triglycerides (12/03/2024 11:18 PM EDT) Pathologist [facility] Triglycerides, Plasma 63 <150 mg/dL 12/04/2024 [...] EDT 12/03/2024 11:21 PM EDT Jeff Cramer HATCH TENDER LAB BLOOD ORDERABLES Final Re sult [facility] [address] [place] [address] * CT OUTSIDE IMAGES (12/03/2024 6:40 PM EDT) Anatomical Region Laterality Modality Computed Tomogra phy 12/03/2024 6:40 PM EDT Thomas CAMARILLO IMG CT PROCEDURES Final Result * XR OUTSIDE IMAGES (12/03/2024 5:23 PM EDT) Anatomical Region Laterality Modality Radiographic Koki ging 12/03/2024 5:23 PM EDT Thomas CAMAR[facility]O IMG XR PROCEDURES Final Result from Last 3 Months Additional Health Concerns Active Problems Noted Date Diagnosed Date Autogenerated Problem 01/02/2025 Insurance MEDICARE Advance Directives * DNR/DNI (Latest Code Status on File) Date Activated Date Inactivated Comments 01/02/2025 3:00 AM 01/03/2025 5:59 PM Question Answer Comments DNR determined on/before admission date? Yes I have reviewed the capacity from the link above and, if needed, have updated to appropriate status: Yes * Full Code Date Activated Date Inactivated Comments 12/25/2024 12:23 [...] updated to appropriate status: Yes Care Teams Stoneworker Relationship Specialty Start Date End Date Raimundo Chirinos MD [address] [place] [address] PCP - General 11/18/21 Moiz Mcnally MD [address] [place] [id number] Surgeon Neurosurgery 11/18/21 Bridgett Gonzales APRN [address] [place] [address] Nurse Practitioner Neurosurgery 01/07/22 Ynes Rocha LPN [facility] TCM Nurse 12/27/24 Terrance Corral Community Health Worker 12/27/24
--- OUTSIDE RECORDS SUMMARY | 2025-01-16 08:51 | XMS_ITS | Encounter Summary ---
Author Organization [facility] Address [address] [place] [address] Care Team Providers Care Partition Notcher Name Role Phone Raimundo Chirinos MD Primary Care Provider [phone] Moiz Mcnally MD Unavailable [phone] Bridgett Gonzales MANAGER OF ADMINISTRATION Unavailable [phone] Purvi Foy RN Unavailable Unavailab Ynes Lozano RETAIL SELLING SPECIALIST Unavailable Unavailab Terrance Hedz Unavailable Unavailable Reason for Referral * Consultation (Urgent) - Authorized Specialty Diagnoses / Procedures Referred By Contact Referred To Contact Surgical Oncology / Hematology and Oncology Diagnoses Mass of head of pancreas Adenocarcinoma of head of pancreas (CMS/HCC) Darian Jaramillo MD [address] [facility] [address] [place] [address] Phone: tel:[phone] fax:[phone] [facility] [address] [place] [address] Phone: tel: fax: Referral ID Status Reason Start Date Expiration Date Visits Requested Visits Authorized [id number] Authorized Specialty Services Required 12/24/2024 06/25/2026 1 1 Encounter Details Date Type Department Care Team (Late st Contact Info) Description 12/24/2024 Orders Only [facility] Medicine Specialties [address] [place] [address] Darian Jaramillo MD [address] [place] [address] Adenocarcinoma of head of pancreas (CMS/HCC) (Primary [...] any time in the past 12 m [facility], were you homeless or living in [...] drink first t zeb in the morning (EYE-SSRS DEVELOPER) to steady your nerves or to get rid of a hangover? 0 12/05/2024 CAGE Questionnaire Score 0 025 Utilities Answer Date Recorded In the past 12 months has th e [employer], gas, oil, or water company threatened to [...] Description 01/24/2025 8:30 AM EDT Office Visit [facility] Multidisciplinary Oncology Clinic [address] [place] [phone] Nito Balderas MD [address] [place] [address] Scheduled Referrals Name Type Priority Associated Diagnoses [...] documented as of this encounter Care Teams Partition Notcher Relationship Specialty Start Date End Date Raimundo Chirinos MD [address] [place], [place] [address] [address] [place] [address] PCP - General 11/18/21 Moiz Mcnally MD [address] [facility] [place] [address] Surgeon Neurosurgery 11/18/21 Bridgett Gonzales APRN [address] [place] [address] Nurse Practitioner Neurosurgery 01/07/22 Purvi Foy RN CH-VASCULAR & INTERVENTIONAL RADIOLOGY Registered Nurse 12/26/24 12/26/24 Ynes Rocha LPN [facility] TCM Nurse 12/27/24 Terrance Corral Community Health Worker 12/27/24 documented as of this encounter
--- OUTSIDE RECORDS SUMMARY | 2025-01-16 08:51 | XMS_ITS | Encounter Summary ---
Author Organization [facility] Address [address] [place] [address] Care Team Providers Care Commercial Loan Officer Name Role Phone Raimundo Chirinos MD Primary Care Provider [phone] Moiz Mcnally MD Unavailable [phone] Bridgett Gonzales PORTABLE FEED MILL OPERATOR Unavailable [phone] Purvi Foy RN Unavailable Unavailab Ynes Lozano CONCRETE PRECAST MOULDER Unavailable Unavailab Terrance Hdez Unavailable Unavailable Reason for Visit * Reason Comments Med Refill Encounter Details Date Type Department Care Team (Late Contact Info) Description 06/17/2022 Refill [place] [facility] [address] [place] [address] Rocio Enamorado, PORTABLE FEED MILL OPERATOR [address] [place] [address] Social History Tobacco Use Types [...] 8:30 AM EDT Office Visit [facility] [address] [place] [phone] Nito Balderas MD [address] [place] [address] documented as of this encounter Visit Diagnoses Not on filedocumented in this encounter Additional Health Concerns Assessment Noted Time A fall risk assessment has been complete d for the patient 03/10/2022 9:47 AM EDT documented as of this encounter Care Teams Commercial Loan Officer Relationship Specialty Start Date End Date Raimundo Chirinos MD [facility] [id number] [place] [address] PCP - General 11/18/21 Moiz Mcnally MD [address] [address] Surgeon Neurosurgery 11/18/21 Bridgett Gonzales APRN [address] [facility] [place] [address] Nurse Practitioner Neurosurgery 01/07/22 Purvi Foy, RN CH-VASCULAR & INTERVENTIONAL RADIOLOGY Registered Nurse 12/26/24 12/26/24 Ynes Rocha LPN [facility] TCM Nurse 12/27/24 Terrance Corral Community Health Worker 12/27/24 documented as of this encounter
--- OUTSIDE RECORDS SUMMARY | 2025-01-16 08:51 | XMS_ITS | Encounter Summary ---
Author Organization [facility] Address [address] [id number] Care Team Providers Care Dietetic Aide Name Role Phone Raimundo Chirinos MD Primary Care Provider [phone] Moiz Mcnally MD Unavailable [phone] Bridgett Gonzales SOCIAL WORK CASE MANAGER Unavailable [phone] Ynes Rocha RADIOCOMMUNICATIONS TECHNICIAN Unavailable Unavailab Terrance Hdez Unavailable Unavailable Reason for Visit * Reason Onset Date Comments [facility] Care 01/07/2025 Encounter Details Date Type Department Care Team (Late st Contact Info) Description 01/07/2025 Telephone [facility] [address] [place] [address] Nito Balderas MD [address] [place] [address] [facility] Social History Tobacco Use Types Packs/Day Years [...] any time in the past 12 m [facility], were you homeless or living in a mcc (including now)? No 01/04/2025 CAGE ASSESSMENT Answer [...] first t zeb in the morning (EYE-DIRECTOR OF MARKETING) to steady your nerves or to get [...] encounter Miscellaneous Notes * Telephone Encounter - Jacquie Guerra - 01/08/2025 3:16 PM EDT Attempt 2: Care Guide (CG) called the patient (pt) at and successfully completed outreach. Pt reported they are doing well and have no needs at this time. * Telephone Encounter - CharlieCharlesJacquie M - 01/07/2025 2:56 PM EDT Attempt 1: Care Guide (CG) called the patient (pt) at > No answer. LVM. CG will attempt again. documented in this encounter Plan of Treatment Upcoming Encounters Date Type Department Care Team (Late st Contact Info) Description 01/24/2025 8:30 AM EDT Office Visit [facility] Multidisciplinary Oncology Clinic [address] [place] [phone] Nito Balderas MD [address] [place] [address] documented as of this encounter Goals Goal [...] documented as of this encounter Care Teams Dietetic Aide Relationship Specialty Start Date End Date Raimundo Chirinos MD [address] [place] [address] [address] [place] [address] PCP - General 11/18/21 Moiz Mcnally MD [address] [place] [address] Surgeon Neurosurgery 11/18/21 Bridgett Gonzales APRN [address] [place] [address] Nurse Practitioner Neurosurgery 01/07/22 Ynes Rocha LPN [facility] TCM Nurse 12/27/24 Terrance Corral Community Health Worker 12/27/24 documented as of this encounter
--- OUTSIDE RECORDS SUMMARY | 2025-01-16 08:51 | XMS_ITS | Encounter Summary ---
Author Organization [facility] Address [address] [place] [address] Care Team Providers Care Farm Equipment Maintenance Supervisor Name Role Phone Raimundo Chirinos MD Primary Care Provider [phone] Moiz Mcnally MD Unavailable [phone] Bridgett Gonzales STEREO PLOTTER OPERATOR Unavailable [phone] Ynes Rocha LPN Unavailable Unavailab Terrance Hdez Unavailable Unavailable Reason for Visit * Reason Comments TCM Call Encounter Details Date Type Department Care Team (Late st Contact Info) Description 01/04/2025 Patient Outreach [place] [id number] [facility], [address] [place] [address] Ynes Rocha LPN [facility] TCM Call [...] time in the past 12 m [facility], were you homeless or living in a long-term (including now)? No 01/04/2025 CAGE ASSESSMENT Answer [...] drink first t zeb in the morning (EYE-REGENERATION OPERATOR) to steady your nerves or to get rid of a hangover? 0 12/05/2024 CAGE Questionnaire Score 0 025 Utilities Answer Date Recorded In the past 12 months has e [facility], gas, oil, or water company threatened to shut off services in your home? No 01/04/2025 Sex and Gender Information Value Date Recorded Sex Assigned at Not on file Legal Sex Male 6:38 PM EDT Gender Identity Not on file Sexual Orientation Not on file documented as of this encounter Miscellaneous Notes * Progress Notes - Ynes Rocha LPN - 01/04/2025 2:52 PM EDT Admit Date: 01/01/2025 Discharge Date: 01/03/2025 Hospital Service: [facility] Discharge Diagnosis: Biliary obstruction 01/04/2025 TCM call # 1 Patient Reached: Y Outcome: Called patient for TCM nurse call. Advised patient he would need to schedule appointment with PCP. Patient states they will have transportation to appointment. Patient states since being home they are doing well. Patient denies N/V/D, fever, SOA, chest pain,abdominal pain, headaches or chills. Patient is eating, drinking, and using the restroom normally. Medications were reviewed with patient and patient states that the Xarelto medication he was prescribed is not covered by his insurance and is $500 out of pocket. Patient's PCP put patient on Eliquis instead. SDOH needs were updated with patient and no needs were identified at time of TCM call. Patient did not voice any other questions or concerns during TCM call. Action: Updated medication list to reflect new prescription from PCP. Medication changes: rivaroxaban 20 MG tablet Commonly known as: Xarelto Take 1 tablet by mouth 1 time each day with dinner [facility] appointment: Patient will schedule with PCP Items to address at [facility] ISELA: N/A documented in this encounter Plan of Treatment Upcoming Encounters Date Type Department Care Team (Late st Contact Info) Description 01/24/2025 8:30 AM EDT Office Visit [facility] Multidisciplinary Oncology Clinic [address] [place] [phone] Nito Balderas MD [address] [place] [address] documented as of this encounter Goals Goal [...] documented as of this encounter Care Teams Farm Equipment Maintenance Supervisor Relationship Specialty Start Date End Date Raimundo Chirinos MD [address] [facility] [address] [place] [id number] PCP - General 11/18/21 Moiz Mcnally MD [address] [place] [address] Surgeon Neurosurgery 11/18/21 Bridgett Gonzales APRN [address] [place] [address] Nurse Practitioner Neurosurgery 01/07/22 Ynes Rocha LPN [facility] TCM Nurse 12/27/24 Terrance Corral Community Health Worker 12/27/24 documented as of this encounter
--- OUTSIDE RECORDS SUMMARY | 2025-01-16 08:51 | XMS_ITS | Encounter Summary ---
Author Organization [facility] Address [address] [place] [address] Care Team Providers Care Optical Engineer Name Role Phone Raimundo Chirinos MD Primary Care Provider [phone] Moiz Mcnally MD Unavailable [phone] Bridgett Gonzales FHA UNDERWRITER Unavailable [phone] Ynes Rocha LIBRARIAN SPECIAL COLLECTIONS Unavailable Unavailab Terrance Hdez Unavailable Unavailable Reason for Visit * Reason Comments Follow-up Encounter Details Date Type Department Care Team (Late st Contact Info) Description 01/11/2025 Patient Outreach POPULATION HEALTH [address] [facility], [address] [place] [address] Terrance Corral Follow-up Social History Tobacco Use Types Packs/Day Years [...] any time in the past 12 m [facility], were you homeless or living in a snf (including now)? No 01/04/2025 CAGE ASSESSMENT Answer [...] drink first t zeb in the morning (EYE-ELECTRIC WIRER) to steady your nerves or to get rid of a hangover? 0 12/05/2024 CAGE Questionnaire Score 0 025 Utilities Answer Date Recorded In the past 12 months has th e [employer], gas, oil, or water company threatened to shut off services in your home? No 01/04/2025 Sex and Gender Information Value Date Recorded Sex Assigned at Not on file Legal Sex Male 6:38 PM EDT Gender Identity Not on file Sexual Orientation Not on file documented as of this encounter Miscellaneous Notes * Progress Notes - Terrance Corral - 01/11/2025 11:12 AM EDT CHW attempted to outreach pt to continue discussing SDOH needs. Had to leave vm. documented in this encounter Plan of Treatment Upcoming Encounters Date Type Department Care Team (Late st Contact Info) Description 01/24/2025 8:30 AM EDT Office Visit [facility] Multidisciplinary Oncology Clinic [address] [place] [address] Nito Balderas MD [address] [place] [address] documented as of this encounter Goals Goal [...] documented as of this encounter Care Teams Optical Engineer Relationship Specialty Start Date End Date Raimundo Chirinos MD [address] [place] [address] [address] [place] [address] PCP - General 11/18/21 Moiz Mcnally MD [address] [place] [address] Surgeon Neurosurgery 11/18/21 Bridgett Gonzales APRN [address] [place] [address] Nurse Practitioner Neurosurgery 01/07/22 Ynes Rocha LPN [facility] TCM Nurse 12/27/24 Terrance Corral Community Health Worker 12/27/24 documented as of this encounter
--- OUTSIDE RECORDS SUMMARY | 2025-01-16 08:51 | XMS_ITS | Encounter Summary ---
Author Organization [facility] Address [address] [place] [address] Care Team Providers Care Yarn Weight And Strength Tester Name Role Phone Raimundo hCirinos MD Primary Care Provider [phone] Moiz Mcnally MD Unavailable [phone] Bridgett Gonzales DIRECTOR LEARNING AND DEVELOPMENT Unavailable [phone] Ynes Rocha COAL INSPECTOR Unavailable Unavailab Terrance Hdez Unavailable Unavailable Reason for Visit * Reason Comments Follow-up Encounter Details Date Type Department Care Team (Late st Contact Info) Description 01/04/2025 Patient Outreach POPULATION HEALTH [address] [facility], [address] [place] [address] Terrance Corral Follow-up Social History [...] were you homeless or living in a intermediate (including now)? No 01/04/2025 CAGE ASSESSMENT Answer [...] t zeb in the morning (EYE-DIRECTOR OF EMAIL MARKETING) to steady your nerves or to get rid of a hangover? 0 12/05/2024 CAGE Questionnaire Score 0 025 Utilities Answer Date Recorded In the past 12 months has th e [employer], gas, oil, or water company threatened to shut off services in your home? No 01/04/2025 Sex and Gender Information Value Date Recorded Sex Assigned at Not on file Legal Sex Male 6:38 PM EDT Gender Identity Not on file Sexual Orientation Not on file documented as of this encounter Miscellaneous Notes * Progress Notes - Terrance Corral - 01/04/2025 3:02 PM EDT CHW outreached pt, as pt had asked CHW to call back after pt had time to talk to his . Pt reported that it had slipped his mind. Pt denied any immediate needs, but reported again that he is hesitant to accept any help before discussing with his . CHW will outreach again at a later date. documented in this encounter Plan of Treatment Upcoming Encounters Date Type Department Care Team (Late st Contact Info) Description 01/24/2025 8:30 AM EDT Office Visit [facility] Multidisciplinary Oncology Clinic [address] [place] [address] Nito Balderas MD [address] [place] [address] documented as of this encounter Goals Goal [...] documented as of this encounter Care Teams Yarn Weight And Strength Tester Relationship Specialty Start Date End Date Raimundo Chirinos MD [address] [place] [address] PCP - General 11/18/21 Moiz Mcnally MD [address] [place] [address] Surgeon Neurosurgery 11/18/21 Bridgett Gonzales APRN [address] [place] [address] Nurse Practitioner Neurosurgery 01/07/22 Ynes Rocha LPN [facility] TCM Nurse 12/27/24 Terrance Corral Community Health Worker 12/27/24 documented as of this encounter
--- OUTSIDE RECORDS SUMMARY | 2025-01-16 08:51 | XMS_ITS | Encounter Summary ---
Author Organization [facility] Address [address] [place] [address] Care Team Providers Care Rod Finisher Name Role Phone Raimundo Chirinos MD Primary Care Provider [phone] Moiz Mcnally MD Unavailable [phone] Bridgett Gonzales CEMENT FINISHER HELPER Unavailable [phone] Ynes Rocha STATION TENDER Unavailable Unavailab Terrance Hdez Unavailable Unavailable Reason for Visit * Reason Comments Follow-up Encounter Details Date Type Department Care Team (Late st Contact Info) Description 01/09/2025 Patient Outreach POPULATION HEALTH [address] [facility], [address] [place] [address] Terrance Corral Follow-up Social History [...] drink first t zeb in the morning (EYE-RESISTOR INSPECTOR) to steady your nerves or to get rid of a hangover? 0 12/05/2024 CAGE Questionnaire Score 0 025 Utilities Answer Date Recorded In the past 12 months has th e [email or web address], gas, oil, or water company threatened to shut off services in your home? No 01/04/2025 Sex and Gender Information Value Date Recorded Sex Assigned at Not on file Legal Sex Male 6:38 PM EDT Gender Identity Not on file Sexual Orientation Not on file documented as of this encounter Miscellaneous Notes * Progress Notes - Terrance Corral - 01/09/2025 10:57 AM EDT CHW attempted to outreach pt to offer assistance regarding SDOH needs, as pt was initially hesitantand wanted to discuss with their spouse before accepting help. CHW left vm. documented in this encounter Plan of Treatment Upcoming Encounters Date Type Department Care Team (Late st Contact Info) Description 01/24/2025 8:30 AM EDT Office Visit [facility] Multidisciplinary Oncology Clinic [address] [place] [address] Nito Balderas MD [address] [place] [phone] documented as of this encounter Goals Goal [...] documented as of this encounter Care Teams Rod Finisher Relationship Specialty Start Date End Date Raimundo Chirinos MD [address] [place] [address] PCP - General 11/18/21 Moiz Mcnally MD [address] [place] [address] Surgeon Neurosurgery 11/18/21 Bridgett Gonzales APRN [address] [place] [address] Nurse Practitioner Neurosurgery 01/07/22 Ynes Rocha LPN [facility] TCM Nurse 12/27/24 Terrance oCrral Community Health Worker 12/27/24 documented as of this encounter
--- OUTSIDE RECORDS SUMMARY | 2025-01-16 08:51 | XMS_ITS | Encounter Summary ---
Author Organization [facility] Address [address] [place] [address] Care Team Providers Care County Sheriff Name Role Phone Raimundo Chirinos MD Primary Care Provider [phone] Moiz Mcnally MD Unavailable [phone] Bridgett Gonzales CRAB BACKER Unavailable [phone] Encounter Details Date Type Department Care Team (Late st Contact Info) Description 12/03/2024 Orders Only External Location [address] [place] [address] Thomas Hood PA [address] [place] [address] Social History Tobacco Use Types [...] time in the past 12 m [facility], were you homeless or living in a correction (including now)? No 12/06/2024 CAGE ASSESSMENT Answer [...] drink first t zeb in the morning (EYE-CLAMP CARRIER OPERATOR) to steady your nerves or to [...] 01/24/2025 8:30 AM EDT Office Visit [facility] Multidisciplinary Oncology Clinic [address] [place] [address] Nito Balderas MD [address] [place] [address] documented as of this encounter Procedures Procedure [...] documented as of this encounter Care Teams County Sheriff Relationship Specialty Start Date End Date Raimundo Chirinos MD [address] [facility] [address] [place] [address] PCP - General 11/18/21 Moiz Mcnally MD [address] [place] [address] Surgeon Neurosurgery 11/18/21 Bridgett Gonzales APRN [address] [place] [address] Nurse Practitioner Neurosurgery 01/07/22 documented as of this encounter
--- OUTSIDE RECORDS SUMMARY | 2025-01-16 08:52 | XMS_ITS | Encounter Summary ---
Author Organization [facility] Address [address] [place] [address] Care Team Providers Care Junior Database Administrator Name Role Phone Raimundo Chirinos MD Primary Care Provider [phone] Moiz Mcnally MD Unavailable [phone] Bridgett Gonzales APPLICATION PERFORMANCE ENGINEER Unavailable [phone] Ynes Rocha LPN Unavailable Unavailab Terrance Hdez Unavailable Unavailable Encounter Details Date Type Department Care Team (Latest Contact Info) Description 01/02/2025 Travel Social History Tobacco Use Types Packs/Day [...] living in a intermediate (including now)? No 12/27/2024 CAGE ASSESSMENT Answer [...] drink first t zeb in the morning (EYE-RED LEAD BURNER) to steady your nerves or to get [...] Indicated 01/02/2025 8:00 PM EDT Sammy Macedo, RN * Question Answer Date of Assessment Author 1. Wish to be (Past 1 Month) No 01/02/2025 8:00 PM EDT Marcelle Sampson, RN 2. Non-Specific Active Suicidal Thoughts (Past 1 Month) No 01/02/2025 8:00 PM EDT Marcelle Sampson, RN 6. Suicidal Behavior (Lifetime) No 01/02/2025 8:00 PM EDT Marcelle Sampson, RN documented as of this encounter Plan of Treatment Upcoming Encounters Date Type Department Care Team (Late st Contact Info) Description 01/24/2025 8:30 AM EDT Office Visit [facility] Multidisciplinary Oncology Clinic [address] [place] [address] Nito Balderas MD [address] [place] [phone] documented as of this encounter Goals Goal [...] documented as of this encounter Care Teams Junior Database Administrator Relationship Specialty Start Date End Date Raimundo Chirinos MD [address] [place] [address] [address] [place] [address] PCP - General 11/18/21 Moiz Mcnally MD [address] [place] [address] Surgeon Neurosurgery 11/18/21 Bridgett Gonzales APRN [address] [place] [address] Nurse Practitioner Neurosurgery 01/07/22 Ynes Rocha LPN [facility] TCM Nurse 12/27/24 Terrance Corral Community Health Worker 12/27/24 documented as of this encounter
--- OUTSIDE RECORDS SUMMARY | 2025-01-16 08:52 | XMS_ITS | Encounter Summary ---
Author Organization [facility] Address [address] [place] [address] Care Team Providers Care Attendant Campground Name Role Phone Raimundo Chirinos MD Primary Care Provider [phone] Moiz Mcnally MD Unavailable [phone] Bridgett Gonzales COGNOS REPORT DEVELOPER Unavailable [phone] Encounter Details Date Type Department Care Team [...] any time in the past 12 m [facility], were you homeless or living in a chcf (including now)? No 12/06/2024 CAGE ASSESSMENT Answer [...] drink first t zeb in the morning (EYE-DIRECT CARE COUNSELOR) to steady your nerves or to get rid of a hangover? 0 12/05/2024 CAGE Questionnaire Score 0 025 Utilities Answer Date Recorded In the past 12 months has th e [employer], gas, oil, or water company threatened to [...] Visit [facility] Multidisciplinary Oncology Clinic [address] [place] [address] Nito Balderas MD [address] [place] [address] documented as of this encounter Visit Diagnoses Not on filedocumented in this encounter Additional Health Concerns Assessment Noted Time A fall risk assessment has been complete d for the patient 03/10/2022 9:47 AM EDT A Body Mass Index follow-up plan has been documented for the patient 12/07/2024 6:16 PM EDT documented as of this encounter Care Teams Attendant Campground Relationship Specialty Start Date End Date Raimundo Chirinos MD [address] [facility] [address] [place] [address] PCP - General 11/18/21 Moiz Mcnally MD [address] [facility] [address] [place] [address] Surgeon Neurosurgery 11/18/21 Bridgett Gonzales APRN [address] [place] [address] Nurse Practitioner Neurosurgery 01/07/22 documented as of this encounter
--- OUTSIDE RECORDS SUMMARY | 2025-01-16 08:52 | XMS_ITS ---
Author Organization [facility] Address [address] [place] [address] Care Team Providers Care Sour Bleaching Pleater Name Role Phone Raimundo Chirinos MD Primary Care Provider [phone] Moiz Mcnally MD Unavailable [phone] Bridgett Gonzales WINE SALES REPRESENTATIVE Unavailable [phone] Ynes Rocha LPN Unavailable Unavailab Terrance Hdez Unavailable Unavailable Transitional Care Management Status:Closed (Closed) Start date:12/27/2024 Enrollment date:12/27/2024 Enrollment reason:Identified using hospital discharge data End date:01/04/2025 Close reason:Patient Readmitted Overview This episode type is for outpatient care managers enrolling patients in the [facility] Transitional Care Management program. Continued Care and Services Coordination
--- OUTSIDE RECORDS SUMMARY | 2025-01-16 08:52 | XMS_ITS | Encounter Summary ---
Author Organization [facility] Address [address] [place] [address] Care Team Providers Care Plush Cutter Name Role Phone Raimundo Chiirnos MD Primary Care Provider [phone] Moiz Mcnally MD Unavailable [phone] Bridgett Gonzales AIRCRAFT ELECTRICIAN Unavailable [phone] Reason for Visit * Reason Onset Date Comments Scheduling 12/11/2024 Encounter Details Date Type Department Care Team (Late st Contact Info) Description 12/11/2024 Telephone [facility] [address] [place] [address] Airam Man Scheduling Social History Tobacco Use [...] any time in the past 12 m [facility], were you homeless or living in a intermediate (including now)? No 12/06/2024 CAGE ASSESSMENT Answer [...] t zeb in the morning (EYE-DIRECTOR OF HOME CARE HOSPICE) to steady your nerves or to get [...] Wednesday, December 11, 2024 2:58 PM To: Subject: Secure Appointment details Hi, As discussed [...] TIME THE AFTERNOON BEFORE YOUR PROCEDURE. Location: [place] [address].Parking Garage address is [address] [place] [address] Please remember: Don't eat anything after midnight [...] avoid delays or cancellation. Park in the [facility] garage on [address] off [address]. Proceed to Level A and take the free shuttle to the second stop, [facility]. Enter through the revolving door, and go to the Registration Desk. You will be directed to the Endo suite after registration. If you cannot make it to your appointment and need to cancel/reschedule please have the courtesy rinkuall our office as soon as possible at [phone]. Airam Man [facility] Endoscopy Procedure Turbine Engine Assembler -Gastroenterology Main [facility] scheduling # [phone] (office) [phone] (fax) [email or web address] documented in this encounter Plan of Treatment Upcoming Encounters Date Type Department Care Team (Late st Contact Info) Description 01/24/2025 8:30 AM EDT Office Visit [facility] Multidisciplinary Oncology Clinic [address] [place] [address] Nito Balderas MD [address] [place] [address] documented as of this encounter Visit Diagnoses Not on filedocumented in this encounter Additional Health Concerns Assessment Noted Time A fall risk assessment has been complete d for the patient 03/10/2022 9:47 AM EDT A Body Mass Index follow-up plan has been documented for the patient 12/07/2024 6:16 PM EDT documented as of this encounter Care Teams Plush Cutter Relationship Specialty Start Date End Date Raimundo Chirinos MD [address] [place] [address] [address] [place] [address] PCP - General 11/18/21 Moiz Mcnally MD [address] [place] [address] Surgeon Neurosurgery 11/18/21 Bridgett Gonzales APRN [address] [place] [address] Nurse Practitioner Neurosurgery 01/07/22 documented as of this encounter
--- OUTSIDE RECORDS SUMMARY | 2025-01-16 08:52 | XMS_ITS | Encounter Summary ---
Author Organization [facility] Address [address] [place] [address] Care Team Providers Care Insurance Producer Name Role Phone Raimundo Chirinos MD Primary Care Provider [phone] Moiz Mcnally MD Unavailable [phone] Bridgett Gonzales INSPECTOR RECEIVING Unavailable [phone] Encounter Details Date Type Department Care Team (Late st Contact Info) Description 12/03/2024 Orders Only External Location [address] [place] [address] Thomas Hood PA [address] [place] [address] Social History Tobacco Use Types [...] time in the past 12 m [facility], were you homeless or living in a penitentiary (including now)? No 12/06/2024 CAGE ASSESSMENT Answer [...] drink first t zeb in the morning (EYE-CORPORATE ACCOUNTANT) to steady your nerves or to [...] 8:30 AM EDT Office Visit [facility] Multidisciplinary Oncology Clinic [address] [place] [address] Nito Balderas MD [address] [place] [address] documented as of this encounter Procedures Procedure [...] documented as of this encounter Care Teams Insurance Producer Relationship Specialty Start Date End Date Raimundo Chirinos MD [address] [facility] [address] [place] [address] PCP - General 11/18/21 Moiz Mcnally MD [address] [facility] [address] [place] [address] Surgeon Neurosurgery 11/18/21 Bridgett Gonzales APRN [address] [place] [address] Nurse Practitioner Neurosurgery 01/07/22 documented as of this encounter
--- OUTSIDE RECORDS SUMMARY | 2025-01-16 08:52 | XMS_ITS | Encounter Summary ---
Author Organization [facility] Address [address] [place] [address] Care Team Providers Care Group Reservations Coordinator Name Role Phone Raimundo Chirinos MD Primary Care Provider [phone] Moiz Mcnally MD Unavailable [phone] Bridgett Gonzales OUTSOLE ROUNDER Unavailable [phone] Encounter Details Date Type Department Care Team [...] living in a long-term (including now)? No 12/04/2024 Utilities Answer Date [...] [facility] Multidisciplinary Oncology Clinic [address] [place] [address] Nito Balderas MD [address] [place] [address] documented as of this encounter Visit Diagnoses Not on filedocumented in this encounter Additional Health Concerns Assessment Noted Time A fall risk assessment has been complete d for the patient 03/10/2022 9:47 AM EDT documented as of this encounter Care Teams Group Reservations Coordinator Relationship Specialty Start Date End Date Raimundo Chirinos MD [address] [place] [address] [address] [place] [address] PCP - General 11/18/21 Moiz Mcnally MD [address] [place] [address] Surgeon Neurosurgery 11/18/21 Bridgett Gonzales APRN [address] [place] [address] Nurse Practitioner Neurosurgery 01/07/22 documented as of this encounter
--- OUTSIDE RECORDS SUMMARY | 2025-01-16 08:52 | XMS_ITS | Encounter Summary ---
Author Organization [facility] Address [address] [place] [address] Care Team Providers Care Clinical Education Assistant Name Role Phone Raimundo Chirinos MD Primary Care Provider [phone] Moiz Mcnally MD Unavailable [phone] Bridgett Gonzales GAUGE MAKER APPRENTICE Unavailable [phone] Ynes Rocha LPN Unavailable Unavailab Terrance Hdez Unavailable Unavailable Encounter Details Date Type Department Care Team (Latest Contact Info) Description 01/01/2025 Travel Social History Tobacco Use Types Packs/Day [...] drink first t zeb in the morning (EYE-OVEN TENDER BAGELS) to steady your nerves or to get [...] Date of Assessment Author No Risk Indicated 01/01/2025 5:50 PM EDT Morenita Wright, RN * Question Answer Date of Assessment Author 1. Wish to be (Past 1 Month) No 01/01/2025 5:50 PM EDT Morenita Marte, RN 2. Non-Specific Active Suici sharita Thoughts (Past 1 Month) No 01/01/2025 5:50 PM EDT Doreen Marte, RN 6. Suicidal Behavior (Lifetime) No 5:50 PM EDT Morenita Marte, RN documented as of this encounter Plan of Treatment Upcoming Encounters Date Type Department Care Team (Late st Contact Info) Description 01/24/2025 8:30 AM EDT Office Visit [facility] Multidisciplinary Oncology Clinic [address] [place] [address] Nito Balderas MD [address] [place] [address] documented as of this encounter Visit Diagnoses Not on filedocumented in this encounter Additional Health Concerns Assessment Noted Time A fall risk assessment has been complete d for the patient 03/10/2022 9:47 AM EDT A Body Mass Index follow-up plan has been documented for the patient 01/03/2025 2:46 PM EDT documented as of this encounter Care Teams Clinical Education Assistant Relationship Specialty Start Date End Date Raimundo Chirinos MD [address] [place] [address] [address] [place] [address] PCP - General 11/18/21 Moiz Mcnally MD [address] [facility] [place] [address] Surgeon Neurosurgery 11/18/21 Bridgett Gonzales APRN [address] [place] [address] Nurse Practitioner Neurosurgery 01/07/22 Ynes Rocha LPN [facility]- [facility] CL[facility] TCM Nurse 12/27/24 Terrance Corral Community Health Worker 12/27/24 documented as of this encounter
--- OUTSIDE RECORDS SUMMARY | 2025-01-16 08:52 | XMS_ITS ---
Author Organization [facility] Address [address] [place] [address] Care Team Providers Care Mail Order Clerk Name Role Phone Raimundo Chirinos MD Primary Care Provider [phone] Moiz Mcnally MD Unavailable [phone] Bridgett Gonzales JIGGER CROWN POUNCING MACHINE OPERATOR Unavailable [phone] Ynes Rocha INJECTION MOLDING MACHINE SETTER Unavailable Unavailab Terrance Hdez Unavailable Unavailable Community Health Work Status:Active (Active) Start date:12/27/2024 Enrollment date:12/31/2024 Overview This episode type is for outpatient Community Health Workers enrolling patients in their program. Case Team Name Relationship Phone Terrance Corral(Responsible Staff) Community Health Worker Continued Care and Services Coordination
--- OUTSIDE RECORDS SUMMARY | 2025-01-16 08:52 | XMS_ITS | Encounter Summary ---
Author Organization [facility] Address [address] [place] [address] Care Team Providers Care Radio Artist Name Role Phone Raimundo Chirinos MD Primary Care Provider [phone] Moiz Mcnally MD Unavailable [phone] Bridgett Gonzales PACKAGING SPECIALIST Unavailable [phone] Reason for Visit * Reason Onset Date Comments Scheduling 12/12/2024 Encounter Details Date Type Department Care Team (Late st Contact Info) Description 12/12/2024 Telephone [facility] H Endoscopy [address] [place] [address] Airam Man Scheduling Social History Tobacco Use [...] any time in the past 12 m [facility], were you homeless or living in a retirement (including now)? No 12/06/2024 CAGE ASSESSMENT Answer [...] first t zeb in the morning (EYE-PROFESSOR OF FAMILY MEDICINE) to steady your nerves or to get [...] Thursday, December 12, 2024 8:33 AM To: [email or web address] Subject: Secure Appointment Information Good morning, As [...] TIME THE AFTERNOON BEFORE YOUR PROCEDURE. Location: [place] [address].Parking Garage address is [address] [place] [address] Please remember: Don't eat anything after midnight [...] avoid delays or cancellation. Park in the [facility] [place] [facility] garage on [facility] off [facility]. Proceed to Level A and take the free shuttle to the second stop, [address]. Enter through the revolving door, and go to the Registration Desk. You will be directed to the Endo suite after registration. If you cannot make it to your appointment and need to cancel/reschedule please have the courtesy tocall our office as soon as possible at [phone] Airam Man Advance Endoscopy Procedure Manufacturing Engineer -Gastroenterology Main [facility] scheduling # [phone] (office) [phone] (fax) [email or web address] documented in this encounter Plan of Treatment Upcoming Encounters Date Type Department Care Team (Late st Contact Info) Description 01/24/2025 8:30 AM EDT Office Visit [facility] [address] [place] [address] Nito Balderas MD [address] [place] [address] documented as of this encounter Visit Diagnoses Not on filedocumented in this encounter Additional Health Concerns Assessment Noted Time A fall risk assessment has been complete d for the patient 03/10/2022 9:47 AM EDT A Body Mass Index follow-up plan has been documented for the patient 12/07/2024 6:16 PM EDT documented as of this encounter Care Teams Radio Artist Relationship Specialty Start Date End Date Raimundo Chirinos MD [facility] [address] [place], [place] [id number] PCP - General 11/18/21 Moiz Mcnally MD [address] [place] [address] Surgeon Neurosurgery 11/18/21 Bridgett Gonzales APRN [address] [place] [address] Nurse Practitioner Neurosurgery 01/07/22 documented as of this encounter
--- OUTSIDE RECORDS SUMMARY | 2025-01-16 08:52 | XMS_ITS ---
Author Organization Unknown TREATMENT PLAN Planned Care Start Date Provider Encounter for Check-up [id number] [facility]
--- OUTSIDE RECORDS SUMMARY | 2025-01-16 08:52 | XMS_ITS ---
Author Organization [facility] Address [address] [place] [address] Care Team Providers Care Reconciler Name Role Phone Raimundo Chirinos MD Primary Care Provider [phone] Moiz Mcnally MD Unavailable [phone] Bridgett Gonzales MANAGER OF PMO Unavailable [phone] Ynes Rocha LPN Unavailable Unavailab Terrance Hdez Unavailable Unavailable LINK Program Status:Closed (Closed) Start date:12/26/2024 Enrollment date:12/26/2024 End date:12/26/2024 Close reason:Not Eligible Overview Patient identified for LINK program. Program was closed at the time of review. Following chart review, patient determined to be ineligible based on program criteria. Continued Care and Services Coordination
--- OUTSIDE RECORDS SUMMARY | 2025-01-16 08:53 | XMS_ITS | Encounter Summary ---
Author Organization [facility] Address [address] [place] [address] Care Team Providers Care Flight Technician Name Role Phone Raimundo Chirinos MD Primary Care Provider [phone] Moiz Mcnally MD Unavailable [phone] Bridgett Gonzales GUEST ROOM ATTENDANT Unavailable [phone] Encounter Details Date Type Department Care Team [...] any time in the past 12 m [facility], were you homeless or living in a usp (including now)? No 12/06/2024 CAGE ASSESSMENT Answer [...] drink first t zeb in the morning (EYE-ELECTRON BEAM WELDER) to steady your nerves or to get [...] Description 01/24/2025 8:30 AM EDT Office Visit [facility] Multidisciplinary Oncology Clinic [address] [place] [address] Nito Balderas MD [address] [place] [address] documented as of this encounter Visit Diagnoses Not on filedocumented in this encounter Additional Health Concerns Assessment Noted Time A fall risk assessment has been complete d for the patient 03/10/2022 9:47 AM EDT A Body Mass Index follow-up plan has been documented for the patient 12/07/2024 6:16 PM EDT documented as of this encounter Care Teams Flight Technician Relationship Specialty Start Date End Date Raimundo Chirinos MD [address] [place] [address] [address] [place] [address] PCP - General 11/18/21 Moiz Mcnally MD [address] [place] [address] Surgeon Neurosurgery 11/18/21 Bridgett Gonzales APRN [address] [place] [address] Nurse Practitioner Neurosurgery 01/07/22 documented as of this encounter
--- OUTSIDE RECORDS SUMMARY | 2025-01-16 08:53 | XMS_ITS | Encounter Summary ---
Author Organization [facility] Address [address] [place] [address] Care Team Providers Care Air Pollution Engineer Name Role Phone Raimundo Chirinos MD Primary Care Provider [phone] Moiz Mcnally MD Unavailable [phone] Bridgett Gonzales SALES DEVELOPMENT DIRECTOR Unavailable [phone] Encounter Details Date Type Department Care Team [...] living in a usp (including now)? No 12/04/2024 CAGE ASSESSMENT Answer [...] drink first t zeb in the morning (EYE-ELECTRONICS TEST ENGINEER) to steady your nerves or to get rid of a hangover? 0 12/05/2024 CAGE Questionnaire Score 0 025 Utilities Answer Date Recorded In the past 12 months has th e [employer], gas, oil, or water company threatened to [...] Description 01/24/2025 8:30 AM EDT Office Visit [place] [address] [place] [address] Nito Balderas MD [address] [place] [address] documented as of this encounter Visit Diagnoses Not on filedocumented in this encounter Additional Health Concerns Assessment Noted Time A fall risk assessment has been complete d for the patient 03/10/2022 9:47 AM EDT documented as of this encounter Care Teams Air Pollution Engineer Relationship Specialty Start Date End Date Raimundo Chirinos MD [address] [place], [place] [address] [address] [place] [address] PCP - General 11/18/21 Moiz Mcnally MD [address] [address] Surgeon Neurosurgery 11/18/21 Bridgett Gonzales APRN [address] [address] Nurse Practitioner Neurosurgery 01/07/22 documented as of this encounter
--- OUTSIDE RECORDS SUMMARY | 2025-01-16 08:53 | XMS_ITS | Encounter Summary ---
Author Organization [facility] Address [address] [place] [address] Care Team Providers Care Tank Erector Name Role Phone Raimundo Chirinos MD Primary Care Provider [phone] Moiz Mcnally MD Unavailable [phone] Bridgett Gonzales INDUSTRIAL CHEMISTRY TEACHER Unavailable [phone] Encounter Details Date Type Department Care Team [...] any time in the past 12 m [facility], were you homeless or living in [...] drink first t zeb in the morning (EYE-HOSPITAL RECRUITER) to steady your nerves or to get rid of a hangover? 0 12/05/2024 CAGE Questionnaire Score 0 025 Utilities Answer Date Recorded In the past 12 months has th e [employer], gas, oil, or water company threatened to [...] Description 01/24/2025 8:30 AM EDT Office Visit [facility] Multidisciplinary Oncology Clinic [address] [place] [address] Nito Balderas MD [address] [place] [address] documented as of this encounter Visit Diagnoses Not on filedocumented in this encounter Additional Health Concerns Assessment Noted Time A fall risk assessment has been complete d for the patient 03/10/2022 9:47 AM EDT A Body Mass Index follow-up plan has been documented for the patient 12/07/2024 6:16 PM EDT documented as of this encounter Care Teams Tank Erector Relationship Specialty Start Date End Date Raimundo Chirinos MD [address] [facility] [address] [place] [address] PCP - General 11/18/21 Moiz Mcnally MD [address] [facility] [address] [place] [address] Surgeon Neurosurgery 11/18/21 Bridgett Gonzales APRN [address] [place] [address] Nurse Practitioner Neurosurgery 01/07/22 documented as of this encounter
--- NOTE | 2025-01-16 08:54 | XR_ITS ---
FINAL REPORT CLINICAL HISTORY: CHECK FOR PANCREATIC STENTS FINDINGS: SINGLE VIEW ABDOMEN A single view of the abdomen was obtained. There is a nonobstructive bowel gas pattern. A bili stent is seen projecting in the right upper quadrant. No pancreatic stent is identified. There are no abnormally dilated loops of small bowel. No abnormal calcifications are identified. There are postoperative changes of lower lumbar fusion. IMPRESSION: Biliary stent in place. No pancreatic stent identified. Reviewed, Interpreted and Dictated by Daniel Madden MD Transcribed by Jesica Fleming Authenticated and [facility]
== END 2025-01-16 23:59 | disposition home or self-care (01) ==
PROVIDERS: PCP Internal Medicine; Visit Provider Student in an Organized Health Care Education/Training Program
DX: Z09 Encounter for follow-up examination after completed treatment for conditions other than malignant neoplasm (principal); Z96.89 Presence of other specified functional implants
CPT/HCPCS: 74018

== ENCOUNTER 2025-01-16 14:01 | Emergency (ER) | payer MEDICARE, SELFPAY ==
--- OUTSIDE RECORDS SUMMARY | 2024-12-05 19:20 | XMS_ITS | Encounter Summary ---
Author Organization [facility] Address [address] [place] [address] Care Team Providers Care Banquet Pilot Name Role Phone Raimundo Chirinos MD Primary Care Provider [phone] Moiz Mcnally MD Unavailable [phone] Bridgett Gonzales RN CHARGE Unavailable [phone] Reason for Visit * Reason Comments Abdominal Pain * Auth/Cert (Routine) Specialty Diagnoses / Procedures Referred By Pola t Referred To Contact Diagnoses Pancreatic mass Chan Antony MD [address] [place] [address] Phone: tel: fax: [facility] Inpatient [address] [place] [address] Phone: tel: Referral ID Status Reason Start Date Expiration Date Visits Re quested Visits Authorized [id number] 1 1 Encounter Details Date Type Department Care Team (Latest Contact Info) Description 12/05/2024 7:20 PM EDT - 12/07/2024 6:30 PM EDT Hospital Encounter [facility] Inpatient [address] [place] [address] Padmini Fitzpatrick MD [address] [place] [address] Chan Antony MD [address] [place] [address] Upper abdominal pain (Primary Dx); [...] any time in the past 12 m [facility], were you homeless or living in a jail (including now)? 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 0 12/05/2024 CAGE Questionnaire Score 0 025 Utilities Answer Date Recorded In the past 12 months has [employer], gas, oil, or water [employer] threatened to shut off services in your [...] GI for ERCP with [facility], referral made [phone] Outpatient Follow-Up Planned ERCP with [facility]. [facility] [...] visit and requested continued prayer. Referral From: Applications Coordinator Initiated Pastoral Care Provided For: Patient, Spouse Patient Profile: Consult Reasons: Follow up, Continuation of care Spiritual Assessment: Support Systems/ Spiritual Resources: Janey, Family, Prayer Spiritual Needs: Prayer, Spiritual support Spiritual Issues: Family concerns, Global/ social concern Interventions: Interventions Provided: Affirm acceptance and gratitude, Emotional support, Family support, Prayer,Identify confucianist/ spiritual coping, Spiritual support, Supportive Listening, Introduced Patient/Family to Applications Coordinator Services Pastoral Care Outcomes: Patient Outcomes: Is knowledgeable about [employer], Gratitude, Identifies spiritual or confucianist practices as helpful, Expresses being seen and heard, Appreciative of Applications Coordinator Support * Discharge Summary - Terrance Del Real MD - 12/07/2024 5:55 PM EDT Hospitalization Admit Date/Time: 12/05/2024 7:20 PM Admitting Attending: Chan Antony Discharge Date: 12/07/24 Discharge Attending Physician: Chan Antony MD PCP name and Address: Raimundo Chirinos MD [address] [place] [address] [address] / [place] [id number] Referring provider name and address: No referring provider defined for this encounter. Chief Concern, Brief History of Present Illness, and Hospital Course Guanako Brock is a 64 y.o. male with past history of chronic HFpEF (last EF 45-60%), pAfib (no AC), CAD s/p stents x8, HTN, smoker, and neuropathy presented to [facility] ER with the same symptoms that he was originally admitted for on 12/04. On 12/04 he was admitted for work up of his pancreatic mass, he had some concerns about insurance and left AMA. He is presenting again for the same reasons. Since he has been home his pain is ongoing. Of note, he was originally admitted after being transferred from [facility] on 12/04 for onset 2 weeks ago [...] Your Medications These medications were sent to [facility] [place] [address] oxyCODONE 5 MG immediate release tablet senna-docusate [...] GI for ERCP with [facility], referral made [phone] Outpatient Follow-Up Planned ERCP with [facility]. GI [...] x8, HTN, smoker, and neuropathy presented to [facility] ER with the same symptoms that [...] Note Guanako Brock 64 y.o. male CSN: [id number] Admission: 12/05/2024 7:20 PM Primary Problem: Pancreatic mass Deputy Court reviewed chart and spoke with the patient [...] Contact: VinodDebbie Mobile Relation: Spouse Preferred language: Amharic Exhauster needed? No Insurance: Primary Coverage Payer Plan Sponsor Code Group Number Group Name No coverage found Patient information: Primary Caregiver: Self Support System: Immediate family Daily Living Activities: Functional Status: Independent Living Arrangements: Spouse/Significant other, Family Type of Residence: Private residence, Single Level [address] [place] [phone] Smoker in the Home?: Yes Current DME: [...] Dialysis Services: None Living Will/Advance Directive/Power of Map And Chart Mounter /Guardian: Unable to assess: No Have you [...] medical history of CHF (congestive heart failure) ([facility]), Coronary artery disease, Hypertension, Lower back pain, [...] session Participants in Care Family/Caregiver Present: No Exhauster: Not Applicable Presentation Oxygen Therapy: None (Room [...] admission Level of Mobility: Ambulatory- community Mobility Bates: Independent gait without device History of Falls: [...] Mobility Bed Mobility Exam: Scooting/Bridging Level of Bates: Independent Bed Mobility Exam: Supine to Sit Level of Bates: Modified Bates Bed Mobility Exam: Sit to Supine Level of Bates: Modified independence Functional Mobility Device: No device [...] Toileting Level of Assistance: Independent Standardized Assessments [facility] 6-Click Daily Activities Help from Other: Don/Doff Regular Lower Body Clothings: None Help From Other: Bathing: None Help From Other: Toileting: None Help From Other: Don/Doff Upper Body Clothings: None Help From Other: Grooming: None Help From Other: Eating Meals: None [facility] 6 Click - Daily Activities Score: [...] medical history of CHF (congestive heart failure) ([facility]), Coronary artery disease, Hypertension, Lower back pain, [...] mobility. Participants in Care Family/Caregiver Present: No Exhauster: Not Applicable Presentation Oxygen Therapy: None (Room [...] admission Level of Mobility: Ambulatory- community Mobility Bates: Independent gait without device History of Falls: [...] Mobility Bed Mobility Exam: Scooting/Bridging Level of Bates: Independent Bed Mobility Exam: Supine to Sit Level of Bates: Modified Bates Assistive Device: Bed rails Bed Mobility Exam: Sit to Supine Level of Bates: Modified independence Assistive Device: Bed rails Transfers Transfer Exam: Sit to stand Level of Bates: Stand-by assist Physical/Nonphysical Assist: Supervision Transfer Exam: Stand to Sit Level of Bates: Stand-by assist Physical/Nonphysical Assist: Supervision Ambulation Device: [...] Level of Assistance: Standby assist Standardized Assessments [facility] 6-Clicks Mobility Assessment Difficulty patient has [...] 3-5 steps with a railing?: A little [facility] 6-Clicks Mobility Assessment Total : 22 [...] Note Guanako Brock 64 y.o. male CSN: [id number] Room/Bed 732/732A Nutrition evaluation type: assessment Reason [...] (Calculated): 25.27 Weight Evaluation: Overweight (BMI 25-29.9) Dawson Body Weight (kg): 67.3 Percent Dawson Body Weight: 109 Wt Readings from Last [...] reported 15#/9.3% wt loss x 2 weeks VEHICLE WINDOW TINTER (severe if accurate) Estimated Needs: Kcal/ K-30 Kcal Provided: 1257-3996 Kcal Needs Based On: Dawson weight (67.3 kg) Gm Protein/ Kg : 1.2-1.5 Protein Provided: 81-101 Protein Needs Based On: Dawson weight (67.3 kg) Fluid Provided: 1 ml/kcal or per MD team Metabolic Cart Study Results: Current Nutrition Intake: Diet Supplements: None Diet Order: Adult Diet Diet Texture: Regular Percent Meals Eaten (%): Establishing Diet Experience and Nutrition History: Diet Education Provided: Will monitor Pertinent home medications: Lasix, gabapentin, potassium chloride Episcopal needs: Nutrition Focused Physical Exam: Physical exam [...] weeks, 15#/9.3% wt loss x 2 weeks VEHICLE WINDOW TINTER. Status of Nutrition Diagnosis: New Nutrition Interventions [...] 11/20/2021 Added automatically from request for surgery [id number] [2] Past Surgical History: Procedure Laterality Date [...] concerns. Keara Tovar MD PGY-4 Gastroenterology Fellow [facility] Pager: [phone] [1] Past Medical History: Diagnosis Date CHF (congestive heart failure) (CMS/HCC) Coronary artery disease Hypertension Lower back pain Numbness and tingling of both feet Spinal stenosis of lumbar region with neurogenic claudication 11/20/2021 Added automatically from request for surgery [id number] [2] Past Surgical History: Procedure Laterality Date [...] (Individualized) Outcome: Ongoing, Progressing Flowsheets (Taken 12/05/2024 8570) Patient/Family-Specific Goals (Include Timeframe): Get the MRI [...] 12/05/2024 11:56 PM EDTAssociated Order(s): Consult to [facility] Images from the original note were not included. Consult to [facility] Consult performed by: Chan Antony MD Consult ordered by: Raysa Jean Baptiste PA Reason for consult: Admission Subjective Chief complaint Abdominal pain History Of Present Illness Guanako Brock is a 64 y.o. male with past history of chronic HFpEF (last EF 45-60%), pAfib (no AC), CAD s/p stents x8, HTN, smoker, and neuropathy presented to [facility] ER with the same symptoms that he was originally admitted for on 12/04. On 12/04 he was admitted for work up of his pancreatic mass, he had some concerns about insurance and left AMA. He is presenting again for the same reasons. Sincehe has been home his pain is ongoing. Of note, he was originally admitted after being transferred from [facility] on 12/04 for onset 2 weeks ago [...] 94%. Results Review {Vanishing Link Review Results :[id number] I have reviewed the latest lab and [...] Orders (From admission, onward) Start Ordered 12/05/24 3767 Adult diet Diet texture: Regular Diet effective now References: IDDSI Diet Texture Guide Question: Diet texture Answer: Regular 12/05/24 2300 Code Status Full Code [1] Past Medical History: Diagnosis Date CHF (congestive heart failure) (CMS/HCC) Coronary artery disease Hypertension Lower back pain Numbness and tingling of both feet Spinal stenosis of lumbar region with neurogenic claudication 11/20/2021 Added automatically from request for surgery [id number] [2] Past Surgical History: Procedure Laterality Date [...] FiO2 (%) Right arm -- Physical Exam [place] Coma Scale Score: 15 ED Course & [...] INR 2.5 to 3.5 Prevention of recurrent [place] INR 2.5 to 3.5 MAGNESIUM, PLASMA - [...] draw Order ID Start Status Ordering Provider [id number] 12/06/24 0400 Acknowledged CHAN ANTONY 12/07/24 0400 Scheduled ERINCHAN 12/08/24 0400 Scheduled ERIN, CHAN Galvan 12/09/24 0400 Scheduled ERIN, CHAN Galvan 12/10/24 0400 Scheduled ERIN, CHAN Galvan 12/11/24 0400 Scheduled ERIN, CHAN Galvan 12/12/24 0400 Scheduled ERIN, CHAN Galvan Acknowledged ERIN, CHAN Galvan 12/05/24 2300 Comprehensive metabolic panel Morning draw Order ID Start Status Ordering Provider [id number] 12/06/24 0400 Acknowledged ERINCHAN ELLIS 12/07/24 0400 [...] Group Completed CHAN ANTONY 12/05/242054 Consult to [facility] Medicine [facility] Once Specialty: Internal Medicine Provider: (Not yet [...] None Disposition Admit Admitting/Attending Physician: CHAN ANTONY [[id number]] Provider Care Team: [facility] [208] Are they the primary team?: Yes [1] - [1] Past Medical History: Diagnosis Date CHF (congestive heart failure) ([facility]) Coronary artery disease Hypertension Lower back pain Numbness and tingling of both feet Spinal stenosis of lumbar region with neurogenic claudication 11/20/2021 Added automatically from request for surgery [id number] [2] Past Surgical History: Procedure Laterality Date [...] 8:30 AM EDT Office Visit [facility] Mult[facility] Oncology Clinic [address] [place] [phone] Nito Balderas MD [address] [place] [id number] documented as of this encounter Procedures Procedure [...] - 23 mg/dL 12/07/2024 4:25 AM EDT [facility] Creatinine, Plasma 1.08 0.70 - 1.20 mg/dL 12/07/2024 4:25 AM EDT [facility] BUN/Creatinine Ratio 17 12/07/2024 4:25 AM EDT [facility] Sodium, Plasma 133(L) 136 - 145 mmol/L 12/07/2024 4:25 AM EDT [facility] Potassium, Plasma 4.2 3.6 - 4.9 mmol/L 12/07/2024 4:25 AM EDT [facility] Chloride, Plasma 103 97 - 107 mmol/L 12/07/2024 4:25 AM EDT [facility] CO2, Plasma 23 22 - 29 mmol/L 12/07/2024 4:25 AM EDT [facility] Anion Gap 7 6 - 16 mmol/L 12/07/2024 4:25 AM EDT [facility] Total Calcium, Plasma 8.5(L) 8.9 - 10.2 mg/dL 12/07/2024 4:25 AM EDT [facility] Total Protein 5.7(L) 6.3 - 7.9 g/dL 12/07/2024 4:25 AM EDT [facility] Albumin, Plasma 3.4(L) 3.5 - 5.2 g/dL 12/07/2024 4:25 AM EDT [facility] AST, Plasma 71(H) 10 - 50 U/L 12/07/2024 4:25 AM EDT [facility] ALT, Plasma 88(H) 10 - 50 U/L 12/07/2024 4:25 AM EDT [facility] Alkaline Phosphatase, Plasma 99 40 - 115 U/L 12/07/2024 4:25 AM EDT [facility] Total Bilirubin, Plasma 1.0 0.2 - 1.1 mg/dL 12/07/2024 4:25 AM EDT [facility] eGFRcr 76.6 mL/min/1.7 3m*2 12/07/2024 4:25 AM EDT [facility] Comment:Reported eGFRcr in m L/min/1.73m2 is based the CKD-EPI 2020 equation that does not use a race coefficient. Blood Venous blood specimen / Unknown Venipuncture / Unknown 12/07/2024 3:38 AM EDT 12/07/2024 3:54 AM EDT Chan Antony MD LAB BLOOD ORDERABLES Final Result [facility] [address] [place] [address] * (ABNORMAL) CBC and Differential (12/07/2024 3:38 AM EDT) WBC Count 8.59 3.70 - 10.30 10*3/uL LAB HEMATOLOGY METHOD 12/07/2024 4:00 AM EDT [facility] RBC Count 4.93 4.60 - 6.10 10*6/uL LAB HEMATOLOGY METHOD 12/07/2024 4:00 AM EDT [facility] HGB 13.9 13.7 - 17.5 g/dL LAB HEMATOLOGY METHOD 12/07/2024 4:00 AM EDT [facility] HCT 42.7 40.0 - 51.0 % LAB HEMATOLOGY METHOD 12/07/2024 4:00 AM EDT [facility] Platelet Count 216 155 - 369 10*3/uL LAB HEMATOLOGY METHOD 12/07/2024 4:00 AM EDT [facility] MCV 87 79 - 98 fL LAB HEMATOLOGY METHOD 12/07/2024 4:00 AM EDT [facility] MCH 28.2 26.0 - 32.0 pg LAB HEMATOLOGY METHOD 12/07/2024 4:00 AM EDT [facility] MCHC 32.6 30.7 - 35.5 g/dL LAB HEMATOLOGY METHOD 12/07/2024 4:00 AM EDT [facility] RDW 16.8(H) 11.5 - 14.5 % LAB HEMATOLOGY METHOD 12/07/2024 4:00 AM EDT [facility] MPV 11.0 8.8 - 12.5 fL LAB HEMATOLOGY METHOD 12/07/2024 4:00 AM EDT [facility] nRBC 0.0 <=0.0 per 100 WBCs LAB HEMATOLOGY METHOD 12/07[facility]24 [facility] Differential Type Automated LAB HEMATOLOGY METHOD 12/07/2024 4:00 AM EDT [facility] Neutrophils % 73 % LAB HEMATOLOGY METHOD 12/07/2024 4:00 AM EDT [facility] Lymphocytes % 17 % LAB HEMATOLOGY METHOD 12/07[facility]2024 [facility] Monocytes % 7 % LAB HEMATOLOGY METHOD 12/07/2024 4:00 AM EDT [facility] Eosinophils % 2 % LAB HEMATOLOGY METHOD 12/07/2024 4:00 AM EDT [facility] Basophils % 1 % LAB HEMATOLOGY METHOD 12/07/2024 4:00 AM EDT [facility] Immature Granulocytes % 0 % LAB HEMATOLOGY METHOD 12/07/2024 4:00 AM EDT [facility] Neutrophils Absolute 6.30(H) 1.60 - 6.10 10*3/uL LAB HEMATOLOGY METHOD 12/07/2024 4:00 AM EDT [facility] Lymphocytes Absolute 1.43 1.20 - 3.90 10*3/uL LAB HEMATOLOGY METHOD 12/07/2024 4:00 AM EDT [facility] Monocytes Absolute 0.62 0.30 - 0.90 10*3/uL LAB HEMATOLOGY METHOD 12/07/2024 4:00 AM EDT [facility] Eosinophils Absolute 0.15 0.00 - 0.50 10*3/uL LAB HEMATOLOGY METHOD 12/07/2024 4:00 AM EDT [facility] Basophils Absolute 0.06 0.00 - 0.10 10*3/uL LAB HEMATOLOGY METHOD 12/07/2024 4:00 AM EDT [facility] Immature Granulocytes Absolute 0.03 0.00 - 0.06 10*3/uL LAB HEMATOLOGY METHOD 12/07/2024 4:00 AM EDT [facility] Blood Venous blood specimen / Unknown Venipuncture / Unknown 12/07/2024 3:38 AM EDT 12/07/2024 3:56 AM EDT Narrative [facility] - 12/07/2024 4:00 AM EDT Therapeutic decision making should be based on absolute values, rather than percentages. us Chan Antony MD LAB BLOOD ORDERABLES Final Result Performing Organization Address City/State/[facility] Co de Phone Number [facility] [address] [place] [phone] * MRCP w and wo IV Contrast [...] using the following sequences: coronal single shot [id number] fast spin echo, axial T2 weighted sequences [...] - 23 mg/dL 12/06/2024 6:37 AM EDT [facility] Creatinine, Plasma 1.00 0.70 - 1.20 mg/dL 12/06/2024 6:37 AM EDT [facility] BUN/Creatinine Ratio 19 12/06/2024 6:37 AM EDT [facility] Sodium, Plasma 141 136 - 145 mmol/L 12/06/2024 6:37 AM EDT [facility] Potassium, Plasma 3.9 3.6 - 4.9 mmol/L 12/06/2024 6:37 AM EDT [facility] Chloride, Plasma 112(H) 97 - 107 mmol/L 12/06/2024 6:37 AM EDT [facility] CO2, Plasma 21(L) 22 - 29 mmol/L 12/06/2024 6:37 AM EDT [facility] Anion Gap 8 6 - 16 mmol/L 12/06/2024 6:37 AM EDT [facility] Total Calcium, Plasma 7.7(L) 8.9 - 10.2 mg/dL 12/06/2024 6:37 AM EDT [facility] Total Protein 5.3(L) 6.3 - 7.9 g/dL 12/06/2024 6:37 AM EDT [facility] Albumin, Plasma 3.1(L) 3.5 - 5.2 g/dL 12/06/2024 6:37 AM EDT [facility] AST, Plasma 25 10 - 50 U/L 12/06/2024 6:37 AM EDT [facility] Comment:Hemolyzed, result ma y be falsely increased. ALT, Plasma 34 10 - 50 U/L 12/06/2024 6:37 AM EDT [facility] Alkaline Phosphatase, Plasma 68 40 - 115 U/L 12/06/2024 6:37 AM EDT [facility] Total Bilirubin, Plasma 0.9 0.2 - 1.1 mg/dL 12/06/2024 6:37 AM EDT [facility] eGFRcr 84.0 mL/min/1.7 3m*2 12/06/2024 6:37 AM EDT [facility] Comment:Reported eGFRcr in m L/min/1.73m2 is based the CKD-EPI 2020 equation that does not use a race coefficient. Blood Venous blood specimen / Unknown Venipuncture / Unknown 12/06/2024 5:45 AM EDT 12/06/2024 6:16 AM EDT Chan Antony MD LAB BLOOD ORDERABLES Final Result [facility] [address] [place], [place] [id number] * (ABNORMAL) CBC and Differential (12/06/2024 5:45 AM EDT) WBC Count 7.69 3.70 - 10.30 10*3/uL LAB HEMATOLOGY METHOD 12/06/2024 6:20 AM EDT [facility] RBC Count 4.79 4.60 - 6.10 10*6/uL LAB HEMATOLOGY METHOD 12/06/2024 6:20 AM EDT [facility] HGB 13.7 13.7 - 17.5 g/dL LAB HEMATOLOGY METHOD 12/06/2024 6:20 AM EDT [facility] HCT 41.4 40.0 - 51.0 % LAB HEMATOLOGY METHOD 12/06/2024 6:20 AM EDT [facility] Platelet Count 205 155 - 369 10*3/uL LAB HEMATOLOGY METHOD 12/06/2024 6:20 AM EDT [facility] MCV 86 79 - 98 fL LAB HEMATOLOGY METHOD 12/06/2024 6:20 AM EDT [facility] MCH 28.6 26.0 - 32.0 pg LAB HEMATOLOGY METHOD 12/06/2024 6:20 AM EDT [facility] MCHC 33.1 30.7 - 35.5 g/dL LAB HEMATOLOGY METHOD 12/06/2024 6:20 AM EDT [facility] RDW 16.8(H) 11.5 - 14.5 % LAB HEMATOLOGY METHOD 12/06/2024 6:20 AM EDT [facility] MPV 11.2 8.8 - 12.5 fL LAB HEMATOLOGY METHOD 12/06/2024 6:20 AM EDT [facility] nRBC 0.0 <=0.0 per 100 WBCs LAB HEMATOLOGY METHOD 12/06/2024 6:20 AM EDT [facility] Differential Type Automated LAB HEMATOLOGY METHOD 12/06/2024 6:20 AM EDT [facility] Neutrophils % 68 % LAB HEMATOLOGY METHOD 12/06/2024 6:20 AM EDT [facility] Lymphocytes % 21 % LAB HEMATOLOGY METHOD 12/06/2024 6:20 AM EDT [facility] Monocytes % 7 % LAB HEMATOLOGY METHOD 12/06/2024 6:20 AM EDT [facility] Eosinophils % 3 % LAB HEMATOLOGY METHOD 12/06/2024 6:20 AM EDT [facility] Basophils % 1 % LAB HEMATOLOGY METHOD 12/06/2024 6:20 AM EDT [facility] Immature Granulocytes % 0 % LAB HEMATOLOGY METHOD 12/06/2024 6:20 AM EDT [facility] Neutrophils Absolute 5.32 1.60 - 6.10 10*3/uL LAB HEMATOLOGY METHOD 12/06/2024 6:20 AM EDT [facility] Lymphocytes Absolute 1.58 1.20 - 3.90 10*3/uL LAB HEMATOLOGY METHOD 12/06/2024 6:20 AM EDT [facility] Monocytes Absolute 0.54 0.30 - 0.90 10*3/uL LAB HEMATOLOGY METHOD 12/06/2024 6:20 AM EDT [facility] Eosinophils Absolute 0.19 0.00 - 0.50 10*3/uL LAB HEMATOLOGY METHOD 12/06/2024 6:20 AM EDT [facility] Basophils Absolute 0.04 0.00 - 0.10 10*3/uL LAB HEMATOLOGY METHOD 12/06/2024 6:20 AM EDT [facility] Immature Granulocytes Absolute 0.02 0.00 - 0.06 10*3/uL LAB HEMATOLOGY METHOD 12/06/2024 6:20 AM EDT [facility] Blood Venous blood specimen / Unknown Venipuncture / Unknown 12/06/2024 5:45 AM EDT 12/06/2024 6:16 AM EDT Narrative [facility] - 12/06/2024 6:20 AM EDT Therapeutic decision making should be based on absolute values, rather than percentages. Chan Antony MD LAB BLOOD ORDERABLES Final Result Performing Organization Address [facility] Co de Phone Number [facility] [address] [place] [address] * (ABNORMAL) Cancer antigen 19-9 (12/05/2024 11:19 PM EDT) CA 19.9 158(H) <36 U/mL 12/06/2024 4:09 AM EDT [facility] Blood Venous blood specimen / Unknown Venipuncture / Unknown 12/05/2024 11:19 PM EDT 12/05/2024 11:23 PM EDT Narrative [facility] - 12/06/2024 4:09 AM EDT Performed by Luiza electrochemiluminescent immunoassay. Results obtained with different test methods or kits cannot be used interchangeably. Chan Antony MD LAB BLOOD ORDERABLES Final Result Performing Organization Address City/[facility] Co de Phone Number [facility] [address] [place] [phone] * (ABNORMAL) PT-INR (12/05/2024 8:08 PM EDT) Prothrombin Time 15.5(H) 12.0 - 14.3 sec 12/05/2024 8:25 PM EDT [facility] INR 1.2(H) 0.9 - 1.1 12/05/2024 8:25 PM EDT [facility] Blood Venous blood specimen / Unknown [...] INR 2.5 to 3.5 Prevention of recurrent [place] INR 2.5 to 3.5 us Raysa CAMARILLO LAB BLOOD ORDERABLES Final R esult Performing Organization Address City/[facility]/ZIP Co de Phone Number [facility] [address] [place] [address] * Lactic acid, venous (12/05/2024 8:08 PM EDT) Lactate, Venous, Whole Blood 1.1 0.5 - 2.2 mmol/L LAB HEMATOLOGY METHOD 12/05/2024 8:18 PM EDT [facility] Blood Venous blood specimen / Unknown Venipuncture / Unknown 12/05/2024 8:08 PM EDT 12/05/2024 8:13 PM EDT us Raysa CAMARILLO LAB BLOOD ORDERABLES Final R esult Performing Organization Address City/[facility] Co de Phone Number [facility] [address] [place] [address] * (ABNORMAL) Lipase (12/05/2024 8:08 PM EDT) Lipase, Plasma 599(H) 19 - 63 U/L 12/05/2024 8:40 PM EDT [facility] Blood Venous blood specimen / Unknown Venipuncture / Unknown 12/05/2024 8:08 PM EDT 12/05/2024 8:13 PM EDT us Raysa CAMARILLO LAB BLOOD ORDERABLES Final R esult [facility] [address] [place] [phone] * (ABNORMAL) CBC w/diff (12/05/2024 8:08 PM EDT) [facility] WBC Count 10.84(H) 3.70 - 10.30 10*3/uL LAB HEMATOLOGY METHOD 12/05/2024 8:16 PM EDT [facility] RBC Count 5.59 4.60 - 6.10 10*6/uL LAB HEMATOLOGY METHOD 12/05/2024 8:16 PM EDT [facility] HGB 15.9 13.7 - 17.5 g/dL LAB HEMATOLOGY METHOD 12/05/2024 8:16 PM EDT [facility] HCT 47.8 40.0 - 51.0 % LAB HEMATOLOGY METHOD 12/05/2024 8:16 PM EDT [facility] Platelet Count 235 155 - 369 10*3/uL LAB HEMATOLOGY METHOD 12/05/2024 8:16 PM EDT [facility] MCV 86 79 - 98 fL LAB HEMATOLOGY METHOD 12/05/2024 8:16 PM EDT [facility] MCH 28.4 26.0 - 32.0 pg LAB HEMATOLOGY METHOD 12/05/2024 8:16 PM EDT [facility] MCHC 33.3 30.7 - 35.5 g/dL LAB HEMATOLOGY METHOD 12/05/2024 8:16 PM EDT [facility] RDW 16.7(H) 11.5 - 14.5 % LAB HEMATOLOGY METHOD 12/05/2024 8:16 PM EDT [facility] MPV 10.6 8.8 - 12.5 fL LAB HEMATOLOGY METHOD 12/05/2024 8:16 PM EDT [facility] nRBC 0.0 <=0.0 per 100 WBCs LAB HEMATOLOGY METHOD 12/05/2024 8:16 PM EDT [facility] Differential Type Automated LAB HEMATOLOGY METHOD 12/05/2024 8:16 PM EDT [facility] Neutrophils % 82 % LAB HEMATOLOGY METHOD 12/05/2024 8:16 PM EDT [facility] Lymphocytes % 11 % LAB HEMATOLOGY METHOD 12/05/2024 8:16 PM EDT [facility] Monocytes % 6 % LAB HEMATOLOGY METHOD 12/05/2024 8:16 PM EDT [facility] Eosinophils % 1 % LAB HEMATOLOGY [...] ORDERABLES Final R esult [facility] [address] [place] [id number] * Magnesium (12/05/2024 8:08 PM EDT) Magnesium, Plasma 2.2 1.9 - 2.4 mg/dL 12/05/2024 8:39 PM EDT [facility] Blood Venous blood specimen / Unknown Venipuncture / Unknown 12/05/2024 8:08 PM EDT 12/05/2024 8:13 PM EDT us Rays[facility]AR[facility] LAB BLOOD ORDERABLES Final R esult [facility] [address] [place] [address] * (ABNORMAL) CMP (12/05/2024 8:08 PM EDT) Glucose, Plasma 126(H) 74 - 99 mg/dL 12/05/2024 8:39 PM EDT [facility] BUN, Plasma 21 8 - 23 mg/dL 12/05/2024 8:39 PM EDT [facility] Creatinine, Plasma 1.12 0.70 - 1.20 mg/dL 12/05/2024 8:39 PM EDT [facility] BUN/Creatinine Ratio 19 12/05/2024 8:39 PM EDT [facility] Sodium, Plasma 139 136 - 145 mmol/L 12/05/2024 8:39 PM EDT [facility] Potassium, Plasma 3.9 3.6 - 4.9 mmol/L 12/05/2024 8:39 PM EDT [facility] Chloride, Plasma 103 97 - 107 mmol/L 12/05/2024 8:39 PM EDT [facility] CO2, Plasma 24 22 - 29 mmol/L 12/05/2024 8:39 PM EDT [facility] Anion Gap 12 6 - 16 mmol/L 12/05/2024 8:39 PM EDT [facility] Total Calcium, Plasma 9.2 8.9 - 10.2 mg/dL 12/05/2024 8:39 PM EDT [facility] Total Protein 6.6 6.3 - 7.9 g/dL 12/05/2024 8:39 PM EDT [facility] Albumin, Plasma 3.8 3.5 - 5.2 g/dL 12/05/2024 8:39 PM EDT [facility] AST, Plasma 33 10 - 50 U/L 12/05/2024 8:39 PM EDT [facility] ALT, Plasma 49 10 - 50 U/L 12/05/2024 8:39 PM EDT [facility] Alkaline Phosphatase, Plasma 85 40 - 115 U/L 12/05/2024 8:39 PM EDT [facility] Total Bilirubin, Plasma 1.6(H) 0.2 - [...] ORDERABLES Final R esult [facility] [address] [place] [address] documented in this encounter Visit Diagnoses Diagnosis [...] documented as of this encounter Care Teams Banquet Pilot Relationship Specialty Start Date End Date Raimundo Chirinos MD [address] [place] [address] [address] [place] [address] PCP - General 11/18/21 Moiz Mcnally MD [address] [facility] [place] [address] Surgeon Neurosurgery 11/18/21 Bridgett Gonzales APRN [address] [place] [address] Nurse Practitioner Neurosurgery 01/07/22 documented as of this encounter
--- OUTSIDE RECORDS SUMMARY | 2024-12-20 06:31 | XMS_ITS | Encounter Summary ---
Author Organization [facility] Address [address] [id number] Care Team Providers Care Platform Consultant Name Role Phone Raimundo Chirinos MD Primary Care Provider [phone] Moiz Mcnally MD Unavailable [phone] Bridgett Gonzales LEAD APPLIER Unavailable [phone] Reason for Referral * Imaging (Routine) - Closed Specialty Diagnoses / Procedures Referred By Pola black Referred To Contact Gastroenterology Diagnoses Mass of head of pancreas Procedures ERCP Darian Jaramillo MD [address] [facility] [address] [place] [address] Phone: tel: fax: Referral ID Status Reason Start Date Expiration Date V isits Requested Visits Authorized [id number] Closed Specialty Services Required 12/11/2024 06/12/2026 1 1 * Imaging (Routine) - Closed Specialty Diagnoses / Procedures Referred By Pola black Referred To Contact Gastroenterology Diagnoses Mass of head of pancreas Procedures EUS (Upper) Kiko Ball MD [address] [place] [address] Phone: tel: fax: Referral ID Status Reason Start Date Expiration Date V isits Requested Visits Authorized [id number] Closed Specialty Services Required 12/04/2024 06/05/2026 1 1 Reason for Visit * Imaging (Routine) - Closed Specialty Diagnoses / Procedures Referred By Pola black Referred To Contact Gastroenterology Diagnoses Mass of head of pancreas Procedures ERCP Darian Jaramillo MD [address] [address] Phone: tel: fax: Referral ID Status Reason Start Date Expiration Date V isits Requested Visits Authorized [id number] Closed Specialty Services Required 12/11/2024 06/12/2026 1 1 Encounter Details Date Type Department Care Team (Latest Contact Info) Description 12/20/2024 6:31 AM EDT - 12/20/2024 7:35 AM EDT Hospital Encounter [facility] [address] [place] [address] Darian Jaramillo MD [id number] [place] [address] Acute pancreatitis, unspecified complication status, unspecified pancreatitis type (Primary Dx); Mass of head of pancreas [...] the money to buy more. Never true 12/28/19 25 Within the past 12 months, t he food you bought just didn't last and you didn't have money to get more. Never true 12/27/2024 PRAPARE - Transportation Answer Date Re corded In the past 12 months, has l ack of transportation kept you from medical appointments or from getting medications? No 08/2024 In the past 12 months, has l ack of transportation kept you from meetings, work, or from getting things needed for daily living? No 12/27/2024 Housing Stability Vital Sign Answer Uriel e Recorded In the last 12 months, was t here a time when you were not able to pay the mortgage or rent on time? No 12/27/2024 In the past 12 months, how m any times have you moved where you were living? 0 12/27/2024 At any time in the [facility], were you homeless or living in a retirement (including now)? No 12/27/2024 CAGE ASSESSMENT Answer Date Recorded Cage unable [...] drink first t zeb in the morning (E[employer] SERVICES INSTRUCTOR) to steady your nerves or to get rid of a hangover? 0 12/05/2024 CAGE Questionnaire Score 0 025 Utilities Answer Date Recorded In the past 12 months has th e electric, gas, oil, or water company threatened to shut off services in your home? No 12/27/2024 Sex and Gender Information Value Date Recorded Sex Assigned at Not on file Legal Sex Male 6:38 PM EDT Gender Identity Not on file Sexual Orientation Not on file documented as of this encounter Last Filed Vital Signs Vital Sign Reading Time Taken Comments Blood Pressure 104/87 12/20/2024 10:45 AM EDT Pulse 95 12/20/2024 10:45 AM EDT Temperature 36.1 C (97 F) 12/20/2024 9:50 AM EDT Respiratory Rate 0 12/20/2024 10:45 AM EDT Oxygen Saturation 96% 12/20/2024 10:45 AM EDT Inhaled Oxygen Concentration - - Weight 71.3 kg (157 lb 3 oz) 12/20/2024 6:58 AM EDT Height 167.6 cm (5' 6 ) 12/20/2024 6:58 AM EDT Body Mass Index 25.37 12/20/2024 6:58 AM EDT documented in this encounter Functional Status * Calculated C-SSRS Risk Score (Lifetime/Recent) Answer Date of Assessment Author No Risk Indicated 12/25/2024 4:00 PM EDT Edmar Fernandez RN * Question Answer Date of Assessment Author 1. Wish to be (Past 1 Month) No 025 4:00 PM EDT Edmar Fernandez RN 2. Non-Specific Active Suici sharita Thoughts (Past 1 Month) No 12/25/2024 4:00 PM EDT Ambar Fernandez RN 6. Suicidal Behavior (Lifetime) No 5 4:00 PM EDT Edmar Fernandez RN documented as of this encounter Medications at Time of Discharge senna-docusate sodium (Senokot-S) 8.6-50 MG tablet Take 1 tablet by mouth 2 times a day as needed for constipation. 60 tablet 2 12/07/2024 furosemide (Lasix) 40 MG tablet Take 2 tablets by mouth every other day. 12/07/2024 gabapentin (Neurontin) 300 MG capsule Take 1 capsule by mouth 4 times a day. oxyCODONE (Roxicodone) 5 MG immediate release tablet Take 1 tablet by mouth every 4 hours as needed for severe pain. 42 tablet 12/07/2024 5 potassium chloride CR (Klor-Con M20) 20 MEQ ER tablet Take 2 tablets by mouth every other day. With furosemide 12/07/2024 documented as of this encounter Miscellaneous Notes * H&P - Darian Jaramillo MD - 12/20/2024 7:30 AM EDT Gastroenterology, Hepatology and Nutrition Pre-Endoscopy History & Physical Patient: Guanako Brock Date of : 1960 Attending: No att. providers found Date of Visit: December 20, 2024 Chief Complaint/Reason for Visit: EUS +/- ERCP for recent history of pancreatitis with transiently elevated TBili and MRI/MRCP showing possible UOP mass vs. Prior pancreatitis. SUBJECTIVE: History of Present Illness: Mr. Guanako Brock is a 64 y.o. male here today for EUS & ERCP. He has a past medical historyof A-fib (CMS/HCC), CHF (congestive heart failure) (CMS/HCC), Coronary artery disease, Hypertension, Lower back pain, Numbness and tingling of both feet, and Spinal stenosis of lumbar region with neurogenic claudication (11/20/2021). Mr. Guanako Brock is NPO. His last solid food was last night. He reports no previous adverse reactions with anesthesia or sedation. Anticoagulation and antiplatelet medications: none Last dose: not applicable He has never been diagnosed with a bleeding or clotting disorder. He denies previous surgery on hisesophagus, stomach, small bowel. He denies dysphagia. ROS: Negative except as per HPI Allergies[1] Current Outpatient Medications Medication Instructions furosemide (LASIX) 80 mg, Oral, Every other day gabapentin (NEURONTIN) 300 mg, 4 times daily oxyCODONE (ROXICODONE) 5 mg, Oral, Every 4 hours PRN potassium chloride CR (Klor-Con M20) 20 MEQ ER tablet 40 mEq, Oral, Every other day, With furosemide senna-docusate sodium (Senokot-S) 8.6-50 MG tablet 1 tablet, Oral, 2 times daily PRN Past Medical History[2] Surgical History[3] Family History[4] Social History[5] OBJECTIVE: Physical Exam: General Appearance: Patient in no distress. Alert, awake and oriented x 3 Eyes: Anicteric, EOMI Neck: Neck supple Lungs: Lungs clear to auscultation, no wheezing, rales, rhonchi Heart: Regular rate and rhythm Abdomen: Abdomen soft, non-tender. Bowel sounds normal. No rebound or guarding. Laboratory/Imaging/Pathology: No results for input(s): HGB , PLT , APTT , INR , PTT , BILITOT , BILIDIR in the last 72 hours. ASSESSMENT & PLAN: Mr. Guanako Brock is a 64 y.o. male here today for EUS & ERCP. He has a past medical historyof A-fib ([facility]), CHF (congestive heart failure) ([facility]), Coronary artery disease, Hypertension, Lower back pain, Numbness and tingling of both feet, and Spinal stenosis of lumbar region with neurogenic claudication (11/20/2021). 1) EUS +/- ERCP for recent history of pancreatitis with transiently elevated TBili and MRI/MRCP showing possible UOP mass vs. Prior pancreatitis. PLAN: - Continue NPO - PIV - Obtain consent - Proceed with plans for EUS & ERCP - The risks, benefits, potential complications, limitations and alternatives to the procedure were discussed, including but not limited to pain, bloating, bleeding, infection, perforation, clinical deterioration, pancreatitis, aspiration, cardiopulmonary and cerebrovascular events, need for emergency surgery and even . The informed consent was signed by myself and the patient. Darian Jaramillo MD [1] Allergies Allergen Reactions Atorvastatin Hallucinations Happens with brand name only [2] Past Medical History: Diagnosis Date A-fib (CMS/HCC) CHF (congestive heart failure) ([facility]) Coronary artery disease Hypertension Lower back pain Numbness and tingling of both feet Spinal stenosis of lumbar region with neurogenic claudication 11/20/2021 Added automatically from request for surgery [id number] [3] Past Surgical History: Procedure Laterality Date CORONARY STENT PLACEMENT KNEE RECONSTRUCTION, MEDIAL PATELLAR FEMORAL LIGAMENT Left 1969 LUMBAR LAMINECTOMY Bilateral 12/11/2021 Posterolateral arthrodesis L3-L4, L4-L5, L5-S1; L4-L5 discectomy and TLIF by Dr. Mcnally TONSILLECTOMY [4] Family History Problem Relation Name Age of Onset Cancer Sister [5] Social History Socioeconomic History Marital status: Tobacco Use Smoking status: Every Day Current packs/day: 0.50 Average packs/day: 0.5 packs/day for 48.0 years (24.0 ttl pk-yrs) Types: Cigarettes Smokeless tobacco: Never Vaping Use Vaping status: Never Used Substance and Sexual Activity Alcohol use: Never Drug use: Yes Frequency: 3.0 times per week Types: Marijuana Comment: every two or three days Sexual activity: Defer Other Topics Concern Occupational Exposure No Social Drivers of Health Food Insecurity: No Food Insecurity (12/06/2024) Hunger Vital Sign Worried About Running Out of Food in the Last Year: Never true Ran Out of Food in the Last Year: Never true Recent Concern: Food Insecurity - Food Insecurity Present (12/04/2024) Hunger Vital Sign Worried About Running Out of Food in the Last Year: Sometimes true Ran Out of Food in the Last Year: Sometimes true Transportation Needs: No Transportation Needs (12/06/2024) PRAPARE - Transportation Lack of Transportation (Medical): No Lack of Transportation (Non-Medical): No Intimate Partner Violence: Not At Risk (12/06/2024) Humiliation, Afraid, Rape, and Kick questionnaire Fear of Current or Ex-Partner: No Emotionally Abused: No Physically Abused: No Sexually Abused: No Housing Stability: Unknown (12/06/2024) Housing Stability Vital Sign Unable to Pay for Housing in the Last Year: No Homeless in the Last Year: No * Marlen Cuenca RN - 12/20/2024 6:57 AM EDT Images from the original note were not included. [id number] Endoscopy Unit: Caring for Yourself after an Endoscopic Ultrasound (EUS) What precautions do I need to take after my procedure? You will get a medicine that makes you sleep during treatment. It may affect you for the next 24 hours. ? Do not drive or go home alone. Someone must be with you until you get home. ? For 24 hours, do not make legal decisions, drive, or use dangerous equipment. ? You may continue taking your home medicines, unless your doctor tells you otherwise. When can I eat or drink? You may eat your normal diet, unless otherwise told by your doctor. Start with a small amount of bland foods and add other foods as tolerated. Spicy or greasy foods may cause nausea. How active can I be? You should move around as you are able. Do your normal activities if you feel you can. Sexual activity is fine, unless your doctor tells you otherwise. How do I find out my biopsy results? If you had a biopsy, it may take 7-10 days for results. These will be available in the patient portal, [employer]. Or you can call the doctor who ordered your procedure. When should I call the doctor? Call 911 right away or go to the nearest emergency department if you have any of these: ? Difficulty breathing ? Severe pain in the throat ? Severe pain in the chest or belly ? Vomiting that does not go away ? Fever of 101??F or higher ? Redness or tenderness of the IV site that lasts longer than 48 hours ? Any other symptoms that concern you These may be related to a complication and need medical attention. If you do not tell your doctor, the problem may get worse. Our contact information: For the Endoscopy Provider, call and ask for the Endoscopy Fellow on-call. * Camille AlcazarROXY - Marlen Galeana RN - 12/20/2024 6:57 AM EDT Images from the original note were not included. [id number] Endoscopy Unit: Caring for Yourself after an Endoscopic Retrograde Cholangiopancreatography (ERCP) What precautions do I need to take after my procedure? You will get a medicine that makes you sleep during treatment. It may affect you for the next 24 hours. ? Do not drive or go home alone. Someone must be with you until you get home. ? For 24 hours, do not make legal decisions, drive, or use dangerous equipment. ? You may continue taking your home medicines unless your doctor tells you otherwise. When can I eat or drink? You may eat as you normally would, unless otherwise told by your doctor. Start with a small amount of bland foods. Then move on to your normal foods as tolerated. Spicy or greasy foods may increase your chance of nausea due to the medicines you received during the procedure. How active can I be? You should move around as you are able. Do your normal activities if you feel you can. Sexual activity is fine unless your doctor tells you otherwise. How do I find out my biopsy results? If you had a biopsy, it may take 7-10 days for biopsy results. These results will be available in the patient portal, [employer], or you can call the doctor who ordered your procedure. When should I call the doctor? Call 911 right away or go to the nearest emergency department if you have any of these: ? Difficulty breathing ? Severe pain in the throat ? Severe pain in the chest or belly ? Vomiting that does not go away ? Fever of 101??F or higher ? Yellow skin or eyes ? Blood in your stool ? Redness or tenderness of the IV site that lasts longer than 48 hours ? Any other worrisome symptoms These may be related to a complication and need medical attention. If you do not tell your doctor, the problem may get worse. Our contact information: For the Endoscopy Provider, call and ask for the Endoscopy Fellow on-call. * Camille Gilbert - Marlen Galeana RN - 12/20/2024 6:57 AM EDT Images from the original note were not included. [id number] Anesthesia: General Anesthesia You?re due to have surgery. During surgery, you?ll be given medicine called anesthesia or anesthetic. This will keep you comfortable and pain-free. Your anesthesia provider will use general anesthesia . You are watched continuously during your procedure by your anesthesia provider. What is general anesthesia? General anesthesia puts you into a state like deep sleep. It goes into the bloodstream (IV anesthetics), into the lungs (gas anesthetics),or both. You feel nothing during the procedure. You won't remember it either. During the procedure, the anesthesia provider monitors you continuously. They trackyour heart rate and rhythm, blood pressure, breathing, and blood oxygen. ? IV anesthetics. IV anesthetics are given through an IV (intravenous) line in your arm. They?re often given first. This is so you're asleep before a gas anesthetic is started. Some kinds of IV anesthetics ease pain. Others relax you. Your healthcare provider will decide which kind is best in your case. ? Gas anesthetics. Gas anesthetics are breathed into the lungs. They're often used to keep you asleep. They can be given through a face mask. Or they can be given through a tube placed in your voice box (larynx) or breathing tube (trachea). o Face mask. Your anesthesia provider will most likely place the face mask over your nose and mouthwhile you?re still awake. You?ll breathe oxygen through the mask as your IV anesthetic is started. Gas anesthetic may be added through the mask. o Tube in the larynx or trachea. The tube will be inserted into your throat after you?re asleep. Anesthesia tools and medicines You will likely have: ? IV anesthetics. These are put into an IV line into your bloodstream. ? Gas anesthetics. You breathe these anesthetics into your lungs. Then they pass into your bloodstream. ? Pulse oximeter. This is a small clip that's attached to the end of your finger. It measures your blood oxygen level. ? Electrocardiography leads (electrodes). These are small sticky pads that are placed on your chest. They record your heart rate and rhythm. ? Blood pressure cuff. This reads your blood pressure. Risks and possible complications General anesthesia has some risks. These include: ? Breathing problems ? Upset stomach (nausea) and vomiting ? Sore throat or hoarseness (usually temporary) ? Allergic reaction to the anesthetic ? Irregular heartbeat (rare) ? Cardiac arrest (rare) Anesthesia safety ? Follow any directions you're given for not eating or drinking before your procedure. ? Tell your healthcare provider what medicines you take. This includes prescription and bqrv-tfi-qttutap medicines. It also includes vitamins, herbs, and other supplements. You'll be asked when thosewere last taken. ? Have a trusted adult drive you home after the procedure. ? For the first 24 hours after your surgery: o Don't drive or use heavy equipment. o Don't make important decisions or sign legal documents. If important decisions or signing legal documents is necessary during the first 24 hours after surgery, have a trusted family member or spouse act on your behalf. o Don't drink alcohol. o Have a responsible adult stay with you. They can watch for problems and help keep you safe. Last Reviewed Date: 2023 00:00:00 ?? [id number] [employer]. All rights reserved. This information is not intended as a substitute for professional medical care. Always follow your healthcare professional's instructions. documented in this encounter Plan of Treatment Upcoming Encounters Date Type Department Care Team (Late st Contact Info) Description 01/24/2025 8:30 AM EDT Office Visit [facility] Mult[facility] [address] [place] [phone] Nito Balderas MD [address] [place] [phone] documented as of this encounter Procedures Procedure Name Priority Date/Time Associated Diagnosis Comments EUS (UPPER) Routine 12/20/2024 9:46 AM EDT Mass of head of pancreas ERCP Routine 12/20/2024 9:46 AM EDT Mass of head of pancreas FINE NEEDLE ASPIRATION - CYTOLOGY Routine 12/20/2024 8:21 AM EDT Mass of head of pancreas SURGICAL PATHOLOGY EXAM Routine 12/20/2024 8:10 AM EDT Mass of head of pancreas documented in this encounter Results * ERCP (12/20/2024 9:46 AM EDT) Anatomical Region Laterality Modality Endoscopy Addenda Addendum by Darian Jaramillo MD on 12/20/2024 10:09 AM EDT Table formatting from the original result was not included. Impression Prior to introduction of the duodenoscope, anodizer image was obtained. This showed no foreign bodies in the RUQ. This di show lumbar spinal hardware. The duodenoscope was advanced, via mouth to the second portion of the duodenum. The small bowel had an extreme amount of motility. Two doses of 0.5 mg IV glucagon did not improve the motility. Cannulation was attempted but ultimately unsuccessful as ampullary visualization was not possible due to motility. Bile was seen freely flowing from the ampullary os, when transient visualization was possible. Recommendations Other See EUS report for full recommendations. Indication Mass of head of pancreas Medications See anesthesia record for anesthesia administered medications. 500 mg IV Levaquin 100 mg NE indomethacin 1.0 mg IV glucagon (given as two doses of 0.5 mg) Staff Staff Role Sae Barriga MD Anesthesiologist Darian Jaramillo MD Proceduralist Pascual Dunlap, Dominic Umana CRNA Endo Dermatology Technician Pedro Luis Henry RN Endo Nurse Preprocedure A history and physical has been performed, and patient medication allergies have been reviewed. The patient's tolerance of previous anesthesia has been reviewed. The risks and benefits of the procedure and the sedation options and risks were discussed with the patient. All questions were answered and informed consent obtained. Details of the Procedure The patient underwent general anesthesia, which was administered by an anesthesia professional. The patient's blood pressure, heart rate, level of consciousness, oxygen saturation and respirations were monitored throughout the procedure. The scope was introduced through the mouth and advanced to the second part of the duodenum. Insufflated with carbon dioxide. Clinical intention was achieved. The patient's estimated blood loss was minimal. The procedure was not difficult. The patient tolerated the procedure well. Fluoroscopy was administered by Gastroenterology provider. Fluoroscopy was administered for 0.1 minutes. Attestation I personally performed the entire procedure Specimens ID Type Source Tests Collected by Time A : Gastric Bx Tissue Stomach SURGICAL PATHOLOGY EXAM Darian Jaramillo MD 12/20/2024 0810 B : HOP Mass FNA Fine Needle Aspirate Pancreas FINE NEEDLE ASPIRATION - CYTOLOGY Darian Jaramillo MD 12/20/2024 0821 Implants Implants Implant Type Site Status Size Editing User Findings Prior to introduction of the duodenoscope, anodizer image was obtained. This showed no foreign bodies in the RUQ. This di show lumbar spinal hardware. The duodenoscope was advanced, via mouth to the second portion of the duodenum. The small bowel had an extreme amount of motility. Two doses of 0.5 mg IV glucagon did not improve the motility. Cannulation was attempted but ultimately unsuccessful as ampullary visualization was not possible due to motility. Bile was seen freely flowing from the ampullary os, when transient visualization was possible. us Darian Jaramillo MD GI PROCEDURE ORDERABLES Reynaldo heath Result - Final * EUS (Upper) (12/20/2024 9:46 AM EDT) Anatomical Region Laterality Modality Endoscopy Narrative 12/20/2024 10:25 AM EDT Table formatting from the original result was not included. Impression The upper third of the esophagus, middle third of the esophagus and lower third of the esophagus appeared normal. Mild, patchy edematous, erythematous and friable mucosa with erosion in the cardia, fundus of the stomach, body of the stomach, incisura, antrum, prepyloric region and pylorus, suggestive of gastritis; no bleeding was observed; performed cold forceps biopsy The duodenal bulb and 2nd part of the duodenum appeared normal. In the head of the pancreas, the CBD narrowed from about 6 mm to < 1 mm. There was a heterogeneous and irregular mass-like area of abnormal pancreatic parenchyma measuring 26 mm x 26 mm with poorly defined and irregular margins was visualized in the pancreas. This was not typical for tumor but was at least concerning for possible tumor and so 3 fine needle biopsy passes were taken with a 22 gauge Olympus EzShot needle using a transduodenal approach guided by Doppler. A sample was sent for cytology analysis. Onsite construction inspector was not present Recommendations Await pathology results Levofloxacin 500 mg PO qDay x 5 days. This medication has been sent to your local pharmacy. Your first dose will be tomorrow (12/21/24) Do not run or exercise strenuously while taking this medication. Liquid diet for the next 4 hrs. If tolerating liquid diet without pain over the next 4 hrs., may resume previous diet later today Should you develop fevers or chills associated with yellow eyes, yellow skin, itching or dark urine, present immediately to your nearest emergency center and make them aware you have had these symptoms and have a history of biliary obstruction. Monitor for signs of bleeding and if any vomiting of red blood, dark blood, clots, coffee ground-like material, stool with red blood, or dark black, tarry, sticky stools present immediately to your nearest emergency department and make them aware of this procedure. Resume previous activity tomorrow Discharge home today, with escort Discussed with patient and his and they would prefer to not schedule any reattempts at ERCP now and instead watch for any signs of biliary obstruction. We discussed signs and symptoms fo this. They report Dr. Chirinos in [place] can see him regularly, if any of these occur. Indication Mass of head of pancreas Medications See anesthesia record for anesthesia administered medications. 500 mg IV Levaquin 100 mg NE indomethacin 1.0 mg IV glucagon (given as two doses of 0.5 mg) Staff Staff Role Sae Barriga MD Anesthesiologist Darian Jaramillo MD Proceduralist Pascual Dunlap, Dominic Umana CRNA Endo Dermatology Technician Pedro Luis Henry RN Endo Nurse Preprocedure A history and physical has been performed, and patient medication allergies have been reviewed. The patient's tolerance of previous anesthesia has been reviewed. The risks and benefits of the procedure and the sedation options and risks were discussed with the patient. All questions were answered and informed consent obtained. Details of the Procedure The patient underwent general anesthesia, which was administered by an anesthesia professional. The patient's blood pressure, heart rate, level of consciousness, oxygen saturation and respirations were monitored throughout the procedure. The gastroscope was introduced through the mouth and advanced to the second part of the duodenum. Retroflexion was performed in the cardia and fundus. Ultrasound examination of the gastric and duodenal regions was performed using a linear scope. The patient's estimated blood loss was minimal. The procedure was not difficult. The patient tolerated the procedure well. Attestation I personally performed the entire procedure Specimens ID Type Source Tests Collected by Time A : Gastric Bx Tissue Stomach SURGICAL PATHOLOGY EXAM Darian Jaramillo MD 12/20/2024 0810 B : HOP Mass FNA Fine Needle Aspirate Pancreas FINE NEEDLE ASPIRATION - CYTOLOGY Darian Jaramillo MD 12/20/2024 0821 Implants Implants Implant Type Site Status Size Editing User Findings The upper third of the esophagus, middle third of the esophagus and lower third of the esophagus appeared normal. Mild, patchy edematous, erythematous and friable mucosa with erosion in the cardia, fundus of the stomach, body of the stomach, incisura, antrum, prepyloric region and pylorus, suggestive of gastritis; no bleeding was observed; performed cold forceps biopsy The duodenal bulb and 2nd part of the duodenum appeared normal. Heterogeneous and irregular mass measuring 26 mm x 26 mm with poorly defined and irregular margins was visualized in the pancreas; 3 fine needle biopsy passes were taken with a 22 gauge Olympus EzShot needle using a transduodenal approach guided by Doppler. A sample was sent for cytology analysis. Onsite construction inspector was not present us Kiko Ball MD GI PROCEDURE ORDERABLES Final Re sult * Fine needle aspiration (12/20/2024 8:21 AM EDT) Case Report Cytology Case: [id number] Authorizing Provider: Darian Jaramillo MD Collected: 12/20/2024 0821 Ordering Location: [facility] Received: 12/20/2024 1104 Pathologist: Carol Hyman MD Specimen: Pancreas, Fine Needle Aspiration, HEAD OF PANCREAS MASS, ENDOSCOPIC ULTRASOUND GUIDED FINE NEEDLE ASPIRATION 12/21/2024 4:16 PM EDT [facility] Final Diagnosis A. HEAD OF PANCREAS MASS, ENDOSCOPIC ULTRASOUND GUIDED FINE NEEDLE ASPIRATION: - SCANT MARKEDLY ATYPICAL CELLS, MOST COMPATIBLE WITH ADENOCARCINOMA (SEE COMMENT). 12/21/2024 4:16 PM EDT [facility] at 1616 EDT Comment Clinical and imaging correlation is suggested. 12/21/2024 4:16 PM EDT [facility] Intradepartmental Consultation with Agreement Dr. Dayami Marks 12/21/2024 4:16 PM EDT [facility] Immediate Evaluation FNA performed by Dr. Jaramillo Number of sticks: Not provided This service has been rendered in part by a resident. A pathologist has personally reviewed the slides/tissue and has rendered and is responsible for diagnosis for the diagnosis that appears on the report. 12/21/2024 4:16 PM EDT [facility] Gross Description A. HEAD OF PANCREAS MASS, ENDOSCOPIC ULTRASOUND GUIDED FINE NEEDLE ASPIRATION 10 ml's tinted Needle rinse fluid processed as ThinPrep and cellblock for complete evaluation of sample. Slides were NOT received Cold Time: 4h 39m 12/21/2024 4:16 PM EDT [facility] Note: A resident was involved in the service. I attest I examined the relevant preparations for the specimens and confirmed the diagnosis or interpretation. 12/21/2024 4:16 PM EDT [facility] Clinical Information K86.89 - Mass of head of pancreas [ICD-10-CM] 12/21/2024 4:16 PM EDT [facility] Fine Needle Aspirate Pancreatic structure / Unknown 12/20/2024 8:21 AM EDT 12/20/2024 11:04 AM EDT us Darian Jaramillo MD LAB CYTOLOGY ORDERABLES Fin al Result Performing Organization Address [facility] de Phone Number [facility] [address] [place] [address] * Surgical Pathology Exam (12/20/2024 8:10 AM EDT) Case Report Surgical Pathology Case: [id number] Authorizing Provider: Darian Jaramillo MD Collected: 12/20/2024 0810 Ordering [facility]: [facility] Endoscopy Received: 12/20/2024 1014 Pathologist: Jet Mike MD Specimen: Stomach, Gastric Bx 12/21/2024 9:37 AM EDT [facility] Final Diagnosis STOMACH, BIOPSY: - NO PATHOLOGIC ABNORMALITY - NO EVIDENCE OF HELICOBACTER-L CARLOTA ORGANISMS ON ROUTINE STAIN 12/21/2024 9:37 AM EDT [facility] at 0937 EDT Clinical Information K86.89 - Mass of head of pancreas [ICD-10-CM] 12/21/2024 9:37 AM EDT [facility] Gross Description A. GASTRIC BX Received in formalin labeled gastric biopsy are 4 swanson-brown soft tissue fragments measuring 0.2-0.4 cm in greatest dimension. Entirely submitted in cassette A1. Cold Time: <1m Eve Palmer 12/21/2024 9:37 AM EDT [facility] Tissue Stomach structure / Unknown 12/20/2024 8:10 AM EDT 12/20/2024 10:14 AM EDT us Darian Jaramillo MD LAB PATHOLOGY ORDERABLES Fi nal Result Performing Organization Address [facility] Co de Phone Number [facility] [address] [place] [address] documented in this encounter Visit Diagnoses Diagnosis Acute pancreatitis, unspecified complication status, unspecified pancreatitis type- Primary Mass of head of pancreas documented in this encounter Administered Medications Inactive Administered Medications - up to 3 most recent administrations Medication Order MAR Action Action Date Dose Rate Site indomethacin (Indocin) suppository Rectal, As needed, Starting on Ana Maria 12/20/24 at 0835, Until Ana Maria 12/20/24 at 0835, Routine, Intraprocedure Given 12/20/2024 8:35 AM EDT 100 mg documented in this encounter Additional Health Concerns Assessment Noted Time A fall risk assessment has been complete d for the patient 03/10/2022 9:47 AM EDT A Body Mass Index follow-up plan has been documented for the patient 12/07/2024 6:16 PM EDT documented as of this encounter Care Teams Platform Consultant Relationship Specialty Start Date End Date Raimundo Chirinos MD [address] [place] [address] [address] [place] [address] PCP - General 11/18/21 Moiz Mcnally MD [address] [place] [address] Surgeon Neurosurgery 11/18/21 Bridgett Gonzales APRN [address] [place] [phone] Nurse Practitioner Neurosurgery 01/07/22 documented as of this encounter
--- OUTSIDE RECORDS SUMMARY | 2024-12-20 07:36 | XMS_ITS | Encounter Summary ---
Author Organization Healthcare Address [address] [place] [address] Care Team Providers Care Java Security Engineer Name Role Phone Raimundo Chirinos MD Primary Care Provider [phone] Moiz Mcnally MD Unavailable [phone] Br[address] Gonzales BLADE GRADER OPERATOR Unavailable [phone] Encounter Details Date Type Department Care Team (Latest Contact Info) Description 12/20/2024 7:36 AM EDT - 12/20/2024 11:59 PM EDT Hospital Encounter [facility] [address] [place] [address] History of ERCP Discharge Disposition: Home or [...] any time in the past 12 m [facility], were you homeless or living in a usp (including now)? No 12/27/2024 CAGE ASSESSMENT Answer [...] drink first t zeb in the morning (EYE-REALTY LOAN SPECIALIST) to steady your nerves or to get [...] Description 01/24/2025 8:30 AM EDT Office Visit [facility] Multidisciplinary Oncology Clinic [address] [place] [phone] Nito Balderas MD [address] [place] [address] documented as of this encounter Procedures Procedure [...] documented as of this encounter Care Teams Java Security Engineer Relationship Specialty Start Date End Date Raimundo Chirinos MD [address] [place] [address] [address] [place] [address] PCP - General 11/18/21 Moiz Mcnally MD [address] [facility] [place] [address] Surgeon Neurosurgery 11/18/21 Bridgett Gonzales APRN [address] [place] [address] Nurse Practitioner Neurosurgery 01/07/22 documented as of this encounter
--- OUTSIDE RECORDS SUMMARY | 2024-12-20 07:53 | XMS_ITS | Encounter Summary ---
Author Organization [facility] Address [address] [place] [address] Care Team Providers Care Laser Printing Operator Name Role Phone Raimundo Chirinos MD Primary Care Provider Moiz Mcnally MD Unavailable [phone] Bridgett Gonzales AGENCY DIRECTOR Unavailable [phone] Encounter Details Date Type Department Care Team (Late st Contact Info) Description 12/20/2024 7:53 AM EDT Anesthesia Event [facility] [address] [place] [address] Sae Barriga MD [address] [place] [id number] Pascual Dunlap, ARMATURE WINDER HELPER REPAIR [address] [place] [phone] Anesthesia Record Procedure Summary Procedure Name Responsible [...] No change to dentition. ; Placed by: ARMATURE WINDER HELPER REPAIR; Removal Date: 12/20/24; Removal Time: 0942 12/20/24 0800 by Pascual Dunlap CRNA 12/20/24 0942 by Pascual Dunlap, ARMATURE WINDER HELPER REPAIR documented in this encounter Social History Tobacco [...] any time in the past 12 m [facility], were you homeless or living in a long-term (including now)? 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 0 12/05/2024 CAGE Questionnaire Score 0 025 Utilities Answer Date Recorded In the past 12 months has [employer], gas, oil, or water [employer] threatened to shut off services in your [...] during procedure: OR Anesthesiologist: Sae Barriga MD ARMATURE WINDER HELPER REPAIR: Pascual Dunlap CRNA Performed: ARMATURE WINDER HELPER REPAIR Patient Condition Indications for airway management: anesthesia [...] 7:52 AM EDT Anesthesiologist: Sae Barriga MD ARMATURE WINDER HELPER REPAIR: Pascual Dunlap CRNA Patient: Guanako Brock HPI [...] Cardio (+) Essential hypertension (+) Paroxysmal A-fib ([facility]/HCC) /Renal (+) ELDER (acute kidney injury) ([facility]) ALLERGIES Allergies[1] NPO STATUS Date of [...] 12/07/2024 ABG Lab Results Component Value Date [id number] 24 12/11/2021 LACTATE 1.2 12/11/2021 Lab Results Component Value Date PH 7.26 (L) 12/11/2021 PCO2 53 (H) 12/11/2021 PO2 274 12/11/2021 [id number] 100.0 (H) 12/11/2021 BASEEXC -4.4 (L) 12/11/2021 HCTSYR 49.1 12/11/2021 KSYR 4.4 12/11/2021 CLSYR 112 (H) 12/11/2021 GLUSYR 99 12/11/2021 CAION 4.5 (L) 12/11/2021 LACTATE 1.2 12/11/2021 ECHO No echocardiogram results found for the past 12 months PFTs No results found for: VVY6CZF , INR3BSKU , IMY2VUW , FVCPRED BP Readings from Last 5 [...] Plan ASA 3 Plan was reviewed with: ARMATURE WINDER HELPER REPAIR Anesthesia technique(s) discussed with the patient/family: general [...] 11/20/2021 Added automatically from request for surgery [id number] [3] [4] [5] Past Surgical History: Procedure [...] EDT [facility] Visit [facility] [address] [place] [phone] Nito Balderas MD [address] [place] [id number] documented as of this encounter Procedures Procedure Name Priority Date/Time Associated Diagnosis Comments PB ANESTHESIA PLACEHOLDER Routine 12/20/2024 8:00 AM EDT MI AN ELECTIVE ENDOTRACHEAL AIRWAY Routine 12/20/2024 8:00 AM EDT documented in this encounter Results * MI AN ELECTIVE ENDOTRACHEAL AIRWAY, PB ANESTHESIA PLACEHOLDER (12/20/2024 8:00 AM EDT) Narrative Pascual Dunlap CRNA - 12/20/2024 8:00 AM EDT Pascual Dunlap CRNA 12/20/2024 8:05 AM Airway Date/Time: 12/20/2024 8:00 AM Reason: elective Airway not difficult General Information and Staff Patient location during procedure: OR Anesthesiologist: Sae Barriga MD ARMATURE WINDER HELPER REPAIR: Pascual Dunlap CRNA Performed: ARMATURE WINDER HELPER REPAIR Patient Condition Indications for airway management: anesthesia [...] documented as of this encounter Care Teams Laser Printing Operator Relationship Specialty Start Date End Date Raimundo Chirinos MD [facility] [address] [place] [address] PCP - General 11/18/21 Moiz Mcnally MD [address] [place] [phone] Surgeon Neurosurgery 11/18/21 Bridgett Gonzales APRN [address] [place] [address] Nurse Practitioner Neurosurgery 01/07/22 documented as of this encounter
--- OUTSIDE RECORDS SUMMARY | 2024-12-25 07:53 | XMS_ITS | Encounter Summary ---
Author Organization [facility] Address [address] [id number] Care Team Providers Care Outreach Specialist Name Role Phone Raimundo Chirinos MD Primary Care Provider [phone] Moiz Mcnally MD Unavailable [phone] Bridgett Gonzales MACHINE GUIDE BASE WINDER Unavailable [phone] Purvi Foy RN Unavailable Unavailab le Reason for Referral * Consultation (Routine) - Authorized Specialty Diagnoses / Procedures Referred By Contac t Referred To Contact Family Medicine Diagnoses Malignant neoplasm of body of pancreas (CMS/HCC) Iesha Pride MD [address] [place] [address] Phone: tel: fax: Referral ID Status Reason Start Date Expiration Date V isits Requested Visits Authorized [id number] Authorized 12/26/2024 06/27/2026 1 1 * Consultation (Routine) - Authorized Specialty Diagnoses / Procedures Referred By Contact Referred To Contact Medical Oncology / Hematology and Oncology Diagnoses Malignant neoplasm of pancreas, unspecified location of malignancy (CMS/HCC) Jason Albarran MD [address] [facility] [address] [place] [address] Phone: tel: fax: [facility] Multidisciplinary Oncology Clinic [address] [place] [address] Phone: tel: fax: Referral ID Status Reason Start Date Expiration Date Visits Requested Visits Authorized [id number] Authorized Specialty Services Required 12/26/2024 06/27/2026 1 1 * Consultation (Routine) - Authorized Specialty Diagnoses / Procedures Referred By Contac t Referred To Contact Surgical Oncology / Hematology and Oncology Diagnoses Acute pancreatitis, unspecified complication status, unspecified pancreatitis type Pancreatic mass Omar Barnhart MD [address] Phone: tel: fax: Referral ID Status Reason Start Date Expiration Date Visits Requested Visits Authorized [id number] Authorized Specialty Services Required 12/25/2024 06/26/2026 1 1 * Consultation (Routine) - Authorized Specialty Diagnoses / Procedures Referred By Contact Referred To Contact Medical Oncology / Hematology and Oncology Diagnoses Acute pancreatitis, unspecified complication status, unspecified pancreatitis type Pancreatic mass Omar Barnhart MD [address] [place] [address] Phone: tel:[phone] fax:[phone] [facility] Multidisciplinary Oncology [facility] [address] [place] [address] Phone: tel: fax: Referral ID Status Reason Start Date Expiration Date Visits Requested Visits Authorized [id number] Authorized Specialty Services Required 12/25/2024 06/26/2026 1 1 Scheduling Instructions New Pancreatic Mass Reason for Visit * Reason Comments Pain * Auth/Cert (Routine) Specialty Diagnoses / Procedures Referred By Contac t Referred To Contact Diagnoses Malignant neoplasm of pancreas, unspecified location of malignancy (CMS/HCC) Bulmaro Fong MD [address] [place], [place] [id number] Phone: tel: fax: [facility] Emergency Department [address] [place] [address] Phone: tel: Referral ID Status Reason Start Date Expiration Date Visits Re quested Visits Authorized [id number] 1 1 Encounter Details Date Type Department Care Team (Latest Contact Info) Description 12/25/2024 7:53 AM EDT - 12/26/2024 5:05 PM EDT Hospital Encounter [facility] Emergency Department [address] [place] [id number] Danny Lucio MD [address] [place] [address] Bulmaro Fong MD [address] [place] [address] Iesha Pride MD [address] [place] [address] Malignant neoplasm of pancreas, unspecified [...] any time in the past [address] [facility], were you homeless or living in a long-term (including now)? 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 30 tablet 12/26/2024 furosemide (Lasix) 40 MG tablet Take 1 tablet by mouth daily as needed. gabapentin (Neurontin) 300 MG capsule Take 1 capsule by mouth 4 times a day. metoprolol succinate XL (Toprol-XL) 25 MG 24 hr tablet Take 1 tablet by mouth daily. Do not crush or chew. 30 tablet 12/26/2024 5 naloxone (Narcan) 4 mg/0.1 mL nasal spray [...] needed for constipation. 60 tablet 2 12/07/2024 oxyCODONE (Roxicodone) 5 MG immediate release tablet [...] Discharge Date: 12/26/2024 Discharge Attending Physician: Iesha Pride MD PCP name and Address: Raimundo Chirinos MD [address] [place] [address] [address] / [facility] Referring provider name and address: No referring [...] the mass - We will have our [facility] nurse navigators work with him to [...] that he does not need it. His [id number] is at least 2 PLAN - I [...] Your Medications These medications were sent to [facility] [address] [place], [place] [address] [id number] [address] [facility] [id number] aspirin 81 MG EC tablet metoprolol succinate [...] Time Provider Department Center 01/24/2025 8:30 AM Nito Balderas MD [facility] Test Results Pending At [...] the mass - We will have our [facility] nurse navigators work with him to [...] that he does not need it. His [id number] is at least 2 PLAN - I [...] Symptoms Outcome: Ongoing, Progressing * H&P - [place], Shoaib J, MD - 12/25/2024 3:39 PM EDT Images from the original note were not included. [facility] Department of Surgery Division of Surgical Oncology [...] x8, and hypertension who presented to the [facility] on 12/25/2024 withconcerns for intractable nausea, vomiting, [...] x8, and hypertension who presented to the [facility] on 12/25/2024 with concerns for intractable nausea, [...] Rubio Added automatically from request for surgery [id number] Dispo: Continue Current Level of Care CODE STATUS: full code This Consult, Assessment, and Plan has been discussed with Dr. Navarro, Attending Physician Shoaib Ramachandran MD General Surgery, PGY-1 Pager: [phone] 7:16 PM 12/25/2024 [1] Past Medical History: Diagnosis Date A-fib (CMS/HCC) CHF (congestive heart failure) (CMS/HCC) Coronary artery disease Hypertension Lower back pain Numbness and tingling of both feet Spinal stenosis of lumbar region with neurogenic claudication 11/20/2021 Added automatically from request for surgery [id number] [2] Allergies Allergen Reactions Atorvastatin Hallucinations Happens [...] 12/27/2024 2:12 PM EDT Associated attestation - Rnoda Bedoya MD - 12/27/2024 2:12 PM EDT [...] Reason for Consult: pancreatic adenocarcinoma Primary Service: [facility] History of Present Illness: Guanako Brock is a 64 y.o. male with a known medical history of chronic HFpEF (last EF 45-60%), pAfib (no AC), CAD s/p stents x8, HTN, smoker, and neuropathy was sent here at the request of his dean of men for biopsy proven pancreatic adenocarcinoma. Patient has been evaluated for abdominal mass in the outpatient setting. He was seen by dean of men, Dr. Jaramillo, in the outpatient setting in [...] sent here at the request of his dean of men for biopsy proven pancreatic adenocarcinoma. Pancreatic adenocarcinoma [...] Austin Jackson D.O. Hematology and Oncology Fellow [facility] [1] Past Medical History: Diagnosis Date A-fib (CMS/HCC) CHF (congestive heart failure) (CMS/HCC) Coronary artery disease Hypertension Lower back pain Numbness and tingling of both feet Spinal stenosis of lumbar region with neurogenic claudication 11/20/2021 Added automatically from request for surgery [id number] [2] Past Surgical History: Procedure Laterality Date [...] continued pain and directed by Gastroenterology. This creative writer has spoken gastroenterology who stated they do [...] 97%. Results Review {Vanishing Link Review Results :[id number] I have reviewed the latest lab and [...] unknown stage, abdominal pain, nausea, hyperbilirubinemia: Patient presented again to the emergency room with severe abdominal pain, found to have acute pancreatic mass which isadenocarcinoma on EUS on 12/20/2024. Patient has finished his course of oxycodone and Zofran at home. He also has a issues with his insurance and is unable to have insurance at this time. Thus he wasnot able to get more medication. Of note labs are notable for a total bilirubin of 2.5 although ALTand AST are from a hemolyzed specimen they [...] developing a clot and potential stroke versus NM. thus would recommend the patient being on [...] IV ANDsodium chloride AND sodium chloride * Care Plan - Maddy Lugo RN [...] and Affect: Mood normal. Behavior: Behavior normal. [place] Coma Scale Score: 15 ED Course & [...] Basic metabolic panel Morning draw Final result [facility] 12/25/24 1223 CBC and Differential Morning draw Final result [facility] 12/25/24 1223 Magnesium, Plasma Morning draw Final result [facility] 12/25/24 1223 Phosphorus Morning draw Final result [facility] 12/25/24 1223 PT/INR Morning draw Final result [facility] 12/25/24 1223 APTT Morning draw Final result [facility] 12/25/24 1223 Vitamin B12 Morning draw Final result [facility] 12/25/24 1223 Ferritin Morning draw Final result [facility] 12/25/24 1223 Iron & Total Iron Binding Capacity, Plasma (Includes Transferrin) Morning draw Final result [facility] 12/25/24 1223 Lipid panel Morning draw Final result [facility] 12/25/24 1223 Hemoglobin A1c Morning draw In process [facility] 12/25/24 1223 Cortisol Morning draw Final result [facility] 12/25/24 1223 Folate Morning draw Final result [facility] 12/25/24 1223 Hepatic Function Panel Morning draw Final result [facility] 12/25/24 1223 Intake and output Every [address] [facility] OMAR Mandy 12/25/24 1223 Ambulate patient 2 times daily Comments: Ambulate twice daily with assistance Acknowledged OMAR BARNHART Mandy 12/25/24 1223 Vital Signs Every 8 hours Placed in And Linked Group Acknowledged OBEY, OMAR A 12/25/24 1223 Pulse Oximetry Every 8 hours Placed in And Linked Group Acknowledged OBEYOMAR A 12/25/24 1223 Up in chair 3 times daily Acknowledged OMAR BARNHART A 12/25/24 1223 Daily weights Daily Acknowledged OMAR BARNHART A 12/25/[address] Abdomen Pelvis w IV Contrast Once Final result OMAR BARNHART A 12/25/[address] Chest w IV Contrast Once In process OBEYOMAR A 12/25/[address] Head wo IV Contrast Once Final result OBEYOMAR A 12/25/24 1223 Inpatient consult - Oncology Once Specialty: Oncology Provider: (Not yet assigned) Completed OBEYOMAR A 12/25/24 1223 Inpatient consult to Surgical Oncology Once Provider: (Not yet assigned) Acknowledged OBEY, OMAR Galvan 12/25/24 1223 Okay To Give Nicotine Replacement Until discontinued Acknowledged OMAR BARNHART A 12/25/24 1223 Admit to inpatient Once Acknowledged OMAR BARNHART A 12/25/24 1223 Full code Continuous Acknowledged OMAR BARNHART A 12/25/24 1223 Adult diet Diet texture: Regular Diet effective now Acknowledged OMAR BARNHART A 12/25/24 1223 Mobility Orders Until discontinued Acknowledged OMAR BARNHART A 12/25/24 1223 Notify physician (specify parameters) Until discontinued Acknowledged OBEY OMAR A 12/25/24 1223 Insert peripheral IV Once Placed in And Linked Group Acknowledged OBEY OMAR A 12/25/24 1223 Saline lock IV Once Placed in And Linked Group Acknowledged OBEY, OMAR A 12/25/24 0812 Lipase STAT Final result OMAR BARNHART 12/25/24 1024 Consult to Hospital Medicine Once Specialty: Internal Medicine Provider: (Not yet assigned) Completed OBEY OMAR Galvan 12/25/24 0812 CBC w/diff STAT Final result IZABELA POTTS 12/25/24 0812 PT-INR STAT Final result IZABELA POTTS 12/25/24 0812 CMP STAT Final result IZABELA POTTS 12/25/24 0812 Magnesium STAT Final result IZABELA POTTS 12/25/24 0812 Phosphorus STAT Final result IZABELA POTTS 12/25/24 1129 Discharge Ambulatory referral to [facility]Medical Oncology Ordered OMAR BARNHART ED Course as of 12/26/24 0827 TueDec 25, 2024 0815 Upon initial evaluation, patient is well-appearing and [...] patient. [DK] ED Course User Index [DK] zIabela Potts MD Clinical Impressions as of 12/26/24 08 Malignant neoplasm of pancreas, unspecified location of [...] and. Disposition Admit Admitting/Attending Physician: BULMARO FONG [[id number]] Provider Care Team: MONIKA MELISSA 15 [[id number]] Are they the primary team?: Yes [1] Follow-Ups: Follow up with [facility] Multidisciplinary Oncology Clinic (Hematology and [...] 11/20/2021 Added automatically from request for surgery [id number] [2] Past Surgical History: Procedure Laterality Date [...] Description 01/24/2025 8:30 AM EDT Office Visit [facility] Multidisciplinary Oncology Clinic [address] [place] [address] Nito Balderas MD [address] [place] [address] Scheduled Referrals Name Type Priority Associated Diagnoses Orde r Schedule Discharge Ambulatory referral to [facility]/Medical Oncology Outpatient Referral Routine Acute pancreatitis, unspecified complication status, unspecified pancreatitis type Pancreatic mass Expected: 12/25/2024 (Approximate), Expires: 06/27/2026 Ambulatory referral to Surgical Oncology Outpatient Referral Routine Acute pancreatitis, unspecified complication status, unspecified pancreatitis type Pancreatic mass Expected: 12/25/2024 (Approximate), Expires: 06/28/2026 Discharge Ambulatory referral to Hematology/Medical Oncology Outpatient Referral Routine Malignant neoplasm of pancreas, unspecified location of malignancy ([facility]/HCC) 1 Occurrences starting 12/26/2024 until 06/29/2026 Ambulatory [...] ADULT TRANSTHORACIC COMPLETE (12/26/2024 9:55 AM EDT) [facility] Signature BSA 1.81 m2 ALLEN ISCV Height 170.0 [...] Root Diam 31 mm ALLEN ISCV PA TN(ACCEL) 30.6 mmHg ALLEN ISCV LVLs ap2 8.8 [...] is no recent study available for direct clij-rp-jlir comparison. Left Ventricle The left ventricle is [...] is no recent study available for direct umkl-tj-wasm comparison. Result Gael Barnhart MD CV ECHO PROCEDURES Final Resul t * (ABNORMAL) CEA (12/26/2024 2:50 AM EDT) CEA, Serum 8.5(H) <4.0 ng/mL 12/26/2024 3:56 AM EDT [facility] Blood Venous blood specimen / Unknown Venipuncture / Unknown 12/26/2024 2:50 AM EDT 12/26/2024 3:17 AM EDT [facility] - 12/26/2024 3:56 AM EDT Normal range for smokers: < 5.5 ng/ml Normal range for non-smokers: <=4.0 ng/ml Performed by Luiza electrochemiluminescent immunoassay. Results obtained with different test methods or kits cannot be used interchangeably. us Omar Barnhart MD LAB BLOOD ORDERABLES Final Res ult Performing Organization Address [facility] Co de Phone Number [facility] [address] [place] [address] * (ABNORMAL) Cancer antigen 19-9 (12/26/2024 2:50 AM EDT) CA 19.9 248(H) <36 U/mL 12/26/2024 3:56 AM EDT [facility] Blood Venous blood specimen / Unknown Venipuncture / Unknown 12/26/2024 2:50 AM EDT 12/26/2024 3:17 AM EDT [facility] - 12/26/2024 3:56 AM EDT Performed by Luiza electrochemiluminescent immunoassay. Results obtained with different test methods or kits cannot be used interchangeably. us Omar Barnhart MD LAB BLOOD ORDERABLES Final Res ult Performing Organization Address City/[facility]/ZIP Co de Phone Number [facility] [address] [place] [address] * (ABNORMAL) Prealbumin (12/26/2024 2:50 AM EDT) Prealbumin, Plasma 10.0(L) 20.0 - 41.0 mg/dL 12/26/2024 3:47 AM EDT [facility] Blood Venous blood specimen / Unknown Venipuncture / Unknown 12/26/2024 2:50 AM EDT 12/26/2024 3:09 AM EDT us Iesha Pride MD LAB BLOOD ORDERABLE S Final Result Performing Organization Address [facility] Co de Phone Number [facility] [address] [place] [address] * (ABNORMAL) N-Terminal Probnp (12/26/2024 2:50 AM EDT) Pathologist [facility] N-Terminal, PROBNP, Plasma 4,363(H) 0 - 899 pg/mL 12/26/2024 3:46 AM EDT [facility] Blood Venous blood specimen / Unknown Venipuncture / Unknown 12/26/2024 2:50 AM EDT 12/26/2024 3:09 AM EDT us Omar Barnhart MD LAB BLOOD ORDERABLES Final Res ult Performing Organization Address [facility] Co de Phone Number [facility] [address] [place] [address] * (ABNORMAL) Hepatic Function Panel (12/26/2024 2:50 AM EDT) Conjugated Bilirubin, Plasma 0.6(H) <=0.3 mg/dL 12/26/2024 3:46 AM EDT [facility] Comment:Hemolyzed, result ma y be falsely decreased. Alkaline Phosphatase, Plasma 160(H) 40 - 115 U/L 12/26/2024 3:46 AM EDT [facility] Total Bilirubin, Plasma 1.8(H) 0.2 - 1.1 mg/dL 12/26/2024 3:46 AM EDT [facility] Albumin, Plasma 3.4(L) 3.5 - 5.2 g/dL 12/26/2024 3:46 AM EDT [facility] Total Protein 6.0(L) 6.3 - 7.9 g/dL 12/26/2024 3:46 AM EDT [facility] ALT, Plasma 102(H) 10 - 50 U/L 12/26/2024 3:46 AM EDT [facility] AST, Plasma 32 10 - 50 U/L 12/26/2024 3:46 AM EDT [facility] Comment:Hemolyzed, result ma y be falsely increased. Blood Venous blood specimen / Unknown Venipuncture / Unknown 12/26/2024 2:50 AM EDT 12/26/2024 3:09 AM EDT us Omar Barnhart MD LAB BLOOD ORDERABLES Final Res ult Performing Organization Address [facility] Co de Phone Number [facility] [address] [place] [address] * Folate (12/26/2024 2:50 AM EDT) Folate, Serum 5.8 >4.6 ng/mL 12/26/2024 4:05 AM EDT [facility] Blood Venous blood specimen / Unknown Venipuncture / Unknown 12/26/2024 2:50 AM EDT 12/26/2024 3:17 AM EDT us Omar Barnhart MD LAB BLOOD ORDERABLES Final Res ult Performing Organization Address [facility] de Phone Number [facility] [address] [place] [address] * Cortisol (12/26/2024 2:50 AM EDT) Cortisol 13.00 Before 10am: 3.7 - 19.4. After 5pm: 2.9 - 17.3 ug/dL 12/26/2024 4:24 AM EDT [facility] Comment:Testing performed on [employer], standardized against MCC Reference Standard concentration values assigned by LC-MS/MS and verified by BCR 192 and BCR 193 certified reference materials. Blood Venous blood specimen / Unknown Venipuncture / Unknown 12/26/2024 2:50 AM EDT 12/26/2024 3:17 AM EDT us Omar Barnhart MD LAB REF LAB BLOOD AND FLUID OR D Final Result Performing Organization Address [facility] Co de Phone Number [facility] [address] [place] [address] * (ABNORMAL) Hemoglobin A1c (12/26/2024 2:50 AM EDT) Hemoglobin A1c 6.5(H) <5.7 % 12/26/2024 10:53 AM EDT [facility] Blood Venous blood specimen / Unknown Venipuncture / Unknown 12/26/2024 2:50 AM EDT 12/26/2024 3:17 AM EDT Narrative [facility] - 12/26/2024 10:53 AM EDT HA1C Interpretive Data: Diagnosis of Diabetes: Diabetic > or = 6.5% Pre-diabetic 5.7 to 6.4% Non-diabetic < or = 5.6% Glycemic Targets for Type I and Type II Diabetics: Non- Adults <7.0% Adults <6.0% Children and Adolescents <7.5% Source: [employer]. Standards of medical care in diabetes,2017. Diabetes Care.2017:40 (suppl 1):S1-S135. us Omar Barnhart MD LAB BLOOD ORDERABLES Final Res ult Performing Organization Address [facility] Co de Phone Number [facility] [address] [place] [address] * (ABNORMAL) Lipid panel (12/26/2024 2:50 AM EDT) Cholesterol, Plasma 119 <200 mg/dL 12/26/2024 3:46 AM EDT [facility] Comment: Cholesterol Reference Range (age >17 years): Desirable <200 mg/dL Borderline 200 to 239 mg/dL Undesirable >239 mg/dL HDL 37(L) >=40 mg/dL 12/26/2024 3:46 AM EDT [facility] Comment: HDL Cholesterol Reference Ranges (age >17 years): Female, acceptable > or = 50 mg/dL Male, acceptable > or = 40 mg/dL Triglycerides, Plasma 75 <150 mg/dL 12/26/2024 3:46 AM EDT [facility] Comment: Triglyceride Reference Range (age >17 years): Desirable: <150 mg/dL Borderline high: 150 to 199 mg/dL High: 200 to 499 mg/dL Very high: >499 mg/dL Increased risk of pancreatitis: >1000 mg/dL Cholesterol/HDL Ratio 3 12/26/2024 3:46 AM EDT [facility] LDL, Calculated 67 <100 mg/dL 3:46 AM EDT [facility] Comment: LDL Cholesterol Reference [...] 12 hours? No 12/26/2024 3:46 AM EDT [facility] Blood Venous blood specimen / Unknown Venipuncture / Unknown 12/26/2024 2:50 AM EDT 12/26/2024 3:09 AM EDT us Omar Barnhart MD LAB BLOOD ORDERABLES Final Res ult [facility] [address] [place] [address] * Iron & Total Iron Binding Capacity, Plasma (Includes Transferrin) (12/26/2024 2:50 AM EDT) Iron, Plasma 56 50 - 170 ug/dL 12/26/2024 3:46 AM EDT [facility] Transferrin, Plasma 214 200 - 360 mg/dL 12/26/2024 3:46 AM EDT [facility] Total Iron Binding Capacity, Plasma 268 240 - 450 ug/mL 12/26/2024 3:46 AM EDT [facility] Transferrin Saturation 21 14 - 50 % 12/26/2024 3:46 AM EDT [facility] Blood Venous blood specimen / Unknown Venipuncture / Unknown 12/26/2024 2:50 AM EDT 12/26/2024 3:09 AM EDT us Omar Barnhart MD LAB BLOOD ORDERABLES Final Res ult Performing Organization Address City/[facility] Co de Phone Number [facility] [address] [place] [address] * Ferritin (12/26/2024 2:50 AM EDT) Ferritin, Serum 113 20 - 400 ng/mL 12/26/2024 3:56 AM EDT [facility] Blood Venous blood specimen / Unknown Venipuncture / Unknown 12/26/2024 2:50 AM EDT 12/26/2024 3:17 AM EDT us Omar Barnhart MD LAB BLOOD ORDERABLES Final Res ult Performing Organization Address [facility] Co de Phone Number [facility] [address] [place] [address] * Vitamin B12 (12/26/2024 2:50 AM EDT) Vitamin B12, Serum 979 210 - 1,033 pg/mL 12/26/2024 4:05 AM EDT [facility] Blood Venous blood specimen / Unknown Venipuncture / Unknown 12/26/2024 2:50 AM EDT 12/26/2024 3:17 AM EDT us Omar Barnhart MD LAB BLOOD ORDERABLES Final Res ult Performing Organization Address [facility] [place] [address] * (ABNORMAL) APTT (12/26/2024 2:50 AM EDT) aPTT 36(H) 25 - 35 sec 12/26/2024 3:24 AM EDT [facility] Blood Venous blood specimen / Unknown Venipuncture / Unknown 12/26/2024 2:50 AM EDT 12/26/2024 3:09 AM EDT us Omar Barnhart MD LAB BLOOD ORDERABLES Final Res ult Performing Organization Address [facility] Co de Phone Number [facility] [address] [place] [address] * (ABNORMAL) PT/INR (12/26/2024 2:50 AM EDT) Prothrombin Time 16.6(H) 12.0 - 14.3 sec 12/26/2024 3:24 AM EDT [facility] INR 1.4(H) 0.9 - 1.1 12/26/2024 3:24 AM EDT [facility] Blood Venous blood specimen / Unknown Venipuncture / Unknown 12/26/2024 2:50 AM EDT 12/26/2024 3:09 AM EDT Narrative [facility] - 12/26/2024 3:24 AM EDT OPTIMAL INR RANGES FOR PATIENT ON ORAL ANTICOAGULANT THERAPY Prevention of venous thromboembolism INR 2.0 to 3.0 In patients with heart disease: Atrial fibrillation INR 2.0 to 3.0 Valvular heart disease INR 2.0 to 3.0 Tissue heart valves INR 2.0 to 3.0 Mechanical prosthetic valves INR 2.5 to 3.5 Prevention of recurrent NM INR 2.5 to 3.5 us Omar Barnhart MD LAB BLOOD ORDERABLES Final Res ult Performing Organization Address [facility] Co de Phone Number [facility] [address] [place] [address] * Phosphorus (12/26/2024 2:50 AM EDT) Phosphorus, Plasma 3.5 2.5 - 4.5 mg/dL 12/26/2024 3:47 AM EDT [facility] Blood Venous blood specimen / Unknown Venipuncture / Unknown 12/26/2024 2:50 AM EDT 12/26/2024 3:09 AM EDT us Omar Barnhart MD LAB BLOOD ORDERABLES Final Res ult [facility] [address] [place] [address] * Magnesium, Plasma (12/26/2024 2:50 AM EDT) Pathologist [facility] Magnesium, Plasma 2.1 1.9 - 2.4 mg/dL 12/26/2024 3:46 AM EDT [facility] Blood Venous blood specimen / Unknown Venipuncture / Unknown 12/26/2024 2:50 AM EDT 12/26/2024 3:09 AM EDT us Omar Barnhart MD LAB BLOOD ORDERABLES Final Res ult Performing Organization Address [facility]/ZIP Co de Phone Number [facility] [address] [place] [address] * (ABNORMAL) CBC and Differential (12/26/2024 2:50 AM EDT) [facility] WBC Count 9.17 3.70 - 10.30 10*3/uL LAB HEMATOLOGY METHOD 12/26/2024 3:14 AM EDT [facility] RBC Count 5.37 4.60 - 6.10 10*6/uL LAB HEMATOLOGY METHOD 12/26/2024 3:14 AM EDT [facility] HGB 15.5 13.7 - 17.5 g/dL LAB HEMATOLOGY METHOD 12/26/2024 3:14 AM EDT [facility] HCT 47.2 40.0 - 51.0 % LAB HEMATOLOGY METHOD 12/26/2024 3:14 AM EDT [facility] Platelet Count 236 155 - 369 10*3/uL LAB HEMATOLOGY METHOD 12/26/2024 3:14 AM EDT [facility] MCV 88 79 - 98 fL LAB HEMATOLOGY METHOD 12/26/2024 3:14 AM EDT [facility] MCH 28.9 26.0 - 32.0 pg LAB HEMATOLOGY METHOD 12/26/2024 3:14 AM EDT [facility] MCHC 32.8 30.7 - 35.5 g/dL LAB HEMATOLOGY METHOD 12/26/2024 3:14 AM EDT [facility] RDW 19.0(H) 11.5 - 14.5 % LAB HEMATOLOGY METHOD 12/26/2024 3:14 AM EDT [facility] MPV 11.5 8.8 - 12.5 fL LAB HEMATOLOGY METHOD 12/26/2024 3:14 AM EDT [facility] nRBC 0.0 <=0.0 per 100 WBCs LAB HEMATOLOGY METHOD 12/26/2024 3:14 AM EDT [facility] Differential Type Automated LAB HEMATOLOGY METHOD 12/26/2024 3:14 AM EDT [facility] Neutrophils % 67 % LAB HEMATOLOGY METHOD 12/26/2024 3:14 AM EDT [facility] Lymphocytes % 23 % LAB HEMATOLOGY METHOD 12/26/2024 3:14 AM EDT [facility] Monocytes % 6 % LAB HEMATOLOGY METHOD 12/26/2024 3:14 AM EDT [facility] Eosinophils % 3 % LAB HEMATOLOGY METHOD 12/26/2024 3:14 AM EDT [facility] Basophils % 1 % LAB HEMATOLOGY METHOD 12/26/2024 3:14 AM EDT [facility] Immature Granulocytes % 0 % LAB HEMATOLOGY METHOD 12/26/2024 3:14 AM EDT [facility] Neutrophils Absolute 6.20(H) 1.60 - 6.10 10*3/uL LAB HEMATOLOGY METHOD 12/26/2024 3:14 AM EDT [facility] Lymphocytes Absolute 2.09 1.20 - 3.90 10*3/uL LAB HEMATOLOGY METHOD 12/26/2024 3:14 AM EDT [facility] Monocytes Absolute 0.55 0.30 - 0.90 10*3/uL LAB HEMATOLOGY METHOD 12/26/2024 3:14 AM EDT [facility] Eosinophils Absolute 0.25 0.00 - 0.50 10*3/uL LAB HEMATOLOGY METHOD 12/26/2024 3:14 AM EDT [facility] Basophils Absolute 0.06 0.00 - 0.10 10*3/uL LAB HEMATOLOGY METHOD 12/26/2024 3:14 AM EDT [facility] Immature Granulocytes Absolute 0.02 0.00 - 0.06 10*3/uL LAB HEMATOLOGY METHOD 12/26/2024 3:14 AM EDT [facility] Blood Venous blood specimen / Unknown Venipuncture / Unknown 12/26/2024 2:50 AM EDT 12/26/2024 3:09 AM EDT Narrative [facility] - 12/26/2024 3:14 AM EDT Therapeutic decision making should be based on absolute values, rather than percentages. us Omar Barnhart MD LAB BLOOD ORDERABLES Final Res ult [facility] [address] [place] [address] * (ABNORMAL) Basic metabolic panel (12/26/2024 2:50 AM EDT) Glucose, Plasma 128(H) 74 - 99 mg/dL 12/26/2024 3:47 AM EDT [facility] BUN, Plasma 18 8 - 23 mg/dL 12/26/2024 3:47 AM EDT [facility] Creatinine, Plasma 1.10 0.70 - 1.20 mg/dL 12/26/2024 3:47 AM EDT [facility] BUN/Creatinine Ratio 16 12/26/2024 3:47 AM EDT [facility] Sodium, Plasma 139 136 - 145 mmol/L 12/26/2024 3:47 AM EDT [facility] Potassium, Plasma 4.7 3.6 - 4.9 mmol/L 12/26/2024 3:47 AM EDT [facility] Chloride, Plasma 105 97 - 107 mmol/L 12/26/2024 3:47 AM EDT [facility] CO2, Plasma 23 22 - 29 mmol/L 12/26/2024 3:47 AM EDT [facility] Anion Gap 11 6 - 16 mmol/L 12/26/2024 3:47 AM EDT [facility] Total Calcium, Plasma 8.9 8.9 - 10.2 mg/dL 12/26/2024 3:47 AM EDT [facility] eGFRcr 75.0 mL/min/1.7 3m*2 12/26/2024 3:47 AM EDT [facility] Comment:Reported eGFRcr in m L/min/1.73m2 is based the CKD-EPI 2020 equation that does not use a race coefficient. Blood Venous blood specimen / Unknown Venipuncture / Unknown 12/26/2024 2:50 AM EDT 12/26/2024 3:09 AM EDT us Omar Barnhart MD LAB BLOOD ORDERABLES Final Res ult [facility] [address] [place] [address] * CT Chest w IV Contrast (12/25/2024 [...] Raya MD on 12/25/2024 3:07 PM Omar Barnhart MD IMG CT PROCEDURES [...] by Madeline Gallardo on 12/25/2024 2:50 PM us Omar Barnhart MD IMG CT PROCEDURES Final Result * (ABNORMAL) Lipase (12/25/2024 12:49 PM EDT) Lipase, Plasma 454(H) 19 - 63 U/L 12/25/2024 1:21 PM EDT [facility] Blood Venous blood specimen / Unknown Venipuncture / Unknown 12/25/2024 12:49 PM EDT 12/25/2024 12:52 PM EDT us Omar Barnhart MD LAB BLOOD ORDERABLES Final Res ult Performing Organization Address [facility] Co de Phone Number [facility] [address] [place] [address] * Phosphorus (12/25/2024 9:08 AM EDT) Phosphorus, Plasma 3.2 2.5 - 4.5 mg/dL 12/25/2024 10:01 AM EDT [facility] Blood Venous blood specimen / Unknown Venipuncture / Unknown 12/25/2024 9:08 AM EDT 12/25/2024 9:33 AM EDT us Danny Lucio MD LAB BLOOD ORDERABLES Final Re sult Performing Organization Address City/[facility]/ZIP Co de Phone Number [facility] [address] [place] [address] * Magnesium (12/25/2024 9:08 AM EDT) Magnesium, Plasma 2.1 1.9 - 2.4 mg/dL 12/25/2024 10:01 AM EDT [facility] Blood Venous blood specimen / Unknown Venipuncture / Unknown 12/25/2024 9:08 AM EDT 12/25/2024 9:33 AM EDT us Danny Lucio MD LAB BLOOD ORDERABLES Final Re sult [facility] [address] [place] [address] * (ABNORMAL) CMP (12/25/2024 9:08 AM EDT) Glucose, Plasma 143(H) 74 - 99 mg/dL 12/25/2024 10:01 AM EDT [facility] BUN, Plasma 15 8 - 23 mg/dL 12/25/2024 10:01 AM EDT [facility] Creatinine, Plasma 0.95 0.70 - 1.20 mg/dL 12/25/2024 10:01 AM EDT [facility] BUN/Creatinine Ratio 16 12/25/2024 10:01 AM EDT [facility] Sodium, Plasma 139 136 - 145 mmol/L 12/25/2024 10:01 AM EDT [facility] Potassium, Plasma 5.2(H) 3.6 - 4.9 mmol/L 12/25/2024 10:01 AM EDT [facility] Comment:Hemolyzed, result ma y be falsely increased. Chloride, Plasma 106 97 - 107 mmol/L 12/25/2024 10:01 AM EDT [facility] CO2, Plasma 21(L) 22 - 29 mmol/L 12/25/2024 10:01 AM EDT [facility] Anion Gap 12 6 - 16 mmol/L 12/25/2024 10:01 AM EDT [facility] Total Calcium, Plasma 9.4 8.9 - 10.2 mg/dL 12/25/2024 10:01 AM EDT [facility] Total Protein 6.8 6.3 - 7.9 g/dL 12/25/2024 10:01 AM EDT [facility] Albumin, Plasma 3.9 3.5 - 5.2 g/dL 12/25/2024 10:01 AM EDT [facility] AST, Plasma 63(H) 10 - 50 U/L 12/25/2024 10:01 AM EDT [facility] Comment:Hemolyzed, result ma y be falsely increased. ALT, Plasma 131(H) 10 - 50 U/L 12/25/2024 10:01 AM EDT [facility] Comment:Hemolyzed, result ma y be falsely increased or decreased. Alkaline Phosphatase, Plasma 197(H) 40 - 115 U/L 12/25/2024 10:01 AM EDT [facility] Comment:Hemolyzed, result ma y be falsely decreased. Total Bilirubin, Plasma 2.5(H) 0.2 - 1.1 mg/dL 12/25/2024 10:01 AM EDT [facility] eGFRcr 89.4 mL/min/1.7 3m*2 12/25/2024 10:01 AM EDT [facility] Comment:Reported eGFRcr in m L/min/1.73m2 is based the CKD-EPI 2020 equation that does not use a race coefficient. Blood Venous blood specimen / Unknown Venipuncture / Unknown 12/25/2024 9:08 AM EDT 12/25/2024 9:33 AM EDT us Danny Lucio MD LAB BLOOD ORDERABLES Final Re sult [facility] [address] [place] [address] * (ABNORMAL) PT-INR (12/25/2024 9:08 AM EDT) Prothrombin Time 15.8(H) 12.0 - 14.3 sec 12/25/2024 9:51 AM EDT [facility] INR 1.3(H) 0.9 - 1.1 12/25/2024 9:51 AM EDT [facility] Blood Venous blood specimen / Unknown Venipuncture / Unknown 12/25/2024 9:08 AM EDT 12/25/2024 9:33 AM EDT Narrative [facility] - 12/25/2024 9:51 AM EDT OPTIMAL INR RANGES FOR PATIENT ON ORAL ANTICOAGULANT THERAPY Prevention of venous thromboembolism INR 2.0 to 3.0 In patients with heart disease: Atrial fibrillation INR 2.0 to 3.0 Valvular heart disease INR 2.0 to 3.0 Tissue heart valves INR 2.0 to 3.0 Mechanical prosthetic valves INR 2.5 to 3.5 Prevention of recurrent NM INR 2.5 to 3.5 us Danny Lucio MD LAB BLOOD ORDERABLES Final Re sult [facility] [address] [place] [address] * (ABNORMAL) CBC w/diff (12/25/2024 9:08 AM EDT) WBC Count 9.76 3.70 - 10.30 10*3/uL LAB HEMATOLOGY METHOD 12/25/2024 9:35 AM EDT [facility] RBC Count 5.91 4.60 - 6.10 10*6/uL LAB HEMATOLOGY METHOD 12/25/2024 9:35 AM EDT [facility] HGB 17.3 13.7 - 17.5 g/dL LAB HEMATOLOGY METHOD 12/25/2024 9:35 AM EDT [facility] HCT 50.3 40.0 - 51.0 % LAB HEMATOLOGY METHOD 12/25/2024 9:35 AM EDT [facility] Platelet Count 216 155 - 369 10*3/uL LAB HEMATOLOGY METHOD 12/25/2024 9:35 AM EDT [facility] MCV 85 79 - 98 fL LAB HEMATOLOGY METHOD 12/25/2024 9:35 AM EDT [facility] MCH 29.3 26.0 - 32.0 pg LAB HEMATOLOGY METHOD 12/25/2024 9:35 AM EDT [facility] MCHC 34.4 30.7 - 35.5 g/dL LAB HEMATOLOGY METHOD 12/25/2024 9:35 AM EDT [facility] RDW 19.2(H) 11.5 - 14.5 % LAB HEMATOLOGY METHOD 12/25/2024 9:35 AM EDT [facility] MPV 11.1 8.8 - 12.5 fL LAB HEMATOLOGY METHOD 12/25/2024 9:35 AM EDT [facility] nRBC 0.0 <=0.0 per 100 WBCs LAB HEMATOLOGY METHOD 12/25/2024 9:35 AM EDT [facility] Differential Type Automated LAB HEMATOLOGY METHOD 12/25/2024 9:35 AM EDT [facility] Neutrophils % 80 % LAB HEMATOLOGY METHOD 12/25/2024 9:35 AM EDT [facility] Lymphocytes % 13 % LAB HEMATOLOGY METHOD 12/25/2024 9:35 AM EDT [facility] Monocytes % 6 % LAB HEMATOLOGY METHOD 12/25/2024 9:35 AM EDT [facility] Eosinophils % 1 % LAB HEMATOLOGY METHOD 12/25/2024 9:35 AM EDT [facility] Basophils % 0 % LAB HEMATOLOGY METHOD 12/25/2024 9:35 AM EDT [facility] Immature Granulocytes % 0 % LAB HEMATOLOGY METHOD 12/25/2024 9:35 AM EDT [facility] Neutrophils Absolute 7.72(H) 1.60 - 6.10 10*3/uL LAB HEMATOLOGY METHOD 12/25/2024 9:35 AM EDT [facility] Lymphocytes Absolute 1.28 1.20 - 3.90 10*3/uL LAB HEMATOLOGY METHOD 12/25/2024 9:35 AM EDT [facility] Monocytes Absolute 0.56 0.30 - 0.90 10*3/uL LAB HEMATOLOGY METHOD 12/25/2024 9:35 AM EDT [facility] Eosinophils Absolute 0.13 0.00 - 0.50 10*3/uL LAB HEMATOLOGY METHOD 12/25/2024 9:35 AM EDT [facility] Basophils Absolute 0.04 0.00 - 0.10 10*3/uL LAB HEMATOLOGY METHOD 12/25/2024 9:35 AM EDT [facility] Immature Granulocytes Absolute 0.03 0.00 - 0.06 10*3/uL LAB HEMATOLOGY METHOD 12/25/2024 9:35 AM EDT [facility] Blood Venous blood specimen / Unknown Venipuncture / Unknown 12/25/2024 9:08 AM EDT 12/25/2024 9:33 AM EDT Narrative [facility] - 12/25/2024 9:35 AM EDT Therapeutic decision making should be based on absolute values, rather than percentages. us Danny Lucio MD LAB BLOOD ORDERABLES Final Re sult [facility] [address] [place] [address] documented in this encounter Visit Diagnoses Diagnosis [...] Routine 1541 (Given - Provid er: Noah Garcia RN) gabapentin (Neurontin) capsule 300 mg (CANCELED) [...] Discontinued, Routine 1522 (Given - Provider: Maddy Lugo RN)2134 (Given - Provider: Pedro Luis Evans) 0953 (Given - Provider: oNah Garcia, KENNETH) ondansetron (Zofran) injection 4 mg [...] Breakthrough pain 1450 (Given - Provider: Maddy Lugo RN) 0953 (Given - Provider: Noah Garcia [...] nausea, vomiting 1524 (Given - Provider: Maddy Lugo, RN) prochlorperazine (Compazine) tablet 5 mg(Linked Group [...] documented as of this encounter Care Teams Outreach Specialist Relationship Specialty Start Date End Date Raimundo Chirinos MD [address] [place] [address] PCP - General 11/18/21 Moiz Mcnally MD [address] [id number] Surgeon Neurosurgery 11/18/21 Bridgett Gonzales APRN [address] [place] [address] Nurse Practitioner Neurosurgery 01/07/22 Purvi Foy, RN [facility] INTERVENT[facility] RADIOLOGY Registered Nurse 12/26/24 12/26/24 documented as of this encounter
--- OUTSIDE RECORDS SUMMARY | 2025-01-01 17:29 | XMS_ITS | Encounter Summary ---
Author Organization [facility] Address [address] [place] [address] Care Team Providers Care [employer] Teacher Name Role Phone Raimundo Chirinos MD Primary Care Provider [phone] Moiz Mcnally MD Unavailable [phone] Bridgett Gonzales FAST FOOD MANAGER Unavailable [phone] Ynes Rocha LOGISTICS ACCOUNT MANAGER Unavailable Unavailab Terrance Hdez Unavailable Unavailable Reason for Referral * Consultation (Routine) - Authorized Specialty Diagnoses / Procedures Referred By Pola black Referred To Contact Gastroenterology Diagnoses Epigastric pain Biliary obstruction Pancreatic mass Phill Forbes MD [address] [place] [address] Phone: tel: fax: [facility] [address] [place] [address] Phone: tel: fax: Referral ID Status Reason Start Date Expiration Date Visits Requested Visits Authorized [id number] Authorized Specialty Services Required 01/03/2025 07/05/2026 1 1 * Consultation (Routine) - Authorized Specialty Diagnoses / Procedures Referred By Pola black Referred To Contact Family Medicine Diagnoses Epigastric pain Biliary obstruction Pancreatic mass Phill Forbes MD [address] [place] [address] Phone: tel: fax: Referral ID Status Reason Start Date Expiration Date V isits Requested Visits Authorized [id number] Authorized 01/03/2025 07/05/2026 1 1 * Imaging (Routine) - Pending Review Specialty Diagnoses / Procedures Referred By Contac t Referred To Contact Gastroenterology Diagnoses Pancreatic mass Procedures ERCP Phill Forbes MD [address] [place] [address] Phone: tel: fax: Referral ID Status Reason Start Date Expiration Date Visits Requested Visits Authorized [id number] Pending Review Specialty Services Required 01/03/2025 07/05/2026 1 1 Reason for Visit * Reason Comments Abdominal Pain * Auth/Cert (Routine) Specialty Diagnoses / Procedures Referred By Pola t Referred To Contact Diagnoses Biliary obstruction Phill Forbes MD [address] [place] [address] Phone: tel: fax: [facility] Emergency Department [address] [place] [address] Phone: tel: Referral ID Status Reason Start Date Expiration Date Visits Re quested Visits Authorized [id number] 1 1 Encounter Details Date Type Department Care Team (Latest Contact Info) Description 01/01/2025 5:29 PM EDT - 01/03/2025 3:53 PM EDT Hospital Encounter [facility] Inpatient [address] [place] [address] Alonso Walton MD [address] [place] [address] Cristo Foley DO [address] [place] [address] Phill Forbes MD [address] [place] [address] Biliary obstruction (Primary Dx); Epigastric [...] time in the past [address] [facility], were you homeless or living in a halfway (including now)? 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 0 12/05/2024 CAGE Questionnaire Score 0 025 Utilities Answer Date Recorded In the past 12 months has [employer], gas, oil, or water [employer] threatened to shut off services in your [...] as of this encounter Miscellaneous Notes * Jennfier Godfrey, KENNETH - 01/03/2025 2:45 PM EDT Images from the original note were not included. [id number] Rivaroxaban IMPORTANT WARNING: If you have atrial [...] doctor or pharmacist will give you the provider education specialist's patient information sheet (Medication Guide) when you begin treatment with rivaroxaban and each time you refill your prescription. Read the information carefully and ask your doctor or pharmacist if you have any questions. You can also visit the Food and Drug Administration (FDA) website (https://www.fda.gov/downloads/Drugs/DrugSafety/SXV271131.pdf) or the provider education specialist's website to obtain the Medication Guide. WHY [...] of all of the prescription and nonprescription (lhsh-sxk-pkaqimz) medicines, vitamins, minerals, and dietary supplements you [...] or pharmacist about specific clinical use. The [place] [employer] represents that the information provided hereunder was formulated with a reasonable standard of care, and in conformity with professional standards in the field. The [place] [employer] makes no representations or warranties, express or implied, including, but not limited to, any implied warranty of merchantability and/or fitness for a particular purpose, with respect to such information and specifically disclaims all such warranties. Users are advised that decisions regarding drug therapy are complex medical decisions requiring the independent, informed decision of an appropriate health healthcare administration intern, and the information is provided for informational purposes only. The entire monograph for a drug should be reviewed for a thorough understanding of the drug's actions, uses and side effects. The [place] [employer] does not endorse or recommend the use of any drug.The information is not a substitute for medical care. AHFS?? Patient Medication Information?. ?? Copyright, 2023. The [place] [employer]??, [address], [address], [place], [place]. All Rights Reserved. Duplication for commercial use must be authorized by [facility]. Selected Revisions: October 09, 2022. AHFS?? Patient Medication Information?. ?? Copyright, 2024 * [facility] - Jennifer Olivera RN - 01/03/2025 2:45 PM EDT Images from the original note were not included. 1087 Oxycodone Oral Tablet, Immediate Release Brand Names: Oxaydo, Roxicodone What is this medicine? Oxycodone (ms-u-KWB-done) is an opioid pain reliever. It is used to treat moderate to severe pain. What should I tell my health care provider before I take this medicine? They need to know if you have any of these conditions: ?? [place]'s disease ?? Brain tumor or head injury [...] a special medication guide each time you tow picker this medicine. ?? Overdosage: Taking too much [...] should report to your doctor or health healthcare administration intern as soon as possible: ?? allergic reactions [...] attention (report to your doctor or health healthcare administration intern if they continue or are bothersome): ?? constipation ?? dry mouth ?? itching ?? nausea, vomiting ?? upset stomach This list may not describe all possible side effects. Call your doctor for medical advice about side effects. You may report side effects to FDA at 3-206-DSO-3203. Where should I keep my medicine? This [...] location. To find a disposal location, visit [facility]/[place]. If you cannot take unused medicine to [...] from the original note were not included. [address]8514 Abdominal Pain Abdominal pain means pain in [...] All medicines you take, both prescription and vbwt-phi-bhmscdx ?? What vitamins, herbs, and other supplements [...] again, start lightly. Eat small amounts of cfyg-sj-vifnxj, low-fat foods. These include applesauce, toast, or [...] bed. Last Reviewed Date: 2023 00:00:00 ?? 3852-5263 [employer]. All rights reserved. This information is not intended as a substitute for professional medical care. Always follow your healthcare professional's instructions. * Discharge Summary - Jacinto Gomez Gaby - 01/03/2025 2:32 PM EDT Hospitalization Admit Date/Time: 01/01/2025 5:29 PM Admitting Attending: Phill Forbes Discharge Date: 01/03/25 Discharge Attending Physician: Phill Forbes MD PCP name and Address: Raimundo Chirinos MD [address] [place] [address] [address] / [place] [address] Referring provider name and address: No referring [...] Your Medications These medications were sent to [id number] - [place], [place] - [address] [address] [address] [facility] [address] [address] [place] [address] oxyCODONE 10 MG immediate release tablet rivaroxaban [...] saw and evaluated the patient with the medical/GRINDER SET UP OPERATOR CENTERLESS/PA student. I discussed the case with the medical/GRINDER SET UP OPERATOR CENTERLESS/PA student and agree with the findings and plan as documented. I personally performed the Examand Medical Decision Making. * H&P - Shoaib Ramachandran MD - 01/03/2025 11:27 AM EDTAssociated Order(s): Inpatient consult to Surgical Oncology Images from the original note were not included. [facility] Department of Surgery Division of Surgical [...] x8, and hypertension who presented to the [facility] on 12/25/2024 withconcerns for intractable [...] Signed 12/04/2024 2:27 AM by Jeff Cramer, FAST FOOD MANAGER -ECHO 05/19/2021: LVEF is variable d/t arrhythmia, but is visually estimated at 45 - 60%. Paroxysmal A-fib (CMS/HCC) Essential hypertension Tobacco use disorder Pancreatic mass Upper abdominal pain Moderate protein-calorie malnutrition (CMS/HCC) Malignant neoplasm of pancreas, unspecified location of malignancy (CMS/HCC) Spinal stenosis of lumbar region with neurogenic claudication Overview Signed 11/20/2021 1:56 PM by Sae Rubio Added automatically from request for surgery [id number] Dispo: Surgery will now sign off CODE STATUS: do not resuscitate This Consult, Assessment, and Plan has been discussed with Dr. Navarro, Attending Physician Jillian Ramachandran MD General Surgery, PGY-1 Pager: [phone] 2:52 PM 01/03/2025 [1] Past Medical History: Diagnosis Date A-fib (CMS/HCC) CHF (congestive heart failure) (CMS/HCC) Coronary artery disease Hypertension Lower back pain Numbness and tingling of both feet Spinal stenosis of lumbar region with neurogenic claudication 11/20/2021 Added automatically from request for surgery [id number] [2] Allergies Allergen Reactions Atorvastatin Hallucinations Happens [...] Note Guanako Brock 64 y.o. male CSN: [id number] Admission: 01/01/2025 5:29 PM Primary Problem: Biliary [...] Note Guanako Brock 64 y.o. male CSN: [id number] Room/Bed 224-8/224-8 Nutrition evaluation type: assessment Reason for evaluation: nurse consult; [facility] 3 Hospital course: 64 yoM presents to [...] (Calculated): 23.49 Weight Evaluation: Normal (BMI 18.5-24.9) [place] Body Weight (kg): 67.2 Percent [place] Body Weight: 101 Estimated Needs: Metabolic Cart Study Results: Current Nutrition Intake: Diet Order: Adult Diet Diet Texture: Clear liquid Percent Meals Eaten (%): none to note Diet Experience and Nutrition History: Diet Education Provided: Will monitor Pertinent home medications: lasix, gabapentin, lisinopril, metoprolol succinate XL, ondansetron, potassium chloride, senna-docusate sodium Faith needs: Nutrition Focused Physical Exam: Unable to [...] [1] Past Medical History: Diagnosis Date A-fib ([facility]) CHF (congestive heart failure) ([facility]) Coronary artery disease Hypertension Lower back pain Numbness and tingling of both feet Spinal stenosis of lumbar region with neurogenic claudication 11/20/2021 Added automatically from request for surgery [id number] [2] Past Surgical History: Procedure Laterality Date [...] He has a past medical history of A-fib(CMS/HCC), CHF (congestive heart failure) (CMS/HCC), Coronary artery [...] [2] Past Medical History: Diagnosis Date A-fib ([facility]) CHF (congestive heart failure) ([facility]) Coronary artery disease Hypertension Lower back pain Numbness and tingling of both feet Spinal stenosis of lumbar region with neurogenic claudication 11/20/2021 Added automatically from request for surgery [id number] [3] Past Surgical History: Procedure Laterality Date [...] hemodynamically stable. Labs notable for ALT 308, AAL121, AlkPhos 297, Bili 8.8, lipase 474. CTAP [...] Jillian Aldrich MD PGY-5 Gastroenterology Fellow Pager: [phone] [1] Past Medical History: Diagnosis Date A-fib ([facility]) CHF (congestive heart failure) ([facility]) Coronary artery disease Hypertension Lower back pain Numbness and tingling of both feet Spinal stenosis of lumbar region with neurogenic claudication 11/20/2021 Added automatically from request for surgery [id number] [2] Past Surgical History: Procedure Laterality Date [...] [1] Past Medical History: Diagnosis Date A-fib ([facility]) CHF (congestive heart failure) ([facility]) Coronary artery disease Hypertension Lower back pain Numbness and tingling of both feet Spinal stenosis of lumbar region with neurogenic claudication 11/20/2021 Added automatically from request for surgery [id number] [2] Past Surgical History: Procedure Laterality Date [...] Chief Complaint Patient presents with Abdominal Pain [facility] Note: Guanako Brock is a 64 y.o. [...] breath. History provided by: Patient and spouse certified court interpreter used: No MAIN ED NOTE//Pebbles Miguel MD: I assumed full responsibility for this patient after transfer to Main ED from [facility] I personally performed my own history, ROS, and physical. I agree with the above [facility] documentation with the following additions/exceptions: 64-year-old male [...] baseline. Comments: Awake Psychiatric: Behavior: Behavior normal. Rosman Coma Scale Score: 15 ED Course & [...] patient was [facility] (Signed Out) Patient care assumed by oncoming provider, Hugh, at shift change, tentative plan at the time of sign-out was pending CT ED Prescriptions None Disposition Admit Admitting/Attending Physician: PHILL FORBES [[id number]] Provider Care Team: MONIKA MELISSA 13 [[id number]] [...] 11/20/2021 Added automatically from request for surgery [id number] [2] Past Surgical History: Procedure Laterality Date [...] Description 01/24/2025 8:30 AM EDT Office Visit [facility] [address] [place] [address] Nito Balderas MD [address] [place] [address] Scheduled Orders Name Type Priority Associated Diagnoses [...] - 4.5 mg/dL 01/03/2025 1:59 AM EDT [facility] Blood Venous blood specimen / Unknown Venipuncture / Unknown 01/03/2025 1:04 AM EDT 01/03/2025 1:31 AM EDT us Phill Forbes MD LAB BLOOD ORDERABLES Final Resul t Performing Organization Address City/[facility]/ZIP Co de Phone Number [facility] [address] [place] [address] * Magnesium, Plasma (01/03/2025 1:04 AM EDT) Pathologist [facility] Magnesium, Plasma 1.9 1.9 - 2.4 mg/dL 01/03/2025 1:59 AM EDT [facility] Blood Venous blood specimen / Unknown Venipuncture / Unknown 01/03/2025 1:04 AM EDT 01/03/2025 1:31 AM EDT us Phill Forbes MD LAB BLOOD ORDERABLES Final Resul t Performing Organization Address City/[facility]/ZIP Co de Phone Number [facility] [address] [place] [address] * (ABNORMAL) Comprehensive metabolic panel (01/03/2025 1:04 AM EDT) [facility] Glucose, Plasma 115(H) 74 - 99 mg/dL 01/03/2025 1:59 AM EDT [facility] BUN, Plasma 10 8 - 23 mg/dL 01/03/2025 1:59 AM EDT [facility] Creatinine, Plasma 0.98 0.70 - 1.20 mg/dL 01/03/2025 1:59 AM EDT [facility] BUN/Creatinine Ratio 10 01/03/2025 1:59 AM EDT [facility] Sodium, Plasma 140 136 - 145 mmol/L 01/03/2025 1:59 AM EDT [facility] Potassium, Plasma 4.1 3.6 - 4.9 mmol/L 01/03/2025 1:59 AM EDT [facility] Chloride, Plasma 103 97 - 107 mmol/L 01/03/2025 1:59 AM EDT [facility] CO2, Plasma 23 22 - 29 mmol/L 01/03/2025 1:59 AM EDT [facility] Anion Gap 14 6 - 16 mmol/L 01/03/2025 1:59 AM EDT [facility] Total Calcium, Plasma 8.6(L) 8.9 - 10.2 mg/dL 01/03/2025 1:59 AM EDT [facility] Total Protein 5.7(L) 6.3 - 7.9 g/dL 01/03/2025 1:59 AM EDT [facility] Albumin, Plasma 3.3(L) 3.5 - 5.2 g/dL 01/03/2025 1:59 AM EDT [facility] AST, Plasma 78(H) 10 - 50 U/L 01/03/2025 1:59 AM EDT [facility] ALT, Plasma 219(H) 10 - 50 U/L 01/03/2025 1:59 AM EDT [facility] Alkaline Phosphatase, Plasma 278(H) 40 - 115 U/L 01/03/2025 1:59 AM EDT [facility] Total Bilirubin, Plasma 6.3(H) 0.2 - 1.1 mg/dL 01/03/2025 1:59 AM EDT [facility] eGFRcr 86.1 mL/min/1.7 3m*2 01/03/2025 1:59 AM EDT [facility] Comment:Reported eGFRcr in m L/min/1.73m2 is based the CKD-EPI 2020 equation that does not use a race coefficient. Blood Venous blood specimen / Unknown Venipuncture / Unknown 01/03/2025 1:04 AM EDT 01/03/2025 1:31 AM EDT Phill Forbes MD LAB BLOOD ORDERABLES Final Resul t [facility] [address] [place] [address] * (ABNORMAL) CBC and Differential (01/03/2025 1:04 AM EDT) [facility] WBC Count 9.38 3.70 - 10.30 10*3/uL LAB HEMATOLOGY METHOD 01/03/2025 1:39 AM EDT [facility] RBC Count 5.65 4.60 - 6.10 10*6/uL LAB HEMATOLOGY METHOD 01/03/2025 1:39 AM EDT [facility] HGB 16.2 13.7 - 17.5 g/dL LAB HEMATOLOGY METHOD 01/03/2025 1:39 AM EDT [facility] HCT 49.9 40.0 - 51.0 % LAB HEMATOLOGY METHOD 01/03/2025 1:39 AM EDT [facility] Platelet Count 230 155 - 369 10*3/uL LAB HEMATOLOGY METHOD 01/03/2025 1:39 AM EDT [facility] MCV 88 79 - 98 fL LAB HEMATOLOGY METHOD 01/03/2025 1:39 AM EDT [facility] MCH 28.7 26.0 - 32.0 pg LAB HEMATOLOGY METHOD 01/03/2025 1:39 AM EDT [facility] MCHC 32.5 30.7 - 35.5 g/dL LAB HEMATOLOGY METHOD 01/03/2025 1:39 AM EDT [facility] RDW 19.6(H) 11.5 - 14.5 % LAB HEMATOLOGY METHOD 01/03/2025 1:39 AM EDT [facility] MPV 10.8 8.8 - 12.5 fL LAB HEMATOLOGY METHOD 01/03/2025 1:39 AM EDT [facility] nRBC 0.0 <=0.0 per 100 WBCs LAB HEMATOLOGY METHOD 01/03/2025 1:39 AM EDT [facility] Differential Type Automated LAB HEMATOLOGY METHOD 01/03/2025 1:39 AM EDT [facility] Neutrophils % 83 % LAB HEMATOLOGY METHOD 01/03/2025 1:39 AM EDT [facility] Lymphocytes % 11 % LAB HEMATOLOGY METHOD 01/03/2025 1:39 AM EDT [facility] Monocytes % 5 % LAB HEMATOLOGY METHOD 01/03/2025 1:39 AM EDT [facility] Eosinophils % 1 % LAB HEMATOLOGY METHOD 01/03/2025 1:39 AM EDT [facility] Basophils % 0 % LAB HEMATOLOGY METHOD 01/03/2025 1:39 AM EDT [facility] Immature Granulocytes % 0 % LAB HEMATOLOGY METHOD 01/03/2025 1:39 AM EDT [facility] Neutrophils Absolute 7.83(H) 1.60 - 6.10 10*3/uL LAB HEMATOLOGY METHOD 01/03/2025 1:39 AM EDT [facility] Lymphocytes Absolute 1.00(L) 1.20 - 3.90 10*3/uL LAB HEMATOLOGY METHOD 01/03/2025 1:39 AM EDT [facility] Monocytes Absolute 0.42 0.30 - 0.90 10*3/uL LAB HEMATOLOGY METHOD 01/03/2025 1:39 AM EDT [facility] Eosinophils Absolute 0.06 0.00 - 0.50 10*3/uL LAB HEMATOLOGY METHOD 01/03/2025 1:39 AM EDT [facility] Basophils Absolute 0.04 0.00 - 0.10 10*3/uL LAB HEMATOLOGY METHOD 01/03/2025 1:39 AM EDT [facility] Immature Granulocytes Absolute 0.03 0.00 - 0.06 10*3/uL LAB HEMATOLOGY METHOD 01/03/2025 1:39 AM EDT [facility] Blood Venous blood specimen / Unknown Venipuncture / Unknown 01/03/2025 1:04 AM EDT 01/03/2025 1:31 AM EDT Narrative [facility] - 01/03/2025 1:39 AM EDT Therapeutic decision making should be based on absolute values, rather than percentages. us Phill Forbes MD LAB BLOOD ORDERABLES Final Resul t [facility] [address] [place] [address] * ERCP (01/02/2025 5:33 PM EDT) Anatomical [...] Beverly Camargo CRNA, Iglesia Kumar CRNA Endo Pensionholder Information Clerk Shahbaz [place] MD Anesthesiologist Zoe [place] MD Proceduralist Kyler Mo MD Proceduralist Jillian Quevedo Endo Pensionholder Information Clerk Preprocedure A history and physical has been [...] User STENT BILIARY 3.3 X 70MM - [id number] Bile Duct Implanted INTERFACE, SUPPLY USAGE IN STENT ZIMMON 5FR X 3CM - [id number] Pancreas Implanted INTERFACE, SUPPLY USAGE IN Findings Prior to ERCP, diagnostic EGD was performed with standard gastroscope. This showed some mild gastritis in the stomach. The major papilla was [place]. The common bile duct and pancreatic duct [...] FLUOROSCOPY PROCEDURES Final Result Performing Organization Address City/State/[facility] Co de Phone Number IMAGING * Potassium (01/02/2025 4:12 AM EDT) Potassium, Plasma 3.8 3.6 - 4.9 mmol/L 01/02/2025 4:58 AM EDT [facility] Blood Venous blood specimen / Unknown Venipuncture / Unknown 01/02/2025 4:12 AM EDT 01/02/2025 4:35 AM EDT us Phill Forbes MD LAB BLOOD ORDERABLES Final Resul t [facility] [address] [place] [address] * (ABNORMAL) CBC w/diff (01/01/2025 8:45 PM EDT) WBC Count 7.95 3.70 - 10.30 10*3/uL LAB HEMATOLOGY METHOD 01/01/2025 8:54 PM EDT [facility] RBC Count 5.25 4.60 - 6.10 10*6/uL LAB HEMATOLOGY METHOD 01/01/2025 8:54 PM EDT [facility] HGB 15.6 13.7 - 17.5 g/dL LAB HEMATOLOGY METHOD 01/01/2025 8:54 PM EDT [facility] HCT 45.2 40.0 - 51.0 % LAB HEMATOLOGY METHOD 01/01/2025 8:54 PM EDT [facility] Platelet Count 218 155 - 369 10*3/uL LAB HEMATOLOGY METHOD 01/01/2025 8:54 PM EDT [facility] MCV 86 79 - 98 fL LAB HEMATOLOGY METHOD 01/01/2025 8:54 PM EDT [facility] MCH 29.7 26.0 - 32.0 pg LAB HEMATOLOGY METHOD 01/01/2025 8:54 PM EDT [facility] MCHC 34.5 30.7 - 35.5 g/dL LAB HEMATOLOGY METHOD 01/01/2025 8:54 PM EDT [facility] RDW 19.9(H) 11.5 - 14.5 % LAB HEMATOLOGY METHOD 01/01/2025 8:54 PM EDT [facility] MPV 11.4 8.8 - 12.5 fL LAB HEMATOLOGY METHOD 01/01/2025 8:54 PM EDT [facility] nRBC 0.0 <=0.0 per 100 WBCs LAB HEMATOLOGY METHOD 01/01/2025 8:54 PM EDT [facility] Differential Type Automated LAB HEMATOLOGY METHOD 01/01/2025 8:54 PM EDT [facility] Neutrophils % 71 % LAB HEMATOLOGY METHOD 01/01/2025 8:54 PM EDT [facility] Lymphocytes % 19 % LAB HEMATOLOGY METHOD 01/01/2025 8:54 PM EDT [facility] Monocytes % 7 % LAB HEMATOLOGY METHOD 01/01/2025 8:54 PM EDT [facility] Eosinophils % 2 % LAB HEMATOLOGY METHOD 01/01/2025 8:54 PM EDT [facility] Basophils % 1 % LAB HEMATOLOGY METHOD 01/01/2025 8:54 PM EDT [facility] Immature Granulocytes % 0 % LAB HEMATOLOGY METHOD 01/01/2025 8:54 PM EDT [facility] Neutrophils Absolute 5.63 1.60 - 6.10 10*3/uL LAB HEMATOLOGY METHOD 01/01/2025 8:54 PM EDT [facility] Lymphocytes Absolute 1.54 1.20 - 3.90 10*3/uL LAB HEMATOLOGY METHOD 01/01/2025 8:54 PM EDT [facility] Monocytes Absolute 0.53 0.30 - 0.90 10*3/uL LAB HEMATOLOGY METHOD 01/01/2025 8:54 PM EDT [facility] Eosinophils Absolute 0.18 0.00 - 0.50 10*3/uL LAB HEMATOLOGY METHOD 01/01/2025 8:54 PM EDT [facility] Basophils Absolute 0.05 0.00 - 0.10 10*3/uL LAB HEMATOLOGY METHOD 01/01/2025 8:54 PM EDT [facility] Immature Granulocytes Absolute 0.02 0.00 - 0.06 10*3/uL LAB HEMATOLOGY METHOD 01/01/2025 8:54 PM EDT [facility] Blood Venous blood specimen / Unknown Venipuncture / Unknown 01/01/2025 8:45 PM EDT 01/01/2025 8:48 PM EDT [facility] - 01/01/2025 8:54 PM EDT Therapeutic decision making should be based on absolute values, rather than percentages. us Kendall Shelton MD LAB BLOOD ORDERABLES Final Result [facility] [address] [place] [address] * (ABNORMAL) Lipase (01/01/2025 8:45 PM EDT) Lipase, Plasma 474(H) 19 - 63 U/L 01/01/2025 9:20 PM EDT [facility] Blood Venous blood specimen / Unknown Venipuncture / Unknown 01/01/2025 8:45 PM EDT 01/01/2025 8:48 PM EDT us Kendall Shelton MD LAB BLOOD ORDERABLES Final Result [facility] [address] [place] [address] * CT Abdomen Pelvis w IV Contrast [...] Per this written report. Drafted by Beverly Gzumán MD on 01/01/2025 11:59 PM Final report signed by Beverly Guzmán MD on 01/02/2025 12:21 AM Kendall Shelton MD IMG CT PROCEDURES Final Res ult * (ABNORMAL) Bilirubin, direct (01/01/2025 5:24 PM EDT) Conjugated Bilirubin, Plasma 3.7(H) <=0.3 mg/dL 01/01/2025 6:32 PM EDT [facility] Comment:Hemolyzed, result ma y be falsely decreased. Blood Venous blood specimen / Unknown Venipuncture / Unknown 01/01/2025 5:24 PM EDT 01/01/2025 5:42 PM EDT Kendall Shelton MD LAB BLOOD ORDERABLES Final Result [facility] [address] [place] [address] * (ABNORMAL) CMP (01/01/2025 5:24 PM EDT) Glucose, Plasma 128(H) 74 - 99 mg/dL 01/01/2025 6:32 PM EDT [facility] BUN, Plasma 11 8 - 23 mg/dL 01/01/2025 6:32 PM EDT [facility] Creatinine, Plasma 0.83 0.70 - 1.20 mg/dL 01/01/2025 6:32 PM EDT [facility] BUN/Creatinine Ratio 13 01/01/2025 6:32 PM EDT [facility] Sodium, Plasma 136 136 - 145 mmol/L 01/01/2025 6:32 PM EDT [facility] Potassium, Plasma 5.9(H) 3.6 - 4.9 mmol/L 01/01/2025 6:32 PM EDT [facility] Comment:Hemolyzed, result ma y be falsely increased. Chloride, Plasma 104 97 - 107 mmol/L 01/01/2025 6:32 PM EDT [facility] CO2, Plasma 18(L) 22 - 29 mmol/L 01/01/2025 6:32 PM EDT [facility] Anion Gap 14 6 - 16 mmol/L 01/01/2025 6:32 PM EDT [facility] Total Calcium, Plasma 9.2 8.9 - 10.2 mg/dL 01/01/2025 6:32 PM EDT [facility] Total Protein 6.6 6.3 - 7.9 g/dL 01/01/2025 6:32 PM EDT [facility] Albumin, Plasma 3.5 3.5 - 5.2 g/dL 01/01/2025 6:32 PM EDT [facility] AST, Plasma 210(H) 10 - 50 U/L 01/01/2025 6:32 PM EDT [facility] Comment:Hemolyzed, result ma y be falsely increased. ALT, Plasma 308(H) 10 - 50 U/L 01/01/2025 6:32 PM EDT [facility] Comment:Hemolyzed, result ma y be falsely increased or decreased. Alkaline Phosphatase, Plasma 297(H) 40 - 115 U/L 01/01/2025 6:32 PM EDT [facility] Comment:Hemolyzed, result ma y be falsely decreased. Total Bilirubin, Plasma 8.8(H) 0.2 - 1.1 mg/dL 01/01/2025 6:32 PM EDT [facility] eGFRcr 97.7 mL/min/1.7 3m*2 01/01/2025 6:32 PM EDT [facility] Comment:Reported eGFRcr in m L/min/1.73m2 is based the CKD-EPI 2020 equation that does not use a race coefficient. Blood Venous blood specimen / Unknown Venipuncture / Unknown 01/01/2025 5:24 PM EDT 01/01/2025 5:42 PM EDT us Kendall Shelton MD LAB BLOOD ORDERABLES Final Result [facility] [address] [place] [address] documented in this encounter Visit Diagnoses Diagnosis [...] RN) 0835 (See Alternative - Provider: Jennifer lOivera, KENNETH) prochlorperazine (Compazine) suppository 25 mg(Linked Group [...] documented as of this encounter Care Teams Forest Products Teacher Relationship Specialty Start Date End Date Raimundo Chirinos MD [facility] [address] [place] [address] PCP - General 11/18/21 Moiz Mcnally MD [id number] [place] [id number] Surgeon Neurosurgery 11/18/21 Bridgett Gonzales APRN [address] [place] [address] Nurse Practitioner Neurosurgery 01/07/22 Ynes Rocha LPN [facility] TCM Nurse 12/27/24 Terrance Corral Community Health Worker 12/27/2401/16 documented as of this encounter
--- OUTSIDE RECORDS SUMMARY | 2025-01-02 16:33 | XMS_ITS | Encounter Summary ---
Author Organization [facility] Address [address] [place] [address] Care Team Providers Care Heel Seam Rubber Name Role Phone Raimundo Chirinos MD Primary Care Provider [phone] Moiz Mcnally MD Unavailable [phone] Bridgett Gonzales SUPERVISING EDITOR TRAILER Unavailable [phone] Ynes Rocha SHIFT SUPERVISOR Unavailable Unavailab Terrance Hdez Unavailable Unavailable Reason for Visit * Auth/Cert (Routine) Specialty Diagnoses / Procedures Referred By Pola black Referred To Contact Diagnoses Biliary obstruction Ciro Ruelas MD [address] [place] [address] Phone: tel: fax: [facility] [address] [place] [address] Phone: tel: Referral ID Status Reason Start Date Expiration Date Visits Re quested Visits Authorized [id number] 1 1 Encounter Details Date Type Department Care Team (Late st Contact Info) Description 01/02/2025 4:33 PM EDT Anesthesia Event [facility] [address] [place] [address] Shahbaz Colorado MD [address] [place] [address] Beverly Esquivel CRNA [address] [place] [address] Anesthesia Record Procedure Summary Procedure Name Responsible Anesthesiologist Anesthesia Start Time Anesthesia Stop Time ERCP Shahbaz Colorado MD 01/02/25 1633 01/02/25 1741 Events Date Time Event Comment 01/02/2025 1530 1633 An Start The patient was reevaluated immediately before sedation and remains eligible for anesthesia plan. 1633 An Start Data 1633 In Room 1635 An Induction The patient was reevaluated immediately before moderate or deep sedation use and before anesthesia induction. 1638 An Intubation 1645 Anesthesia Ready 1645 Proc Start 1645 Prone Pressure Check Eyes an d nose free of pressure 1726 Proc Fin 1732 An Extubation 1733 Out of Room 1734 an stop data 1738 Handoff to Receiving I compl eted my handoff to the receiving clinician during which we: 1. Identified the patient 2. Identified the responsible provider 3. Reviewed the pertinent medical history 4. Discussed the surgical course 5. Reviewed intra-op anesthesia management and issues during anesthesia 6. Set expectations for post-procedure period 7. Allowed opportunity for questions and acknowledgement of understanding. 1741 An Stop Meds Name Total Lidocaine HCl 100 MG/5ML 100 mg rocuronium (ZeMuron) injection 10 mg/mL 50 mg propofol (Diprivan) injection 10 mg/mL 2 00 mg dexamethasone (Decadron) injection 4 mg/ mL 4 mg phenylephrine (Tiburcio-Synephrine) prefilled syringe 1 mg/10 mL 700 mcg ondansetron (Zofran) injection 2 mg/mL 4 mg sugammadex (Bridion) injection 100 mg/mL 150 mg glucagon injection 1 mg 0.5 mg lactated Ringer's infusion 500 mL * Agents Name O2 * Blood No blood administrations on file. Lines, Drains, and Airways Type Details Placement Removal Peripheral IV Placement Date: 02/18; Placement Time: 172; Catheter Size: 20 G; Orientation: Anterior, Right; Location: Forearm; Site Prep: Chlorhexidine ; Local Anesth: None; Technique: Anatomical landmarks; Insertion Attempts: 1; Patient Tolerance: Tolerated well; Removal Date: 01/03/25; Removal Time: 1453; Removal Reason: Discharge (tip intact) 01/01/25 172 by Pascual Wise 01/03/25 1453 by Jennifer Olivera RN ETT Placement Date: 03/21; Placement Time: 1638 (created via procedure documentation); Mask Ventilation: 2; Technique: Direct laryngoscopy; Type: ETT - single; Single Lumen Tube Size: 8 mm; Cuffed: Yes; Laryngoscope: Regine; Blade Size: 3; Location: Oral; Insertion Attempts: 1; Placement Verification: Auscultation, Capnometry; Airway Comments: Atraumatic. No change to dentition. ; Placed by: VANDANA; Removal Date: 01/02/25; Removal Time: 173101/02/25 163 by Beverly Esquivel CRNA 01/02/25 173 by Guanako Collins CRNA documented in this encounter Social History Tobacco [...] any time in the past 12 m onths, were you homeless or living in a [facility] (including now)? No 01/04/2025 CAGE ASSESSMENT Answer [...] drink first t zeb in the morning (EYE-MASTIC MAN) to steady your nerves or to get rid of a hangover? 0 12/05/2024 CAGE Questionnaire Score 0 025 Utilities Answer Date Recorded In the past 12 months has th appweevr, gas, oil, or water jellyfish threatened to shut off services in your [...] Sampson RN documented as of this encounter Miscellaneous Notes * Anesthesia Postprocedure Evaluation - Guanako Collins CRNA - 01/02/2025 5:41 PM EDT Patient: Guanako Brock Anesthesia Type: general Vitals Value Taken Time BP 120/65 01/02/25 17:41 Temp 36.5 01/02/25 17:41 Pulse 98 01/02/25 17:40 Resp 23 01/02/25 17:40 SpO2 100 % 01/02/25 17:40 Vitals shown include unfiled device data. Anesthesia Post Evaluation Patient location during evaluation: PACU Patient participation: complete - patient participated Level of consciousness: awake Pain management: adequate (pain score 0-3) Airway patency: natural airway Cardiovascular status: acceptable and hemodynamically stable Respiratory status: acceptable and blow-by oxygen Hydration status: acceptable Nausea/Vomiting: No No notable events documented. * Anesthesia Procedure Notes - Beverly Esquivel CRNA - 01/02/2025 4:47 PM EDTAssociated Order(s): Airway Airway Date/Time: 01/02/2025 4:38 PM Reason: elective Airway not difficult General Information and Staff Patient location during procedure: OR QUENCHING MACHINE OPERATOR: Beverly Esquivel CRNA Performed: VANDANA Patient Condition Indications for airway management: anesthesia Patient position: sniffing Final Airway Details Final airway type: endotracheal airway Successful airway: ETT Cuffed: yes Successful intubation technique: direct laryngoscopy Adjuncts used in placement: intubating stylet Endotracheal tube insertion site: oral Blade: Regine Blade size: #3 ETT size (mm): 8.0 Placement verified by: chest auscultation and capnometry Measured from: lips ETT to lips (cm): 21 Additional Comments Atraumatic. No change to dentition. * Anesthesia Preprocedure Evaluation - Shahbaz Colorado MD - 01/02/2025 3:08 PM EDT No anesthesia staff entered. Patient: Guanako Brock HPI Guanako Brock is a 64 y.o. male with body mass index is 23.49 kg/m??. who presents with Biliary obstruction, now for ERCP Procedure Information Date/Time: 01/02/25 1430 Scheduled providers: Vasiliy Rodriguez RN; Kyler Mo MD Procedure: ERCP Location: [facility] Relevant Problems Cardio (+) Essential hypertension (+) Paroxysmal A-fib (CMS/HCC) /Renal (+) ELDER (acute kidney injury) (CMS/[facility]) ALLERGIES Allergies[1] NPO STATUS Date of Last Liquid: 01/02/25 Time of Last Liquid: 829 (water) Date of Last Solid: 01/02/25 Time of Last Solid: 829 (broth, jellow apple juice) Past Medical History[2] AIRWAY HISTORY Airway Detailed Review Displaying the 20 most recent records Date Difficult Airway Blade Size ETT Size C-L Class Final Type Intubation Method 12/20/24 No 3 7.5 grade I - full view of glottis endotracheal airway direct laryngoscopy 12/11/21 No 4 7.5 grade I - full view of glottis endotracheal airway direct laryngoscopy MEDICATIONS Outpatient Current Outpatient Medications Medication Instructions aspirin 81 [...] LABS Lab Results Component Value Date WBC 7.95 01/01/2025 HGB 15.6 01/01/2025 HCT 45.2 01/01/2025 MCV 86 01/01/2025 PLT 218 01/01/2025 Lab Results Component Value Date CALCIUM 9.2 01/01/2025 BUN 11 01/01/2025 CREATININE 0.83 01/01/2025 BCR 13 01/01/2025 NA 136 01/01/2025 K 3.8 01/02/2025 CL 104 01/01/2025 CO2 18 (L) 01/01/2025 Type and Screen No results found for: ABO Lab Results Component Value Date HGBA1C 6.5 (H) 12/26/2024 Lab Results Component Value Date PGLU 132 (H) 12/04/2024 GLUCOSE 128 (H) 01/01/2025 ABG Lab Results Component Value Date XJS5CFN 24 12/11/2021 LACTATE 1.2 12/11/2021 Lab Results Component Value Date PH 7.26 (L) 12/11/2021 PCO2 53 (H) 12/11/2021 PO2 274 12/11/2021 [id number] 100.0 (H) 12/11/2021 BASEEXC -4.4 (L) 12/11/2021 HCTSYR 49.1 12/11/2021 KSYR 4.4 12/11/2021 CLSYR 112 (H) 12/11/2021 GLUSYR 99 12/11/2021 CAION 4.5 (L) 12/11/2021 LACTATE 1.2 12/11/2021 ECHO Echo, Adult Transthoracic Complete Result Date: 12/26/2024 Left Ventricle: The left ventricle is normal size. There is normal left ventricular myocardial thickness and mass. The left ventricular systolic function is severely reduced. The LVEF is variable dueto arrhythmia but is visually estimated at 15 - 30%. Unable to assess diastolic function due to arrh ytia. There is global hypokinesis of the left ventricle. Mitral Valve: The mitral valve leaflets are normal in appearance with no evidence of mitral valve prolapse. There is moderate to severe mitral regurgitation with an eccentric jet. The width of the vena contracta suggests moderate (0.3 - 0.6cm) mitral regurgitation. Right Ventricle: The right ventricle is moderately dilated. The right ventricular systolic function is moderately reduced. The estimated right ventricular systolic pressure is 48 mmHg. Right ventricular systolic pressure is mildly elevated (35-50mmHg). Left Atrium: The left atrium is severely dilated by visual assessment. Pericardium: No pericardial effusion. There is norecent study available for direct etfi-zf-eupg comparison. PFTs No results found for: CRT8ADJ , CEA5LHAF , STP2IWM , FVCPRED BP Readings from Last 5 Encounters: 01/02/25 126/88 12/26/24 122/80 12/20/24 104/87 12/07/24 131/89 12/04/24 124/85 Physical Exam Airway Mallampati: II Mouth opening: normal TM distance: >3 FB Neck ROM: full Cardiovascular Rhythm: irregular Rate: tachycardia Dental (+) poor dentition Comments: Poor dentition Pulmonary Breath sounds clear to auscultation (+) decreased breath sounds Neurological Oriented: normal to time, normal to place and normal to person Skin Musculoskeletal Extremities Anesthesia Plan ASA 4 Anesthesia technique(s) discussed with the patient/family: general Anesthesia plan agreed upon was: general Anesthetic plan and risks discussed with patient and spouse. Use of blood products discussed with patient and spouse who consented to blood products. Anesthesia Evaluation Airway Detailed Review Displaying the 20 most recent records Date Difficult Airway Blade Size ETT Size C-L Class Final Type Intubation Method 12/20/24 No 3 7.5 grade I - full view of glottis endotracheal airway direct laryngoscopy 12/11/21 No 4 7.5 grade I - full view of glottis endotracheal airway direct laryngoscopy ECHO (Last 10 results in 5 years) 12/26/24 0955 Narrative: Echo, Adult Transthoracic Complete Left Ventricle: The left ventricle is normal [...] is no recent study available for direct wbds-dp-yamv comparison. [1] Allergies Allergen Reactions Atorvastatin Hallucinations Happens with brand name only [2] Past Medical History: Diagnosis Date A-fib ([facility]) CHF (congestive heart failure) ([facility]) Coronary artery disease Hypertension Lower back pain Numbness and tingling of both feet Spinal stenosis of lumbar region with neurogenic claudication 11/20/2021 Added automatically from request for surgery [id number] [3] aspirin, 81 mg, Oral, Daily gabapentin, 300 mg, Oral, 4x daily metoprolol succinate XL, 25 mg, Oral, Daily piperacillin-tazobactam, 4.5 g, Intravenous, q6h polyethylene glycol, 17 g, Oral, Daily Insert peripheral IV, , , Once AND Saline lock IV, , , Once AND sodium chloride, 10 mL, Intravenous, q12h AND sodium chloride, 10 mL, Intravenous, PRN [4] PRN medications: ondansetron ODT OR ondansetron OR ondansetron, oxyCODONE, Insert peripheral IV AND Saline lock IV AND sodium chloride AND sodium chloride [5] Past Surgical History: Procedure Laterality Date CORONARY STENT PLACEMENT KNEE RECONSTRUCTION, MEDIAL PATELLAR FEMORAL LIGAMENT Left 1969 LUMBAR LAMINECTOMY Bilateral 12/11/2021 Posterolateral arthrodesis L3-L4, L4-L5, L5-S1; L4-L5 discectomy and TLIF by Dr. Mcnally TONSILLECTOMY [6] Social History Tobacco Use Smoking status: Every [...] EDT Office Visit [facility] [address] [place] [phone] Nito Balderas MD [address] [place] [id number] documented as of this encounter Goals Goal Patient Goal Type Associated Problems Recent Progress Patient-Stated? Author Autogenerat ed Goal Care Plan Autogenerated Problem No Sourav Garrido RN documented as of this encounter Procedures Procedure Name Priority Date/Time Associated Diagnosis Comments PB ANESTHESIA PLACEHOLDER Routine 01/02/2025 4:38 PM EDT DC AN ELECTIVE ENDOTRACHEAL AIRWAY Routine 01/02/2025 4:38 PM EDT documented in this encounter Results * DC AN ELECTIVE ENDOTRACHEAL AIRWAY, PB ANESTHESIA PLACEHOLDER (01/02/2025 4:38 PM EDT) Narrative Beverly Esquivel CRNA - 01/02/2025 4:38 PM EDT Beverly Esquivel CRNA 01/02/2025 4:48 PM Airway Date/Time: 01/02/2025 4:38 PM Reason: elective Airway not difficult General Information and Staff Patient location during procedure: OR QUENCHING MACHINE OPERATOR: Beverly Esquivel CRNA Performed: VANDANA Patient Condition Indications for airway management: anesthesia Patient position: sniffing Final Airway Details Final airway type: endotracheal airway Successful airway: ETT Cuffed: yes Successful intubation technique: direct laryngoscopy Adjuncts used in placement: intubating stylet Endotracheal tube insertion site: oral Blade: Regine Blade size: #3 ETT size (mm): 8.0 Placement verified by: chest auscultation and capnometry Measured from: lips ETT to lips (cm): 21 Additional Comments Atraumatic. No change to dentition. Beverly Esquivel CRNA ANESTHESIA ORDERABLES Final Result documented in this encounter Visit Diagnoses Not on filedocumented in this encounter Administered Medications Inactive Administered Medications - up to 3 most recent administrations Medication Order MAR Action Action Date Dose Rate Site dexamethasone (Decadron) injection Intravenous, As needed, Starting on Tue01/02/25 at 1647, Until Tue01/02/25 at 1741, Routine, Anesthesia Intraprocedure Given 01/02/2025 4:47 PM EDT 4 mg glucagon (human recombinant) injection Intravenous, As needed, Starting on Tue01/02/25 at 1658, Until Tue01/02/25 at 1741, Routine, Anesthesia Intraprocedure Given 01/02/2025 4:58 PM EDT 0.5 mg lactated Ringer's infusion Intravenous, Continuous PRN, Starting on Tue01/02/25 at 1633, Until Tue01/02/25 at 1741, Routine New Bag 01/02/2025 4:47 PM EDT New Bag 01/02/2025 4:33 PM EDT Lidocaine HCl prefilled syringe Buccal, As needed, Starting on Tue01/02/25 at 1635, Anesthesia Intraprocedure Given 01/02/2025 4:35 PM EDT 100 mg ondansetron (Zofran) injection Intravenous, As needed, Starting on Tue01/02/25 at 1647, Until Tue01/02/25 at 1741, Routine, Anesthesia Intraprocedure Given 01/02/2025 4:47 PM EDT 4 mg phenylephrine in NS (Tiburcio-Synephrine) 100 mcg/mL prefilled syringe Intravenous, As needed, Starting on Tue01/02/25 at 1635, Until Tue01/02/25 at 1741, Routine, Anesthesia Intraprocedure Given 01/02/2025 4:51 PM EDT 200 mcg Given 01/02/2025 4:49 PM EDT 200 mcg Given 01/02/2025 4:44 PM EDT 100 mcg propofol (Diprivan) injection Intravenous, As needed, Starting on Tue01/02/25 at 1635, Until Tue01/02/25 at 1741, Routine, Anesthesia Intraprocedure Given 01/02/2025 5:20 PM EDT 80 mg Given 01/02/2025 4:35 PM EDT 120 mg rocuronium (ZeMuron) injection Intravenous, As needed, Starting on Tue01/02/25 at 1636, Until Tue01/02/25 at 1741, Routine, Anesthesia Intraprocedure Given 01/02/2025 4:36 PM EDT 50 mg sugammadex (Bridion) 100 MG/ML injection Intravenous, As needed, Starting on Tue01/02/25 at 1722, Until Tue01/02/25 at 1741, Routine, Anesthesia Intraprocedure Given 01/02/2025 5:22 PM EDT 150 mg documented in this encounter Additional Health Concerns Active Problems Noted Date Diagnosed Date Autogenerated Problem 01/02/2025 Assessment Noted Time A fall risk assessment has been complete d for the patient 03/10/2022 9:47 AM EDT A Body Mass Index follow-up plan has been documented for the patient 01/03/2025 2:46 PM EDT documented as of this encounter Care Teams Heel Seam Rubber Relationship Specialty Start Date End Date Raimundo Chirinos MD [address] [place] [address] [address] [place] [address] PCP - General 11/18/21 Moiz Mcnally MD [address] [place] [phone] Surgeon Neurosurgery 11/18/21 Bridgett Gonzales APRN [address] [place] [address] Nurse Practitioner Neurosurgery 01/07/22 Ynes Rocha LPN [facility] TCM Nurse 12/27/24 Terrance Corral Community Health Worker 12/27/2401/16 documented as of this encounter
[2025-01-16] VITALS (8 sets, daily range): BP systolic 117–153; BP diastolic 77–107; PULSE 94–111; RESP 11–25; TEMP 36.4–37.2; O2SAT 97–100; BMI 22.7
--- NOTE | 2025-01-16 14:59 | PC.NURSE ---
Provider to chair side to evaluate patient.
--- OUTSIDE RECORDS SUMMARY | 2025-01-16 15:05 | XMS_ITS | Encounter Summary ---
Author Organization [facility] Address [address] [place] [address] Care Team Providers Care Mine Environmental Engineer Name Role Phone Raimundo Chirinos MD Primary Care Provider Moiz Mcnally MD Unavailable [phone] Bridgett Gonzales MILEAGE CLERK Unavailable [phone] Encounter Details Date Type Department Care Team [...] drink first t zeb in the morning (EYE-CAMP ADVISOR) to steady your nerves or to get rid of a hangover? 0 12/05/2024 CAGE Questionnaire Score 0 025 Utilities Answer Date Recorded In the past 12 months has th e [employer], gas, oil, or water company threatened to [...] Description 01/24/2025 8:30 AM EDT Office Visit [facility] Multidisciplinary Oncology Clinic [address] [place] [address] Nito Balderas MD [address] [place] [address] documented as of this encounter Visit Diagnoses Not on filedocumented in this encounter Additional Health Concerns Assessment Noted Time A fall risk assessment has been complete d for the patient 03/10/2022 9:47 AM EDT A Body Mass Index follow-up plan has been documented for the patient 12/26/2024 4:50 PM EDT documented as of this encounter Care Teams Mine Environmental Engineer Relationship Specialty Start Date End Date Raimundo Chirinos MD [address] [facility] [address] [place] [address] PCP - General 11/18/21 Moiz Mcnally MD [address] [place] [address] Surgeon Neurosurgery 11/18/21 Bridgett Gonzales APRN [address] [place] [address] Nurse Practitioner Neurosurgery 01/07/22 documented as of this encounter
--- OUTSIDE RECORDS SUMMARY | 2025-01-16 15:05 | XMS_ITS | Encounter Summary ---
Author Organization [facility] Address [address] [place] [address] Care Team Providers Care Joint Sealer Name Role Phone Raimundo Chirinos MD Primary Care Provider [phone] Moiz Mcnally MD Unavailable [phone] Bridgett Gonzales SEXER Unavailable [phone] Purvi Foy RN Unavailable Unavailab le Encounter [...] in a long term (including now)? No 12/27/2024 CAGE ASSESSMENT Answer [...] drink first t zeb in the morning (EYE-SLICE CUTTING MACHINE OPERATOR HELPER) to steady your nerves or to get rid of a hangover? 0 12/05/2024 CAGE Questionnaire Score 0 025 Utilities Answer Date Recorded In the past 12 months has th e [employer], gas, oil, or water company threatened to [...] [facility] Multidisciplinary Oncology Clinic [address] [place] [address] Nito Balderas MD [address] [place] [phone] documented as of this encounter Visit Diagnoses Not on filedocumented in this encounter Additional Health Concerns Assessment Noted Time A fall risk assessment has been complete d for the patient 03/10/2022 9:47 AM EDT A Body Mass Index follow-up plan has been documented for the patient 12/26/2024 4:50 PM EDT documented as of this encounter Care Teams Joint Sealer Relationship Specialty Start Date End Date Raimundo Chirinos MD [address] [facility] [address] [place], [place] [address] PCP - General 11/18/21 Moiz Mcnally MD [address] [employer] [facility] [place] [address] Surgeon Neurosurgery 11/18/21 Bridgett Gonzales APRN [address] [place] [address] Nurse Practitioner Neurosurgery 01/07/22 Purvi Foy, RN CH-VASCULAR & INTERVENTIONAL RADIOLOGY Registered Nurse 12/26/24 12/26/24 documented as of this encounter
--- OUTSIDE RECORDS SUMMARY | 2025-01-16 15:05 | XMS_ITS | Encounter Summary ---
Author Organization [facility] Address [address] [place] [address] Care Team Providers Care Belt Buckle Maker Name Role Phone Raimundo Chirinos MD Primary Care Provider [phone] Moiz Mcnally MD Unavailable [phone] Bridgett Gonzales BALANCE WHEEL HAND FILER Unavailable [phone] Ynes Rocha ROOFING LAYER Unavailable Unavailab Terrance Hdez Unavailable Unavailable Reason for Visit * Reason Comments Follow-up Encounter Details Date Type Department Care Team (Late st Contact Info) Description 01/16/2025 Patient Outreach [facility] [address] [facility], [address] [place] [address] Terrance Corral Follow-up Social History [...] time in the past 12 m [facility], were you homeless or living [...] drink first t zeb in the morning (EYE-APPRAISER ART) to steady your nerves or to get rid of a hangover? 0 12/05/2024 CAGE Questionnaire Score 0 025 Utilities Answer Date Recorded In the past 12 months has th e [employer], gas, oil, or water company threatened to shut off services in your home? No 01/04/2025 Sex and Gender Information Value Date Recorded Sex Assigned at Not on file Legal Sex Male 6:38 PM EDT Gender Identity Not on file Sexual Orientation Not on file documented as of this encounter Miscellaneous Notes * Progress Notes - Terrance Corral - 01/16/2025 8:58 AM EDT CHW attempted to outreach pt to furhter discuss SDOH needs after giving pt time to discuss with spouse. CHW left vm and will close pt due to this being the third outreach attempt with no contact. documented in this encounter Plan of Treatment Upcoming Encounters Date Type Department Care Team (Late st Contact Info) Description 01/24/2025 8:30 AM EDT Office Visit [facility] Multidisciplinary Oncology Clinic [address] [place] [address] Nito Balderas MD [address] [place] [phone] documented as of this encounter Goals Goal [...] documented as of this encounter Care Teams Belt Buckle Maker Relationship Specialty Start Date End Date Raimundo Chirinos MD [address] [place] [address] [address] [place] [address] PCP - General 11/18/21 Moiz Mcnally MD [address] [facility] [place] [address] Surgeon Neurosurgery 11/18/21 Bridgett Gonzales APRN [address] [place] [address] Nurse Practitioner Neurosurgery 01/07/22 Ynes Rocha LPN [facility] TCM Nurse 12/27/24 Terrance Corral Community Health Worker 12/27/2401/16 documented as of this encounter
--- OUTSIDE RECORDS SUMMARY | 2025-01-16 15:05 | XMS_ITS | Encounter Summary ---
Author Organization Healthcare Address [address] [place] [address] Care Team Providers Care Slurry Blender Name Role Phone Raimundo Chirinos MD Primary Care Provider [phone] Moiz Mcnally MD Unavailable [phone] Bridgett Gonzales WINDOW GLASS INSTALLER Unavailable [phone] Ynes Rocha NON DESTRUCTIVE EVALUATION SPECIALIST Unavailable Unavailab Terrance Hdez Unavailable Unavailable Reason for Visit * Reason Comments Community Resources Encounter Details Date Type Department Care Team (Late st Contact Info) Description 12/27/2024 Patient Outreach [facility] [address] [facility], [address] [place] [address] Terrance Corral Community Resources Social [...] any time in the past 12 m [facility], were you homeless or living in a [...] drink first t zeb in the morning (EYE-GIN OPERATOR) to steady your nerves or to get rid of a hangover? 0 12/05/2024 CAGE Questionnaire Score 0 025 Utilities Answer Date Recorded In the past 12 months has th e [employer], gas, oil, or water company threatened to [...] 12/27/2024 Urgent or Non-Urgent Referral: Non Urgent Physical Therapy Resident: No Preferred Language: Swedish Physical Therapy Resident ID: Outreach 1: 12/27/24 - left vm [...] Description 01/24/2025 8:30 AM EDT Office Visit [facility] Multidisciplinary Oncology Clinic [address] [place] [address] Nito Balderas MD [address] [place] [address] documented as of this encounter Visit Diagnoses Not on filedocumented in this encounter Additional Health Concerns Assessment Noted Time A fall risk assessment has been complete d for the patient 03/10/2022 9:47 AM EDT A Body Mass Index follow-up plan has been documented for the patient 12/26/2024 4:50 PM EDT documented as of this encounter Care Teams Slurry Blender Relationship Specialty Start Date End Date Raimundo Chirinos MD [address] [place] [address] PCP - General 11/18/21 Moiz Mcnally MD [address] [place] [address] Surgeon Neurosurgery 11/18/21 Bridgett Gonzales APRN [address] [place] [address] Nurse Practitioner Neurosurgery 01/07/22 Ynes Rocha LPN [facility] TCM Nurse 12/27/24 Terrance Corral Community Health Worker 12/27/2401/16 documented as of this encounter
--- OUTSIDE RECORDS SUMMARY | 2025-01-16 15:05 | XMS_ITS | Encounter Summary ---
Author Organization [facility] Address [address] [place] [address] Care Team Providers Care City Bus Driver Name Role Phone Raimundo Chirinos MD Primary Care Provider [phone] Moiz Mcnally MD Unavailable [phone] Bridgett Gonzales CORRESPONDENCE SCHOOL INSTRUCTOR Unavailable [phone] Ynes Rocha LPN Unavailable Unavailab Terrance Hdez Unavailable Unavailable Reason for Visit * Reason Comments TCM Call Encounter Details Date Type Department Care Team (Late st Contact Info) Description 12/27/2024 Patient Outreach [facility] [address] [facility], [address] [place] [address] [facility] TCM Call Social [...] any time in the past 12 m [facility], were you homeless or living [...] drink first t zeb in the morning (EYE-CARDIOTHORACIC ICU RN) to steady your nerves or to get rid of a hangover? 0 12/05/2024 CAGE Questionnaire Score 0 025 Utilities Answer Date Recorded In the past 12 months has th e [employer], gas, oil, or water company threatened [...] Date: 12/25/2024 Discharge Date: 12/26/2024 Hospital Service: [facility] Discharge Diagnosis: Malignant neoplasm of pancreas, [...] and patient states that he did not bulk picker his medications yet, and that he was notified the pharmacy had only received his zofran medication. SDOH needs were updated with patient and patient would like to discuss needs for foodand utilities. Patient did not voice any other questions or concerns during TCM call. Action: CHW referral placed for sdoh needs. [facility] pharmacy in [place] contacted to see if medications were ready for patient to bulk picker. Spoke with Alessia and she states medications are ready for patient to bulk picker. 12:02pm Patient called and notified discharge medications are ready for bulk picker. Medication changes: Per AVS Start: aspirin [...] Description 01/24/2025 8:30 AM EDT Office Visit [facility] Multidisciplinary Oncology Clinic [address] [place] [address] Nito Balderas MD [address] [place] [address] documented as of this encounter Goals Goal [...] documented as of this encounter Care Teams City Bus Driver Relationship Specialty Start Date End Date Raimundo Chirinos MD [address] [facility] [address] [place] [address] PCP - General 11/18/21 Moiz Mcnally MD [address] [place] [address] Surgeon Neurosurgery 11/18/21 Bridgett Gonzales APRN [address] [place] [address] Nurse Practitioner Neurosurgery 01/07/22 Ynes Rocha LPN [facility] TCM Nurse 12/27/24 Terrance Corral Community Health Worker 12/27/2401/16 documented as of this encounter
--- OUTSIDE RECORDS SUMMARY | 2025-01-16 15:05 | XMS_ITS | Encounter Summary ---
Author Organization [facility] Address [address] [place] [address] Care Team Providers Care Bleach Analyst Name Role Phone Raimundo Chirinos MD Primary Care Provider [phone] Moiz Mcnally MD Unavailable [phone] Bridgett Gonzales FOOD CONSULTANT Unavailable [phone] Purvi Foy RN Unavailable Unavailab Ynes Lozano INFORMATION TECHNOLOGY ACCOUNT MANAGER Unavailable Unavailab Terrance Hdez Unavailable Unavailable Reason for Visit * Reason Comments Link Encounter Details Date Type Department Care Team (Late st Contact Info) Description 12/26/2024 Patient Outreach [facility] [address] [place] [address] Purvi Foy, RN CH-VASCULAR & [...] drink first t zeb in the morning (EYE-GUEST SERVICE AIDE) to steady your nerves or to get [...] [facility] Multidisciplinary Oncology Clinic [address] [place] [address] Nito Balderas MD [address] [place] [address] documented as of this encounter Visit Diagnoses Not on filedocumented in this encounter Additional Health Concerns Assessment Noted Time A fall risk assessment has been complete d for the patient 03/10/2022 9:47 AM EDT A Body Mass Index follow-up plan has been documented for the patient 12/26/2024 4:50 PM EDT documented as of this encounter Care Teams Bleach Analyst Relationship Specialty Start Date End Date Raimundo Chirinos MD [address] [place] [address] [address] [place] [address] PCP - General 11/18/21 Moiz Mcnally MD [address] [place] [address] Surgeon Neurosurgery 11/18/21 Bridgett Gonzales APRN [address] [place] [address] Nurse Practitioner Neurosurgery 01/07/22 Purvi Foy, RN CH-VASCULAR & INTERVENTIONAL RADIOLOGY Registered Nurse 12/26/24 12/26/24 Ynes Rocha LPN [facility] TCM Nurse 12/27/24 Terrance Corral Community Health Worker 12/27/2401/16 documented as of this encounter
--- OUTSIDE RECORDS SUMMARY | 2025-01-16 15:06 | XMS_ITS | Encounter Summary ---
Author Organization [facility] Address [address] [place] [address] Care Team Providers Care Wash House Worker Name Role Phone Raimundo Chirinos MD Primary Care Provider [phone] Moiz Mcnally MD Unavailable [phone] Bridgett Gonzales DATA WAREHOUSING MANAGER Unavailable [phone] Ynes Rocha SNOW REMOVAL/PLOWING Unavailable Unavailab Terrance Hdez Unavailable Unavailable Reason for Visit * Reason Comments Follow-up Encounter Details Date Type Department Care Team (Late st Contact Info) Description 01/04/2025 Patient Outreach POPULATION HEALTH [address] [facility], [address] [place] [address] Terrance Corral Follow-up Social History [...] in the past 12 m [facility], were you homeless or living [...] drink first t zeb in the morning (EYE-SLIP BRIDGE OPERATOR) to steady your nerves or to get rid of a hangover? 0 12/05/2024 CAGE Questionnaire Score 0 025 Utilities Answer Date Recorded In the past 12 months has th e [employer], gas, oil, or water company threatened to [...] 01/24/2025 8:30 AM EDT Office Visit [facility] Multidisciplinary Oncology Clinic [address] [place] [phone] iNto Balderas MD [address] [place] [address] documented as of this encounter Goals Goal [...] documented as of this encounter Care Teams Wash House Worker Relationship Specialty Start Date End Date Raimundo Chirinos MD [id number] [place] [address] PCP - General 11/18/21 Moiz Mcnally MD [address] [place] [address] Surgeon Neurosurgery 11/18/21 Bridgett Gonzales APRN [address] [place] [address] Nurse Practitioner Neurosurgery 01/07/22 Ynes Rocha LPN [facility] TCM Nurse 12/27/24 Terrance Corral Community Health Worker 12/27/2401/16 documented as of this encounter
--- OUTSIDE RECORDS SUMMARY | 2025-01-16 15:06 | XMS_ITS | Encounter Summary ---
Author Organization Healthcare Address [address] [place] [address] Care Team Providers Care Laundry Room Attendant Name Role Phone Raimundo Chirinos MD Primary Care Provider Moiz Mcnally MD Unavailable [phone] Bridgett Gonzales TERMINAL COMPUTER OPERATOR Unavailable [phone] Ynes Rocha SUPERVISOR STAVE FINISHING Unavailable Unavailab Terrance Hdez Unavailable Unavailable Reason for Visit * Reason Comments Community Resources Encounter Details Date Type Department Care Team (Late st Contact Info) Description 12/31/2024 Patient Outreach POPULATION HEALTH [address] [facility], [address] [place] [address] Terrance Corral Community Resources Social [...] time in the past 12 m [facility], were you homeless or living [...] drink first t zeb in the morning (EYE-HOG COUNTER) to steady your nerves or to get rid of a hangover? 0 12/05/2024 CAGE Questionnaire Score 0 025 Utilities Answer Date Recorded In the past 12 months has th e [employer], gas, oil, or water company threatened to [...] Behavior (Lifetime) No 01/02/2025 8:00 PM EDT Darci Sampson RN documented as of this encounter Miscellaneous Notes * Progress Notes - Terrance Corral - 12/31/2024 11:39 AM EDT CHW Initial Encounter Note 12/31/2024 Urgent or Non-Urgent Referral: Non Urgent Track Repair Worker: No Preferred Language: Romansh Track Repair Worker ID: Outreach 1: 12/27/24 - left vm [...] for a local pantry and community action [place]; pt declined at this time. Pt stated [...] Office Visit [facility] [address] [place] [address] Nito Balderas MD [address] [place] [address] documented as of this encounter Goals Goal [...] documented as of this encounter Care Teams Laundry Room Attendant Relationship Specialty Start Date End Date Raimundo Chirinos MD [address] [facility] [address] [place] [address] PCP - General 11/18/21 Moiz Mcnally MD [address] [facility] [place] [address] Surgeon Neurosurgery 11/18/21 Bridgett Gonzales APRN [address] [place] [address] Nurse Practitioner Neurosurgery 01/07/22 Ynes Rocha LPN [facility] TCM Nurse 12/27/24 Terrance Corral Community Health Worker 12/27/2401/16 documented as of this encounter
--- OUTSIDE RECORDS SUMMARY | 2025-01-16 15:06 | XMS_ITS | Encounter Summary ---
Author Organization [facility] Address [address] [id number] Care Team Providers Care Configuration Analyst Name Role Phone Raimundo Chirinos MD Primary Care Provider [phone] Moiz Mcnally MD Unavailable [phone] Bridgett Gonzales EAR MUFF ASSEMBLER Unavailable [phone] Ynes Rocha SHOE REPAIRMAN Unavailable Unavailab Terrance Hdez Unavailable Unavailable Reason for Visit * Reason Onset Date Comments [facility] Care 01/07/2025 Encounter Details Date Type Department Care Team (Late st Contact Info) Description 01/07/2025 Telephone [facility] [address] [place] [address] Nito Balderas MD [address] [place] [address] [facility] Social History Tobacco Use Types Packs/Day [...] any time in the past 12 m [facility], were you homeless or living in a assisted (including now)? No 01/04/2025 CAGE ASSESSMENT Answer [...] drink first t zeb in the morning (EYE-PIT RECORDER) to steady your nerves or to get [...] Office Visit [facility] Multidisciplinary Oncology Clinic [address] [place] [phone] Nito Balderas MD [address] [place] [address] documented as of this encounter Goals Goal [...] documented as of this encounter Care Teams Configuration Analyst Relationship Specialty Start Date End Date Raimundo Chirinos MD [address] [place] [address] [address] [place] [address] PCP - General 11/18/21 Moiz Mcnally MD [address] [place] [address] Surgeon Neurosurgery 11/18/21 Bridgett Gonzales APRN [address] [place] [address] Nurse Practitioner Neurosurgery 01/07/22 Ynes Rocha LPN [facility] TCM Nurse 12/27/24 Terrance Corral Community Health Worker 12/27/2401/16 documented as of this encounter
--- OUTSIDE RECORDS SUMMARY | 2025-01-16 15:06 | XMS_ITS | Encounter Summary ---
Author Organization [facility] Address [address] [place] [address] Care Team Providers Care Machine Silk Screen Printer Name Role Phone Raimundo Chirinos MD Primary Care Provider [phone] Moiz Mcnally MD Unavailable [phone] Bridgett Gonzales MOSAIC TILE MAKER Unavailable [phone] Ynes Rocha ROTARY ADJUSTER Unavailable Unavailab Terrance Hdez Unavailable Unavailable Reason for Visit * Reason Comments Follow-up Encounter Details Date Type Department Care Team (Late st Contact Info) Description 01/11/2025 Patient Outreach POPULATION HEALTH [address] [facility], [address] [place] [address] Terrance Corral Follow-up Social History [...] drink first t zeb in the morning (EYE-MACHINIST WOOD) to steady your nerves or to get rid of a hangover? 0 12/05/2024 CAGE Questionnaire Score 0 025 Utilities Answer Date Recorded In the past 12 months has th e [employer], gas, oil, or water company threatened to [...] Visit [facility] Multidisciplinary Oncology Clinic [address] [place] [phone] Nito Balderas MD [address] [place] [address] documented as of this encounter Goals Goal [...] documented as of this encounter Care Teams Machine Silk Screen Printer Relationship Specialty Start Date End Date Raimundo Chirinos MD [address] [place] [address] [address] [place] [address] PCP - General 11/18/21 Moiz Mcnally MD [address] [place] [address] Surgeon Neurosurgery 11/18/21 Bridgett Gonzales APRN [address] [place] [address] Nurse Practitioner Neurosurgery 01/07/22 Ynes Rocha LPN [facility] TCM Nurse 12/27/24 Terrance Corral Community Health Worker 12/27/2401/16 documented as of this encounter
--- OUTSIDE RECORDS SUMMARY | 2025-01-16 15:06 | XMS_ITS ---
Author Organization [facility] Address [address] [place] [address] Care Team Providers Care Operations Staff Specialist Security Name Role Phone Raimundo Chirinos MD Primary Care Provider [phone] oMiz Mcnally MD Unavailable [phone] Bridgett Gonzales AIR HAMMER STRIPPER Unavailable [phone] Ynes Rocha LPN Unavailable Unavailab Terrance Hdez [...] (11/20/2021): Added automatically from request for surgery [id number] Current Treatment and Therapy Plans No current plan information found. Past Treatment and Therapy Plans No past plan information found. Lifetime Dose Tracking * Chemical Lifetime Dose Automatic Entry Manual Entr y Fluoro Time 4.402 minutes 4.402 minutes 0 minutes Air Kerma 90.687 mGy 90.687 mGy 0 mGy
--- OUTSIDE RECORDS SUMMARY | 2025-01-16 15:06 | XMS_ITS | Clinical Summary ---
Author Organization [facility] Address [address] [place] [address] Care Team Providers Care Metal Tile Lather Name Role Phone Raimundo Chirinos MD Primary Care Provider [phone] Moiz Mcnally MD Unavailable [phone] Bridgett Gonzales LABORATORY CHEMIST Unavailable [phone] Ynes Rocha LPN Unavailable Unavailab Terrance Hdez [...] (11/20/2021): Added automatically from request for surgery [id number] Encounters * This document contains information received from the source organization and may not represent a complete record from that organization. Date Type Department Care Team Description 01/16/2025 Patient Outreach [address], [address] [place] [address] Terrance Corral Follow-up 01/11/2025 Patient Outreach [place] [address], [address] [place] [address] Terrance Corral Follow-up 01/09/2025 Patient Outreach [place] [address], [address] [place] [address] Terrance Corral Follow-up 01/07/2025 Telephone [facility] [address] [place] [address] Ntio Balderas MD [facility] 01/04/2025 Patient Outreach [place] [address], [address] [place] [address] Terrance Corral Follow-up 01/04/2025 Patient Outreach [place] [address] [address], [address] [address] Ynes Rocha LPN TCM Call 01/02/2025 4:33 PM EDT Anesthesia Event [facility] Endoscopy [address] [place] [address] Shahbaz Colorado MD Faircloth, Jennifer H, VANDANA 01/02/2025 Travel 01/01/2025 5:29 PM EDT - 01/03/2025 3:53 PM EDT Hospital Encounter [facility] Inpatient [address] [place] [phone] Alonso Walton MD Chapman, Steven B, DO Myers, Kurt A, MD Biliary obstruction (Primary Dx); Epigastric pain; Pancreatic mass Discharge Disposition: Home or Self Care 01/01/2025 Travel 12/31/2024 Patient Outreach [place] [address], [address] [place] [address] Terrance Corral [facility] 12/27/2024 Patient Outreach [place] [address], [address] [place] [address] Terrance Corral [facility] 12/27/2024 Patient Outreach [facility] [address] [facility] [address], [address] [place] [address] Ynes Rocha LPN TCM Call 12/26/2024 Patient Outreach [facility] [address] [facility] [address], [address] [place] [phone] Purvi Foy, RN Link 12/26/2024 Travel 12/25/2024 7:53 AM EDT - 12/26/2024 5:05 PM EDT Hospital Encounter [facility] Emergency Department [address] [place] [phone] Danny Lucio MD Oo, Yadana, MD Santos, Patricia Therese A, MD Malignant neoplasm of pancreas, unspecified location of malignancy (CMS/HCC) (Primary Dx); Acute pancreatitis, unspecified complication status, unspecified pancreatitis type; Pancreatic mass; Epigastric pain; Nausea and vomiting, unspecified vomiting type; Malignant neoplasm of body of pancreas (CMS/HCC); Elevated lipase Discharge Disposition: Left Against Medical Advice 12/25/2024 Travel 12/24/2024 Orders Only [facility] [address] [place] [address] Darian Jaramillo MD Adenocarcinoma of head of pancreas (CMS/HCC) (Primary Dx); Mass of head of pancreas 12/20/2024 7:53 AM EDT Anesthesia Event [facility] Endoscopy [address] [place] [address] Sae Barriga MD Hackett, Michael D, VANDANA 12/20/2024 7:36 AM EDT - 12/20/2024 11:59 PM EDT Hospital Encounter [facility] Radiology [address] [place] [address] History of ERCP Discharge Disposition: Home or Self Care 12/20/2024 6:31 AM EDT - 12/20/2024 7:35 AM EDT Hospital Encounter [facility] Endoscopy [address] [place] [phone] Darian Jaramillo MD Acute pancreatitis, unspecified complication status, unspecified pancreatitis type (Primary Dx); Mass of head of pancreas Discharge Disposition: Home or Self Care 12/20/2024 Travel 12/12/2024 Telephone [facility] Endoscopy [address] [place] [address] Airam Man Scheduling 12/11/2024 Telephone [facility] Endoscopy [address] [place] [address] Airam Man Scheduling 12/06/2024 Travel 12/05/2024 7:20 PM EDT - 12/07/2024 6:30 PM EDT Hospital Encounter [facility] S Inpatient [address] [place] [address] Padmini Fitzpatrick MD Miguel, Mitchell A, MD Upper abdominal pain (Primary Dx); Mass of head of pancreas Discharge Disposition: Home or Self Care 12/05/2024 Travel 12/04/2024 Travel 12/03/2024 Travel 12/03/2024 Orders Only External Location [address] [place] [phone] Thomas Hood PA 12/03/2024 Orders Only External Location [address] [place] [address] Thomas Hood PA from Last 3 Months [...] any time in the past 12 m [facility], were you homeless or living in a alf (including now)? No 01/04/2025 CAGE ASSESSMENT Answer [...] drink first t zeb in the morning (EYE-CHIEF GAUGER) to steady your nerves or to get [...] EDT Office Visit [facility] [address] [place] [phone] Nito Balderas MD [address] [place] [address] Health Maintenance Due Date Last Done Comments [facility]-Depression Screening 1960 [facility]-Medicare Annual Wellness (AWV) 1960 [facility]-Infant/Child/Adol SDOH Screenings 1960 [id number] Vaccine (#1) 01/22/1965 [facility]-DTaP,Tdap,and Td Vaccine s [...] Plan Autogenerated Problem No Sourav Garrido, RN Medical Devices Implanted Type Area Data Analyst Report Writer Device Identifier Shelf Expiration Date Model / Serial / Lot Darling Brito [id number] Domitila [id number] - [id number] - [id number] Implanted:Qty: 1 on 12/11/2021 by Moiz Mcnally MD at [facility] Cage Spine Lumbar [employer] [id number] 09/16/2024 [id number] / [id number] Matrix Fibergraft Bg Lg 12.5cc - [id number] Implanted:Qty: 1 on 12/11/2021 by Moiz Mcnally MD at [facility] Spine Lumbar De[employer] Spine [employer] [id number] 02/06/2024 [id number] / / [id number] Screw 5.5mm Viper Ti Fen Crtcl Polyax 7mm X 55mm - [id number] Implanted:Qty: 4 on 12/11/2021 by Moiz Mcnally MD at [facility] Spine Lumbar De[employer]uy Spine [employer] [id number] / / Screw 5.5mm Viper Ti Fen Crtcl Polyax 8mm X 50mm - [id number] Implanted:Qty: 4 on 12/11/2021 by Moiz Mcnally MD at [facility] Spine Lumbar De[employer]uy Spine [employer] [id number] / / Pre-Lordosed Juventino W/ Line 95mm - [id number] Implanted:Qty: 2 on 12/11/2021 by Moiz Mcnally MD at [facility] Spine Lumbar De[employer]uy [employer]ine [employer] [id number] / / Single Inner Setscrew - [id number] Implanted:Qty: 8 on 12/11/2021 by Moiz Mcnally MD at [facility] Spine Lumbar De[employer]uy Spine [employer] [id number] / / Stent Biliary 3.3 X 70mm - [id number] Implanted:Qty: 1 on 01/02/2025 by Vasiliy Rodriguez, RN at [facility] Bile Duct [id number] 09/06/2027 [id number] / / [id number] Stent Zimmon 5fr X 3cm - [id number] Implanted:Qty: 1 on 01/02/2025 by Vasiliy Rodriguez, KENNETH at [facility] Pancreas [employer] [id number] 10/25/2027 [id number] / / [id number] Procedures Procedure Name Priority Date/Time Associated Diagnosis [...] ANESTHESIA PLACEHOLDER Routine 01/02/2025 4:38 PM EDT IL AN ELECTIVE ENDOTRACHEAL AIRWAY Routine 01/02/2025 4:38 [...] ANESTHESIA PLACEHOLDER Routine 12/20/2024 8:00 AM EDT IL AN ELECTIVE ENDOTRACHEAL AIRWAY Routine 12/20/2024 8:00 [...] LAB HEMATOLOGY METHOD 01/03/2025 1:39 AM EDT [facility] RBC Count 5.65 4.60 - 6.10 10*6/uL LAB HEMATOLOGY METHOD 01/03/2025 1:39 AM EDT [facility] HGB 16.2 13.7 - 17.5 g/dL LAB HEMATOLOGY METHOD 01/03/2025 1:39 AM EDT [facility] HCT 49.9 40.0 - 51.0 % LAB HEMATOLOGY METHOD 01/03/2025 1:39 AM EDT [facility] Platelet Count 230 155 - 369 10*3/uL LAB HEMATOLOGY METHOD 01/03/2025 1:39 AM EDT [facility] MCV 88 79 - 98 fL LAB HEMATOLOGY METHOD 01/03/2025 1:39 AM EDT [facility] MCH 28.7 26.0 - 32.0 pg LAB HEMATOLOGY METHOD 01/03/2025 1:39 AM EDT [facility] MCHC 32.5 30.7 - 35.5 g/dL LAB HEMATOLOGY METHOD 01/03/2025 1:39 AM EDT [facility] RDW 19.6(H) 11.5 - 14.5 % LAB HEMATOLOGY METHOD 01/03/2025 1:39 AM EDT [facility] MPV 10.8 8.8 - 12.5 fL LAB HEMATOLOGY METHOD 01/03/2025 1:39 AM EDT [facility] nRBC 0.0 <=0.0 per 100 WBCs LAB HEMATOLOGY METHOD 01/03/2025 1:39 AM EDT [facility] Differential Type Automated LAB HEMATOLOGY METHOD 01/03/2025 1:39 AM EDT [facility] Neutrophils % 83 % LAB HEMATOLOGY METHOD 01/03/2025 1:39 AM EDT [facility] Lymphocytes % 11 % LAB HEMATOLOGY METHOD 01/03/2025 1:39 AM EDT [facility] Monocytes % 5 % LAB HEMATOLOGY METHOD 01/03/2025 1:39 AM EDT [facility] Eosinophils % 1 % LAB HEMATOLOGY METHOD 01/03/2025 1:39 AM EDT [facility] Basophils % 0 % LAB HEMATOLOGY METHOD 01/03/2025 1:39 AM EDT [facility] Immature Granulocytes % 0 % LAB HEMATOLOGY METHOD 01/03/2025 1:39 AM EDT [facility] Neutrophils Absolute 7.83(H) 1.60 - 6.10 10*3/uL LAB HEMATOLOGY METHOD 01/03/2025 1:39 AM EDT [facility] Lymphocytes Absolute 1.00(L) 1.20 - 3.90 10*3/uL LAB HEMATOLOGY METHOD 01/03/2025 1:39 AM EDT [facility] Monocytes Absolute 0.42 0.30 - 0.90 10*3/uL LAB HEMATOLOGY METHOD 01/03/2025 1:39 AM EDT [facility] Eosinophils Absolute 0.06 0.00 - 0.50 10*3/uL LAB HEMATOLOGY METHOD 01/03/2025 1:39 AM EDT [facility] Basophils Absolute 0.04 0.00 - 0.10 10*3/uL LAB HEMATOLOGY METHOD 01/03/2025 1:39 AM EDT [facility] Immature Granulocytes Absolute 0.03 0.00 - 0.06 10*3/uL LAB HEMATOLOGY METHOD 01/03/2025 1:39 AM EDT [facility] Blood Venous blood specimen / Unknown Venipuncture / Unknown 01/03/2025 1:04 AM EDT 01/03/2025 1:31 AM EDT Narrative [facility] - 01/03/2025 1:39 AM EDT Therapeutic decision making should be based on absolute values, rather than percentages. us Ciro Ruelas MD LAB BLOOD ORDERABLES Final Resul t Performing Organization Address [facility] de Phone Number [facility] [address] [place] [address] * Phosphorus (01/03/2025 1:04 AM EDT) Only the most recent of3 resultswithin the time period is included. Phosphorus, Plasma 3.7 2.5 - 4.5 mg/dL 01/03/2025 1:59 AM EDT [facility] Blood Venous blood specimen / Unknown Venipuncture / Unknown 01/03/2025 1:04 AM EDT 01/03/2025 1:31 AM EDT us Ciro Ruelas MD LAB BLOOD ORDERABLES Final Resul t Performing Organization Address [facility] Co de Phone Number [facility] [address] [place] [address] * Magnesium, Plasma (01/03/2025 1:04 AM EDT) Only the most recent of4 resultswithin the time period is included. Magnesium, Plasma 1.9 1.9 - 2.4 mg/dL 01/03/2025 1:59 AM EDT [facility] Blood Venous blood specimen / Unknown Venipuncture / Unknown 01/03/2025 1:04 AM EDT 01/03/2025 1:31 AM EDT us Ciro Ruelas MD LAB BLOOD ORDERABLES Final Resul t [facility] [address] [place] [address] * (ABNORMAL) Comprehensive metabolic panel (01/03/2025 1:04 AM EDT) Only the most recent of7 resultswithin the time period is included. Glucose, Plasma 115(H) 74 - 99 mg/dL 01/03/2025 1:59 AM EDT [facility] BUN, Plasma 10 8 - 23 mg/dL 01/03/2025 1:59 AM EDT [facility] Creatinine, Plasma 0.98 0.70 - 1.20 mg/dL 01/03/2025 1:59 AM EDT [facility] BUN/Creatinine Ratio 10 01/03/2025 1:59 AM EDT [facility] Sodium, Plasma 140 136 - 145 mmol/L 01/03/2025 1:59 AM EDT [facility] Potassium, Plasma 4.1 3.6 - 4.9 mmol/L 01/03/2025 1:59 AM EDT [facility] Chloride, Plasma 103 97 - 107 mmol/L 01/03/2025 1:59 AM EDT [facility] CO2, Plasma 23 22 - 29 mmol/L 01/03/2025 1:59 AM EDT [facility] Anion Gap 14 6 - 16 mmol/L 01/03/2025 1:59 AM EDT [facility] Total Calcium, Plasma 8.6(L) 8.9 - 10.2 mg/dL 01/03/2025 1:59 AM EDT [facility] Total Protein 5.7(L) 6.3 - 7.9 g/dL 01/03/2025 1:59 AM EDT [facility] Albumin, Plasma 3.3(L) 3.5 - 5.2 g/dL 01/03/2025 1:59 AM EDT [facility] AST, Plasma 78(H) 10 - 50 U/L 01/03/2025 1:59 AM EDT [facility] ALT, Plasma 219(H) 10 - 50 U/L 01/03/2025 1:59 AM EDT [facility] Alkaline Phosphatase, Plasma 278(H) 40 - 115 U/L 01/03/2025 1:59 AM EDT [facility] Total Bilirubin, Plasma 6.3(H) 0.2 - 1.1 mg/dL 01/03/2025 1:59 AM EDT [facility] eGFRcr 86.1 mL/min/1.7 3m*2 01/03/2025 1:59 AM EDT [facility] Comment:Reported eGFRcr in m L/min/1.73m2 is based the CKD-EPI 2020 equation that does not use a race coefficient. Blood Venous blood specimen / Unknown Venipuncture / Unknown 01/03/2025 1:04 AM EDT 01/03/2025 1:31 AM EDT us Ciro Ruelas MD LAB BLOOD ORDERABLES Final Resul t [facility] [address] [place] [address] * ERCP (01/02/2025 5:33 PM EDT) Anatomical [...] Beverly Camargo CRNA, Iglesia Kumar CRNA Endo Residential Life Director Shahbaz Colorado MD Anesthesiologist Zoe Colorado MD Proceduralist Kyler Mo MD Proceduralist Jillian Quevedo Endo Residential Life Director Preprocedure A history and physical has been [...] User STENT BILIARY 3.3 X 70MM - [id number] Bile Duct Implanted INTERFACE, SUPPLY USAGE IN STENT ZIMMON 5FR X 3CM - [id number] Pancreas Implanted INTERFACE, SUPPLY USAGE IN Findings Prior to ERCP, diagnostic EGD was performed with standard gastroscope. This showed some mild gastritis in the stomach. The major papilla was pilot station. The common bile duct and pancreatic duct [...] IMG FLUOROSCOPY PROCEDURES Final Result IMAGING * IL AN ELECTIVE ENDOTRACHEAL AIRWAY, PB ANESTHESIA PLACEHOLDER (01/02/2025 4:38 PM EDT) Narrative Beverly Esquivel CRNA - 01/02/2025 4:38 PM EDT Beverly Esquivel CRNA 01/02/2025 4:48 PM Airway Date/Time: 01/02/2025 4:38 PM Reason: elective Airway not difficult General Information and Staff Patient location during procedure: OR DISTRICT MANAGER POSTAL SERVICE: Beverly Esquivel CRNA Performed: DISTRICT MANAGER POSTAL SERVICE Patient Condition Indications for airway management: anesthesia [...] Comments Atraumatic. No change to dentition. us Beverly Esquivel CRNA ANESTHESIA ORDERABLES Final Result * Potassium (01/02/2025 4:12 AM EDT) Potassium, Plasma 3.8 3.6 - 4.9 mmol/L 01/02/2025 4:58 AM EDT [facility] Blood Venous blood specimen / Unknown Venipuncture / Unknown 01/02/2025 4:12 AM EDT 01/02/2025 4:35 AM EDT us Ciro Ruelas MD LAB BLOOD ORDERABLES Final Resul t Performing Organization Address [facility] [place] [address] * (ABNORMAL) Lipase (01/01/2025 8:45 PM EDT) Only the most recent of4 resultswithin the time period is included. Lipase, Plasma 474(H) 19 - 63 U/L 01/01/2025 9:20 PM EDT [facility] Blood Venous blood specimen / Unknown Venipuncture / Unknown 01/01/2025 8:45 PM EDT 01/01/2025 8:48 PM EDT us John Shelton MD LAB BLOOD ORDERABLES Final Result Performing Organization Address [facility] [place] [address] * CT Abdomen Pelvis w IV Contrast [...] 3.7(H) <=0.3 mg/dL 01/01/2025 6:32 PM EDT [facility] Comment:Hemolyzed, result ma y be falsely decreased. Blood Venous blood specimen / Unknown Venipuncture / Unknown 01/01/2025 5:24 PM EDT 01/01/2025 5:42 PM EDT John Shelton MD LAB BLOOD ORDERABLES Final Result [facility] [address] [place] [address] * ECHO, ADULT TRANSTHORACIC COMPLETE (12/26/2024 9:55 AM EDT) [facility] Signature BSA 1.81 m2 ALLEN ISCV [...] Root Diam 31 mm ALLEN ISCV PA IL(ACCEL) 30.6 mmHg ALLEN ISCV LVLs ap2 8.8 [...] is no recent study available for direct [id number]-jarb comparison. Left Ventricle The left ventricle is [...] is no recent study available for direct [id number]-[id number] comparison. us Aramis Abreu MD CV ECHO PROCEDURES Final Resul t * (ABNORMAL) N-Terminal Probnp (12/26/2024 2:50 AM EDT) Only the most recent of2 resultswithin the time period is included. N-Terminal, PROBNP, Plasma 4,363(H) 0 - 899 pg/mL 12/26/2024 3:46 AM EDT [facility] Blood Venous blood specimen / Unknown Venipuncture / Unknown 12/26/2024 2:50 AM EDT 12/26/2024 3:09 AM EDT us Aramis Abreu MD LAB BLOOD ORDERABLES Final Res ult [facility] [address] [place] [address] * Iron & Total Iron Binding Capacity, Plasma (Includes Transferrin) (12/26/2024 2:50 AM EDT) Iron, Plasma 56 50 - 170 ug/dL 12/26/2024 3:46 AM EDT [facility] Transferrin, Plasma 214 200 - 360 mg/dL 12/26/2024 3:46 AM EDT [facility] Total Iron Binding Capacity, Plasma 268 240 - 450 ug/mL 12/26/2024 3:46 AM EDT [facility] Transferrin Saturation 21 14 - 50 % 12/26/2024 3:46 AM EDT [facility] Blood Venous blood specimen / Unknown Venipuncture / Unknown 12/26/2024 2:50 AM EDT 12/26/2024 3:09 AM EDT us Aramis Abreu MD LAB BLOOD ORDERABLES Final Res ult Performing Organization Address [facility] Co de Phone Number [facility] [address] [place] [address] * (ABNORMAL) Cancer antigen 19-9 (12/26/2024 2:50 AM EDT) Only the most recent of2 resultswithin the time period is included. CA 19.9 248(H) <36 U/mL 12/26/2024 3:56 AM EDT [facility] Blood Venous blood specimen / Unknown Venipuncture / Unknown 12/26/2024 2:50 AM EDT 12/26/2024 3:17 AM EDT Narrative [facility] - 12/26/2024 3:56 AM EDT Performed by Luiza electrochemiluminescent immunoassay. Results obtained with different test methods or kits cannot be used interchangeably. us Aramis Abreu MD LAB BLOOD ORDERABLES Final Res ult Performing Organization Address [facility] Co de Phone Number [facility] [address] [place] [address] * (ABNORMAL) APTT (12/26/2024 2:50 AM EDT) aPTT 36(H) 25 - 35 sec 12/26/2024 3:24 AM EDT [facility] Blood Venous blood specimen / Unknown Venipuncture / Unknown 12/26/2024 2:50 AM EDT 12/26/2024 3:09 AM EDT us Aramis Abreu MD LAB BLOOD ORDERABLES Final Res ult Performing Organization Address [facility] Co de Phone Number [address] [address] * (ABNORMAL) PT/INR (12/26/2024 2:50 AM EDT) Only the most recent of3 resultswithin the time period is included. Prothrombin Time 16.6(H) 12.0 - 14.3 sec 12/26/2024 3:24 AM EDT [facility] INR 1.4(H) 0.9 - 1.1 12/26/2024 3:24 AM EDT [facility] Blood Venous blood specimen / Unknown Venipuncture / Unknown 12/26/2024 2:50 AM EDT 12/26/2024 3:09 AM EDT Narrative [facility] - 12/26/2024 3:24 AM EDT OPTIMAL INR RANGES FOR PATIENT ON ORAL ANTICOAGULANT THERAPY Prevention of venous thromboembolism INR 2.0 to 3.0 In patients with heart disease: Atrial fibrillation INR 2.0 to 3.0 Valvular heart disease INR 2.0 to 3.0 Tissue heart valves INR 2.0 to 3.0 Mechanical prosthetic valves INR 2.5 to 3.5 Prevention of recurrent WA INR 2.5 to 3.5 us Aramis Abreu MD LAB BLOOD ORDERABLES Final Res ult [facility] [address] [place] [address] * (ABNORMAL) Prealbumin (12/26/2024 2:50 AM EDT) Prealbumin, Plasma 10.0(L) 20.0 - 41.0 mg/dL 12/26/2024 3:47 AM EDT [facility] Blood Venous blood specimen / Unknown Venipuncture / Unknown 12/26/2024 2:50 AM EDT 12/26/2024 3:09 AM EDT us Iesha Pride MD LAB BLOOD ORDERABLE S Final Result [facility] [address] [place] [address] * (ABNORMAL) Hemoglobin A1c (12/26/2024 2:50 AM EDT) Only the most recent of2 resultswithin the time period is included. Hemoglobin A1c 6.5(H) <5.7 % 12/26/2024 10:53 AM EDT [facility] Blood Venous blood specimen / Unknown Venipuncture / Unknown 12/26/2024 2:50 AM EDT 12/26/2024 3:17 AM EDT Narrative [facility] - 12/26/2024 10:53 AM EDT HA1C Interpretive Data: Diagnosis of Diabetes: Diabetic > or = 6.5% Pre-diabetic 5.7 to 6.4% Non-diabetic < or = 5.6% Glycemic Targets for Type I and Type II Diabetics: Non- Adults <7.0% Adults <6.0% Children and Adolescents <7.5% Source: [place] [employer]. Standards of medical care in diabetes,2017. Diabetes Care.2017:40 (suppl 1):S1-S135. Result Gael Abreu MD LAB BLOOD ORDERABLES Final Res ult Performing Organization Address [facility] Co de Phone Number [facility] [address] [place] [address] * Folate (12/26/2024 2:50 AM EDT) Folate, Serum 5.8 >4.6 ng/mL 12/26/2024 4:05 AM EDT [facility] Blood Venous blood specimen / Unknown Venipuncture / Unknown 12/26/2024 2:50 AM EDT 12/26/2024 3:17 AM EDT Result Gael Abreu MD LAB BLOOD ORDERABLES Final Res ult Performing Organization Address City/[facility]/ZIP Co de Phone Number [facility] [address] [place] [address] * Ferritin (12/26/2024 2:50 AM EDT) Ferritin, Serum 113 20 - 400 ng/mL 12/26/2024 3:56 AM EDT [facility] Blood Venous blood specimen / Unknown Venipuncture / Unknown 12/26/2024 2:50 AM EDT 12/26/2024 3:17 AM EDT us Aramis Abreu MD LAB BLOOD ORDERABLES Final Res ult Performing Organization Address [facility] Co de Phone Number [facility] [address] [place] [address] * Vitamin B12 (12/26/2024 2:50 AM EDT) Pathologist [facility] [place] Vitamin B12, Serum 979 210 - 1,033 pg/mL 12/26/2024 4:05 AM EDT [facility] Blood Venous blood specimen / Unknown Venipuncture / Unknown 12/26/2024 2:50 AM EDT 12/26/2024 3:17 AM EDT us Aramis Abreu MD LAB BLOOD ORDERABLES Final Res ult Performing Organization Address [facility] de Phone Number [facility] [address] [place] [address] * Cortisol (12/26/2024 2:50 AM EDT) [facility] Cortisol 13.00 Before 10am: 3.7 - 19.4. After 5pm: 2.9 - 17.3 ug/dL 12/26/2024 4:24 AM EDT [facility] Comment:Testing performed on [employer], standardized against FDC Reference Standard concentration values assigned by LC-MS/MS and verified by BCR 192 and BCR 193 certified reference materials. Blood Venous blood specimen / Unknown Venipuncture / Unknown 12/26/2024 2:50 AM EDT 12/26/2024 3:17 AM EDT us Aramis Abreu MD LAB REF LAB BLOOD AND FLUID OR D Final Result Performing Organization Address [facility] Co de Phone Number [facility] [address] [place] [address] * (ABNORMAL) CEA (12/26/2024 2:50 AM EDT) Pathologist [facility] [place] CEA, Serum 8.5(H) <4.0 ng/mL 12/26/2024 3:56 AM EDT [facility] Blood Venous blood specimen / Unknown Venipuncture / Unknown 12/26/2024 2:50 AM EDT 12/26/2024 3:17 AM EDT Narrative [facility] - 12/26/2024 3:56 AM EDT Normal range for smokers: < 5.5 ng/ml Normal range for non-smokers: <=4.0 ng/ml Performed by Luiza electrochemiluminescent immunoassay. Results obtained with different test methods or kits cannot be used interchangeably. Aramis Abreu MD LAB BLOOD ORDERABLES Final Res ult [facility] [address] [place] [address] * (ABNORMAL) Hepatic Function Panel (12/26/2024 2:50 AM EDT) Conjugated Bilirubin, Plasma 0.6(H) <=0.3 mg/dL 12/26/2024 3:46 AM EDT [facility] Comment:Hemolyzed, result ma y be falsely decreased. Alkaline Phosphatase, Plasma 160(H) 40 - 115 U/L 12/26/2024 3:46 AM EDT [facility] Total Bilirubin, Plasma 1.8(H) 0.2 - 1.1 mg/dL 12/26/2024 3:46 AM EDT [facility] Albumin, Plasma 3.4(L) 3.5 - 5.2 g/dL 12/26/2024 3:46 AM EDT [facility] Total Protein 6.0(L) 6.3 - 7.9 g/dL 12/26/2024 3:46 AM EDT [facility] ALT, Plasma 102(H) 10 - 50 U/L 12/26/2024 3:46 AM EDT [facility] AST, Plasma 32 10 - 50 U/L 12/26/2024 3:46 AM EDT [facility] Comment:Hemolyzed, result ma y be falsely increased. Blood Venous blood specimen / Unknown Venipuncture / Unknown 12/26/2024 2:50 AM EDT 12/26/2024 3:09 AM EDT Aramis Abreu MD LAB BLOOD ORDERABLES Final Res ult [facility] [address] [place] [address] * (ABNORMAL) Lipid panel (12/26/2024 2:50 AM EDT) Cholesterol, Plasma 119 <200 mg/dL 12/26/2024 3:46 AM EDT [facility] Comment: Cholesterol Reference Range (age >17 years): Desirable <200 mg/dL Borderline 200 to 239 mg/dL Undesirable >239 mg/dL HDL 37(L) >=40 mg/dL 12/26/2024 3:46 AM EDT [facility] Comment: HDL Cholesterol Reference Ranges (age >17 years): Female, acceptable > or = 50 mg/dL Male, acceptable > or = 40 mg/dL Triglycerides, Plasma 75 <150 mg/dL 12/26/2024 3:46 AM EDT [facility] Comment: Triglyceride Reference Range (age >17 years): Desirable: <150 mg/dL Borderline high: 150 to 199 mg/dL High: 200 to 499 mg/dL Very high: >499 mg/dL Increased risk of pancreatitis: >1000 mg/dL Cholesterol/HDL Ratio 3 12/26/2024 3:46 AM EDT [facility] LDL, Calculated 67 <100 mg/dL 3:46 AM EDT [facility] Comment: LDL Cholesterol Reference Range (age [...] 12 hours? No 12/26/2024 3:46 AM EDT [facility] Blood Venous blood specimen / Unknown Venipuncture / Unknown 12/26/2024 2:50 AM EDT 12/26/2024 3:09 AM EDT us Aramis Abreu MD LAB BLOOD ORDERABLES Final Res ult [facility] [address] [place] [address] * (ABNORMAL) Basic metabolic panel (12/26/2024 2:50 AM EDT) Glucose, Plasma 128(H) 74 - 99 mg/dL 12/26/2024 3:47 AM EDT [facility] BUN, Plasma 18 8 - 23 mg/dL 12/26/2024 3:47 AM EDT [facility] Creatinine, Plasma 1.10 0.70 - 1.20 mg/dL 12/26/2024 3:47 AM EDT [facility] BUN/Creatinine Ratio 16 12/26/2024 3:47 AM EDT [facility] Sodium, Plasma 139 136 - 145 mmol/L 12/26/2024 3:47 AM EDT [facility] Potassium, Plasma 4.7 3.6 - 4.9 mmol/L 12/26/2024 3:47 AM EDT [facility] Chloride, Plasma 105 97 - 107 mmol/L 12/26/2024 3:47 AM EDT [facility] CO2, Plasma 23 22 - 29 mmol/L 12/26/2024 3:47 AM EDT [facility] Anion Gap 11 6 - 16 mmol/L 12/26/2024 3:47 AM EDT [facility] Total Calcium, Plasma 8.9 8.9 - 10.2 mg/dL 12/26/2024 3:47 AM EDT [facility] eGFRcr 75.0 mL/min/1.7 3m*2 12/26/2024 3:47 AM EDT [facility] Comment:Reported eGFRcr in m L/min/1.73m2 is based the CKD-EPI 2020 equation that does not use a race coefficient. Blood Venous blood specimen / Unknown Venipuncture / Unknown 12/26/2024 2:50 AM EDT 12/26/2024 3:09 AM EDT us Aramis Abreu MD LAB BLOOD ORDERABLES Final Res ult [facility] [address] [place] [address] * CT Chest w IV Contrast (12/25/2024 [...] Raya MD on 12/26/2024 1:59 PM us Aramis Abreu MD IMG CT [...] by Madeline Gallardo on 12/25/2024 2:50 PM Aramis Abreu MD IMG CT PROCEDURES [...] sample was sent for cytology analysis. Onsite body make up artist was not present Recommendations Await pathology results [...] fo this. They report Dr. Chirinos in [place] can see him regularly, if any of these occur. Indication Mass of head of pancreas Medications See anesthesia record for anesthesia administered medications. 500 mg IV Levaquin 100 mg [place] indomethacin 1.0 mg IV glucagon (given as two doses of 0.5 mg) Staff Staff Role Sae Barriga MD Anesthesiologist Darian Jaramillo MD Proceduralist Pascual Dunlap CRNA CRNA Pitt, Emeric O Endo Residential Life Director Pedro Luis Henry RN Endo Nurse Preprocedure [...] sample was sent for cytology analysis. Onsite body make up artist was not present us Kiko Ball MD GI PROCEDURE ORDERABLES Final Re sult * ERCP (12/20/2024 9:46 AM EDT) Anatomical Region Laterality Modality Endoscopy Addenda Addendum by Darian Jaramillo MD on 12/20/2024 10:09 AM EDT Table formatting from the original result was not included. Impression Prior to introduction of the duodenoscope, online content coordinator image was obtained. This showed no foreign [...] medications. 500 mg IV Levaquin 100 mg [place] indomethacin 1.0 mg IV glucagon (given as two doses of 0.5 mg) Staff Staff Role Sae Barriga MD Anesthesiologist Darian Jaramillo MD Proceduralist Pascual Dunlap CRNA CRNA Pitt, Emeric O Endo Residential Life Director Pedro Luis Henry RN Endo Nurse Preprocedure [...] Findings Prior to introduction of the duodenoscope, online content coordinator image was obtained. This showed no foreign [...] 8:21 AM EDT) Case Report Cytology Case: [id number] Authorizing Provider: Darian Jaramillo MD Collected: 12/20/2024 0821 Ordering Location: [facility] Endoscopy Received: 12/20/2024 1104 Pathologist: Carol Hyman MD Specimen: Pancreas, Fine Needle Aspiration, HEAD OF PANCREAS MASS, ENDOSCOPIC ULTRASOUND GUIDED FINE NEEDLE ASPIRATION 12/21/2024 4:16 PM EDT [facility] Final Diagnosis A. HEAD OF PANCREAS MASS, ENDOSCOPIC ULTRASOUND GUIDED FINE NEEDLE ASPIRATION: - SCANT MARKEDLY ATYPICAL CELLS, MOST COMPATIBLE WITH ADENOCARCINOMA (SEE COMMENT). 12/21/2024 4:16 PM EDT [facility] at 1616 EDT Comment Clinical and imaging correlation is suggested. 12/21/2024 4:16 PM EDT [facility] Intradepartmental Consultation with Agreement Dr. Dayami Marks 12/21/2024 4:16 PM EDT [facility] Immediate Evaluation FNA performed by Dr. Jaramillo Number of sticks: Not provided This service has been rendered in part by a resident. A pathologist has personally reviewed the slides/tissue and has rendered and is responsible for diagnosis for the diagnosis that appears on the report. 12/21/2024 4:16 PM EDT [facility] Gross Description A. HEAD OF PANCREAS MASS, ENDOSCOPIC ULTRASOUND GUIDED FINE NEEDLE ASPIRATION 10 ml's tinted Needle rinse fluid processed as ThinPrep and cellblock for complete evaluation of sample. Slides were NOT received Cold Time: 4h 39m 12/21/2024 4:16 PM EDT [facility] Note: A resident was involved in the service. I attest I examined the relevant preparations for the specimens and confirmed the diagnosis or interpretation. 12/21/2024 4:16 PM EDT [facility] Clinical Information K86.89 - Mass of head of pancreas [ICD-10-CM] 12/21/2024 4:16 PM EDT [facility] Fine Needle Aspirate Pancreatic structure / Unknown 12/20/2024 8:21 AM EDT 12/20/2024 11:04 AM EDT us Darian Jaramillo MD LAB CYTOLOGY ORDERABLES Fin al Result Performing Organization Address [facility]/ZIP Co de Phone Number [facility] [address] [place] [address] * Surgical Pathology Exam (12/20/2024 8:10 AM EDT) Case Report Surgical Pathology Case: [id number] Authorizing Provider: Darian Jaramillo MD Collected: 12/20/2024 0810 Ordering Location: [facility] Endoscopy Received: 12/20/2024 1014 Pathologist: Jet Mike MD Specimen: Stomach, Gastric Bx 12/21/2024 9:37 AM EDT [facility] Final Diagnosis STOMACH, BIOPSY: - NO PATHOLOGIC ABNORMALITY - NO EVIDENCE OF HELICOBACTER-L CARLOTA ORGANISMS ON ROUTINE STAIN 12/21/2024 9:37 AM EDT [facility] at 0937 EDT Clinical Information K86.89 - Mass of head of pancreas [ICD-10-CM] 12/21/2024 9:37 AM EDT [facility] Gross Description A. GASTRIC BX Received in formalin labeled gastric biopsy are 4 swanson-brown soft tissue fragments measuring 0.2-0.4 cm in greatest dimension. Entirely submitted in cassette A1. Cold Time: <1m Eve Palmer 12/21/2024 9:37 AM EDT [facility] Tissue Stomach structure / Unknown 12/20/2024 8:10 AM EDT 12/20/2024 10:14 AM EDT us Darian Jaramillo MD LAB PATHOLOGY ORDERABLES Fi nal Result [facility] [address] [place] [address] * [place] AN ELECTIVE ENDOTRACHEAL AIRWAY, PB ANESTHESIA PLACEHOLDER (12/20/2024 8:00 AM EDT) Narrative Pascual Dunlap CRNA - 12/20/2024 8:00 AM EDT Pascual Dunlap CRNA 12/20/2024 8:05 AM Airway Date/Time: 12/20/2024 8:00 AM Reason: elective Airway not difficult General Information and Staff Patient location during procedure: OR Anesthesiologist: Sae Barriga MD DISTRICT MANAGER POSTAL SERVICE: Pascual Dunlap CRNA Performed: DISTRICT MANAGER POSTAL SERVICE Patient Condition Indications for airway management: anesthesia [...] using the following sequences: coronal single shot [id number] fast spin echo, axial T2 weighted sequences [...] LAB HEMATOLOGY METHOD 12/05/2024 8:18 PM EDT [facility] Blood Venous blood specimen / Unknown Venipuncture / Unknown 12/05/2024 8:08 PM EDT 12/05/2024 8:13 PM EDT us Raysa CAMARILLO LAB BLOOD ORDERABLES Final R esult [facility] [address] [place] [id number] * (ABNORMAL) Pain Management, Quantitative Urine Drug Testing (12/04/2024 11:00 AM EDT) Alpha [place] Alprazolam <20 <20 ng/mL 12/06 9:57 PM EDT [facility] Alpha [place] Midazolam <20 <20 ng/mL 2024 9:57 PM EDT [facility] Alpha [place] Triazolam <20 <20 ng/mL 2024 9:57 PM EDT [facility] Alprazolam <10 <10 ng/mL 12/06/2024 9:57 PM EDT [facility] Aminoclonazepam <20 <20 ng/mL 9:57 PM EDT [facility] Amphetamine <50 <50 ng/mL 12/06/2024 9:57 PM EDT [facility] Benzoylecgonine <50 <50 ng/mL 9:57 PM EDT [facility] Buprenorphine <10 <10 ng/mL 12/06/2024 9:57 PM EDT [facility] Buprenorphine Glucuronide <50 <50 ng/mL 12/06/2024 9:57 PM EDT [facility] Butalbital <50 <50 ng/mL 12/06/2024 9:57 PM EDT [facility] 9 Carboxy THC >250(H) <10 ng/mL 12/06/2024 9:57 PM EDT [facility] 9 Carboxy THC Glucuronide >500(H) <25 ng/mL 12/06/2024 9:57 PM EDT [facility] Clonazepam <10 <10 ng/mL 12/06/2024 9:57 PM EDT [facility] Codeine <50 <50 ng/mL 12/06/2024 9:57 PM EDT [facility] Codeine Glucuronide <50 <50 ng/mL 12/06 9:57 PM EDT [facility] Cyclobenzaprine <50 <50 ng/mL 9:57 PM EDT [facility] Desmethyl Tramadol <50 <50 ng/mL 2024 9:57 PM EDT [facility] Diazepam <10 <10 ng/mL 12/06/2024 9:57 PM EDT [facility] EDDP - Methadone Metabolite <50 <50 ng/mL 12/06/2024 9:57 PM EDT [facility] Fentanyl <1 <1 ng/mL 12/06/2024 9:57 PM EDT [facility] Hydrocodone <50 <50 ng/mL 12/06/2024 9:57 PM EDT [facility] Hydromorphone <50 <50 ng/mL 12/06/2024 9:57 PM EDT [facility] Hydromorphone Glucuronide <50 <50 ng/mL 12/06/2024 9:57 PM EDT [facility] Lorazepam <20 <20 ng/mL 12/06/2024 9:57 PM EDT [facility] Lorazepam Glucuronide <50 <50 ng/mL 12/06/2024 9:57 PM EDT [facility] MDA <50 <50 ng/mL 12/06/2024 9:57 PM EDT [facility] MDMA <50 <50 ng/mL 12/06/2024 9:57 PM EDT [facility] Meperidine <50 <50 ng/mL 12/06/2024 9:57 PM EDT [facility] Methadone <50 <50 ng/mL 12/06/2024 9:57 PM EDT [facility] Methamphetamine <50 <50 ng/mL 9:57 PM EDT [facility] Methylphenidate <50 <50 ng/mL 9:57 PM EDT [facility] 6 Monoacetyl morphine <10 <10 ng/mL 12/06/2024 9:57 PM EDT [facility] Morphine >1,000(H) <50 ng/mL 12/06/2024 9:57 PM EDT [facility] Morphine Glucuronide >1,000(H) <50 ng/mL 11/25 9:57 PM EDT [facility] Naloxone <50 <50 ng/mL 12/06/2024 9:57 PM EDT [facility] Naloxone Glucuronide <50 <50 ng/mL 11/25 9:57 PM EDT [facility] Norbuprenorphine <10 <10 ng/mL 12/07/19 9:57 PM EDT [facility] Norbuprenorphine Glucuronide <50 <50 ng/mL 12/06/2024 9:57 PM EDT [facility] Nordiazepam <20 <20 ng/mL 12/06/2024 9:57 PM EDT [facility] Norfentanyl <2 <2 ng/mL 12/06/2024 9:57 PM EDT [facility] Normeperidine <50 <50 ng/mL 12/06/2024 9:57 PM EDT [facility] PCP Quant, Ur <50 <50 ng/mL 12/06/2024 9:57 PM EDT [facility] Phenobarbital <50 <50 ng/mL 12/06/2024 9:57 PM EDT [facility] Oxazepam <20 <20 ng/mL 12/06/2024 9:57 PM EDT [facility] Oxazepam Glucuronide <50 <50 ng/mL 11/25 9:57 PM EDT [facility] Oxycodone <50 <50 ng/mL 12/06/2024 9:57 PM EDT [facility] Oxymorphone <50 <50 ng/mL 12/06/2024 9:57 PM EDT [facility] Oxymorphone Glucuronide <50 <50 ng/mL 12/06/2024 9:57 PM EDT [facility] Secobarbital <50 <50 ng/mL 12/06/2024 9:57 PM EDT [facility] Tramadol <50 <50 ng/mL 12/06/2024 9:57 PM EDT [facility] Temazepam <20 <20 ng/mL 12/06/2024 9:57 PM EDT [facility] Temazepam Glucuronide <50 <50 ng/mL 12/06/2024 9:57 PM EDT [facility] Urine Urine specimen obtained by clean catch procedure / Unknown Non-blood Collection / Unknown 12/04/2024 11:00 AM EDT 12/04/2024 11:17 AM EDT Narrative [facility] - 12/06/2024 9:57 PM EDT This [...] laboratory. Test performed by LC-MS/MS at the [facility]. This test was developed and its performance characteristics determined by [facility]. It has not been cleared or approved by the FDA. The laboratory is regulated under CLIA as qualified to perform high-complexity testing. This test is used for clinical purposes. Jeff Cramer LABORATORY CHEMIST LAB URINE ORDERABLES Final Re sult Performing Organization Address [facility] de Phone Number [facility] [address] [place] [address] * Urinalysis Microscopic Examination (12/04/2024 11:00 AM EDT) Urine Urine specimen obtained by clean catch procedure / Unknown Non-blood Collection / Unknown 12/04/2024 11:00 AM EDT 12/04/2024 11:17 AM EDT Taliashe Cuauhtemoc Cramer LABORATORY CHEMIST LAB URINE ORDERABLES Final Re sult Performing Organization Address [facility] de Phone Number [facility] [address] [place] [address] * Urea Nitrogen, Random Urine (12/04/2024 11:00 AM EDT) Urea Nitrogen, Urine 1,201 mg/dL 12/04/2024 1:34 PM EDT [facility] Urine Urine specimen obtained by clean catch procedure / Unknown Non-blood Collection / Unknown 12/04/2024 11:00 AM EDT 12/04/2024 11:17 AM EDT [facility] LABORATORY CHEMIST LAB URINE ORDERABLES Final Re sult Performing Organization Address [facility] de Phone Number [facility] [address] [place] [address] * Sodium, Random, Urine (12/04/2024 11:00 AM EDT) Sodium, Urine 34 mmol/L 12/04/2024 11:53 AM EDT [facility] Urine Urine specimen obtained by clean catch procedure / Unknown Non-blood Collection / Unknown 12/04/2024 11:00 AM EDT 12/04/2024 11:17 AM EDT Jeff Cramer APRN LAB URINE ORDERABLES Final Re sult Performing Organization Address [facility] Co de Phone Number [facility] [address] [place] [address] * Protein, Random, Urine with Creatinine (12/04/2024 11:00 AM EDT) Protein, Urine 18 mg/dL 12/04/2024 11:53 AM EDT [facility] Creatinine, Urine 195 mg/dL 12/04/2024 11:53 AM EDT [facility] Protein/Creati nine Ratio 0.1 mg/mg Creat 12/04/2024 11:53 AM EDT [facility] Urine Urine specimen obtained by clean catch procedure / Unknown Non-blood Collection / Unknown 12/04/2024 11:00 AM EDT 12/04/2024 11:17 AM EDT Jeff Cramer APRN LAB URINE ORDERABLES Final Re sult Performing Organization Address [facility] de Phone Number [facility] [address] [place] [address] * (ABNORMAL) Comprehensive Urine Drug Screening, Qualitative Assay, >= 27 Drug Classes (1:00 AM EDT) Acetaminophen Negative Negative 12/05/2024 6:03 PM EDT [facility] Alprazolam Negative Negative 12/05/2024 6:03 PM EDT [facility] Amantadine Negative Negative 12/05/2024 6:03 PM EDT [facility] Amitriptyline Negative Negative 12/05/2024 6:03 PM EDT [facility] Amphetamine Negative Negative 12/05/2024 6:03 PM EDT [facility] Atenolol Negative Negative 12/05/2024 6:03 PM EDT [facility] Benzoylecgonine Negative Negative 6:03 PM EDT [facility] Bisoprolol Negative Negative 12/05/2024 6:03 PM EDT [facility] Bupropion Negative Negative 12/05/2024 6:03 PM EDT [facility] Butalbital Negative Negative 12/05/2024 6:03 PM EDT [facility] Carbamazepine Negative Negative 12/05/2024 6:03 PM EDT [facility] Carisoprodol Negative Negative 12/05/2024 6:03 PM EDT [facility] Chlorpheniramine Negative Negative 12/06/19 6:03 PM EDT [facility] Citalopram Negative Negative 12/05/2024 6:03 PM EDT [facility] Clindamycin Negative Negative 12/05/2024 6:03 PM EDT [facility] Clonidine Negative Negative 12/05/2024 6:03 PM EDT [facility] Clopidogrel / Ticlopidine Negative Negative 12/05/2024 6:03 PM EDT [facility] Cocaethylene Negative Negative 12/05/2024 6:03 PM EDT [facility] Cocaine Negative Negative 12/05/2024 6:03 PM EDT [facility] Codeine Negative Negative 12/05/2024 6:03 PM EDT [facility] Cyclobenzaprine Negative Negative 6:03 PM EDT [facility] Desvenlafaxine Negative Negative 12/05/2024 6:03 PM EDT [facility] Dextromethorphan Negative Negative 12/06/19 6:03 PM EDT [facility] Diazepam Negative Negative 12/05/2024 6:03 PM EDT [facility] Diltiazem Negative Negative 12/05/2024 6:03 PM EDT [facility] Diphenhydramine Negative Negative 6:03 PM EDT [facility] Doxepine Negative Negative 12/05/2024 6:03 PM EDT [facility] Doxylamine Negative Negative 12/05/2024 6:03 PM EDT [facility] EDDP-Methadone metabolite Negative Negative 12/05/2024 6:03 PM EDT [facility] Fentanyl Negative Negative 12/05/2024 6:03 PM EDT [facility] Fluconazole Negative Negative 12/05/2024 6:03 PM EDT [facility] Fluoxetine Negative Negative 12/05/2024 6:03 PM EDT [facility] Guaifenesin Negative Negative 12/05/2024 6:03 PM EDT [facility] Haloperidol Negative Negative 12/05/2024 6:03 PM EDT [facility] Heroin/6-BROOKE Negative Negative 12/05/2024 6:03 PM EDT [facility] Hydrocodone Negative Negative 12/05/2024 6:03 PM EDT [facility] Hydroxyzine / Cetirizine metabolite Negative Negative 12/05/2024 6:03 PM EDT [facility] Ibuprofen Negative Negative 12/05/2024 6:03 PM EDT [facility] Imipramine Negative Negative 12/05/2024 6:03 PM EDT [facility] Ketamine Negative Negative 12/05/2024 6:03 PM EDT [facility] Labetolol Negative Negative 12/05/2024 6:03 PM EDT [facility] Lamotrigine Negative Negative 12/05/2024 6:03 PM EDT [facility] Levetiracetam Negative Negative 12/05/2024 6:03 PM EDT [facility] Lidocaine Negative Negative 12/05/2024 6:03 PM EDT [facility] MDA Negative Negative 12/05/2024 6:03 PM EDT [facility] MDMA Negative Negative 12/05/2024 6:03 PM EDT [facility] Memantine Negative Negative 12/05/2024 6:03 PM EDT [facility] Meperidine Negative Negative 12/05/2024 6:03 PM EDT [facility] Meprobamate Negative Negative 12/05/2024 6:03 PM EDT [facility] Metaxalone Negative Negative 12/05/2024 6:03 PM EDT [facility] Methamphetamine Negative Negative 6:03 PM EDT [facility] Methocarbamol Negative Negative 12/05/2024 6:03 PM EDT [facility] Methylecgonine Negative Negative 12/05/2024 6:03 PM EDT [facility] Metoclopramide Negative Negative 12/05/2024 6:03 PM EDT [facility] Metoprolol Negative Negative 12/05/2024 6:03 PM EDT [facility] Metronidazole Negative Negative 12/05/2024 6:03 PM EDT [facility] Midazolam Negative Negative 12/05/2024 6:03 PM EDT [facility] Midazolam Metabolite Negative Negative 12/05/2024 6:03 PM EDT [facility] Mirtazapine Negative Negative 12/05/2024 6:03 PM EDT [facility] Misc Test Result Positive(A) Negative 025 6:03 PM EDT [facility] Comment: Gabapentin: Detected Morphine: Detected Naproxen Negative Negative 12/05/2024 6:03 PM EDT [facility] Nefazodone Negative Negative 12/05/2024 6:03 PM EDT [facility] Norfentanyl Negative Negative 12/05/2024 6:03 PM EDT [facility] Nortriptyline Negative Negative 12/05/2024 6:03 PM EDT [facility] Ordanstron Negative Negative 12/05/2024 6:03 PM EDT [facility] Oxcarbazepine Negative Negative 12/05/2024 6:03 PM EDT [facility] Oxycodone Negative Negative 12/05/2024 6:03 PM EDT [facility] Paroxethine Negative Negative 12/05/2024 6:03 PM EDT [facility] Phenobarbital Negative Negative 12/05/2024 6:03 PM EDT [facility] Phentermine Negative Negative 12/05/2024 6:03 PM EDT [facility] Phenytoin Negative Negative 12/05/2024 6:03 PM EDT [facility] Primidone Negative Negative 12/05/2024 6:03 PM EDT [facility] Promethazine Negative Negative 12/05/2024 6:03 PM EDT [facility] Propofol Negative Negative 12/05/2024 6:03 PM EDT [facility] Propranolol Negative Negative 12/05/2024 6:03 PM EDT [facility] Quetiapine Negative Negative 12/05/2024 6:03 PM EDT [facility] Quinine Negative Negative 12/05/2024 6:03 PM EDT [facility] Rantidine Negative Negative 12/05/2024 6:03 PM EDT [facility] Sertraline Negative Negative 12/05/2024 6:03 PM EDT [facility] Spironolactone Negative Negative 12/05/2024 6:03 PM EDT [facility] Tizanidine Negative Negative 12/05/2024 6:03 PM EDT [facility] Topiramate Negative Negative 12/05/2024 6:03 PM EDT [facility] Tramadol Negative Negative 12/05/2024 6:03 PM EDT [facility] Trazadone/ Trazadone metabolite Negative Negative 12/05/2024 6:03 PM EDT [facility] Trimethoprim Negative Negative 12/05/2024 6:03 PM EDT [facility] Valproic Acid Negative Negative 12/05/2024 6:03 PM EDT [facility] Venlafaxine Negative Negative 12/05/2024 6:03 PM EDT [facility] Verapamil Negative Negative 12/05/2024 6:03 PM EDT [facility] Zolpidem Negative Negative 12/05/2024 6:03 PM EDT [facility] Xylazine Negative Negative 12/05/2024 6:03 PM EDT [facility] Urine Urine specimen obtained by clean catch procedure / Unknown Non-blood Collection / Unknown 12/04/2024 11:00 AM EDT 12/04/2024 11:17 AM EDT us Jeff Cramer APRN LAB URINE ORDERABLES Final Re sult [facility] [address] [place] [address] * (ABNORMAL) Urinalysis with reflex microscopic (Culture NOT Included) (12/04/2024 11:00 AM EDT) Color, Urine Dark Yellow LAB URINALYSIS - AUTOMATED METHOD 12/04/2024 11:40 AM [facility] Clarity, Urine Clear LAB URINALYSIS - AUTOMATED METHOD 12/04/2024 11:40 AM [facility] Spec [place], Urine >1.030(H) 1.005 - 1.030 LAB URINALYSIS - AUTOMATED METHOD 12/04/2024 11:40 AM [facility] pH, Urine 5.5 5.0 - 8.0 LAB URINALYSIS - AUTOMATED METHOD 12/04/2024 11:40 AM [facility] Protein, Urine Trace(A) Negative mg/dL LAB URINALYSIS - AUTOMATED METHOD 12/04/2024 11:40 AM [facility] Glucose, Urine Negative Negative mg/dL LAB URINALYSIS - AUTOMATED METHOD 12/04/2024 11:40 AM [facility] Ketones, Urine Negative Negative mg/dL LAB URINALYSIS - AUTOMATED METHOD 12/04/2024 11:40 AM [facility] Blood, Urine Negative Negative LAB URINALYSIS - AUTOMATED METHOD 12/04/2024 11:40 AM [facility] Bilirubin, Urine Small(A) Negative LAB URINALYSIS - AUTOMATED METHOD 12/04/2024 11:40 AM [facility] Urobilinogen, Urine 1.0 0.2 to 1.0 mg/dL LAB URINALYSIS - AUTOMATED METHOD 12/04/2024 11:40 AM [facility] Leukocytes, Urine Trace(A) Negative LAB URINALYSIS - AUTOMATED METHOD 12/04/2024 11:40 AM [facility] Nitrite, Urine Negative Negative LAB URINALYSIS - AUTOMATED METHOD 12/04/2024 11:40 AM [facility] RBC, Urine <1 0 to 3 /HPF 12/04/2024 11:40 AM [facility] Comment:This result was prev iously suppressed from the chart. WBC, Urine 0 - 5 0 to 5 /HPF 12/04/2024 11:40 AM [facility] Comment:This result was prev iously suppressed from the chart. Squamous Epithelial Cells 0 - 2 0 to 5 /HPF 12/04/2024 11:40 AM [facility] Comment:This result was prev iously suppressed from the chart. Hyaline Casts 0 - 2 0 to 5 /LPF 12/04/2024 11:40 AM EDT [facility] Comment:This result was prev iously suppressed from the chart. Bacteria, Urine Negative Negative 12/04/2024 11:40 AM EDT [facility] Comment:This result was prev iously suppressed from the chart. Urine Urine specimen obtained by clean catch procedure / Unknown Non-blood Collection / Unknown 12/04/2024 11:00 AM EDT 12/04/2024 11:17 AM EDT Narrative HEALTHCARE LAB - 12/04/2024 11:40 AM EDT Performed by manual method Jeff Cramer APRN LAB URINE ORDERABLES Final Re sult [facility] [address] [place] [address] * ECG Adult (12/04/2024 5:57 AM EDT) EKG DIAGNOSIS CLASS Abnormal MUSE ECG Ventricular Rate 110 BPM MUSE ECG QRSD Interval 100 ms MUSE ECG QT Interval 354 ms MUSE ECG QTC Interval 479 ms MUSE ECG R [place] 62 degrees MUSE ECG T Wave [place] -8 degrees MUSE ECG Diagnosis Atrial fibrillation with rapid ventricular response MUSE ECG Diagnosis Abnormal QRS-T angle, consider primary T wave abnormality MUSE ECG Diagnosis Abnormal ECG MUSE ECG Diagnosis MUSE ECG Diagnosis Confirmed by Lex Sorto ([id number]) on 12/04/2024 1:47:13 PM MUSE ECG 12/04/2024 5:57 AM EDT 12/04/2024 1:47 PM EDT Jeff Cramer APRN ECG ORDERABLES Final Result MUSE ECG * (ABNORMAL) POCT glucose meter (12/04/2024 5:35 AM EDT) Pathologist [facility] POCT Glucose 132(H) 74 - 99 mg/dL [...] Comment 12/04/2024 5:38 AM EDT [facility]ALTH[facility]ARE [facility] Raw Stock Drier Tender ID Aissatou Tuttle 12/04/2024 5:38 AM EDT [facility]ARE [facility] Device ID [id number] 12/04/2024 5:38 AM EDT [facility] Specimen Type POC Capillary 12/04/2024 5:38 AM EDT [facility] Blood Capillary blood specimen / Unknown 12/04/2024 5:35 AM EDT 12/04/2024 5:38 AM EDT us Kiko Ball MD LAB POINT OF CARE TE ST DOCKED DEVICE UNSOLICITED RESULTS Final Result Performing Organization Address City/State/[facility] Co de Phone Number HEALTHCARE LAB [address] [place] [address] * XR Chest 1 View (12/04/2024 5:19 [...] MD on 12/04/2024 10:08 AM Jeff Cramer LABORATORY CHEMIST IMG XR PROCEDURES Final Resul t * ED HIV 1/2 Antibody/Antigen Screen w/Reflex to HIV 1/2 Differentiation (12/03/2024 11:18 PM EDT) [facility] HIV 1 & 2 Antibody/Antigen Screen Non Reactive Non Reactive 12/04/2024 12:09 AM EDT [facility] Comment:Screening for HIV 1 & 2 antibodies, and P24 antigen is NONREACTIVE. No confirmatory testing is required. Blood Venous blood specimen / Unknown Venipuncture / Unknown 12/03/2024 11:18 PM EDT 12/03/2024 11:21 PM EDT Margarito CAMARILLO LAB BLOOD ORDERABLES Final Res ult Performing Organization Address City/[facility] Co de Phone Number [facility] [address] [place] [address] * Hepatitis C Antibody - ED (12/03/2024 11:18 PM EDT) [facility] Hepatitis C Antibody Negative Negative 12/03/2024 11:54 PM EDT [facility] Blood Venous blood specimen / Unknown Venipuncture / Unknown 12/03/2024 11:18 PM EDT 12/03/2024 11:21 PM EDT Margarito CAMARILLO LAB BLOOD ORDERABLES Final Res ult [facility] [address] [place] [address] * Triglycerides (12/03/2024 11:18 PM EDT) [facility] Triglycerides, Plasma 63 <150 mg/dL 12/04/2024 5:00 AM EDT [facility] Comment: Triglyceride Reference Range (age >17 years): Desirable: <150 mg/dL Borderline high: 150 to 199 mg/dL High: 200 to 499 mg/dL Very high: >499 mg/dL Increased risk of pancreatitis: >1000 mg/dL Fasting greater than or equal to 12 hours? Unknown 12/04/2024 5:00 AM EDT [facility]ALTHCARE LAB Blood Venous blood specimen / Unknown Venipuncture / Unknown 12/03/2024 11:18 PM EDT 12/03/2024 11:21 PM EDT Jeff Cramer LABORATORY CHEMIST LAB BLOOD ORDERABLES Final Re sult [facility]ARE [facility] [address] [place] [address] * CT OUTSIDE IMAGES (12/03/2024 6:40 PM [...] updated to appropriate status: Yes Care Teams Metal Tile Lather Relationship Specialty Start Date End Date Raimundo Chirinos MD [facility] [place] [address] PCP - General 11/18/21 Moiz Mcnally MD [address] [facility] [place] [address] Surgeon Neurosurgery 11/18/21 Bridgett Gonzales APRN [address] [place] [address] Nurse Practitioner Neurosurgery 01/07/22 Ynes Rocha LPN [facility] TCM Nurse 12/27/24 Terrance Corral Community Health Worker 12/27/2401/16
--- OUTSIDE RECORDS SUMMARY | 2025-01-16 15:06 | XMS_ITS | Encounter Summary ---
Author Organization [facility] Address [address] [place] [address] Care Team Providers Care Wireless Internet Installer Name Role Phone Raimundo Chirinos MD Primary Care Provider [phone] Moiz Mcnally MD Unavailable [phone] Bridgett Gonzales FIRER AUTOMATIC STOKER Unavailable [phone] Ynes Rocha FEED HOUSE SUPERVISOR Unavailable Unavailab Terrance Hdez Unavailable Unavailable Reason for Visit * Reason Comments Follow-up Encounter Details Date Type Department Care Team (Late st Contact Info) Description 01/09/2025 Patient Outreach POPULATION HEALTH [address] [facility], [address] [place] [address] Terrance Corral Follow-up Social History [...] living in a detention (including now)? No 01/04/2025 CAGE ASSESSMENT Answer [...] drink first t zeb in the morning (EYE-KITCHEN WORKER) to steady your nerves or to get rid of a hangover? 0 12/05/2024 CAGE Questionnaire Score 0 025 Utilities Answer Date Recorded In the past 12 months has th e [employer], gas, oil, or water company threatened to [...] Description 01/24/2025 8:30 AM EDT Office Visit [facility] Multidisciplinary Oncology Clinic [address] [place] [address] Nito Balderas MD [address] [place] [address] [phone] documented as of this encounter Goals Goal [...] documented as of this encounter Care Teams Wireless Internet Installer Relationship Specialty Start Date End Date Raimundo Chirinos MD [address] [place] [address] PCP - General 11/18/21 Moiz Mcnally MD [address] [place] [address] Surgeon Neurosurgery 11/18/21 Bridgett Gonzales APRN [address] [place] [address] Nurse Practitioner Neurosurgery 01/07/22 Ynes Rocha LPN [facility] TCM Nurse 12/27/24 Terrance Corral Community Health Worker 12/27/2401/16 documented as of this encounter
--- OUTSIDE RECORDS SUMMARY | 2025-01-16 15:06 | XMS_ITS | Encounter Summary ---
Author Organization [facility] Address [address] [place] [address] Care Team Providers Care Rn Surgical Name Role Phone Raimundo Chirinos MD Primary Care Provider [phone] Moiz Mcnally MD Unavailable [phone] Bridgett Gonzales METAL PRECISION MACHINE ASSEMBLER Unavailable [phone] Purvi Foy RN Unavailable Unavailab Ynes Lozano QUALITY ASSURANCE TEST PROGRAM MANAGER Unavailable Unavailab Terrance Hdez Unavailable Unavailable Reason for Referral * Consultation (Urgent) - Authorized Specialty Diagnoses / Procedures Referred By Contact Referred To Contact Surgical Oncology / Hematology and Oncology Diagnoses Mass of head of pancreas Adenocarcinoma of head of pancreas (CMS/HCC) Darian Jaramillo MD [address] [facility] [address] [place] [address] Phone: tel:[phone] fax:[phone] [facility] Multidisciplinary Oncology Clinic [address] [place] [address] Phone: tel: fax: Referral ID Status Reason Start Date Expiration Date Visits Requested Visits Authorized [id number] Authorized Specialty Services Required 12/24/2024 06/25/2026 1 1 Encounter Details Date Type Department Care Team (Late st Contact Info) Description 12/24/2024 Orders Only [facility] Medicine Specialties [address] [place], [address]nd [place] [address] Darian Jaramillo MD [address] [place] [address] Adenocarcinoma of head of pancreas (CMS/HCC) (Primary [...] time in the past [address] [facility], were you homeless or living [...] drink first t zeb in the morning (EYE-RIVET DRIVER) to steady your nerves or to get rid of a hangover? 0 12/05/2024 CAGE Questionnaire Score 0 025 Utilities Answer Date Recorded In the past 12 months has th e [employer], gas, oil, or water company threatened [...] Description 01/24/2025 8:30 AM EDT Office Visit [facility] Multidisciplinary Oncology Clinic [address] [place] [address] Nito Balderas MD [address] [place] [address] Scheduled Referrals Name Type Priority Associated Diagnoses [...] documented as of this encounter Care Teams Rn Surgical Relationship Specialty Start Date End Date Raimundo Chirinos MD [address] [place], [place] [address] [address] [place] [address] PCP - General 11/18/21 Moiz Mcnally MD [address] [place] [facility] [place] [address] Surgeon Neurosurgery 11/18/21 Bridgett Gonzales APRN [address] [place] [address] [place] [address] Nurse Practitioner Neurosurgery 01/07/22 Purvi Foy RN CH-VASCULAR & INTERVENTIONAL RADIOLOGY Registered Nurse 12/26/24 12/26/24 Ynes Rocha LPN [facility] TCM Nurse 12/27/24 Terrance Corral Community Health Worker 12/27/2401/16 documented as of this encounter
--- OUTSIDE RECORDS SUMMARY | 2025-01-16 15:06 | XMS_ITS | Encounter Summary ---
Author Organization [facility] Address [address] [place] [address] Care Team Providers Care Seismometer Operator Name Role Phone Raimundo Chirinos MD Primary Care Provider [phone] Moiz Mcnally MD Unavailable [phone] Bridget[address] Gonzales BEAM WARPER Unavailable [phone] Ynes Rocha LPN Unavailable Unavailab Terrance Hdez Unavailable Unavailable Reason for Visit * Reason Comments TCM Call Encounter Details Date Type Department Care Team (Late st Contact Info) Description 01/04/2025 Patient Outreach POPULATION [place] [id number] [facility], [address] [place] [address] Ynes Rocha LPN [facility] TCM Call Social History [...] in a senior living (including now)? No 01/04/2025 CAGE ASSESSMENT Answer [...] drink first t zeb in the morning (EYE-BULLET ASSEMBLY PRESS SETTER OPERATOR) to steady your nerves or to get rid of a hangover? 0 12/05/2024 CAGE Questionnaire Score 0 025 Utilities Answer Date Recorded In the past 12 months has e [employer], gas, oil, or water company threatened to [...] Date: 01/01/2025 Discharge Date: 01/03/2025 Hospital Service: [facility] Discharge Diagnosis: Biliary obstruction 01/04/2025 TCM call [...] Description 01/24/2025 8:30 AM EDT Office Visit [facility] Multidisciplinary Oncology Clinic [address] [place] [address] Nito Balderas MD [address] [place] [address] documented as of this encounter Goals Goal [...] documented as of this encounter Care Teams Seismometer Operator Relationship Specialty Start Date End Date Raimundo Chirinos MD [address] [facility] [address] [place] [address] PCP - General 11/18/21 Moiz Mcnally MD [address] [place] [address] Surgeon Neurosurgery 11/18/21 Bridgett Gonzales APRN [address] [place] [address] Nurse Practitioner Neurosurgery 01/07/22 Ynes Rocha LPN [facility] TCM Nurse 12/27/24 Terrance Corral Community Health Worker 12/27/2401/16 documented as of this encounter
--- OUTSIDE RECORDS SUMMARY | 2025-01-16 15:07 | XMS_ITS | Encounter Summary ---
Author Organization [facility] Address [address] [place] [address] Care Team Providers Care Tank Stave Assembler Name Role Phone Raimundo Chirinos MD Primary Care Provider [phone] Moiz Mcnally MD Unavailable [phone] Bridgett Gonzales FLYER BUILDER Unavailable [phone] Ynes Rocha LPN Unavailable Unavailab Terrance Hdez [...] drink first t zeb in the morning (EYE-SITE LEADER) to steady your nerves or to get [...] Description 01/24/2025 8:30 AM EDT Office Visit [facility] Multidisciplinary Oncology Clinic [address] [place] [address] Nito Balderas MD [address] [place] [address] documented as of this encounter Visit Diagnoses Not on filedocumented in this encounter Additional Health Concerns Assessment Noted Time A fall risk assessment has been complete d for the patient 03/10/2022 9:47 AM EDT A Body Mass Index follow-up plan has been documented for the patient 01/03/2025 2:46 PM EDT documented as of this encounter Care Teams Tank Stave Assembler Relationship Specialty Start Date End Date Raimundo Chirinos MD [address] [place] [address] [address] [place] [address] PCP - General 11/18/21 Moiz Mcnally MD [address] [facility] [place] [address] Surgeon Neurosurgery 11/18/21 Bridgett Gonzales APRN [address] [place] [address] Nurse Practitioner Neurosurgery 01/07/22 Ynes Rocha LPN [facility] TCM Nurse 12/27/24 Terrance Corral Community Health Worker 12/27/2401/16 documented as of this encounter
--- OUTSIDE RECORDS SUMMARY | 2025-01-16 15:07 | XMS_ITS | Encounter Summary ---
Author Organization [facility] Address [address] [place] [address] Care Team Providers Care Housecalls Nurse Name Role Phone Raimundo Chirinos MD Primary Care Provider [phone] Moiz Mcnally MD Unavailable [phone] Bridgett Gonzales OPERATOR CONTROL ROOM Unavailable [phone] Ynes Rocha LPN Unavailable Unavailab Terrance Hdez [...] living in a fci (including now)? No 12/27/2024 CAGE ASSESSMENT Answer [...] drink first t zeb in the morning (EYE-EDUCATIONAL SIGN LANGUAGE INTERPRETER) to steady your nerves or to get [...] Office Visit [facility] Multidisciplinary Oncology Clinic [address] [place] [address] Nito Balderas MD [address] [place] [address] [phone] documented as of this encounter Goals Goal [...] documented as of this encounter Care Teams Housecalls Nurse Relationship Specialty Start Date End Date Raimundo Chirinos MD [address] [place] [address] [address] [place] [address] PCP - General 11/18/21 Moiz Mcnally MD [address] [place] [address] Surgeon Neurosurgery 11/18/21 Bridgett Gonzales APRN [address] [place] [address] Nurse Practitioner Neurosurgery 01/07/22 Ynes Rocha LPN [facility] TCM Nurse 12/27/24 Terrance Corral Community Health Worker 12/27/2401/16 documented as of this encounter
--- OUTSIDE RECORDS SUMMARY | 2025-01-16 15:07 | XMS_ITS | Encounter Summary ---
Author Organization [facility] Address [address] [place] [address] Care Team Providers Care Farm Product Purchaser Name Role Phone Raimundo Chirinos MD Primary Care Provider [phone] Moiz Mcnally MD Unavailable [phone] Bridgett Gonzales FOREST BIOMETRICS PROFESSOR Unavailable [phone] Reason for Visit * Reason Onset Date Comments Scheduling 12/11/2024 Encounter Details Date Type Department Care Team (Late st Contact Info) Description 12/11/2024 Telephone [facility] End[facility] [address] [place] [address] Airam Man Scheduling Social History Tobacco Use [...] any time in the past 12 m [facility], were you homeless or living [...] drink first t zeb in the morning (EYE-SALES BROKER) to steady your nerves or to get [...] TIME THE AFTERNOON BEFORE YOUR PROCEDURE. Location: [place] [address].Parking Garage address is [address] [place] [address] Please remember: Don't eat anything after midnight [...] avoid delays or cancellation. Park in the [facility] garage on [facility] off [facility]. Proceed to Level A and take the free shuttle to the second stop, [facility]. Enter through the revolving door, and go to the Registration Desk. You will be directed to the Endo suite after registration. If you cannot make it to your appointment and need to cancel/reschedule please have the courtesy rinkuall our office as soon as possible at [phone]. Airam Man Advance Endoscopy Procedure [facility] -Gastroenterology Main Advance Endoscopy scheduling # [phone] (office) [phone] (fax) [email or web address] documented in this encounter Plan of Treatment Upcoming Encounters Date Type Department Care Team (Late st Contact Info) Description 01/24/2025 8:30 AM EDT Office Visit [facility] Multidisciplinary Oncology Clinic [address] [place] [address] Nito Balderas MD [address] [place] [address] documented as of this encounter Visit Diagnoses Not on filedocumented in this encounter Additional Health Concerns Assessment Noted Time A fall risk assessment has been complete d for the patient 03/10/2022 9:47 AM EDT A Body Mass Index follow-up plan has been documented for the patient 12/07/2024 6:16 PM EDT documented as of this encounter Care Teams Farm Product Purchaser Relationship Specialty Start Date End Date Raimundo Chirinos MD [address] [place] [address] [address] [place] [address] PCP - General 11/18/21 Moiz Mcnally MD [address] [place] [address] Surgeon Neurosurgery 11/18/21 Bridgett Gonzales APRN [address] [place] [address] Nurse Practitioner Neurosurgery 01/07/22 documented as of this encounter
--- OUTSIDE RECORDS SUMMARY | 2025-01-16 15:07 | XMS_ITS ---
Author Organization [facility] Address [address] [place] [address] Care Team Providers Care Car Scrubber Name Role Phone Raimundo Chirinos MD Primary Care Provider [phone] Moiz Mcnally MD Unavailable [phone] Bridgett Gonzales RETORT PRE COOKER Unavailable [phone] Ynes Rocha LPN Unavailable Unavailab Terrance Hdez Unavailable Unavailable Transitional Care Management Status:Active (Active) Start date:01/04/2025 Enrollment date:01/04/2025 Enrollment reason:Identified using hospital discharge data Overview This episode type is for outpatient care managers enrolling patients in the [facility] Transitional Care Management program. Case Team Name Relationship Phone Ynes Rocha LPN(Responsible Staff) TIMUR Addison se Continued Care and Services Coordination
--- OUTSIDE RECORDS SUMMARY | 2025-01-16 15:07 | XMS_ITS | Encounter Summary ---
Author Organization [facility] Address [address] [place] [address] Care Team Providers Care Detonator Assembler Name Role Phone Raimundo Chirinos MD Primary Care Provider [phone] Moiz Mcnally MD Unavailable [phone] Bridgett Gonzales CASING CLEANER Unavailable [phone] Purvi Foy RN Unavailable Unavailab Ynes Lozano PROFESSIONAL VOLLEYBALL PLAYER Unavailable Unavailab Terrance Hdez Unavailable Unavailable Reason for Visit * Reason Comments Med Refill Encounter Details Date Type Department Care Team (Late Contact Info) Description 06/17/2022 Refill [place] [facility] [address] [place] [address] Rocio Enamorado, CASING CLEANER [address] [place] [address] Social History Tobacco Use Types [...] Description 01/24/2025 8:30 AM EDT Office Visit [facility] Multidisciplinary Oncology Clinic [address] [place] [phone] Nito Balderas MD [address] [place] [address] documented as of this encounter Visit Diagnoses Not on filedocumented in this encounter Additional Health Concerns Assessment Noted Time A fall risk assessment has been complete d for the patient 03/10/2022 9:47 AM EDT documented as of this encounter Care Teams Detonator Assembler Relationship Specialty Start Date End Date Raimunod Chirinos MD [address] [place] [address] PCP - General 11/18/21 Moiz Mcnally MD [address] [address] Surgeon Neurosurgery 11/18/21 Bridgett Gonzales APRN [address] [facility] [place] [address] Nurse Practitioner Neurosurgery 01/07/22 Purvi Foy, RN CH-VASCULAR & INTERVENTIONAL RADIOLOGY Registered Nurse 12/26/24 12/26/24 Ynes Rocha LPN [facility] TCM Nurse 12/27/24 Terrance Corral Community Health Worker 12/27/2401/16 documented as of this encounter
--- OUTSIDE RECORDS SUMMARY | 2025-01-16 15:07 | XMS_ITS ---
Author Organization [facility] Address [address] [place] [address] Care Team Providers Care Substation Mechanic Name Role Phone Raimundo Chirinos MD Primary Care Provider [phone] Moiz Mcnally MD Unavailable [phone] Bridgett Gonzales HELPER/DRIVER Unavailable [phone] Ynes Rocha RIGGING UP MAN Unavailable Unavailab Terrance Hdez Unavailable Unavailable Community Health Work Status:Closed (Closed) Start date:12/27/2024 Enrollment date:12/31/2024 End date:01/16/2025 Close reason:Patient Declined Overview This episode type is for outpatient Community Health Workers enrolling patients in their program. Case Team Name Relationship Phone Terrance Corral(Responsible Staff) Community Health Worker Continued Care and Services Coordination
--- OUTSIDE RECORDS SUMMARY | 2025-01-16 15:07 | XMS_ITS ---
Author Organization [facility] Address [address] [place] [address] Care Team Providers Care Lead Bi Developer Name Role Phone Raimundo Chirinos MD Primary Care Provider [phone] Moiz Mcnally MD Unavailable [phone] Bridgett Gonzales COMPLIANCE AND CONTROL ANALYST Unavailable [phone] Ynes Rocha LPN Unavailable Unavailab Terrance Hdez Unavailable Unavailable Transitional Care Management Status:Closed (Closed) Start date:12/27/2024 Enrollment date:12/27/2024 Enrollment reason:Identified using hospital discharge data End date:01/04/2025 Close reason:Patient Readmitted Overview This episode type is for outpatient care managers enrolling patients in the [facility] Transitional Care Management program. Continued Care and Services Coordination
--- OUTSIDE RECORDS SUMMARY | 2025-01-16 15:07 | XMS_ITS ---
Author Organization [facility] Address [address] [place] [address] Care Team Providers Care Nursery Rn Name Role Phone Raimundo Chirinos MD Primary Care Provider [phone] Moiz Mcnally MD Unavailable [phone] Bridgett Gonzales DRILLER HELPER Unavailable [phone] Ynes Rocha LPN Unavailable Unavailab Terrance Hdez Unavailable Unavailable LINK Program Status:Closed (Closed) Start date:12/26/2024 Enrollment date:12/26/2024 End date:12/26/2024 Close reason:Not Eligible Overview Patient identified for LINK program. Program was closed at the time of review. Following chart review, patient determined to be ineligible based on program criteria. Continued Care and Services Coordination
--- OUTSIDE RECORDS SUMMARY | 2025-01-16 15:07 | XMS_ITS | Encounter Summary ---
Author Organization Healthcare Address [address] [place] [address] Care Team Providers Care Director Of Programming Name Role Phone Raimundo Chirinos MD Primary Care Provider [phone] Moiz Mcnally MD Unavailable [phone] Bridgett Gonzales PICKER OPERATOR Unavailable [phone] Encounter Details Date Type Department Care Team (Late st Contact Info) Description 12/03/2024 Orders Only External Location [address] [place] [address] Thomas Hood PA [address] [place] [address] Social History Tobacco Use Types [...] drink first t zeb in the morning (EYE-PIPING DRAFTER) to steady your nerves or to get [...] Description 01/24/2025 8:30 AM EDT Office Visit [facility] Multidisciplinary Oncology Clinic [address] [place] [address] Nito Balderas MD [address] [place] [address] documented as of this encounter Procedures Procedure [...] of this encounter Care Teams Director Of Programming Relationship Specialty Start Date End Date Raimundo Chirinos MD [address] [facility] [address] [place] [address] PCP - General 11/18/21 Moiz Mcnally MD [address] [facility] [address] [place] [address] Surgeon Neurosurgery 11/18/21 Bridgett Gonzales APRN [address] [place] [address] Nurse Practitioner Neurosurgery 01/07/22 documented as of this encounter
--- OUTSIDE RECORDS SUMMARY | 2025-01-16 15:07 | XMS_ITS | Encounter Summary ---
Author Organization [facility] Address [address] [place] [address] Care Team Providers Care Quick Print Operator Name Role Phone Raimundo Chirinos MD Primary Care Provider [phone] Moiz Mcnally MD Unavailable [phone] Bridgett Gonzales SUPERVISOR BODY ASSEMBLY Unavailable [phone] Encounter Details Date Type Department Care Team [...] any time in the past 12 m [facility], were you homeless or [...] drink first t zeb in the morning (EYE-MARINE DRAFTER) to steady your nerves or to get rid of a hangover? 0 12/05/2024 CAGE Questionnaire Score 0 025 Utilities Answer Date Recorded In the past 12 months has th e [employer], gas, oil, or water company threatened to [...] 8:30 AM EDT Office Visit [facility] Multidisciplinary Oncology Clinic [address] [place] [address] Nito Balderas MD [address] [place] [address] documented as of this encounter Visit Diagnoses Not on filedocumented in this encounter Additional Health Concerns Assessment Noted Time A fall risk assessment has been complete d for the patient 03/10/2022 9:47 AM EDT A Body Mass Index follow-up plan has been documented for the patient 12/07/2024 6:16 PM EDT documented as of this encounter Care Teams Quick Print Operator Relationship Specialty Start Date End Date Raimundo Chirinos MD [address] [facility] [address] [place] [address] PCP - General 11/18/21 Moiz Mcnally MD [address] [facility] [address] [place] [address] Surgeon Neurosurgery 11/18/21 Bridgett Gonzales APRN [address] [place] [address] Nurse Practitioner Neurosurgery 01/07/22 documented as of this encounter
--- OUTSIDE RECORDS SUMMARY | 2025-01-16 15:07 | XMS_ITS | Encounter Summary ---
Author Organization [facility] Address [address] [place] [address] Care Team Providers Care Communications Department Chair Name Role Phone Raimundo Chirinos MD Primary Care Provider [phone] Moiz Mcnally MD Unavailable [phone] Bridgett Gonzales SPECIAL EDUCATION SCIENCE TEACHER Unavailable [phone] Reason for Visit * Reason Onset Date Comments Scheduling 12/12/2024 Encounter Details Date Type Department Care Team (Late st Contact Info) Description 12/12/2024 Telephone [facility] [address] [place] [address] Airam Man Scheduling Social History Tobacco Use [...] drink first t zeb in the morning (EYE-CUTTER GRINDER) to steady your nerves or to get [...] Thursday, December 12, 2024 8:33 AM To: [email or web address] Subject: Secure Appointment Information Good morning, As [...] TIME THE AFTERNOON BEFORE YOUR PROCEDURE. Location: [place] [address].Parking Garage address is [address] [place] [address] Please remember: Don't eat anything after midnight [...] avoid delays or cancellation. Park in the [facility] garage on [address] [facility] [address] [facility] off [facility]. Proceed to Level A and take the free shuttle to the second stop, [facility]. Enter through the revolving door, and go to the Registration Desk. You will be directed to the Endo suite after registration. If you cannot make it to your appointment and need to cancel/reschedule please have the courtesy tocall our office as soon as possible at [phone] Airam Man Advance Endoscopy Procedure Shoe Lay Out Planner -Gastroenterology Main [facility] End[facility] scheduling # [phone] (office) [phone] (fax) [email or web address] documented in this encounter Plan of Treatment Upcoming Encounters Date Type Department Care Team (Late st Contact Info) Description 01/24/2025 8:30 AM EDT Office Visit [facility] [address] [place] [address] Nito Balderas MD [address] [place] [address] documented as of this encounter Visit Diagnoses Not on filedocumented in this encounter Additional Health Concerns Assessment Noted Time A fall risk assessment has been complete d for the patient 03/10/2022 9:47 AM EDT A Body Mass Index follow-up plan has been documented for the patient 12/07/2024 6:16 PM EDT documented as of this encounter Care Teams Communications Department Chair Relationship Specialty Start Date End Date Raimundo Chirinos MD [facility] [address] [place], [place] [address] PCP - General 11/18/21 Moiz Mcnally MD [address] [place] [address] Surgeon Neurosurgery 11/18/21 Bridgett Gonzales APRN [address] [place] [address] Nurse Practitioner Neurosurgery 01/07/22 documented as of this encounter
--- OUTSIDE RECORDS SUMMARY | 2025-01-16 15:07 | XMS_ITS | Encounter Summary ---
Author Organization Healthcare Address [address] [place] [address] Care Team Providers Care Detail Sergeant Name Role Phone Raimundo Chirinos MD Primary Care Provider Moiz Mcnally MD Unavailable [phone] Bridgett Gonzales PASSENGER SERVICE AGENT Unavailable [phone] Encounter Details Date Type Department Care Team (Late st Contact Info) Description 12/03/2024 Orders Only External Location [address] [place] [address] Thomas Hood PA [address] [place] [address] Social History Tobacco Use Types [...] any time in the past 12 m [facility], were you homeless or living in [...] first t zeb in the morning (EYE-SAMPLE EXAMINER) to steady your nerves or to get [...] Description 01/24/2025 8:30 AM EDT Office Visit [facility] Multidisciplinary Oncology Clinic [address] [place] [address] Nito Balderas MD [address] [place] [address] documented as of this encounter Procedures Procedure [...] documented as of this encounter Care Teams Detail Sergeant Relationship Specialty Start Date End Date Raimundo Chirinos MD [address] [facility] [address] [place] [address] PCP - General 11/18/21 Moiz Mcnally MD [address] [place] [address] Surgeon Neurosurgery 11/18/21 Bridgett Gonzales APRN [address] [place] [address] Nurse Practitioner Neurosurgery 01/07/22 documented as of this encounter
--- OUTSIDE RECORDS SUMMARY | 2025-01-16 15:07 | XMS_ITS | Encounter Summary ---
Author Organization [facility] Address [address] [place] [address] Care Team Providers Care Mat Tester Name Role Phone Raimundo Chirinos MD Primary Care Provider [phone] Moiz Mcnally MD Unavailable [phone] Bridgett Gonzales GRAB HOOKER Unavailable Encounter Details Date Type Department Care [...] [facility] Multidisciplinary Oncology Clinic [address] [place] [address] Nito Balderas MD [address] [place] [address] documented as of this encounter Visit Diagnoses Not on filedocumented in this encounter Additional Health Concerns Assessment Noted Time A fall risk assessment has been complete d for the patient 03/10/2022 9:47 AM EDT documented as of this encounter Care Teams Mat Tester Relationship Specialty Start Date End Date Raimundo Chirinos MD [address] [place] [address] [address] [place] [address] PCP - General 11/18/21 Moiz Mcnally MD [address] [place] [address] Surgeon Neurosurgery 11/18/21 Bridgett Gonzales APRN [address] [place] [address] Nurse Practitioner Neurosurgery 01/07/22 documented as of this encounter
--- OUTSIDE RECORDS SUMMARY | 2025-01-16 15:08 | XMS_ITS | Encounter Summary ---
Author Organization [facility] Address [address] [place] [address] Care Team Providers Care Blade Bender Furnace Tender Name Role Phone Raimundo Chirinos MD Primary Care Provider [phone] Moiz Mcnally MD Unavailable [phone] Bridgett Gonzales OUTDOOR ADVENTURE LEADER Unavailable [phone] Encounter Details Date Type Department Care Team [...] in a long-term (including now)? No 12/04/2024 CAGE ASSESSMENT Answer [...] drink first t zeb in the morning (EYE-AUTO SERVICE MECHANIC) to steady your nerves or to get rid of a hangover? 0 12/05/2024 CAGE Questionnaire Score 0 025 Utilities Answer Date Recorded In the past 12 months has th e [employer], gas, oil, or water company threatened to [...] Description 01/24/2025 8:30 AM EDT Office Visit [facility] Multidisciplinary Oncology Clinic [address] [place] [address] Nito Balderas MD [address] [place] [address] documented as of this encounter Visit Diagnoses Not on filedocumented in this encounter Additional Health Concerns Assessment Noted Time A fall risk assessment has been complete d for the patient 03/10/2022 9:47 AM EDT documented as of this encounter Care Teams Blade Bender Furnace Tender Relationship Specialty Start Date End Date Raimundo Chirinos MD [address] [place], [place] [address] [address] [place] [address] PCP - General 11/18/21 Moiz Mcnally MD [address] [place] [address] [address] Surgeon Neurosurgery 11/18/21 Bridgett Gonzales APRN [address] [place] [address] [address] Nurse Practitioner Neurosurgery 01/07/22 documented as of this encounter
--- OUTSIDE RECORDS SUMMARY | 2025-01-16 15:08 | XMS_ITS | Encounter Summary ---
Author Organization [facility] Address [address] [place] [address] Care Team Providers Care Personnel Associate Name Role Phone Raimundo Chirinos MD Primary Care Provider [phone] Moiz Mcnally MD Unavailable [phone] Bridgett Gonzales UNEMPLOYMENT BENEFITS CLAIMS TAKER Unavailable [phone] Encounter Details Date Type Department Care Team [...] drink first t zeb in the morning (EYE-GENERAL SALES MANAGER) to steady your nerves or to [...] Description 01/24/2025 8:30 AM EDT Office Visit [facility] Multidisciplinary Oncology Clinic [address] [place] [address] Nito Balderas MD [address] [place] [address] documented as of this encounter Visit Diagnoses Not on filedocumented in this encounter Additional Health Concerns Assessment Noted Time A fall risk assessment has been complete d for the patient 03/10/2022 9:47 AM EDT A Body Mass Index follow-up plan has been documented for the patient 12/07/2024 6:16 PM EDT documented as of this encounter Care Teams Personnel Associate Relationship Specialty Start Date End Date Raimundo Chirinos MD [address] [place] [address] [address] [place] [address] PCP - General 11/18/21 Moiz Mcnally MD [address] [place] [address] Surgeon Neurosurgery 11/18/21 Bridgett Gonzales APRN [address] [place] [address] Nurse Practitioner Neurosurgery 01/07/22 documented as of this encounter
--- OUTSIDE RECORDS SUMMARY | 2025-01-16 15:08 | XMS_ITS | Encounter Summary ---
Author Organization [facility] Address [address] [place] [address] Care Team Providers Care Fabrication And Assembly Supervisor Name Role Phone Raimundo Chirinos MD Primary Care Provider [phone] Moiz Mcnally MD Unavailable [phone] Bridgett Gonzales ARTIFICIAL FLOWER MAKER Unavailable [phone] Encounter Details Date Type Department Care Team [...] time in the past 12 m [facility], were you homeless or living in a snf (including now)? No 12/06/2024 CAGE ASSESSMENT Answer [...] drink first t zeb in the morning (EYE-CONFERENCE CENTER MANAGER) to steady your nerves or to get rid of a hangover? 0 12/05/2024 CAGE Questionnaire Score 0 025 Utilities Answer Date Recorded In the past 12 months has th e [employer], gas, oil, or water company threatened to [...] 8:30 AM EDT Office Visit [facility] Multidisciplinary Oncology Clinic [address] [place] [address] Nito Balderas MD [address] [place] [address] documented as of this encounter Visit Diagnoses Not on filedocumented in this encounter Additional Health Concerns Assessment Noted Time A fall risk assessment has been complete d for the patient 03/10/2022 9:47 AM EDT A Body Mass Index follow-up plan has been documented for the patient 12/07/2024 6:16 PM EDT documented as of this encounter Care Teams Fabrication And Assembly Supervisor Relationship Specialty Start Date End Date Raimundo Chirinos MD [address] [facility] [address] [place] [address] PCP - General 11/18/21 Moiz Mcnally MD [address] [place] [facility] [address] [place] [address] Surgeon Neurosurgery 11/18/21 Bridgett Gonzales APRN [address] [place] [address] Nurse Practitioner Neurosurgery 01/07/22 documented as of this encounter
--- NOTE | 2025-01-16 15:12 | ED_ITS ---
<Statement entered by Terrance Ardon MD - 01/17/25 07:12> I was consulted by the ANDREW, and we discussed the complexity of problems being addressed. I approved the treatment and management plan for this patient's care in the emergency department, thus performing a substantial portion of the medical decision making. I examined the patient and had a reassuring abdominal exam. Signed out to oncoming provider pending cross-sectional imaging of the abdomen. Terrance Ardon MD Discharge Plan Disposition Patient Disposition: Home, Self-Care Condition: Good Prescriptions Prescriptions: New magnesium citrate Solution 150 ml PO DAILY Qty: 296 0RF No Action furosemide [Lasix] 40 mg tablet 40 mg PO DAILY sennosides-docusate sodium [Senna Plus] 8.6-50 mg tablet 1 tab-cap PO BID metoprolol succinate 25 mg tablet extended release 24 hr 25 mg PO DAILY ondansetron 4 mg tablet,disintegrating 4 mg PO Q6H PRN oxycodone 5 mg tablet 5 mg PO Q6H potassium chloride [K-Tab] 20 mEq tablet extended release 20 meq PO DAILY lisinopril 2.5 mg tablet 2.5 mg PO DAILY Qty: 30 5RF gabapentin 300 mg capsule 300 mg PO QID Qty: 120 0RF Referrals Follow up/Referrals: Raimundo Chirinos MD [Primary Care Provider, Medical] - See instructions Activity Restrictions/Add. Instructions Additional Instructions/Restrictions: Follow-up with PCP Bowel prep as ordered If symptoms worsen or do not improve return Clinical Impressions Clinical Impression: Constipation Instructions Patient Instructions: DI for Acute Abdominal Pain, DI for Constipation Print Language Print Language: Georgian Discharge ED Provider: Danna Garces Adult HPI General Chief complaint: Abdominal Pain Stated complaint: Constipation-No BM in 3 [id number] by Taran Time Seen by Provider: 01/16/25 15:00 Mode of Arrival: Ambulatory Source of Information: Patient Description of Symptoms (Recalled from ER Triage Doc. by RN): Pt presents for evaluation of constipation x 3 days. Pt states he has not been passing gas. Pt states he was diagnosed with pancreatic cancer on December 20. Pt was advised by Dr. Chirinos to come in for evaluation History of Present Illness HPI narrative: 64-year-old male presents for constipation x 3 days. Patient states he has not passed any gas and his last BM was loose. Patient states he had a recent diagnosis of pancreatic cancer on December 03 and is seeing and was offered to have surgery but was told he is high risk so patient chose to wait while he thought about it. Patient states he goes back this week for more testing to see if the cancer has spread. Patient denies distention has tenderness in his suprapubic area Related Data Home Medications ?Medication ?Instructions ?Recorded ?Confirmed furosemide 40 mg tablet (Lasix) 40 mg PO DAILY 5 12/31/24 metoprolol succinate 25 mg 25 mg PO DAILY 12/31/2401/18 tablet,extended release 24 hr ondansetron 4 mg disintegrating 4 mg PO Q6H PRN 12/31/24 tablet oxycodone 5 mg tablet 5 mg PO Q6H 12/31/24 5 potassium chloride 20 mEq 20 meq PO DAILY 12/31/2401/18 tablet,extended release (K-Tab) sennosides 8.6 mg-docusate sodium 1 tab-cap PO BID 01/1812/31/24 50 mg tablet (Senna Plus) Previous Rx's ?Medication ?Instructions ?Recorded gabapentin 300 mg capsule 300 mg PO QID #120 caps 10/26 08/21 lisinopril 2.5 mg tablet 2.5 mg PO DAILY #30 tabs 01/18 magnesium citrate 150 ml PO DAILY #296 mL 12/26 09/18 Allergies Allergy/AdvReac Type Severity Reaction Status Date / Time No Known Drug Intolerances Allergy Unknown Unknown Verified 12/31/24 14:51 allergy reaction [facility] Disclaimer: The information contained in this section may have been updated after the patient was seen, as this information can be updated by other users. 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 Have you lived/traveled outside [place] in past 30 days?: No Contact w/someone who lives/traveled outside [place] past 30 days?: No Exposure to someone with infectious disease in past 14 days?: No Do you have a fever (greater than 100.4 F or 38 C)?: No Have you tested positive for COVID-19?: No Exposed to someone with COVID-19 in past 14 days?: No Do you have a sore throat?: No Do you have a cough?: No Do you have any weakness?: No Do you have any diarrhea?: No Are you experiencing any unusual bleeding?: No Do you have any muscle aches/pain?: No Do you have any abdominal pain?: No Are you experiencing loss of taste or smell?: No Other Medical History Have you received the Flu Vaccine for this season: No Have you received the Pneumonia Vaccine: No ROS Obtained: Yes All systems reviewed & no additional complaints except as documented Constitutional Constitutional: Reports system reviewed and no additional complaints, except as documented, Reports as per HPI, Denies anorexia, Denies fever(s) and Denies increased appetite ENT Ears, Nose, Mouth, and Throat: Reports system reviewed and no additional complaints, except as documented Cardiovascular Cardiovascular: Reports system reviewed and no additional complaints, except as documented Respiratory Respiratory: Reports system reviewed and no additional complaints, except as documented Gastrointestinal Gastrointestingal: Reports system reviewed and no additional complaints, except as documented, as per HPI, abdominal pain and constipation Physical Exam General General appearance: alert and in no apparent distress ENT ENT exam: Present normal exam Respiratory Respiratory exam: Present normal lung sounds bilaterally Cardiovascular Cardiovascular exam: Present irregular rhythm Abdominal Exam Abdominal exam: Present soft, tenderness and normal bowel sounds; Absent distention Abdominal tenderness: Present suprapubic Neurological Exam Neurological exam: Present alert and oriented X3 Skin Skin exam: Present warm and intact Medical Decision Making Medical Records Medical records reviewed: Yes I reviewed the patient's medical records. Screening: Per USPSTF and CDC recommendations, given the prevalence of disease in our region, it is our hospital?s policy to screen for HIV and viral Hepatitis for all patients aged 18 and over and those with ongoing risk factors. Jose Martin Inquiry Pt receiving controlled substance: No Vital Signs: 01/16/25 14:43 01/16/25 15:44 01/16/25 16:00 Temperature 97.5 F L Temperature Source Temporal Artery Scan Pulse Rate 100 H 94 H Pulse Rate [Right] 101 H Respiratory Rate 18 18 18 Blood Pressure 117/77 139/94 H Blood Pressure [Right Arm] 130/80 Blood Pressure Mean 92 108 Blood Pressure Mean [Right Arm] 96 Blood Pressure Source [Right Arm] Automatic Cuff Blood Pressure Position [Right Arm] Sitting 02 Sat by Pulse Oximetry 100 98 98 Oxygen Delivery Method Room Air 01/16/25 16:30 01/16/25 17:00 01/16/25 18:06 Temperature Temperature Source Pulse Rate 99 H 104 H 110 H Pulse Rate [Right] Respiratory Rate 12 15 11 L Blood Pressure 134/100 H 125/90 151/101 H Blood Pressure [Right Arm] Blood Pressure Mean 115 103 Blood Pressure Mean [Right Arm] Blood Pressure Source [Right Arm] Blood Pressure Position [Right Arm] 02 Sat by Pulse Oximetry 98 98 98 Oxygen Delivery Method Room Air 01/16/25 18:41 Temperature Temperature Source Pulse Rate 107 H Pulse Rate [Right] Respiratory Rate 25 H Blood Pressure 151/107 H Blood Pressure [Right Arm] Blood Pressure Mean Blood Pressure Mean [Right Arm] Blood Pressure Source [Right Arm] Blood Pressure Position [Right Arm] 02 Sat by Pulse Oximetry 97 Oxygen Delivery Method Room Air Lab Data Lab results reviewed: Yes I reviewed the patient's lab results. Lab Results 01/16/25 17:05: WBC 10.5, RBC 5.37, Hgb 16.4, Hct 48.0, MCV 89.4, MCH 30.5, MCHC 34.2, RDW 19.8 H, Plt Count 254, MPV 10.6 H, Neut % (Auto) 73.6, Lymph % (Auto) 17.0, Carson % (Auto) 6.5, Eos % (Auto) 2.0, Baso % (Auto) 0.6, Neut # (Auto) 7.7, Lymph # (Auto) 1.8, Carson # (Auto) 0.7, Eos # (Auto) 0.2, Baso # (Auto) 0.1, Sodium 136, Potassium 4.0, Chloride 108 H, Carbon Dioxide 22, Anion Gap 10.0, BUN 14, Creatinine 0.70, Estimated Creat Clear 69, Estimated GFR 114, Est GFR ( Amer) 137, Glucose 95, Calcium 9.1, Total Bilirubin 3.2 H, AST 57, ALT 36, Alkaline Phosphatase 67, Total Protein 6.6, Albumin 3.9, Globulin 2.7, Albumin/Globulin Ratio 1.4, Lipase 155 01/16/25 17:05 01/16/25 17:05 Orders (Tests/Meds): ED MEDICATIONS Discontinued Medications Generic Name Dose Route Start Last Admin Trade Name Freq PRN Reason Stop Dose Admin Iopamidol 75 ml 01/16/25 17:42 01/16/25 17:43 Iopamidol-370 (76%);100ml Bottle IV 01/16/25 17:43 75 ml ONCE ONE Administration Sodium Chloride 10 ml 01/16/25 17:42 01/16/25 17:42 Sodium Chloride 0.9% 10ml Syr (Rad Only) IV 01/16/25 17:43 10 ml ONCE ONE Administration ORDERS Category Date Time Status CT abdomen pelvis w con Stat Cat Scan 01/16/25 15:22 Completed CBC w/Auto Diff [Complete Blood Count Auto Diff] Stat Lab 01/16/25 17:05 Completed CMP [Comprehensive Metabolic Panel] Stat Lab 01/16/25 17:05 Completed Lipase Stat Lab 01/16/25 17:05 Completed Medical Decision Narrative: In summary patient is a 64-year-old male who presents to the emergency department for evaluation of constipation x 3 days. Patient is hemodynamically stable upon arrival, afebrile. Unremarkable physical exam. Differential diagnosis includes constipation, small bowel obstruction. Initial workup will be conducted with labs, CT abdomen pelvis. Initial inventions include Initial workup reviewed by me CT shows moderate amount of stool. Upon repeat evaluation patient resting comfortably in bed, offered enema while in ER for bowel cleanse once discharged patient wants to wait till he gets home to do a bowel prep. Given this patient appropriate for discharge will discharge home with bowel prep. Critical Care Critical Care Time Critical Care Time: No
--- NOTE | 2025-01-16 15:22 | CT_ITS ---
PROCEDURE INFORMATION: Exam: CT Abdomen And Pelvis With Contrast Exam date and time: 01/16/2025 5:43 PM Age: 64 years old Clinical indication: Constipation TECHNIQUE: Imaging protocol: Computed tomography of the abdomen and pelvis with contrast. Radiation optimization: All CT scans at this facility use at least one of these dose optimization techniques: automated exposure control; mA and/or kV adjustment per patient size (includes targeted exams where dose is matched to clinical indication); or iterative reconstruction. Contrast material: ISOVUE; Contrast volume: 75 ml; Contrast route: IV; COMPARISON: CT ABDOMEN PELVIS W CON 12/03/2024 6:40 PM FINDINGS: Tubes, catheters and devices: There is a CBD stent in place from the right hepatic lobe biliary system to the duodenum. Lungs: Dependent bilateral lung base opacities favor atelectasis. Diaphragm: A small sliding hiatal hernia is present. Liver: There is diffuse hypoattenuation of the liver compatible with mild hepatic steatosis. Gallbladder and biliary ducts: Normal. No calcified stones. No ductal dilation. Pancreas: Normal. No ductal dilation. Spleen: Multiple benign-appearing calcific densities of the spleen. Adrenal glands: Hypoattenuating right adrenal nodule with internal density of <10 HU compatible with lipid rich adrenal adenoma measuring twenty-six mm in diameter. Hypoattenuating left adrenal nodule with internal density of <10 HU compatible with lipid rich adrenal adenoma measuring 22 mm in diameter. Kidneys and ureters: Normal. No hydronephrosis. Stomach and bowel: Moderate stool burden of the rectum. Appendix: No evidence of appendicitis. Intraperitoneal space: Unremarkable. No free air. No significant fluid collection. Vasculature: Moderate calcific atherosclerotic disease of the abdominal aorta without aneurysmal dilatation is present. Lymph nodes: Left upper quadrant small bowel thickening with multiple prominent mesenteric nodes measuring greater than 5 mm in short axis can be seen with mild infectious or inflammatory enteritis. Urinary bladder: Unremarkable as visualized. Reproductive: Unremarkable as visualized. Bones/joints: Postsurgical changes compatible with posterior fusion with transpedicular screws, and vertical stabilizing bars between levels L3 through S1. Soft tissues: Normal. IMPRESSION: 1. Left upper quadrant small bowel thickening with multiple prominent mesenteric nodes measuring greater than 5 mm in short axis can be seen with mild infectious or inflammatory enteritis. 2. Moderate stool burden of the rectum.
[2025-01-16 17:16] LABS: Hematocrit 48.0 % (42.0-52.0); Hemoglobin 16.4 g/dL (14.1-18.0); Immature Granulocytes % 0.3 %; Mean Corpuscular HGB Conc 34.2 g/dL (31.8-35.4); Mean Corpuscular Hemoglobin 30.5 pg (27.0-31.2); Mean Corpuscular Volume 89.4 fl (80-94); Nucleated Red Blood Cells % 0 %; Platelet Count 254 K/mm3 (142-424); Red Blood Count 5.37 M/mm3 (4.60-6.20); Red Cell Distribution Width-SD 62.5 fL; White Blood Count 10.5 K/mm3 (4.8-10.8)
--- NOTE | 2025-01-16 17:16 | PC.NURSE ---
Called lab to check on status of blood results are it still shows ordered . Lab checked and can not find labs specimens. Thus, I collected another set of lab and sent.
[2025-01-16 17:28] LABS: Alanine Aminotransferase 36 U/L (12-78); Albumin Level 3.9 g/dl (3.5-5.0); Albumin/Globulin Ratio 1.4 (1.1-1.8); Alkaline Phosphatase 67 U/L (38-126); Anion Gap 10.0 mEq/L (5-15); Aspartate Amino Transferase 57 U/L (17-59); Bilirubin,Total 3.2 mg/dl (0.2-1.3); Blood Urea Nitrogen 14 mg/dl (9-20); Calcium 9.1 mg/dl (8.4-10.2); Carbon Dioxide 22 mmol/L (22.0-30.0); Chloride 108 mmol/L (98-107); Creatinine Clearance Estimated 69 mL/min (50-200); Creatinine,Serum 0.70 mg/dl (0.66-1.25); Estimated Glomerular Filt Rate 114 ml/min (>60); GFR (African American) 137 ML/MIN (>60); Globulin 2.7 g/dL (1.3-3.2); Glucose 95 mg/dl (74-100); Lipase 155 U/L (23-300); Potassium 4.0 mmoL/L (3.5-5.1); Sodium 136 mmol/L (136-145); Total Protein,Serum 6.6 g/dl (6.3-8.2)
[2025-01-16] MEDS: SODIUM CHLORIDE 0.9% 10ML SYR (RAD ONLY) 10 ML IV (17:42)
[2025-01-16] MEDS: IOPAMIDOL-370 (76%);100ML BOTTLE 75 ML IV (17:43)
--- NOTE | 2025-01-16 18:11 | PC.NURSE ---
I called radiology, they are going to reach out to inquire about the results of the CT
--- NOTE | 2025-01-16 18:41 | ECG_ITS ---
APPROVED REPORT Exam: Resting ECG HR:112 bpm ECG Measurements Heart Rate 112 AXES QRSd 104 QRS 53 QT 341 T 44 QTc 407 Conclusion Atrial fibrillation rate of 112 bpm with occasional PVC no other acute ST or T wave changes concerning for ischemia Electronically signed by : Danna Garces, 01/17/2025 00:49:13
[2025-01-16] MEDS: MAGNESIUM CITRATE 296ML BOTTLE 296 ML PO (19:12)
== END 2025-01-16 19:16 | disposition home or self-care (01) ==
PROVIDERS: Nurse Practitioner Family; Emergency Provider Student in an Organized Health Care Education/Training Program; PCP Internal Medicine
DX: R10.30 Lower abdominal pain, unspecified (principal); K59.00 Constipation, unspecified; C25.9 Malignant neoplasm of pancreas, unspecified; I10 Essential (primary) hypertension; E78.5 Hyperlipidemia, unspecified; F17.210 Nicotine dependence, cigarettes, uncomplicated
CPT/HCPCS: 74177; 80053; 83690; 85025; 93005; 99285; Q9967

== ENCOUNTER 2025-02-20 07:27 | Outpatient (CLI) | payer MEDICARE, SELFPAY ==
--- OUTSIDE RECORDS SUMMARY | 2024-12-25 07:53 | XMS_ITS | Encounter Summary ---
Author Organization [facility] Address [address] [id number] Care Team Providers Care [employer] Name Role Phone Raimundo Chirinos MD Primary Care Provider [phone] Moiz Mcnally MD Unavailable [phone] Bridgett Gonzales TRAM OPERATOR Unavailable [phone] Purvi Foy RN Unavailable Unavailab le Reason for Referral * Consultation (Routine) - Authorized Specialty Diagnoses / Procedures Referred By Contac t Referred To Contact Family Medicine Diagnoses Malignant neoplasm of body of pancreas (CMS/HCC) Iesha Pride MD [address] [place] [address] Phone: tel: fax: Referral ID Status Reason Start Date Expiration Date V isits Requested Visits Authorized [id number] Authorized 12/26/2024 06/27/2026 1 1 * Consultation (Routine) - Closed Specialty Diagnoses / Procedures Referred By Contact Referred To Contact Medical Oncology / Hematology and Oncology Diagnoses Malignant neoplasm of pancreas, unspecified location of malignancy (CMS/HCC) Jason Albarran MD [address] [facility] [address] [place] [address] Phone: tel: fax: [facility] Multidisciplinary Oncology Clinic [address] [place] [address] Phone: tel: fax: Referral ID Status Reason Start Date Expiration Date V isits Requested Visits Authorized [id number] Closed Specialty Services Required 12/26/2024 06/27/2026 1 1 * Consultation (Routine) - Authorized Specialty Diagnoses / Procedures Referred By Contac t Referred To Contact Surgical Oncology / Hematology and Oncology Diagnoses Acute pancreatitis, unspecified complication status, unspecified pancreatitis type Pancreatic mass Omar Barnhart MD [address] Phone: tel: fax: Referral ID Status Reason Start Date Expiration Date Visits Requested Visits Authorized [id number] Authorized Specialty Services Required 12/25/2024 06/26/2026 1 1 * Consultation (Routine) - Authorized Specialty Diagnoses / Procedures Referred By Contact Referred To Contact Medical Oncology / Hematology and Oncology Diagnoses Acute pancreatitis, unspecified complication status, unspecified pancreatitis type Pancreatic mass Omar Barnhart MD [address] [place] [address] Phone: tel:[phone] fax:[phone] [facility] [address] [place] [address] Phone: tel: fax: Referral ID Status Reason Start Date Expiration Date Visits Requested Visits Authorized [id number] Authorized Specialty Services Required 12/25/2024 06/26/2026 1 1 Scheduling Instructions New Pancreatic Mass Reason for Visit * Reason Comments Pain * Auth/Cert (Routine) Specialty Diagnoses / Procedures Referred By Contac t Referred To Contact Diagnoses Malignant neoplasm of pancreas, unspecified location of malignancy (CMS/HCC) Bulmaro Fong MD [address] [id number] Phone: tel: fax: [facility] [address] [place] [address] Phone: tel: Referral ID Status Reason Start Date Expiration Date Visits Re quested Visits Authorized [id number] 1 1 Encounter Details Date Type Department Care Team (Latest Contact Info) Description 12/25/2024 7:53 AM EDT - 12/26/2024 5:05 PM EDT Hospital Encounter [facility] [address] [place] [id number] Danny Lucio MD [address] [place] [address] Bulmaro Fong MD [address] [place] [address] Iesha Pride MD [address] [place] [address] Malignant neoplasm of pancreas, unspecified location of malignancy (CMS/HCC) (Primary Dx); Acute pancreatitis, unspecified complication status, unspecified pancreatitis type; Pancreatic mass; Epigastric pain; Nausea and vomiting, unspecified vomiting type; Malignant neoplasm of body of pancreas (CMS/HCC); Elevated lipase Discharge Disposition: Left Against Medical Advice Social History Tobacco Use Types Packs/Day Years [...] any time in the past 12 [facility], were you homeless or living in a senior care (including now)? No 12/27/2024 CAGE ASSESSMENT Answer [...] drink first t zeb in the morning (EYE-HEEL REDUCER) to steady your nerves or to get rid of a hangover? 0 12/05/2024 CAGE Questionnaire Score 0 025 Utilities Answer Date Recorded In the past 12 months has th e electric, gas, oil, or water company threatened to shut off services in your home? No 12/27/2024 Sex and Gender Information Value Date Recorded Sex Assigned at Male 01/29/2025 3:48 PM EDT Legal Sex Male 6:38 PM EDT Gender Identity Not on file Sexual Orientation Not on file documented as of this encounter Last Filed Vital Signs Vital Sign Reading Time Taken Comments Blood Pressure 122/80 12/26/2024 4:39 PM EDT Pulse 94 12/26/2024 4:39 PM EDT Temperature 36.3 C (97.4 F) 12/26/2024 4:39 PM EDT Respiratory Rate 14 12/26/2024 4:39 PM EDT Oxygen Saturation 94% 12/26/2024 4:39 PM EDT Inhaled Oxygen Concentration - - Weight 70.3 kg (155 lb) 12/25/2024 7:52 AM EDT Height 170.2 cm (5' 7 ) 12/25/2024 7:52 AM EDT Body Mass Index 24.28 12/25/2024 7:52 AM EDT documented in this encounter Functional [...] Fernandez RN 6. Suicidal Behavior (Lifetime) No 4:00 PM EDT Edmar Fernandez RN documented as of this encounter Discharge Instructions * Discharge Instructions* Izabela Potts MD - 12/25/2024 11:50 AM EDT You were seen and evaluated in the Emergency Department. Please return to ED if your symptoms worsen, change in location, change in severity, new symptoms develop or if you become concerned for your health. Please follow-up with oncology for symptoms. Return to the ED after being is not controlled oxycodone. Take oxycodone as needed for pain not relieved with Tylenol and. documented in this encounter Medications at Time of Discharge furosemide (Lasix) 40 MG tablet Take 1 tablet by mouth daily as needed. gabapentin (Neurontin) 300 MG capsule Take 1 capsule by mouth 4 times a day. metoprolol succinate XL (Toprol-XL) 25 MG 24 hr tablet Take 1 tablet by mouth daily. Do not crush or chew. 30 tablet 12/26/2024 naloxone (Narcan) 4 mg/0.1 mL nasal spray 1. Give 1 spray in nostril for no/slow breathing or cannot wake after opioid use 2. Call 911 3. Repeat in other nostril if symptoms continue 1 each 12/26/2024 ondansetron ODT (Zofran-ODT) 4 MG disintegrating tablet Dissolve 1 tablet on the tongue every 6 hours as needed for nausea or vomiting. 90 tablet 12/25/2024 senna-docusate sodium (Senokot-S) 8.6-50 MG tablet Take 1 tablet by mouth 2 times a day as needed for constipation. 60 tablet 2 12/07/2024 aspirin 81 MG EC tablet Take 1 tablet by mouth daily. 30 tablet 12/26/2024 5 oxyCODONE (Roxicodone) 5 MG immediate release tablet Take 1 tablet by mouth every 6 hours as needed for severe pain (Breakthrough pain) for up to 7 days. 28 tablet 12/26/2024 5 potassium chloride CR (Klor-Con M20) 20 MEQ ER tablet Take 1 tablet by mouth daily. Do not crush or chew. 5 documented as of this encounter Miscellaneous Notes * Discharge Summary - Iesha Pride MD - 12/26/2024 5:05 PM EDT Hospitalization Admit Date/Time: 12/25/2024 7:53 AM Admitting Attending: Bulmaro Fong Discharge Date: 12/26/2024 Discharge Attending Physician: Iesha Pirde MD PCP name and Address: Raimundo Chirinos MD [address] [place] [address] [address] / [address] [id number] Referring provider name and address: No referring provider defined for this encounter. Chief Concern, Brief History of Present Illness, and Hospital Course Mr. Brock is a 64 yo M with severe CAD, permanent atrial fibrillation not on anti-coagulation, andnewly diagnosed pancreatic adenocarcinoma who was initially admitted due to uncontrolled pain and nausea related to malignancy. Newly diagnosed pancreatic adenocarcinoma, causing abdominal pain, nausea (some degree of pancreatitis)-- also at risk of obstructive jaundice - S/p EUS 12/20-- showed gastritis, CBD narrowing, and a mass-like area in the pancreas. Biopsy (FNA) obtained. ERCP was attempted however due to small bowel motility unable to visualize the ampulla. Pathology from EUS eventually revealed adenocarcinoma - Admitted due to uncontrolled pain and nausea - CT abdomen/pelvis 12/25 showed a 4.5 cm HoP mass with pancreatic duct obstruction, 90 degree abutment of SMA, no other local vascular invasion - CT chest for metastatic work-up showed no evidence of metastatic disease - Medical Oncology and Surgical Oncology consulted inpatient - Surgical Oncology evaluated the patient for a Whipple procedure, with found need for cardiac and nutrition optimization. We would have preferred for the patient to stay 1-2 more days (ie, DHT insertion, tube feed supplementation, cardiology evaluation, GI evaluation), but the patient was overwhelmed and wanted to go home. He was not ready to make decisions regarding his care. I was very clear to him that this is a time-sensitive disease, and that in one week or one month, things may change. He is aware of the risks. PLAN - I have given him a week's supply of anti-emetics and pain medication. He would like to follow up with his PCP to see if he needs refills. His CMP also needs to be rechecked-- Tbili increasing some which could indicate biliary obstruction from the mass - We will have our [facility] nurse navigators work with him to have an appointment, ideally with Med Onc and Surg Onc (Dr. Navarro) in two weeks - Low fat diet, counseled on smoking HFrEF, severe CAD, permanent atrial fibrillation, not medically optimized - On admission, patient was only on a PRN loop diuretic - Does endorse symptoms of exertional dyspnea - Unfortunately, TTE showed an EF of 15-30%, moderate to severe MR, RVSP mildly elevated - When asked why he is not on a blood thinner, he notes that he does not need it. His [id number] is at least 2 PLAN - I have managed to convince him to at least take ASA 81 + metoprolol succinate (prescribed a 30-day supply) - He will benefit from further GDMT titration (SGLT-2, MRA, ARNI/ACEI/ARB). Close outpatient follow-up with PCP - As mentioned above, he is overwhelmed with his current condition. Ideally would need a Cardiologyreferral but would defer this to his PCP so as not to overwhelm Mr. Brock further Surgeries and Procedures Medication List .. aspirin 81 MG EC tablet Take 1 tablet by mouth daily. furosemide 40 MG tablet Commonly known as: Lasix Take 1 tablet by mouth daily as needed. gabapentin 300 MG capsule Commonly known as: Neurontin Take 1 capsule by mouth 4 times a day. metoprolol succinate XL 25 MG 24 hr tablet Commonly known as: Toprol-XL Take 1 tablet by mouth daily. Do not crush or chew. naloxone 4 mg/0.1 mL nasal spray Commonly known as: Narcan 1. Give 1 spray in nostril for no/slow breathing or cannot wake after opioid use 2. Call 911 3. Repeat in other nostril if symptoms continue ondansetron ODT 4 MG disintegrating tablet Commonly known as: Zofran-ODT Dissolve 1 tablet on the tongue every 6 hours as needed for nausea or vomiting. oxyCODONE 5 MG immediate release tablet Commonly known as: Roxicodone Take 1 tablet by mouth every 6 hours as needed for severe pain (Breakthrough pain) for up to 7 days. potassium chloride CR 20 MEQ ER tablet Commonly known as: Klor-Con M20 Take 1 tablet by mouth daily. Do not crush or chew. senna-docusate sodium 8.6-50 MG tablet Commonly known as: Senokot-S Take 1 tablet by mouth 2 times a day as needed for constipation. Where to Get Your Medications These medications were sent to [facility] [address] [place], [place] [address] [address] [address] aspirin 81 MG EC tablet metoprolol succinate XL 25 MG 24 hr tablet naloxone 4 mg/0.1 mL nasal spray ondansetron ODT 4 MG disintegrating tablet oxyCODONE 5 MG immediate release tablet Discharge Diagnosis Medical Problems Active and Resolved Hospital Problems Hospital Acute pancreatitis * (Principal) Malignant neoplasm of pancreas, unspecified location of malignancy (CMS/HCC) Post Discharge Instructions Watch out for recurrence of symptoms Outpatient Follow-Up Future Appointments Date Time Provider Department Center 01/24/2025 8:30 AM AlNito lowry MD [facility] Test Results Pending At Discharge Pertinent Physical Exam At Time of Discharge Physical Exam Constitutional: General: He is not in acute distress. Cardiovascular: Rate and Rhythm: Normal rate. Rhythm irregular. Pulmonary: Breath sounds: Normal breath sounds. No wheezing or rales. Abdominal: Palpations: Abdomen is soft. Tenderness: There is no abdominal tenderness. Musculoskeletal: Right lower leg: No edema. Left lower leg: No edema. Neurological: Mental Status: He is alert and oriented to person, place, and time. Motor: No weakness. Discharge Disposition/Condition Disposition: Home Condition: Stable (s/sx potential problems absent or manageable) I spent >30 minutes of patient care and instruction time in preparation for this discharge. * Assessment & Plan Note - Jordin Lilly MD - 12/26/2024 12:29 PM EDTAssociated Problem(s): Acute pancreatitis Consider low fat diet Multimodal pain and nausea management Orders from past 72 hours: Discharge Ambulatory referral to [facility]/Medical On[facility]; Future Ambulatory referral to Surgical Oncology; Future * Assessment & Plan Note - Jordin Lilly MD - 12/26/2024 12:10 PM EDTAssociated Problem(s): Malignant neoplasm of pancreas, unspecified location of malignancy (CMS/HCC) - Timing of Whipple TBD - Nutritional optimization - Preoperative cardiac risk stratification No associated orders from this encounter found during lookback period of 72 hours. * Progress Notes - Jordin Lilly MD - 12/26/2024 7:21 AM EDT Images from the original note were not included. Department of Surgery Division of Surgical Oncology Surgery Progress Note 12/26/24 Guanako Brock Subjective Subjective: HPI 64M PMH HFpEF (last EF 45-60%), pAfib (not on AC), CAD s/p stents x8, HTN, smoker who presents for newly identified pancreatic mass. Interval: - Patient examined at the bedside - Still with significant diffuse abdominal pain irradiating to the back. - On regular diet without nausea or emesis. Ate a hamburger with fries yesterday night. - Passing gas, having BM; last BM this AM - Prealbumin: 10. Edited by: Jordin Lilly MD at 12/26/2024 1206 Objective Objective: Vital signs: Vitals: 12/26/24 0953 BP: Pulse: 86 Resp: Temp: SpO2: Physical Exam: GENERAL: NAD, resting comfortably in bed, mildly icteric HEENT: Atraumatic, normocephalic. Extraocular movements intact. NECK: Supple. Trachea midline. CV: Regular rate and rhythm. RESP: Non-labored respirations on RA, symmetric chest rise ABDOMEN: Soft, mildly tender, non-distended, no signs of peritonitis/guarding. EXTREMITIES: Moves all extremities. No edema noted. NEURO: Alert and oriented to person, place, time. Normal affect. PSYCH: Appropriate mood and affect. No intake or output data in the 24 hours ending 12/26/24 1206 Lines/Drains/Tubes: Patient Lines/Drains/Airways Status Active Airway None Output by Drain (mL) 12/24/24 07 - 12/24/24 1859 12/24/24 190 - 12/25/24 0659 12/25/24 07 - 12/25/24 1859 12/25/24 190 - 12/26/24 0659 12/26/24 07 - 12/26/24 1206 Patient has no LDAs of requested type attached. Labs in last 18 hours: CBC WBC 9.17 Hb 15.5 Plt 236 Hct 47.2 ANC 6.20 (H) INR 1.4 (H), PTT 36 (H), Anti-Xa ?? MCV 88 BMP Na 139 Cl 105 BUN 18 Glu 128 (H) K 4.7 Co2 23 Cr 1.10 Ca 8.9 iCa ?? Mg 2.1, Phos 3.5 Lactate ?? LFT AST 32 AlkPhos 160 (H) T Prot 6.0 (L) ALK 102 (H) Bili 1.8 (H) Alb ?? D.Bili ?? Lab Trends: H/H Results from last 7 days Lab Units 12/26/24 0250 12/25/24 0908 HEMOGLOBIN g/dL 15.5 17.3 HEMATOCRIT % 47.2 50.3 INR Results from last 7 days Lab Units 12/26/24 0250 12/25/24 0908 INR 1.4* 1.3* Cr Results from last 7 days Lab Units 12/26/24 0250 12/25/24 0908 CREATININE mg/dL 1.10 0.95 Lactate No lab exists for component: LACTTEVEN Radiographic Interpretation: I have reviewed the imaging above and agree with the radiologist interpretation. CT Abdomen Pelvis w IV Contrast Result Date: 12/25/2024 4.5 cm mass in the head of the pancreas resulting in pancreatic duct obstruction. There is 90 degrees abutment of the superior mesenteric artery. Otherwise no evidence of local vascular invasion. This likely represents pancreatic ductal adenocarcinoma. The subcentimeter nodules seen on prior MRI are not evident on CT. CRITICAL RESULT: No. COMMUNICATION: Per this written report. Drafted by Romaine Raya MD on 12/25/2024 2:58 PM Final report signed by Romaine Raya MD on 12/25/2024 3:[address] Head wo IV Contrast Result Date: 12/25/2024 No visible acute intracranial abnormality. CRITICAL RESULT: No. COMMUNICATION: Per this written report. Drafted by Madeline Gallardo on 12/25/2024 2:31 PM Final report signed by Madeline Gallardo on 12/25/2024 2:50 PM Medications reviewed. Vital signs reviewed. Labs reviewed. Assessment/Plan Assessment and Plan: 64M PMH HFpEF (last EF 45-60%), pAfib (not on AC), CAD s/p stents x8, HTN, smoker who presents for newly identified pancreatic mass. Pathology consistent with pancreatic adenocarcinoma. Currently with acute pancreatitis and cholestasis (s/p failed ERCP attempt) Assessment & Plan Malignant neoplasm of pancreas, unspecified location of malignancy (CMS/HCC) - Timing of Whipple TBD - Nutritional optimization - Preoperative cardiac risk stratification No associated orders from this encounter found during lookback period of 72 hours. Acute pancreatitis Consider low fat diet Multimodal pain and nausea management Orders from past 72 hours: Discharge Ambulatory referral to [facility]; Future Ambulatory referral to Surgical Oncology; Future Present on Admission: Malignant neoplasm of pancreas, unspecified location of malignancy (CMS/HCC) Plan: - Mr Brock will require a Whipple procedure. Given current pancreatitis and cholestasis (s/p failed ERCP attempt) timing for surgery still to be determined. - Will require preoperative nutritional optimization and cardiac risk stratification - Multimodal pain and nausea management - Serial abdominal exams - Monitor VS - Electrolytes repletion prn. Edited by: Jordin Lilly MD at 12/26/2024 1203 Dispo: Continue Current Level of Care Jordin Ramirez MD Cosigned by Ronda Bedoya MD at 12/27/2024 2:13 PM EDT Associated attestation - Ronda Bedoya MD - 12/27/2024 2:13 PM EDT I saw and evaluated the patient with the resident/fellow. I discussed the case with the resident/fellow and agree with the findings and plan as documented. * Hospital Course - Iesha Pride MD - 12/25/2024 6:21 PM EDT Mr. Brock is a 64 yo M with severe CAD, permanent atrial fibrillation not on anti-coagulation, andnewly diagnosed pancreatic adenocarcinoma who was initially admitted due to uncontrolled pain and nausea related to malignancy. Newly diagnosed pancreatic adenocarcinoma, causing abdominal pain, nausea (some degree of pancreatitis)-- also at risk of obstructive jaundice - S/p EUS 12/20-- showed gastritis, CBD narrowing, and a mass-like area in the pancreas. Biopsy (FNA) obtained. ERCP was attempted however due to small bowel motility unable to visualize the ampulla. Pathology from EUS eventually revealed adenocarcinoma - Admitted due to uncontrolled pain and nausea - CT abdomen/pelvis 12/25 showed a 4.5 cm HoP mass with pancreatic duct obstruction, 90 degree abutment of SMA, no other local vascular invasion - CT chest for metastatic work-up showed no evidence of metastatic disease - Medical Oncology and Surgical Oncology consulted inpatient - Surgical Oncology evaluated the patient for a Whipple procedure, with found need for cardiac and nutrition optimization. We would have preferred for the patient to stay 1-2 more days (ie, DHT insertion, tube feed supplementation, cardiology evaluation, GI evaluation), but the patient was overwhelmed and wanted to go home. He was not ready to make decisions regarding his care. I was very clear to him that this is a time-sensitive disease, and that in one week or one month, things may change. He is aware of the risks. PLAN - I have given him a week's supply of anti-emetics and pain medication. He would like to follow up with his PCP to see if he needs refills. His CMP also needs to be rechecked-- Tbili increasing some which could indicate biliary obstruction from the mass - We will have our [facility] nurse navigators work with him to have an appointment, ideally with Med Onc and Surg Onc (Dr. Navarro) in two weeks - Low fat diet, counseled on smoking HFrEF, severe CAD, permanent atrial fibrillation, not medically optimized - On admission, patient was only on a PRN loop diuretic - Does endorse symptoms of exertional dyspnea - Unfortunately, TTE showed an EF of 15-30%, moderate to severe MR, RVSP mildly elevated - When asked why he is not on a blood thinner, he notes that he does not need it. His [id number] is at least 2 PLAN - I have managed to convince him to at least take ASA 81 + metoprolol succinate (prescribed a 30-day supply) - He will benefit from further GDMT titration (SGLT-2, MRA, ARNI/ACEI/ARB). Close outpatient follow-up with PCP - As mentioned above, he is overwhelmed with his current condition. Ideally would need a Cardiologyreferral but would defer this to his PCP so as not to overwhelm Mr. Brock further * Care Plan - Edmar Fernandez RN - 12/25/2024 4:00 PM EDT Problem: Adult Inpatient Plan of Care Goal: Patient-Specific Goal (Individualized) 12/25/20241910 by Edmar Fernandez RN Outcome: Ongoing, Progressing 12/25/20241909 by Edmar Fernandez RN Outcome: Ongoing, Progressing Goal: Absence of Hospital-Acquired Illness or Injury Outcome: Ongoing, Progressing Intervention: Identify and Manage Fall Risk Flowsheets (Taken 12/25/20241910) Safety Promotion/Fall Prevention: activity supervised assistive device/personal items within reach clutter-free environment maintained fall prevention program maintained lighting adjusted toileting scheduled safety round/check completed room organization consistent nonskid shoes/slippers when out of bed mobility aid in reach Intervention: Prevent Skin Injury Flowsheets (Taken 12/25/20241910) Body Position: education provided Goal: Optimal Comfort and Wellbeing Outcome: Ongoing, Progressing Intervention: Monitor Pain and Promote Comfort Flowsheets (Taken 12/25/20241910) Pain Management Interventions: pillow support provided position adjusted emotional support Problem: Pain Acute Goal: Optimal Pain Control and Function Outcome: Ongoing, Progressing Intervention: Prevent or Manage Pain Note: Patient will report tolerable amount of pain after the interventions Problem: Pancreatitis Goal: Fluid and Electrolyte Balance Outcome: Ongoing, Progressing Intervention: Monitor and Manage Fluid and Electrolyte Balance Flowsheets (Taken 12/25/20241910) Fluid/Electrolyte Management: fluids adjusted fluids provided Note: Patient will be started on IV fluids therapy after talking to provider Goal: Absence of Infection Signs and Symptoms Outcome: Ongoing, Progressing * H&P - Shoaib Ramachandran MD - 12/25/2024 3:39 PM EDT Images from the original note were not included. [facility] Department of Surgery Division of Surgical Oncology History & Physical Note Reason for Consult: Acute pancreatic mass concern for adenocarcinoma Requesting Service: Hospital Medicine Consult Date and Time: 12/25/2024 1330 Inpatient consult to Surgical Oncology Consult performed by: Shoaib Ramachandran MD Consult ordered by: Omar Barnhart MD Subjective History of Present Illness: Chief Complaint: Abdominal pain, nausea, vomiting, concern for newly identified pancreatic mass Guanako Brock is a 64 y.o. male with PMHx significant for HFPEF (EF 45-60%), pAFib (not on anticoagulation), CAD s/p stents x8, and hypertension who presented to the [facility] on 12/25/2024 withconcerns for intractable nausea, vomiting, and abdominal pain in the context of a newly identified pancreatic mass. Patient reports ongoing uncontrolled nausea and vomiting starting in approximately mid-October (past 1.5 months). These symptoms led him to get a CT scan on 12/03 that was notable for signsof acute pancreatitis, pancreatic head mass, dilated biliary tree with double duct sign concerning for malignancy . He then underwent MRCP on 12/06 with concern for a 3 mm cystic lesion of the uncinate process of the pancreas. On 12/20, he had endoscopic ultrasound and biopsy of the lesion with pathology that identified atypical cells that are consistent with adenocarcinoma of the pancreas. In the ED today, the patient continued to complain of nausea, vomiting, and abdominal pain. He estimates that he has lost approximately 50 pounds in the last 6 weeks. He endorses swanson stools, dark urine, and pain in the upper abdomen that radiates to the back. He denies any episodes of fever or other symptoms of cholecystitis. He endorses some intermittent episodes of constipation over the past few weeks, but not currently. Review of Systems: Relevant review of systems was obtained as able and is negative unless stated above in HPI. History Obtained From: Patient/Family Past Medical History: Past Medical History[1] Allergies And Reactions: Allergies[2] Past Surgical History: Surgical History[3] Family Medical History: Family History[4] Pertinent For: Colon cancer in sister, diagnosed at 45 y/o. Pancreatic cancer in paternal grandfather. Social History: Social History Socioeconomic History Marital status: Spouse name: Not on file Number of children: Not on file Years of education: Not on file Highest education level: Not on file Occupational History Not on file Tobacco Use Smoking status: Every Day Current packs/day: 0.50 Average packs/day: 0.5 packs/day for 48.0 years (24.0 ttl pk-yrs) Types: Cigarettes Smokeless tobacco: Never Vaping Use Vaping status: Never Used Substance and Sexual Activity Alcohol use: Never Drug use: Yes Frequency: 3.0 times per week Types: Marijuana Comment: every two or three days Sexual activity: Defer Other Topics Concern Occupational Exposure No Social History Narrative Not on file Social Drivers of Health Financial Resource Strain: Not on file Food Insecurity: No Food Insecurity (12/06/2024) Hunger [...] (Medical): No Lack of Transportation (Non-Medical): No Physical Activity: Not on file Stress: Not on file Social Connections: Not on file Intimate Partner Violence: Not At Risk (12/06/2024) Humiliation, Afraid, Rape, and Kick questionnaire Fear of Current or Ex-Partner: No Emotionally Abused: No Physically Abused: No Sexually Abused: No Housing Stability: Unknown (12/06/2024) Housing Stability Vital Sign Unable to Pay for Housing in the Last Year: No Number of Times Moved in the Last Year: Not on file Homeless in the Last Year: No Immunizations: There is no immunization history on file for this patient. I have updated and confirmed the past medical, surgical, family and social history. Home Medications: Prior to Admission medications Medication Sig Start Date End Date Taking? Authorizing Provider furosemide (Lasix) 40 MG tablet Take 2 tablets by mouth every other day. 12/07/24 Yes Saul Del Real MD ondansetron ODT (Zofran-ODT) 4 MG disintegrating tablet Dissolve 1 tablet on the tongue every 6 hours as needed for nausea or vomiting. 12/25/24 Yes Omar Barnhart MD gabapentin (Neurontin) 300 MG capsule Take 1 capsule by mouth 4 times a day. Patient taking differently: Take 4 capsules by mouth daily. Patient takes 4 capsules at once every day. Provider, MD Robert levoFLOXacin (Levaquin) 500 MG tablet Take 1 tablet by mouth daily for 5 days. 12/21/24 12/26/24 Darian Jaramillo MD ondansetron ODT (Zofran-ODT) 4 MG disintegrating tablet Dissolve 1 tablet on the tongue every 6 hours as needed for nausea. 12/25/24 01/24/25 Izabela Potts MD oxyCODONE (Roxicodone) 5 MG immediate release tablet Take 1 tablet by mouth every 4 hours as neededfor severe pain. 12/07/24 Terrance Del Real MD potassium chloride CR (Klor-Con M20) 20 MEQ ER tablet Take 2 tablets by mouth every other day. Withfurosemide Patient not taking: Reported on 12/20/2024 12/07/24 Terrance Del Real MD senna-docusate sodium (Senokot-S) 8.6-50 MG tablet Take 1 tablet by mouth 2 times a day as needed for constipation. Patient not taking: Reported on 12/20/2024 12/07/24 Terrance Del Real MD Anti-Thrombotic Medications: Is this patient taking warfarin, new oral anti-coagulant, or anti-platelet medication? No If Yes, What Medication: N/A Current Hospital Medications: Current Medications[5] Objective Objective: Visit Vitals BP 108/73 (BP Location: Left arm, Patient Position: Lying) Pulse 89 Temp 36.8 ??C (98.3 ??F) (Oral) Ht 1.702 m (5' 7 ) Wt 70.3 kg (155 lb) SpO2 94% BMI 24.28 kg/m?? @ Physical Exam: Physical Exam Vitals reviewed. Constitutional: General: He is not in acute distress. HENT: Head: Atraumatic. Nose: Nose normal. Eyes: Extraocular Movements: Extraocular movements intact. Conjunctiva/sclera: Conjunctivae normal. Cardiovascular: Rate and Rhythm: Regular rhythm. Tachycardia present. Comments: HR in the 110's Pulmonary: Effort: Pulmonary effort is normal. No respiratory distress. Abdominal: General: There is no distension. Palpations: Abdomen is soft. Musculoskeletal: General: Normal range of motion. Skin: Coloration: Skin is jaundiced. Neurological: Mental Status: He is alert. Laboratory: CBC WBC 9.76 Hb 17.3 Plt 216 Hct 50.3 ANC 7.72 (H) INR 1.3 (H), PTT ??, Anti-Xa ?? MCV 85 BMP Na 139 Cl 106 BUN 15 Glu 143 (H) K 5.2 (H) Co2 21 (L) Cr 0.95 Ca 9.4 iCa ?? Mg 2.1, Phos 3.2 Lactate ?? LFT AST 63 (H) AlkPhos 197 (H) T Prot 6.8 ALK 131 (H) Bili 2.5 (H) Alb ?? D.Bili ?? Imaging: CT Abdomen Pelvis w IV Contrast Result Date: 12/25/2024 4.5 cm mass in the head of the pancreas resulting in pancreatic duct obstruction. There is 90 degrees abutment of the superior mesenteric artery. Otherwise no evidence of local vascular invasion. This likely represents pancreatic ductal adenocarcinoma. The subcentimeter nodules seen on prior MRI are not evident on CT. CRITICAL RESULT: No. COMMUNICATION: Per this written report. Drafted by Romaine Raya MD on 12/25/2024 2:58 PM Final report signed by Romaine Raya MD on 12/25/2024 3:[address] Head wo IV Contrast Result Date: 12/25/2024 No visible acute intracranial abnormality. CRITICAL RESULT: No. COMMUNICATION: Per this written report. Drafted by Madeline Gallardo on 12/25/2024 2:31 PM Final report signed by Madeline Gallardo on 12/25/2024 2:50 PM Radiographic Interpretation: I have reviewed the imaging above and agree with the radiologist interpretation. Assessment/Plan Assessment & Plan: Guanako Brock is a 64 y.o. male with PMHx notable for HFPEF (EF 45-60%), pAFib (not on anticoagulation), CAD s/p stents x8, and hypertension who presented to the [facility] on 12/25/2024 with concerns for intractable nausea, vomiting, and abdominal pain in the context of a newly identified pancreatic mass. - CT pancreas protocol obtained - no current evidence for metastatic disease - concern for pancreatic adenocarcinoma with potential biliary obstruction - will review lab results and scans to discuss potential operative intervention. Medical Problems Problem List * (Principal) Malignant neoplasm of pancreas, unspecified location of malignancy (CMS/HCC) Mass of head of pancreas Acute pancreatitis ELDER (acute kidney injury) (CMS/HCC) Hyponatremia Chronic heart failure with preserved ejection fraction (CMS/HCC) Overview Signed 12/04/2024 2:27 AM by Jeff Cramer APRN -ECHO 05/19/2021: LVEF is variable d/t arrhythmia, but is visually estimated at 45 - 60%. Paroxysmal A-fib (CMS/HCC) Essential hypertension Tobacco use disorder Pancreatic mass Upper abdominal pain Moderate protein-calorie malnutrition (CMS/HCC) Spinal stenosis of lumbar region with neurogenic claudication Overview Signed 11/20/2021 1:56 PM by Sae Rubio Added automatically from request for surgery [id number] Dispo: Continue Current Level of Care CODE STATUS: full code This Consult, Assessment, and Plan has been discussed with Dr. Navarro, Attending Physician Shoaib Ramachandran MD General Surgery, PGY-1 Pager: [phone] 7:16 PM 12/25/2024 [1] Past Medical History: Diagnosis Date A-fib (CMS/HCC) CHF (congestive heart failure) (CMS/HCC) Coronary artery disease Hypertension Lower back pain Numbness and tingling of both feet Spinal stenosis of lumbar region with neurogenic claudication 11/20/2021 Added automatically from request for surgery [id number] [2] Allergies Allergen Reactions Atorvastatin Hallucinations Happens with brand name only [3] Past Surgical History: Procedure Laterality Date CORONARY STENT PLACEMENT KNEE RECONSTRUCTION, MEDIAL PATELLAR FEMORAL LIGAMENT Left 1969 LUMBAR LAMINECTOMY Bilateral 12/11/2021 Posterolateral arthrodesis L3-L4, L4-L5, L5-S1; L4-L5 discectomy and TLIF by Dr. Mcnally TONSILLECTOMY [4] Family History Problem Relation Name Age of Onset Cancer Sister [5] Current Facility-Administered Medications Medication Dose Route Frequency Provider Last Rate Last Admin acetaminophen (Tylenol) tablet 650 mg 650 mg Oral q6h PRN Omar Barnhart MD 650 mg at 12/25/24 1522 enoxaparin (Lovenox) syringe 40 mg 40 mg Subcutaneous Daily Omar Barnhart MD 40 mg at 12/25/24 1524 gabapentin (Neurontin) capsule 300 mg 300 mg Oral TID Iesha Pride MD lactated Ringer's infusion 100 mL/hr Intravenous Continuous Iesha Pride MD 100 mL/hr at 12/25/24 1723 100 mL/hr at 12/25/24 1723 [START ON 12/26/2024] levoFLOXacin (Levaquin) tablet 500 mg 500 mg Oral Daily Omar Barnhart MD LORazepam (Ativan) tablet 0.5 mg 0.5 mg Oral q6h PRN Omar Barnhart MD metoprolol tartrate (Lopressor) tablet 25 mg 25 mg Oral BID Omar Barnhart MD 25 mg at 12/25/24 1522 ondansetron ODT (Zofran-ODT) disintegrating tablet 4 mg 4 mg Oral q6h PRN Omar Barnhart MD Or ondansetron (Zofran) injection 4 mg 4 mg Intravenous q6h PRN Omar Barnhart MD Or ondansetron (Zofran) 4 MG/5ML solution 4 mg 4 mg Oral q6h PRN Omar Barnhart MD oxyCODONE (Roxicodone) immediate release tablet 10 mg 10 mg Oral q4h PRN Omar Barnhart MD 10 mg at 12/25/24 1450 oxyCODONE (Roxicodone) immediate release tablet 5 mg 5 mg Oral q4h PRN Omar Barnhart MD prochlorperazine (Compazine) tablet 5 mg 5 mg Oral q6h PRN Omar Barnhart MD Or prochlorperazine (Compazine) suppository 25 mg 25 mg Rectal q12h PRN Omar Barnhart MD Or prochlorperazine (Compazine) injection 2.5 mg 2.5 mg Intravenous q6h PRN Omar Barnhart MD 2.5 mgat 12/25/24 1524 Or prochlorperazine (Compazine) injection 5 mg 5 mg Intramuscular q6h PRN Omar Barnhart MD senna-docusate (Shila-Colace) 8.6-50 MG per tablet 1 tablet 1 tablet Oral BID PRN Omar Barnhart MD sodium chloride 0.9 % flush 10 mL 10 mL Intravenous q12h Omar Barnhart MD 10 mL at 12/25/24 1524 And sodium chloride 0.9 % flush 10 mL 10 mL Intravenous PRN Omar Barnhart MD Current Outpatient Medications Medication Sig Dispense Refill furosemide (Lasix) 40 MG tablet Take 2 tablets by mouth every other day. ondansetron ODT (Zofran-ODT) 4 MG disintegrating tablet Dissolve 1 tablet on the tongue every 6 hours as needed for nausea or vomiting. 90 tablet 0 gabapentin (Neurontin) 300 MG capsule Take 1 capsule by mouth 4 times a day. (Patient taking differently: Take 4 capsules by mouth daily. Patient takes 4 capsules at once every day.) levoFLOXacin (Levaquin) 500 MG tablet Take 1 tablet by mouth daily for 5 days. 5 tablet 0 ondansetron ODT (Zofran-ODT) 4 MG disintegrating tablet Dissolve 1 tablet on the tongue every 6 hours as needed for nausea. 12 tablet 0 oxyCODONE (Roxicodone) 5 MG immediate release tablet Take 1 tablet by mouth every 4 hours as neededfor severe pain. 42 tablet 0 potassium chloride CR (Klor-Con M20) 20 MEQ ER tablet Take 2 tablets by mouth every other day. Withfurosemide (Patient not taking: Reported on 12/20/2024) senna-docusate sodium (Senokot-S) 8.6-50 MG tablet Take 1 tablet by mouth 2 times a day as needed for constipation. (Patient not taking: Reported on 12/20/2024) 60 tablet 2 Cosigned by Ronda Bedoya MD at 12/27/2024 2:12 PM EDT Associated attestation - Ronda Bedoya MD - 12/27/2024 2:12 PM EDT I saw and evaluated the patient with the resident/fellow. I discussed the case with the resident/fellow and agree with the findings and plan as documented. Reviewed his imaging Looks resectable but acute pancreatitis complicates surgical intervention Also, EF 15-30% is a complicating but not inhibitory factor Recommended pancreas rest and nutritional support Patient refused and wants to go home * Consults - Austin Jackson DO - 12/25/2024 3:22 PM EDTAssociated Order(s): IP CONSULT TO ONCOLOGY Images from the original note were not included. Division of Hematology and Oncology Medical Oncology Consult Note Patient Name: Guanako Brock Date of : 1960 64 y.o. Date: 12/25/24 Reason for Consult: pancreatic adenocarcinoma Primary Service: [facility] History of Present Illness: Guanako Brock is a 64 y.o. 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 Patient has been evaluated for abdominal mass in the outpatient setting. He was seen by amusement centre manager, Dr. Jaramillo, in the outpatient setting in 12/20/2024 and underwent EUS which revealed pancreatic mass and adenocarcinoma. Patientwas reportedly told to come to the hospital for evaluation, but this has been disputed. Regardless,patient presented for ongoing abdominal pain. Oncology consulted for new diagnosis of pancreatic adenocarcinoma. Review of Systems: A comprehensive 14 point review of systems was performed, noted to be negative with the pertinent positives documented in the HPI section of this note. Oncology History: [Associated problem not found] Oncology History No history exists. Past Medical History: Past Medical History[1] Past Surgical History: Surgical History[2] Family History: Family History[3] Reviewed and noncontributory Social History: Social History Socioeconomic History Marital status: Spouse name: Not on file Number of children: Not on file Years of education: Not on file Highest education level: Not on file Occupational History Not on file Tobacco Use Smoking status: Every Day Current packs/day: 0.50 Average packs/day: 0.5 packs/day for 48.0 years (24.0 ttl pk-yrs) Types: Cigarettes Smokeless tobacco: Never Vaping Use Vaping status: Never Used Substance and Sexual Activity Alcohol use: Never Drug use: Yes Frequency: 3.0 times per week Types: Marijuana Comment: every two or three days Sexual activity: Defer Other Topics Concern Occupational Exposure No Social History Narrative Not on file Social Drivers of Health Financial Resource Strain: Not on file Food Insecurity: No Food Insecurity (12/06/2024) Hunger [...] (Medical): No Lack of Transportation (Non-Medical): No Physical Activity: Not on file Stress: Not on file Social Connections: Not on file Intimate Partner Violence: Not At Risk (12/06/2024) Humiliation, Afraid, Rape, and Kick questionnaire Fear of Current or Ex-Partner: No Emotionally Abused: No Physically Abused: No Sexually Abused: No Housing Stability: Unknown (12/06/2024) Housing Stability Vital Sign Unable to Pay for Housing in the Last Year: No Number of Times Moved in the Last Year: Not on file Homeless in the Last Year: No Tobacco Use History[4] Social History Substance and Sexual Activity Alcohol Use Never Social History Substance and Sexual Activity Drug Use Yes Frequency: 3.0 times per week Types: Marijuana Comment: every two or three days Allergies: Allergies[5] Medications: Current Medications[6] Vital Signs: Visit Vitals BP (!) 124/102 (BP Location: Right arm, Patient Position: Lying) Pulse 115 Temp 36.6 ??C (97.8 ??F) (Oral) Resp 21 Performance Status 1: Restricted in physically strenuous activity but ambulatory and able to do light work Physical Exam: Gen: NAD, ill appearing and nontoxic. Alert and conversant. Eyes: No scleral icterus, normal conjunctivae HENT: Hearing normal, dentition normal. Mucus membranes are moist. Neck: supple, normal ROM. CV: warm and well perfused Resp: effort normal, breathing comfortably on room air GI: Abdomen is grossly nondistended MSK: No clubbing or cyanosis. Normal muscle tone. Skin: Warm, dry, no rash, no erythema, not diaphoretic, + pallor +jaundice Neuro: No gross neurologic deficits. Psych: mood and affect normal, judgment and insight appear normal. Lab Findings: Lab Results Component Value Date WBC 9.76 12/25/2024 HGB 17.3 12/25/2024 HCT 50.3 12/25/2024 MCV 85 12/25/2024 PLT 216 12/25/2024 Lab Results Component Value Date GLUCOSE 143 (H) 12/25/2024 CALCIUM 9.4 12/25/2024 NA 139 12/25/2024 K 5.2 (H) 12/25/2024 CO2 21 (L) 12/25/2024 CL 106 12/25/2024 BUN 15 12/25/2024 CREATININE 0.95 12/25/2024 Lab Results Component Value Date ALT 131 (H) 12/25/2024 AST 63 (H) 12/25/2024 ALKPHOS 197 (H) 12/25/2024 BILITOT 2.5 (H) 12/25/2024 Imaging: === 12/25/24 === CT ABDOMEN PELVIS W IV CONTRAST - Narrative - CLINICAL INDICATION: Abdominal pain, acute, nonlocalized TECHNIQUE: Multiple axial CT images were obtained from lung bases through pubic symphysis following administration of IV contrast, Omnipaque 350, 100 mL. Images of abdomen were obtained with three-phase liver protocol. Reformatted images in the coronal and sagittal planes were generated from the axial data set to facilitate diagnostic accuracy. Total DLP (Dose-Length Product): 1430.50 mGy.cm. Please note: The reported value represents the total of one or more individual components during the CT acquisition on this date and at this time, andas such, the same value may appear in more than one CT report depending on the interpreting/reporting physicians. COMPARISON: MRCP December 06, 2024 FINDINGS: Lower Chest: Basilar atelectasis. Right atrial enlargement. Solid Abdominal Organs: No arterial enhancing liver lesion. Mild heterogeneous venous phase enhancement. No discrete hepatic nodule or mass. Mild intrahepatic and extrahepatic bile duct dilation. Normal-appearing gallbladder. There is a mass in head of the pancreas. It is poorly marginated. It measures approximately 4.5 cm.This iliac axis is uninvolved. There is 90 degrees abutment of the superior mesenteric artery. There is no involvement of the portal vein or the superior mesenteric vein. There is abutment of the aorta. No involvement of the IVC or preaortic left renal vein. GI Tract/Mesentery/Peritoneum: The stomach is normal. The duodenum is abutted by the mass. No bowelobstruction. Normal appendix. No colonic inflammation. No peritoneal nodularity. No free air. Pelvic Viscera: The bladder is decompressed. The prostate is large Lymph Nodes/Vasculature: No adenopathy is evident. There is atherosclerosis of aorta. There is focal infrarenal abdominal aortic ectasia with noncalcified mural thrombus. The ectatic segment measuresup to 3.3 cm. Free Fluid: No free fluid Musculoskeletal and Body Wall: Posterior instrumented fusion of the lumbar spine. No suspicious osseous abnormality. Retrolisthesis of L2 on L3. Degenerative disc disease. - Impression - 4.5 cm mass in the head of the pancreas resulting in pancreatic duct obstruction. There is 90 degrees abutment of the superior mesenteric artery. Otherwise no evidence of local vascular invasion. This likely represents pancreatic ductal adenocarcinoma. The subcentimeter nodules seen on prior MRI are not evident on CT. CRITICAL RESULT: No. COMMUNICATION: Per this written report. Drafted by Romaine Raya MD on 12/25/2024 2:58 PM Final report signed by Romaine Raya MD on 12/25/2024 3:07 PM Assessment and Plan: Guanako Brock is a 64 y.o. 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 Pancreatic adenocarcinoma Patient presents with persistent abdominal pain new diagnosis of pancreatic adenocarcinoma. MRCP on12/07/2024 reveal hypo enhancing 2 cm focus over the pancreas, 1.1 cm lesion in the right hepatic. Eventual head of pancreatic mass EUS FNA revealed atypical cells most consistent with adenocarcinoma. In addition, the patient's CA 19 9 levels elevated 158. Recommendations: Obtain CT chest, abdomen, pelvis. Can check repeat CA 19-9- one time. Recommend Surgical Oncology evaluation to see if the patient is a surgical candidate We will need to send for genetic testing- NGS and germline Eventually, he will need to set up with one of our GI oncologists Will con't to follow and discuss with surg onc ACTIVE ISSUES: Malignant neoplasm of pancreas, unspecified location of malignancy (CMS/HCC) Principal Problem: Malignant neoplasm of pancreas, unspecified location of malignancy (CMS/HCC) Thank you for the consult. Medical oncology will continue to follow. Recommendations were communicated to the primary service. Please call with additional questions or concerns. Patient was seen and examined with attending physician, Dr. Albarran, who assisted with formulation of the plan as described. Austin Jackson D.O. Hematology and Oncology Fellow [facility] [1] Past Medical History: Diagnosis Date A-fib (CMS/HCC) CHF (congestive heart failure) (CMS/HCC) Coronary artery disease Hypertension Lower back pain Numbness and tingling of both feet Spinal stenosis of lumbar region with neurogenic claudication 11/20/2021 Added automatically from request for surgery [id number] [2] Past Surgical History: Procedure Laterality Date CORONARY STENT PLACEMENT KNEE RECONSTRUCTION, MEDIAL PATELLAR FEMORAL LIGAMENT Left 1969 LUMBAR LAMINECTOMY Bilateral 12/11/2021 Posterolateral arthrodesis L3-L4, L4-L5, L5-S1; L4-L5 discectomy and TLIF by Dr. Mcnally TONSILLECTOMY [3] Family History Problem Relation Name Age of Onset Cancer Sister [4] Social History Tobacco Use Smoking Status Every Day Current packs/day: 0.50 Average packs/day: 0.5 packs/day for 48.0 years (24.0 ttl pk-yrs) Types: Cigarettes Smokeless Tobacco Never [5] Allergies Allergen Reactions Atorvastatin Hallucinations Happens with brand name only [6] Current Facility-Administered Medications: acetaminophen (Tylenol) tablet 650 mg, 650 mg, Oral, q6h PRN, Omar Barnhart MD, 650 mg at 12/25/24 1522 enoxaparin (Lovenox) syringe 40 mg, 40 mg, Subcutaneous, Daily, Omar Barnhart MD [START ON 12/26/2024] furosemide (Lasix) tablet 40 mg, 40 mg, Oral, Daily, Omar Barnhart MD gabapentin (Neurontin) capsule 300 mg, 300 mg, Oral, 4x daily, Omar Barnhart MD [START ON 12/26/2024] levoFLOXacin (Levaquin) tablet 500 mg, 500 mg, Oral, Daily, Omar Barnhart MD LORazepam (Ativan) tablet 0.5 mg, 0.5 mg, Oral, q6h PRN, Omar Barnhart MD metoprolol tartrate (Lopressor) tablet 25 mg, 25 mg, Oral, BID, Omar Barnhart MD, 25 mg at 12/25/24 1522 ondansetron ODT (Zofran-ODT) disintegrating tablet 4 mg, 4 mg, Oral, q6h PRN OR ondansetron (Zofran) injection 4 mg, 4 mg, Intravenous, q6h PRN OR ondansetron (Zofran) 4 MG/5ML solution 4 mg,4 mg, Oral, q6h PRN, Omar Barnhart MD oxyCODONE (Roxicodone) immediate release tablet 10 mg, 10 mg, Oral, q4h PRN, Omar Barnhart MD oxyCODONE (Roxicodone) immediate release tablet 5 mg, 5 mg, Oral, q4h PRN, Omar Barnhart MD prochlorperazine (Compazine) tablet 5 mg, 5 mg, Oral, q6h PRN OR prochlorperazine (Compazine) suppository 25 mg, 25 mg, Rectal, q12h PRN OR prochlorperazine (Compazine) injection 2.5 mg, 2.5 mg, Intravenous, q6h PRN OR prochlorperazine (Compazine) injection 5 mg, 5 mg, Intramuscular, q6h PRN, Omar Barnhart MD senna-docusate (Shila-Colace) 8.6-50 MG per tablet 1 tablet, 1 tablet, Oral, BID PRN, Omar Barnhart MD Insert peripheral IV, , , Once AND Saline lock IV, , , Once AND sodium chloride 0.9 % flush10 mL, 10 mL, Intravenous, q12h AND sodium chloride 0.9 % flush 10 mL, 10 mL, Intravenous, PRN,Omar Barnhart MD Current Outpatient Medications: furosemide (Lasix) 40 MG tablet, Take 2 tablets by mouth every other day., Disp: , Rfl: ondansetron ODT (Zofran-ODT) 4 MG disintegrating tablet, Dissolve 1 tablet on the tongue every 6 hours as needed for nausea or vomiting., Disp: 90 tablet, Rfl: 0 gabapentin (Neurontin) 300 MG capsule, Take 1 capsule by mouth 4 times a day. (Patient taking differently: Take 4 capsules by mouth daily. Patient takes 4 capsules at once every day.), Disp: , Rfl: levoFLOXacin (Levaquin) 500 MG tablet, Take 1 tablet by mouth daily for 5 days., Disp: 5 tablet, Rfl: 0 ondansetron ODT (Zofran-ODT) 4 MG disintegrating tablet, Dissolve 1 tablet on the tongue every 6 hours as needed for nausea., Disp: 12 tablet, Rfl: 0 oxyCODONE (Roxicodone) 5 MG immediate release tablet, Take 1 tablet by mouth every 4 hours as needed for severe pain., Disp: 42 tablet, Rfl: 0 potassium chloride CR (Klor-Con M20) 20 MEQ ER tablet, Take 2 tablets by mouth every other day. With furosemide (Patient not taking: Reported on 12/20/2024), Disp: , Rfl: senna-docusate sodium (Senokot-S) 8.6-50 MG tablet, Take 1 tablet by mouth 2 times a day as needed for constipation. (Patient not taking: Reported on 12/20/2024), Disp: 60 tablet, Rfl: 2 Cosigned by Jason Albarran MD at 12/28/2024 1:30 PM EDT Associated attestation - Jason Albarran MD - 12/28/2024 1:30 PM EDT I saw and evaluated the patient with the resident/fellow. I discussed the case with the resident/fellow and agree with the findings and plan as documented. * H&P - Omar Barnhart MD - 12/25/2024 12:30 PM EDTAssociated Order(s): Consult to Hospital Medicine Images from the original note were not included. Consult to Hospital Medicine Consult performed by: Omar Barnhart MD Consult ordered by: Omar Barnhart MD Reason for consult: Pancreatic mass we will need workup Subjective Chief complaint Abdominal pain inability to maintain inability to eat along with nausea and vomiting no Zofran no oxycodone. History Of Present Illness Guanako Brock is a 64 y.o. male presenting with with a known medical history of chronic HFpEF (last EF 45-60%), pAfib (no AC), CAD s/p stents x8, HTN, smoker, and neuropathy presented to ED with the same symptoms that he was originally admitted for on 12/04. On 12/04 he was admitted for work upof his pancreatic mass, he had some concerns about insurance and left AMA. He then presented again on 12/05 this time staying. Was discharged on 12/07 with oxycodone and Zofran. He was seen by Dr. Jaramillo as an outpatient on 12/20/2024 for an ERCP and endoscopic ultrasound biopsy. Only EUS was done which showed the results of the pancreatic mass to be adenocarcinoma. He is presenting again for the same reasons. Since he has been home his pain is ongoing. Patient continues to have ongoing abdominal pain. He has finished his course of oxycodone and Zofran. Tuesday night patient was nauseous vomiting unable to tolerate any food. Results of the biopsy were found yesterday. Dr. Jaramillo spoke with the patient and wrote a letter in the chart. Patient and decided to come in to the hospitalbecause of the ongoing continued pain and directed by Gastroenterology. This telegraphic typewriter installer has spoken gastroenterology who stated they do not have any recollection of the patient being directed to come intothe hospital. However the patient and have clearly stated they were directed to come to the hospital because of the ongoing pain and insurance. He continues to have generalized epigastric pain that radiates all over the abdomen. It is a 7/10 pain that is reduced to a 3/10 pain after oxycodone and is manageable. He is extremely nauseous unable to maintain any by mouth intake. Zofran did help with keep food down. Patient has ran out of Zofran. Denies palpitations headache blurry vision diarrhea weakness numbness tingling or any other issues. Upon arrival to the emergency room patient was given a stat dose of Tylenol lactated Ringer's 1 L Zofran and oxycodone. Labs were reviewed showing a white blood cell count of 9.76 hemoglobin of 17.3 grams/deciliter hematocrit of 30.5 with a platelet count of 216. Absolute neutrophil count of 7.72. INR 1.3. Glucose of 143. Potassium was elevated to 5.2 on a hemolyzed specimen along with alkaline phosphatase AST of 63 ALT of 131. Total bilirubin is 2.5. Bicarb is 21. At this time gastroenterologystated no need to admit the patient from their standpoint unless he has symptoms. Medical oncology would like the patient to stay have CT of the chest abdomen and pelvis a consult from surgical oncology and a consult for medical oncology with close outpatient follow up for treatment. Thus patient is admitted to Medicine for further evaluation of the pancreatic mass pain management as well as connection to outpatient facilities. Patient will need strong outpatient support as well as help with insurance. Medical/Surgical/Social/Family History I have reviewed and updated the patient history. Travel History Relevant International Travel History: Travel Screening Question Response Have you been in contact with someone who was sick? No / Unsure Do you have any of the following new or worsening symptoms? None of these Have you traveled internationally or domestically in the last month? No Travel History Travel since 11/25/24 No documented travel since 11/25/24 Relevant Domestic Travel History: NONE Immunizations VACCINE / DOSE Flu Tetanus Pneumovax Shingles Allergies Atorvastatin Outpatient medications in system Home Medications[1] Medications ordered for hospitalization Current Scheduled Medications[2] Current Continuous Medications[3] Current PRN Medications[4] Objective Review of Systems All other systems reviewed and are negative. Physical Exam Vitals reviewed. Constitutional: General: He is not in acute distress. Appearance: Normal appearance. He is well-developed. He is not ill-appearing. HENT: Head: Normocephalic and atraumatic. Nose: Nose normal. Eyes: General: No scleral icterus. Cardiovascular: Rate and Rhythm: Regular rhythm. Tachycardia present. Pulmonary: Effort: Pulmonary effort is normal. Abdominal: General: Bowel sounds are normal. There is no distension. Palpations: Abdomen is soft. Tenderness: There is no abdominal tenderness. Musculoskeletal: General: Normal range of motion. Cervical back: Normal range of motion. Right lower leg: No edema. Left lower leg: No edema. Skin: General: Skin is warm. Coloration: Skin is jaundiced. Neurological: General: No focal deficit present. Mental Status: He is alert and oriented to person, place, and time. Mental status is at baseline. Psychiatric: Mood and Affect: Mood normal. Behavior: Behavior normal. Last Recorded Vitals Blood pressure (!) 130/99, pulse 110, temperature 36.8 ??C (98.2 ??F), temperature source Oral, resp. rate 19, height 1.702 m (5' 7 ), weight 70.3 kg (155 lb), SpO2 97%. Results Review {Vanishing Link Review Results :[id number] I have reviewed the latest lab and imaging results. Assessment & Plan Malignant neoplasm of pancreas, unspecified location of malignancy (CMS/HCC) Guanako Brock chronic HFpEF (last EF 45-60%), pAfib (no AC), CAD s/p stents x8, HTN, smoker, andneuropathy presented to ED with abdominal pain concerning for pancreatic carcinoma that was recently found on biopsy. Adenocarcinoma of the unknown stage, abdominal pain, nausea, hyperbilirubinemia: Patient presentedagain to the emergency room with severe abdominal pain, found to have acute pancreatic mass which is adenocarcinoma on EUS on 12/20/2024. Patient has finished his course of oxycodone and Zofran at home. He also has a issues with his insurance and is unable to have insurance at this time. Thus he was not able to get more medication. Of note labs are notable for a total bilirubin of 2.5 although ALT and AST are from a hemolyzed specimen they are elevated at 63 and 131. CA 19 9 was 158, MRCP does not show any mass in the liver but pancreatic on K mass suspicious for adenocarcinoma there is a small hemangioma versus FNH in the right hepatic lobe. Consult Oncology, we will need close outpatient follow up as well as pain management Consult surgical oncology, patient follow up as soon as possible Follow up CT of the head chest abdomen and pelvis with IV contrast Trend bilirubin daily on LFTs Trend CA 19 9 daily Trend input and output Given recent you as an elevated bilirubin continue with Levaquin levofloxacin 500 mg by mouth dailyfor 5 days. Pain management with oxycodone oxycodone 5 mg by mouth for moderate pain 10 mg by mouth for severe pain Tylenol 650 mg by mouth every 6 hours PRN Zofran and Compazine PRN for nausea Heart failure preserved ejection fraction last EF of 45 to 60%, AFib, coronary artery disease status post stents, hypertension: Patient has a known history of heart disease last echo shows an EF of 45-60% in 1. No signs of overt failure no JVD. Continue with Lasix furosemide 40 mg by mouth daily Repeat echocardiogram stat Start Lopressor metoprolol tartrate 25 mg by mouth daily Encourage the patient to have anticoagulation given recent cancer plus AFib. Patient is at high risk for developing a clot and potential stroke versus [place]. thus would recommend the patient being on Xarelto versus Eliquis Given patient's insurance problems we will require pharmacy once crit patient will have Medicaid Medicare kicking in today or tomorrow we will need to have social work help. Telemetry for 96 hours. Venous thromboembolism prophylaxis Patient on enoxaparin Lovenox enoxaparin 40 mg subcutaneous every 24 hours Diet Dietary Orders (From admission, onward) Start Ordered 12/25/24 1220 Adult diet Diet texture: Regular Diet effective now References: IDDSI Diet Texture Guide Question: Diet texture Answer: Regular 12/25/24 1223 Code Status: Full Code [1] (Not in a hospital admission) [2] enoxaparin, 40 mg, Subcutaneous, Daily [START ON 12/26/2024] furosemide, 40 mg, Oral, Daily gabapentin, 300 mg, Oral, 4x daily [START ON 12/26/2024] levoFLOXacin, 500 mg, Oral, Daily metoprolol tartrate, 25 mg, Oral, BID sodium chloride, 10 mL, Intravenous, q12h [3] [4] PRN medications: oxyCODONE, senna-docusate, Insert peripheral IV AND Saline lock IV ANDsodium chloride AND sodium chloride * Nursing Note - Abisai Alexandra RN - 12/25/2024 7:53 AM EDT Task Description - Mr. Brock needs to be seen by his PCP next week (Dr. Raimundo Chirinos). He was given a week's supplyof anti-emetics and pain medication. May need refills. Also needs to be checked if worsening biliary obstruction (Jaundice, hyperbilirubinemia). - Med Onc and Surg Onc (Dr. Navarro) wants to see him GERARD, ideally within 2 weeks, but as mentioned he was overwhelmed and asked for an appointment for one month (which we worry is too late). Try to get him to Dr. Chirinos first. - Unfortunately, TTE showed an EF of 15-30%, moderate to severe MR, RVSP mildly elevated. He will benefit from further GDMT titration (SGLT-2, MRA, ARNI/ACEI/ARB) and Cardiology eval but let's have PCP talk to him first. Appointment Description 12/27/2024 at 1615: Nurse Navigator (NN) called [facility] and spoke with Devika who advised is scheduled for a PCP hospital follow up with Dr. Raimundo Chirinos on 12/31. NN advised he was discharged with a weeks work of nausea and pain meds and may need refills and also needs to be checkedif worsening biliary obstruction (Jaundice, hyperbilirubinemia). Devika voiced understanding. NN faxed Mr. [facility] Discharge Summary, fna, surg path and recent lab results to Dr. Chirinos (fax: [phone]) via [employer]. 01/01/2025 at 1311: NN called [facility] and spoke with Devika who advised they did receive Mr. [facility] records and he did attend his PCP hospital follow up yesterday with Dr. Chirinos, visit note states need for cardiology follow up, but Dr. Chirinos has not yet placed the referral. Devika advisedshe would ask Dr. Chirinos for cards referral status update. NN advised will call next week to verify if Cards referral placed. NN also advised Mr. Brock is scheduled for a [facility] appt on 01/24. 01/01/2025 at 1542: NN received a call from KENNETH Johnson for Dr. Chirinos, who advised Mr. Brock's bilirubin result from yesterday was 8.6. His bilirubin level when checked on 12/26 at was 1.8. NN sent [employer] Secure Chat message to Milly Pedrzaa and Stacy Zaldivar, Onc Sched, asking if onc appt can be moved to this week and they advised no sooner appts available. NN sent an [employer] Secure Chat message toDr. Pride, Dr. Jason Albarran and Dr. Nito Balderas, Onc, advising of above. Dr. Pride replied advising he should be evaluated in the ED. NN called KENNETH Johnson, and advised no sooner [facility] appts available and that he needs to come to ED to be evaluated. Elizabeth advised Dr. Chirinos will call Mr. Brock to discuss and that he'll request he come to ED. Elizabeth also advised she'll fax yesterday's lab results to [facility]. NN called Mr. Brock and spoke with his who advised Dr. Chirinos had just spoken with them and they plan to leave within the next hour to come to ED. 01/02/2025 at 0852: NN reviewed Epic and Mr. Brock is [facility] after presenting to the ED yesterday. 01/07/2025 at 1439: NN reviewed Epic and Mr. Brock was discharged on 01/03. 01/24 oncology office visit details were included in his AVS. 01/25/2025 at 1328: NN reviewed Epic and Mr. Brock attended his 01/24 Medical Oncology office visit with Dr. Balderas. Visit Note indicates he wants to focus on his quality of life, does not want to move forward with the treatment and a referral to Palliative Care was placed. NN sent an SiOxt message to Dr. Pride advising NN has completed her request. Cosigned by Iesha Pride MD at 01/25/2025 2:34 PM EDT Associated attestation - Iesha Pride MD - 01/25/2025 2:34 PM EDT Appreciate our NN's assistance! * Care Plan - Maddy Lugo RN - 12/25/2024 7:47 AM EDT Pt will stay informed on plan of care as evidenced by hourly rounding * Care Plan - Noah Garcia RN - 12/25/2024 7:47 AM EDT Problem: Adult Inpatient Plan of Care Goal: Plan of Care Review Outcome: Ongoing, Progressing Flowsheets (Taken 12/26/2024 1034) Progress: improving Plan of Care Reviewed With: patient Goal: Patient-Specific Goal (Individualized) Outcome: Ongoing, Progressing Goal: Absence of Hospital-Acquired Illness or Injury Outcome: Ongoing, Progressing Goal: Optimal Comfort and Wellbeing Outcome: Ongoing, Progressing Goal: Readiness for Transition of Care Outcome: Ongoing, Progressing Problem: Pain Acute Goal: Optimal Pain Control and Function Outcome: Ongoing, Progressing Intervention: Prevent or Manage Pain Flowsheets (Taken 12/26/2024 1034) Medication Review/Management: medications reviewed Problem: Pancreatitis Goal: Fluid and Electrolyte Balance Outcome: Ongoing, Progressing Goal: Absence of Infection Signs and Symptoms Outcome: Ongoing, Progressing Goal: Optimal Nutrition Delivery Outcome: Ongoing, Progressing Goal: Optimal Pain Control and Function Outcome: Ongoing, Progressing Goal: Effective Oxygenation and Ventilation Outcome: Ongoing, Progressing * ED Provider Notes - Izabela Potts MD - 12/25/2024 7:47 AM EDT Images from the original note were not included. - HPI Chief Complaint Patient presents with Pain HPI 64 y.o. male with past history of chronic HFpEF (last EF 45-60%), pAfib (no AC), CAD s/p stents x8,HTN, pancreatic mass suspected newly diagnosed pancreatic cancer via ERCP on 12/20/24 who presents to ED for abd pain and n/v. Patient endorses 1.5 months of abdominal pain. Describes it as a dull waxing and waning pain that radiates to his back. Patient was admitted from 610/613 for similar symptoms where MRCP at that time was concerning for possible pancreatic mass. Patient was discharged and had follow up ERCP on 12/20 that showed pancreatic cancer. Patient was told these findings yesterday after discussion with GI team, patient was instructed to present to the ED due to persistence of his symptoms. Patient denies fever, chest pain, shortness of breath. Endorses waxing and waning nausea and vomiting. Denies dysuria/hematuria. Last BM was yesterday. Denies diarrhea. Patient History Past Medical History[1] Surgical History[2] Family History[3] Social History[4] Allergies: Allergies[5] Physical Exam ED Triage Vitals [12/25/24 0752] Temp Heart Rate Resp BP 36.3 ??C (97.3 ??F) 76 16 118/64 SpO2 Temp src Heart Rate Source Patient Position 96 % -- -- Sitting BP Location FiO2 (%) Right arm -- Physical Exam Constitutional: General: He is not in acute distress. Appearance: Normal appearance. He is not ill-appearing. HENT: Left Ear: Ear canal normal. Mouth/Throat: Mouth: Mucous membranes are moist. Pharynx: Oropharynx is clear. Eyes: Extraocular Movements: Extraocular movements intact. Conjunctiva/sclera: Conjunctivae normal. Cardiovascular: Rate and Rhythm: Normal rate and regular rhythm. Pulses: Normal pulses. Heart sounds: Normal heart sounds. Pulmonary: Effort: Pulmonary effort is normal. Breath sounds: Normal breath sounds. Abdominal: General: Bowel sounds are normal. Palpations: Abdomen is soft. Tenderness: There is abdominal tenderness. Comments: Generalized ttp Musculoskeletal: General: Normal range of motion. Neurological: General: No focal deficit present. Mental Status: He is alert and oriented to person, place, and time. Psychiatric: Mood and Affect: Mood normal. Behavior: Behavior normal. [place] Coma Scale Score: 15 ED Course & MDM - Assessment: 64 y.o. male presents to ED with complaint of abd pain. It should be noted that the chronic conditions includes chronic HFpEF (last EF 45-60%), pAfib (no AC), CAD s/p stents x8, HTN, pancreatic mass suspected newly diagnosed pancreatic cancer via ERCP on 12/20/24, which currently is not at goal therapy. This complicates the clinical picture because it Comorbidities: may be exacerbating symptoms, increases the amount and complexity of data to be reviewed, and complicates the clinical workup Differential Diagnosis: pancreatic cancer, pancreatitis, electrolyte abnormality, among others In order to fully explore the differential diagnosis the following treatments and tests were ordered: ED Medication Administration from 12/25/2024 0747 to 12/25/2024 1223 Date/Time Order Dose Route Action 12/25/2024 0910 EDT acetaminophen (Tylenol) tablet 1,000 mg 1,000 mg Oral Given 12/25/2024 0910 EDT oxyCODONE (Roxicodone) immediate release tablet 5 mg 5 mg Oral Given 12/25/2024 0928 EDT lactated Ringer's infusion 1,000 mL 1,000 mL Intravenous New Bag 12/25/2024 0930 EDT ondansetron (Zofran) injection 4 mg 4 mg Intravenous Given 12/25/2024 1200 EDT lactated Ringer's infusion 1,000 mL 0 mL Intravenous Stopped All Other Orders Ordered Status Ordering Provider 12/25/24 1223 Basic metabolic panel Morning draw Final result [facility] 12/25/24 1223 CBC and Differential Morning draw Final result [facility] 12/25/24 1223 Magnesium, Plasma Morning draw Final result [facility] 12/25/24 1223 Phosphorus Morning draw Final result [facility] 12/25/24 1223 PT/INR Morning draw Final result [facility] 12/25/24 1223 APTT Morning draw Final result [facility] 12/25/24 1223 Vitamin B12 Morning draw Final result [facility] 12/25/24 1223 Ferritin Morning draw Final result [facility] 12/25/24 1223 Iron & Total Iron Binding Capacity, Plasma (Includes Transferrin) Morning draw Final result [facility] 12/25/24 1223 Lipid panel Morning draw Final result [facility] 12/25/24 1223 Hemoglobin A1c Morning draw In process [facility] 12/25/24 1223 Cortisol Morning draw Final result [facility] 12/25/24 1223 Folate Morning draw Final result [facility] 12/25/24 1223 Hepatic Function Panel Morning draw Final result [facility] 12/25/24 1223 Intake and output Every 6 hours Acknowledged YAMILKA BARNHARTOK A 12/25/24 1223 Ambulate patient 2 times daily Comments: Ambulate twice daily with assistance Acknowledged OBEYOMAR A 12/25/24 1223 Vital Signs Every 8 hours Placed in And Linked Group Acknowledged OBEY, OMAR A 12/25/24 1223 Pulse Oximetry Every 8 hours Placed in And Linked Group Acknowledged OBEY OMAR A 12/25/24 1223 Up in chair 3 times daily Acknowledged OBEY, OMAR A 12/25/24 1223 Daily weights Daily Acknowledged OBEY, OMAR A 12/25/[address] Abdomen Pelvis w IV Contrast Once Final result OBEY OMAR A 12/25/[address] Chest w IV Contrast Once In process OBEY OMAR A 12/25/[address] Head wo IV Contrast Once Final result OBEY, OMAR A 12/25/24 1223 Inpatient consult - Oncology Once Specialty: Oncology Provider: (Not yet assigned) Completed OBEY OMAR A 12/25/24 1223 Inpatient consult to Surgical Oncology Once Provider: (Not yet assigned) Acknowledged OBEY OMAR Galvan 12/25/24 1223 Okay To Give Nicotine Replacement Until discontinued Acknowledged OBEY OMAR A 12/25/24 1223 Admit to inpatient Once Acknowledged OBEY, OMAR A 12/25/24 1223 Full code Continuous Acknowledged OBEY OMAR A 12/25/24 1223 Adult diet Diet texture: Regular Diet effective now Acknowledged OBEY, OMAR A 12/25/24 1223 Mobility Orders Until discontinued Acknowledged OBEY, OMAR A 12/25/24 1223 Notify physician (specify parameters) Until discontinued Acknowledged OBEY OMAR A 12/25/24 1223 Insert peripheral IV Once Placed in And Linked Group Acknowledged OBEY OMAR A 12/25/24 1223 Saline lock IV Once Placed in And Linked Group Acknowledged OBEY OMAR A 12/25/24 0812 Lipase STAT Final result OBEY OMAR A 12/25/24 1024 Consult to Hospital Medicine Once Specialty: Internal Medicine Provider: (Not yet assigned) Completed OBEY OMAR Mandy 12/25/24 0812 CBC w/diff STAT Final result IZABELA POTTS 12/25/24 0812 PT-INR STAT Final result IZABELA POTTS 12/25/24 0812 CMP STAT Final result IZABELA POTTS 12/25/24 0812 Magnesium STAT Final result IZABELA POTTS 12/25/24 0812 Phosphorus STAT Final result IZABELA POTTS 12/25/24 1129 Discharge Ambulatory referral to [facility] Oncology Ordered OMAR BARNHART ED Course as of 12/26/24 0827 TueDec 25, [id number] Upon initial evaluation, patient is well-appearing and in no acute distress. Patient is hemodynamically stable, saturating well on room air, and grossly without neurological deficits. [DK] 0841 Pt instructed to present to ED for admission by Dr. Jaramillo with GI service. [DK] 0922 ERCP from 12/20: There was a heterogeneous and irregular mass-like area of abnormal pancreatic parenchyma measuring 26 mm x 26 mm with poorly defined and irregular margins was visualized in the pancreas. This was not typical for tumor but was at least concerning for possible tumor and so 3 fineneedle biopsy passes were taken. [DK] 0923 FNA from 12/20 biopsy consistent with adenocarcinoma. [DK] 0953 WBC: 9.76 [DK] 1043 At this time I consulted Hospital Medicine to evaluate the pt in the ED due to intractable abdpain, n/v and new pancreatic malignancy. Lipase elevated at 454. 599 3 weeks ago. Likely persistently elevated d/t chronic pancreatitis in the setting of malignancy. [DK] 1244 Upon evaluation by Hospital Medicine, they agreed to admit the pt to their service and assumedfull responsibility of the patient. [DK] ED Course User Index [DK] Izabela Potts MD Clinical Impressions as of 12/26/24826 Malignant neoplasm of pancreas, unspecified location of malignancy (CMS/HCC) Epigastric pain Nausea and vomiting, unspecified vomiting type Elevated lipase Social Determinates of Health Risks (including Economic Stability, Education and level of understanding, Healthcare access and quality and concerning social factors): None identified on this visit Ultimately, this patient was Was admitted (Admission) The primary encounter diagnosis was Malignant neoplasm of pancreas, unspecified location of malignancy (CMS/HCC). Diagnoses of Acute pancreatitis, unspecified complication status, unspecified pancreatitis type, Pancreatic mass, Epigastric pain, Nausea and vomiting, unspecified vomiting type, Malignant neoplasm of body of pancreas (CMS/HCC), and Elevated lipase were also pertinent to this visit.. Patient believed to require admission for the listed diagnoses. The Internal Medicine service was consulted for admission and was agreeable to admit to Acute Floor (Med/Surg). ED Prescriptions Medication Sig Dispense Start Date End Date Auth. Provider ondansetron ODT (Zofran-ODT) 4 MG disintegrating tablet Dissolve 1 tablet on the tongue every 6 hours as needed for nausea. 12 tablet 12/25/2024 01/24/2025 Izabela Potts MD ondansetron ODT (Zofran-ODT) 4 MG disintegrating tablet Dissolve 1 tablet on the tongue every 6 hours as needed for nausea or vomiting. 90 tablet 12/25/2024 -- Omar Barnhart MD Discharge Instructions You were seen and evaluated in the Emergency Department. Please return to ED if your symptoms worsen, change in location, change in severity, new symptoms develop or if you become concerned for your health. Please follow-up with oncology for symptoms. Return to the ED after being is not controlled oxycodone. Take oxycodone as needed for pain not relieved with Tylenol and. Disposition Admit Admitting/Attending Physician: BULMARO FONG [[id number]] Provider Care Team: MONIKA MELISSA 15 [[id number]] Are they the primary team?: Yes [1] Follow-Ups: Follow up with [facility] Multidisciplinary Oncology Clinic (Hematology and Oncology) Discharge Orders Ambulatory referral to Surgical Oncology Authorized Discharge Ambulatory referral to Hematology/Medical Oncology Authorized - [1] Past Medical History: Diagnosis Date A-fib ([facility]) CHF (congestive heart failure) ([facility]) Coronary artery disease Hypertension Lower back pain Numbness and tingling of both feet Spinal stenosis of lumbar region with neurogenic claudication 11/20/2021 Added automatically from request for surgery [id number] [2] Past Surgical History: Procedure Laterality Date [...] Atorvastatin Hallucinations Happens with brand name only Izabela Potts MD Resident 12/26/24826 Cosigned by Danny Lucio MD at 12/27/2024 9:09 AM EDT Associated attestation - Danny Lucio MD - 12/27/2024 9:09 AM EDT I saw and evaluated the patient with the resident/fellow. I discussed the case with the resident/fellow and agree with the findings and plan as documented. * ED Triage Notes - Mar Wong RN - 12/25/2024 7:47 AM EDT Was diagnosed with pancreatic cancer this week and was told to come to the ED to be admitted for symptoms control (pain/nausea), and for more testing. documented in this encounter Plan of Treatment Scheduled Referrals Name Type Priority Associated Diagnoses Orde r Schedule Discharge Ambulatory referral to Hematology/Medical Oncology Outpatient Referral Routine Acute pancreatitis, unspecified complication status, unspecified pancreatitis type Pancreatic mass Expected: 12/25/2024 (Approximate), Expires: 06/27/2026 Ambulatory referral to Surgical Oncology Outpatient Referral Routine Acute pancreatitis, unspecified complication status, unspecified pancreatitis type Pancreatic mass Expected: 12/25/2024 (Approximate), Expires: 06/28/2026 Discharge Ambulatory referral to Hematology/Medical Oncology Outpatient Referral Routine Malignant neoplasm of pancreas, unspecified location of malignancy (CMS/HCC) 1 Occurrences starting 12/26/2024 until 06/29/2026 Ambulatory referral to External PCP Outpatient Referral Routine Malignant neoplasm of body of pancreas (CMS/HCC) 1 Occurrences starting 12/26/2024 until 06/29/2026 documented as of this encounter Procedures Procedure Name Priority Date/Time Associated Diagnosis Comments ECHO, ADULT TRANSTHORACIC COMPLETE STAT 12/26/2024 9:55 AM EDT N-TERMINAL PROBNP, PLASMA Routine 12/26/2024 2:50 AM EDT IRON & TOTAL IRON BINDING CAPACITY, PLASMA (INCLUDES TRANSFERRIN) Routine 12/26/2024 2:50 AM EDT CANCER ANTIGEN, GI (CA 19.9) Routine 12/26/2024 2:50 AM EDT APTT Routine 12/26/2024 2:50 AM EDT PROTHROMBIN TIME(PT) / INR Routine 12/26/2024 2:50 AM EDT CBC WITH AUTO DIFFERENTIAL Routine 12/26/2024 2:50 AM EDT PREALBUMIN, PLASMA Routine 12/26/2024 2: 50 AM EDT PHOSPHORUS, PLASMA Routine 12/26/2024 2: 50 AM EDT MAGNESIUM, PLASMA Routine 12/26/2024 2:5 0 AM EDT HEMOGLOBIN A1C Routine 12/26/2024 2:50 AM EDT FOLATE, SERUM Routine 12/26/2024 2:50 AM EDT FERRITIN, SERUM Routine 12/26/2024 2:50 AM EDT VITAMIN B12, SERUM Routine 12/26/2024 2: 50 AM EDT CORTISOL Routine 12/26/2024 2:50 AM EDT CEA, SERUM Routine 12/26/2024 2:50 AM EDT HEPATIC FUNCTION PANEL Routine 2:50 AM EDT LIPID PROFILE, PLASMA Routine 12/26/2024 2:50 AM EDT BASIC METABOLIC PANEL, PLASMA Routine 12/26/2024 2:[address] ABDOMEN PELVIS W IV CONTRAST STAT 12/25/2024 2:[address] CHEST W IV CONTRAST STAT 2:[address] HEAD WO IV CONTRAST STAT 2:27 PM EDT LIPASE, PLASMA STAT 12/25/2024 12:49 PM EDT PROTHROMBIN TIME(PT) / INR STAT 12/25/2024 9:08 AM EDT CBC WITH AUTO DIFFERENTIAL STAT 12/25/2024 9:08 AM EDT PHOSPHORUS, PLASMA STAT 12/25/2024 9: 08 AM EDT MAGNESIUM, PLASMA STAT 12/25/2024 9:0 8 AM EDT COMPREHENSIVE METABOLIC PANEL, PLASMA STAT 12/25/2024 9:08 AM EDT documented in this encounter Results * ECHO, ADULT TRANSTHORACIC COMPLETE (12/26/2024 9:55 AM EDT) BSA 1.81 m2 ALLEN ISCV Height 170.0 ALLEN ISCV Weight 70.0 ALLEN ISCV LVIDd 60 mm ALLEN ISCV LVIDs 52 mm ALLEN ISCV IVSd 8 mm ALLEN ISCV LVPWd 9 mm ALLEN ISCV LV MASS(C)D 200 g ALLEN ISCV [facility] CV ECHO LV MASS INDEX 111 g/m2 ALLEN ISCV LV RWT 0.28 mm ALLEN ISCV LV EDV(MOD-4ch) 139 mL ALLEN ISCV LV ESV(MOD4ch) 115 mL ALLEN ISCV EF(MOD-sp4) 17 % ALLEN ISCV LV EDV(MOD-2ch) 171 mL ALLEN ISCV LV ESV(MOD2ch) 136 mL ALLEN ISCV EF(MOD-sp2) 20 % ALLEN ISCV EDV(MOD-bp) 155 mL ALLEN ISCV ESV(MOD-bp) 126 mL ALLEN ISCV EF(MOD-bp) 19 % ALLEN ISCV MV E Vmax 166.0 cm/s ALLEN ISCV TR Vmax 333.7 cm/s ALLEN ISCV LA dimension 64 mm ALLEN ISCV TAPSE 10 mm ALLEN ISCV TR Max PG 45 mmHG ALLEN ISCV PA acc time 110 msec ALLEN ISCV mean PAP 30 mmHg ALLEN ISCV Ao Root Diam 31 mm ALLEN ISCV PA HI(ACCEL) 30.6 mmHg ALLEN ISCV LVLs ap2 8.8 mm ALLEN ISCV RVSP 48 mmHg ALLEN ISCV RAP systole 3 mmHg ALLEN ISCV Anatomical Region Laterality Modality Echocardiography Narrative 12/26/2024 1:33 PM EDT Left Ventricle: The left ventricle is normal size. There is normal left ventricular myocardial thickness and mass. The left ventricular systolic function is severely reduced. The LVEF is variable due to arrhythmia but is visually estimated at 15 - 30%. Unable to assess diastolic function due to arrhythmia. There is global hypokinesis of the left ventricle. Mitral Valve: The mitral valve leaflets are normal in appearance with no evidence of mitral valve prolapse. There is moderate to severe mitral regurgitation with an eccentric jet. The width of the vena contracta suggests moderate (0.3 - 0.6 cm) mitral regurgitation. Right Ventricle: The right ventricle is moderately dilated. The right ventricular systolic function is moderately reduced. The estimated right ventricular systolic pressure is 48 mmHg. Right ventricular systolic pressure is mildly elevated (35-50mmHg). Left Atrium: The left atrium is severely dilated by visual assessment. Pericardium: No pericardial effusion. There is no recent study available for direct [id number] comparison. Left Ventricle The left ventricle is normal size. There is normal left ventricular myocardial thickness and mass. The left ventricular systolic function is severely reduced. The LVEF is variable due to arrhythmia but is visually estimated at 15 - 30%. Unable to assess diastolic function due to arrhythmia. There is global hypokinesis of the left ventricle. Right Ventricle The right ventricle is moderately dilated. The right ventricular systolic function is moderately reduced. The estimated right ventricular systolic pressure is 48 mmHg. Right ventricular systolic pressure is mildly elevated (35-50mmHg). Left Atrium The left atrium is severely dilated by visual assessment. Intravenous injection of agitated saline demonstrate late appearance of bubbles in the left heart consistent with intrapulmonary shunting. Right Atrium The right atrium is dilated by visual assessment. IVC/SVC Based on the IVC size and respiratory variation, the estimated right atrial pressure is 3mmHg. Mitral Valve The mitral valve leaflets are normal in appearance with no evidence of mitral valve prolapse. There is no mitral valve vegetation. There is moderate to severe mitral regurgitation with an eccentric jet. The width of the vena contracta suggests moderate (0.3 - 0.6 cm) mitral regurgitation. There is no mitral stenosis. Tricuspid Valve The tricuspid valve is normal in appearance. There is no tricuspid valve vegetation. There is mild tricuspid regurgitation. There is no tricuspid stenosis. Aortic Valve The aortic valve appears to be trileaflet. There is calcification of the aortic valve leaflets. There is aortic annular calcification present. There is no aortic valve vegetation. There is no valvular regurgitation. There is no hemodynamically significant valvular aortic stenosis. Pulmonic Valve The pulmonic valve is normal in appearance. There is no pulmonic valve vegetation. There is mild pulmonic regurgitation. There is no pulmonic stenosis. Pericardium No pericardial effusion. Great Vessels The aortic root is normal in size. The sinus of Valsalva (aortic root) diameter is 31 mm by leading edge to leading edge method. In the maximally visualized portion, the ascending aorta appears normal in size. In the maximally visualized portion, the aortic arch appears normal in size. The main pulmonary artery is not well visualized. Study Details A complete transthoracic echocardiogram using two-dimensional (2D), m-mode, color and spectral flow Doppler imaging was performed. During the study the apical, parasternal, subcostal and suprasternal view was captured. Overall the study quality was adequate. Height: 170.0 cm. Weight: 70.0 kg. BSA: 1.81 m2. The heart rhythm during this exam was most suggestive of atrial fibrillation/flutter. Study Recommendation There is no recent study available for direct [id number] comparison. us Omar Barnhart MD CV ECHO PROCEDURES Final Resul t * (ABNORMAL) CEA (12/26/2024 2:50 AM EDT) CEA, Serum 8.5(H) <4.0 ng/mL 12/26/2024 3:56 AM EDT [facility] Blood Venous blood specimen / Unknown Venipuncture / Unknown 12/26/2024 2:50 AM EDT 12/26/2024 3:17 AM EDT [facility] - 12/26/2024 3:56 AM EDT Normal range for smokers: < 5.5 ng/ml Normal range for non-smokers: <=4.0 ng/ml Performed by [employer] electrochemiluminescent immunoassay. Results obtained with different test methods or kits cannot be used interchangeably. us Omar Barnhart MD LAB BLOOD ORDERABLES Final Res ult Performing Organization Address [facility] Co de Phone Number [facility] [address] [place] [address] * (ABNORMAL) Cancer antigen 19-9 (12/26/2024 2:50 AM EDT) CA 19.9 248(H) <36 U/mL 12/26/2024 3:56 AM EDT [facility] Blood Venous blood specimen / Unknown Venipuncture / Unknown 12/26/2024 2:50 AM EDT 12/26/2024 3:17 AM EDT [facility] - 12/26/2024 3:56 AM EDT Performed by [employer]iza electrochemiluminescent immunoassay. Results obtained with different test methods or kits cannot be used interchangeably. us Omar Barnhart MD LAB BLOOD ORDERABLES Final Res ult Performing Organization Address City/[facility] Co de Phone Number [facility] [address] [place] [address] * (ABNORMAL) Prealbumin (12/26/2024 2:50 AM EDT) Prealbumin, Plasma 10.0(L) 20.0 - 41.0 mg/dL 12/26/2024 3:47 AM EDT [facility] Blood Venous blood specimen / Unknown Venipuncture / Unknown 12/26/2024 2:50 AM EDT 12/26/2024 3:09 AM EDT us Iesha Pride MD LAB BLOOD ORDERABLE S Final Result Performing Organization Address [facility]/ZIP Co de Phone Number [facility] [address] [place] [address] * (ABNORMAL) N-Terminal Probnp (12/26/2024 2:50 AM EDT) N-Terminal, PROBNP, Plasma 4,363(H) 0 - 899 pg/mL 12/26/2024 3:46 AM EDT [facility] Blood Venous blood specimen / Unknown Venipuncture / Unknown 12/26/2024 2:50 AM EDT 12/26/2024 3:09 AM EDT us Omar Barnhart MD LAB BLOOD ORDERABLES Final Res ult Performing Organization Address [facility]/ZIP Co de Phone Number [facility] [address] [place] [address] * (ABNORMAL) Hepatic Function Panel (12/26/2024 2:50 AM EDT) Conjugated Bilirubin, Plasma 0.6(H) <=0.3 mg/dL 12/26/2024 3:46 AM EDT [facility] Comment:Hemolyzed, result ma y be falsely decreased. Alkaline Phosphatase, Plasma 160(H) 40 - 115 U/L 12/26/2024 3:46 AM EDT [facility] Total Bilirubin, Plasma 1.8(H) 0.2 - 1.1 mg/dL 12/26/2024 3:46 AM EDT [facility] Albumin, Plasma 3.4(L) 3.5 - 5.2 g/dL 12/26/2024 3:46 AM EDT [facility] Total Protein 6.0(L) 6.3 - 7.9 g/dL 12/26/2024 3:46 AM EDT [facility] ALT, Plasma 102(H) 10 - 50 U/L 12/26/2024 3:46 AM EDT [facility] AST, Plasma 32 10 - 50 U/L 12/26/2024 3:46 AM EDT [facility] Comment:Hemolyzed, result ma y be falsely increased. Blood Venous blood specimen / Unknown Venipuncture / Unknown 12/26/2024 2:50 AM EDT 12/26/2024 3:09 AM EDT us Omar Barnhart MD LAB BLOOD ORDERABLES Final Res ult Performing Organization Address City/[facility]/ZIP Co de Phone Number [facility] [address] [place] [address] * Folate (12/26/2024 2:50 AM EDT) Folate, Serum 5.8 >4.6 ng/mL 12/26/2024 4:05 AM EDT [facility] Blood Venous blood specimen / Unknown Venipuncture / Unknown 12/26/2024 2:50 AM EDT 12/26/2024 3:17 AM EDT us Omar Barnhart MD LAB BLOOD ORDERABLES Final Res ult Performing Organization Address [facility] Co de Phone Number [facility] [address] [place] [address] * Cortisol (12/26/2024 2:50 AM EDT) Cortisol 13.00 Before 10am: 3.7 - 19.4. After 5pm: 2.9 - 17.3 ug/dL 12/26/2024 4:24 AM EDT [facility] Comment:Testing performed on [employer], standardized against [facility] Reference Standard concentration values assigned by LC-MS/MS and verified by BCR 192 and BCR 193 certified reference materials. Blood Venous blood specimen / Unknown Venipuncture / Unknown 12/26/2024 2:50 AM EDT 12/26/2024 3:17 AM EDT us Omar Barnhart MD LAB REF LAB BLOOD AND FLUID OR D Final Result Performing Organization Address [facility]/ZIP Co de Phone Number [facility] [address] [place] [address] * (ABNORMAL) Hemoglobin A1c (12/26/2024 2:50 AM EDT) Hemoglobin A1c 6.5(H) <5.7 % 12/26/2024 10:53 AM EDT [facility] Blood Venous blood specimen / Unknown Venipuncture / Unknown 12/26/2024 2:50 AM EDT 12/26/2024 3:17 AM EDT Narrative [facility] - 12/26/2024 10:53 AM EDT HA1C Interpretive Data: Diagnosis of Diabetes: Diabetic > or = 6.5% Pre-diabetic 5.7 to 6.4% Non-diabetic < or = 5.6% Glycemic Targets for Type I and Type II Diabetics: Non- Adults <7.0% Adults <6.0% Children and Adolescents <7.5% Source: [place] [employer]. Standards of medical care in diabetes,2017. Diabetes Care.2017:40 (suppl 1):S1-S135. us Omar Barnhart MD LAB BLOOD ORDERABLES Final Res ult Performing Organization Address [facility] Co de Phone Number [facility] [address] [place] [address] * (ABNORMAL) Lipid panel (12/26/2024 2:50 AM EDT) Cholesterol, Plasma 119 <200 mg/dL 12/26/2024 3:46 AM EDT [facility] Comment: Cholesterol Reference Range (age >17 years): Desirable <200 mg/dL Borderline 200 to 239 mg/dL Undesirable >239 mg/dL HDL 37(L) >=40 mg/dL 12/26/2024 3:46 AM EDT [facility] Comment: HDL Cholesterol Reference Ranges (age >17 years): Female, acceptable > or = 50 mg/dL Male, acceptable > or = 40 mg/dL Triglycerides, Plasma 75 <150 mg/dL 12/26/2024 3:46 AM EDT [facility] Comment: Triglyceride Reference Range (age >17 years): Desirable: <150 mg/dL Borderline high: 150 to 199 mg/dL High: 200 to 499 mg/dL Very high: >499 mg/dL Increased risk of pancreatitis: >1000 mg/dL Cholesterol/HDL Ratio 3 12/26/2024 3:46 AM EDT [facility] LDL, Calculated 67 <100 mg/dL 3:46 AM EDT [facility] Comment: LDL Cholesterol Reference Range (age >17 years): Optimal: <100 mg/dL Near or above optimal: 100 - 129 mg/dL Borderline high: 130 - 159 mg/dL High: 160 - 189 mg/dL Very high: >189 mg/dL LDL Cholesterol Reference Range (age <18 years): Desirable: <110 mg/dL Borderline: 110 - 129 mg/dL Undesirable: >130 mg/dL LDL Cholesterol is calculated using the Alves/NIH equation. Fasting greater than or equal to 12 hours? No 12/26/2024 3:46 AM EDT [facility] Blood Venous blood specimen / Unknown Venipuncture / Unknown 12/26/2024 2:50 AM EDT 12/26/2024 3:09 AM EDT us Omar Barnhart MD LAB BLOOD ORDERABLES Final Res ult [facility] [address] [place] [address] * Iron & Total Iron Binding Capacity, Plasma (Includes Transferrin) (12/26/2024 2:50 AM EDT) Iron, Plasma 56 50 - 170 ug/dL 12/26/2024 3:46 AM EDT [facility] Transferrin, Plasma 214 200 - 360 mg/dL 12/26/2024 3:46 AM EDT [facility] Total Iron Binding Capacity, Plasma 268 240 - 450 ug/mL 12/26/2024 3:46 AM EDT [facility] Transferrin Saturation 21 14 - 50 % 12/26/2024 3:46 AM EDT [facility] Blood Venous blood specimen / Unknown Venipuncture / Unknown 12/26/2024 2:50 AM EDT 12/26/2024 3:09 AM EDT Result Gael Barnhart MD LAB BLOOD ORDERABLES Final Res ult Performing Organization Address City/[facility] [place] [address] * Ferritin (12/26/2024 2:50 AM EDT) Ferritin, Serum 113 20 - 400 ng/mL 12/26/2024 3:56 AM EDT [facility] Blood Venous blood specimen / Unknown Venipuncture / Unknown 12/26/2024 2:50 AM EDT 12/26/2024 3:17 AM EDT Result Gael Barnhart MD LAB BLOOD ORDERABLES Final Res ult Performing Organization Address [facility] [place] [address] * Vitamin B12 (12/26/2024 2:50 AM EDT) Vitamin B12, Serum 979 210 - 1,033 pg/mL 12/26/2024 4:05 AM EDT [facility] Blood Venous blood specimen / Unknown Venipuncture / Unknown 12/26/2024 2:50 AM EDT 12/26/2024 3:17 AM EDT us Omar Barnhart MD LAB BLOOD ORDERABLES Final Res ult Performing Organization Address City/[facility]/[place] [address] * (ABNORMAL) APTT (12/26/2024 2:50 AM EDT) aPTT 36(H) 25 - 35 sec 12/26/2024 3:24 AM EDT [facility] Blood Venous blood specimen / Unknown Venipuncture / Unknown 12/26/2024 2:50 AM EDT 12/26/2024 3:09 AM EDT us Omar Barnhart MD LAB BLOOD ORDERABLES Final Res ult Performing Organization Address City/[facility] Co de Phone Number [facility] [address] [place] [address] * (ABNORMAL) PT/INR (12/26/2024 2:50 AM EDT) Prothrombin Time 16.6(H) 12.0 - 14.3 sec 12/26/2024 3:24 AM EDT [facility] INR 1.4(H) 0.9 - 1.1 12/26/2024 3:24 AM EDT [facility] Blood Venous blood specimen / Unknown Venipuncture / Unknown 12/26/2024 2:50 AM EDT 12/26/2024 3:09 AM EDT Narrative [facility] - 12/26/2024 3:24 AM EDT OPTIMAL INR RANGES FOR PATIENT ON ORAL ANTICOAGULANT THERAPY Prevention of venous thromboembolism INR 2.0 to 3.0 In patients with heart disease: Atrial fibrillation INR 2.0 to 3.0 Valvular heart disease INR 2.0 to 3.0 Tissue heart valves INR 2.0 to 3.0 Mechanical prosthetic valves INR 2.5 to 3.5 Prevention of recurrent [place] INR 2.5 to 3.5 us Omar Barnhart MD LAB BLOOD ORDERABLES Final Res ult Performing Organization Address [facility] [place] [address] * Phosphorus (12/26/2024 2:50 AM EDT) Phosphorus, Plasma 3.5 2.5 - 4.5 mg/dL 12/26/2024 3:47 AM EDT [facility] Blood Venous blood specimen / Unknown Venipuncture / Unknown 12/26/2024 2:50 AM EDT 12/26/2024 3:09 AM EDT us Omar Barnhart MD LAB BLOOD ORDERABLES Final Res ult [facility] [address] [place] [address] * Magnesium, Plasma (12/26/2024 2:50 AM EDT) Magnesium, Plasma 2.1 1.9 - 2.4 mg/dL 12/26/2024 3:46 AM EDT [facility] Blood Venous blood specimen / Unknown Venipuncture / Unknown 12/26/2024 2:50 AM EDT 12/26/2024 3:09 AM EDT us Omar Barnhart MD LAB BLOOD ORDERABLES Final Res ult [facility] [address] [place] [address] * (ABNORMAL) CBC and Differential (12/26/2024 2:50 AM EDT) Pathologist [facility] WBC Count 9.17 3.70 - 10.30 10*3/uL LAB HEMATOLOGY METHOD 12/26/2024 3:14 AM EDT [facility] RBC Count 5.37 4.60 - 6.10 10*6/uL LAB HEMATOLOGY METHOD 12/26/2024 3:14 AM EDT [facility] HGB 15.5 13.7 - 17.5 g/dL LAB HEMATOLOGY METHOD 12/26/2024 3:14 AM EDT [facility] HCT 47.2 40.0 - 51.0 % LAB HEMATOLOGY METHOD 12/26/2024 3:14 AM EDT [facility] Platelet Count 236 155 - 369 10*3/uL LAB HEMATOLOGY METHOD 12/26/2024 3:14 AM EDT [facility] MCV 88 79 - 98 fL LAB HEMATOLOGY METHOD 12/26/2024 3:14 AM EDT [facility] MCH 28.9 26.0 - 32.0 pg LAB HEMATOLOGY METHOD 12/26/2024 3:14 AM EDT [facility] MCHC 32.8 30.7 - 35.5 g/dL LAB HEMATOLOGY METHOD 12/26/2024 3:14 AM EDT [facility] RDW 19.0(H) 11.5 - 14.5 % LAB HEMATOLOGY METHOD 12/26/2024 3:14 AM EDT [facility] MPV 11.5 8.8 - 12.5 fL LAB HEMATOLOGY METHOD 12/26/2024 3:14 AM EDT [facility] nRBC 0.0 <=0.0 per 100 WBCs LAB HEMATOLOGY METHOD 12/26/2024 3:14 AM EDT [facility] Differential Type Automated LAB HEMATOLOGY METHOD 12/26/2024 3:14 AM EDT [facility] Neutrophils % 67 % LAB HEMATOLOGY METHOD 12/26/2024 3:14 AM EDT [facility] Lymphocytes % 23 % LAB HEMATOLOGY METHOD 12/26/2024 3:14 AM EDT [facility] Monocytes % 6 % LAB HEMATOLOGY METHOD 12/26/2024 3:14 AM EDT [facility] Eosinophils % 3 % LAB HEMATOLOGY METHOD 12/26/2024 3:14 AM EDT [facility] Basophils % 1 % LAB HEMATOLOGY METHOD 12/26/2024 3:14 AM EDT [facility] Immature Granulocytes % 0 % LAB HEMATOLOGY METHOD 12/26/2024 3:14 AM EDT [facility] Neutrophils Absolute 6.20(H) 1.60 - 6.10 10*3/uL LAB HEMATOLOGY METHOD 12/26/2024 3:14 AM EDT [facility] Lymphocytes Absolute 2.09 1.20 - 3.90 10*3/uL LAB HEMATOLOGY METHOD 12/26/2024 3:14 AM EDT [facility] Monocytes Absolute 0.55 0.30 - 0.90 10*3/uL LAB HEMATOLOGY METHOD 12/26/2024 3:14 AM EDT [facility] Eosinophils Absolute 0.25 0.00 - 0.50 10*3/uL LAB HEMATOLOGY METHOD 12/26/2024 3:14 AM EDT [facility] Basophils Absolute 0.06 0.00 - 0.10 10*3/uL LAB HEMATOLOGY METHOD 12/26/2024 3:14 AM EDT [facility] Immature Granulocytes Absolute 0.02 0.00 - 0.06 10*3/uL LAB HEMATOLOGY METHOD 12/26/2024 3:14 AM EDT [facility] Blood Venous blood specimen / Unknown Venipuncture / Unknown 12/26/2024 2:50 AM EDT 12/26/2024 3:09 AM EDT Narrative [facility] - 12/26/2024 3:14 AM EDT Therapeutic decision making should be based on absolute values, rather than percentages. us Omar Barnhart MD LAB BLOOD ORDERABLES Final Res ult [facility] [address] [place] [address] * (ABNORMAL) Basic metabolic panel (12/26/2024 2:50 AM EDT) Glucose, Plasma 128(H) 74 - 99 mg/dL 12/26/2024 3:47 AM EDT [facility] BUN, Plasma 18 8 - 23 mg/dL 12/26/2024 3:47 AM EDT [facility] Creatinine, Plasma 1.10 0.70 - 1.20 mg/dL 12/26/2024 3:47 AM EDT [facility] [facility] BUN/Creatinine Ratio 16 12/26/2024 3:47 AM EDT [facility] Sodium, Plasma 139 136 - 145 mmol/L 12/26/2024 3:47 AM EDT [facility] Potassium, Plasma 4.7 3.6 - 4.9 mmol/L 12/26/2024 3:47 AM EDT [facility] Chloride, Plasma 105 97 - 107 mmol/L 12/26/2024 3:47 AM EDT [facility] CO2, Plasma 23 22 - 29 mmol/L 12/26/2024 3:47 AM EDT [facility] Anion Gap 11 6 - 16 mmol/L 12/26/2024 3:47 AM EDT [facility] Total Calcium, Plasma 8.9 8.9 - 10.2 mg/dL 12/26/2024 3:47 AM EDT [facility] eGFRcr 75.0 mL/min/1.7 3m*2 12/26/2024 3:47 AM EDT [facility] Comment:Reported eGFRcr in m L/min/1.73m2 is based the CKD-EPI 2020 equation that does not use a race coefficient. Blood Venous blood specimen / Unknown Venipuncture / Unknown 12/26/2024 2:50 AM EDT 12/26/2024 3:09 AM EDT us Omar Barnhart MD LAB BLOOD ORDERABLES Final Res ult [facility] [address] [place] [address] * CT Chest w IV Contrast (12/25/2024 2:27 PM EDT) Anatomical Region Laterality Modality Chest Computed Tomogra phy Impressions 12/26/2024 1:59 PM EDT No evidence of metastatic disease. CRITICAL RESULT: No. COMMUNICATION: Per this written report. Drafted by Romaine Raya MD on 12/26/2024 1:57 PM Final report signed by Romaine Raya MD on 12/26/2024 1:59 PM Narrative 12/26/2024 1:59 PM EDT CLINICAL INDICATION: Acute Pancreatic Mass concern for adenocarcinoma metastasis TECHNIQUE: Multiple CT axial images were obtained from thoracic inlet through upper abdomen following administration of IV contrast, Omnipaque 350, 100 mL. Total DLP (Dose-Length Product): 1430.50 mGy.cm. Please note: The reported value represents the total of one or more individual components during the CT acquisition on this date and at this time, and as such, the same value may appear in more than one CT report depending on the interpreting/reporting physicians. COMPARISON: None. FINDINGS: Lymph Nodes: There is no evidence of adenopathy Thyroid: The thyroid is normal Cardiovascular: There is calcific coronary artery atherosclerosis. There is left ventricular enlargement. No pericardial effusion. No great vessel stenosis. Atherosclerosis of the aortic arch. No evidence of pulmonary embolus. Lungs: There is mild basilar atelectasis. No suspicious pulmonary nodule. Pleura: No pleural effusion Musculoskeletal and Body Wall: No suspicious osseous abnormality. Procedure Note Romaine Raya MD - 12/26/2024 CLINICAL INDICATION: Acute Pancreatic Mass concern for adenocarcinoma metastasis TECHNIQUE: Multiple CT axial images were obtained from thoracic inlet through upperabdomen following administration of IV contrast, Omnipaque 350, 100 mL. Total DLP (Dose-Length Product): 1430.50 mGy.cm. Please note: The reportedvalue represents the total of one or more individual components during theCT acquisition on this date and at this time, and as such, the same valuemay appear in more than one CT report depending on theinterpreting/reporting physicians. COMPARISON: None. FINDINGS: Lymph Nodes: There is no evidence of adenopathy Thyroid: The thyroid is normal Cardiovascular: There is calcific coronary artery atherosclerosis. Thereis left ventricular enlargement. No pericardial effusion. No great vesselstenosis. Atherosclerosis of the aortic arch. No evidence of pulmonaryembolus. Lungs: There is mild basilar atelectasis. No suspicious pulmonarynodule. Pleura: No pleural effusion Musculoskeletal and Body Wall: No suspicious osseous abnormality. IMPRESSION: No evidence of metastatic disease. CRITICAL RESULT: No. COMMUNICATION: Per this written report. Drafted by Romaine Raya MD on 12/26/2024 1:57 PM Final report signed by Romaine Raya MD on 12/26/2024 1:59 PM Omar Barnhart MD IMG CT PROCEDURES Final Result * CT Abdomen Pelvis w IV Contrast (12/25/2024 2:27 PM EDT) Anatomical Region Laterality Modality Abdomen, Pelvis Computed Tomogra phy Impressions 12/25/2024 3:07 PM EDT 4.5 cm mass in the head of the pancreas resulting in pancreatic duct obstruction. There is 90 degrees abutment of the superior mesenteric artery. Otherwise no evidence of local vascular invasion. This likely represents pancreatic ductal adenocarcinoma. The subcentimeter nodules seen on prior MRI are not evident on CT. CRITICAL RESULT: No. COMMUNICATION: Per this written report. Drafted by Romaine Raya MD on 12/25/2024 2:58 PM Final report signed by Romaine Raya MD on 12/25/2024 3:07 PM Narrative 12/25/2024 3:07 PM EDT CLINICAL INDICATION: Abdominal pain, acute, nonlocalized TECHNIQUE: Multiple axial CT images were obtained from lung bases through pubic symphysis following administration of IV contrast, Omnipaque 350, 100 mL. Images of abdomen were obtained with three-phase liver protocol. Reformatted images in the coronal and sagittal planes were generated from the axial data set to facilitate diagnostic accuracy. Total DLP (Dose-Length Product): 1430.50 mGy.cm. Please note: The reported value represents the total of one or more individual components during the CT acquisition on this date and at this time, and as such, the same value may appear in more than one CT report depending on the interpreting/reporting physicians. COMPARISON: MRCP December 06, 2024 FINDINGS: Lower Chest: Basilar atelectasis. Right atrial enlargement. Solid Abdominal Organs: No arterial enhancing liver lesion. Mild heterogeneous venous phase enhancement. No discrete hepatic nodule or mass. Mild intrahepatic and extrahepatic bile duct dilation. Normal-appearing gallbladder. There is a mass in head of the pancreas. It is poorly marginated. It measures approximately 4.5 cm. This iliac axis is uninvolved. There is 90 degrees abutment of the superior mesenteric artery. There is no involvement of the portal vein or the superior mesenteric vein. There is abutment of the aorta. No involvement of the IVC or preaortic left renal vein. GI Tract/Mesentery/Peritoneum: The stomach is normal. The duodenum is abutted by the mass. No bowel obstruction. Normal appendix. No colonic inflammation. No peritoneal nodularity. No free air. Pelvic Viscera: The bladder is decompressed. The prostate is large Lymph Nodes/Vasculature: No adenopathy is evident. There is atherosclerosis of aorta. There is focal infrarenal abdominal aortic ectasia with noncalcified mural thrombus. The ectatic segment measures up to 3.3 cm. Free Fluid: No free fluid Musculoskeletal and Body Wall: Posterior instrumented fusion of the lumbar spine. No suspicious osseous abnormality. Retrolisthesis of L2 on L3. Degenerative disc disease. Procedure Note Romaine Raya MD - 12/25/2024 CLINICAL INDICATION: Abdominal pain, acute, nonlocalized TECHNIQUE: Multiple axial CT images were obtained from lung bases through pubicsymphysis following administration of IV contrast, Omnipaque 350, 100 mL.Images of abdomen were obtained with three-phase liver protocol.Reformatted images in the coronal and sagittal planes were generated fromthe axial data set to facilitate diagnostic accuracy. Total DLP (Dose-Length Product): 1430.50 mGy.cm. Please note: The reportedvalue represents the total of one or more individual components during theCT acquisition on this date and at this time, and as such, the same valuemay appear in more than one CT report depending on theinterpreting/reporting physicians. COMPARISON: MRCP December 06, 2024 FINDINGS: Lower Chest: Basilar atelectasis. Right atrial enlargement. Solid Abdominal Organs: No arterial enhancing liver lesion. Mildheterogeneous venous phase enhancement. No discrete hepatic nodule ormass. Mild intrahepatic and extrahepatic bile duct dilation.Normal-appearing gallbladder. There is a mass in head of the pancreas. It is poorly marginated. Itmeasures approximately 4.5 cm. This iliac axis is uninvolved. There is 90degrees abutment of the superior mesenteric artery. There is noinvolvement of the portal vein or the superior mesenteric vein. There isabutment of the aorta. No involvement of the IVC or preaortic left renalvein. GI Tract/Mesentery/Peritoneum: The stomach is normal. The duodenum isabutted by the mass. No bowel obstruction. Normal appendix. No colonicinflammation. No peritoneal nodularity. No free air. Pelvic Viscera: The bladder is decompressed. The prostate is large Lymph Nodes/Vasculature: No adenopathy is evident. There isatherosclerosis of aorta. There is focal infrarenal abdominal aorticectasia with noncalcified mural thrombus. The ectatic segment measures upto 3.3 cm. Free Fluid: No free fluid Musculoskeletal and Body Wall: Posterior instrumented fusion of the lumbarspine. No suspicious osseous abnormality. Retrolisthesis of L2 on L3.Degenerative disc disease. IMPRESSION: 4.5 cm mass in the head of the pancreas resulting in pancreatic ductobstruction. There is 90 degrees abutment of the superior mesentericartery. Otherwise no evidence of local vascular invasion. This likelyrepresents pancreatic ductal adenocarcinoma. The subcentimeter nodules seen on prior MRI are not evident on CT. CRITICAL RESULT: No. COMMUNICATION: Per this written report. Drafted by Romaine Raya MD on 12/25/2024 2:58 PM Final report signed by Romaine Raya MD on 12/25/2024 3:07 PM Omar Banrhart MD IMG CT PROCEDURES Final Result * CT Head wo IV Contrast (12/25/2024 2:27 PM EDT) Anatomical Region Laterality Modality Head Computed Tomogra phy Impressions 12/25/2024 2:50 PM EDT No visible acute intracranial abnormality. CRITICAL RESULT: No. COMMUNICATION: Per this written report. Drafted by Madeline Gallardo on 12/25/2024 2:31 PM Final report signed by Madeline Gallardo on 12/25/2024 2:50 PM Narrative 12/25/2024 2:50 PM EDT CLINICAL INDICATION: Acute Pancreatic Mass concern for adenocarcinoma metastasis TECHNIQUE: Spiral axial CT images of the head were obtained without contrast administration. Total DLP (Dose-Length Product): 1430.50 mGy.cm. Please note: The reported value represents the total of one or more individual components during the CT acquisition on this date and at this time, and as such, the same value may appear in more than one CT report depending on the interpreting/reporting physicians. COMPARISON: None. FINDINGS: Diagnostic Quality: Adequate. There is age-appropriate volume loss with prominence of the ventricles and sulci. There is no acute large cortical infarct, intracranial hemorrhage or large mass on this noncontrast study. There is a mild amount of non-specific but likely ischemic white matter lesions. Soft Tissues: No significant soft tissue swelling is present. Skull: There are no calvarial destructive lesions or fractures. Sinuses and Mastoids: Mucous retention cyst versus polyp in the left maxillary sinus without obstruction. Remaining paranasal sinuses are clear. The mastoid air cells are clear. Procedure Note Madeline Gallardo MD - 12/25/2024 CLINICAL INDICATION: Acute Pancreatic Mass concern for adenocarcinoma metastasis TECHNIQUE: Spiral axial CT images of the head were obtained without contrastadministration. Total DLP (Dose-Length Product): 1430.50 mGy.cm. Please note: The reportedvalue represents the total of one or more individual components during theCT acquisition on this date and at this time, and as such, the same valuemay appear in more than one CT report depending on theinterpreting/reporting physicians. COMPARISON: None. FINDINGS: Diagnostic Quality: Adequate. There is age-appropriate volume loss with prominence of the ventricles andsulci. There is no acute large cortical infarct, intracranial hemorrhage or largemass on this noncontrast study. There is a mild amount of non-specific butlikely ischemic white matter lesions. Soft Tissues: No significant soft tissue swelling is present. Skull: There are no calvarial destructive lesions or fractures. Sinuses and Mastoids: Mucous retention cyst versus polyp in the leftmaxillary sinus without obstruction. Remaining paranasal sinuses areclear. The mastoid air cells are clear. IMPRESSION: No visible acute intracranial abnormality. CRITICAL RESULT: No. COMMUNICATION: Per this written report. Drafted by Madeline Gallardo on 12/25/2024 2:31 PM Final report signed by Madeline Gallardo on 12/25/2024 2:50 PM Omar Barnhart MD IMG CT PROCEDURES Final Result * (ABNORMAL) Lipase (12/25/2024 12:49 PM EDT) Lipase, Plasma 454(H) 19 - 63 U/L 12/25/2024 1:21 PM EDT [facility] Blood Venous blood specimen / Unknown Venipuncture / Unknown 12/25/2024 12:49 PM EDT 12/25/2024 12:52 PM EDT Omar Barnhart MD LAB BLOOD ORDERABLES Final Res ult Performing Organization Address City/[facility]/ZIP Co de Phone Number [facility] [address] [place] [address] * Phosphorus (12/25/2024 9:08 AM EDT) Phosphorus, Plasma 3.2 2.5 - 4.5 mg/dL 12/25/2024 10:01 AM EDT [facility] Blood Venous blood specimen / Unknown Venipuncture / Unknown 12/25/2024 9:08 AM EDT 12/25/2024 9:33 AM EDT Danny Lucio MD LAB BLOOD ORDERABLES Final Re sult [facility] [address] [place] [address] * Magnesium (12/25/2024 9:08 AM EDT) Magnesium, Plasma 2.1 1.9 - 2.4 mg/dL 12/25/2024 10:01 AM EDT [facility] Blood Venous blood specimen / Unknown Venipuncture / Unknown 12/25/2024 9:08 AM EDT 12/25/2024 9:33 AM EDT us Danny Lucio MD LAB BLOOD ORDERABLES Final Re sult [facility] [address] [place] [address] * (ABNORMAL) CMP (12/25/2024 9:08 AM EDT) Glucose, Plasma 143(H) 74 - 99 mg/dL 12/25/2024 10:01 AM EDT [facility] BUN, Plasma 15 8 - 23 mg/dL 12/25/2024 10:01 AM EDT [facility] Creatinine, Plasma 0.95 0.70 - 1.20 mg/dL 12/25/2024 10:01 AM EDT [facility] BUN/Creatinine Ratio 16 12/25/2024 10:01 AM EDT [facility] Sodium, Plasma 139 136 - 145 mmol/L 12/25/2024 10:01 AM EDT [facility] Potassium, Plasma 5.2(H) 3.6 - 4.9 mmol/L 12/25/2024 10:01 AM EDT [facility] Comment:Hemolyzed, result ma y be falsely increased. Chloride, Plasma 106 97 - 107 mmol/L 12/25/2024 10:01 AM EDT [facility] CO2, Plasma 21(L) 22 - 29 mmol/L 12/25/2024 10:01 AM EDT [facility] Anion Gap 12 6 - 16 mmol/L 12/25/2024 10:01 AM EDT [facility] Total Calcium, Plasma 9.4 8.9 - 10.2 mg/dL 12/25/2024 10:01 AM EDT [facility] Total Protein 6.8 6.3 - 7.9 g/dL 12/25/2024 10:01 AM EDT [facility] Albumin, Plasma 3.9 3.5 - 5.2 g/dL 12/25/2024 10:01 AM EDT [facility] AST, Plasma 63(H) 10 - 50 U/L 12/25/2024 10:01 AM EDT [facility] Comment:Hemolyzed, result ma y be falsely increased. ALT, Plasma 131(H) 10 - 50 U/L 12/25/2024 10:01 AM EDT [facility] Comment:Hemolyzed, result ma y be falsely increased or decreased. Alkaline Phosphatase, Plasma 197(H) 40 - 115 U/L 12/25/2024 10:01 AM EDT [facility] Comment:Hemolyzed, result ma y be falsely decreased. Total Bilirubin, Plasma 2.5(H) 0.2 - 1.1 mg/dL 12/25/2024 10:01 AM EDT [facility] eGFRcr 89.4 mL/min/1.7 3m*2 12/25/2024 10:01 AM EDT [facility] Comment:Reported eGFRcr in m L/min/1.73m2 is based the CKD-EPI 2020 equation that does not use a race coefficient. Blood Venous blood specimen / Unknown Venipuncture / Unknown 12/25/2024 9:08 AM EDT 12/25/2024 9:33 AM EDT us Danny Lucio MD LAB BLOOD ORDERABLES Final Re sult [facility] [address] [place] [address] * (ABNORMAL) PT-INR (12/25/2024 9:08 AM EDT) Prothrombin Time 15.8(H) 12.0 - 14.3 sec 12/25/2024 9:51 AM EDT [facility] INR 1.3(H) 0.9 - 1.1 12/25/2024 9:51 AM EDT [facility] Blood Venous blood specimen / Unknown Venipuncture / Unknown 12/25/2024 9:08 AM EDT 12/25/2024 9:33 AM EDT Narrative [facility] - 12/25/2024 9:51 AM EDT OPTIMAL INR RANGES FOR PATIENT ON ORAL ANTICOAGULANT THERAPY Prevention of venous thromboembolism INR 2.0 to 3.0 In patients with heart disease: Atrial fibrillation INR 2.0 to 3.0 Valvular heart disease INR 2.0 to 3.0 Tissue heart valves INR 2.0 to 3.0 Mechanical prosthetic valves INR 2.5 to 3.5 Prevention of recurrent [place] INR 2.5 to 3.5 us Danny Lucio MD LAB BLOOD ORDERABLES Final Re sult [facility] [address] [place] [address] * (ABNORMAL) CBC w/diff (12/25/2024 9:08 AM EDT) WBC Count 9.76 3.70 - 10.30 10*3/uL LAB HEMATOLOGY METHOD 12/25/2024 9:35 AM EDT [facility] RBC Count 5.91 4.60 - 6.10 10*6/uL LAB HEMATOLOGY METHOD 12/25/2024 9:35 AM EDT [facility] HGB 17.3 13.7 - 17.5 g/dL LAB HEMATOLOGY METHOD 12/25/2024 9:35 AM EDT [facility] HCT 50.3 40.0 - 51.0 % LAB HEMATOLOGY METHOD 12/25/2024 9:35 AM EDT [facility] Platelet Count 216 155 - 369 10*3/uL LAB HEMATOLOGY METHOD 12/25/2024 9:35 AM EDT [facility] MCV 85 79 - 98 fL LAB HEMATOLOGY METHOD 12/25/2024 9:35 AM EDT [facility] MCH 29.3 26.0 - 32.0 pg LAB HEMATOLOGY METHOD 12/25/2024 9:35 AM EDT [facility] MCHC 34.4 30.7 - 35.5 g/dL LAB HEMATOLOGY METHOD 12/25/2024 9:35 AM EDT [facility] RDW 19.2(H) 11.5 - 14.5 % LAB HEMATOLOGY METHOD 12/25/2024 9:35 AM EDT [facility] MPV 11.1 8.8 - 12.5 fL LAB HEMATOLOGY METHOD 12/25/2024 9:35 AM EDT [facility] nRBC 0.0 <=0.0 per 100 WBCs LAB HEMATOLOGY METHOD 12/25/2024 9:35 AM EDT [facility] Differential Type Automated LAB HEMATOLOGY METHOD 12/25/2024 9:35 AM EDT [facility] Neutrophils % 80 % LAB HEMATOLOGY METHOD 12/25/2024 9:35 AM EDT [facility] Lymphocytes % 13 % LAB HEMATOLOGY METHOD 12/25/2024 9:35 AM EDT [facility] Monocytes % 6 % LAB HEMATOLOGY METHOD 12/25/2024 9:35 AM EDT [facility] Eosinophils % 1 % LAB HEMATOLOGY METHOD 12/25/2024 9:35 AM EDT [facility] Basophils % 0 % LAB HEMATOLOGY METHOD 12/25/2024 9:35 AM EDT [facility] Immature Granulocytes % 0 % LAB HEMATOLOGY METHOD 12/25/2024 9:35 AM EDT [facility] Neutrophils Absolute 7.72(H) 1.60 - 6.10 10*3/uL LAB HEMATOLOGY METHOD 12/25/2024 9:35 AM EDT [facility] Lymphocytes Absolute 1.28 1.20 - 3.90 10*3/uL LAB HEMATOLOGY METHOD 12/25/2024 9:35 AM EDT [facility] Monocytes Absolute 0.56 0.30 - 0.90 10*3/uL LAB HEMATOLOGY METHOD 12/25/2024 9:35 AM EDT [facility] Eosinophils Absolute 0.13 0.00 - 0.50 10*3/uL LAB HEMATOLOGY METHOD 12/25/2024 9:35 AM EDT [facility] Basophils Absolute 0.04 0.00 - 0.10 10*3/uL LAB HEMATOLOGY METHOD 12/25/2024 9:35 AM EDT [facility] Immature Granulocytes Absolute 0.03 0.00 - 0.06 10*3/uL LAB HEMATOLOGY METHOD 12/25/2024 9:35 AM EDT [facility] Blood Venous blood specimen / Unknown Venipuncture / Unknown 12/25/2024 9:08 AM EDT 12/25/2024 9:33 AM EDT Narrative [facility] - 12/25/2024 9:35 AM EDT Therapeutic decision making should be based on absolute values, rather than percentages. us Danny Lucio MD LAB BLOOD ORDERABLES Final Re sult [facility] [address] [place] [address] documented in this encounter Visit Diagnoses Diagnosis Malignant neoplasm of pancreas, unspecified location of malignancy (CMS/HCC)- Primary Acute pancreatitis, unspecified complication status, unspecified pancreatitis type Pancreatic mass Unspecified disease of pancreas Malignant neoplasm of pancreas, unspecified location of malignancy (CMS/HCC) Epigastric pain Abdominal pain, epigastric Nausea and vomiting, unspecified vomiting type Malignant neoplasm of body of pancreas (CMS/HCC) Malignant neoplasm of body of pancreas Elevated lipase Acute pancreatitis documented in this encounter Admitting Diagnoses Diagnosis Malignant neoplasm of pancreas, unspecified location of malignancy (CMS/HCC) documented in this encounter Administered Medications Inactive Administered Medications - up to 3 most recent administrations Medication Order MAR Action Action Date Dose Rate Site acetaminophen (Tylenol) tablet 1,000 mg 1,000 mg, Oral, Once, 1 dose, On Tue12/25/24 at 0815, STAT Given 12/25/2024 9:10 AM EDT 1,000 mg acetaminophen (Tylenol) tablet 650 mg 650 mg, Oral, Every 6 hours PRN, Starting on Tue12/25/24 at 1250, Until Tue12/26/24 at 1906, Routine, mild pain, headaches, fever Given 12/25/2024 3:22 PM EDT 650 mg enoxaparin (Lovenox) syringe 40 mg 40 mg, Subcutaneous, Daily, First dose on Tue12/25/24 at 1335, Until Discontinued, Routine Given 12/26/2024 9:54 AM EDT 40 mg Left Lower Abdomen Given 12/25/2024 3:24 PM EDT 40 mg Le ft Lower Abdomen furosemide (Lasix) tablet 40 mg 40 mg, Oral, Daily, First dose on Tue12/26/24 at 1430, Until Discontinued, Routine Given 12/26/2024 3:41 PM EDT 40 mg gabapentin (Neurontin) capsule 300 mg 300 mg, Oral, 4 times daily, First dose on Tue12/25/24 at 1400, Until Discontinued, Routine Given 12/25/2024 2:00 PM EDT 300 mg gabapentin (Neurontin) capsule 300 mg 300 mg, Oral, 3 times daily, First dose (after last modification) on Tue12/25/24 at 2100, Until Discontinued, Routine Given 12/26/2024 3:41 PM EDT 300 mg Given 12/26/2024 9:53 AM EDT 300 mg Given 12/25/2024 9:34 PM EDT 300 mg iohexol (OMNIPaque) 350 MG/ML injection 100 mL 100 mL, Intravenous, Once in imaging, 1 dose, Starting on Tue12/25/24 at 1316, Until Tue12/25/24 at 1408, Routine, Imaging Protocol Orders Given 12/25/2024 2:08 PM EDT 100 mL lactated Ringer's infusion 1,000 mL 1,000 mL, Intravenous, Once (Bolus), 1 dose, On Tue12/25/24 at 0815, STAT New Bag 12/25/2024 9:28 AM EDT 1,000 mL lactated Ringer's infusion 100 mL/hr, Intravenous, Continuous, Starting on Tue12/25/24 at 1705, Until Tue12/26/24 at 1341, Routine New Bag 12/25/2024 5:23 PM EDT 100 mL/hr 100 mL/hr LORazepam (Ativan) tablet 0.5 mg 0.5 mg, Oral, Every 6 hours PRN, Starting on Tue12/25/24 at 1233, Until Tue12/26/24 at 1906, Routine, nausea, vomiting metoprolol tartrate (Lopressor) tablet 25 mg 25 mg, Oral, 2 times daily, First dose on Tue12/25/24 at 1335, Until Discontinued, Routine Given 12/26/2024 9:53 AM EDT 25 mg Given 12/25/2024 9:34 PM EDT 25 mg Given 12/25/2024 3:22 PM EDT 25 mg ondansetron (Zofran) 4 MG/5ML solution 4 mg 4 mg, Oral, Every 6 hours PRN, Starting on Tue12/25/24 at 1233, Until Tue12/26/24 at 1906, Routine, nausea, vomiting ondansetron (Zofran) injection 4 mg 4 mg, Intravenous, Once, 1 dose, On Tue12/25/24 at 0815, STAT Given 12/25/2024 9:30 AM EDT 4 mg ondansetron (Zofran) injection 4 mg 4 mg, Intravenous, Every 6 hours PRN, Starting on Tue12/25/24 at 1233, Until Tue12/26/24 at 1906, Routine, vomiting, nausea ondansetron ODT (Zofran-ODT) disintegrating tablet 4 mg 4 mg, Oral, Every 6 hours PRN, Starting on Tue12/25/24 at 1233, Until Tue12/26/24 at 1906, Routine, nausea, vomiting oxyCODONE (Roxicodone) immediate release tablet 10 mg 10 mg, Oral, Every 4 hours PRN, Starting on Tue12/25/24 at 1247, Until Tue12/26/24 at 1906, Routine, severe pain, Breakthrough pain Given 12/26/2024 3:42 PM EDT 10 m g Given 12/26/2024 9:53 AM EDT 10 mg Given 12/25/2024 2:50 PM EDT 10 mg oxyCODONE (Roxicodone) immediate release tablet 5 mg 5 mg, Oral, Once, 1 dose, On Tue12/25/24 at 0815, STAT Given 12/25/2024 9:10 AM EDT 5 mg oxyCODONE (Roxicodone) immediate release tablet 5 mg 5 mg, Oral, Every 4 hours PRN, Starting on Tue12/25/24 at 1247, Until Tue12/26/24 at 1906, Routine, moderate pain prochlorperazine (Compazine) injection 2.5 mg 2.5 mg, Intravenous, Every 6 hours PRN, Starting on Tue12/25/24 at 1233, Until Tue12/26/24 at 1906, Routine, nausea, vomiting Given 12/25/2024 3:24 PM EDT 2. 5 mg prochlorperazine (Compazine) tablet 5 mg 5 mg, Oral, Every 6 hours PRN, Starting on Tue12/25/24 at 1233, Until Tue12/26/24 at 1906, Routine, nausea, vomiting sodium chloride 0.9 % flush 10 mL 10 mL, Intravenous, Every 12 hours, First dose on Tue12/25/24 at 1225, Until Discontinued, Routine Given 12/26/2024 3:42 PM EDT 10 mL Given 12/25/2024 3:24 PM EDT 10 mL sodium chloride 0.9 % flush 10 mL 10 mL, Intravenous, As needed, Starting on Tue12/25/24 at 1218, Until Tue12/26/24 at 1906, Routine, line care documented in this encounter Active and Recently Administered Medications Times are shown in EDT. Scheduled Medication Order 12/24/2024 12/25/2024 12/26/2024 acetaminophen (Tylenol) tablet 1,000 mg (COMPLETED) 1,000 mg, Oral, Once, 1 dose, On Tue12/25/24 at 0815, STAT 0910 (Given - Provider: Maddy Lugo RN) enoxaparin (Lovenox) syringe 40 mg 40 mg, Subcutaneous, Daily, First dose on Tue12/25/24 at 1335, Until Discontinued, Routine 1524 (Given - Provider: Maddy Lugo RN) 0954 (Given - Provider: Noah Garcia RN) furosemide (Lasix) tablet 40 mg 40 mg, Oral, Daily, First dose on Tue12/26/24 at 1430, Until Discontinued, Routine 1541 (Given - Provid er: Noah Gracia RN) gabapentin (Neurontin) capsule 300 mg (CANCELED) 300 mg, Oral, 4 times daily, First dose on Tue12/25/24 at 1400, Until Discontinued, Routine 1400 (Given - Provider: Maddy Lugo RN) gabapentin (Neurontin) capsule 300 mg 300 mg, Oral, 3 times daily, First dose (after last modification) on Tue12/25/24 at 2100, Until Discontinued, Routine 2134 (Given - Provider: Pedro Luis Evans) 0953 (Given - Provider: Noah Garcia RN)1541 (Given - Provider: Noah Garcia RN) iohexol (OMNIPaque) 350 MG/ML injection 100 mL (COMPLETED) 100 mL, Intravenous, Once in imaging, 1 dose, Starting on Tue12/25/24 at 1316, Until Tue12/25/24 at 1408, Routine, Imaging Protocol Orders 1408 (Given - Provider: Pilar Mejia) lactated Ringer's infusion 1,000 mL (COMPLETED) 1,000 mL, Intravenous, Once (Bolus), 1 dose, On Tue12/25/24 at 0815, STAT 0928 (New Bag - Provider: Maddy Lugo RN - Comment: no access)1200 (Stopped - Provider: Maddy Lugo RN) metoprolol tartrate (Lopressor) tablet 25 mg 25 mg, Oral, 2 times daily, First dose on Tue12/25/24 at 1335, Until Discontinued, Routine 1522 (Given - Provider: Maddy Lugo, RN)2134 (Given - Provider: Pedro Luis Evans) 0953 (Given - Provider: Noah Garcia, KENNETH) ondansetron (Zofran) injection 4 mg (COMPLETED) 4 mg, Intravenous, Once, 1 dose, On Tue12/25/24 at 0815, STAT 0930 (Given - Provider: Maddy Lugo RN - Comment: no access) oxyCODONE (Roxicodone) immediate release tablet 5 mg (COMPLETED) 5 mg, Oral, Once, 1 dose, On Tue12/25/24 at 0815, STAT 0910 (Given - Provider: Maddy Lugo RN) sodium chloride 0.9 % flush 10 mL(Linked Group 1) 10 mL, Intravenous, Every 12 hours, First dose on Tue12/25/24 at 1225, Until Discontinued, Routine 1524 (Given - Provider: Maddy Lugo RN) 0031 (Not Given - Provider: Pedro Luis Evans - Reason: Hold for condition: must add comment - Comment: Has IV infusion running)1542 (Given - Provider: Noah Garcia, KENNETH) Continuous Medication Order 12/24/2024 12/25/2024 12/26/2024 lactated Ringer's infusion (CANCELED) 100 mL/hr, Intravenous, Continuous, Starting on Tue12/25/24 at 1705, Until Tue12/26/24 at 1341, Routine 1723 (New Bag - Provider: Edmar Fernandez RN) 1354 (Stopped - Provider: Chen Tillman RN) PRN Medication Order 12/24/2024 12/25/2024 12/26/2024 acetaminophen (Tylenol) tablet 650 mg 650 mg, Oral, Every 6 hours PRN, Starting on Tue12/25/24 at 1250, Until Tue12/26/24 at 1906, Routine, mild pain, headaches, fever 1522 (Given - Provider: Maddy Lugo RN) LORazepam (Ativan) tablet 0.5 mg 0.5 mg, Oral, Every 6 hours PRN, Starting on Tue12/25/24 at 1233, Until Tue12/26/24 at 1906, Routine, nausea, vomiting ondansetron (Zofran) 4 MG/5ML solution 4 mg(Linked Group 2) 4 mg, Oral, Every 6 hours PRN, Starting on Tue12/25/24 at 1233, Until Tue12/26/24 at 1906, Routine, nausea, vomiting ondansetron (Zofran) injection 4 mg(Linked Group 2) 4 mg, Intravenous, Every 6 hours PRN, Starting on Tue12/25/24 at 1233, Until Tue12/26/24 at 1906, Routine, vomiting, nausea ondansetron ODT (Zofran-ODT) disintegrating tablet 4 mg(Linked Group 2) 4 mg, Oral, Every 6 hours PRN, Starting on Tue12/25/24 at 1233, Until Tue12/26/24 at 1906, Routine, nausea, vomiting oxyCODONE (Roxicodone) immediate release tablet 10 mg 10 mg, Oral, Every 4 hours PRN, Starting on Tue12/25/24 at 1247, Until Tue12/26/24 at 1906, Routine, severe pain, Breakthrough pain 1450 (Given - Provider: Maddy uLgo RN) 0953 (Given - Provider: Noah Garcia RN - Comment: Pt recieving ECHO, delayed pain med administration)1542 (Given - Provider: Noah Garcia RN) oxyCODONE (Roxicodone) immediate release tablet 5 mg 5 mg, Oral, Every 4 hours PRN, Starting on Tue12/25/24 at 1247, Until Tue12/26/24 at 1906, Routine, moderate pain prochlorperazine (Compazine) injection 2.5 mg(Linked Group 3) 2.5 mg, Intravenous, Every 6 hours PRN, Starting on Tue12/25/24 at 1233, Until Tue12/26/24 at 1906, Routine, nausea, vomiting 1524 (Given - Provider: Maddy Lugo RN) prochlorperazine (Compazine) tablet 5 mg(Linked Group 3) 5 mg, Oral, Every 6 hours PRN, Starting on Tue12/25/24 at 1233, Until Tue12/26/24 at 1906, Routine, nausea, vomiting 1524 (See Alternative - Provider: Maddy Lugo RN) senna-docusate (Shila-Colace) 8.6-50 MG per tablet 1 tablet 1 tablet, Oral, 2 times daily PRN, Starting on Tue12/25/24 at 1218, Until Tue12/26/24 at 1906, constipation sodium chloride 0.9 % flush 10 mL(Linked Group 1) 10 mL, Intravenous, As needed, Starting on Tue12/25/24 at 1218, Until Tue12/26/24 at 1906, Routine, line care Linked Groups Order Group 1: Insert peripheral IV (CANCELED) Once, On Tue12/25/24 at 1219, For 1 occurrence And Saline lock IV (CANCELED) Once, On Tue12/25/24 at 1219, For 1 occurrence And sodium chloride 0.9 % flush 10 mLJump to med 10 mL, Intravenous, Every 12 hours, First dose on Tue12/25/24 at 1225, Until Discontinued, Routine And sodium chloride 0.9 % flush 10 mLJump to med 10 mL, Intravenous, As needed, Starting on Tue12/25/24 at 1218, Until Tue12/26/24 at 1906, Routine, line care Group 2: ondansetron ODT (Zofran-ODT) disintegrating tablet 4 mgJump to med 4 mg, Oral, Every 6 hours PRN, Starting on Tue12/25/24 at 1233, Until Tue12/26/24 at 1906, Routine, nausea, vomiting Or ondansetron (Zofran) injection 4 mgJump to med 4 mg, Intravenous, Every 6 hours PRN, Starting on Tue12/25/24 at 1233, Until Tue12/26/24 at 1906, Routine, vomiting, nausea Or ondansetron (Zofran) 4 MG/5ML solution 4 mgJump to med 4 mg, Oral, Every 6 hours PRN, Starting on Tue12/25/24 at 1233, Until Tue12/26/24 at 1906, Routine, nausea, vomiting Group 3: prochlorperazine (Compazine) tablet 5 mgJump to med 5 mg, Oral, Every 6 hours PRN, Starting on Tue12/25/24 at 1233, Until Tue12/26/24 at 1906, Routine, nausea, vomiting Or prochlorperazine (Compazine) suppository 25 mg (CANCELED) 25 mg, Rectal, Every 12 hours PRN, Starting on Tue12/25/24 at 1233, Until Tue12/26/24 at 0928, Routine, nausea, vomiting Or prochlorperazine (Compazine) injection 2.5 mgJump to med 2.5 mg, Intravenous, Every 6 hours PRN, Starting on Tue12/25/24 at 1233, Until Tue12/26/24 at 1906, Routine, nausea, vomiting Or prochlorperazine (Compazine) injection 5 mg (CANCELED) 5 mg, Intramuscular, Every 6 hours PRN, Starting on Tue12/25/24 at 1233, Until Tue12/26/24 at 0928, Routine, nausea, vomiting documented in this encounter Additional Health Concerns Assessment Noted Time A fall risk assessment has been complete d for the patient 03/10/2022 9:47 AM EDT A Body Mass Index follow-up plan has been documented for the patient 12/26/2024 4:50 PM EDT documented as of this encounter Care Teams [employer] Relationship Specialty Start Date End Date Raimundo Chirinos MD [address] [place] [address] PCP - General 11/18/21 Moiz Mcnally MD [address] [facility] [address] [place] [address] Surgeon Neurosurgery 11/18/21 Bridgett Gonzales, TRAM OPERATOR [address] [place] [address] Nurse Practitioner Neurosurgery 01/07/22 Purvi Foy, RN [facility] Registered Nurse 12/26/24 12/26/24 documented as of this encounter
--- OUTSIDE RECORDS SUMMARY | 2025-01-01 17:29 | XMS_ITS | Encounter Summary ---
Author Organization Healthcare Address [address] [place] [address] Care Team Providers [employer] Name Role Phone Raimundo Chirinos MD Primary Care Provider [phone] Moiz Mcnally MD Unavailable [phone] Bridgett Gonzales MEDICAL DIRECTOR/HEAD TEAM PHYSICIAN Unavailable [phone] Ynes Rocha EQUIPMENT SERVICE ASSOCIATE Unavailable Unavailab Terrance Hdez Unavailable Unavailable Reason for Referral * Consultation (Routine) - Authorized Specialty Diagnoses / Procedures Referred By Pola black Referred To Contact Gastroenterology Diagnoses Epigastric pain Biliary obstruction Pancreatic mass Ciro Forbes MD [address] [place] [address] Phone: tel: fax: [facility] [address] [place] [address] Phone: tel: fax: Referral ID Status Reason Start Date Expiration Date Visits Requested Visits Authorized [id number] Authorized Specialty Services Required 01/03/2025 07/05/2026 1 1 * Consultation (Routine) - Authorized Specialty Diagnoses / Procedures Referred By Pola black Referred To Contact Family Medicine Diagnoses Epigastric pain Biliary obstruction Pancreatic mass Ciro Forbes MD [address] [place] [address] Phone: tel: fax: Referral ID Status Reason Start Date Expiration Date V isits Requested Visits Authorized [id number] Authorized 01/03/2025 07/05/2026 1 1 * Imaging (Routine) - Pending Review Specialty Diagnoses / Procedures Referred By Contac t Referred To Contact Gastroenterology Diagnoses Pancreatic mass Procedures ERCP Ciro Forbes MD [address] [place] [address] Phone: tel: fax: Referral ID Status Reason Start Date Expiration Date Visits Requested Visits Authorized [id number] Pending Review Specialty Services Required 01/03/2025 07/05/2026 1 1 Reason for Visit * Reason Comments Abdominal Pain * Auth/Cert (Routine) Specialty Diagnoses / Procedures Referred By Pola black Referred To Contact Diagnoses Biliary obstruction Ciro Forbes MD [address] [place] [address] Phone: tel: fax: [facility] [address] [place] [phone] Phone: tel: Referral ID Status Reason Start Date Expiration Date Visits Re quested Visits Authorized [id number] 1 1 Encounter Details Date Type Department Care Team (Latest Contact Info) Description 01/01/2025 5:29 PM EDT - 01/03/2025 3:53 PM EDT Hospital Encounter [facility] In[facility] [address] [place] [address] Alonso Walton MD [address] [place] [address] Cristo Foley DO [address] [place] [id number] Ciro Forbes MD [address] [place] [address] Biliary obstruction (Primary Dx); Epigastric pain; Pancreatic mass Discharge Disposition: Home or Self Care Social [...] the money to buy more. Never true 01/05/20 25 Within the past 12 months, t he food you bought just didn't last and you didn't have money to get more. Never true 01/04/2025 PRAPARE - Transportation Answer Date Re corded In the past 12 months, has l ack of transportation kept you from medical appointments or from getting medications? No 12/25 In the past 12 months, has l ack of transportation kept you from meetings, work, or from getting things needed for daily living? No 01/04/2025 Housing Stability Vital Sign Answer Uriel e Recorded In the last 12 months, was t here a time when you were not able to pay the mortgage or rent on time? No 01/04/2025 In the past 12 months, how m any times have you moved where you were living? 0 01/04/2025 At any time in the past 12 m [facility], were you homeless or living in a custodial (including now)? 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 0 12/05/2024 CAGE Questionnaire Score 0 025 Utilities Answer Date Recorded In the past 12 months has e [employer], gas, oil, or water [employer] threatened to shut off services in your home? No 01/04/2025 Sex and Gender Information Value Date Recorded Sex Assigned at Male 01/29/2025 3:48 PM EDT Legal Sex Male 6:38 PM EDT Gender Identity Not on file Sexual Orientation Not on file documented as of this encounter Last Filed Vital Signs Vital Sign Reading Time Taken Comments Blood Pressure 134/85 01/03/2025 11:45 AM EDT Pulse 84 01/03/2025 11:45 AM EDT Temperature 36.6 C (97.8 F) 01/03/2025 11:45 AM EDT Respiratory Rate 18 01/03/2025 11:45 AM EDT Oxygen Saturation 96% 01/03/2025 11:45 AM EDT Inhaled Oxygen Concentration - - Weight 68 kg (150 lb) 01/02/2025 11:00 PM EDT Height 170.2 cm (5' 7 ) 01/02/2025 11:00 PM EDT Body Mass Index 23.49 01/02/2025 11:00 PM EDT documented in this encounter Functional Status * Calculated C-SSRS Risk Score (Lifetime/Recent) Answer Date of Assessment Author No Risk Indicated 01/02/2025 8:00 PM EDT Sammy Macedo RN * Question Answer Date of Assessment Author 1. Wish to be (Past 1 Month) No 01/02/2025 8:00 PM EDT Marcelle Sampson RN 2. Non-Specific Active Suicidal Thoughts (Past 1 Month) No 01/02/2025 8:00 PM EDT Marcelle Sampson RN 6. Suicidal Behavior (Lifetime) No 01/02/2025 8:00 PM EDT Marcelle Sampson RN documented as of this encounter Medications at Time of Discharge furosemide (Lasix) 40 MG tablet Take 1 tablet by mouth daily as needed. gabapentin (Neurontin) 300 MG capsule Take 1 capsule by mouth 4 times a day. lisinopril 2.5 MG tablet Take 1 tablet by mouth daily. metoprolol succinate XL (Toprol-XL) 25 MG 24 [...] or vomiting. 90 tablet 12/25/2024 oxyCODONE (Roxicodone) 10 MG immediate release tablet Take 1 tablet by mouth every 4 hours as needed for moderate pain or severe pain. 24 tablet 01/03/2025 potassium chloride CR (Klor-Con M20) 20 MEQ ER tablet Take 1 tablet by mouth daily. Do not crush or chew. rivaroxaban (Xarelto) 20 MG tablet Take 1 tablet by mouth 1 time each day with dinner. Take with food. 30 tablet 1 01/03/2025 senna-docusate sodium (Senokot-S) 8.6-50 MG tablet Take 1 tablet by mouth 2 times a day as needed for constipation. 60 tablet 2 12/07/2024 aspirin 81 MG EC tablet Take 1 tablet by mouth daily. 30 tablet 12/26/2024 5 documented as of this encounter Miscellaneous Notes * Jennifer Godfrey, KENNETH - 01/03/2025 2:45 PM EDT Images from the original note were not included. [id number] Rivaroxaban IMPORTANT WARNING: If you have atrial fibrillation (a condition in which the heart beats irregularly, increasing the chance of clots forming in the body, and possibly causing strokes) and are taking rivaroxaban to helpprevent strokes or serious blood clots, you are at a higher risk of having a stroke after you stop taking this medication. Do not stop taking rivaroxaban without talking to your doctor. Continue to take rivaroxaban even if you feel well. Be sure to refill your prescription before you run out of medication so that you will not miss any doses of rivaroxaban. If you need to stop taking rivaroxaban, your doctor may prescribe another anticoagulant (''blood thinner'') to help prevent a blood clot from forming and causing you to have a stroke. If you have epidural or spinal anesthesia or a spinal puncture while taking a 'blood thinner' such as rivaroxaban, you are at risk of having a blood clot form in or around your spine that could causeyou to become paralyzed. Tell your doctor if you have an epidural catheter that is left in your body or have or have ever had repeated epidural or spinal punctures, spinal deformity, or spinal surgery. Tell your doctor and pharmacist if you are taking medications that may cause bleeding including anticoagulants (blood thinners) such as warfarin (Jantoven), heparin, or other medications to treat or prevent blood clots and aspirin and other nonsteroidal anti-inflammatory drugs (NSAIDs) such as ibu profen (Advil, Motrin, others), indomethacin (Indocin), ketoprofen, and naproxen (Aleve, Anaprox, others). If you experience any of the following symptoms, call your doctor immediately: back pain, muscle weakness (especially in your legs and feet), numbness or tingling (especially in your legs), loss of control of your bowels or bladder, or inability to move your legs. Talk to your doctor about the risk of taking rivaroxaban. Your doctor or pharmacist will give you the manager employee relations's patient information sheet (Medication Guide) when you begin treatment with rivaroxaban and each time you refill your prescription. Read the information carefully and ask your doctor or pharmacist if you have any questions. You can also visit the Food and Drug Administration (FDA) website (https://www.fda.gov/downloads/Drugs/DrugSafety/KGJ434827.pdf) or the manager employee relations's website to obtain the Medication Guide. WHY is this medicine prescribed? Rivaroxaban is used to treat deep vein thrombosis (DVT; a blood clot, usually in the leg) and pulmonary embolism (PE; a blood clot in the lung) in adults. Rivaroxaban is also used to prevent DVT and PE from happening again after initial treatment is completed in adults. It is also used to help prevent strokes or serious blood clots in adults who have atrial fibrillation (a condition in which the heart beats irregularly, increasing the chance of clots forming in the body, and possibly causing strokes) that is not caused by heart valve disease. Rivaroxaban is also used to prevent DVT and PE in adults who are having hip replacement or knee replacement surgery or in people who are hospitalized for serious illnesses and are at risk of developing a clot due to decreased ability to move around or other risk factors. It is also used along with aspirin to lower the risk of a heart attack, stroke, or in adults with coronary artery disease (narrowing of the blood vessels that supply blood t o the heart) or peripheral arterial disease (poor circulation in the blood vessels that supply blood to the arms and legs). Rivaroxaban is also used to treat and prevent DVT and PE from happening again in children and certain infants who have received at least 5 days of initial anticoagulation (blood thinner) treatment. It is also used to prevent DVT and PE after heart surgery in children 2 yearsof age or older who have congenital heart disease (abnormality in the heart that develops before ). Rivaroxaban is in a class of medications called factor Xa inhibitors. It works by blocking theaction of a certain natural substance that helps blood clots to form. HOW should this medicine be used? Rivaroxaban comes as a tablet and a suspension (liquid) to take by mouth. When rivaroxaban is used to treat DVT or PE in adults, it is usually taken with food twice daily for 21 days, then once dailywith food. When rivaroxaban is used to prevent DVT or PE in adults, it is usually taken once daily with or without food after at least 6 months of anticoagulation (blood thinner) treatment. When rivar oxaban is used to prevent a stroke in those who have atrial fibrillation, it is usually taken once daily with the evening meal. When rivaroxaban is taken to prevent DVT and PE after hip or knee replacement surgery, it is usually taken with or without food once daily. The first dose should be taken at least 6 to 10 hours after surgery. Rivaroxaban is usually taken for 35 days after a hip replacement surgery and for 12 days after knee replacement surgery. When rivaroxaban is taken to prevent DVT and PE in adults who are hospitalized for serious illnesses and are at risk of developing a clot dueto decreased ability to move around, it is usually taken with or without food once daily starting wh en you are in the hospital and then continuing for a total of 31 to 39 days. When rivaroxaban is taken along with aspirin in adults with coronary artery disease or peripheral arterial disease, it is usually taken twice daily with or without food. When rivaroxaban is used in children and infants to treat or prevent DVT or PE, it is usually given 1 to 3 times a day with food after at least 5 days of anticoagulation (blood thinner) treatment. When rivaroxaban is taken in children 2 years of age orolder who have congenital heart disease, it is usually given 1 to 3 times a day with or without food after heart surgery. Take rivaroxaban at around the same time(s) every day. Follow the directions on your prescription label carefully, and ask your doctor or pharmacist to explain any part you do not understand. Take rivaroxaban exactly as directed. Do not take more or less of it or take it more often than prescribed by your doctor. For adults, if you are unable to swallow the tablets, you can crush them and mix with applesauce. Swallow the mixture right after you prepare it. Rivaroxaban can also be given in certain types of feeding tubes. Ask your doctor if you should take this medication in your feeding tube. Follow your doctor's directions carefully. For children taking rivaroxaban tablets, swallow the tablets whole; do not split them. If you or your child vomits or spits up within 30 minutes of taking a dose of rivaroxaban oral suspension, take another full dose as soon as possible after the vomiting episode and then take your next dose at the regularly scheduled time. To measure rivaroxaban oral suspension, follow these steps: ?? Use the oral syringe that came with the medication for measuring the liquid. Do not use a household spoon to measure your dose. Household teaspoons are not accurate measuring devices, and you may receive too much medication or not enough medication if you measure your dose with a household teaspoon. ?? Shake the bottle gently for 10 seconds before use. If there are remaining granules at the bottomof the bottle, shake gently again for another 10 seconds. Do not shake the bottle to avoid foaming. ?? Remove the bottle cap by pushing down on the cap, then turn it counterclockwise (to the left). Do not remove the adaptor from the top of the bottle. ?? Push all the air from the oral syringe into the bottle by pushing down on the plunger. Then insert the open tip of the oral syringe into the adaptor. ?? While holding the oral syringe in place, carefully turn the bottle upside down. Draw some of themedication out of the bottle into the oral syringe by pulling back on the plunger. Be careful not to pull the plunger all the way out. ?? You will see a small amount of air near the end of the plunger in the oral syringe. Push on the plunger so the medication goes back into the bottle and the air disappears. Pull back on the plungerto draw your correct medication dose into the oral syringe. ?? While still holding the oral syringe in the bottle, carefully turn the bottle upwards so the syringe is on top. Remove the oral syringe from the bottle neck adaptor without pushing on the plunger.Take the medication right after you draw it into the oral syringe. ?? Place the open tip of the oral syringe into one side of your child's mouth and push on the plunger slowly as the liquid goes into your child's mouth; have your child swallow the medication slowly as it goes into their mouth. ?? If your dose is more than 5 mL, you will need to use the same syringe more than one time and youwill need to repeat steps 3 through 7. ?? Leave the adaptor in the bottle. Place the cap back on the bottle and turn it clockwise (to the right) to tighten it. ?? Rinse the oral syringe with clean tap water and allow it to air dry after each use. Continue to take rivaroxaban even if you feel well. Do not stop taking rivaroxaban without talking to your doctor. If you stop taking rivaroxaban, your risk of a blood clot may increase. Are there OTHER USES for this medicine? This medication may be prescribed for other uses; ask your doctor or pharmacist for more information. What SPECIAL PRECAUTIONS should I follow? Before taking rivaroxaban, ?? tell your doctor and pharmacist if you are allergic to rivaroxaban, any other medications, or any of the ingredients in rivaroxaban tablets. Ask your pharmacist for a list of the ingredients. ?? tell your doctor and pharmacist what other prescription and nonprescription medications, vitamins, and nutritional supplements you are taking or plan to take. Your doctor may need to change the doses of your medications or monitor you carefully for side effects. ?? tell your doctor what herbal products you are taking, especially Kekaha's wort. ?? tell your doctor if you have an artificial heart valve or recently noticed any unusual bruising or bleeding. Your doctor will probably tell you not to take rivaroxaban. ?? tell your doctor if you have or have ever had any type of bleeding problem, antiphospholipid syndrome (APS; a condition that causes blood clots), bleeding or an ulcer in your stomach or intestine,or kidney or liver disease. ?? tell your doctor if you are , plan to become , or are . If you become while taking rivaroxaban, call your doctor. ?? talk to your doctor about the risks and benefits of taking rivaroxaban if you are 75 years of age or older. ?? if you are having surgery, including dental surgery, tell the doctor or dentist that you are taking rivaroxaban. Your doctor may tell you to stop taking rivaroxaban before the surgery or procedure. Your doctor will tell you when you should start taking rivaroxaban again after your surgery. What SPECIAL DIETARY instructions should I follow? Unless your doctor tells you otherwise, continue your normal diet. What should I do IF I FORGET to take a dose? Adults: ?? If you take rivaroxaban once a day, take the missed dose as soon as you remember it on that day.Resume your regular dosing schedule the next day. ?? If you take rivaroxaban twice a day for the treatment of a DVT or PE, take the missed dose as soon as you remember it on that day. You may take 2 doses at the same time to make up for the missed dose. Resume your regular dosing schedule on the next day. ?? If you have CAD or PAD and take rivaroxaban twice a day to reduce the risk of DVT and PE and miss a dose, just continue your regular dosing schedule. Do not take a double dose to make up for a missed one. Infants and children: ?? If you take rivaroxaban once a day, take the missed dose as soon as you remember it on that day.Resume your regular dosing schedule the next day. Do not take a double dose to make up for a missedone. ?? If you take rivaroxaban twice a day, take the missed morning dose as soon as you remember it on that day. You may take 2 doses at the same time in the evening to make up for the missed morning dose. Resume your regular dosing schedule on the next day ?? If you take rivaroxaban three times a day and miss a dose, skip the missed dose and continue your regular dosing schedule. Do not take a double dose to make up for a missed one. What SIDE EFFECTS can this medicine cause? Some side effects can be serious. If you experience any of these symptoms or those listed in the IMPORTANT WARNING section, call your doctor immediately: ?? bloody, black, or tarry stools ?? pink, or brown urine ?? coughing up or vomiting blood or material that looks like coffee grounds ?? frequent nosebleeds ?? bleeding from your gums ?? heavy menstrual bleeding ?? weakness ?? tiredness ?? headache ?? dizziness or fainting ?? blurred vision ?? pain in arm or leg ?? rash ?? itching ?? difficulty breathing or swallowing ?? hives ?? pain or swelling at wound sites ?? decreased urination ?? swelling in your legs, feet, or ankles Rivaroxaban prevents blood from clotting normally so it may take longer than usual for you to stop bleeding if you are cut or injured. This medication may also cause you to bruise or bleed more easily. Call your doctor right away if bleeding or bruising is unusual. Rivaroxaban may cause other side effects. Call your doctor if you have any unusual problems while taking this medication. If you experience a serious side effect, you or your doctor may send a report to the Food and Drug Administration's (FDA) MedWatch Adverse Event Reporting program online (https://www.fda.gov/Safety/MedWatch) or by phone ( ). What should I know about STORAGE and DISPOSAL of this medication? Keep this medication in the container it came in, tightly closed, and out of reach of children. Store it at room temperature and away from excess heat and moisture (not in the bathroom). Keep all medication out of sight and reach of children as many containers are not child-resistant. Always lock safety caps. Place the medication in a safe location - one that is up and away and out of their sight and reach. https://www.upandaway.org Dispose of unneeded medications in a way so that pets, children, and other people cannot take them.Do not flush this medication down the toilet. Use a medicine take-back program. Talk to your pharmacist about take-back programs in your community. Visit the FDA's Safe Disposal of Medicines website h ttps://goo.gl/c4Rm4p for more information. What should I do in case of OVERDOSE? In case of overdose, call the poison control helpline at . Information is also available online at https://www.poisonhelp.org/help. If the victim has collapsed, had a seizure, has trouble breathing, or can't be awakened, immediately call emergency services at 081. Symptoms of overdose may include the following: ?? unusual bleeding or bruising ?? bloody, black, or tarry stools ?? blood in urine ?? coughing up or vomiting blood or material that looks like coffee grounds What OTHER INFORMATION should I know? Keep all appointments with your doctor and the laboratory. Your doctor may order certain lab tests to check your body's response to rivaroxaban. Do not let anyone else take your medication. Your prescription is probably not refillable. Keep a written list of all of the prescription and nonprescription (ybfb-hrh-yrsxrwn) medicines, vitamins, minerals, and dietary supplements you are taking. Bring this list with you each time you visit a doctor or if you are admitted to the hospital. You should carry the list with you in case of yoly rgencies. Brand Name(s): Xarelto?? This report on medications is for your information only, and is not considered individual patient advice. Because of the changing nature of drug information, please consult your physician or pharmacist about specific clinical use. The [place] [employer] represents that the information provided hereunder was formulated with a reasonable standard of care, and in conformity with professional standards in the field. The [place] [employer] makes no representations or warranties, express or implied, including, but not limited to, any implied warranty of merchantability and/or fitness for a particular purpose, with respect to such information and specifically disclaims all such warranties. Users are advised that decisions regarding drug therapy are complex medical decisions requiring the independent, informed decision of an appropriate health foster care case manager, and the information is provided for informational purposes only. The entire monograph for a drug should be reviewed for a thorough understanding of the drug's actions, uses and side effects. The [place] [employer] does not endorse or recommend the use of any drug.The information is not a substitute for medical care. AHFS?? Patient Medication Information?. ?? Copyright, 2023. The [place]??, [address], [address], [place], [place]. All Rights Reserved. Duplication for commercial use must be authorized by [facility]. Selected Revisions: October 09, 2022. AHFS?? Patient Medication Information?. ?? Copyright, 2024 * [facility] - Jennifer Olivera RN - 01/03/2025 2:45 PM EDT Images from the original note were not included. 1087 Oxycodone Oral Tablet, Immediate Release Brand Names: Oxaydo, Roxicodone What is this medicine? Oxycodone (yy-e-BOG-done) is an opioid pain reliever. It is used to treat moderate to severe pain. What should I tell my health care provider before I take this medicine? They need to know if you have any of these conditions: ?? [place]'s disease ?? Brain tumor or head injury ?? Personal or family history of drug abuse or addiction ?? Heart disease ?? Frequent alcohol use ?? Kidney disease ?? Liver disease ?? Lung disease, asthma, or breathing problems ?? Depression, anxiety, or other psychiatric disease ?? Allergy or unusual reaction to oxycodone, acetaminophen or other pain relievers ?? , trying to get , or How should I use this medicine? Take this medicine as prescribed by your doctor, and follow the directions on the prescription label. ?? Take this medicine as prescribed by your doctor. Follow the directions on the prescription label. ?? Do not take this medicine more often than directed. ?? This medicine should be taken with a full glass of water. ?? If it upsets your stomach, you may take it with food. You do not have to take this medicine withfood. ?? Do not crush, cut, chew, lick, wet, soak, or otherwise manipulate a tablet before taking. ?? Do not share this medicine with others. This medicine is only for you. ?? The pharmacy will give you a special medication guide each time you picking supervisor this medicine. ?? Overdosage: Taking too much of this medicine can be deadly. Your doctor may prescribe another medicine with this medicine to treat an accidental overdose. If you think you have taken too much of this medicine, call 911 immediately. What if I miss a dose? If you miss a dose, you may take it as soon as you remember. If it is almost time for your next dose, take only that dose. Do not take double or extra doses. What may interact with this medicine? ?? Alcohol ?? Medicines for sleep, depression, anxiety, or psychiatric diseases ?? Seizure medicines like gabapentin, pregabalin, phenytoin, or phenobarbital ?? Other pain medicines like tramadol, hydrocodone, fentanyl, or morphine ?? Muscle relaxers ?? Certain nausea medicines like chlorpromazine or promethazine ?? Cannabinoids like droperidol ?? Certain antibiotics like erythromycin, clarithromycin, rifampin, ritonavir, voriconazole, or ketoconazole ?? Allergy medicines like diphenhydramine This list may not describe all possible interactions. Give your health care provider a list of all the medicines, herbs, non-prescription drugs, or dietary supplements you use. Also tell them if you smoke, drink alcohol, or use illegal drugs. Some items may interact with your medicine. What should I watch for while using this medicine? ?? Before you start taking this medicine, talk with your doctor about how long you should be on this medicine. You should also talk to your doctor about other things you can do to treat pain, including other medicines or non-drug treatments like meditation or acupuncture. While taking this medicine, tell your doctor if your pain does not go away or gets worse or if you have a new or different type of pain. ?? It is possible you could become dependent on this medicine. The risk of dependence increases thelonger you are on the medicine. Dependence is not addiction; however, if you have a personal or family history of addiction, you are at higher risk for becoming addicted to this medicine. Talk to your doctor if you are worried about dependence or addiction. ?? If you take this medicine for a long time and suddenly stop taking this medicine, you may withdraw from this medicine. Withdrawal from this medicine may cause sweating, pain, diarrhea, anxiety, tremor, and other symptoms. Stopping the medicine slowly can reduce withdrawal symptoms. ?? This medicine may cause dizziness or drowsiness, especially when you change doses or first startthe medicine. Do not drive, use machinery, or do anything dangerous until you know how your body reacts to this medicine. ?? This medicine causes constipation. Unless your doctor tells you not to, you should take a stool softener while on this medicine. Tell your doctor if you have not had a bowel movement in 3 or more days while on this medicine. ?? This medicine can also cause dry mouth. Drinking water, chewing gum, or sucking on hard candy can help. It is important to keep regular dentist appointments. What side effects may I notice from receiving this medicine? Side effects that you should report to your doctor or health foster care case manager as soon as possible: ?? allergic reactions like skin rash, itching or hives, swelling of the face, lips, or tongue ?? breathing problems ?? confusion ?? craving for the medicine or withdrawal symptoms with a missed dose ?? feeling faint or lightheaded, falls ?? trouble passing urine or change in the amount of urine ?? unusually weak or tired Side effects that usually do not require medical attention (report to your doctor or health foster care case manager if they continue or are bothersome): ?? constipation ?? dry mouth ?? itching ?? nausea, vomiting ?? upset stomach This list may not describe all possible side effects. Call your doctor for medical advice about side effects. You may report side effects to FDA at 3-084-DOF-2599. Where should I keep my medicine? This medicine should be kept in a locked cabinet away from children and protected from theft. This medicine can be abused. Do not share this medicine with anyone. Selling or giving away this medicineis against the law. Store at room temperature (60-80??F) in a dry place that is protected from light. Do not save unused medicine that is no longer needed. Unused medicine should be taken to a proper disposal location. To find a disposal location, visit [employer]/[place]. If you cannot take unused medicine to a proper location, you can mix the medicine with coffee grounds or aiden litter and dispose of in the normal trash. Your doctor may also give you a special disposal pouch for this medicine. You can also flush the medicine down the toilet. * [facility] - Jennifer Olivera RN - 01/03/2025 2:45 PM EDT Images from the original note were not included. [id number] Abdominal Pain Abdominal pain means pain in the stomach or belly area. Everyone has this kind of pain from time totime. In many cases, it goes away on its own. Some types of abdominal pain can be from a serious problem. One example is appendicitis. So it?s important to know when to get help. Causes of abdominal pain There are many causes of abdominal pain. Common causes in adults include: ?? Constipation, diarrhea, or gas ?? Stomach and intestine inflammation from a virus or bacteria (gastroenteritis) ?? Stomach acid flowing back up into the esophagus (acid reflux) ?? Severe acid reflux, called gastroesophageal reflux disease (GERD) ?? A sore in the lining of the stomach or small intestine (peptic ulcer) ?? Inflammation of the gallbladder, liver, or pancreas ?? Gallstones or kidney stones ?? Appendicitis ?? Intestinal blockage ?? An internal organ pushing through a muscle or other tissue (hernia) ?? Urinary tract infections ?? Menstrual cramps ?? Fibroids in the uterus ?? Ovarian cysts ?? Pelvic inflammatory disease in women ?? Endometriosis ?? Crohn's disease ?? Ulcerative colitis ?? Irritable bowel syndrome Diagnosing the cause of abdominal pain Your healthcare provider will give you a physical exam. This is to help find the cause of your pain. If needed, you'll have tests. Belly pain has many possible causes. So it may take a little time tofind the reason for your pain. Give details about the type of pain you feel. Tell your healthcare provider if it's sharp or dull. Tell them where and when you feel the pain. Tell them what makes it better or worse. And tell them if you have other symptoms such as: ?? Fever ?? Tiredness ?? Upset stomach (nausea) ?? Vomiting ?? Changes in bathroom habits ?? Blood in the stool or black, tarry stool ?? Unexpected weight loss Tell your healthcare provider: ?? If you have a family history of stomach or intestinal problems or cancer ?? About your alcohol use and any illegal drug use ?? All medicines you take, both prescription and synk-lft-afmjigh ?? What vitamins, herbs, and other supplements you take Treating abdominal pain Some causes of pain need emergency medical care right away. These include appendicitis or a bowel blockage. Other problems can be treated with rest, fluids, or medicines. Your healthcare provider cangive you instructions. You may need treatment or self-care based on what's causing your pain. If you have vomiting or diarrhea, sip water or other clear fluids. When you're ready to eat solid foods again, start lightly. Eat small amounts of rfuk-ah-wgxiie, low-fat foods. These include applesauce, toast, or crackers. Call 911 Call 911 right away if you: ?? Can?t pass stool and are vomiting ?? Are vomiting blood ?? Have bloody diarrhea or black, tarry diarrhea ?? Have chest, neck, or shoulder pain ?? Feel like you might pass out (faint) ?? Have pain in your shoulder blades and nausea ?? Have sudden, severe belly pain ?? Have new, severe pain unlike any you've felt before ?? Have a belly that is rigid, hard, and hurts to touch When to call the healthcare provider Call your healthcare provider or seek medical care right away if you have any of these: ?? Pain that's worse or not getting better ?? Bloating that's worse or not getting better ?? Diarrhea that's worse or not getting better ?? Fever of 100.4??F (38??C) or higher, or as advised ?? Weight loss for no reason ?? Continued lack of appetite ?? Blood in your stool How to prevent abdominal pain Here are some tips to help prevent abdominal pain: ?? Eat smaller amounts of food at each meal. >Don't eat greasy, fried, or other high-fat foods. ?? Don't eat foods that give you gas. ?? Exercise regularly. ?? Drink plenty of fluids. To help prevent GERD symptoms: ?? Quit smoking. ?? Reduce alcohol and foods that increase stomach acid. ?? Don't use aspirin or nonsteroidal anti-inflammatory drugs (NSAIDs). ?? Lose excess weight. ?? Finish eating at least 2 hours before you go to bed or lie down. ?? Raise the head of your bed. Last Reviewed Date: 2023 00:00:00 ?? 6012-1221 [employer]. All rights reserved. This information is not intended as a substitute for professional medical care. Always follow your healthcare professional's instructions. * Discharge Summary - Gaby Carmona - 01/03/2025 2:32 PM EDT Hospitalization Admit Date/Time: 01/01/2025 5:29 PM Admitting Attending: Ciro Forbes Discharge Date: 01/03/25 Discharge Attending Physician: Ciro Forbes MD PCP name and Address: Raimundo Chirinos MD [address] [place] [address] [address] / [place] [address] Referring provider name and address: No referring provider defined for this encounter. Chief Concern, Brief History of Present Illness, and Hospital Course 64 y.o. male with PMH of severe CAD, permanent atrial fibrillation not on anti- coagulation, and newly diagnosed pancreatic adenocarcinoma admitted for biliary tract obstruction 2/2 newly diagnosed pancreatic adenocarcinoma. Patient was recently admitted, and discharged 12/26/2024. At outpatient follow up appointment found to have transaminitis of ALT 308, AST 210, and hyperbilirubinemia of 8.8 (1.8on discharge 12/26). Additionally, patient described diffuse abdominal pain and nausea with poor PO intake. PCP recommended to present to ED and was, ultimately, admitted to hospital medicine. Problems addressed during this admission: #Hyperbilirubinemia and #Biliary tract obstruction both 2/2 #Pancreatic adenocarcinoma - prior admission 12/25: surgical oncology recommended nutrition optimization via NG feeding and surgical intervention. Patient did not wish to pursue. GI attempted ERCP, was unable to visualize ampulla. - CT abdomen and pelvis with unchanged biliary dilatation and mild proximal pancreatic duct dilatation. - Patient was started on zosyn due to concern for cholangitis - GI was consulted 01/02 and proceeded with ERCP with stent intervention of common hepatic duct and pancreatic duct. - Surgical Oncology was consulted 01/03 and patient politely declined Whipple procedure - Patient was hemodynamically stable with downtrending transaminases and total bilirubin. - Patient was instructed to return to emergency room with any worsening abdominal pain #HFrEF #severe CAD #Permanent atrial fibrillation, not medically optimized - CHADs-VASC score 2 - TTE EF 15-20%, moderate to severe MR, RVSP mildly elevated - 01/02, held lasix 40, lisinopril 2.5 due to concern for cholangitis - Patient will resume GDMT upon discharge, recommend PCP/cardiology attempt MRA and SGLT2 initiation outpatient - Per pharmacy, patient has not picked up previous xarelto prescription. Will provide this for him at discharge Surgeries and Procedures ERCP 01/02 Medication List .. aspirin 81 MG EC tablet Take 1 tablet by mouth daily. furosemide 40 MG tablet Commonly known as: Lasix Take 1 tablet by mouth daily as needed. gabapentin 300 MG capsule Commonly known as: Neurontin Take 1 capsule by mouth 4 times a day. lisinopril 2.5 MG tablet Take 1 tablet by mouth daily. [...] as needed for nausea or vomiting. oxyCODONE 10 MG immediate release tablet Commonly known as: Roxicodone Take 1 tablet by mouth every 4 hours as needed for moderate pain or severe pain. potassium chloride CR 20 MEQ ER tablet Commonly known as: Klor-Con M20 Take 1 tablet by mouth daily. Do not crush or chew. rivaroxaban 20 MG tablet Commonly known as: Xarelto Take 1 tablet by mouth 1 time each day with dinner. Take with food. senna-docusate sodium 8.6-50 MG tablet Commonly known as: Senokot-S Take 1 tablet by mouth 2 times a day as needed for constipation. Where to Get Your Medications These medications were sent to [id number] - [place], [place] - [address] [address] [address] [facility] [address] [address] [place] [id number] oxyCODONE 10 MG immediate release tablet rivaroxaban 20 MG tablet Discharge Diagnosis Medical Problems Active and Resolved Hospital Problems Hospital * (Principal) Biliary obstruction Post Discharge Instructions Patient was instructed to return to emergency room with any worsening abdominal pain or jaundice Outpatient Follow-Up Future Appointments Date Time Provider Department Center 01/24/2025 8:30 AM Nito Balderas MD [facility] Test Results Pending At Discharge Pertinent Physical Exam At Time of Discharge Physical Exam Constitutional: Appearance: He is normal weight. He is not ill-appearing. HENT: Head: Normocephalic and atraumatic. Mouth/Throat: Pharynx: Oropharynx is clear. No oropharyngeal exudate. Eyes: General: No scleral icterus. Cardiovascular: Rate and Rhythm: Normal rate and regular rhythm. Pulses: Normal pulses. Heart sounds: Normal heart sounds. Pulmonary: Effort: Pulmonary effort is normal. No respiratory distress. Breath sounds: Normal breath sounds. No stridor. No wheezing or rhonchi. Skin: Coloration: Skin is not jaundiced. Neurological: General: No focal deficit present. Mental Status: He is alert and oriented to person, place, and time. Psychiatric: Mood and Affect: Mood normal. Behavior: Behavior normal. Discharge Disposition/Condition Disposition: Home Condition: Stable (s/sx potential problems absent or manageable) I spent >30 minutes of patient care and instruction time in preparation for this discharge. Cosigned by Ciro Forbes MD at 01/03/2025 6:44 PM EDT Associated attestation - Ciro Forbes MD - 01/03/2025 6:44 PM EDT I saw and evaluated the patient with the medical/PALLIATIVE CARE SPECIALIST/PA student. I discussed the case with the medical/PALLIATIVE CARE SPECIALIST/PA student and agree with the findings and plan as documented. I personally performed the Examand Medical Decision Making. * H&P - Shoaib Ramachandran MD - 01/03/2025 11:27 AM EDTAssociated Order(s): Inpatient consult to Surgical Oncology Images from the original note were not included. [facility] Department of Surgery Division of Surgical Oncology History & Physical Note Reason for Consult: Pancreatic adenocarcinoma Requesting Service: Hospital Medicine Consult Date and Time: 01/03/2025 Inpatient consult to Surgical Oncology Consult performed by: Shoaib Ramachandran MD Consult ordered by: Ciro Forbes MD Reason for consult: Pancreatic adenocarcinoma Subjective History of Present Illness: Chief Complaint: Pancreatic head adenocarcinoma Guanako Brock is a 64 y.o. male with PMHx significant for HFPEF (EF 45-60%), pAFib (not on anticoagulation), CAD s/p stents x8, and hypertension who presented to the [facility] 12/25/2024 withconcerns for intractable nausea, [...] are consistent with adenocarcinoma of the pancreas. Mr. Brock was initially consulted by surgical oncology on 12/25 for discussion of surgical management of pancreatic adenocarcinoma. Recommendations at that time included nutritional support and pancreatic rest with possible future Whipple procedure. Patient opted to decline procedure at the time and was discharged. Mr Brock represented to the ED on 01/01 for acute worsening in abdominal pain. Following admissionhe underwent ERCP with pancreatic duct stent placement. At that time, patient expressed an interestin surgical resection of his tumor. SGO was consulted for discussion of surgical management. On examination, Mr Brock was resting comfortably in bed. Mr Brock was adamant about this disinterest in surgical intervention at this time. He is not interesting in pursuing surgery due to concernsof mortality associated with the Whipple procedure given his significant HFrEF, CAD, and A fib. We discussed the consequences of foregoing surgical or medical management at this time. He expressed anunderstanding regarding his decision to forego any treatment at this time. He will f/u with medicaloncology on January 24 and discuss treatment at that time. He underwent ERCP with GI yesterday and has had an improvement in his epigastric pain. He denies pain on exam today. He denies hematemesis, pruritus, nausea, or vomiting. Review of Systems: Relevant review of systems was obtained as able and is negative unless stated above in HPI. History Obtained From: Patient Past Medical History: Past Medical History[1] Allergies And Reactions: Allergies[2] Past Surgical History: Surgical History[3] Family Medical History: Family History[4] Reviewed and Non-contributory Social History: Social History Socioeconomic History Marital [...] on file Food Insecurity: No Food Insecurity (12/27/2024) Hunger Vital Sign Worried About Running Out [...] Sometimes true Transportation Needs: No Transportation Needs (12/27/2024) PRAPARE - Transportation Lack of Transportation (Medical): No Lack of Transportation (Non-Medical): No Physical Activity: Not on file Stress: Not on file Social Connections: Not on file Intimate Partner Violence: Not At Risk (12/06/2024) Humiliation, Afraid, Rape, and Kick questionnaire Fear of Current or Ex-Partner: No Emotionally Abused: No Physically Abused: No Sexually Abused: No Housing Stability: Low Risk (12/27/2024) Housing Stability Vital Sign Unable to Pay for Housing in the Last Year: No Number of Times Moved in the Last Year: 0 Homeless in the Last Year: No Immunizations: There is no immunization history on file for this patient. I have updated and confirmed the past medical, surgical, family and social history. Home Medications: Prior to Admission medications Medication Sig Start Date End Date Taking? Authorizing Provider aspirin 81 MG EC tablet Take 1 tablet by mouth daily. 12/26/24 01/25/25 Yes Iesha Pride MD furosemide (Lasix) 40 MG tablet Take 1 tablet by mouth daily as needed. Yes ProviderRobert MD gabapentin (Neurontin) 300 MG capsule Take 1 capsule by mouth 4 times a day. Yes Robert Antonio MD lisinopril 2.5 MG tablet Take 1 tablet by mouth daily. Yes ProviderRobert MD metoprolol succinate XL (Toprol-XL) 25 MG 24 hr tablet Take 1 tablet by mouth daily. Do not crush or chew. 12/26/24 01/25/25 Yes Iesha Pride MD naloxone (Narcan) 4 mg/0.1 mL nasal spray 1. Give 1 spray in nostril for no/slow breathing or cannot wake after opioid use 2. Call 911 3. Repeat in other nostril if symptoms continue 12/26/24 Yes Iesha Pride MD ondansetron ODT (Zofran-ODT) 4 MG disintegrating tablet Dissolve 1 tablet on the tongue every 6 hours as needed for nausea or vomiting. 12/25/24 Yes Aramis Abreu MD oxyCODONE (Roxicodone) 5 MG immediate release tablet Take 1 tablet by mouth every 6 hours as neededfor severe pain (Breakthrough pain) for up to 7 days. 12/26/24 01/02/25 Yes Iesha Pride MD potassium chloride CR (Klor-Con M20) 20 MEQ ER tablet Take 1 tablet by mouth daily. Do not crush orchew. Yes ProviderRobert MD senna-docusate sodium (Senokot-S) 8.6-50 MG tablet Take 1 tablet by mouth 2 times a day as needed for constipation. 12/07/24 Yes Terrance Del Real MD potassium chloride CR (Klor-Con M20) 20 MEQ ER tablet Take 1 tablet by mouth daily. Do not crush orchew. 01/02/25 ProviderRobert MD Anti-Thrombotic Medications: Is this patient taking warfarin, new oral anti-coagulant, or anti-platelet medication? Yes If Yes, What Medication: Aspirin Current Hospital Medications: Current Medications[5] Objective Objective: Visit Vitals BP (!) 137/93 (BP Location: Left arm, Patient Position: Lying) Pulse 82 Temp 36.4 ??C (97.6 ??F) (Oral) Ht 1.702 m (5' 7 ) Wt 68 kg (150 lb) SpO2 96% BMI 23.49 kg/m?? @ Physical Exam: Physical Exam Vitals reviewed. Constitutional: Appearance: Normal appearance. Cardiovascular: Rate and Rhythm: Normal rate. Pulses: Normal pulses. Pulmonary: Effort: Pulmonary effort is normal. Abdominal: General: Abdomen is flat. Tenderness: There is no abdominal tenderness. There is no guarding or rebound. Skin: General: Skin is warm. Capillary Refill: Capillary refill takes less than 2 seconds. Neurological: Mental Status: He is alert. Laboratory: CBC WBC 9.38 Hb 16.2 Plt 230 Hct 49.9 ANC 7.83 (H) INR ??, PTT ??, Anti-Xa ?? MCV 88 BMP Na 140 Cl 103 BUN 10 Glu 115 (H) K 4.1 Co2 23 Cr 0.98 Ca 8.6 (L) iCa ?? Mg 1.9, Phos 3.7 Lactate ?? LFT AST 78 (H) AlkPhos 278 (H) T Prot 5.7 (L) ALK 219 (H) Bili 6.3 (H) Alb ?? D.Bili ?? Imaging: Radiographic Interpretation: No imagining today. Assessment/Plan Assessment & Plan: Guanako Brock is a 64 y.o. male with 64 y.o. male with PMHx significant for HFPEF, AFib, CAD s/pstents x8, and hypertension presenting for pancreatic head adenocarcinoma. Patient has had an extensive conversation with Dr. Navarro during his last admission (12/25) regarding his resectable tumor. Recommendations during initial consultation included nutritional support and bowel rest to allow his acute pancreatitis to resolve before pursuing surgical intervention. He declined this treatment planduring his initial hospitalization. Upon re- consultation today, he is still adamant about foregoingtreatment at this time due to concerns of mortality associated with the Whipple procedure. He will f/u with medical oncology on 01/24 to discuss medical management of his tumor. Medical Problems Problem List * (Principal) Biliary obstruction Mass of head of pancreas Acute pancreatitis ELDER (acute kidney injury) (CMS/HCC) Hyponatremia Chronic heart failure with preserved ejection fraction (CMS/HCC) Overview Signed 12/04/2024 2:27 AM by Jeff Cramer, MEDICAL DIRECTOR/HEAD TEAM PHYSICIAN -ECHO 05/19/2021: LVEF is variable d/t arrhythmia, but is visually estimated at 45 - 60%. Paroxysmal A-fib (CMS/HCC) Essential hypertension Tobacco use disorder Pancreatic mass Upper abdominal pain Moderate protein-calorie malnutrition (CMS/HCC) Malignant neoplasm of pancreas, unspecified location of malignancy (CMS/HCC) Spinal stenosis of lumbar region with neurogenic claudication Overview Signed 11/20/2021 1:56 PM by Sae Rubio Added automatically from request for surgery [id number] Dispo: Surgery will now sign off CODE STATUS: do not resuscitate This Consult, Assessment, and Plan has been discussed with Dr. Navarro, Attending Physician Jillian Ramachandran MD General Surgery, PGY-1 Pager: [phone] 2:52 PM 01/03/2025 [1] Past Medical History: Diagnosis Date A-fib (CMS/HCC) CHF (congestive heart failure) (CMS/HCC) Coronary artery disease Hypertension Lower back pain Numbness and tingling of both feet Spinal stenosis of lumbar region with neurogenic claudication 11/20/2021 Added automatically from request for surgery [id number] [2] Allergies Allergen Reactions Atorvastatin Hallucinations Happens [...] Route Frequency Provider Last Rate Last Admin aspirin chewable tablet 81 mg 81 mg Oral Daily Haider Jain DO 81 mg at 01/03/25 0834 enoxaparin (Lovenox) syringe 40 mg 40 mg Subcutaneous Daily Epifanio Kaplan MD 40 mg at 01/03/25 0834 [START ON 01/04/2025] gabapentin (Neurontin) capsule 1,200 mg 1,200 mg Oral Daily Ciro Forbes MD HYDROmorphone (Dilaudid) injection 0.5 mg 0.5 mg Intravenous q4h PRN Ciro Forbes MD metoprolol succinate XL (Toprol-XL) 24 hr tablet 25 mg 25 mg Oral Daily Haider Jain DO 25 mg at 01/03/25 0834 ondansetron ODT (Zofran-ODT) disintegrating tablet 4 mg 4 mg Oral q6h PRN Haider Jain DO Or ondansetron (Zofran) injection 4 mg 4 mg Intravenous q6h PRN Haider Jain DO 4 mg at 01/02/25 1808 Or ondansetron (Zofran) 4 MG/5ML solution 4 mg 4 mg Oral q6h PRN Haider Jain DO oxyCODONE (Roxicodone) immediate release tablet 10 mg 10 mg Oral q4h PRN Ciro Forbes MD 10 mg at01/03/25 0539 piperacillin-tazobactam (Zosyn) 4.5 g in sodium chloride 0.9% 100 mL IVPB (vial adapter required) 4.5 g Intravenous q6h Ciro Forbes MD 36.7 mL/hr at 01/03/25 1018 4.5 g at 01/03/25 1018 polyethylene glycol (Miralax) packet 17 g 17 g Oral Daily Haider Jain DO 17 g at 01/02/25 0803 prochlorperazine (Compazine) tablet 5 mg 5 mg Oral q6h PRN Ciro Forbes MD Or prochlorperazine (Compazine) suppository 25 mg 25 mg Rectal q12h PRN Ciro Forbes MD Or prochlorperazine (Compazine) injection 2.5 mg 2.5 mg Intravenous q6h PRN Ciro Forbes MD 2.5 mg at 01/02/25 1921 Or prochlorperazine (Compazine) injection 5 mg 5 mg Intramuscular q6h PRN Ciro Forbes MD sodium chloride 0.9 % flush 10 mL 10 mL Intravenous q12h ItaHaider muhammad, DO 10 mL at 01/03/25 0446 And sodium chloride 0.9 % flush 10 mL 10 mL Intravenous PRN Haider Jain, DO sodium chloride 0.9 % flush 10 mL 10 mL Intravenous q12h Shahbaz [place] MD 10 mL at 01/03/25 0446 And sodium chloride 0.9 % flush 10 mL 10 mL Intravenous PRN Shahbaz [place] MD Cosigned by Ronda Bedoya MD at 01/08/2025 5:24 PM EDT Associated attestation - Ronda Bedoya MD - 01/08/2025 5:24 PM EDT I saw and evaluated the patient with the resident/fellow. I discussed the case with the resident/fellow and agree with the findings and plan as documented. * Care Plan - Jillian Aldrich MD - 01/03/2025 9:18 AM EDT Patient seen and examined, labs reviewed. Abdominal pain is improving post ERCP. Advancing diet as tolerated. - ERCP 01/02: distal CBD compressed by moreno mass. CHD and PD stent Recommendations: - KUB in 2 weeks to check for presence of pancreatic stent. If stent still present, will need an EGD (ordered for outpatient, if patient remains inpatient, please order) - Repeat ERCP in 12 weeks (ordered) - Plan further PDAC treatment with surgery, oncology - Per chart review, patient declines Whipple surgery again and plans to follow up with medical oncology at the end of the month to discuss treatment options. Recommend palliative care consult We will sign off at this time. Please reach out with additional questions or concerns. * Progress Notes - Nancy Vincent - 01/03/2025 8:58 AM EDT Case Management Adult Progress Note Guanako Brock 64 y.o. male CSN: [id number] Admission: 01/01/2025 5:29 PM Primary Problem: Biliary obstruction Anticipated Discharge Date: TBD-pending medical progress Additional Comments Plan of care reviewed with pt's care team; and per MD, pt is not medically ready for discharge. S/pERCP with GI. Pt is on a CLD, but plan to advance as tolerated. SW will continue to follow pt's progress and discharge plan. Initial assessment pending. NAOMY Rowland Case Management * Care Plan - Jennifer Olivera RN - 01/03/2025 7:31 AM EDT Problem: Adult Inpatient Plan of Care Goal: Plan of Care Review Outcome: Ongoing, Progressing Flowsheets (Taken 01/03/2025729) Plan of Care Reviewed With: patient Goal: Patient-Specific Goal (Individualized) Outcome: Ongoing, Progressing Flowsheets (Taken 01/03/2025 0727) Patient/Family-Specific Goals (Include Timeframe): pt will remain free of falls throughout shift Individualized Care Needs: pain control Anxieties, Fears or Concerns: pain Goal: Absence of Hospital-Acquired Illness or Injury Outcome: Ongoing, Progressing Goal: Optimal Comfort and Wellbeing Outcome: Ongoing, Progressing Intervention: Provide Person-Centered Care Flowsheets (Taken 01/03/2025729) Trust Relationship/Rapport: care explained emotional support provided questions answered Goal: Readiness for Transition of Care Outcome: Ongoing, Progressing Problem: Fall Injury Risk Goal: Absence of Fall and Fall-Related Injury Outcome: Ongoing, Progressing Intervention: Promote Injury-Free Environment Flowsheets (Taken 01/03/2025 07) Safety Promotion/Fall Prevention: assistive device/personal items within reach clutter-free environment maintained fall prevention program maintained safety round/check completed nonskid shoes/slippers when out of bed toileting scheduled Problem: Pain Acute Goal: Optimal Pain Control and Function Outcome: Ongoing, Progressing Intervention: Prevent or Manage Pain Flowsheets (Taken 01/03/2025 0730) Bowel Elimination Promotion: ambulation promoted Sleep/Rest Enhancement: consistent schedule promoted awakenings minimized noise level reduced regular sleep/rest pattern promoted relaxation techniques promoted Problem: Nausea and Vomiting Goal: Nausea and Vomiting Relief Outcome: Ongoing, Progressing Intervention: Prevent and Manage Nausea and Vomiting Flowsheets (Taken 01/03/2025 07) Environmental Support: calm environment promoted rest periods encouraged Problem: Skin Injury Risk Increased Goal: Skin Health and Integrity Outcome: Ongoing, Progressing Intervention: Optimize Skin Protection Flowsheets (Taken 01/03/2025 07) Activity Management: activity adjusted per tolerance activity encouraged Pressure Reduction Techniques: frequent weight shift encouraged * Consults - Beverly Mcbride RD - 01/03/2025 7:27 AM EDT Adult Nutrition Evaluation Note Guanako Brock 64 y.o. male CSN: [id number] Room/Bed 224-8/224-8 Nutrition evaluation type: assessment Reason for evaluation: nurse consult; [facility] 3 Hospital course: 64 yoM presents to ED 01/01 with abnormal labs and continued abdominal pain. Pt endorses that his oral intake has remained poor and has had associated nausea, but no recent episodes ofvomiting. Pt with hyperbilirubinemia 2/2 bilary tract stenosis/obstruction ISO pancreatic cancer. Past medical/ surgical history: Past Medical History[1] Surgical History[2] Social history: Social History[3] Additional comments: Pt seen in room lying in bed. Pt reports trino is fair. He is on a clear liquids-stated he wanted a cheeseburger. But he followed up by saying he knows what to eat so he won't havepain, and his was very strict. No food allergies. UBW 200# (x 2.5 months)-pt has lost ~25% weight. Pt does note he has had some nausea. Denies C/D or any issues chewing/swallowing. Pt is missingteeth but has no issues chewing anything. Agreeable to try Boost Breeze. Vitals and Basic Assessment: BP: (!) 137/93 Temp: 36.4 ??C (97.6 ??F) Oxygen Therapy: None (Room air) Ananda Coma Scale Score: 15 Lisandro Scale Score: 18 Most Recent BM Date: 01/02/25 (per pt) GI Symptoms: Nausea Allergies: NKFA Medications: Current Scheduled Medications[4] Meds were reviewed: Yes Labs: Lab Results Component Value Date GLUCOSE 115 (H) 01/03/2025 CALCIUM 8.6 (L) 01/03/2025 NA 140 01/03/2025 K 4.1 01/03/2025 CO2 23 01/03/2025 CL 103 01/03/2025 BUN 10 01/03/2025 CREATININE 0.98 01/03/2025 PHOS 3.7 01/03/2025 MG 1.9 01/03/2025 HGBA1C 6.5 (H) 12/26/2024 Lab Results Component Value Date WBC 9.38 01/03/2025 HGB 16.2 01/03/2025 HCT 49.9 01/03/2025 MCV 88 01/03/2025 PLT 230 01/03/2025 Anthropometrics: Height: 170.2 cm (5' 7 ) Weight: 68 kg (150 lb) BMI (Calculated): 23.49 Weight Evaluation: Normal (BMI 18.5-24.9) [place] Body Weight (kg): 67.2 Percent [place] Body Weight: 101 Estimated Needs: Metabolic Cart Study Results: Current Nutrition Intake: Diet Order: Adult Diet Diet Texture: Clear liquid Percent Meals Eaten (%): none to note Diet Experience and Nutrition History: Diet Education Provided: Will monitor Pertinent home medications: lasix, gabapentin, lisinopril, metoprolol succinate XL, ondansetron, potassium chloride, senna-docusate sodium [employer] needs: Nutrition Focused Physical Exam: Unable to Complete Exam: Patient unable to participate (pt took phone call from ) Physical exam performed on (date): Assessment of Malnutrition: Nutrition Problem: Inadequate oral intake related to acute illness as evidenced by NPO/CLD. Status of Nutrition Diagnosis: New Nutrition Interventions and Recommendations: - Advance diet as tolerated - Boost Breeze TID while on CLD-change to Boost VHC BID once diet upgraded. - Encourage adequate po intake - Record daily meal intakes on flowsheet Nutrition Monitoring and Goals: - Diet advanced by follow up - PO intake > 75% of most meals - Monitor po intake and tolerance, weight changes, labs, GI function and skin integrity. Acuity Level: 2 Beverly Mcbride, RD, LD [1] Past Medical History: Diagnosis Date A-fib ([facility]) CHF (congestive heart failure) ([facility]) Coronary artery disease Hypertension Lower back pain Numbness and tingling of both feet Spinal stenosis of lumbar region with neurogenic claudication 11/20/2021 Added automatically from request for surgery [id number] [2] Past Surgical History: Procedure Laterality Date [...] Comment: every two or three days [4] aspirin, 81 mg, Oral, Daily enoxaparin, 40 mg, Subcutaneous, Daily [START ON 01/04/2025] gabapentin, 1,200 mg, Oral, Daily metoprolol succinate XL, 25 mg, Oral, Daily piperacillin-tazobactam, 4.5 g, Intravenous, q6h polyethylene glycol, 17 g, Oral, Daily [COMPLETED] Insert peripheral IV, , , Once AND [COMPLETED] Saline lock IV, , , Once AND sodium chloride, 10 mL, Intravenous, q12h AND sodium chloride, 10 mL, Intravenous, PRN [COMPLETED] Insert peripheral IV, , , Once AND [COMPLETED] Saline lock IV, , , Once AND sodium chloride, 10 mL, Intravenous, q12h AND sodium chloride, 10 mL, Intravenous, PRN * Care Plan - Sammy Sampson RN - 01/02/2025 11:06 PM EDT Problem: Adult Inpatient Plan of Care Goal: Plan of Care Review 01/02/20252303 by Sammy Sampson, RN Outcome: Ongoing, Progressing Flowsheets (Taken 01/02/20252303) Progress: no change Outcome Evaluation: Patient willl have decrease in pain this shift Plan of Care Reviewed With: patient 01/02/20252303 by Sammy Sampson, RN Outcome: Ongoing, Progressing Goal: Patient-Specific Goal (Individualized) 01/02/20252303 by Sammy Sampson, RN Outcome: Ongoing, Progressing 01/02/20252303 by Sammy Sampson, RN Outcome: Ongoing, Progressing Goal: Absence of Hospital-Acquired Illness or Injury 01/02/20252303 by Sammy Sampson, RN Outcome: Ongoing, Progressing 01/02/20252303 by Sammy Sampson, RN Outcome: Ongoing, Progressing Goal: Optimal Comfort and Wellbeing 01/02/20252303 by Sammy Sampson, RN Outcome: Ongoing, Progressing 01/02/20252303 by Sammy Sampson, RN Outcome: Ongoing, Progressing Goal: Readiness for Transition of Care 01/02/20252303 by Sammy Sampson, KENNETH Outcome: Ongoing, Progressing 01/02/20252303 by Sammy Sampson, RN Outcome: Ongoing, Progressing Problem: Fall Injury Risk Goal: Absence of Fall and Fall-Related Injury Outcome: Ongoing, Progressing Intervention: Identify and Manage Contributors Flowsheets (Taken 01/02/20251999) Medication Review/Management: medications reviewed Self-Care Promotion: independence encouraged meal set-up provided adaptive equipment use encouraged Problem: Pain Acute Goal: Optimal Pain Control and Function Outcome: Ongoing, Progressing Intervention: Optimize Psychosocial Wellbeing Flowsheets (Taken 01/02/20252303) Supportive Measures: active listening utilized goal-setting facilitated self-care encouraged Intervention: Develop Pain Management Plan Flowsheets (Taken 01/02/20252303) Pain Management Interventions: medication (see MAR) Intervention: Prevent or Manage Pain Flowsheets (Taken 01/02/20252303) Bowel Elimination Promotion: ambulation promoted commode/bedpan at bedside diet adjusted Sleep/Rest Enhancement: consistent schedule promoted noise level reduced regular sleep/rest pattern promoted relaxation techniques promoted room darkened Medication Review/Management: medications reviewed Problem: Nausea and Vomiting Goal: Nausea and Vomiting Relief Outcome: Ongoing, Progressing Intervention: Prevent and Manage Nausea and Vomiting Flowsheets (Taken 01/02/20252303) Nausea/Vomiting Interventions: sips of clear liquids given Environmental Support: calm environment promoted * H&P - Kyler Mo MD - 01/02/2025 4:12 PM EDT Gastroenterology, Hepatology and Nutrition Pre-Endoscopy History & Physical Patient: Guanako Brock Date of : 1960 Attending: Ciro Forbes MD Date of Visit: January 02, 2025 Chief Complaint/Reason for Visit: Jaundice, PDAC SUBJECTIVE: History of Present Illness: Mr. Guanako Brock is a 64 y.o. male here today for ERCP. He has a past medical history of A-fib (CMS/HCC), CHF (congestive heart failure) (CMS/HCC), Coronary artery disease, Hypertension, Lower back pain, Numbness and tingling of both feet, and Spinal stenosis of lumbar region with neurogenic claudication (11/20/2021). Mr. Guanako Brock is NPO. He reports no previous adverse reactions with anesthesia or sedation. Anticoagulation and antiplatelet medications: none and Aspirin Last dose: not held He has never been diagnosed with a bleeding or clotting disorder. He denies previous surgery on hisesophagus, stomach, small bowel or colon. He denies dysphagia. ROS: Negative except as per HPI Allergies[1] Current Outpatient Medications Medication Instructions aspirin 81 mg, Oral, Daily furosemide (LASIX) 40 mg, Daily PRN gabapentin (NEURONTIN) 300 mg, 4 times daily lisinopril 2.5 mg, Daily metoprolol succinate XL (TOPROL-XL) 25 mg, Oral, Daily, Do not crush or chew. naloxone (NARCAN) 4 mg, Nasal, As needed ondansetron ODT (ZOFRAN-ODT) 4 mg, Oral, Every 6 hours PRN oxyCODONE (ROXICODONE) 5 mg, Oral, Every 6 hours PRN potassium chloride CR (Klor-Con M20) 20 MEQ ER tablet 20 mEq, Daily senna-docusate sodium (Senokot-S) 8.6-50 MG tablet 1 [...] sounds normal. No rebound or guarding. Laboratory/Imaging/Pathology: Recent Labs 01/01/25 1724 01/01/25 2045 HGB -- 15.6 PLT -- 218 BILITOT 8.8* -- ASSESSMENT & PLAN: Mr. Guanako Brock is a 64 y.o. male here today for ERCP. He has a past medical history of A-fib (CMS/HCC), CHF (congestive heart failure) (CMS/HCC), Coronary artery disease, Hypertension, Lower back pain, Numbness and tingling of both feet, and Spinal stenosis of lumbar region with neurogenic claudication (11/20/2021). 1) Jaundice, PDAC PLAN: - Continue NPO - PIV - Obtain consent - Proceed with plans for ERCP - The risks, benefits, potential complications, limitations and alternatives to the procedure were discussed, including but not limited to pain, bloating, bleeding, infection, perforation, clinical deterioration, pancreatitis, aspiration, cardiopulmonary and cerebrovascular events, need for emergency surgery and even . The informed consent was signed by myself and the patient. Kyler Mo MD [1] Allergies Allergen Reactions Atorvastatin Hallucinations Happens with brand name only [2] Past Medical History: Diagnosis Date A-fib ([facility]) CHF (congestive heart failure) ([facility]) Coronary artery disease Hypertension Lower back pain Numbness and tingling of both feet Spinal stenosis of lumbar region with neurogenic claudication 11/20/2021 Added automatically from request for surgery [id number] [3] Past Surgical History: Procedure Laterality Date [...] of Health Food Insecurity: No Food Insecurity (12/27/2024) Hunger Vital Sign Worried About Running Out [...] Sometimes true Transportation Needs: No Transportation Needs (12/27/2024) PRAPARE - Transportation Lack of Transportation (Medical): No Lack of Transportation (Non-Medical): No Intimate Partner Violence: Not At Risk (12/06/2024) Humiliation, Afraid, Rape, and Kick questionnaire Fear of Current or Ex-Partner: No Emotionally Abused: No Physically Abused: No Sexually Abused: No Housing Stability: Low Risk (12/27/2024) Housing Stability Vital Sign Unable to Pay for Housing in the Last Year: No Number of Times Moved in the Last Year: 0 Homeless in the Last Year: No * Hospital Course - Gaby Carmona - 01/02/2025 11:17 AM EDT 64 y.o. male with PMH of severe CAD, permanent atrial fibrillation not on anti- coagulation, and newly diagnosed pancreatic adenocarcinoma admitted for biliary tract obstruction 2/2 newly diagnosed pancreatic adenocarcinoma. Patient was recently admitted, and discharged 12/26/2024. At outpatient follow up appointment found to have transaminitis of ALT 308, AST 210, and hyperbilirubinemia of 8.8 (1.8on discharge 12/26). Additionally, patient described diffuse abdominal pain and nausea with poor PO intake. PCP recommended to present to ED and was, ultimately, admitted to hospital medicine. Problems addressed during this admission: #Hyperbilirubinemia and #Biliary tract obstruction both 2/2 #Pancreatic adenocarcinoma - prior admission 12/25: surgical oncology recommended nutrition optimization via NG feeding and surgical intervention. Patient did not wish to pursue. GI attempted ERCP, was unable to visualize ampulla. - CT abdomen and pelvis with unchanged biliary dilatation and mild proximal pancreatic duct dilatation. - Patient was started on zosyn due to concern for cholangitis - GI was consulted 01/02 and proceeded with ERCP with stent intervention of common hepatic duct and pancreatic duct. - Surgical Oncology was consulted 01/03 and patient politely declined Whipple procedure - Patient was hemodynamically stable with downtrending transaminases and total bilirubin - Patient will follow up with GI for KUB in 2 weeks #HFrEF #severe CAD #Permanent atrial fibrillation, not medically optimized - CHADs-VASC score 2 - TTE EF 15-20%, moderate to severe MR, RVSP mildly elevated - 01/02, held lasix 40, lisinopril 2.5 due to concern for cholangitis - Patient will resume GDMT upon discharge - Per pharmacy, patient has not picked up previous xarelto prescription. Will provide this for him at discharge * Consults - Jillian Aldrich MD - 01/02/2025 10:10 AM EDTAssociated Order(s): IP CONSULT TO GASTROENTEROLOGY Gastroenterology Consult Note Reason for Consult: biliary stenosis/obstruction HPI Guanako Brock is a 64 y.o. male with a PMH of recently diagnosed pancreatic adenocarcinoma, CAD,afib not on AC, HFrEF (EF 15-30%) on whom we were consulted for hyperbilirubinemia. He was admitted overnight with abdominal pain and abnormal labs from PCP. EUS/ERCP 12/20/24: Unable to cannulate 2/2 significant small bowel motility. In the head of the pancreas, the [...] so 3 fine needle biopsy passes were taken. FNA revealed scant markedly atypical cells most compatible with adenocarcinoma Surg onc consulted and recommended Whipple, however patient politely declined. Today, patient states he misunderstood the surgeons, and would like to speak with them again to reconsider Whipple. He states abdominal pain has worsened and jaundice has also worsened. He is open to stenting via ERCP At time of consultation, patient afebrile and hemodynamically stable. Labs notable for ALT 308, EZD905, AlkPhos 297, Bili 8.8, lipase 474. CTAP revealed redemonstration of pancreatic head mass whichis similar in appearance to prior. Essentially unchanged mild intra and extrahepatic biliary dilatation and mild proximal pancreatic ductal dilatation. ROS All systems reviewed and negative unless otherwise noted in HPI. Past Medical History[1] Surgical History[2] Family History[3] Social History[4] Objective Vitals: 01/02/25 0115 01/02/25 0400 01/02/25 0404 01/02/25 0720 BP: 120/75 (!) 133/90 (!) 139/95 BP Location: Left arm Right arm Patient Position: Lying Lying Pulse: 91 99 95 Resp: 17 17 18 Temp: 36.3 ??C (97.4 ??F) 36.3 ??C (97.4 ??F) 36.5 ??C (97.7 ??F) TempSrc: SpO2: 90% 94% 94% 94% Weight: BMI: Body mass index is 23.49 kg/m??. Physical Exam: General NAD Eyes sclera anicteric Head NC/AT ENT OP moist. CV Warm and well perfused RES Equal chest rise, normal effort GI Soft. NT/ND. No rebound, guarding. CLEMENTE No gross deficits. EXT No cyanosis. No edema Skin No visible skin lesions I/O: No intake/output data recorded. No intake/output data recorded. Labs: CBC: Results from last 7 days Lab Units 01/01/25 2045 WBC 10*3/uL 7.95 HEMOGLOBIN g/dL 15.6 HEMATOCRIT % 45.2 PLATELETS 10*3/uL 218 CMP: Results from last 7 days Lab Units 01/02/25 0412 01/01/25 1724 SODIUM mmol/L -- 136 POTASSIUM mmol/L 3.8 5.9* CHLORIDE mmol/L -- 104 CO2 mmol/L -- 18* BUN mg/dL -- 11 CREATININE mg/dL -- 0.83 CALCIUM mg/dL -- 9.2 BILIRUBIN TOTAL mg/dL -- 8.8* ALKALINE PHOSPHATASE U/L -- 297* ALT U/L -- 308* AST U/L -- 210* GLUCOSE mg/dL -- 128* Microbiology/Abx: Results No results found for the last 48 hours. Imaging: @IMAGES@ Medications (scheduled): Current Scheduled Medications[5] Medications (continous): Current Continuous Medications[6] Medications (PRN): Current PRN Medications[7] Assessment and Plan Guanako Brock is a 64 y.o. male with a PMH of recently diagnosed pancreatic adenocarcinoma, CAD,afib not on AC, HFrEF (EF 15-30%) on whom we were consulted for hyperbilirubinemia. Obstructive Jaundice Pancreatic Adenocarcinoma - EUS/ERCP 12/20/24: Unable to cannulate 2/2 significant small bowel motility. In the head of the pancreas, the CBD narrowed from about 6 mm to < 1 mm. There was a heterogeneous and irregular mass-like area of abnormal pancreatic parenchyma measuring 26 mm x 26 mm with poorly defined and irregular margins was visualized in the pancreas. This was not typical for tumor but was at least concerningfor possible tumor and so 3 fine needle biopsy passes were taken. FNA revealed scant markedly atypical cells most compatible with adenocarcinoma Recommendations - Will plan for ERCP this afternoon, please continue NPO and hold AC - Recommend surgical oncology consult as patient would like to reconsider Whipple/treatment options Staffed w/ attending: Dr. Mo Thank you for allowing us to participate in this patient's care. Please do not hesitate to call or page with questions or concerns. Jillian Aldrich MD PGY-5 Gastroenterology Fellow Pager: [phone] [1] Past Medical History: Diagnosis Date A-fib (CMS/HCC) CHF (congestive heart failure) ([facility]) Coronary artery disease Hypertension Lower back pain Numbness and tingling of both feet Spinal stenosis of lumbar region with neurogenic claudication 11/20/2021 Added automatically from request for surgery [id number] [2] Past Surgical History: Procedure Laterality Date [...] Comment: every two or three days [5] aspirin, 81 mg, Oral, Daily furosemide, 40 mg, Oral, Daily gabapentin, 300 mg, Oral, 4x daily lisinopril, 2.5 mg, Oral, Daily metoprolol succinate XL, 25 mg, Oral, Daily polyethylene glycol, 17 g, Oral, Daily sodium chloride, 10 mL, Intravenous, q12h [6] [7] PRN medications: ondansetron ODT OR ondansetron OR ondansetron, oxyCODONE, Insert peripheral IV AND Saline lock IV AND sodium chloride AND sodium chloride Cosigned by Kyler Mo MD at 01/02/2025 4:15 PM EDT Associated attestation - Kyler Mo MD - 01/02/2025 4:15 PM EDT I saw and evaluated the patient with the resident/fellow. I discussed the case with the resident/fellow and agree with the findings and plan as documented. * H&P - Haider Jain DO - 01/02/2025 3:00 AM EDTAssociated Order(s): Consult to Hospital Medicine Images from the original note were not included. Hospital Medicine History & Physical Consult to Hospital Medicine Consult performed by: Haider Jain DO Consult ordered by: Cristo Foley DO Subjective 01/01/2025 Chief Complaint: Chief Complaint Patient presents with Abdominal Pain History Of Present Illness Mr. Brock is a 64 yo M with severe CAD, permanent atrial fibrillation not on anti-coagulation, andnewly diagnosed pancreatic adenocarcinoma who was initially admitted for abnormal labs and continued abdominal pain. I reviewed prior records including his most recent discharge summary which documented newly diagnosed pancreatic adenocarcinoma, EUS 12/20-- showed gastritis, CBD narrowing, and a mass-like area in the pancreas s/p FNA, ECRP was attempted however due to small bowel motility unable to visualize the ampulla. Surg onc consulted and discussed medical optimization/ nutritional status prior to possible Whipple, however patient did not seem ready to pursue surgical options and was discharged. Patient states that he follow up with his primary care provider in had extensive discussions about his recent admission, labs were drawn and demonstrated worsening transaminitis and total bilirubin levels, couple of along with his continued pain and nausea with poor by mouth intake, it was recommended that the patient that he returned to the hospital for repeat evaluation given concern for biliary obstruction. Patient states that his pain is relatively unchanged from last admission, states thatit is constant but will wax and wane in intensity. He endorses that his oral intake has remained poor and has had associated nausea but no recent episodes of vomiting. He denies any chest pain, unchanged shortness for breath, headache/vision changes, fevers/chills, diarrhea or dysuria. Upon arrival to the ED, patient's vitals were obtained where he was found to be tachycardic which later improved. Labs were drawn and demonstrated normal CBC, hemolyzed potassium of 5.9, otherwise normal BMP, ALT of 308, AST of 210, total bilirubin of 8.8, lipase of 474 which is baseline. CTA/P demonstrating similar appearance and pancreatic head mass, unchanged mild intra and extrahepatic biliary dilatation and mild proximal pancreatic duct dilatation. Past Medical History Past Medical History[1] Surgical History Surgical History[2] Family History Family History[3] Social History Social History[4] Home Medications Current Outpatient Medications Medication Instructions aspirin 81 mg, Oral, Daily furosemide (LASIX) 40 mg, Daily PRN gabapentin (NEURONTIN) 300 mg, 4 times daily metoprolol succinate XL (TOPROL-XL) 25 mg, Oral, Daily, Do not crush or chew. naloxone (NARCAN) 4 mg, Nasal, As needed ondansetron ODT (ZOFRAN-ODT) 4 mg, Oral, Every 6 hours PRN oxyCODONE (ROXICODONE) 5 mg, Oral, Every 6 hours PRN senna-docusate sodium (Senokot-S) 8.6-50 MG tablet 1 tablet, Oral, 2 times daily PRN Objective Blood pressure 120/75, pulse 91, temperature 36.3 ??C (97.4 ??F), resp. rate 17, weight 68 kg (150 lb), SpO2 90%. Physical Exam Constitutional: General: He is not in acute distress. Appearance: Normal appearance. HENT: Head: Normocephalic. Mouth/Throat: Comments: Poor dentition Eyes: General: Scleral icterus present. Cardiovascular: Rate and Rhythm: Normal rate. Rhythm irregular. Pulses: Normal pulses. Heart sounds: No murmur heard. No gallop. Pulmonary: Effort: Pulmonary effort is normal. Breath sounds: Normal breath sounds. No wheezing. Abdominal: General: Abdomen is flat. Palpations: Abdomen is soft. Tenderness: There is abdominal tenderness (epigastric). Musculoskeletal: Right lower leg: No edema. Left lower leg: No edema. Skin: Coloration: Skin is jaundiced (mild). Neurological: Mental Status: He is alert and oriented to person, place, and time. Mental status is at baseline. Sensory: No sensory deficit. Motor: No weakness. Psychiatric: Mood and Affect: Mood normal. Behavior: Behavior normal. Data Labs personally reviewed CBC WBC 7.95 Hb 15.6 Plt 218 Hct 45.2 ANC 5.63 INR ??, PTT ??, Anti-Xa ?? BMP Na 136 Cl 104 BUN 11 Glu 128 (H) K 5.9 (H) Co2 18 (L) Cr 0.83 Ca 9.2 iCa ?? Mg ??, Phos ?? Lactate ?? LFT AST 210 (H) AlkPhos 297 (H) T Prot 6.6 ALK 308 (H) Bili 8.8 (H) Alb ?? D.Bili ?? Imaging CT personally reviewed, showing pancreatic head mass, full report as below CT Abdomen Pelvis w IV Contrast Result Date: 01/02/2025 Impression: Redemonstration of pancreatic head mass which is similar in appearance to the prior examination and would be concerning for underlying adenocarcinoma. Essentially unchanged mild intra andextrahepatic biliary dilatation and mild proximal pancreatic ductal dilatation. No definite acute fi ndings within the abdomen and pelvis. Chronic findings as described above. CRITICAL RESULT: No. COMMUNICATION: Per this written report. Drafted by Beverly Guzmán MD on 01/01/2025 11:59 PM Final report signed by Beverly Guzmán MD on 01/02/2025 12:21 AM Assessment/Plan Assessment/ Plan Principal Problem: Biliary obstruction Guanako Brock is a 64 y.o. male with PMH as per above who presents with concerns for biliary tract stenosis/obstruction 2/2 newly diagnosed pancreatic adenocarcinoma This condition poses an acute threat to life/bodily function. Hyperbilirubinemia 2/2 biliary tract stenosis/obstruction in the setting of pancreatic adenocarcinoma: - S/p EUS 12/20-- showed gastritis, CBD narrowing, and a mass-like area in the pancreas. Biopsy (FNA) obtained. ERCP was attempted however due to small bowel motility unable to visualize the ampulla. Pathology from EUS eventually revealed adenocarcinoma -following appointment with PCP, hyperbilirubinemia and transaminitis noted on labs with continued abdominal pain, nausea, poor by mouth intake --recommended admission by PCP. - elevated ALT of 308, AST of 210, total bilirubin of 8.8, cholestatic in pattern. Patient has scleral icterus and minimal/mild jaundice on exam with mild epigastric tenderness - CT abdomen and pelvis with re demonstration of pancreatic head mass and mild intra and extrahepatic ductal dilation with pancreatic ductal dilation, unchanged - given acute rise in total bilirubin, concerns for worsening biliary tree stenosis/obstruction, prior GI notes document inability to visualize ampulla of pancreatic duct which may complicate biliarystent placement. PLAN: - I had an extensive discussion with the patient regarding his prior concerns with surgical Oncology, he states that as of right now he does not feel as though he wants to continue down the route of Whipple procedure, however would be willing to talk to GI regarding stenting if it is possible. - consider repeat fluid boluses for maintaining hydration - consider GI consult in the a.m. - Zofran for nausea and oxycodone 5 q.6 p.r.n. for pain HFrEF, severe CAD, permanent atrial fibrillation, not medically optimized - Does endorse symptoms of exertional dyspnea, unchanged today - CHADS2- VASC score of 2, hx of cancer as above mentions that he picked up xarelto recently and may have started the first dose prior to arrival. - TTE showed an EF of 15-30%, moderate to severe MR, RVSP mildly elevated - patient remains euvolemic on exam likely in part to poor PO intake while on lasix, without prerenal disease - in extensive discussion as above, patient was informed that ideally, medical optimization of chronic cardiac and nutritional conditions would be recommended, including initiation of medications andconsultation with specialists given that he was overwhelmed on prior admission and requested discharge. He states he is willing to try and optimize care at the moment. PLAN -continue home aspirin for CAD, holding statin 2/2 prior allergy and transaminitis as above - continue home metoprolol and lisinopril for GDMT, with plan to up-titrate GDMT throughout admission, continue home lasix 40 mg daily for diuresis. - in the setting of cancer and permanent Afib, would like to start therapeutic AC, however would not like to delay possible procedures, consider initiation of DOAC/lovenox following procedural plan in the morning Electrolyte abnormalities: -hyperkalemia of 5.9, however hemolyzed, repeating K Chronic Medical Conditions: Neuropathic pain: resuming home gabapentin Haider Jain DO PGY-3, Internal Medicine [1] Past Medical History: Diagnosis Date A-fib ([facility]) CHF (congestive heart failure) ([facility]) Coronary artery disease Hypertension Lower back pain Numbness and tingling of both feet Spinal stenosis of lumbar region with neurogenic claudication 11/20/2021 Added automatically from request for surgery [id number] [2] Past Surgical History: Procedure Laterality Date [...] Marijuana Comment: every two or three days Cosigned by Ciro Forbes MD at 01/02/2025 5:14 PM EDT Associated attestation - Ciro Forbes MD - 01/02/2025 5:14 PM EDT I saw and evaluated the patient. I discussed the case with the resident/fellow and agree with the findings and plan as documented. Covering for acute cholangitis (piperacillin-tazobactam) & consulted GI GI attempting ERCP to resolve biliary obstruction * ED Provider Notes - Danna Miguel MD - 01/01/2025 4:12 PM EDT Images from the original note were not included. - HPI Chief Complaint Patient presents with Abdominal Pain [facility] Note: Guanako Brock is a 64 y.o. male with a history of pancreatic cancer who presents to the ED with abdominal pain. Pt complains of diffuse abdominal pain. He reports that his PCP called him yesterdayand told him to present here after routine labs showed a bilirubin of 8. He reports he has been having bowel movements and voiding urine, however urine is at times very dark. He denies fever, chills,nausea/vomiting, chest pain or shortness of breath. History provided by: Patient and spouse metal trimmer used: No MAIN ED NOTE//Danna Miguel MD: I assumed full responsibility for this patient after transfer to Main ED from [facility]. I personally performed my own history, ROS, and physical. I agree with the above [facility] documentation with the following additions/exceptions: 64-year-old male with a history of pancreatic adenocarcinoma, congestive heart failure, AFib, coronary artery disease status post stents who presents to the emergency department today for jaundice and diffuse abdominal pain. Patient states that he was recently diagnosed with pancreatic adenocarcinoma. He did follow up with his primary care doctor yesterday who noticed that he had an elevated bilirubin level. He states that he has continued to have abdominal pain which has been very similar to his previous pancreatitis pain. He was recently admitted to the hospital where he was told that he could not have surgery done on his cancer secondary to his congestive heart failure and an ejection fraction of 15-33%. States that his urine is very dark however he denies any other urinary symptoms. States that he has had 1 episode of vomiting earlier today but denies any hematemesis. Denies any chest pain or shortness of breath or fevers. Patient History Past Medical History[1] Surgical History[2] Family History[3] Social History[4] Allergies: Allergies[5] Physical Exam ED Triage Vitals [01/01/25 1618] Temp Heart Rate Resp BP 36.5 ??C (97.7 ??F) 108 18 132/85 SpO2 Temp src Heart Rate Source Patient Position 95 % -- -- Sitting BP Location FiO2 (%) Right arm -- Physical Exam Constitutional: General: He is not in acute distress. HENT: Head: Normocephalic. Comments: No facial swelling Mouth/Throat: Mouth: Mucous membranes are moist. Pharynx: Oropharynx is clear. Eyes: General: Scleral icterus present. Cardiovascular: Rate and Rhythm: Normal rate. Pulmonary: Effort: Pulmonary effort is normal. No respiratory distress. Breath sounds: Normal air entry. Comments: Speaking full sentences. Symmetric chest rise Abdominal: General: There is no distension. Tenderness: There is generalized abdominal tenderness. Musculoskeletal: General: No deformity. Normal range of motion. Cervical back: Normal range of motion. Comments: Atraumatic, moves all extremities spontaneously Neurological: Mental Status: He is alert. Mental status is at baseline. Comments: Awake Psychiatric: Behavior: Behavior normal. Ananda Coma Scale Score: 15 ED Course & MDM - Assessment: 64 y.o. male presents to ED with complaint of abdominal pain. It should be noted that the chronic conditions includes pancreatic adenocarcinoma, which currently is not at goal therapy. This complicates the clinical picture because it Comorbidities: may be exacerbating symptoms and increases the risk for morbidity Differential Diagnosis: Pancreatitis, pancreatic mass, biliary obstruction, cholecystitis, cholelithiasis, among others In order to fully explore the differential diagnosis the following treatments and tests were ordered: ED Medication Administration from 01/01/2025 1612 to 01/02/2025 0300 Date/Time Order Dose Route Action 01/01/2025 1752 EDT HYDROmorphone (Dilaudid) injection 0.5 mg 0.5 mg Intravenous Given 01/01/2025 175 EDT lactated Ringer's infusion 1,000 mL 1,000 mL Intravenous New Bag 01/01/2025 175 EDT ondansetron (Zofran) injection 4 mg 4 mg Intravenous Given 01/01/2025 1851 EDT iohexol (OMNIPaque) 300 MG/ML injection 100 mL 100 mL Intravenous Given 01/01/20252042 EDT HYDROmorphone (Dilaudid) injection 0.5 mg 0.5 mg Intravenous Given 01/01/20252044 EDT lactated Ringer's infusion 1,000 mL 0 mL Intravenous Stopped All Other Orders Ordered Status Ordering Provider 01/02/25 030 CBC and Differential Morning draw Acknowledged ITA, RE01/02/25 030 Comprehensive metabolic panel Morning draw Acknowledged ITA, RE01/02/25 030 Magnesium, Plasma Morning draw Acknowledged ITA, RE01/02/25 030 Vital Signs Every 4 hours Placed in And Linked Group Acknowledged ITA, RE01/02/25 030 Pulse Oximetry Every 4 hours Placed in And Linked Group Acknowledged ITA, RE01/02/25 030 Do Not Give Nicotine Replacement Until discontinued Acknowledged ITA, RE01/02/25 030 DNR / DNI Continuous Acknowledged ITA, 01/02/25 030 Adult diet Diet texture: Clear liquid Diet effective now Acknowledged ITA, RE01/02/25 030 Reason for no VTE Prophylaxis - hospital admission - medications Once Completed ITA, REIDIS 01/02/25 030 Admit to inpatient Once Acknowledged ITA, REIDIS 01/02/25 0300 Mobility Orders Until discontinued Acknowledged ITA, 01/02/25 030 Notify physician (specify parameters) Until discontinued Acknowledged ITA, RE01/02/25 030 Insert peripheral IV Once Placed in And Linked Group Acknowledged ITA, 01/02/25 030 Saline lock IV Once Placed in And Linked Group Acknowledged ITA, RE01/02/25 0139 Consult to Hospital Medicine Once Specialty: Internal Medicine Provider: (Not yet assigned) Completed GUI REESE 01/01/25 1837 STAT Canceled DANNA MIGUEL 01/01/25 1715 Lipase STAT Final result KENDALL SHELTON 01/01/25 1715 CBC w/diff STAT Final result KENDALL SHELTON 01/01/25 1715 Bilirubin, direct STAT Final result KENDALL SHELTON 01/01/25 1715 CMP STAT Final result KENDALL SHELTON 01/01/25 1715 Insert peripheral IV Once Acknowledged KENDALL SHELTON 01/01/[address] Abdomen Pelvis w IV Contrast Once Final result KENDALL SHELTON ED Course as of 01/02/25 1036 TueJan 01, 2025 1838 Upon my initial evaluation patient is tachycardic but otherwise hemodynamically stable, nontoxic appearing, jaundice with scleral icterus on exam, resting comfortably in the bed in no acute distress. He does have generalized abdominal tenderness noted on my examination but it no peritonitic signs. We will obtain imaging and labs for further analysis of his symptoms. [EM] 1838 CMP(!) Bilirubin noted to be acutely more elevated compared to 6 days prior with increased alk phos and LFTs. [EM] TueJan 02, 2025 1035 My initial concern was biliary obstruction from patient's known pancreatic mass. CT imaging was ordered and performed. I did personally reviewed the CT scan where I did not see any pneumoperitoneum. However the final radiology read was pending at the time of sign-out to rule out surgical pathology in the abdomen. Please see transfer of care note for final disposition [EM] ED Course User Index [EM] Danna Miguel MD Clinical Impressions as of 01/02/25 1036 Epigastric pain Biliary obstruction Social Determinates of Health Risks (including Economic Stability, Education and level of understanding, Healthcare access and quality and concerning social factors): Lives far away Ultimately, this patient was was signed out to the [facility] (Signed Out) Patient care assumed by oncoming provider, Hugh, at shift change, tentative plan at the time of sign-out was pending CT ED Prescriptions None Disposition Admit Admitting/Attending Physician: CIRO FORBES [[id number]] Provider Care Team: MONIKA MELISSA 13 [[id number]] Are they the primary team?: Yes [1] - 01/02/2025, 10:36 AM Scribe Attestation: This note was dictated to me, Michael Medellin, acting as a scribe for Dr. Denis Shelton M.D. Attending Attestation: This documentation was recorded by Michael Medellin acting as a scribe in my presence at the time of the encounter and accurately reflects the service I personally performed and thedecisions made by me. [1] Past Medical History: Diagnosis Date A-fib (CMS/HCC) CHF (congestive heart failure) (CMS/HCC) Coronary artery disease Hypertension Lower back pain Numbness and tingling of both feet Spinal stenosis of lumbar region with neurogenic claudication 11/20/2021 Added automatically from request for surgery [id number] [2] Past Surgical History: Procedure Laterality Date [...] Atorvastatin Hallucinations Happens with brand name only Danna Miguel MD Resident 01/02/25 1036 Cosigned by Alonso Walton MD at 01/02/2025 2:40 PM EDT Associated attestation - Alonso Walton MD - 01/02/2025 2:40 PM EDT I saw and evaluated the patient with the resident/fellow. I discussed the case with the resident/fellow and agree with the findings and plan as documented. This patient was turned over at shift change in stable condition with worsening obstructive jaundice and pancreatitis and known adenocarcinoma of the pancreas, and will likely requiring admission. * ED Triage Notes - Sherie Luna RN - 01/01/2025 4:12 PM EDT Patient presents with increase in abdominal pain. Hx of pancreatic cancer, PCP concerned for blockage. * Progress Notes - Gui Reese MD - 01/01/2025 4:12 PM EDT Images from the original note were not included. ED TRANSFER OF CARE NOTE Transferring provider: Lamont Gaming attending: Isabelle ROSA ISELA Time: 2199 I received sign-out and accepted care of this patient from the previous ED providers caring for this patient. I reviewed the patient's history, exam, work- up, and treatment plan up to this point. Please see the primary ED Provider Note for complete elements of the history, physical exam, and ED course. PERTINENT HISTORY: In brief, Guanako Brock is a 64 y.o. male with relevant PMH pancreatic cancerwho presented to the ED for evaluation of abdominal pain, nausea, vomiting, worsening t bili elevation. PENDING: I accepted care of this patient from the previous provider pending imaging results. Ultimately, imaging demonstrated the following findings: known pancreatic cancer, no evidence of obvious duct obstruction or dilation. ED Medication Administration from 01/01/2025 1612 to 01/02/2025 0208 Date/Time Order Dose Route Action 01/01/2025 1752 EDT HYDROmorphone (Dilaudid) injection 0.5 mg 0.5 mg Intravenous Given 01/01/2025 175 EDT lactated Ringer's infusion 1,000 mL 1,000 mL Intravenous New Bag 01/01/2025 175 EDT ondansetron (Zofran) injection 4 mg 4 mg Intravenous Given 01/01/2025 1851 EDT iohexol (OMNIPaque) 300 MG/ML injection 100 mL 100 mL Intravenous Given 01/01/20252042 EDT HYDROmorphone (Dilaudid) injection 0.5 mg 0.5 mg Intravenous Given 01/01/20252044 EDT lactated Ringer's infusion 1,000 mL 0 mL Intravenous Stopped ED COURSE: ED Course as of 01/02/25 1723 Tue Jan 01, 2025 1838 Upon my initial evaluation patient is tachycardic but otherwise hemodynamically stable, nontoxic appearing, jaundice with scleral icterus on exam, resting comfortably in the bed in no acute distress. He does have generalized abdominal tenderness noted on my examination but it no peritonitic signs. We will obtain imaging and labs for further analysis of his symptoms. [EM] 1839 CMP(!) Bilirubin noted to be acutely more elevated compared to 6 days prior with increased alk phos and LFTs. [EM] TueJan 02, 2025 1035 My initial concern was biliary obstruction from patient's known pancreatic mass. CT imaging was ordered and performed. I did personally reviewed the CT scan where I did not see any pneumoperitoneum. However the final radiology read was pending at the time of sign-out to rule out surgical pathology in the abdomen. Please see transfer of care note for final disposition [EM] ED Course User Index [EM] Danna Miguel MD Clinical Impressions as of 01/02/25 1723 Epigastric pain Biliary obstruction Dispo: admit to ED Prescriptions None Disposition Admit - Gui Reese MD Cosigned by Cristo Foley DO at 01/03/2025 3:57 PM EDT Associated attestation - Cristo Foley DO - 01/03/2025 3:57 PM EDT Seen by resident only. documented in this encounter Plan of Treatment Scheduled Orders Name Type Priority Associated Diagnoses Orde r Schedule XR Abdomen 1 View Imaging Routine Pancreatic mass Expected: 01/17/2025 (Approximate), Expires: 07/07/2026 ERCP Endoscopy Routine Pancreatic mass Expected: 01/03/2025, Expires: 07/07/2026 Scheduled Referrals Name Type Priority Associated Diagnoses Order Schedule Ambulatory referral to External PCP Outpatient Referral Routine Epigastric pain Biliary obstruction Pancreatic mass 1 Occurrences starting 01/03/2025 until 07/07/2026 Ambulatory referral to Gastroenterology Outpatient Referral Routine Epigastric pain Biliary obstruction Pancreatic mass Expected: 01/03/2025 (Approximate), Expires: 07/07/2026 documented as of this encounter Procedures Procedure Name Priority Date/Time Associated Diagnosis Comments CBC WITH AUTO DIFFERENTIAL Routine 01/03/2025 1:04 AM EDT PHOSPHORUS, PLASMA Routine 01/03/2025 1: 04 AM EDT MAGNESIUM, PLASMA Routine 01/03/2025 1:0 4 AM EDT COMPREHENSIVE METABOLIC PANEL, PLASMA Routine 01/03/2025 1:04 AM EDT ERCP Routine 01/02/2025 5:33 PM EDT Biliary obstruction FL ERC Routine 01/02/2025 5:32 PM EDT Biliary obstruction POTASSIUM, PLASMA Routine 01/02/2025 4:1 2 AM EDT CBC WITH AUTO DIFFERENTIAL STAT 01/01/2025 8:45 PM EDT LIPASE, PLASMA STAT 01/01/2025 8:[address] ABDOMEN PELVIS W IV CONTRAST STAT 01/01/2025 6:57 PM EDT CONJUGATED BILIRUBIN, PLASMA STAT 01/01/2025 5:24 PM EDT COMPREHENSIVE METABOLIC PANEL, PLASMA STAT 01/01/2025 5:24 PM EDT documented in this encounter Results * Phosphorus (01/03/2025 1:04 AM EDT) Phosphorus, Plasma 3.7 2.5 - 4.5 mg/dL 01/03/2025 1:59 AM EDT [facility] Blood Venous blood specimen / Unknown Venipuncture / Unknown 01/03/2025 1:04 AM EDT 01/03/2025 1:31 AM EDT us Ciro Forbes MD LAB BLOOD ORDERABLES Final Resul t Performing Organization Address City/[facility]/ZIP Co de Phone Number [facility] [address] [place] [address] * Magnesium, Plasma (01/03/2025 1:04 AM EDT) Magnesium, Plasma 1.9 1.9 - 2.4 mg/dL 01/03/2025 1:59 AM EDT [facility] Blood Venous blood specimen / Unknown Venipuncture / Unknown 01/03/2025 1:04 AM EDT 01/03/2025 1:31 AM EDT us Ciro Forbes MD LAB BLOOD ORDERABLES Final Resul t Performing Organization Address [facility] Co de Phone Number [facility] [address] [place] [address] * (ABNORMAL) Comprehensive metabolic panel (01/03/2025 1:04 AM EDT) Glucose, Plasma 115(H) 74 - 99 mg/dL 01/03/2025 1:59 AM EDT [facility] BUN, Plasma 10 8 - 23 mg/dL 01/03/2025 1:59 AM EDT [facility] Creatinine, Plasma 0.98 0.70 - 1.20 mg/dL 01/03/2025 1:59 AM EDT [facility] BUN/Creatinine Ratio 10 01/03/2025 1:59 AM EDT [facility] Sodium, Plasma 140 136 - 145 mmol/L 01/03/2025 1:59 AM EDT [facility] Potassium, Plasma 4.1 3.6 - 4.9 mmol/L 01/03/2025 1:59 AM EDT [facility] Chloride, Plasma 103 97 - 107 mmol/L 01/03/2025 1:59 AM EDT [facility] CO2, Plasma 23 22 - 29 mmol/L 01/03/2025 1:59 AM EDT [facility] Anion Gap 14 6 - 16 mmol/L 01/03/2025 1:59 AM EDT [facility] Total Calcium, Plasma 8.6(L) 8.9 - 10.2 mg/dL 01/03/2025 1:59 AM EDT [facility] Total Protein 5.7(L) 6.3 - 7.9 g/dL 01/03/2025 1:59 AM EDT [facility] Albumin, Plasma 3.3(L) 3.5 - 5.2 g/dL 01/03/2025 1:59 AM EDT [facility] AST, Plasma 78(H) 10 - 50 U/L 01/03/2025 1:59 AM EDT [facility] ALT, Plasma 219(H) 10 - 50 U/L 01/03/2025 1:59 AM EDT [facility] Alkaline Phosphatase, Plasma 278(H) 40 - 115 U/L 01/03/2025 1:59 AM EDT [facility] Total Bilirubin, Plasma 6.3(H) 0.2 - 1.1 mg/dL 01/03/2025 1:59 AM EDT [facility] eGFRcr 86.1 mL/min/1.7 3m*2 01/03/2025 1:59 AM EDT [facility] Comment:Reported eGFRcr in m L/min/1.73m2 is based the CKD-EPI 2020 equation that does not use a race coefficient. Blood Venous blood specimen / Unknown Venipuncture / Unknown 01/03/2025 1:04 AM EDT 01/03/2025 1:31 AM EDT Ciro Forbes MD LAB BLOOD ORDERABLES Final Resul t [facility] [address] [place] [address] * (ABNORMAL) CBC and Differential (01/03/2025 1:04 AM EDT) WBC Count 9.38 3.70 - 10.30 10*3/uL LAB HEMATOLOGY METHOD 01/03/2025 1:39 AM EDT [facility] RBC Count 5.65 4.60 - 6.10 10*6/uL LAB HEMATOLOGY METHOD 01/03/2025 1:39 AM EDT [facility] HGB 16.2 13.7 - 17.5 g/dL LAB HEMATOLOGY METHOD 01/03/2025 1:39 AM EDT [facility] HCT 49.9 40.0 - 51.0 % LAB HEMATOLOGY METHOD 01/03/2025 1:39 AM EDT [facility] Platelet Count 230 155 - 369 10*3/uL LAB HEMATOLOGY METHOD 01/03/2025 1:39 AM EDT [facility] MCV 88 79 - 98 fL LAB HEMATOLOGY METHOD 01/03/2025 1:39 AM EDT [facility] MCH 28.7 26.0 - 32.0 pg LAB HEMATOLOGY METHOD 01/03/2025 1:39 AM EDT [facility] MCHC 32.5 30.7 - 35.5 g/dL LAB HEMATOLOGY METHOD 01/03/2025 1:39 AM EDT [facility] RDW 19.6(H) 11.5 - 14.5 % LAB HEMATOLOGY METHOD 01/03/2025 1:39 AM EDT [facility] MPV 10.8 8.8 - 12.5 fL LAB HEMATOLOGY METHOD 01/03/2025 1:39 AM EDT [facility] nRBC 0.0 <=0.0 per 100 WBCs LAB HEMATOLOGY METHOD 01/03/2025 1:39 AM EDT [facility] Differential Type Automated LAB HEMATOLOGY METHOD 01/03/2025 1:39 AM EDT [facility] Neutrophils % 83 % LAB HEMATOLOGY METHOD 01/03/2025 1:39 AM EDT [facility] Lymphocytes % 11 % LAB HEMATOLOGY METHOD 01/03/2025 1:39 AM EDT [facility] Monocytes % 5 % LAB HEMATOLOGY METHOD 01/03/2025 1:39 AM EDT [facility] Eosinophils % 1 % LAB HEMATOLOGY METHOD 01/03/2025 1:39 AM EDT [facility] Basophils % 0 % LAB HEMATOLOGY METHOD 01/03/2025 1:39 AM EDT [facility] Immature Granulocytes % 0 % LAB HEMATOLOGY METHOD 01/03/2025 1:39 AM EDT [facility] Neutrophils Absolute 7.83(H) 1.60 - 6.10 10*3/uL LAB HEMATOLOGY METHOD 01/03/2025 1:39 AM EDT [facility] Lymphocytes Absolute 1.00(L) 1.20 - 3.90 10*3/uL LAB HEMATOLOGY METHOD 01/03/2025 1:39 AM EDT [facility] Monocytes Absolute 0.42 0.30 - 0.90 10*3/uL LAB HEMATOLOGY METHOD 01/03/2025 1:39 AM EDT [facility] Eosinophils Absolute 0.06 0.00 - 0.50 10*3/uL LAB HEMATOLOGY METHOD 01/03/2025 1:39 AM EDT [facility] Basophils Absolute 0.04 0.00 - 0.10 10*3/uL LAB HEMATOLOGY METHOD 01/03/2025 1:39 AM EDT [facility] Immature Granulocytes Absolute 0.03 0.00 - 0.06 10*3/uL LAB HEMATOLOGY METHOD 01/03/2025 1:39 AM EDT [facility] Blood Venous blood specimen / Unknown Venipuncture / Unknown 01/03/2025 1:04 AM EDT 01/03/2025 1:31 AM EDT Narrative [facility] - 01/03/2025 1:39 AM EDT Therapeutic decision making should be based on absolute values, rather than percentages. us Ciro Forbes MD LAB BLOOD ORDERABLES Final Resul t [facility] [address] [place] [address] * ERCP (01/02/2025 5:33 PM EDT) Anatomical Region Laterality Modality Endoscopy Narrative 01/02/2025 6:36 PM EDT Table formatting from the original result was not included. Impression Prior to ERCP, diagnostic EGD was performed with standard gastroscope. This showed some mild gastritis in the stomach. The common bile duct and pancreatic duct were cannulated by employing a double guidewire technique. Partial major papilla sphincterotomy was performed. A cholangiogram was performed using a balloon occlusion technique. I personally interpreted the bile duct images. Mild intrahepatic dilation of the bile ducts. Distal CBD compressed by ~4cm pancreas mass. Multiple sweeps were performed in the common bile duct. Sludge and debris were removed. One 10 Fr x 7 cm double pigtail stent was placed in the common hepatic duct One 5 Fr x 3 cm double pigtail stent was placed in the pancreatic duct Post Procedure Diagnosis None Recommendations Other Return to previous room and level of care Liquid diet for the next 4 hrs. If tolerating liquid diet without pain over the next 4 hrs., may resume previous diet later today. Watch for pancreatitis, bleeding, perforation, and cholangitis. Will need an x-ray KUB in 2 weeks to check for presence of pancreatic stent. If pancreatic stent still present will need an EGD. Repeat ERCP in ~12 weeks for biliary stent removal, possible replacement, possible other interventions Plan further PDAC treatment with surgery, oncology Indication Biliary obstruction Medications See anesthesia record for anesthesia administered medications. Staff Staff Role Vasiliy Rodriguez, RN Endo Nurse Guanako Collins, Beverly Camargo CRNA, Iglesia Kumar CRNA Endo Erp Project Manager Shahbaz [place] MD Anesthesiologist Zoe [place] MD Proceduralist Kyler Mo MD Proceduralist Jillian Quevedo Endo Erp Project Manager Preprocedure A history and physical has been [...] to the second part of the duodenum. The patient's estimated blood loss was minimal. The procedure was not difficult. The patient tolerated the procedure well. Fluoroscopy was administered by Radiology staff. Attestation I personally performed the entire procedure Specimens No specimens were documented in this log. Implants Implants Implant Type Site Status Size Editing User STENT BILIARY 3.3 X 70MM - [id number] Bile Duct Implanted INTERFACE, SUPPLY USAGE IN [facility] 5FR X 3CM - [id number] Pancreas Implanted INTERFACE, SUPPLY USAGE IN Findings Prior to ERCP, diagnostic EGD was performed with standard gastroscope. This showed some mild gastritis in the stomach. The major papilla was kashia. The common bile duct and pancreatic duct were deeply cannulated using a traction sphincterotome with 0.025 straight guidewire by employing a double guidewire technique. Cannulation was not difficult and no bleeding was observed. Partial major papilla sphincterotomy was performed using a sphincterotome. No bleeding was noted at the procedure site. A cholangiogram was performed using a balloon occlusion technique. I personally interpreted the bile duct images. Mild intrahepatic dilation of the bile ducts. Distal CBD compressed by ~4cm pancreas mass. Multiple sweeps were performed in the common bile duct using a balloon. Sludge and debris were removed, achieving complete clearance. One 10 Fr x 7 cm double pigtail plastic stent was placed successfully in the common hepatic duct. One 5 Fr x 3 cm double pigtail plastic stent was placed successfully in the pancreatic duct. us Ciro Forbes MD GI PROCEDURE ORDERABLES Final Re sult * FL ERC (01/02/2025 5:32 PM EDT) Narrative IMAGING - 01/02/2025 6:33 PM EDT Images were obtained for surgical purposes. See Jillian Aldrich's surgical note in the patient's chart for the findings. us Ciro Forbes MD IMG FLUOROSCOPY PROCEDURES Final Result IMAGING * Potassium (01/02/2025 4:12 AM EDT) Pathologist [facility] Potassium, Plasma 3.8 3.6 - 4.9 mmol/L 01/02/2025 4:58 AM EDT [facility] Blood Venous blood specimen / Unknown Venipuncture / Unknown 01/02/2025 4:12 AM EDT 01/02/2025 4:35 AM EDT us Ciro Forbes MD LAB BLOOD ORDERABLES Final Resul t [facility] [address] [place] [address] * (ABNORMAL) CBC w/diff (01/01/2025 8:45 PM EDT) WBC Count 7.95 3.70 - 10.30 10*3/uL LAB HEMATOLOGY METHOD 01/01/2025 8:54 PM EDT [facility] RBC Count 5.25 4.60 - 6.10 10*6/uL LAB HEMATOLOGY METHOD 01/01/2025 8:54 PM EDT [facility] HGB 15.6 13.7 - 17.5 g/dL LAB HEMATOLOGY METHOD 01/01/2025 8:54 PM EDT [facility] HCT 45.2 40.0 - 51.0 % LAB HEMATOLOGY METHOD 01/01/2025 8:54 PM EDT [facility] Platelet Count 218 155 - 369 10*3/uL LAB HEMATOLOGY METHOD 01/01/2025 8:54 PM EDT [facility] MCV 86 79 - 98 fL LAB HEMATOLOGY METHOD 01/01/2025 8:54 PM EDT [facility] MCH 29.7 26.0 - 32.0 pg LAB HEMATOLOGY METHOD 01/01/2025 8:54 PM EDT [facility] MCHC 34.5 30.7 - 35.5 g/dL LAB HEMATOLOGY METHOD 01/01/2025 8:54 PM EDT [facility] RDW 19.9(H) 11.5 - 14.5 % LAB HEMATOLOGY METHOD 01/01/2025 8:54 PM EDT [facility] MPV 11.4 8.8 - 12.5 fL LAB HEMATOLOGY METHOD 01/01/2025 8:54 PM EDT [facility] nRBC 0.0 <=0.0 per 100 WBCs LAB HEMATOLOGY METHOD 01/01/2025 8:54 PM EDT [facility] Differential Type Automated LAB HEMATOLOGY METHOD 01/01/2025 8:54 PM EDT [facility] Neutrophils % 71 % LAB HEMATOLOGY METHOD 01/01/2025 8:54 PM EDT [facility] Lymphocytes % 19 % LAB HEMATOLOGY METHOD 01/01/2025 8:54 PM EDT [facility] Monocytes % 7 % LAB HEMATOLOGY METHOD 01/01/2025 8:54 PM EDT [facility] Eosinophils % 2 % LAB HEMATOLOGY METHOD 01/01/2025 8:54 PM EDT [facility] Basophils % 1 % LAB HEMATOLOGY METHOD 01/01/2025 8:54 PM EDT [facility] Immature Granulocytes % 0 % LAB HEMATOLOGY METHOD 01/01/2025 8:54 PM EDT [facility] Neutrophils Absolute 5.63 1.60 - 6.10 10*3/uL LAB HEMATOLOGY METHOD 01/01/2025 8:54 PM EDT [facility] Lymphocytes Absolute 1.54 1.20 - 3.90 10*3/uL LAB HEMATOLOGY METHOD 01/01/2025 8:54 PM EDT [facility] Monocytes Absolute 0.53 0.30 - 0.90 10*3/uL LAB HEMATOLOGY METHOD 01/01/2025 8:54 PM EDT [facility] Eosinophils Absolute 0.18 0.00 - 0.50 10*3/uL LAB HEMATOLOGY METHOD 01/01/2025 8:54 PM EDT [facility] Basophils Absolute 0.05 0.00 - 0.10 10*3/uL LAB HEMATOLOGY METHOD 01/01/2025 8:54 PM EDT [facility] Immature Granulocytes Absolute 0.02 0.00 - 0.06 10*3/uL LAB HEMATOLOGY METHOD 01/01/2025 8:54 PM EDT [facility] Blood Venous blood specimen / Unknown Venipuncture / Unknown 01/01/2025 8:45 PM EDT 01/01/2025 8:48 PM EDT Narrative [facility] - 01/01/2025 8:54 PM EDT Therapeutic decision making should be based on absolute values, rather than percentages. Kendall Shelton MD LAB BLOOD ORDERABLES Final Result [facility] [address] [place] [address] * (ABNORMAL) Lipase (01/01/2025 8:45 PM EDT) Lipase, Plasma 474(H) 19 - 63 U/L 01/01/2025 9:20 PM EDT [facility] Blood Venous blood specimen / Unknown Venipuncture / Unknown 01/01/2025 8:45 PM EDT 01/01/2025 8:48 PM EDT Kendall Shelton MD LAB BLOOD ORDERABLES Final Result [facility] [address] [place] [address] * CT Abdomen Pelvis w IV Contrast (01/01/2025 6:57 PM EDT) Anatomical Region Laterality Modality Abdomen, Pelvis Computed Tomogra phy Impressions 01/02/2025 12:21 AM EDT Redemonstration of pancreatic head mass which is similar in appearance to the prior examination and would be concerning for underlying adenocarcinoma. Essentially unchanged mild intra and extrahepatic biliary dilatation and mild proximal pancreatic ductal dilatation. No definite acute findings within the abdomen and pelvis. Chronic findings as described above. CRITICAL RESULT: No. COMMUNICATION: Per this written report. Drafted by Beverly Guzmán MD on 01/01/2025 11:59 PM Final report signed by Beverly Guzmán MD on 01/02/2025 12:21 AM Narrative 01/02/2025 12:21 AM EDT CLINICAL INDICATION: Abdominal pain, acute, nonlocalized. Per EMR, patient with history of pancreatic cancer. TECHNIQUE: Imaging of the abdomen and pelvis was performed, from lung bases through pubic symphysis, using spiral technique, following administration of IV contrast, Omnipaque 300, 100 mL. Delayed (excretory phase) images were performed through the kidneys. Reformatted images in the coronal and sagittal planes were generated from the axial data set to facilitate diagnostic accuracy. Total DLP (Dose-Length Product): 451.61 mGy.cm. Please note: The reported value represents the total of one or more individual components during the CT acquisition on this date and at this time, and as such, the same value may appear in more than one CT report depending on the interpreting/reporting physicians. COMPARISON: 7 days prior. MRCP December 06, 2024. FINDINGS: Lung Bases: Bibasilar atelectasis. Mild cardiomegaly. Coronary artery disease is suspected coronary artery stents. Liver/Gallbladder/Biliary system: The liver demonstrates homogeneous enhancement. Slight distention of the gallbladder. No definite gallstones. Unchanged mild intra and extrahepatic biliary dilatation. Spleen: The spleen enhances homogeneously. Pancreas: Redemonstration of ill-defined mass within the head of the pancreas which measures at least 4.5 cm. There is borderline dilatation of the proximal pancreatic duct. Adrenals: Unchanged 3.5 cm lesion within the right adrenal gland and 3.5 cm lesion within the left adrenal gland which were most consistent with lipid rich adenomas on the prior MRI.. Kidneys: The kidneys demonstrate symmetric nephrogram and excretion. No renal or ureteral calculi. No hydronephrosis. Bowel/Mesentery: The small bowel loops are not dilated. The large bowel loops are not dilated. The appendix is visualized and normal. Colonic diverticula without evidence of acute diverticulitis. Vessels/Lymph Nodes: Diffuse atherosclerotic changes abdominal aorta and bilateral iliacs. Atherosclerotic plaque is causing minimal narrowing of the origin of the common hepatic artery. There is also minimal narrowing of the origin of the SMA. Ectasia of the infrarenal aorta which measures up to 3.2 cm, unchanged since prior. 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 No lymphadenopathy within the abdomen or pelvis. Fluid Survey: No free fluid in the abdomen. No free fluid in the pelvis. Pelvis: Mild prostatomegaly. Body Wall: Normal. Bones: No acute fracture. Patient status post prior L3-S1 posterior fusion with associated L4 and L5 laminectomies. Unchanged mild retrolisthesis of L2 on L3. Multilevel degenerative changes of the spine. Procedure Note True, Beverly Agarwal MD - 01/02/2025 CLINICAL INDICATION: Abdominal pain, acute, nonlocalized. Per EMR, patient with history ofpancreatic cancer. TECHNIQUE: Imaging of the abdomen and pelvis was performed, from lung bases throughpubic symphysis, using spiral technique, following administration of IVcontrast, Omnipaque 300, 100 mL. Delayed (excretory phase) images wereperformed through the kidneys. Reformatted images in the coronal andsagittal planes were generated from the axial data set to facilitatediagnostic accuracy. Total DLP (Dose-Length Product): 451.61 mGy.cm. Please note: The reportedvalue represents the total of one or more individual components during theCT acquisition on this date and at this time, and as such, the same valuemay appear in more than one CT report depending on theinterpreting/reporting physicians. COMPARISON: 7 days prior. MRCP December 06, 2024. FINDINGS: Lung Bases: Bibasilar atelectasis. Mild cardiomegaly. Coronary arterydisease is suspected coronary artery stents. Liver/Gallbladder/Biliary system: The liver demonstrates homogeneousenhancement. Slight distention of the gallbladder. No definite gallstones.Unchanged mild intra and extrahepatic biliary dilatation. Spleen: The spleen enhances homogeneously. Pancreas: Redemonstration of ill-defined mass within the head of thepancreas which measures at least 4.5 cm. There is borderline dilatation ofthe proximal pancreatic duct. Adrenals: Unchanged 3.5 cm lesion within the right adrenal gland and 3.5cm lesion within the left adrenal gland which were most consistent withlipid rich adenomas on the prior MRI.. Kidneys: The kidneys demonstrate symmetric nephrogram and excretion. Norenal or ureteral calculi. No hydronephrosis. Bowel/Mesentery: The small bowel loops are not dilated. The large bowelloops are not dilated. The appendix is visualized and normal. Colonicdiverticula without evidence of acute diverticulitis. Vessels/Lymph Nodes: Diffuse atherosclerotic changes abdominal aorta andbilateral iliacs. Atherosclerotic plaque is causing minimal narrowing ofthe origin of the common hepatic artery. There is also minimal narrowingof the origin of the SMA. Ectasia of the infrarenal aorta which measuresup to 3.2 cm, unchanged since prior. Unchanged occlusion of the right deepfemoral artery just past its origin.. No lymphadenopathy within theabdomen or pelvis. Fluid Survey: No free fluid in the abdomen. No free fluid in the pelvis. Pelvis: Mild prostatomegaly. Body Wall: Normal. Bones: No acute fracture. Patient status post prior L3-S1 posterior fusionwith associated L4 and L5 laminectomies. Unchanged mild retrolisthesis ofL2 on L3. Multilevel degenerative changes of the spine. IMPRESSION: Redemonstration of pancreatic head mass which is similar in appearance tothe prior examination and would be concerning for underlyingadenocarcinoma. Essentially unchanged mild intra and extrahepatic biliary dilatation andmild proximal pancreatic ductal dilatation. No definite acute findings within the abdomen and pelvis. Chronic findings as described above. CRITICAL RESULT: No. COMMUNICATION: Per this written report. Drafted by Beverly Guzmán MD on 01/01/2025 11:59 PM Final report signed by Beverly Guzmán MD on 01/02/2025 12:21 AM us Kendall Shelton MD IMG CT PROCEDURES Final Res ult * (ABNORMAL) Bilirubin, direct (01/01/2025 5:24 PM EDT) Conjugated Bilirubin, Plasma 3.7(H) <=0.3 mg/dL 01/01/2025 6:32 PM EDT [facility] Comment:Hemolyzed, result ma y be falsely decreased. Blood Venous blood specimen / Unknown Venipuncture / Unknown 01/01/2025 5:24 PM EDT 01/01/2025 5:42 PM EDT us Kendall Shelton MD LAB BLOOD ORDERABLES Final Result [facility] [address] [place] [address] * (ABNORMAL) CMP (01/01/2025 5:24 PM EDT) Glucose, Plasma 128(H) 74 - 99 mg/dL 01/01/2025 6:32 PM EDT [facility] BUN, Plasma 11 8 - 23 mg/dL 01/01/2025 6:32 PM EDT [facility] Creatinine, Plasma 0.83 0.70 - 1.20 mg/dL 01/01/2025 6:32 PM EDT [facility] BUN/Creatinine Ratio 13 01/01/2025 6:32 PM EDT [facility] Sodium, Plasma 136 136 - 145 mmol/L 01/01/2025 6:32 PM EDT [facility] Potassium, Plasma 5.9(H) 3.6 - 4.9 mmol/L 01/01/2025 6:32 PM EDT [facility] Comment:Hemolyzed, result ma y be falsely increased. Chloride, Plasma 104 97 - 107 mmol/L 01/01/2025 6:32 PM EDT [facility] CO2, Plasma 18(L) 22 - 29 mmol/L 01/01/2025 6:32 PM EDT [facility] Anion Gap 14 6 - 16 mmol/L 01/01/2025 6:32 PM EDT [facility] Total Calcium, Plasma 9.2 8.9 - 10.2 mg/dL 01/01/2025 6:32 PM EDT [facility] Total Protein 6.6 6.3 - 7.9 g/dL 01/01/2025 6:32 PM EDT [facility] Albumin, Plasma 3.5 3.5 - 5.2 g/dL 01/01/2025 6:32 PM EDT [facility] AST, Plasma 210(H) 10 - 50 U/L 01/01/2025 6:32 PM EDT [facility] Comment:Hemolyzed, result ma y be falsely increased. ALT, Plasma 308(H) 10 - 50 U/L 01/01/2025 6:32 PM EDT [facility] Comment:Hemolyzed, result ma y be falsely increased or decreased. Alkaline Phosphatase, Plasma 297(H) 40 - 115 U/L 01/01/2025 6:32 PM EDT [facility] Comment:Hemolyzed, result ma y be falsely decreased. Total Bilirubin, Plasma 8.8(H) 0.2 - 1.1 mg/dL 01/01/2025 6:32 PM EDT [facility] eGFRcr 97.7 mL/min/1.7 3m*2 01/01/2025 6:32 PM EDT [facility] Comment:Reported eGFRcr in m L/min/1.73m2 is based the CKD-EPI 2020 equation that does not use a race coefficient. Blood Venous blood specimen / Unknown Venipuncture / Unknown 01/01/2025 5:24 PM EDT 01/01/2025 5:42 PM EDT us Kendall Shelton MD LAB BLOOD ORDERABLES Final Result [facility] [address] [place] [address] documented in this encounter Visit Diagnoses Diagnosis Biliary obstruction- Primary Obstruction of bile duct Epigastric pain Abdominal pain, epigastric Biliary obstruction Obstruction of bile duct Pancreatic mass Unspecified disease of pancreas documented in this encounter Admitting Diagnoses Diagnosis Biliary obstruction Obstruction of bile duct documented in this encounter Administered Medications Inactive Administered Medications - up to 3 most recent administrations Medication Order MAR Action Action Date Dose Rate Site aspirin chewable tablet 81 mg 81 mg, Oral, Daily, First dose on Tue01/02/25 at 0900, Until Discontinued Given 01/03/2025 8:34 AM EDT 81 mg Given 01/02/2025 8:04 AM EDT 81 mg enoxaparin (Lovenox) syringe 40 mg 40 mg, Subcutaneous, Daily, First dose on Tue01/03/25 at 0900, Until Discontinued, Routine Given 01/03/2025 8:34 AM EDT 40 mg Left Lower Abdomen furosemide (Lasix) tablet 40 mg 40 mg, Oral, Daily, First dose on Tue01/02/25 at 0900, Until Discontinued, Routine Given 01/02/2025 8:03 AM EDT 40 mg gabapentin (Neurontin) capsule 1,200 mg 1,200 mg, Oral, Daily, First dose (after last modification) on Tue01/04/25 at 0900, Until Discontinued, Routine gabapentin (Neurontin) capsule 300 mg 300 mg, Oral, 4 times daily, First dose on Tue01/02/25 at 0900, Until Discontinued, Routine Given 01/03/2025 8:34 AM EDT 300 mg Given 01/02/2025 10:34 PM EDT 300 mg Given 01/02/2025 2:32 PM EDT 300 mg gabapentin (Neurontin) capsule 900 mg 900 mg, Oral, Once, 1 dose, On Tue01/03/25 at 1430, Routine Given 01/03/2025 2:13 PM EDT 900 mg HYDROmorphone (Dilaudid) injection 0.5 mg 0.5 mg, Intravenous, Once, 1 dose, On Tue01/01/25 at 1720, STAT Given 01/01/2025 5:52 PM EDT 0.5 mg HYDROmorphone (Dilaudid) injection 0.5 mg 0.5 mg, Intravenous, Once, 1 dose, On Tue01/01/25 at 2000, Routine Given 01/01/2025 8:43 PM EDT 0.5 mg HYDROmorphone (Dilaudid) injection 0.5 mg 0.5 mg, Intravenous, Every 4 hours PRN, Starting on Tue01/02/25 at 1826, Until Tue01/03/25 at 1030, Routine, moderate pain, use for pain refractory to PO analgesics or if PO is unavailable Given 01/03/2025 12:54 AM EDT 0.5 mg Given 01/02/2025 6:32 PM EDT 0.5 mg HYDROmorphone (Dilaudid) injection 0.5 mg 0.5 mg, Intravenous, Every 4 hours PRN, Starting on Tue01/03/25 at 1029, Until Tue01/03/25 at 1754, Routine, severe pain, use for pain refractory to PO analgesics or if PO is unavailable indomethacin (Indocin) suppository Rectal, As needed, Starting on Tue01/02/25 at 1649, Until Tue01/02/25 at 1733, Routine, Intraprocedure Given 01/02/2025 4:49 PM EDT 100 mg iohexol (OMNIPaque) 300 MG/ML injection 100 mL 100 mL, Intravenous, Once in imaging, 1 dose, Starting on Tue01/01/25 at 1731, Until Tue01/01/25 at 1851, Routine, Imaging Protocol Orders Given 01/01/2025 6:51 PM EDT 100 mL lactated Ringer's infusion 1,000 mL 1,000 mL, Intravenous, Once, 1 dose, On Tue01/01/25 at 1720, STAT New Bag 01/01/2025 5:53 PM EDT 1,000 mL lisinopril tablet 2.5 mg 2.5 mg, Oral, Daily, First dose on Tue01/02/25 at 0900, Until Discontinued, Routine Given 01/02/2025 8:04 AM EDT 2.5 mg metoprolol succinate XL (Toprol-XL) 24 hr tablet 25 mg 25 mg, Oral, Daily, First dose on Tue01/02/25 at 0900, Until Discontinued, Routine Given 01/03/2025 8:34 AM EDT 25 mg Given 01/02/2025 8:03 AM EDT 25 mg ondansetron (Zofran) 4 MG/5ML solution 4 mg 4 mg, Oral, Every 6 hours PRN, Starting on Tue01/02/25 at 0300, Until [place] 01/03/25 at 1754, Routine, nausea, vomiting ondansetron (Zofran) injection 4 mg 4 mg, Intravenous, Once, 1 dose, On Tue01/01/25 at 1720, STAT Given 01/01/2025 5:53 PM EDT 4 mg ondansetron (Zofran) injection 4 mg 4 mg, Intravenous, Every 6 hours PRN, Starting on Tue01/02/25 at 0300, Until Tue01/03/25 at 1754, Routine, vomiting, nausea Given 01/02/2025 6:08 PM EDT 4 mg ondansetron ODT (Zofran-ODT) disintegrating tablet 4 mg 4 mg, Oral, Every 6 hours PRN, Starting on Tue01/02/25 at 0300, Until Tue01/03/25 at 1754, Routine, nausea, vomiting oxyCODONE (Roxicodone) immediate release tablet 10 mg 10 mg, Oral, Every 4 hours PRN, Starting on Tue01/02/25 at 1825, Until Tue01/03/25 at 1754, Routine, moderate pain, severe pain Given 01/03/2025 5:39 AM EDT 10 mg Given 01/02/2025 7:21 PM EDT 10 mg oxyCODONE (Roxicodone) immediate release tablet 5 mg 5 mg, Oral, Every 6 hours PRN, Starting on Tue01/02/25 at 0259, Until Tue01/02/25 at 1826, Routine, moderate pain, severe pain Given 01/02/2025 11:22 AM EDT 5 mg piperacillin-tazobactam (Zosyn) 4.5 g in sodium chloride 0.9% 100 mL IVPB (vial adapter required) 4.5 g, Intravenous, Every 6 hours, First dose on Tue01/02/25 at 1105, Until Discontinued, Routine New Bag 01/03/2025 10:18 AM EDT 4.5 g 36 .7 mL/hr New Bag 01/03/2025 5:39 AM EDT 4.5 g 36.7 mL/hr New Bag 01/02/2025 10:34 PM EDT 4.5 g 36.7 mL/hr polyethylene glycol (Miralax) packet 17 g 17 g, Oral, Daily, First dose on Tue01/02/25 at 0900, Until Discontinued, Routine Given 01/02/2025 8:03 AM EDT 17 g prochlorperazine (Compazine) injection 2.5 mg 2.5 mg, Intravenous, Every 6 hours PRN, Starting on Tue01/02/25 at 1855, Until [place] 01/03/25 at 1754, Routine, nausea, vomiting Given 01/02/2025 7:21 PM EDT 2 .5 mg prochlorperazine (Compazine) injection 5 mg 5 mg, Intramuscular, Every 6 hours PRN, Starting on Tue01/02/25 at 1855, Until [place] 01/03/25 at 1754, Routine, nausea, vomiting prochlorperazine (Compazine) suppository 25 mg 25 mg, Rectal, Every 12 hours PRN, Starting on Tue01/02/25 at 1855, Until [place] 01/03/25 at 1754, Routine, nausea, vomiting prochlorperazine (Compazine) tablet 5 mg 5 mg, Oral, Every 6 hours PRN, Starting on Tue01/02/25 at 1855, Until [place] 01/03/25 at 1754, Routine, nausea, vomiting sodium chloride 0.9 % flush 10 mL 10 mL, Intravenous, Every 12 hours, First dose on Tue01/02/25 at 0305, Until Discontinued, Routine Given 01/03/2025 2:15 PM EDT 10 mL Given 01/03/2025 4:46 AM EDT 10 mL Given 01/02/2025 2:35 PM EDT 10 mL sodium chloride 0.9 % flush 10 mL 10 mL, Intravenous, As needed, Starting on Tue01/02/25 at 0257, Until [place] 01/03/25 at 1754, Routine, line care sodium chloride 0.9 % flush 10 mL 10 mL, Intravenous, Every 12 hours, First dose on Tue01/02/25 at 1625, Until Discontinued, Routine, Holding - Preprocedure Given 01/03/2025 4:46 AM EDT 10 mL Given 01/02/2025 6:24 PM EDT 10 mL sodium chloride 0.9 % flush 10 mL 10 mL, Intravenous, As needed, Starting on Tue01/02/25 at 1623, Until Tue01/03/25 at 1754, Routine, Holding - Preprocedure, line care documented in this encounter Active and Recently Administered Medications Times are shown in EDT. Scheduled Medication Order 01/01/2025 01/02/2025 01/03/2025 aspirin chewable tablet 81 mg 81 mg, Oral, Daily, First dose on Tue01/02/25 at 0900, Until Discontinued 0804 (Given - Provider: Donya Montes RN) 0834 (Given - Provider: Jennifer Olivrea RN) enoxaparin (Lovenox) syringe 40 mg 40 mg, Subcutaneous, Daily, First dose on Tue01/03/25 at 0900, Until Discontinued, Routine 0834 (Given - Provid er: Jennifer Olivera RN) furosemide (Lasix) tablet 40 mg (CANCELED) 40 mg, Oral, Daily, First dose on Tue01/02/25 at 0900, Until Discontinued, Routine 0803 (Given - Provider: Donya Montes RN) gabapentin (Neurontin) capsule 1,200 mg 1,200 mg, Oral, Daily, First dose (after last modification) on Tue01/04/25 at 0900, Until Discontinued, Routine gabapentin (Neurontin) capsule 300 mg (CANCELED) 300 mg, Oral, 4 times daily, First dose on Tue01/02/25 at 0900, Until Discontinued, Routine 0803 (Given - Provider: Donya Montes RN)1432 (Given - Provider: Hortencia Mckeon RN)1833 (Not Given - Provider: Errol Dickson RN - Reason: Patient/family refused - Comment: pt states that he is too nauseous)2234 (Given - Provider: Sammy Sampson RN) 0834 (Given - Provider: Jennifer Olivera RN) gabapentin (Neurontin) capsule 900 mg (COMPLETED) 900 mg, Oral, Once, 1 dose, On Tue01/03/25 at 1430, Routine 1413 (Given - Provid er: Jennifer Olivera RN) HYDROmorphone (Dilaudid) injection 0.5 mg (COMPLETED) 0.5 mg, Intravenous, Once, 1 dose, On Tue01/01/25 at 1720, STAT 1752 (Given - Provider: Morenita Marte RN) HYDROmorphone (Dilaudid) injection 0.5 mg (COMPLETED) 0.5 mg, Intravenous, Once, 1 dose, On Tue01/01/25 at 2000, Routine 2043 (Given - Provider: Lashay Fontaine, RN) iohexol (OMNIPaque) 300 MG/ML injection 100 mL (COMPLETED) 100 mL, Intravenous, Once in imaging, 1 dose, Starting on Tue01/01/25 at 1731, Until Tue01/01/25 at 1851, Routine, Imaging Protocol Orders 1851 (Given - Provider: Radha Michelle) lactated Ringer's infusion 1,000 mL (COMPLETED) 1,000 mL, Intravenous, Once, 1 dose, On Tue01/01/25 at 1720, STAT 1753 (New Bag - Provider: Morenita Marte, KENNETH)204 (Stopped - Provider: Lashay Fontaine RN) lisinopril tablet 2.5 mg (CANCELED) 2.5 mg, Oral, Daily, First dose on Tue01/02/25 at 0900, Until Discontinued, Routine 0804 (Given - Provider: Donya Montes RN) metoprolol succinate XL (Toprol-XL) 24 hr tablet 25 mg 25 mg, Oral, Daily, First dose on Tue01/02/25 at 0900, Until Discontinued, Routine 0803 (Given - Provider: Donya Montes RN) 0834 (Given - Provider: Jennifer Olivera RN) ondansetron (Zofran) injection 4 mg (COMPLETED) 4 mg, Intravenous, Once, 1 dose, On Tue01/01/25 at 1720, STAT 1753 (Given - Provider: Morenita Marte RN) piperacillin-tazobacta m (Zosyn) 4.5 g in sodium chloride 0.9% 100 mL IVPB (vial adapter required) 4.5 g, Intravenous, Every 6 hours, First dose on Tue01/02/25 at 1105, Until Discontinued, Routine 1118 (New Bag - Provider: Hortencia Mckeon RN)1426 (Stopped - Provider: Hortencia Mckeon RN)1833 (New Bag - Provider: Errol Dickson, KENNETH)2234 (New Bag - Provider: Sammy Sampson RN) 0539 (New Bag - Provider: Sammy Sampson RN)1018 (New Bag - Provider: Jennifer Olivera RN)1705 (Canceled Entry - Provider: Automatic Discharge Provider - Comment: Automatically canceled at discontinue of medication order) polyethylene glycol (Miralax) packet 17 g 17 g, Oral, Daily, First dose on Tue01/02/25 at 0900, Until Discontinued, Routine 0803 (Given - Provider: Donya Montes RN) 0835 (Not Given - Provider: Jennifer Olivera RN - Reason: Patient/family refused) sodium chloride 0.9 % flush 10 mL(Linked Group 1) 10 mL, Intravenous, Every 12 hours, First dose on Tue01/02/25 at 0305, Until Discontinued, Routine 0316 [facility]: Lashay Fontaine RN)1435 (Given - Provider: Hortencia Mckeon RN) 0446 (Given - Provider: Sammy Sampson, KENNETH)1415 (Given - Provider: Jennifer Olivera RN) sodium chloride 0.9 % flush 10 mL(Linked Group 2) 10 mL, Intravenous, Every 12 hours, First dose on Tue01/02/25 at 1625, Until Discontinued, Routine, Holding - Preprocedure 1824 (Given - Provider: Errol Dickson RN) 0446 (Given - Provider: Sammy Sampson RN)1625 (Canceled Entry - Provider: Jennifer Olivera RN - Comment: duplicate) PRN Medication Order 01/01/2025 01/02/2025 01/03/2025 HYDROmorphone (Dilaudid) injection 0.5 mg (CANCELED) 0.5 mg, Intravenous, Every 4 hours PRN, Starting on Tue01/02/25 at 1826, Until [place] 01/03/25 at 1030, Routine, moderate pain, use for pain refractory to PO analgesics or if PO is unavailable 1832 (Given - Provider: Errol Dickson RN) 0054 (Given - Provider: Sammy Sampson RN)0835 (Not Given - Provider: Jennifer Olivera RN - Reason: Order parameters not met) HYDROmorphone (Dilaudid) injection 0.5 mg 0.5 mg, Intravenous, Every 4 hours PRN, Starting on [place] 01/03/25 at 1029, Until Tue01/03/25 at 1754, Routine, severe pain, use for pain refractory to PO analgesics or if PO is unavailable indomethacin (Indocin) suppository (CANCELED) Rectal, As needed, Starting on Tue01/02/25 at 1649, Until Tue01/02/25 at 1733, Routine, Intraprocedure 1649 (Given - Provider: Vasiliy Rodriguez RN) ondansetron (Zofran) 4 MG/5ML solution 4 mg(Linked Group 3) 4 mg, Oral, Every 6 hours PRN, Starting on Tue01/02/25 at 0300, Until Tue01/03/25 at 1754, Routine, nausea, vomiting 1808 (See Alternative - Provider: Dieudonne Wolff RN) ondansetron (Zofran) injection 4 mg(Linked Group 3) 4 mg, Intravenous, Every 6 hours PRN, Starting on Tue01/02/25 at 0300, Until [place] 01/03/25 at 1754, Routine, vomiting, nausea 1808 (Given - Provider: Dieudonne Wolff RN) ondansetron ODT (Zofran-ODT) disintegrating tablet 4 mg(Linked Group 3) 4 mg, Oral, Every 6 hours PRN, Starting on Tue01/02/25 at 0300, Until [place] 01/03/25 at 1754, Routine, nausea, vomiting 1808 (See Alternative - Provider: Dieudonne Wolff RN) oxyCODONE (Roxicodone) immediate release tablet 10 mg 10 mg, Oral, Every 4 hours PRN, Starting on Tue01/02/25 at 1825, Until Tue01/03/25 at 1754, Routine, moderate pain, severe pain 1921 (Given - Provider: Sammy Sampson RN) 0539 (Given - Provider: Sammy Sampson RN) oxyCODONE (Roxicodone) immediate release tablet 5 mg (CANCELED) 5 mg, Oral, Every 6 hours PRN, Starting on Tue01/02/25 at 0259, Until Tue01/02/25 at 1826, Routine, moderate pain, severe pain 1122 (Given - Provider: Hortencia Mckeon RN)1840 (Not Given - Provider: Errol Dickson RN - Reason: Order changed) prochlorperazine (Compazine) injection 2.5 mg(Linked Group 4) 2.5 mg, Intravenous, Every 6 hours PRN, Starting on Tue01/02/25 at 1855, Until [place] 01/03/25 at 1754, Routine, nausea, vomiting 1921 (Given - Provider: Sammy Sampson RN) 0835 (Not Given - Provider: Jennifer Olivera RN - Reason: Order parameters not met) prochlorperazine (Compazine) injection 5 mg(Linked Group 4) 5 mg, Intramuscular, Every 6 hours PRN, Starting on Tue01/02/25 at 1855, Until [place] 01/03/25 at 1754, Routine, nausea, vomiting 1921 (See Alternative - Provider: Sammy Sampson RN) 0835 (See Alternative - Provider: Jennifer Olivera RN) prochlorperazine (Compazine) suppository 25 mg(Linked Group 4) 25 mg, Rectal, Every 12 hours PRN, Starting on Tue01/02/25 at 1855, Until [place] 01/03/25 at 1754, Routine, nausea, vomiting 1921 (See Alternative - Provider: Sammy Sampson RN) 0835 (See Alternative - Provider: Jennifer Olivera RN) prochlorperazine (Compazine) tablet 5 mg(Linked Group 4) 5 mg, Oral, Every 6 hours PRN, Starting on Tue01/02/25 at 1855, Until [place] 7 at 1754, Routine, nausea, vomiting 1921 (See Alternative - Provider: Sammy Sampson RN) 0835 (See Alternative - Provider: Jennifer Olivera RN) sodium chloride 0.9 % flush 10 mL(Linked Group 1) 10 mL, Intravenous, As needed, Starting on Tue01/02/25 at 0257, Until [place] 01/03/25 at 1754, Routine, line care sodium chloride 0.9 % flush 10 mL(Linked Group 2) 10 mL, Intravenous, As needed, Starting on Tue01/02/25 at 1623, Until [place] 7/10/25 at 1754, Routine, Holding - Preprocedure, line care Linked Groups Order Group 1: Insert peripheral IV (COMPLETED) Once, On Tue01/02/25 at 0258, For 1 occurrence And Saline lock IV (COMPLETED) Once, On Tue01/02/25 at 0258, For 1 occurrence And sodium chloride 0.9 % flush 10 mLJump to med 10 mL, Intravenous, Every 12 hours, First dose on Tue01/02/25 at 0305, Until Discontinued, Routine And sodium chloride 0.9 % flush 10 mLJump to med 10 mL, Intravenous, As needed, Starting on Tue01/02/25 at 0257, Until [place] 01/03/25 at 1754, Routine, line care Group 2: Insert peripheral IV (COMPLETED) Once, On Tue01/02/25 at 1624, For 1 occurrence, Holding - Preprocedure And Saline lock IV (COMPLETED) Once, On Tue01/02/25 at 1624, For 1 occurrence, Holding - Preprocedure And sodium chloride 0.9 % flush 10 mLJump to med 10 mL, Intravenous, Every 12 hours, First dose on Tue01/02/25 at 1625, Until Discontinued, Routine, Holding - Preprocedure And sodium chloride 0.9 % flush 10 mLJump to med 10 mL, Intravenous, As needed, Starting on Tue01/02/25 at 1623, Until [place] 01/03/25 at 1754, Routine, Holding - Preprocedure, line care Group 3: ondansetron ODT (Zofran-ODT) disintegrating tablet 4 mgJump to med 4 mg, Oral, Every 6 hours PRN, Starting on Tue01/02/25 at 0300, Until [place] 01/03/25 at 1754, Routine, nausea, vomiting Or ondansetron (Zofran) injection 4 mgJump to med 4 mg, Intravenous, Every 6 hours PRN, Starting on Tue01/02/25 at 0300, Until [place] 01/03/25 at 1754, Routine, vomiting, nausea Or ondansetron (Zofran) 4 MG/5ML solution 4 mgJump to med 4 mg, Oral, Every 6 hours PRN, Starting on Tue01/02/25 at 0300, Until Tue01/03/25 at 1754, Routine, nausea, vomiting Group 4: prochlorperazine (Compazine) tablet 5 mgJump to med 5 mg, Oral, Every 6 hours PRN, Starting on Tue01/02/25 at 1855, Until Tue01/03/25 at 1754, Routine, nausea, vomiting Or prochlorperazine (Compazine) suppository 25 mgJump to med 25 mg, Rectal, Every 12 hours PRN, Starting on Tue01/02/25 at 1855, Until Tue01/03/25 at 1754, Routine, nausea, vomiting Or prochlorperazine (Compazine) injection 2.5 mgJump to med 2.5 mg, Intravenous, Every 6 hours PRN, Starting on Tue01/02/25 at 1855, Until Tue01/03/25 at 1754, Routine, nausea, vomiting Or prochlorperazine (Compazine) injection 5 mgJump to med 5 mg, Intramuscular, Every 6 hours PRN, Starting on Tue01/02/25 at 1855, Until Tue01/03/25 at 1754, Routine, nausea, vomiting documented in this encounter Additional Health Concerns Assessment Noted Time A fall risk assessment has been complete d for the patient 03/10/2022 9:47 AM EDT A Body Mass Index follow-up plan has been documented for the patient 01/03/2025 2:46 PM EDT documented as of this encounter Care Teams Aviation [employer] Intelligence Relationship Specialty Start Date End Date Raimundo Chirinos MD [address] [place] [address] [address] [place], [place] [id number] PCP - General 11/18/21 Moiz Mcnally MD [address] [place] [address] Surgeon Neurosurgery 11/18/21 Bridgett Gonzales APRN [address] [place] [address] Nurse Practitioner Neurosurgery 01/07/22 Ynes Rocha LPN [facility] TCM Nurse 12/27/2401/25 Terrance Corral Community Health Worker 12/27/2401/16 documented as of this encounter
--- OUTSIDE RECORDS SUMMARY | 2025-01-02 16:33 | XMS_ITS | Encounter Summary ---
Author Organization [facility] Address [address] [id number] Care Team Providers Care Marine Diesel Technician Name Role Phone Raimundo Chirinos MD Primary Care Provider [phone] Moiz Mncally MD Unavailable [phone] Bridgett Gonzales WATCHGUARD Unavailable [phone] Ynes Rocha TELECOM FIELD TECHNICIAN Unavailable Unavailab Terrance Hdez Unavailable Unavailable Reason for Visit * Auth/Cert (Routine) Specialty Diagnoses / Procedures Referred By Pola black Referred To Contact Diagnoses Biliary obstruction Ciro Ruelas MD [address] [place] [address] Phone: tel: fax: [facility] A Emergency Department [address] [place] [address] Phone: tel: Referral ID Status Reason Start Date Expiration Date Visits Re quested Visits Authorized [id number] 1 1 Encounter Details Date Type Department Care Team (Late st Contact Info) Description 01/02/2025 4:33 PM EDT Anesthesia Event [facility] Endoscopy [address] [place] [address] Shahbaz [place] MD [address] [place] [address] Beverly Esquivel CRNA [address] [place] [address] Anesthesia Record Procedure Summary Procedure [...] opportunity for questions and acknowledgement of understanding. 174 An Stop Meds Name Total Lidocaine HCl [...] Tolerated well; Removal Date: 01/03/25; Removal Time: 145; Removal Reason: Discharge (tip intact) 01/01/25 172 by Pascual Wise 01/03/25 145 by Jennifer Olivera RN ETT Placement Date: [...] Time: 173101/02/25 163 by Beverly Esquivel CRNA 01/02/251731 by Guanako Collins CRNA documented in this [...] were you homeless or living in a fci (including now)? No 01/04/2025 CAGE ASSESSMENT Answer [...] drink first t zeb in the morning (EYE-TRAFFIC ENUMERATOR) to steady your nerves or to get rid of a hangover? 0 12/05/2024 CAGE Questionnaire Score 0 025 Utilities Answer Date Recorded In the past 12 months has th e [employer], gas, oil, or water [employer] threatened to shut off services in your [...] No 01/02/2025 8:00 PM EDT Marcelle Sampson, KENNETH 2. Non-Specific Active Suicidal Thoughts (Past 1 Month) No 01/02/2025 8:00 PM EDT Marcelle Sampson, RN 6. Suicidal Behavior (Lifetime) No 01/02/2025 8:00 PM EDT Marcelle Sampson, RN documented as of this encounter Miscellaneous [...] documented. * Anesthesia Procedure Notes - Beverly Esquivle CRNA - 01/02/2025 4:47 PM EDTAssociated Order(s): Airway Airway Date/Time: 01/02/2025 4:38 PM Reason: elective Airway not difficult General Information and Staff Patient location during procedure: OR NURSING SPECIALIST: Beverly Esquivel CRNA Performed: VANDANA Patient Condition [...] staff entered. Patient: Guanako Brock HPI Guanako Rivasbin is a 64 y.o. male with body mass index is 23.49 kg/m??. who presents with Biliary obstruction, now for ERCP Procedure Information Date/Time: 01/02/25 1430 Scheduled providers: Vasiliy Rodriguez RN; Kyler Mo MD Procedure: ERCP Location: [facility] Endoscopy Relevant Problems Cardio (+) Essential hypertension (+) Paroxysmal A-fib (CMS/HCC) /Renal (+) ELDER (acute kidney injury) (CMS/[facility]) ALLERGIES Allergies[1] NPO STATUS Date of Last [...] 01/01/2025 ABG Lab Results Component Value Date JZZ3PCE 24 12/11/2021 LACTATE 1.2 12/11/2021 Lab Results Component Value Date PH 7.26 (L) 12/11/2021 PCO2 53 (H) 12/11/2021 PO2 274 12/11/2021 [id number] 100.0 (H) 12/11/2021 BASEEXC -4.4 (L) 12/11/2021 [...] Unable to assess diastolic function due to [facility] ytia. There is global hypokinesis of the [...] There is norecent study available for direct dons-fa-sasf comparison. PFTs No results found for: WSK6VPN , XVA6ZVEU , QTA9XSQ , FVCPRED BP Readings from Last 5 [...] is no recent study available for direct jhoe-cl-eqwp comparison. [1] Allergies Allergen Reactions Atorvastatin Hallucinations Happens with brand name only [2] Past Medical History: Diagnosis Date A-fib ([facility]) CHF (congestive heart failure) ([facility]) Coronary artery disease Hypertension Lower back pain Numbness and tingling of both feet Spinal stenosis of lumbar region with neurogenic claudication 11/20/2021 Added automatically from request for surgery [id number] [3] aspirin, 81 mg, Oral, Daily gabapentin, [...] documented in this encounter Plan of Treatment Not on file documented as of this encounter Goals Goal Patient Goal Type Associated Problems Recent Progress Patient-Stated? Author Autogenerat ed Goal Care Plan Autogenerated Problem No Sourav Garrido RN documented as of this encounter Procedures Procedure Name Priority Date/Time Associated Diagnosis Comments PB ANESTHESIA PLACEHOLDER Routine 01/02/2025 4:38 PM EDT MN AN ELECTIVE ENDOTRACHEAL AIRWAY Routine 01/02/2025 4:38 PM EDT documented in this encounter Results * MN AN ELECTIVE ENDOTRACHEAL AIRWAY, PB ANESTHESIA PLACEHOLDER (01/02/2025 4:38 PM EDT) Narrative Beverly Esquivel CRNA - 01/02/2025 4:38 PM EDT Beverly Esquivel CRNA 01/02/2025 4:48 PM Airway Date/Time: 01/02/2025 4:38 PM Reason: elective Airway not difficult General Information and Staff Patient location during procedure: OR NURSING SPECIALIST: Beverly Esquivel CRNA Performed: NURSING SPECIALIST Patient Condition Indications for airway management: anesthesia [...] documented as of this encounter Care Teams Marine Diesel Technician Relationship Specialty Start Date End Date Raimundo Chirinos MD [address] [facility] [address] [place] [address] PCP - General 11/18/21 Moiz Mcnally MD [address] [place] [address] Surgeon Neurosurgery 11/18/21 Bridgett Gonzales APRN [address] [place] [address] Nurse Practitioner Neurosurgery 01/07/22 Ynes Rocha LPN [facility] TCM Nurse 12/27/24 8/ Terrance Corral Community Health Worker 12/27/2401/16 documented as of this encounter
--- OUTSIDE RECORDS SUMMARY | 2025-01-24 08:30 | XMS_ITS | Encounter Summary ---
Author Organization [facility] Address [address] [id number] Care Team Providers Care Beader Name Role Phone Raimundo Chirinos MD Primary Care Provider [phone] Moiz Mcnally MD Unavailable [phone] Bridgett Gonzales LINUX SOLARIS ADMINISTRATOR Unavailable [phone] Ynes Rocha SUPERVISOR DATA PROCESSING Unavailable Unavailab le Reason for Referral * Consultation (Routine) - Authorized Specialty Diagnoses / Procedures Referred By Contac t Referred To Contact Palliative Medicine / Blood and Marrow Transplant Diagnoses Pancreatic adenocarcinoma (CMS/HCC) Mabel Colorado MD [address] [address] Phone: tel: fax: [facility] Cellular [facility] [address] [address] Phone: tel:[phone] fax:[phone] Referral ID Status Reason Start Date Expiration Date Visits Requested Visits Authorized [id number] Authorized Specialty Services Required 01/24/2025 07/26/2026 1 1 Reason for Visit * Reason Comments Consult Pancreatic adeno * Consultation (Routine) - Closed Specialty Diagnoses / Procedures Referred By Contact Referred To Contact Medical Oncology / Hematology and Oncology Diagnoses Malignant neoplasm of pancreas, unspecified location of malignancy (CMS/HCC) Jason Albarran MD [address] [address] Phone: tel: fax: [facility] [address] [place] [address] Phone: tel: fax: Referral ID Status Reason Start Date Expiration Date V isits Requested Visits Authorized [id number] Closed Specialty Services Required 12/26/2024 06/27/2026 1 1 Encounter Details Date Type Department Care Team (Latest Contact Info) Description 01/24/2025 8:30 AM EDT Office Visit [facility] Multidisciplinary Oncology Clinic [address] [place] [address] Nito Balderas MD [address] [place] [id number] Pancreatic adenocarcinoma (CMS/HCC) (Primary Dx) Social History Tobacco Use Types Packs/Day Years Used Date Smoking Tobacco: Every Day Cigarettes 0.5 48 Smokeless Tobacco: Never Alcohol Use Standard Drinks/Week Comments Never 0 (1 standard drink = 0.6 oz pur e alcohol) PHQ-2 Answer Date Recorded Patient Health Questionnaire-2 Score 0 01/24/2025 PHQ-9 Answer Date Recorded Patient Health Questionnaire-9 Score 0 01/24/2025 Humiliation, Afraid, Rape, and Kick questionnair e [...] any time in the past 12 m [facility], were you homeless or living [...] drink first t zeb in the morning ([employer]) to steady your nerves or to get rid of a hangover? 0 12/05/2024 CAGE Questionnaire Score 0 025 Utilities Answer Date Recorded In the past 12 months has th e [employer], gas, oil, or water company threatened to shut off services in your home? No 01/04/2025 Sex and Gender Information Value Date Recorded Sex Assigned at Male 01/29/2025 3:48 PM EDT Legal Sex Male 6:38 PM EDT Gender Identity Not on file Sexual Orientation Not on file documented as of this encounter Last Filed Vital Signs Vital Sign Reading Time Taken Comments Blood Pressure 101/65 01/24/2025 8:10 AM EDT Pulse 117 01/24/2025 8:10 AM EDT Temperature 36.4 C (97.6 F) 01/24/2025 8:10 AM EDT Respiratory Rate 14 01/24/2025 8:10 AM EDT Oxygen Saturation 98% 01/24/2025 8:10 AM EDT Inhaled Oxygen Concentration - - Weight 67.7 kg (149 lb 3.2 oz) 01/24/2025 8:10 A M EDT Height 165.1 cm (5' 5 ) 01/24/2025 8:10 AM EDT Body Mass Index 24.83 01/24/2025 8:10 AM EDT documented in this encounter Functional Status * Over the past 2 weeks, how often have you been bothered by any of the following problems? Question Answer Date of Assessment Author Little interest or pleasure in doing things Not at all 01/24/2025 8:15 AM EDT Lana Peace Feeling down, depressed, or hopeless Not at all 12/27 8:15 AM EDT Lana Peace Patient Health Questionnaire-2 Score 0 12/27 8:15 AM EDT Lana Peace * Question Answer Date of Assessment Author Trouble falling or staying a sleep, or sleeping too much Not at all 01/24/2025 8:15 AM EDT Lana Peace Feeling tired or having ryan le energy Not at all 01/24/2025 8:15 AM EDT Lana Peace Poor appetite or overeating Not at all 01/24/2025 8: 15 AM EDT Lana Peace Feeling bad about yourself - or that you are a failure or have let yourself or your family down Not at all 01/24/2025 8:15 AM EDT Maverick Peace Trouble concentrating on thi ngs, such as reading the newspaper or watching television Not at all 01/24/2025 8:15 AM EDT Lana Peace Moving or speaking so slowly that other people could have noticed? Or the opposite - being so fidgety or restless that you have been moving around a lot more than usual. Not at all 01/24/2025 8:15 AM EDT Celina Peace Thoughts that you would be b dickson off or hurting yourself in some way Not at all 01/24/2025 8:15 AM EDT Lana Peace Patient Health Questionnaire-9 Score 0 12/27 8:15 AM EDT Lana Peace * If you checked off any problems on this questionnaire so far, Question Answer Date of Assessment Author How difficult have these problems made it for you to do your work, take care of things at home, or get along with other people? Not difficult at all 01/24/2025 8:15 AM EDT Lana Peace documented as of this encounter Miscellaneous Notes * Progress Notes - Nito Balderas MD - 01/24/2025 8:30 AM EDT MEDICAL ONCOLOGY FOLLOW-UP NOTE Patient Information Patient Name: Guanako Brock Date of : 1960 REFERRING PHYSICIAN: Jason Albarran MD [address] [place] [id number] Raimundo Chirinos MD Encounter Date: 01/24/2025 Treatment Diagnosis: Cancer Staging Malignant neoplasm of pancreas, unspecified location of malignancy (CMS/HCC) Staging form: Pancreas, Exocrine AJCC 8th Edition - Clinical stage from 01/24/2025: Stage IIA (cT3, cN0, cM0) - Unsigned History of Present Illness: Guanako Brock is a 65 y.o. male who returns for followup. 64 y.o. male with PMHx significant forHFrEF, AFib, CAD s/p stents x8, and hypertension presenting for pancreatic head adenocarcinoma. Recently admitted to the hospital in December 2024 with pancreatitis. Patient found to have elevated liver enzymes, elevated bilirubin to 8.8, underwent MRCP which revealed ill-defined pancreatic head mass with no evidence of metastases. Patient underwent ERCP with a stenting of the common bile duct and common hepatic duct. Both metallic stents , patient was evaluated by Surgical Oncology for we will procedure but patient declined surgery. Patient was discharged from the hospital on January 03 was given appointment to Oncology. He had severe systolic heart failure and the risk of sudden during surgery is high. Patient doesn't want to have surgery, due to high surgical risk after discussion with Surgical Oncology whilehe was inpatient. Of note, the patient was hospitalized at outside facility and he was discharged few days ago with a small-bowel obstruction. I had a lengthy discussion today with the patient and his , about locally advanced pancreatic cancer. The patient has lost 50-60 lb in the last 6 weeks and his eating habits has significantly decreased. Discussed with the patient that without treatment, he will likely from malnutrition in the next few months. Explained that there is potential benefit of chemotherapy therapy or chemoradiation therapy. Patient reports that he saw his sister suffered from colon cancer and he does not want to go through with the treatment. The patient stated clearly that he wants to focus on his quality of life and he does not want to compromise that with chemotherapy or radiation. Oncology History No history exists. he denies fever, or chills, dysuria, hematuria, constipation, melena, diarrhea, hematochezia, hematemesis, abdominal pain, shortness of breath, cough, sputum production, mental status changes, neuropathy, chest pain, palpitations, rash, itching, dysphagia, voice changes, hearing loss, visual changes, stridor. Past Medical, Surgical, Family and Social History, Allergies and Medications Reviewed in this encounter by me personally Objective Performance Status 0: Fully active, able to carry on all pre-disease performance without restriction Blood pressure 101/65, pulse (!) 117, temperature 36.4 ??C (97.6 ??F), temperature source Oral, resp. rate 14, height 1.651 m (5' 5 ), weight 67.7 kg (149 lb 3.2 oz), SpO2 98%. EXAM Physical Exam GENERAL: chronically ill appearing, alert, male in no acute/mild/moderate distress EYES: PERRLA EOMI; No scleral icterus HEENT: OP clear, no evidence of oral lesions, mucosal ulceration. The tongue is mobile, tonsils arepresent, and palatal elevation is normal. NECK: Supple, without thyromegaly or adenopathy. NODES: no axillary nodes are noted RESPIRATORY: Clear to auscultation. No rhonchi, rubs or wheezes are heard. HEART: regular without murmur, rub or gallop, PMI non-displaced ABDOMEN: positive bowel sounds, non-tender, non-distended, No hepatomegaly, no splenomegaly, no other masses noted EXT: No edema, pulses 2+ in posterior tibial/dorsalis pedis, SKIN: No rash or subcutaneous nodules, no bruising NEURO: Alert, Oriented x 3, CN II-XII intact. Motor 5/5 in nurse receptionist, bicep, tricep, dorsi/plantar flexors. affect appropriate, memory intact to short and long-term events, gait normal LABORATORIES STUDIES: reviewed by me personally Lab Results Component Value Date WBC 9.38 01/03/2025 HGB 16.2 01/03/2025 HCT 49.9 01/03/2025 PLT 230 01/03/2025 NEUTROABS 7.83 (H) 01/03/2025 Lab Results Component Value Date CREATININE 0.98 01/03/2025 NA 140 01/03/2025 K 4.1 01/03/2025 TP 5.7 (L) 01/03/2025 AST 78 (H) 01/03/2025 ALKPHOS 278 (H) 01/03/2025 ALT 219 (H) 01/03/2025 ANC ?? Lab Results Component Value Date WBC 9.38 01/03/2025 HGB 16.2 01/03/2025 HCT 49.9 01/03/2025 MCV 88 01/03/2025 PLT 230 01/03/2025 CBC WBC ?? Hb ?? Plt ?? Hct ?? ANC ?? INR ??, PTT ??, Anti-Xa ?? BMP Na ?? Cl ?? BUN ?? Glu ?? K ?? Co2 ?? Cr ?? Ca ?? iCa ?? Mg ??, Phos ?? Lactate ?? LFT AST ?? AlkPhos ?? T Prot ?? ALK ?? Bili ?? Alb ?? D.Bili ?? RADIOLOGY: I visualized the recent imaging below and discussed the current radiology findings with the patientin detail and released the report gave copies of the reports to the patient and answered all questions. Assessment/Plan 1. Cancer management : Cancer Staging Malignant neoplasm of pancreas, unspecified location of malignancy (CMS/HCC), Staging form: Pancreas, Exocrine AJCC 8th Edition, Clinical: Stage IIA # Locally advanced pancreatic cancer: Discussed with the patient that he has locally advanced disease, he has high surgical risk from theWhipple procedure due to severe heart failure, explained to the patient that there was potential role of chemotherapy or concurrent chemoradiation therapy, the patient wants to focus on his quality of life and does not want to move forward with the treatment. Patient understands that the disease will affect his eating and drinking which will likely get worse in the next few weeks to few months, patient stated clearly that he would like to focus on his quality of life, he will be given an appointment with the palliative care. Initially in the visit, the patient questioned the diagnosis of pancreatic adenocarcinoma, images were reviewed with the patient, pathology results, also that goes with his symptoms of significant weight loss in the last 6 weeks poor eating. Explained to the patient the potential benefit of concurrent chemoradiation with a potential toxicity and impairing his quality of life during the treatment,Patient clearly stated that he wanted to focus on his quality of life Refer to palliative care The case was seen and discussed with Dr Adryan Balderas MD, PGY5 Hematology and Medical Oncology fellow Pager number : [phone] [facility] HEMATOLOGY/BMT AND CELLULAR THERAPY PROGRAM [address] [place] [phone] Cosigned by Roldan Cornelius MD at 01/24/2025 11:58 AM EDT Associated attestation - Roldan Cornelius MD - 01/24/2025 11:58 AM EDT I saw and evaluated the patient with the resident/fellow. I discussed the case with the resident/fellow and agree with the findings and plan as documented. documented in this encounter Plan of Treatment Scheduled Orders Name Type Priority Associated Diagnoses Orde r Schedule Cancer antigen 19-9 Lab Routine Pancreatic adenocarcinoma (CMS/HCC) Expected: 01/24/2025 (Approximate), Expires: 07/27/2026 CBC and differential Lab Routine Pancreatic adenocarcinoma (CMS/HCC) Expected: 01/24/2025 (Approximate), Expires: 07/27/2026 Comprehensive metabolic panel Lab Routine Pancreatic adenocarcinoma (CMS/HCC) Expected: 01/24/2025 (Approximate), Expires: 07/27/2026 Scheduled Referrals Name Type Priority Associated Diagnoses Orde r Schedule Ambulatory referral to Palliative Care Outpatient Referral Routine Pancreatic adenocarcinoma (CMS/HCC) Expected: 01/24/2025 (Approximate), Expires: 07/28/2026 documented as of this encounter Goals Goal Patient Goal Type Associated Problems Recent Progress Patient-Stated? Author Autogenerat ed Goal Care Plan Autogenerated Problem No Sourav Garrido RN documented as of this encounter Visit Diagnoses Diagnosis Pancreatic adenocarcinoma (CMS/HCC)- Primary Malignant neoplasm of pancreas, part unspecified documented in this encounter Additional Health Concerns Active Problems Noted Date Diagnosed Date Autogenerated Problem 01/02/2025 Assessment Noted Time PHQ-9 Depression Total Score: 0 01/25/20 8:15 AM EDT A fall risk assessment has been complete d for the patient 01/24/2025 8:15 AM EDT A Body Mass Index follow-up plan has been documented for the patient 01/03/2025 2:46 PM EDT documented as of this encounter Care Teams Beader Relationship Specialty Start Date End Date Raimundo Chirinos MD [address] [place] [address] [address] [place] [address] PCP - General 11/18/21 Moiz Mcnally MD [address] [place] [address] Surgeon Neurosurgery 11/18/21 Bridgett Gonzales APRN [address] [place] [address] Nurse Practitioner Neurosurgery 01/07/22 Ynes oRcha LPN [facility] TCM Nurse 12/27/24 8/ documented as of this encounter
--- OUTSIDE RECORDS SUMMARY | 2025-02-10 20:00 | XMS_ITS | Clinical Summary ---
Author Organization [facility] ([facility] Address [facility] [place] [phone] Phone Care Team Providers Care Herbologist Name Role Phone MAXIMINO BUCHANAN, YUMIKO Unavailable Unavailable KATERIN OT, JUD Unavailable Unavailable BETTIE RN, GOVIND Unavailable Unavailable STEWART HAM FACER, TRACIE Unavailable Unavailable CHASITY PT, ZAIN Unavailable Unavailable Payers Payer Name Policy Type Policy Number Effective Date Expira tion Date MEDICARE [id number] Problems Condition Name Condition Details Condition Category Status Onset Date Resolution Date Last Treatment Date Treating Clinician Comments MALIGNANT NEOPLASM OF PANCREAS, UNSPECIFIED Active 02-02 00:00: 00 UNSPECIFIED ATRIAL FIBRILLATION Active 02-02 00:00: 00 HYPERTENSIVE HEART DISEASE WITH HEART FAILURE Active 02-02 00:00: 00 CHRONIC SYSTOLIC (CONGESTIVE) HEART FAILURE Active 02-02 00:00: 00 ATHSCL HEART DISEASE OF [place] CORONARY ARTERY W/O ANG PCTRS Active 02-02 00:00: 00 PRESENCE OF CORONARY ANGIOPLASTY IMPLANT AND GRAFT Active 02-02 00:00: 00 ACUTE PANCREATITIS WITHOUT NECROSIS OR INFECTION, UNSP Active 02-02 00:00: 00 MCFP (CURRENT) USE OF ASPIRIN Active 02-02 00:00: 00 HISTORY OF FALLING Active 02-02 00:00: 00 Allergies, Adverse Reactions, Alerts Allergy Name Allergy Type Status Severity Reaction(s) Onset Date Inactive Date Treating Clinician Comments LIPITOR Propensity to adverse reactions Active 2025-01 09:06:1 5 Medications Ordered Medication Name Filled Medication Name Start Date Stop Date Current Medication? Ordering Clinician Indication Dosage Frequency Signature (SIG) Comments Components aspirin 81 mg tablet 02-05 00:00: 00 Yes [id number] BLOOD THINNER Per instruc tions DAILY Per instructio ns DAILY (route: oral) Med Classific ation: Hematolog ical Agents gabapentin 300 mg capsule 02-05 00:00: 00 Yes [id number] PAIN 1 capsule 4 TIMES DAILY 1 capsule 4 TIMES DAILY (route: oral) Med Classific ation: Central Nervous System Agents Lasix 40 mg tablet 02-05 00:00: 00 Yes [id number] SWELLING 1 tablet O2 - PRN 1 tablet O2 - PRN (route: oral) Med Classific ation: Cardiovas cular Therapy Agents metoprolol succinate ER 25 mg tablet,exte nded release 24 hr 02-05 00:00: 00 Yes [id number] BLOOD PRESSURE HEART RATE 1 tablet DAILY 1 tablet DAILY (route: oral) Med Classific ation: Cardiovas cular Therapy Agents oxycodone 5 mg tablet 02-05 00:00: 00 Yes [id number] PAIN 1 tablet O2 - PRN 1 tablet O2 - PRN (route: oral) Med Classific ation: Analgesic , Anti-infl ammatory or Antipyret ic potassium chloride ER 20 mEq tablet,exte nded release 02-05 00:00: 00 Yes [id number] REPLACEMENT 1 tablet DAILY 1 tablet DAILY (route: oral) Med Classific ation: Electroly te Balance-N utritiona l Products Senna with Docusate Sodium 8.6 mg-50 mg tablet 02-05 00:00: 00 Yes [id number] CONSTIPATIO N 1 tablet O2 - PRN 1 tablet O2 - PRN (route: oral) Med Classific ation: Gastroint estinal Therapy Agents Immunizations Ordered Immunization Name Filled Immunization Name Date Status Comments INFLUENZA, TIV (INACTIVATED) 2025-02-05 00:00:00 Vital Signs Vital Name Observation Time Observation Value Commen ts Temperature 2025-02-08 13:38:00.000 97.3 [degF] Temperature 2025-02-03 13:59:00.000 98.6 [degF] BMI (%) 2025-02-03 13:59:00.000 23 kg/m2 Height 2025-02-03 13:59:00.000 67 [in_us] Pulse 2025-02-08 13:38:00.000 80 /min Pulse 2025-02-03 13:59:00.000 90 /min O2 Saturation (%) 2025-02-08 13:38:00.000 98 % Respirations 2025-02-08 13:38:00.000 16 /min Respirations 2025-02-03 13:59:00.000 18 /min Weight (lbs) 2025-02-03 13:59:00.000 149 [lb_av] Systolic Blood Pressure 2025-02-08 13:38:00.000 110 mm [Hg] Systolic Blood Pressure 2025-02-03 13:59:00.000 130 mm [Hg] Diastolic Blood Pressure 2025-02-08 13:38:00.000 78 mm [Hg] Diastolic Blood Pressure 2025-02-03 13:59:00.000 70 mm [Hg] Plan of Care Planned Activity Planned Date Details Comments Future Scheduled Test SKILLED NU RSE TO OBSERVE AND ASSESS RESPIRATORY SYSTEM TO IDENTIFY CHANGES AND INTERVENE TO MINIMIZE COMPLICATIONS. SKILLED NURSE TO PROVIDE SKILLED TEACHING RELATED TO ALTERED RESPIRATORY STATUS INCLUDING PATHOPHYSIOLOGY, NUTRITION, MEDICATION REGIMEN, AND PERMITTED ACTIVITIES. [code = SKILLED NURSE TO OBSERVE AND ASSESS RESPIRATORY SYSTEM TO IDENTIFY CHANGES AND INTERVENE TO MINIMIZE COMPLICATIONS. SKILLED NURSE TO PROVIDE SKILLED TEACHING RELATED TO ALTERED RESPIRATORY STATUS INCLUDING PATHOPHYSIOLOGY, NUTRITION, MEDICATION REGIMEN, AND PERMITTED ACTIVITIES.] Future Scheduled Test SKILLED NU RSE FOR OBSERVATION/ASSESSMENT OF PAIN, EFFECTIVENESS OF PAIN MANAGEMENT INCLUDING MEDICATION REVIEW AND PHARMACOLOGICAL AND NONPHARMACOLOGICAL TREATMENTS AND SKILLED TEACHING RELATED TO PAIN MANAGEMENT. SKILLED NURSE TO INTERVENE WITH INCREASED PAIN LEVEL TO MINIMIZE COMPLICATIONS. [code = SKILLED NURSE FOR OBSERVATION/ASSESSMENT OF PAIN, EFFECTIVENESS OF PAIN MANAGEMENT INCLUDING MEDICATION REVIEW AND PHARMACOLOGICAL AND NONPHARMACOLOGICAL TREATMENTS AND SKILLED TEACHING RELATED TO PAIN MANAGEMENT. SKILLED NURSE TO INTERVENE WITH INCREASED PAIN LEVEL TO MINIMIZE COMPLICATIONS.] Future Scheduled Test SKILLED NU RSE TO FOCUS ON IDENTIFIED NEED FOR HIGH RISK MEDICATION INTERVENTION. [code = SKILLED NURSE TO FOCUS ON IDENTIFIED NEED FOR HIGH RISK MEDICATION INTERVENTION.] Future Scheduled Test SKILLED NU RSE FOR OBSERVATION / ASSESSMENT OF PATIENT'S IMPAIRED NUTRITION RELATED TO MALNUTRITION. INSTRUCT PATIENT / CAREGIVER ON INTERVENTIONS DESIGNED TO IMPROVE NUTRITIONAL INTAKE AND PATIENT WELL BEING. [code = SKILLED NURSE FOR OBSERVATION / ASSESSMENT OF PATIENT'S IMPAIRED NUTRITION RELATED TO MALNUTRITION. INSTRUCT PATIENT / CAREGIVER ON INTERVENTIONS DESIGNED TO IMPROVE NUTRITIONAL INTAKE AND PATIENT WELL BEING.] Future Scheduled Test SKILLED NU RSE PRN VISIT ORDER: #3 OF PRN VISITS MAY BE PERFORMED DURING THIS CERTIFICATION PERIOD FOR THE FOLLOWING REASON(S): PAIN OR CHANGE IN CONDITION SKILLED NURSE TO EVALUATE AND DEVELOP PLAN OF CARE TO BE SIGNED BY THE PHYSICIAN. SKILLED NURSE TO ASSESS/EVALUATE ANY CONDITIONS THAT PRESENT THEMSELVES AND THAT WILL IMPACT THE PLAN OF CARE DURING THE COURSE OF THE EPISODE TO IDENTIFY CHANGES AND INTERVENE TO MINIMIZE COMPLICATIONS. TEACH AND MONITOR PATIENT/CAREGIVER ABILITY TO SAFELY ADMINISTER MEDICATIONS. PHONE TOUCHPOINTS CAN BE PERFORMED NEEDED TO SUPPLEMENT THE PLAN OF CARE. [code = SKILLED NURSE PRN VISIT ORDER: #3 OF PRN VISITS MAY BE PERFORMED DURING THIS CERTIFICATION PERIOD FOR THE FOLLOWING REASON(S): PAIN OR CHANGE IN CONDITION SKILLED NURSE TO EVALUATE AND DEVELOP PLAN OF CARE TO BE SIGNED BY THE PHYSICIAN. SKILLED NURSE TO ASSESS/EVALUATE ANY CONDITIONS THAT PRESENT THEMSELVES AND THAT WILL IMPACT THE PLAN OF CARE DURING THE COURSE OF THE EPISODE TO IDENTIFY CHANGES AND INTERVENE TO MINIMIZE COMPLICATIONS. TEACH AND MONITOR PATIENT/CAREGIVER ABILITY TO SAFELY ADMINISTER MEDICATIONS. PHONE TOUCHPOINTS CAN BE PERFORMED NEEDED TO SUPPLEMENT THE PLAN OF CARE.] Future Scheduled Test SKILLED NU RSE TO OBSERVE SKILLED NURSE TO PROVIDE SKILLED TEACHING RELATED PANCREATIC [id number] PATHOPHYSIOLOGY, NUTRITION, MEDICATION REGIMEN, AND PERMITTED ACTIVITIES. [code = SKILLED NURSE TO OBSERVE SKILLED NURSE TO PROVIDE SKILLED TEACHING RELATED PANCREATIC [id number] PATHOPHYSIOLOGY, NUTRITION, MEDICATION REGIMEN, AND PERMITTED ACTIVITIES.] Future Scheduled Test PATIENT/CA REGIVE WILL BE KNOWLEDGEABLE OF DISCHARGE PLANS AND WILL DEMONSTRATE/PROVIDE EDUCATION AND RESOURCES NEEDED TO MAINTAIN HEALTH. [code = PATIENT/CAREGIVE WILL BE KNOWLEDGEABLE OF DISCHARGE PLANS AND WILL DEMONSTRATE/PROVIDE EDUCATION AND RESOURCES NEEDED TO MAINTAIN HEALTH.] Future Scheduled Test AGENCY EMANI L DISCHARGE PATIENT TO PCP PHYSICIAN/HEALTH CARE PROVIDER AND MAY ACCEPT ORDERS FROM THE FOLLOWING PHYSICIANS: DR CADENA [code = AGENCY WILL DISCHARGE PATIENT TO PCP PHYSICIAN/HEALTH CARE PROVIDER AND MAY ACCEPT ORDERS FROM THE FOLLOWING PHYSICIANS: DR CADENA] Future Scheduled Test SKILLED NU RSE TO TEACH PATIENT / CAREGIVER METHOD TO PREFILL AND USE MEDICATION GENERATION TECHNOLOGIST DEVICE AND SAFELY ADMINISTER MEDICATIONS. [code = SKILLED NURSE TO TEACH PATIENT / CAREGIVER METHOD TO PREFILL AND USE MEDICATION GENERATION TECHNOLOGIST DEVICE AND SAFELY ADMINISTER MEDICATIONS.] Future Scheduled Test SN TO ASSE SS AND TO PROVIDE TEACHING AND TRAINING FOR PALLIATIVE CARE NEEDS TO INCLUDE SYMPTOM MANAGEMENT RELATED TO CHRONIC MEDICAL CONDITION(S) OF PANCREATIC CANCER [code = SN TO ASSESS AND TO PROVIDE TEACHING AND TRAINING FOR PALLIATIVE CARE NEEDS TO INCLUDE SYMPTOM MANAGEMENT RELATED TO CHRONIC MEDICAL CONDITION(S) OF PANCREATIC CANCER ] Future Scheduled Test SN REMOTE VIDEO VISIT(S) TO ASSESS/EVALUATE AND PROVIDE EDUCATION/TRAINING ON INTERVENTIONS/PROCEDURES PER THE POC, SAFE MEDICATION ADMINISTRATION, DISEASE MANAGEMENT , SIGNS/SYMPTOMS OF EXACERBATION, METHODS TO PREVENT EXACERBATION, AND SIGNS/SYMPTOMS TO REPORT AGENCY, PHYSICIAN OR 911. [code = SN REMOTE VIDEO VISIT(S) TO ASSESS/EVALUATE AND PROVIDE EDUCATION/TRAINING ON INTERVENTIONS/PROCEDURES PER THE POC, SAFE MEDICATION ADMINISTRATION, DISEASE MANAGEMENT , SIGNS/SYMPTOMS OF EXACERBATION, METHODS TO PREVENT EXACERBATION, AND SIGNS/SYMPTOMS TO REPORT AGENCY, PHYSICIAN OR 911.] Future Scheduled Test CLINICIAN TO EDUCATE PATIENT / CAREGIVER IN FALL PREVENTION AND PROVIDE INTERVENTIONS TO REDUCE FALL RISK AND ENHANCE HOME SAFETY [code = CLINICIAN TO EDUCATE PATIENT / CAREGIVER IN FALL PREVENTION AND PROVIDE INTERVENTIONS TO REDUCE FALL RISK AND ENHANCE HOME SAFETY] Future Scheduled Test PSYCHOSOCI AL / COGNITIVE ASSESSMENT INDICATES NO NEED FOR SOCIAL, FINANCIAL, OR TRANSPORTATION SUPPORT OR FOR ADDITIONAL CARE PROVIDERS/DISCIPLINES OR REFERRALS TO OUTSIDE ENTITIES. [code = PSYCHOSOCIAL / COGNITIVE ASSESSMENT INDICATES NO NEED FOR SOCIAL, FINANCIAL, OR TRANSPORTATION SUPPORT OR FOR ADDITIONAL CARE PROVIDERS/DISCIPLINES OR REFERRALS TO OUTSIDE ENTITIES.] Reason for Visit INDEPENDENT IN THE COMMUNITY Encounters Start Date/Time End Date/Time Encounter Type Admission Type Attending [facility] Care Facility Care Department Encounter ID 2025-02-02 00:00:00 2025-02-11 00:00:00 Unknown NEW ADMISSION JUD CONKLIN, GOVIND WILLIAM, ZAIN NICOLAS [facility] [id number]
--- OUTSIDE RECORDS SUMMARY | 2025-02-20 07:31 | XMS_ITS | Encounter Summary ---
Author Organization Healthcare Address [address] [place] [address] Care Team Providers Care Chief Business Officer Name Role Phone Raimundo Chirinos MD Primary Care Provider [phone] Moiz Mcnally MD Unavailable [phone] Bridgett Gonzales WHITE SPOOLER Unavailable Ynes Rocha KICK PRESS OPERATOR Unavailable Unavailab Terrance Hdez Unavailable Unavailable Reason for Visit * Reason Comments Follow-up Encounter Details Date Type Department Care Team (Late st Contact Info) Description 01/16/2025 Patient Outreach POPULATION HEALTH [address] [facility] [address] [place] [address] Terrance Corral Follow-up Social History [...] in the past 12 m [facility], were you homeless or living in a care home (including now)? No 01/04/2025 CAGE ASSESSMENT [...] drink first t zeb in the morning (EYE-AIRCRAFT RIGGING AND CONTROLS MECHANIC) to steady your nerves or to get rid of a hangover? 0 12/05/2024 CAGE Questionnaire Score 0 025 Utilities Answer Date Recorded In the past 12 months has th e [employer], gas, oil, or water company threatened to shut off services in your home? No 01/04/2025 Sex and Gender Information Value Date Recorded Sex Assigned at Male 01/29/2025 3:48 PM EDT Legal Sex Male 6:38 PM EDT Gender Identity Not on file Sexual Orientation Not on file documented as of this encounter Miscellaneous Notes * Progress Notes - O'Rigoberto, Terrance T - 01/16/2025 8:58 AM EDT CHW attempted [...] as of this encounter Care Teams Chief Business Officer Relationship Specialty Start Date End Date Raimundo Chirinos MD [address] [facility] [address] [place] [address] PCP - General 11/18/21 Moiz Mcnally MD [address] [place] [phone] Surgeon Neurosurgery 11/18/21 Bridgett Gonzales APRN [address] [place] [address] Nurse Practitioner Neurosurgery 01/07/22 Ynes Rocha LPN [facility] TCM Nurse 12/27/24 8/1 Terrance Corral Community Health Worker 12/27/2401/16 documented as of this encounter
--- OUTSIDE RECORDS SUMMARY | 2025-02-20 07:31 | XMS_ITS | Encounter Summary ---
Author Organization [facility] Address [address] [place] [id number] Care Team Providers Care Materials Engineer Name Role Phone Raimundo Chirinos MD Primary Care Provider [phone] Moiz Mcnally MD Unavailable [phone] Bridgett Gonzales MOCK UP ASSEMBLER Unavailable [phone] Encounter Details Date Type Department Care Team (Late st Contact Info) Description 02/08/2025 Telephone [facility] [address] [place] [address] Roldan Cornelius MD [address] [facility] [address] [place] [address] Social History Tobacco Use Types Packs/Day Years [...] drink first t zeb in the morning (EYE-CLINICAL UNIT COORDINATOR) to steady your nerves or to get [...] encounter Miscellaneous Notes * Telephone Encounter - Danna Henderson RN - 02/13/2025 8:22 AM EDT Referral faxed to [facility] on 02/13. * Telephone Encounter - Aliyah Alba - 02/08/2025 2:07 PM EDT Patient Phone Message Reason for Call: Patient was seen by [facility] on Tuesday for his start. He was seen today for his routine visit. His family and him discussed that he wants to start Hospice instead. Asking if Dr. Cornelius can put an orderin for that and make sure he is discharged properly. [facility] Navigators in [facility] Best contact number and optimal time of day to reach caller: Tami [phone] Note: Please do not reply to this message. Follow-up communication and further actions as a result of this message need to be communicated with the patient directly, if the patient is not active onMyChart. If the patient is active on MyChart, they will receive notification of the communication/outcome via [facility] documented in this encounter Plan of Treatment [...] Time PHQ-9 Depression Total Score: 0 01/25/20 25 8:15 AM EDT A fall risk assessment has been complete d for the patient 01/24/2025 8:15 AM EDT A Body Mass Index follow-up plan has been documented for the patient 01/03/2025 2:46 PM EDT documented as of this encounter Care Teams Materials Engineer Relationship Specialty Start Date End Date Raimundo Chirinos MD [address] [place] [id number] PCP - General 11/18/21 Moiz Mcnally MD [address] [place] [address] Surgeon Neurosurgery 11/18/21 Bridgett Gonzales APRN [address] [place] [address] Nurse Practitioner Neurosurgery 01/07/22 documented as of this encounter
--- OUTSIDE RECORDS SUMMARY | 2025-02-20 07:31 | XMS_ITS | Encounter Summary ---
Author Organization Healthcare Address [address] [place] [address] Care Team Providers Care Straight Knife Machine Cutter Name Role Phone Raimundo Chirinos MD Primary Care Provider [phone] Moiz Mcnally MD Unavailable [phone] Bridgett Gonzales TECHNICAL SUPERVISOR Unavailable [phone] Ynes Rocha SUPERVISOR CELL EFFICIENCY Unavailable Unavailab Terrance Hdez Unavailable Unavailable Reason for Visit * Reason Comments Community Resources Encounter Details Date Type Department Care Team (Late st Contact Info) Description 12/27/2024 Patient Outreach POPULATION HEALTH [address] [facility] [address] [place] [address] Terrance Corral Community Resources Social [...] drink first t zeb in the morning (EYE-AIRLINE STATION AGENT) to steady your nerves or to get rid of a hangover? 0 12/05/2024 CAGE Questionnaire Score 0 025 Utilities Answer Date Recorded In the past 12 months has th e [employer], gas, oil, or water company threatened to [...] 12/27/2024 Urgent or Non-Urgent Referral: Non Urgent Catering Associate: No Preferred Language: Liberian Catering Associate ID: Outreach 1: 12/27/24 - left vm [...] documented as of this encounter Care Teams Straight Knife Machine Cutter Relationship Specialty Start Date End Date Raimundo Chirinos MD [address] [place] [address] [address] [place] [address] PCP - General 11/18/21 Moiz Mcnally MD [address] [facility] [place] [address] Surgeon Neurosurgery 11/18/21 Bridgett Gonzales APRN [address] [place] [address] Nurse Practitioner Neurosurgery 01/07/22 Ynes Rocha LPN [facility] TCM Nurse 12/27/2401/25 Terrance Corral Community Health Worker 12/27/2401/16 documented as of this encounter
--- OUTSIDE RECORDS SUMMARY | 2025-02-20 07:31 | XMS_ITS | Encounter Summary ---
Author Organization [facility] Address [address] [place] [address] Care Team Providers Care Burning Supervisor Name Role Phone Raimundo Chirinos MD Primary Care Provider [phone] Moiz Mcnally MD Unavailable [phone] Bridgett Gonzales INTERNATIONAL SALES MANAGER Unavailable [phone] Ynes Rocha FOUNDATION RELATIONS DIRECTOR Unavailable Unavailab le Reason for Referral * Consultation (Routine) - Authorized Specialty Diagnoses / Procedures Referred By Pola t Referred To Contact Palliative Medicine Diagnoses Pancreatic adenocarcinoma (CMS/HCC) Roldan Cornelius MD [address] [address] Phone: tel: fax: Referral ID Status Reason Start Date Expiration Date Visits Requested Visits Authorized [id number] Authorized Specialty Services Required 01/30/2025 08/01/2026 1 1 Encounter Details Date Type Department Care Team (Latest Contact Info) Description 01/30/2025 Orders Only [facility] [address] [place] [phone] Danna Henderson, RN Pancreatic adenocarcinoma (CMS/HCC) (Primary Dx) Social History [...] living in a chcf (including now)? No 01/04/2025 CAGE ASSESSMENT Answer [...] drink first t zeb in the morning (EYE-TEAM CDL DRIVER) to steady your nerves or to [...] as of this encounter Miscellaneous Notes * Clinician Note - Danna Henderson RN - 01/30/2025 9:02 AM EDT Palliative referral sent to [facility]. Fax number: [phone]. documented in this encounter Plan of Treatment Scheduled Referrals Name Type Priority Associated Diagnoses Orde r Schedule Ambulatory referral to Palliative Care Outpatient Referral Routine Pancreatic adenocarcinoma (CMS/HCC) Expected: 01/30/2025 (Approximate), Expires: 08/03/2026 documented as of this encounter Goals Goal [...] documented as of this encounter Care Teams Burning Supervisor Relationship Specialty Start Date End Date Raimundo Chirinos MD [address] [place] [address] PCP - General 11/18/21 Moiz Mcnally MD [address] [address] Surgeon Neurosurgery 11/18/21 Bridgett Gonzales APRN [address] [address] Nurse Practitioner Neurosurgery 01/07/22 Ynes Rocha LPN [facility] TCM Nurse 12/27/2401/25 documented as of this encounter
--- OUTSIDE RECORDS SUMMARY | 2025-02-20 07:31 | XMS_ITS | Encounter Summary ---
Author Organization [facility] Address [address] [place] [address] Care Team Providers Care Camp Coordinator Name Role Phone Raimundo Chirinos MD Primary Care Provider [phone] Moiz Mcnally MD Unavailable [phone] Bridgett Gonzales APRN Unavailable [phone] Encounter Details Date Type Department Care Team [...] in a senior living (including now)? No 12/06/2024 CAGE ASSESSMENT Answer [...] drink first t zeb in the morning (EYE-OFFENDER EMPLOYMENT SPECIALIST) to steady your nerves or to get rid of a hangover? 0 12/05/2024 CAGE Questionnaire Score 0 025 Utilities Answer Date Recorded In the past 12 months has th e [employer], gas, oil, or water company threatened to [...] Indicated 12/25/2024 4:00 PM EDT Edmar Fernandez, RN * Question Answer Date of Assessment Author 1. Wish to be (Past 1 Month) No 025 4:00 PM EDT Edmar Fernandez, KENNETH 2. Non-Specific Active Suici sharita Thoughts (Past [...] documented as of this encounter Care Teams Camp Coordinator Relationship Specialty Start Date End Date Raimundo Chirinos MD [address] [place] [address] [address] [place] [address] PCP - General 11/18/21 Moiz Mcnally MD [address] [id number] Surgeon Neurosurgery 11/18/21 Bridgett Gonzales APRN [address] [place] [address] Nurse Practitioner Neurosurgery 01/07/22 documented as of this encounter
--- OUTSIDE RECORDS SUMMARY | 2025-02-20 07:31 | XMS_ITS | Clinical Summary ---
Author Organization [facility] Address [address] [place] [address] Care Team Providers Care Political Research Scientist Name Role Phone Raimundo Chirinos MD Primary Care Provider [phone] Moiz Mcnally MD Unavailable [phone] Bridgett Gonzales GARBAGE PICK UP WORKER Unavailable [phone] Allergies Active Allergy Reactions Criticality Noted Date Comments Atorvastatin Hallucinations Medium 12/04/2024 Happens with brand name only Medications * This document contains information received from the source organization and may not represent a complete record from that organization. senna-docusate sodium (Senokot-S) 8.6-50 MG tablet Take 1 tablet by mouth 2 times a day as needed for constipation. 60 tablet 2 12/08/19 25 Active ondansetron ODT (Zofran-ODT) 4 MG disintegrating tablet Dissolve 1 tablet on the tongue every 6 hours as needed for nausea or vomiting. 90 tablet 12/26/19 25 Active Additional Information Patient not taking.Reported on 01/24/2025 gabapentin (Neurontin) 300 MG capsule Take 1 [...] other nostril if symptoms continue 1 each 12/27/19 25 Active Additional Information Patient not taking.Reported on 01/24/2025 metoprolol succinate XL (Toprol-XL) 25 MG 24 hr tablet Take 1 tablet by mouth daily. Do not crush or chew. 30 tablet 12/27/19 25 Active potassium chloride CR (Klor-Con M20) 20 MEQ ER tablet Take 1 tablet by mouth daily. Do not crush or chew. Active lisinopril 2.5 MG tablet Take 1 tablet by mouth daily. Active oxyCODONE (Roxicodone) 10 MG immediate release tablet Take 1 tablet by mouth every 4 hours as needed for moderate pain or severe pain. 24 tablet 01/04/20 25 Active rivaroxaban (Xarelto) 20 MG tablet Take 1 tablet by mouth 1 time each day with dinner. Take with food. 30 tablet 1 01/04/20 25 Active Additional Information Patient not taking.Reason: Cost, Reported on 01/24/2025 apixaban (Eliquis) 5 MG tablet Take 1 tablet by mouth 2 times a day. Active oxyCODONE (Roxicodone) 5 MG immediate release tablet 01/23/20 25 Active aspirin 81 MG EC tablet Take 1 tablet by mouth daily. 30 tablet 12/27/19 25 025 Active Problems Problem Noted Date Diagnosed Date Biliary obstruction 01/02/2025 Malignant neoplasm of pancre as, unspecified location of malignancy 12/25/2024 Cancer Staging:Clinical stage from 01/24/2025:Stage IIA(cT3, cN0, cM0) - Unsigned Assessment & Plan (12/26/2024 12:10 PM EDT): [...] (11/20/2021): Added automatically from request for surgery [id number] Encounters * This document contains information received from the source organization and may not represent a complete record from that organization. Date Type Department Care Team Description 02/12/2025 Orders Only [facility] Multidisciplinary Oncology Clinic [address] [place] [phone] Danna Henderson RN Pancreatic adenocarcinoma (CMS/HCC) (Primary Dx) 02/08/2025 Telephone [facility] Multidisciplinary Oncology Clinic [address] [place] [address] Roldan Cornelius MD 02/05/2025 Telephone [facility] Multidisciplinary Oncology Clinic [address] [place] [address] Roldan Cornelius MD 01/31/2025 Telephone [facility] Multidisciplinary Oncology Clinic [address] [place] [phone] Roldan Cornelius MD 01/30/2025 Orders Only [facility] Multidisciplinary Oncology Clinic [address] [place] [address] Danna Henderson RN Pancreatic adenocarcinoma (CMS/HCC) (Primary Dx) 01/24/2025 8:30 AM EDT Office Visit [facility] Multidisciplinary Oncology Clinic [address] [place] [phone] Nito Balderas MD Pancreatic adenocarcinoma (CMS/HCC) (Primary Dx) 01/24/2025 Travel 2025 Telephone [facility] Multidisciplinary Oncology Clinic [address] [place] [phone] Nito Balderas MD 2025 Telephone [facility] Multidisciplinary Oncology Clinic [address] [place] [phone] Nito Balderas MD 2025 Travel 01/16/2025 Orders Only External Location [address] [place] [address] Provider, External 01/16/2025 Patient Outreach [place] [address] Jairo Gunter, [address] [address] Terrance Corral Follow-up 01/11/2025 Patient Outreach [place] [address] Jairo Gunter, [address] [place] [address] Terrance Corral Follow-up 01/09/2025 Patient Outreach [place] [address] Jairo Gunter, [address] [place] [address] Terrance Corral Follow-up 01/07/2025 Telephone [facility] Multidisciplinary Oncology Clinic [address] [place] [phone] Nito Balderas MD [facility] 01/04/2025 Patient Outreach [place] [address] Jairo Gunter, [address] [address] Terrance Corral Follow-up 01/04/2025 Patient Outreach [place] [address] Jairo Gunter, [address] [address] Ynes Rocha LPN TCM Call 01/02/2025 4:33 PM EDT Anesthesia Event [facility] Endoscopy [address] [place] [address] Shahbaz Colorado MD Faircloth, Jennifer H, VANDANA 01/02/2025 Travel 01/01/2025 5:29 PM EDT - 01/03/2025 3:53 PM EDT Hospital Encounter [facility] Inpatient [address] [place] [address] Alonso Walton MD Chapman, Steven B, DO Myers, Kurt A, MD Biliary obstruction (Primary Dx); Epigastric pain; Pancreatic mass Discharge Disposition: Home or Self Care 01/01/2025 Travel 12/31/2024 Patient Outreach [place] [address] Jairo Gunter, [address] [address] Terrance Corral [facility] Resources 12/27/2024 Patient Outreach POPULATION [address] Kaci Gunter, [address] [place] [address] Terrance Corral [facility] 12/27/2024 Patient Outreach POPULATION [address], [address] [place] [address] Ynes Rocha LPN TCM Call 12/26/2024 Patient Outreach POPULATION [address], [address] [place] [address] Purvi Foy, RN Link 12/26/2024 Travel 12/25/2024 7:53 AM EDT - 12/26/2024 5:05 PM EDT Hospital Encounter [facility] A Emergency Department [address] [place] [address] Danny Lucio MD Oo, MD Bigg Chamberlain Patricia Therese A, MD Malignant neoplasm of pancreas, unspecified location of malignancy (CMS/HCC) (Primary Dx); Acute pancreatitis, unspecified complication status, unspecified pancreatitis type; Pancreatic mass; Epigastric pain; Nausea and vomiting, unspecified vomiting type; Malignant neoplasm of body of pancreas (CMS/HCC); Elevated lipase Discharge Disposition: Left Against Medical Advice 12/25/2024 Travel 12/24/2024 Orders Only [facility] Medicine Specialties [address] [place] [address] Darian Jaramillo MD Adenocarcinoma of head of pancreas (CMS/HCC) (Primary Dx); Mass of head of pancreas 12/20/2024 7:53 AM EDT Anesthesia Event [facility] Endoscopy [address] [place] [address] Sae Barriga MD Hackett, Michael D, YARD HAND 12/20/2024 7:36 AM EDT - 12/20/2024 11:59 PM EDT Hospital Encounter [facility] Radiology [address] [place] [address] History of ERCP Discharge Disposition: Home or Self Care 12/20/2024 6:31 AM EDT - 12/20/2024 7:35 AM EDT Hospital Encounter [facility] Endoscopy [address] [place] [address] Darian Jaramillo MD Acute pancreatitis, unspecified complication status, unspecified pancreatitis type (Primary Dx); Mass of head of pancreas Discharge Disposition: Home or Self Care 12/20/2024 Travel 12/12/2024 Telephone [facility] Endoscopy [address] [place] [address] Brandie Mana D Scheduling 12/11/2024 Telephone [facility] Endoscopy [address] [place] [address] Magda Airam D Scheduling 12/06/2024 Travel 12/05/2024 7:20 PM EDT - 12/07/2024 6:30 PM EDT Hospital Encounter [facility] S Inpatient [address] [place] [address] Padmini Fitzpatrick MD Miguel, Mitchell A, MD Upper abdominal pain (Primary Dx); Mass of head of pancreas Discharge Disposition: Home or Self Care 12/05/2024 Travel 12/04/2024 Travel 12/03/2024 Travel 12/03/2024 Orders Only External Location [address] [place] [address] Thomas Hood PA 12/03/2024 Orders Only External Location [address] [place] [address] Thomas Hood PA from Last 3 Months [...] any time in the past 12 m [facility], were you homeless or living in [...] drink first t zeb in the morning (EYE-TABLE ASSEMBLER METAL) to steady your nerves or to get [...] Mass Index 24.83 01/24/2025 8:10 AM EDT Plan of Treatment Health Maintenance Due Date Last Done Comments [facility]-Medicare Annual Wellness (AWV) 1960 [facility]-/Child/Adol SDOH Screenings 1960 [id number] Vaccine (#1) 01/22/1965 [facility]-DTaP,Tdap,and Td Vaccine s (1 - Tdap) 01/22/1979 [facility]-Pneumococcal Vaccine: 50 + Years (1 of 2 - PCV) 01/22/1979 [facility]Y-Zoster Vaccines (1 of 2) 01/22/1979 CT Colonography 01/22/2005 Colonoscopy 01/22/2005 FIT-DNA 01/22/2005 FIT 01/22/2005 FOBT 01/22/2005 Sigmoidoscopy 01/22/2005 [facility]-Colorectal Cancer Screening 01/22/2005 [facility]Y-RSV Vaccine: 60+ Years o r (1 - Risk 60-74 years 1-dose series) 2020 [facility]Y-Abdominal Aortic Aneurys m (AAA) Screening 01/22/2025 [facility]-Influenza Vaccine (#1) 2025 [facility]- SDOH Screenings 06/07/2025 [facility]-Adult SDOH Screenings 06/07/2025 12/06/2024 [facility]-Lung Cancer Screening 12/25/2025 12/25/2024 [facility]Y-Depression Screening 01/24/2026 025, 01/24/2025 [facility]-Hepatitis C Screening Completed 12/03/2024 [facility]-Diabetes: Hemoglobin [...] Garrido, RN Medical Devices Implanted Type Area Water System Operator Device Identifier Shelf Expiration Date Model / Serial / Lot Concorde Daryl [id number] Domitila [id number] - [id number] - [id number] Implanted:Qty: 1 on 12/11/2021 by Moiz Mcnally MD at [facility] Cage Spine Lumbar [employer] [id number] 09/16/2024 [id number] / [id number] Matrix Fibergraft Bg Lg 12.5cc - [id number] Implanted:Qty: 1 on 12/11/2021 by Moiz Mcnally MD at [facility] Spine Lumbar De[employer] Spine [employer] LP-[id number] 02/06/2024 [id number] / / [id number] Screw 5.5mm Viper Ti Fen Crtcl Polyax 7mm X 55mm - [id number] Implanted:Qty: 4 on 12/11/2021 by Moiz Mcnally MD at [facility] Spine Lumbar DePuy Spine [employer] [id number] / / Screw 5.5mm Viper Ti Fen Crtcl Polyax 8mm X 50mm - [id number] Implanted:Qty: 4 on 12/11/2021 by Moiz Mcnally MD at [facility] Spine Lumbar DePuy Spine [employer] LP-[id number] / / Pre-Lordosed Juventino W/ Line 95mm - [id number] Implanted:Qty: 2 on 12/11/2021 by Moiz Mcnally MD at [facility] Spine Lumbar DePuy Spine [employer] [id number] / / Single Inner Setscrew - [id number] Implanted:Qty: 8 on 12/11/2021 by Moiz Mcnally MD at [facility] Spine Lumbar De[employer]uy [employer] [id number] / / Stent Biliary 3.3 X 70mm - [id number] Implanted:Qty: 1 on 01/02/2025 by Vasiliy Rodriguez, RN at [facility] Bile Duct [employer]-[id number] 09/06/2027 [id number] / / [id number] Stent Zimmon 5fr X 3cm - [id number] Implanted:Qty: 1 on 01/02/2025 by Vasiliy Rodriguez, KENNETH at [facility] Pancreas Digital [employer]-[id number] 10/25/2027 [id number] / / [id number] Procedures Procedure Name Priority Date/Time Associated Diagnosis Comments CT MSK OUTSIDE IMAGES 01/16/2025 5:43 PM EDT PHOSPHORUS, PLASMA Routine 01/03/2025 1: 04 AM EDT MAGNESIUM, PLASMA Routine 01/03/2025 1:0 4 AM EDT COMPREHENSIVE METABOLIC PANEL, PLASMA Routine 01/03/2025 1:04 AM EDT CBC WITH AUTO DIFFERENTIAL Routine 01/03/2025 1:04 AM EDT ERCP Routine 01/02/2025 5:33 PM EDT Biliary obstruction FL ERC Routine 01/02/2025 5:32 PM EDT Biliary obstruction PB ANESTHESIA PLACEHOLDER Routine 01/02/2025 4:38 PM EDT OR AN ELECTIVE ENDOTRACHEAL AIRWAY Routine 01/02/2025 4:38 [...] ANESTHESIA PLACEHOLDER Routine 12/20/2024 8:00 AM EDT OR AN ELECTIVE ENDOTRACHEAL AIRWAY Routine 12/20/2024 8:00 [...] EDT from Last 3 Months Results * CT MSK OUTSIDE IMAGES (01/16/2025 5:43 PM EDT) Anatomical Region Laterality Modality Computed Tomogra phy 01/16/2025 5:43 PM EDT us External Provider IMG CT PROCEDURES Final Result * (ABNORMAL) CBC and Differential (01/03/2025 1:04 AM EDT) Only the most recent of8 resultswithin the time period is included. WBC Count 9.38 3.70 - 10.30 10*3/uL LAB HEMATOLOGY METHOD 01/03/2025 1:39 AM EDT [facility] RBC Count 5.65 4.60 - 6.10 10*6/uL LAB HEMATOLOGY METHOD 01/03/2025 1:39 AM EDT [facility] HGB 16.2 13.7 - 17.5 g/dL LAB HEMATOLOGY METHOD 01/03/2025 1:39 AM EDT [facility] HCT 49.9 40.0 - 51.0 % LAB HEMATOLOGY METHOD 01/03/2025 1:39 AM EDT [facility] Platelet Count 230 155 - 369 10*3/uL LAB HEMATOLOGY METHOD 01/03/2025 1:39 AM EDT [facility] MCV 88 79 - 98 fL LAB HEMATOLOGY METHOD 01/03/2025 1:39 AM EDT [facility] MCH 28.7 26.0 - 32.0 pg LAB HEMATOLOGY METHOD 01/03/2025 1:39 AM EDT [facility] MCHC 32.5 30.7 - 35.5 g/dL LAB HEMATOLOGY METHOD 01/03/2025 1:39 AM EDT [facility] RDW 19.6(H) 11.5 - 14.5 % LAB HEMATOLOGY METHOD 01/03/2025 1:39 AM EDT [facility] MPV 10.8 8.8 - 12.5 fL LAB HEMATOLOGY METHOD 01/03/2025 1:39 AM EDT [facility] nRBC 0.0 <=0.0 per 100 WBCs LAB HEMATOLOGY METHOD 01/03/2025 1:39 AM EDT [facility] Differential Type Automated LAB HEMATOLOGY METHOD 01/03/2025 1:39 AM EDT [facility] Neutrophils % 83 % LAB HEMATOLOGY METHOD 01/03/2025 1:39 AM EDT [facility] Lymphocytes % 11 % LAB HEMATOLOGY METHOD 01/03/2025 1:39 AM EDT [facility] Monocytes % 5 % LAB HEMATOLOGY METHOD 01/03/2025 1:39 AM EDT [facility] Eosinophils % 1 % LAB HEMATOLOGY METHOD 01/03/2025 1:39 AM EDT [facility] Basophils % 0 % LAB HEMATOLOGY METHOD 01/03/2025 1:39 AM EDT [facility] Immature Granulocytes % 0 % LAB HEMATOLOGY METHOD 01/03/2025 1:39 AM EDT [facility] Neutrophils Absolute 7.83(H) 1.60 - 6.10 10*3/uL LAB HEMATOLOGY METHOD 01/03/2025 1:39 AM EDT [facility] Lymphocytes Absolute 1.00(L) 1.20 - 3.90 10*3/uL LAB HEMATOLOGY METHOD 01/03/2025 1:39 AM EDT [facility] Monocytes Absolute 0.42 0.30 - 0.90 10*3/uL LAB HEMATOLOGY METHOD 01/03/2025 1:39 AM EDT [facility] Eosinophils Absolute 0.06 0.00 - 0.50 10*3/uL LAB HEMATOLOGY METHOD 01/03/2025 1:39 AM EDT [facility] Basophils Absolute 0.04 0.00 - 0.10 10*3/uL LAB HEMATOLOGY METHOD 01/03/2025 1:39 AM EDT [facility] Immature Granulocytes Absolute 0.03 0.00 - 0.06 10*3/uL LAB HEMATOLOGY METHOD 01/03/2025 1:39 AM EDT [facility] Blood Venous blood specimen / Unknown Venipuncture / Unknown 01/03/2025 1:04 AM EDT 01/03/2025 1:31 AM EDT Narrative [facility] - 01/03/2025 1:39 AM EDT Therapeutic decision making should be based on absolute values, rather than percentages. us Ciro Ruelas MD LAB BLOOD ORDERABLES Final Resul t Performing Organization Address City/[facility]/ZIP Co de Phone Number [facility] [address] [place] [address] * Phosphorus (01/03/2025 1:04 AM EDT) Only the most recent of3 resultswithin the time period is included. Phosphorus, Plasma 3.7 2.5 - 4.5 mg/dL 01/03/2025 1:59 AM EDT [facility] Blood Venous blood specimen / Unknown Venipuncture / Unknown 01/03/2025 1:04 AM EDT 01/03/2025 1:31 AM EDT us Ciro Ruelas MD LAB BLOOD ORDERABLES Final Resul t [facility] [address] [place] [address] * Magnesium, Plasma (01/03/2025 1:04 AM EDT) Only the most recent of4 resultswithin the time period is included. [facility] Magnesium, Plasma 1.9 1.9 - 2.4 mg/dL 01/03/2025 1:59 AM EDT [facility] Blood Venous blood specimen / Unknown Venipuncture / Unknown 01/03/2025 1:04 AM EDT 01/03/2025 1:31 AM EDT us Ciro Ruelas MD LAB BLOOD ORDERABLES Final Resul t Performing Organization Address City/[facility]/ZIP Co de Phone Number [facility] [address] [place] [address] * (ABNORMAL) Comprehensive metabolic panel (01/03/2025 1:04 AM EDT) Only the most recent of7 resultswithin the time period is included. [facility] Glucose, Plasma 115(H) 74 - 99 mg/dL 01/03/2025 1:59 AM EDT [facility] BUN, Plasma 10 8 - 23 mg/dL 01/03/2025 1:59 AM EDT [facility] Creatinine, Plasma 0.98 0.70 - 1.20 mg/dL 01/03/2025 1:59 AM EDT [facility] BUN/Creatinine Ratio 10 01/03/2025 1:59 AM EDT [facility] Sodium, Plasma 140 136 - 145 mmol/L 01/03/2025 1:59 AM EDT [facility] Potassium, Plasma 4.1 3.6 - 4.9 mmol/L 01/03/2025 1:59 AM EDT [facility] Chloride, Plasma 103 97 - 107 mmol/L 01/03/2025 1:59 AM EDT [facility] CO2, Plasma 23 22 - 29 mmol/L 01/03/2025 1:59 AM EDT [facility] Anion Gap 14 6 - 16 mmol/L 01/03/2025 1:59 AM EDT [facility] Total Calcium, Plasma 8.6(L) 8.9 - 10.2 mg/dL 01/03/2025 1:59 AM EDT [facility] Total Protein 5.7(L) 6.3 - 7.9 g/dL 01/03/2025 1:59 AM EDT [facility] Albumin, Plasma 3.3(L) 3.5 - 5.2 g/dL 01/03/2025 1:59 AM EDT [facility] AST, Plasma 78(H) 10 - 50 U/L 01/03/2025 1:59 AM EDT [facility] ALT, Plasma 219(H) 10 - 50 U/L 01/03/2025 1:59 AM EDT [facility] Alkaline Phosphatase, Plasma 278(H) 40 - 115 U/L 01/03/2025 1:59 AM EDT [facility] Total Bilirubin, Plasma 6.3(H) 0.2 - 1.1 mg/dL 01/03/2025 1:59 AM EDT [facility] eGFRcr 86.1 mL/min/1.7 3m*2 01/03/2025 1:59 AM EDT [facility] Comment:Reported eGFRcr in m L/min/1.73m2 is based the CKD-EPI 2020 equation that does not use a race coefficient. Blood Venous blood specimen / Unknown Venipuncture / Unknown 01/03/2025 1:04 AM EDT 01/03/2025 1:31 AM EDT Ciro Ruelas MD LAB BLOOD ORDERABLES Final Resul t [facility] [address] [place] [address] * ERCP (01/02/2025 5:33 PM EDT) Anatomical [...] Beverly Camargo CRNA, Iglesia Kumar CRNA Endo Milling Supervisor Shahbaz Colorado MD Anesthesiologist Zoe [place] MD Proceduralist Kyler Mo MD Proceduralist Jillian Quevedo Endo Milling Supervisor Preprocedure A history and physical has been [...] User STENT BILIARY 3.3 X 70MM - [id number] Bile Duct Implanted INTERFACE, SUPPLY USAGE IN STENT [facility] 5FR X 3CM - [id number] Pancreas Implanted INTERFACE, SUPPLY USAGE IN Findings Prior to ERCP, diagnostic EGD was performed with standard gastroscope. This showed some mild gastritis in the stomach. The major papilla was eagle. The common bile duct and pancreatic duct [...] IMG FLUOROSCOPY PROCEDURES Final Result IMAGING * OR AN ELECTIVE ENDOTRACHEAL AIRWAY, PB ANESTHESIA PLACEHOLDER (01/02/2025 4:38 PM EDT) Narrative Beverly Esquivel CRNA - 01/02/2025 4:38 PM EDT Beverly Esquivel CRNA 01/02/2025 4:48 PM Airway Date/Time: 01/02/2025 4:38 PM Reason: elective Airway not difficult General Information and Staff Patient location during procedure: OR YARD HAND: Beverly Esquivel CRNA Performed: YARD HAND Patient Condition Indications for airway management: anesthesia [...] No change to dentition. us Beverly Esquivel YARD HAND ANESTHESIA ORDERABLES Final Result * Potassium (01/02/2025 4:12 AM EDT) Potassium, Plasma 3.8 3.6 - 4.9 mmol/L 01/02/2025 4:58 AM EDT [facility] Blood Venous blood specimen / Unknown Venipuncture / Unknown 01/02/2025 4:12 AM EDT 01/02/2025 4:35 AM EDT us Ciro Ruelas MD LAB BLOOD ORDERABLES Final Resul t Performing Organization Address City/[facility]/ZIP Co de Phone Number [facility] [address] [place] [address] * (ABNORMAL) Lipase (01/01/2025 8:45 PM EDT) Only the most recent of4 resultswithin the time period is included. Lipase, Plasma 474(H) 19 - 63 U/L 01/01/2025 9:20 PM EDT [facility] Blood Venous blood specimen / Unknown Venipuncture / Unknown 01/01/2025 8:45 PM EDT 01/01/2025 8:48 PM EDT us John Shelton MD LAB BLOOD ORDERABLES Final Result Performing Organization Address City/[facility]/[place] [address] * CT Abdomen Pelvis w IV Contrast [...] 3.7(H) <=0.3 mg/dL 01/01/2025 6:32 PM EDT [facility] Comment:Hemolyzed, result ma y be falsely decreased. Blood Venous blood specimen / Unknown Venipuncture / Unknown 01/01/2025 5:24 PM EDT 01/01/2025 5:42 PM EDT us John Shelton MD LAB BLOOD ORDERABLES Final Result [facility] [address] [place] [address] * ECHO, ADULT TRANSTHORACIC COMPLETE (12/26/2024 9:55 [...] Root Diam 31 mm ALLEN ISCV PA OR(ACCEL) 30.6 mmHg ALLEN ISCV LVLs ap2 8.8 [...] is no recent study available for direct azsf-iv-wqvu comparison. Left Ventricle The left ventricle is [...] is no recent study available for direct uvth-vh-bphv comparison. us Aramis Abreu MD CV ECHO PROCEDURES Final Resul t * (ABNORMAL) N-Terminal Probnp (12/26/2024 2:50 AM EDT) Only the most recent of2 resultswithin the time period is included. N-Terminal, PROBNP, Plasma 4,363(H) 0 - 899 pg/mL 12/26/2024 3:46 AM EDT [facility] Blood Venous blood specimen / Unknown Venipuncture / Unknown 12/26/2024 2:50 AM EDT 12/26/2024 3:09 AM EDT us Aramis Abreu MD LAB BLOOD ORDERABLES Final Res ult [facility] [address] [place] [address] * Iron & Total Iron Binding Capacity, Plasma (Includes Transferrin) (12/26/2024 2:50 AM EDT) Iron, Plasma 56 50 - 170 ug/dL 12/26/2024 3:46 AM EDT [facility] Transferrin, Plasma 214 200 - 360 mg/dL 12/26/2024 3:46 AM EDT [facility] Total Iron Binding Capacity, Plasma 268 240 - 450 ug/mL 12/26/2024 3:46 AM EDT [facility] Transferrin Saturation 21 14 - 50 % 12/26/2024 3:46 AM EDT [facility] Blood Venous blood specimen / Unknown Venipuncture / Unknown 12/26/2024 2:50 AM EDT 12/26/2024 3:09 AM EDT us Aramis Abreu MD LAB BLOOD ORDERABLES Final Res ult Performing Organization Address [facility] Co de Phone Number [facility] [address] [place] [address] * (ABNORMAL) Cancer antigen 19-9 (12/26/2024 2:50 AM EDT) Only the most recent of2 resultswithin the time period is included. CA 19.9 248(H) <36 U/mL 12/26/2024 3:56 AM EDT [facility] Blood Venous blood specimen / Unknown Venipuncture / Unknown 12/26/2024 2:50 AM EDT 12/26/2024 3:17 AM EDT Narrative [facility] - 12/26/2024 3:56 AM EDT Performed by Luiza electrochemiluminescent immunoassay. Results obtained with different test methods or kits cannot be used interchangeably. us Aramis Abreu MD LAB BLOOD ORDERABLES Final Res ult Performing Organization Address City/[facility]/ZIP Co de Phone Number [facility] [address] [place] [address] * (ABNORMAL) APTT (12/26/2024 2:50 AM EDT) aPTT 36(H) 25 - 35 sec 12/26/2024 3:24 AM EDT [facility] Blood Venous blood specimen / Unknown Venipuncture / Unknown 12/26/2024 2:50 AM EDT 12/26/2024 3:09 AM EDT us Aramis Abreu MD LAB BLOOD ORDERABLES Final Res ult Performing Organization Address [facility] de Phone Number [facility] [address] [place] [address] * (ABNORMAL) PT/INR (12/26/2024 2:50 AM EDT) Only the most recent of3 resultswithin the time period is included. Prothrombin Time 16.6(H) 12.0 - 14.3 sec 12/26/2024 3:24 AM EDT [facility] INR 1.4(H) 0.9 - 1.1 12/26/2024 3:24 AM EDT [facility] Blood Venous blood specimen / Unknown Venipuncture / Unknown 12/26/2024 2:50 AM EDT 12/26/2024 3:09 AM EDT Narrative [facility] - 12/26/2024 3:24 AM EDT OPTIMAL INR RANGES FOR PATIENT ON ORAL ANTICOAGULANT THERAPY Prevention of venous thromboembolism INR 2.0 to 3.0 In patients with heart disease: Atrial fibrillation INR 2.0 to 3.0 Valvular heart disease INR 2.0 to 3.0 Tissue heart valves INR 2.0 to 3.0 Mechanical prosthetic valves INR 2.5 to 3.5 Prevention of recurrent SC INR 2.5 to 3.5 us Aramis Abreu MD LAB BLOOD ORDERABLES Final Res ult Performing Organization Address City/[facility] Co de Phone Number [facility] [address] [place] [address] * (ABNORMAL) Prealbumin (12/26/2024 2:50 AM EDT) Prealbumin, Plasma 10.0(L) 20.0 - 41.0 mg/dL 12/26/2024 3:47 AM EDT [facility] Blood Venous blood specimen / Unknown Venipuncture / Unknown 12/26/2024 2:50 AM EDT 12/26/2024 3:09 AM EDT us Iesha Pride MD LAB BLOOD ORDERABLE S Final Result Performing Organization Address City/[facility] Co de Phone Number [facility] [address] [place] [address] * (ABNORMAL) Hemoglobin A1c (12/26/2024 2:50 AM EDT) Only the most recent of2 resultswithin the time period is included. Hemoglobin A1c 6.5(H) <5.7 % 12/26/2024 10:53 AM EDT [facility] Blood Venous blood specimen / Unknown Venipuncture / Unknown 12/26/2024 2:50 AM EDT 12/26/2024 3:17 AM EDT Narrative [facility] - 12/26/2024 10:53 AM EDT HA1C Interpretive Data: Diagnosis of Diabetes: Diabetic > or = 6.5% Pre-diabetic 5.7 to 6.4% Non-diabetic < or = 5.6% Glycemic Targets for Type I and Type II Diabetics: Non- Adults <7.0% Adults <6.0% Children and Adolescents <7.5% Source: [place] [employer]. Standards of medical care in diabetes,2017. Diabetes Care.2017:40 (suppl 1):S1-S135. us Aramis Abreu MD LAB BLOOD ORDERABLES Final Res ult Performing Organization Address City/[facility] Co de Phone Number [facility] [address] [place] [address] * Folate (12/26/2024 2:50 AM EDT) Folate, Serum 5.8 >4.6 ng/mL 12/26/2024 4:05 AM EDT [facility] Blood Venous blood specimen / Unknown Venipuncture / Unknown 12/26/2024 2:50 AM EDT 12/26/2024 3:17 AM EDT us Aramis Abreu MD LAB BLOOD ORDERABLES Final Res ult [facility] [address] [place] [address] * Ferritin (12/26/2024 2:50 AM EDT) Ferritin, Serum 113 20 - 400 ng/mL 12/26/2024 3:56 AM EDT [facility] Blood Venous blood specimen / Unknown Venipuncture / Unknown 12/26/2024 2:50 AM EDT 12/26/2024 3:17 AM EDT us Aramis Abreu MD LAB BLOOD ORDERABLES Final Res ult Performing Organization Address City/[facility]/ZIP Co de Phone Number [facility] [address] [place] [address] * Vitamin B12 (12/26/2024 2:50 AM EDT) Vitamin B12, Serum 979 210 - 1,033 pg/mL 12/26/2024 4:05 AM EDT [facility] Blood Venous blood specimen / Unknown Venipuncture / Unknown 12/26/2024 2:50 AM EDT 12/26/2024 3:17 AM EDT us Aramis Abreu MD LAB BLOOD ORDERABLES Final Res ult Performing Organization Address [facility] Co de Phone Number [facility] [address] [place] [address] * Cortisol (12/26/2024 2:50 AM EDT) Cortisol 13.00 Before 10am: 3.7 - 19.4. After 5pm: 2.9 - 17.3 ug/dL 12/26/2024 4:24 AM EDT [facility] Comment:Testing performed on [employer], standardized against [facility] Reference Standard concentration values assigned by LC-MS/MS and verified by BCR 192 and BCR 193 certified reference materials. Blood Venous blood specimen / Unknown Venipuncture / Unknown 12/26/2024 2:50 AM EDT 12/26/2024 3:17 AM EDT us Aramis Abreu MD LAB REF LAB BLOOD AND FLUID OR D Final Result Performing Organization Address [facility]/ZIP Co de Phone Number [facility] [address] [place] [address] * (ABNORMAL) CEA (12/26/2024 2:50 AM EDT) Pathologist [facility] CEA, Serum 8.5(H) <4.0 ng/mL 12/26/2024 3:56 AM EDT [facility] Blood Venous blood specimen / Unknown Venipuncture / Unknown 12/26/2024 2:50 AM EDT 12/26/2024 3:17 AM EDT Narrative [facility] - 12/26/2024 3:56 AM EDT Normal range for smokers: < 5.5 ng/ml Normal range for non-smokers: <=4.0 ng/ml Performed by [employer] electrochemiluminescent immunoassay. Results obtained with different test methods or kits cannot be used interchangeably. Aramis Abreu MD LAB BLOOD ORDERABLES Final Res ult Performing Organization Address [facility] Co de Phone Number [facility] [address] [place] [address] * (ABNORMAL) Hepatic Function Panel (12/26/2024 2:50 AM EDT) [facility] Conjugated Bilirubin, Plasma 0.6(H) <=0.3 mg/dL 12/26/2024 3:46 AM EDT [facility] Comment:Hemolyzed, result ma y be falsely decreased. Alkaline Phosphatase, Plasma 160(H) 40 - 115 U/L 12/26/2024 3:46 AM EDT [facility] Total Bilirubin, Plasma 1.8(H) 0.2 - 1.1 mg/dL 12/26/2024 3:46 AM EDT [facility] Albumin, Plasma 3.4(L) 3.5 - 5.2 g/dL 12/26/2024 3:46 AM EDT [facility] Total Protein 6.0(L) 6.3 - 7.9 g/dL 12/26/2024 3:46 AM EDT [facility] ALT, Plasma 102(H) 10 - 50 U/L 12/26/2024 3:46 AM EDT [facility] AST, Plasma 32 10 - 50 U/L 12/26/2024 3:46 AM EDT [facility] Comment:Hemolyzed, result ma y be falsely increased. Blood Venous blood specimen / Unknown Venipuncture / Unknown 12/26/2024 2:50 AM EDT 12/26/2024 3:09 AM EDT us Aramis Abreu MD LAB BLOOD ORDERABLES Final Res ult [facility] [address] [place] [address] * (ABNORMAL) Lipid panel (12/26/2024 2:50 AM EDT) Cholesterol, Plasma 119 <200 mg/dL 12/26/2024 3:46 AM EDT [facility] Comment: Cholesterol Reference Range (age >17 years): Desirable <200 mg/dL Borderline 200 to 239 mg/dL Undesirable >239 mg/dL HDL 37(L) >=40 mg/dL 12/26/2024 3:46 AM EDT [facility] Comment: HDL Cholesterol Reference Ranges (age >17 years): Female, acceptable > or = 50 mg/dL Male, acceptable > or = 40 mg/dL Triglycerides, Plasma 75 <150 mg/dL 12/26/2024 3:46 AM EDT [facility] Comment: Triglyceride Reference Range (age >17 years): Desirable: <150 mg/dL Borderline high: 150 to 199 mg/dL High: 200 to 499 mg/dL Very high: >499 mg/dL Increased risk of pancreatitis: >1000 mg/dL Cholesterol/HDL Ratio 3 12/26/2024 3:46 AM EDT [facility] LDL, Calculated 67 <100 mg/dL 3:46 AM EDT [facility] Comment: LDL Cholesterol Reference Range [...] 12 hours? No 12/26/2024 3:46 AM EDT [facility] Blood Venous blood specimen / Unknown Venipuncture / Unknown 12/26/2024 2:50 AM EDT 12/26/2024 3:09 AM EDT us Aramis Abreu MD LAB BLOOD ORDERABLES Final Res ult [facility] [address] [place] [address] * (ABNORMAL) Basic metabolic panel (12/26/2024 2:50 AM EDT) Glucose, Plasma 128(H) 74 - 99 mg/dL 12/26/2024 3:47 AM EDT [facility] BUN, Plasma 18 8 - 23 mg/dL 12/26/2024 3:47 AM EDT [facility] Creatinine, Plasma 1.10 0.70 - 1.20 mg/dL 12/26/2024 3:47 AM EDT [facility] BUN/Creatinine Ratio 16 12/26/2024 3:47 AM EDT [facility] Sodium, Plasma 139 136 - 145 mmol/L 12/26/2024 3:47 AM EDT [facility] Potassium, Plasma 4.7 3.6 - 4.9 mmol/L 12/26/2024 3:47 AM EDT [facility] Chloride, Plasma 105 97 - 107 mmol/L 12/26/2024 3:47 AM EDT [facility] CO2, Plasma 23 22 - 29 mmol/L 12/26/2024 3:47 AM EDT [facility] Anion Gap 11 6 - 16 mmol/L 12/26/2024 3:47 AM EDT [facility] Total Calcium, Plasma 8.9 8.9 - 10.2 mg/dL 12/26/2024 3:47 AM EDT [facility] eGFRcr 75.0 mL/min/1.7 3m*2 12/26/2024 3:47 AM EDT [facility] Comment:Reported eGFRcr in m L/min/1.73m2 is based the CKD-EPI 2020 equation that does not use a race coefficient. Blood Venous blood specimen / Unknown Venipuncture / Unknown 12/26/2024 2:50 AM EDT 12/26/2024 3:09 AM EDT us Aramis Abreu MD LAB BLOOD ORDERABLES Final Res ult [facility] [address] [place] [address] * CT Chest w IV Contrast (12/25/2024 [...] sample was sent for cytology analysis. Onsite quencher operator was not present Recommendations Await pathology [...] fo this. They report Dr. Chirinos in [place] can see him regularly, if any of these occur. Indication Mass of head of pancreas Medications See anesthesia record for anesthesia administered medications. 500 mg IV Levaquin 100 mg OR indomethacin 1.0 mg IV glucagon (given as two doses of 0.5 mg) Staff Staff Role Sae Barriga MD Anesthesiologist Darian Jaramillo MD Proceduralist Pascual Dunlap, Dominic Umana CRNA Endo Milling Supervisor Pedro Luis Henry RN Endo Nurse Preprocedure [...] sample was sent for cytology analysis. Onsite quencher operator was not present us Kiko Ball MD GI PROCEDURE ORDERABLES Final Re sult * ERCP (12/20/2024 9:46 AM EDT) Anatomical Region Laterality Modality Endoscopy Addenda Addendum by Darian Jaramillo MD on 12/20/2024 10:09 AM EDT Table formatting from the original result was not included. Impression Prior to introduction of the duodenoscope, technical data analyst image was obtained. This showed no foreign [...] medications. 500 mg IV Levaquin 100 mg OR indomethacin 1.0 mg IV glucagon (given as two doses of 0.5 mg) Staff Staff Role Sae Barriga MD Anesthesiologist Darian Jaramillo MD Proceduralist Pascual Dunlap, Dominic Umana CRNA Endo Milling Supervisor Pedro Luis Henry, KENNETH Endo Nurse Preprocedure A history and physical [...] Findings Prior to introduction of the duodenoscope, technical data analyst image was obtained. This showed no foreign [...] 8:21 AM EDT) Case Report Cytology Case: [id number] Authorizing Provider: Darian Jaramillo MD Collected: 12/20/2024 08 Ordering Location: [facility] Endoscopy Received: 12/20/2024 1104 Pathologist: Carol Hyman MD Specimen: Pancreas, Fine Needle Aspiration, HEAD OF PANCREAS MASS, ENDOSCOPIC ULTRASOUND GUIDED FINE NEEDLE ASPIRATION 12/21/2024 4:16 PM EDT [facility] Final Diagnosis A. HEAD OF PANCREAS MASS, ENDOSCOPIC ULTRASOUND GUIDED FINE NEEDLE ASPIRATION: - SCANT MARKEDLY ATYPICAL CELLS, MOST COMPATIBLE WITH ADENOCARCINOMA (SEE COMMENT). 12/21/2024 4:16 PM EDT [facility] at 1616 EDT Comment Clinical and imaging correlation is suggested. 12/21/2024 4:16 PM EDT [facility] Intradepartmental Consultation with Agreement Dr. Dayami Marks 12/21/2024 4:16 PM EDT [facility] Immediate Evaluation FNA performed by Dr. Jaramillo Number of sticks: Not provided This service has been rendered in part by a resident. A pathologist has personally reviewed the slides/tissue and has rendered and is responsible for diagnosis for the diagnosis that appears on the report. 12/21/2024 4:16 PM EDT [facility] Gross Description A. HEAD OF PANCREAS MASS, ENDOSCOPIC ULTRASOUND GUIDED FINE NEEDLE ASPIRATION 10 ml's tinted Needle rinse fluid processed as ThinPrep and cellblock for complete evaluation of sample. Slides were NOT received Cold Time: 4h 39m 12/21/2024 4:16 PM EDT [facility] Note: A resident was involved in the service. I attest I examined the relevant preparations for the specimens and confirmed the diagnosis or interpretation. 12/21/2024 4:16 PM EDT [facility] Clinical Information K86.89 - Mass of head of pancreas [ICD-10-CM] 12/21/2024 4:16 PM EDT [facility] Fine Needle Aspirate Pancreatic structure / Unknown 12/20/2024 8:21 AM EDT 12/20/2024 11:04 AM EDT us Darian Jaramillo MD LAB CYTOLOGY ORDERABLES Fin al Result [facility] [address] [place] [address] * Surgical Pathology Exam (12/20/2024 8:10 AM EDT) Case Report Surgical Pathology Case: [id number] Authorizing Provider: Darian Jaramillo MD Collected: 12/20/2024 0810 Ordering Location: [facility] Endoscopy Received: 12/20/2024 1014 Pathologist: Jet Mike MD Specimen: Stomach, Gastric Bx 12/21/2024 9:37 AM EDT [facility] Final Diagnosis STOMACH, BIOPSY: - NO PATHOLOGIC ABNORMALITY - NO EVIDENCE OF HELICOBACTER-L CARLOTA ORGANISMS ON ROUTINE STAIN 12/21/2024 9:37 AM EDT [facility] at 0937 EDT Clinical Information K86.89 - Mass of head of pancreas [ICD-10-CM] 12/21/2024 9:37 AM EDT [facility] Gross Description A. GASTRIC BX Received in formalin labeled gastric biopsy are 4 swanson-brown soft tissue fragments measuring 0.2-0.4 cm in greatest dimension. Entirely submitted in cassette A1. Cold Time: <1m Eve Palmer 12/21/2024 9:37 AM EDT [facility] Tissue Stomach structure / Unknown 12/20/2024 8:10 AM EDT 12/20/2024 10:14 AM EDT us Darian Jaramillo MD LAB PATHOLOGY ORDERABLES Fi nal Result [facility] [address] [place] [address] * OR AN ELECTIVE ENDOTRACHEAL AIRWAY, PB ANESTHESIA PLACEHOLDER (12/20/2024 8:00 AM EDT) Narrative Pascual Dunlap CRNA - 12/20/2024 8:00 AM EDT Pascual Dunlap CRNA 12/20/2024 8:05 AM Airway Date/Time: 12/20/2024 8:00 AM Reason: elective Airway not difficult General Information and Staff Patient location during procedure: OR Anesthesiologist: Sae Barriga MD YARD HAND: Pascual Dunlap CRNA Performed: YARD HAND Patient Condition Indications for airway management: anesthesia [...] using the following sequences: coronal single shot [id number] fast spin echo, axial T2 weighted sequences [...] LAB HEMATOLOGY METHOD 12/05/2024 8:18 PM EDT [facility] Blood Venous blood specimen / Unknown Venipuncture / Unknown 12/05/2024 8:08 PM EDT 12/05/2024 8:13 PM EDT us Raysa CAMARILLO LAB BLOOD ORDERABLES Final R esult [facility] [address] [place] [address] * (ABNORMAL) Pain Management, Quantitative Urine Drug Testing (12/04/2024 11:00 AM EDT) [facility] [place] Alprazolam <20 <20 ng/mL 12/06 9:57 PM EDT [facility] [place] Midazolam <20 <20 ng/mL 2024 9:57 PM EDT [facility] [place] Triazolam <20 <20 ng/mL 2024 9:57 PM EDT [facility] Alprazolam <10 <10 ng/mL 12/06/2024 9:57 PM EDT [facility] Aminoclonazepam <20 <20 ng/mL 9:57 PM EDT [facility] Amphetamine <50 <50 ng/mL 12/06/2024 9:57 PM EDT [facility] Benzoylecgonine <50 <50 ng/mL 9:57 PM EDT [facility] Buprenorphine <10 <10 ng/mL 12/06/2024 9:57 PM EDT [facility] Buprenorphine Glucuronide <50 <50 ng/mL 12/06/2024 9:57 PM EDT [facility] Butalbital <50 <50 ng/mL 12/06/2024 9:57 PM EDT [facility] 9 Carboxy THC >250(H) <10 ng/mL 12/06/2024 9:57 PM EDT [facility] 9 Carboxy THC Glucuronide >500(H) <25 ng/mL 12/06/2024 9:57 PM EDT [facility] Clonazepam <10 <10 ng/mL 12/06/2024 9:57 PM EDT [facility] Codeine <50 <50 ng/mL 12/06/2024 9:57 PM EDT [facility] Codeine Glucuronide <50 <50 ng/mL 12/06 9:57 PM EDT [facility] Cyclobenzaprine <50 <50 ng/mL 9:57 PM EDT [facility] Desmethyl Tramadol <50 <50 ng/mL 2024 9:57 PM EDT [facility] Diazepam <10 <10 ng/mL 12/06/2024 9:57 PM EDT [facility] EDDP - Methadone Metabolite <50 <50 ng/mL 12/06/2024 9:57 PM EDT [facility] Fentanyl <1 <1 ng/mL 12/06/2024 9:57 PM EDT [facility] Hydrocodone <50 <50 ng/mL 12/06/2024 9:57 PM EDT [facility] Hydromorphone <50 <50 ng/mL 12/06/2024 9:57 PM EDT [facility] Hydromorphone Glucuronide <50 <50 ng/mL 12/06/2024 9:57 PM EDT [facility] Lorazepam <20 <20 ng/mL 12/06/2024 9:57 PM EDT [facility] Lorazepam Glucuronide <50 <50 ng/mL 12/06/2024 9:57 PM EDT [facility] MDA <50 <50 ng/mL 12/06/2024 9:57 PM EDT [facility] MDMA <50 <50 ng/mL 12/06/2024 9:57 PM EDT [facility] Meperidine <50 <50 ng/mL 12/06/2024 9:57 PM EDT [facility] Methadone <50 <50 ng/mL 12/06/2024 9:57 PM EDT [facility] Methamphetamine <50 <50 ng/mL 9:57 PM EDT [facility] Methylphenidate <50 <50 ng/mL 9:57 PM EDT [facility] 6 Monoacetyl morphine <10 <10 ng/mL 12/06/2024 9:57 PM EDT [facility] Morphine >1,000(H) <50 ng/mL 12/06/2024 9:57 PM EDT [facility] Morphine Glucuronide >1,000(H) <50 ng/mL 06/1 07/2024 9:57 PM EDT [facility] Naloxone <50 <50 ng/mL 12/06/2024 9:57 PM EDT [facility] Naloxone Glucuronide <50 <50 ng/mL 11/25 9:57 PM EDT [facility] Norbuprenorphine <10 <10 ng/mL 12/07/19 9:57 PM EDT [facility] Norbuprenorphine Glucuronide <50 <50 ng/mL 12/06/2024 9:57 PM EDT [facility] Nordiazepam <20 <20 ng/mL 12/06/2024 9:57 PM EDT [facility] Norfentanyl <2 <2 ng/mL 12/06/2024 9:57 PM EDT [facility] Normeperidine <50 <50 ng/mL 12/06/2024 9:57 PM EDT [facility] PCP Quant, Ur <50 <50 ng/mL 12/06/2024 9:57 PM EDT [facility] Phenobarbital <50 <50 ng/mL 12/06/2024 9:57 PM EDT [facility] Oxazepam <20 <20 ng/mL 12/06/2024 9:57 PM EDT [facility] Oxazepam Glucuronide <50 <50 ng/mL 11/25 9:57 PM EDT [facility] Oxycodone <50 <50 ng/mL 12/06/2024 9:57 PM EDT [facility] Oxymorphone <50 <50 ng/mL 12/06/2024 9:57 PM EDT [facility] Oxymorphone Glucuronide <50 <50 ng/mL 12/06/2024 9:57 PM EDT [facility] Secobarbital <50 <50 ng/mL 12/06/2024 9:57 PM EDT [facility] Tramadol <50 <50 ng/mL 12/06/2024 9:57 PM EDT [facility] Temazepam <20 <20 ng/mL 12/06/2024 9:57 PM EDT [facility] Temazepam Glucuronide <50 <50 ng/mL 12/06/2024 9:57 PM EDT [facility] Urine Urine specimen obtained by clean catch procedure / Unknown Non-blood Collection / Unknown 12/04/2024 11:00 AM EDT 12/04/2024 11:17 AM EDT Narrative [facility] - 12/06/2024 9:57 PM EDT [...] laboratory. Test performed by LC-MS/MS at the [facility]. This test was developed and its performance characteristics determined by [facility]. It has not been cleared or approved by the FDA. The laboratory is regulated under CLIA as qualified to perform high-complexity testing. This test is used for clinical purposes. Jeff Cramer APRN LAB URINE ORDERABLES Final Re sult Performing Organization Address [facility] Co de Phone Number [facility] [address] [place] [address] * Urinalysis Microscopic Examination (12/04/2024 11:00 AM EDT) Urine Urine specimen obtained by clean catch procedure / Unknown Non-blood Collection / Unknown 12/04/2024 11:00 AM EDT 12/04/2024 11:17 AM EDT Jeff Cramer APRN LAB URINE ORDERABLES Final Re sult Performing Organization Address [facility] Co de Phone Number [facility] [address] [place] [address] * Urea Nitrogen, Random Urine (12/04/2024 11:00 AM EDT) Urea Nitrogen, Urine 1,201 mg/dL 12/04/2024 1:34 PM EDT [facility] Urine Urine specimen obtained by clean catch procedure / Unknown Non-blood Collection / Unknown 12/04/2024 11:00 AM EDT 12/04/2024 11:17 AM EDT Jeff Cramer APRN LAB URINE ORDERABLES Final Re sult Performing Organization Address [facility] de Phone Number [facility] [address] [place] [address] * Sodium, Random, Urine (12/04/2024 11:00 AM EDT) Sodium, Urine 34 mmol/L 12/04/2024 11:53 AM EDT [facility] Urine Urine specimen obtained by clean catch procedure / Unknown Non-blood Collection / Unknown 12/04/2024 11:00 AM EDT 12/04/2024 11:17 AM EDT Jeff Cramer APRN LAB URINE ORDERABLES Final Re sult Performing Organization Address [facility] Phone Number [facility] [address] [place] [address] * Protein, Random, Urine with Creatinine (12/04/2024 11:00 AM EDT) Protein, Urine 18 mg/dL 12/04/2024 11:53 AM EDT [facility] Creatinine, Urine 195 mg/dL 12/04/2024 11:53 AM EDT [facility] Protein/Creati nine Ratio 0.1 mg/mg Creat 12/04/2024 11:53 AM EDT [facility] Urine Urine specimen obtained by clean catch procedure / Unknown Non-blood Collection / Unknown 12/04/2024 11:00 AM EDT 12/04/2024 11:17 AM EDT Jeff Cramer APRN LAB URINE ORDERABLES Final Re sult Performing Organization Address [facility] Phone Number [facility] [address] [place] [address] * (ABNORMAL) Comprehensive Urine Drug Screening, Qualitative Assay, >= 27 Drug Classes (1:00 AM EDT) Acetaminophen Negative Negative 12/05/2024 6:03 PM EDT [facility] Alprazolam Negative Negative 12/05/2024 6:03 PM EDT [facility] Amantadine Negative Negative 12/05/2024 6:03 PM EDT [facility] Amitriptyline Negative Negative 12/05/2024 6:03 PM EDT [facility] Amphetamine Negative Negative 12/05/2024 6:03 PM EDT [facility] Atenolol Negative Negative 12/05/2024 6:03 PM EDT [facility] Benzoylecgonine Negative Negative 6:03 PM EDT [facility] Bisoprolol Negative Negative 12/05/2024 6:03 PM EDT [facility] Bupropion Negative Negative 12/05/2024 6:03 PM EDT [facility] Butalbital Negative Negative 12/05/2024 6:03 PM EDT [facility] Carbamazepine Negative Negative 12/05/2024 6:03 PM EDT [facility] Carisoprodol Negative Negative 12/05/2024 6:03 PM EDT [facility] Chlorpheniramine Negative Negative 12/06/19 6:03 PM EDT [facility] Citalopram Negative Negative 12/05/2024 6:03 PM EDT [facility] Clindamycin Negative Negative 12/05/2024 6:03 PM EDT [facility] Clonidine Negative Negative 12/05/2024 6:03 PM EDT [facility] Clopidogrel / Ticlopidine Negative Negative 12/05/2024 6:03 PM EDT [facility] Cocaethylene Negative Negative 12/05/2024 6:03 PM EDT [facility] Cocaine Negative Negative 12/05/2024 6:03 PM EDT [facility] Codeine Negative Negative 12/05/2024 6:03 PM EDT [facility] Cyclobenzaprine Negative Negative 6:03 PM EDT [facility] Desvenlafaxine Negative Negative 12/05/2024 6:03 PM EDT [facility] Dextromethorphan Negative Negative 12/06/19 6:03 PM EDT [facility] Diazepam Negative Negative 12/05/2024 6:03 PM EDT [facility] Diltiazem Negative Negative 12/05/2024 6:03 PM EDT [facility] Diphenhydramine Negative Negative 6:03 PM EDT [facility] Doxepine Negative Negative 12/05/2024 6:03 PM EDT [facility] Doxylamine Negative Negative 12/05/2024 6:03 PM EDT [facility] EDDP-Methadone metabolite Negative Negative 12/05/2024 6:03 PM EDT [facility] Fentanyl Negative Negative 12/05/2024 6:03 PM EDT [facility] Fluconazole Negative Negative 12/05/2024 6:03 PM EDT [facility] Fluoxetine Negative Negative 12/05/2024 6:03 PM EDT [facility] Guaifenesin Negative Negative 12/05/2024 6:03 PM EDT [facility] Haloperidol Negative Negative 12/05/2024 6:03 PM EDT [facility] Heroin/6-BROOKE Negative Negative 12/05/2024 6:03 PM EDT [facility] Hydrocodone Negative Negative 12/05/2024 6:03 PM EDT [facility] Hydroxyzine / Cetirizine metabolite Negative Negative 12/05/2024 6:03 PM EDT [facility] Ibuprofen Negative Negative 12/05/2024 6:03 PM EDT [facility] Imipramine Negative Negative 12/05/2024 6:03 PM EDT [facility] Ketamine Negative Negative 12/05/2024 6:03 PM EDT [facility] Labetolol Negative Negative 12/05/2024 6:03 PM EDT [facility] Lamotrigine Negative Negative 12/05/2024 6:03 PM EDT [facility] Levetiracetam Negative Negative 12/05/2024 6:03 PM EDT [facility] Lidocaine Negative Negative 12/05/2024 6:03 PM EDT [facility] [facility] MDA Negative Negative 12/05/2024 6:03 PM EDT [facility] MDMA Negative Negative 12/05/2024 6:03 PM EDT [facility] Memantine Negative Negative 12/05/2024 6:03 PM EDT [facility] Meperidine Negative Negative 12/05/2024 6:03 PM EDT [facility] Meprobamate Negative Negative 12/05/2024 6:03 PM EDT [facility] Metaxalone Negative Negative 12/05/2024 6:03 PM EDT [facility] Methamphetamine Negative Negative 6:03 PM EDT [facility] Methocarbamol Negative Negative 12/05/2024 6:03 PM EDT [facility] Methylecgonine Negative Negative 12/05/2024 6:03 PM EDT [facility] Metoclopramide Negative Negative 12/05/2024 6:03 PM EDT [facility] Metoprolol Negative Negative 12/05/2024 6:03 PM EDT [facility] Metronidazole Negative Negative 12/05/2024 6:03 PM EDT [facility] Midazolam Negative Negative 12/05/2024 6:03 PM EDT [facility] Midazolam Metabolite Negative Negative 12/05/2024 6:03 PM EDT [facility] Mirtazapine Negative Negative 12/05/2024 6:03 PM EDT [facility] Misc Test Result Positive(A) Negative 025 6:03 PM EDT [facility] Comment: Gabapentin: Detected Morphine: Detected Naproxen Negative Negative 12/05/2024 6:03 PM EDT [facility] Nefazodone Negative Negative 12/05/2024 6:03 PM EDT [facility] Norfentanyl Negative Negative 12/05/2024 6:03 PM EDT [facility] Nortriptyline Negative Negative 12/05/2024 6:03 PM EDT [facility] Ordanstron Negative Negative 12/05/2024 6:03 PM EDT [facility] Oxcarbazepine Negative Negative 12/05/2024 6:03 PM EDT [facility] Oxycodone Negative Negative 12/05/2024 6:03 PM EDT [facility] Paroxethine Negative Negative 12/05/2024 6:03 PM EDT [facility] Phenobarbital Negative Negative 12/05/2024 6:03 PM EDT [facility] Phentermine Negative Negative 12/05/2024 6:03 PM EDT [facility] Phenytoin Negative Negative 12/05/2024 6:03 PM EDT [facility] Primidone Negative Negative 12/05/2024 6:03 PM EDT [facility] Promethazine Negative Negative 12/05/2024 6:03 PM EDT [facility] Propofol Negative Negative 12/05/2024 6:03 PM EDT [facility] Propranolol Negative Negative 12/05/2024 6:03 PM EDT [facility] Quetiapine Negative Negative 12/05/2024 6:03 PM EDT [facility] Quinine Negative Negative 12/05/2024 6:03 PM EDT [facility] Rantidine Negative Negative 12/05/2024 6:03 PM EDT [facility] Sertraline Negative Negative 12/05/2024 6:03 PM EDT [facility] Spironolactone Negative Negative 12/05/2024 6:03 PM EDT [facility] Tizanidine Negative Negative 12/05/2024 6:03 PM EDT [facility] Topiramate Negative Negative 12/05/2024 6:03 PM EDT [facility] Tramadol Negative Negative 12/05/2024 6:03 PM EDT [facility] Trazadone/ Trazadone metabolite Negative Negative 12/05/2024 6:03 PM EDT [facility] Trimethoprim Negative Negative 12/05/2024 6:03 PM EDT [facility] Valproic Acid Negative Negative 12/05/2024 6:03 PM EDT [facility] Venlafaxine Negative Negative 12/05/2024 6:03 PM EDT [facility] Verapamil Negative Negative 12/05/2024 6:03 PM EDT [facility] Zolpidem Negative Negative 12/05/2024 6:03 PM EDT [facility] Xylazine Negative Negative 12/05/2024 6:03 PM EDT [facility] Urine Urine specimen obtained by clean catch procedure / Unknown Non-blood Collection / Unknown 12/04/2024 11:00 AM EDT 12/04/2024 11:17 AM EDT us Jeff Cramer APRN LAB URINE ORDERABLES Final Re sult [facility] [address] [place] [address] * (ABNORMAL) Urinalysis with reflex microscopic (Culture NOT Included) (12/04/2024 11:00 AM EDT) Color, Urine Dark Yellow LAB URINALYSIS - AUTOMATED METHOD 12/04/2024 11:40 AM EDT [facility] Clarity, Urine Clear LAB URINALYSIS - AUTOMATED METHOD 12/04/2024 11:40 AM EDT [facility] Spec [place], Urine >1.030(H) 1.005 - 1.030 LAB URINALYSIS - AUTOMATED METHOD 12/04/2024 11:40 AM EDT [facility] pH, Urine 5.5 5.0 - 8.0 LAB URINALYSIS - AUTOMATED METHOD 12/04/2024 11:40 AM EDT [facility] Protein, Urine Trace(A) Negative mg/dL LAB URINALYSIS - AUTOMATED METHOD 12/04/2024 11:40 AM EDT [facility] Glucose, Urine Negative Negative mg/dL LAB URINALYSIS - AUTOMATED METHOD 12/04/2024 11:40 AM EDT [facility] Ketones, Urine Negative Negative mg/dL LAB URINALYSIS - AUTOMATED METHOD 12/04/2024 11:40 AM EDT [facility] Blood, Urine Negative Negative LAB URINALYSIS - AUTOMATED METHOD 12/04/2024 11:40 AM EDT [facility] Bilirubin, Urine Small(A) Negative LAB URINALYSIS - AUTOMATED METHOD 12/04/2024 11:40 AM EDT [facility] Urobilinogen, Urine 1.0 0.2 to 1.0 mg/dL LAB URINALYSIS - AUTOMATED METHOD 12/04/2024 11:40 AM EDT [facility] Leukocytes, Urine Trace(A) Negative LAB URINALYSIS - AUTOMATED METHOD 12/04/2024 11:40 AM EDT [facility] Nitrite, Urine Negative Negative LAB URINALYSIS - AUTOMATED METHOD 12/04/2024 11:40 AM EDT [facility] RBC, Urine <1 0 to 3 /HPF 12/04/2024 11:40 AM EDT [facility] Comment:This result was prev iously suppressed from the chart. WBC, Urine 0 - 5 0 to 5 /HPF 12/04/2024 11:40 AM EDT [facility] Comment:This result was prev iously suppressed from the chart. Squamous Epithelial Cells 0 - 2 0 to 5 /HPF 12/04/2024 11:40 AM EDT [facility] Comment:This result was prev iously suppressed from the chart. Hyaline Casts 0 - 2 0 to 5 /LPF 12/04/2024 11:40 AM EDT [facility] Comment:This result was prev iously suppressed from the chart. Bacteria, Urine Negative Negative 12/04/2024 11:40 AM EDT [facility] Comment:This result was prev iously suppressed from the chart. Urine Urine specimen obtained by clean catch procedure / Unknown Non-blood Collection / Unknown 12/04/2024 11:00 AM EDT 12/04/2024 11:17 AM EDT [facility] - 12/04/2024 11:40 AM EDT Performed by manual method us Jeff Cramer GARBAGE PICK UP WORKER LAB URINE ORDERABLES Final Re sult [facility] [address] [place] [address] * ECG Adult (12/04/2024 5:57 AM EDT) EKG DIAGNOSIS CLASS Abnormal MUSE ECG Ventricular Rate 110 BPM MUSE ECG QRSD Interval 100 ms MUSE ECG QT Interval 354 ms MUSE ECG QTC Interval 479 ms MUSE ECG R [place] 62 degrees MUSE ECG T Wave [place] -8 degrees MUSE ECG Diagnosis Atrial fibrillation with rapid ventricular response MUSE ECG Diagnosis Abnormal QRS-T angle, consider primary T wave abnormality MUSE ECG Diagnosis Abnormal ECG MUSE ECG Diagnosis MUSE ECG Diagnosis Confirmed by Lex Sorto ([id number]) on 12/04/2024 1:47:13 PM MUSE ECG 12/04/2024 5:57 AM EDT 12/04/2024 1:47 PM EDT us Jeff Cramer APRN ECG ORDERABLES Final Result [...] Comment 12/04/2024 5:38 AM EDT [facility] Disaster Recovery Specialist ID Aissatou Tuttle 12/04/2024 5:38 AM EDT [facility] Device ID [id number] 12/04/2024 5:38 AM EDT [facility] Specimen Type POC Capillary 12/04/2024 5:38 AM EDT [facility] Blood Capillary blood specimen / Unknown 12/04/2024 5:35 AM EDT 12/04/2024 5:38 AM EDT us Kiko Ball MD LAB POINT OF CARE TE ST DOCKED DEVICE UNSOLICITED RESULTS Final Result Performing Organization Address City/[facility]/ZIP Co de Phone Number [facility] [address] [place] [address] * XR Chest 1 View (12/04/2024 5:19 [...] Sourav Mcclendon MD on 12/04/2024 10:08 AM us Jeff Cramer GARBAGE PICK UP WORKER IMG XR PROCEDURES Final Resul t * ED HIV 1/2 Antibody/Antigen Screen w/Reflex to HIV 1/2 Differentiation (12/03/2024 11:18 PM EDT) Pathologist [facility] HIV 1 & 2 Antibody/Antigen Screen Non Reactive Non Reactive 12/04/2024 12:09 AM EDT [facility] Comment:Screening for HIV 1 & 2 antibodies, and P24 antigen is NONREACTIVE. No confirmatory testing is required. Blood Venous blood specimen / Unknown Venipuncture / Unknown 12/03/2024 11:18 PM EDT 12/03/2024 11:21 PM EDT us Margarito CAMARILLO LAB BLOOD ORDERABLES Final Res ult [facility] [address] [place] [address] * Hepatitis C Antibody - ED (12/03/2024 11:18 PM EDT) Pathologist [facility] Hepatitis C Antibody Negative Negative 12/03/2024 11:54 PM EDT [facility] Blood Venous blood specimen / Unknown Venipuncture / Unknown 12/03/2024 11:18 PM EDT 12/03/2024 11:21 PM EDT us Margarito Coloraod PA LAB BLOOD ORDERABLES Final Res ult Performing Organization Address [facility] Co de Phone Number [facility] [address] [place] [address] * Triglycerides (12/03/2024 11:18 PM EDT) Triglycerides, Plasma 63 <150 mg/dL 12/04/2024 5:00 AM EDT [facility] Comment: Triglyceride Reference Range (age >17 years): Desirable: <150 mg/dL Borderline high: 150 to 199 mg/dL High: 200 to 499 mg/dL Very high: >499 mg/dL Increased risk of pancreatitis: >1000 mg/dL Fasting greater than or equal to 12 hours? Unknown 12/04/2024 5:00 AM EDT [facility] Blood Venous blood specimen / Unknown Venipuncture / Unknown 12/03/2024 11:18 PM EDT 12/03/2024 11:21 PM EDT us Jeff Cramer APRN LAB BLOOD ORDERABLES Final Re sult Performing Organization Address [facility] Co de Phone Number [facility] [address] [place] [address] * CT OUTSIDE IMAGES (12/03/2024 6:40 PM [...] updated to appropriate status: Yes Care Teams Political Research Scientist Relationship Specialty Start Date End Date Raimundo Chirinos MD [address] [place] [address] PCP - General 11/18/21 Moiz Mcnally MD [address] [place] [address] Surgeon Neurosurgery 11/18/21 Bridgett Gonzales APRN [address] [place] [address] Nurse Practitioner Neurosurgery 01/07/22
--- OUTSIDE RECORDS SUMMARY | 2025-02-20 07:31 | XMS_ITS | Encounter Summary ---
Author Organization [facility] Address [address] [place] [address] Care Team Providers Care Varnish Melter Helper Name Role Phone Raimundo Chirinos MD Primary Care Provider [phone] Moiz Mcnally MD Unavailable [phone] Bridgett Gonzales HOLISTIC NUTRITIONIST Unavailable [phone] Purvi Foy RN Unavailable Unavailab Ynes Lozano EXECUTIVE SALES ASSISTANT Unavailable Unavailab Terrance Hdez Unavailable Unavailable Reason for Visit * Reason Comments Link Encounter Details Date Type Department Care Team (Late st Contact Info) Description 12/26/2024 Patient Outreach POP[facility] [address], [address] [place] [address] Purvi Foy, RN CH-VASCULAR & [...] any time in the past 12 m [facility], were you homeless or living in a skilled nursing (including now)? No 12/27/2024 CAGE ASSESSMENT Answer [...] drink first t zeb in the morning (EYE-HAT COPYIST) to steady your nerves or to get [...] documented as of this encounter Care Teams Varnish Melter Helper Relationship Specialty Start Date End Date Raimundo Chirinos MD [facility] [place] [address] PCP - General 11/18/21 Moiz Mcnally MD [address] [id number] Surgeon Neurosurgery 11/18/21 Bridgett Gonzales APRN [address] [facility] [address] [place] [address] Nurse Practitioner Neurosurgery 01/07/22 Purvi Foy RN CH-VASCULAR & INTERVENTIONAL RADIOLOGY Registered Nurse 12/26/24 12/26/24 Ynes Rocha LPN [facility] TCM Nurse 12/27/24 8/ Terrance Corral Community Health Worker 12/27/2401/16 documented as of this encounter
--- OUTSIDE RECORDS SUMMARY | 2025-02-20 07:31 | XMS_ITS | Encounter Summary ---
Author Organization Healthcare Address [address] [place] [address] Care Team Providers Care Integrated Circuit Ic Layout Designer Name Role Phone Raimundo Chirinos MD Primary Care Provider [phone] Moiz Mcnally MD Unavailable [phone] Bridgett Gonzales TOOL AND DIE MAKER APPRENTICE Unavailable [phone] Purvi Foy RN Unavailable Unavailab Ynes Lozano ELECTROMECHANIC Unavailable Unavailab Terrance Hdez Unavailable Unavailable Reason for Referral * Consultation (Urgent) - Authorized Specialty Diagnoses / Procedures Referred By Contact Referred To Contact Surgical Oncology / Hematology and Oncology Diagnoses Mass of head of pancreas Adenocarcinoma of head of pancreas (CMS/HCC) Darian Jaramillo MD [address] [facility] [address] [place] [address] Phone: tel: fax:[phone] [facility] Multidisciplinary Oncology Clinic [address] [place] [address] Phone: tel: fax: Referral ID Status Reason Start Date Expiration Date Visits Requested Visits Authorized [id number] Authorized Specialty Services Required 12/24/2024 06/25/2026 1 1 Encounter Details Date Type Department Care Team (Late st Contact Info) Description 12/24/2024 Orders Only [facility] Medicine Specialties [address] [place] [address] Darian Jaramillo MD [address] [place] [address] Adenocarcinoma of head of pancreas (CMS/HCC) (Primary [...] drink first t zeb in the morning (EYE-ENGINEERED WOOD DESIGNER) to steady your nerves or to get rid of a hangover? 0 12/05/2024 CAGE Questionnaire Score 0 025 Utilities Answer Date Recorded In the past 12 months has th e [employer], gas, oil, or water company threatened to [...] as of this encounter Plan of Treatment Scheduled Referrals [...] documented as of this encounter Care Teams Integrated Circuit Ic Layout Designer Relationship Specialty Start Date End Date Raimundo Chirinos MD [address] [facility] [address] [place] [address] PCP - General 11/18/21 Moiz Mcnally MD [address] [place] [address] Surgeon Neurosurgery 11/18/21 Bridgett Gonzales APRN [address] [place] [address] Nurse Practitioner Neurosurgery 01/07/22 Purvi Foy, RN CH-VASCULAR & INTERVENTIONAL RADIOLOGY Registered Nurse 12/26/24 12/26/24 Ynes Rocha LPN [facility] TCM Nurse 12/27/2401/25 Terrance Corral Community Health Worker 12/27/2401/16 documented as of this encounter
--- OUTSIDE RECORDS SUMMARY | 2025-02-20 07:31 | XMS_ITS | Encounter Summary ---
Author Organization [facility] Address [address] [id number] Care Team Providers Care Products Mechanical Design Engineer Name Role Phone Raimundo Chirinos MD Primary Care Provider [phone] Moiz Mcnally MD Unavailable [phone] Bridgett Gonzales WRAPPER SELECTOR Unavailable [phone] Encounter Details Date Type Department Care Team (Late st Contact Info) Description 02/05/2025 Telephone [facility] [address] [place] [address] Roldan Cornelius MD [address] [facility] [address] [place] [address] Social History Tobacco Use Types [...] any time in the past 12 m [facility], were you homeless [...] drink first t zeb in the morning (EYE-ADVANCED PRACTICE RN) to steady your nerves or to [...] encounter Miscellaneous Notes * Telephone Encounter - Rossy Turcios - 02/06/2025 8:55 AM EDT 02/06/25- Faxed on 02/05/25 * Telephone Encounter - Jolynn Benjamin - 02/05/2025 1:30 PM EDT Patient Phone Message Reason for Call: [facility] calling to say patient wants to receive palliative care ([facility]) is where they would like to refer him. Best contact number and optimal time of day to reach caller: [phone] Note: Please do not reply to this message. Follow-up communication and further actions as a result of this message need to be communicated with the patient directly, if the patient is not active onMyChart. If the patient is active on MyChart, they will receive notification of the communication/outcome via Stamplay. documented in this encounter Plan of Treatment [...] documented as of this encounter Care Teams Products Mechanical Design Engineer Relationship Specialty Start Date End Date Raimundo Chirinos MD [address] [place] [address] [address] [place] [address] PCP - General 11/18/21 Moiz Mcnally MD [address] [place] [address] Surgeon Neurosurgery 11/18/21 Bridgett Gonzales APRN [address] [place] [address] Nurse Practitioner Neurosurgery 01/07/22 documented as of this encounter
--- OUTSIDE RECORDS SUMMARY | 2025-02-20 07:31 | XMS_ITS | Encounter Summary ---
Author Organization Healthcare Address [address] [id number] Care Team Providers Care Male Model Name Role Phone Raimundo Chirinos MD Primary Care Provider [phone] Moiz Mcnally MD Unavailable [phone] Bridgett Gonzales CLINICAL PSYCHIATRIST Unavailable [phone] Ynes Rocha AMMONIA SOLUTION PREPARER Unavailable Unavailab le Encounter Details Date Type Department Care Team (Late st Contact Info) Description 01/31/2025 Telephone [facility] [address] [place] [address] Roldan Cornelius MD [address] [address] Social History Tobacco Use Types Packs/Day [...] any time in the past 12 m [facility], were you homeless or living in [...] first t zeb in the morning (EYE-CLINICAL APPEALS REVIEWER) to steady your nerves or to get [...] encounter Miscellaneous Notes * Telephone Encounter - Brittany Ashley - 02/04/2025 10:37 AM EDT Called and spoke with Elizabeth, she was calling about pt having a delayed visit (was supposed to see him Tuesday but he was seen Tuesday instead). Let her know this was okay, she had no further questions or concerns. * Telephone Encounter - Adri Tillman - 01/31/2025 4:32 PM EDT Patient Phone Message Reason for Call: Elizabeth is returning call to Brittany, please call back tomorrow Best contact number and optimal time of day to reach caller: [phone] Note: Please do not reply to this message. Follow-up communication and further actions as a result of this message need to be communicated with the patient directly, if the patient is not active onMyChart. If the patient is active on MyChart, they will receive notification of the communication/outcome via GenKyoText. * Telephone Encounter - Brittany Ashley - 01/31/2025 3:12 PM EDT Attempted to call Elizabeth with no answer, LVM. * Telephone Encounter - Mika Dong - 01/31/2025 2:40 PM EDT Patient Phone Message Reason for Call: [facility] is calling for Dr. Cornelius they are needing a delay serta care order on Mr. Brock for home health services Best contact number and optimal time of day to reach caller: [facility] home health Elizabeth phone # is [phone] Note: Please do not reply to this message. Follow-up communication and further actions as a result of this message need to be communicated with the patient directly, if the patient is not active onMyChart. If the patient is active on MyChart, they will receive notification of the communication/outcome via MyChart. documented in this encounter Plan of Treatment [...] documented as of this encounter Care Teams Male Model Relationship Specialty Start Date End Date Raimundo Chirinos MD [facility] [place] [address] PCP - General 11/18/21 Moiz Mcnally MD [address] [place] [phone] Surgeon Neurosurgery 11/18/21 Bridgett Gonzales APRN [address] [place] [address] Nurse Practitioner Neurosurgery 01/07/22 Ynes Rocha LPN [facility] TCM Nurse 12/27/24 8/ documented as of this encounter
--- OUTSIDE RECORDS SUMMARY | 2025-02-20 07:31 | XMS_ITS | Encounter Summary ---
Author Organization Healthcare Address [address] [place] [address] Care Team Providers Care Electric Scoop Operator Name Role Phone Raimundo Chirinos MD Primary Care Provider [phone] Moiz Mcnally MD Unavailable [phone] Bridgett Gonzales APRN Unavailable [phone] Purvi Foy RN Unavailable Unavailab le Encounter [...] any time in the past 12 m [facility], were you homeless or living [...] drink first t zeb in the morning (EYE-CHIPPER FEEDER) to steady your nerves or to get rid of a hangover? 0 12/05/2024 CAGE Questionnaire Score 0 025 Utilities Answer Date Recorded In the past 12 months has e [employer], gas, oil, or water [employer] threatened to shut off services in your [...] documented as of this encounter Care Teams Electric Scoop Operator Relationship Specialty Start Date End Date Raimundo Chirinos MD [address] [facility] [address] [place] [address] PCP - General 11/18/21 Moiz Mcnally MD [address] [place] [address] Surgeon Neurosurgery 11/18/21 Bridgett Gonzales APRN [address] [place] [address] Nurse Practitioner Neurosurgery 01/07/22 Purvi Foy, RN CH-VASCULAR & INTERVENTIONAL RADIOLOGY Registered Nurse 12/26/24 12/26/24 documented as of this encounter
--- OUTSIDE RECORDS SUMMARY | 2025-02-20 07:31 | XMS_ITS | Encounter Summary ---
Author Organization Healthcare Address [address] [place] [address] Care Team Providers Care Special Education Math Teacher Name Role Phone Raimundo Chirinos MD Primary Care Provider [phone] Moiz Mcnally MD Unavailable [phone] Bridgett Gonzales LIVESTOCK BROKER Unavailable [phone] Ynes Rocha LPN Unavailable Unavailab Terrance Hdez Unavailable Unavailable Reason for Visit * Reason Comments TCM Call Encounter Details Date Type Department Care Team (Late st Contact Info) Description 12/27/2024 Patient Outreach POPULATION HEALTH [address] [facility], [address] [place] [address] Ynes Rocha LPN [facility] TCM Call Social History [...] drink first t zeb in the morning (EYE-PRESSURE DISPATCHER) to steady your nerves or to get rid of a hangover? 0 12/05/2024 CAGE Questionnaire Score 0 025 Utilities Answer Date Recorded In the past 12 months has th e [employer], gas, oil, or water company threatened to [...] Date: 12/25/2024 Discharge Date: 12/26/2024 Hospital Service: [facility] Discharge Diagnosis: Malignant neoplasm of pancreas, unspecified [...] and patient states that he did not vegetable picker his medications yet, and that he was notified the pharmacy had only received his zofran medication. SDOH needs were updated with patient and patient would like to discuss needs for foodand utilities. Patient did not voice any other questions or concerns during TCM call. Action: [facility] referral placed for sdoh needs. [facility] pharmacy in [place] contacted to see if medications were ready for patient to vegetable picker. Spoke with Alessia and she states medications are ready for patient to vegetable picker. 12:02pm Patient called and notified discharge medications are ready for vegetable picker. Medication changes: Per AVS Start: aspirin [...] documented as of this encounter Care Teams Special Education Math Teacher Relationship Specialty Start Date End Date Raimundo Chirinos MD [facility] [address] [place] [address] PCP - General 11/18/21 Moiz Mcnally MD [address] [place] [address] Surgeon Neurosurgery 11/18/21 Bridgett Gonzales APRN [address] [place] [address] Nurse Practitioner Neurosurgery 01/07/22 Ynes Rocha LPN [facility] TCM Nurse 12/27/2401/25 Terrance Corral Community Health Worker 12/27/2401/16 documented as of this encounter
--- OUTSIDE RECORDS SUMMARY | 2025-02-20 07:31 | XMS_ITS | Encounter Summary ---
Author Organization [facility] Address [address] [place] [address] Care Team Providers Care Self Storage Manager Name Role Phone Raimudno Chirinos MD Primary Care Provider [phone] Moiz Mcnally MD Unavailable [phone] Bridgett Gonzales UTILIZATION MANAGER Unavailable [phone] Reason for Referral * Hospice (Routine) - Authorized Specialty Diagnoses / Procedures Referred By Contjerad t Referred To Contact Hospice Services Diagnoses Pancreatic adenocarcinoma (CMS/HCC) Roldan Cornelius MD [address] [address] Phone: tel: fax: Referral ID Status Reason Start Date Expiration Date Visits Requested Visits Authorized [id number] Authorized Specialty Services Required 02/12/2025 08/14/[phone] Encounter Details Date Type Department Care Team (Latest Contact Info) Description 02/12/2025 Orders Only [facility] [address] [place] [address] Danna Henderson RN Pancreatic adenocarcinoma (CMS/HCC) (Primary Dx) Social [...] drink first t zeb in the morning (EYE-SERVICE SUPERVISOR) to steady your nerves or to [...] Diagnoses Orde r Schedule Ambulatory referral to Hospice Outpatient Referral Routine Pancreatic adenocarcinoma (CMS/HCC) 1 Occurrences starting 02/12/2025 until 08/16/2026 documented as of this encounter Goals Goal [...] documented as of this encounter Care Teams Self Storage Manager Relationship Specialty Start Date End Date Raimundo Chirinos MD [address] [facility] [address] [place] [address] PCP - General 11/18/21 Moiz Mcnally MD [address] [place] [address] Surgeon Neurosurgery 11/18/21 Bridgett Gonzales APRN [address] [place] [address] Nurse Practitioner Neurosurgery 01/07/22 documented as of this encounter
--- OUTSIDE RECORDS SUMMARY | 2025-02-20 07:32 | XMS_ITS | Encounter Summary ---
Author Organization Healthcare Address [address] [place] [address] Care Team Providers Care Masonry Contractor Name Role Phone Raimundo Chirinos MD Primary Care Provider [phone] Moiz Mcnally MD Unavailable [phone] Bridgett Gonzales HOTEL CASINO FLOORPERSON Unavailable [phone] Ynes Rocha EXPERIMENTAL ASSEMBLER Unavailable Unavailab Terrance Hdez Unavailable Unavailable Reason for Visit * Reason Comments Community Resources Encounter Details Date Type Department Care Team (Late st Contact Info) Description 12/31/2024 Patient Outreach POPULATION HEALTH [address] [facility] [address], [address] [place] [address] Terrance Corral Community Resources Social [...] living in a fdc (including now)? No 01/04/2025 CAGE ASSESSMENT Answer [...] drink first t zeb in the morning (EYE-INTERNATIONAL SPECIALIST) to steady your nerves or to get rid of a hangover? 0 12/05/2024 CAGE Questionnaire Score 0 025 Utilities Answer Date Recorded In the past 12 months has th e [employer], gas, oil, or water company threatened to [...] 12/31/2024 Urgent or Non-Urgent Referral: Non Urgent Lead Teacher: No Preferred Language: Latvian Lead Teacher ID: Outreach 1: 12/27/24 - left vm [...] for a local pantry and community action [place]; pt declined at this time. Pt stated [...] documented as of this encounter Care Teams Masonry Contractor Relationship Specialty Start Date End Date Raimundo Chirinos MD [address] [place], [place] [address] [address] [place] [address] PCP - General 11/18/21 Moiz Mcnally MD [address] [place] [address] Surgeon Neurosurgery 11/18/21 Bridgett Gonzales APRN [address] [place] [address] Nurse Practitioner Neurosurgery 01/07/22 Ynes Rocha LPN [facility] TCM Nurse 12/27/24 8/ Terrance Corarl Community Health Worker 12/27/2401/16 documented as of this encounter
--- OUTSIDE RECORDS SUMMARY | 2025-02-20 07:32 | XMS_ITS | Encounter Summary ---
Author Organization Healthcare Address [address] [place] [address] Care Team Providers Care Pole Setter Name Role Phone Raimundo Chirinos MD Primary Care Provider [phone] Moiz Mcnally MD Unavailable [phone] Bridgett Gonzales INTERNET RESEARCHER Unavailable [phone] Ynes Rocha SITE INSPECTOR Unavailable Unavailab Terrance Hdez Unavailable Unavailable Reason for Visit * Reason Comments Follow-up Encounter Details Date Type Department Care Team (Late st Contact Info) Description 01/11/2025 Patient Outreach POPULATION HEALTH [address] [facility] [address], [address] [place] [address] Terrance Corral Follow-up Social History [...] living in a penitentiary (including now)? No 01/04/2025 CAGE ASSESSMENT Answer [...] drink first t zeb in the morning (EYE-MONEY COUNTER) to steady your nerves or to get rid of a hangover? 0 12/05/2024 CAGE Questionnaire Score 0 025 Utilities Answer Date Recorded In the past 12 months has th e [employer], gas, oil, or water company threatened to shut off services in your home? No 01/04/2025 Sex and Gender Information Value Date Recorded Sex Assigned at Male 01/29/2025 3:48 PM EDT Legal Sex Male 6:38 PM EDT Gender Identity Not on file Sexual Orientation Not on file documented as of this encounter Miscellaneous Notes * Progress Notes - O'Rigoberto, Terrance T - 01/11/2025 11:12 AM EDT CHW attempted [...] documented as of this encounter Care Teams Pole Setter Relationship Specialty Start Date End Date Raimundo Chirinos MD [facility] [address] [place] [address] PCP - General 11/18/21 Moiz Mcnally MD [address] [facility] [address] [place] [address] Surgeon Neurosurgery 11/18/21 Bridgett Gonzales APRN [address] [place] [address] Nurse Practitioner Neurosurgery 01/07/[address] [facility] TCM Nurse 12/27/24 8 Terrance Corral Community Health Worker 12/27/2401/16 documented as of this encounter
--- OUTSIDE RECORDS SUMMARY | 2025-02-20 07:32 | XMS_ITS ---
Author Organization [facility] Address [address] [place] [address] Care Team Providers Care Youth Care Professional Name Role Phone Raimundo Chirinos MD Primary Care Provider [phone] Moiz Mcnally MD Unavailable [phone] Bridgett Gonzales APRN Unavailable [phone] Community Health Work Status:Closed (Closed) Start date:12/27/2024 Enrollment date:12/31/2024 End date:01/16/2025 Close reason:Patient Declined Overview This episode type is for outpatient Community Health Workers enrolling patients in their program. Continued Care and Services Coordination
--- OUTSIDE RECORDS SUMMARY | 2025-02-20 07:32 | XMS_ITS | Encounter Summary ---
Author Organization Healthcare Address [address] [place] [address] Care Team Providers Care Spiral Winding Machine Helper Name Role Phone Raimundo Chirinos MD Primary Care Provider [phone] Moiz Mcnally MD Unavailable [phone] Bridgett Gonzales TEACHER VOCATIONAL TRAINING Unavailable [phone] Ynes Rocha LPN Unavailable Unavailab Terrance Hdez Unavailable Unavailable Reason for Visit * Reason Comments TCM Call Encounter Details Date Type Department Care Team (Late st Contact Info) Description 01/04/2025 Patient Outreach POPULATION HEALTH [address] [facility], [address] [place] [address] Ynes Rocha LPN [facility] TCM Call Social [...] time in the past 12 m [facility], were you homeless or living in a correction (including now)? No 01/04/2025 CAGE ASSESSMENT Answer [...] drink first t zeb in the morning (EYE-PRODUCTION SUPERVISOR TRAINEE) to steady your nerves or to get rid of a hangover? 0 12/05/2024 CAGE Questionnaire Score 0 025 Utilities Answer Date Recorded In the past 12 months has th e [employer], gas, oil, or water company threatened to [...] Discharge Date: 01/03/2025 Hospital Service: [facility] Discharge Diagnosis: Biliary obstruction 01/04/2025 [...] documented as of this encounter Care Teams Spiral Winding Machine Helper Relationship Specialty Start Date End Date Raimundo Chirinos MD [address] [place] [address] PCP - General 11/18/21 Moiz Mcnally MD [address] [address] Surgeon Neurosurgery 11/18/21 Bridgett Gonzales APRN [address] [address] Nurse Practitioner Neurosurgery 01/07/22 Ynes Rocha LPN [facility] TCM Nurse 12/27/2401/25 Terrance Corral Community Health Worker 12/27/2401/16 documented as of this encounter
--- OUTSIDE RECORDS SUMMARY | 2025-02-20 07:32 | XMS_ITS ---
Author Organization [facility] Address [address] [place] [address] Care Team Providers Care Loan Officer Assistant Name Role Phone Raimundo Chirinos MD Primary Care Provider [phone] Moiz Mcnally MD Unavailable [phone] Bridgett Gonzales ASSESSMENT EXPERT Unavailable [phone] Active Problems * This document contains information [...] (11/20/2021): Added automatically from request for surgery [id number] Current Treatment and Therapy Plans No current plan information found. Past Treatment and Therapy Plans No past plan information found. Lifetime Dose Tracking * Chemical Lifetime Dose Automatic Entry Manual Entr y Fluoro Time 4.402 minutes 4.402 minutes 0 minutes Air Kerma 90.687 mGy 90.687 mGy 0 mGy
--- OUTSIDE RECORDS SUMMARY | 2025-02-20 07:32 | XMS_ITS | Encounter Summary ---
Author Organization Healthcare Address [address] [place] [address] Care Team Providers Care Rn Emergency Name Role Phone Raimundo Chirinos MD Primary Care Provider [phone] Moiz Mcnally MD Unavailable [phone] Bridgett Gonzales ORDER CHECKER PACKER PROCESSER Unavailable [phone] Ynes Rocha BEAUTY SHOP MANAGER Unavailable Unavailab Terrance Hdez Unavailable Unavailable Reason for Visit * Reason Comments Follow-up Encounter Details Date Type Department Care Team (Late st Contact Info) Description 01/09/2025 Patient Outreach POPULATION HEALTH [address] [facility] [address], [address] [place] [address] Terrance Corral Follow-up Social History [...] drink first t zeb in the morning (EYE-MEDICAL APPARATUS MODEL MAKER) to steady your nerves or to get rid of a hangover? 0 12/05/2024 CAGE Questionnaire Score 0 025 Utilities Answer Date Recorded In the past 12 months has th e [employer], gas, oil, or water company threatened to shut off services in your home? No 01/04/2025 Sex and Gender Information Value Date Recorded Sex Assigned at Male 01/29/2025 3:48 PM EDT Legal Sex Male 6:38 PM EDT Gender Identity Not on file Sexual Orientation Not on file documented as of this encounter Miscellaneous Notes * Progress Notes - O'Rigoberto, Terrance T - 01/09/2025 10:57 AM EDT CHW attempted [...] as of this encounter Care Teams Rn Emergency Relationship Specialty Start Date End Date Raimundo Chirinos MD [address] [facility] [address] [place] [address] PCP - General 11/18/21 Moiz Mcnally MD [address] [place] [address] Surgeon Neurosurgery 11/18/21 Bridgett Gonzales APRN [address] [place] [address] Nurse Practitioner Neurosurgery 01/07/22 Ynes Rocha LPN [facility] TCM Nurse 12/27/24 8/1 Terrance Corral Community Health Worker 12/27/2401/16 documented as of this encounter
--- OUTSIDE RECORDS SUMMARY | 2025-02-20 07:32 | XMS_ITS ---
Author Organization [facility] Address [address] [place] [address] Care Team Providers Care Junior High School Teacher Name Role Phone Raimundo Chirinos MD Primary Care Provider [phone] Moiz Mcnally MD Unavailable [phone] Bridgett Gonzales APRN Unavailable [phone] Transitional Care Management Status:Closed (Closed) Start date:12/27/2024 Enrollment date:12/27/2024 Enrollment reason:Identified using hospital discharge data End date:01/04/2025 Close reason:Patient Readmitted Overview This episode type is for outpatient care managers enrolling patients in the [facility] Transitional Care Management program. Continued Care and Services Coordination
--- OUTSIDE RECORDS SUMMARY | 2025-02-20 07:32 | XMS_ITS | Encounter Summary ---
Author Organization [facility] Address [address] [place] [address] Care Team Providers Care Car Lubricator Name Role Phone Raimundo Chirinos MD Primary Care Provider [phone] Moiz Mcnally MD Unavailable [phone] Bridgett Gonzales MASON HELPER Unavailable [phone] Ynes Rocha LPN Unavailable Unavailab Terrance Hdez [...] drink first t zeb in the morning (EYE-WORLD HISTORY TEACHER) to steady your nerves or to get rid of a hangover? 0 12/05/2024 CAGE Questionnaire Score 0 025 Utilities Answer Date Recorded In the past 12 months has th e [employer], gas, oil, or water [employer] threatened to shut off services in [...] Risk Indicated 01/01/2025 5:50 PM EDT Morenita Wright RN * Question Answer Date of Assessment [...] documented as of this encounter Care Teams Car Lubricator Relationship Specialty Start Date End Date Raimundo Chirinos MD [address] [place] [address] [address] [place] [address] PCP - General 11/18/21 Moiz Mcnally MD [address] [facility] [address] [place] [address] Surgeon Neurosurgery 11/18/21 Bridgett Gonzales APRN [address] [place] [address] Nurse Practitioner Neurosurgery 01/07/22 Ynes Rocha LPN [facility] TCM Nurse 12/27/24 8/ Terrance Corral Community Health Worker 12/27/2401/16 documented as of this encounter
--- OUTSIDE RECORDS SUMMARY | 2025-02-20 07:32 | XMS_ITS | Encounter Summary ---
Author Organization Healthcare Address [address] [place] [address] Care Team Providers Care Welding Lead Burner Name Role Phone Raimundo Chirinos MD Primary Care Provider [phone] Moiz Mcnally MD Unavailable [phone] Bridgett Gonzales SLIP BOX CHANGER Unavailable [phone] Purvi Foy RN Unavailable Unavailab Ynes Lozano CHALK TESTER Unavailable Unavailab Terrance Hdez Unavailable Unavailable Reason for Visit * Reason Comments Med Refill Encounter Details Date Type Department Care Team (Late st Contact Info) Description 06/17/2022 [place]ill [place] [facility] [address] [place] [address] Rocio Enamorado, SLIP BOX CHANGER [address] [place] [address] Social History Tobacco Use Types [...] documented as of this encounter Care Teams Welding Lead Burner Relationship Specialty Start Date End Date Raimundo Chirinos MD [address] [facility] [address] [place] [address] PCP - General 11/18/21 Moiz Mcnally MD [address] [facility] [place] [address] Surgeon Neurosurgery 11/18/21 Bridgett Gonzales APRN [address] [place] [address] Nurse Practitioner Neurosurgery 01/07/22 Purvi Foy, RN CH-VASCULAR & INTERVENTIONAL RADIOLOGY Registered Nurse 12/26/24 12/26/[address] [facility] TCM Nurse 12/27/24 8/ Terrance Corral Community Health Worker 12/27/2401/16 documented as of this encounter
--- OUTSIDE RECORDS SUMMARY | 2025-02-20 07:32 | XMS_ITS ---
Author Organization [facility] Address [address] [place] [address] Care Team Providers Care Fur Nailer Name Role Phone Raimundo Chirinos MD Primary Care Provider [phone] Moiz Mcnally MD Unavailable [phone] Bridgett Gonzales APRN Unavailable [phone] LINK Program Status:Closed (Closed) Start date:12/26/2024 Enrollment date:12/26/2024 End date:12/26/2024 Close reason:Not Eligible Overview Patient identified for LINK program. Program was closed at the time of review. Following chart review, patient determined to be ineligible based on program criteria. Continued Care and Services Coordination
--- OUTSIDE RECORDS SUMMARY | 2025-02-20 07:32 | XMS_ITS | Encounter Summary ---
Author Organization [facility] Address [id number] Care Team Providers Care Glass Beveler Name Role Phone Raimundo Chirinos MD Primary Care Provider [phone] Moiz Mcnally MD Unavailable [phone] Bridgett Gonzales INSOLE BUFFER Unavailable [phone] Ynes Rocha EVP GLOBAL MULTIMEDIA SALES Unavailable Unavailab Terrance Hdez Unavailable Unavailable Reason for Visit * Reason Onset Date Comments [facility] Care 01/07/2025 Encounter Details Date Type Department Care Team (Late st Contact Info) Description 01/07/2025 Telephone [facility] [address] [place] [address] Nito Balderas MD [address] [place] [address] [facility] Social History Tobacco Use Types [...] drink first t zeb in the morning (EYE-CONTENT STRATEGY LEAD) to steady your nerves or to get rid of a hangover? 0 12/05/2024 CAGE Questionnaire Score 0 025 Utilities Answer Date Recorded In the past 12 months has th e [employer], gas, oil, or water company threatened [...] at this time. * Telephone Encounter - Jacquie Guerra - 01/07/2025 2:56 PM EDT Attempt 1: [...] documented as of this encounter Care Teams Glass Beveler Relationship Specialty Start Date End Date Raimundo Chirinos MD [address] [place] [address] PCP - General 11/18/21 Moiz Mcnally MD [address] [facility] [address] [place] [address] Surgeon Neurosurgery 11/18/21 Bridgett Gonzales APRN [address] [address] Nurse Practitioner Neurosurgery 01/07/22 Ynes Rocha LPN [facility] TCM Nurse 12/27/2401/25 Terrance Corral Community Health Worker 12/27/2401/16 documented as of this encounter
--- OUTSIDE RECORDS SUMMARY | 2025-02-20 07:32 | XMS_ITS | Encounter Summary ---
Author Organization [facility] Address [address] [place] [address] Care Team Providers Care Cable Armorer Name Role Phone Raimundo Chirinos MD Primary Care Provider [phone] Moiz Mcnally MD Unavailable [phone] Bridgett Gonzales VENEER STOCK GRADER Unavailable [phone] Ynes Rocha LPN Unavailable Unavailab Terrance Hdez [...] first t zeb in the morning (EYE-MARINE MACHINIST) to steady your nerves or to get rid of a hangover? 0 12/05/2024 CAGE Questionnaire Score 0 025 Utilities Answer Date Recorded In the past 12 months has th e [employer], gas, oil, or water company threatened to [...] documented as of this encounter Care Teams Cable Armorer Relationship Specialty Start Date End Date Raimundo Chirinos MD [address] [facility] [address] [place] [address] PCP - General 11/18/21 Moiz Mcnally MD [address] [place] [address] Surgeon Neurosurgery 11/18/21 Bridgett Gonzales APRN [address] [place] [address] Nurse Practitioner Neurosurgery 01/07/22 Ynes Rocha LPN [facility] TCM Nurse 12/27/24 8/ Terrance Corral Community Health Worker 12/27/2401/16 documented as of this encounter
--- OUTSIDE RECORDS SUMMARY | 2025-02-20 07:32 | XMS_ITS ---
Author Organization [facility] Address [address] [place] [address] Care Team Providers Care Helicopter Specialist Name Role Phone Raimundo Chirinos MD Primary Care Provider [phone] Moiz Mcnally MD Unavailable [phone] Bridgett Gonzales APRN Unavailable [phone] Transitional Care Management Status:Closed (Closed) Start date:01/04/2025 Enrollment date:01/04/2025 Enrollment reason:Identified using hospital discharge data End date:02/03/2025 Close reason:Patient graduated Overview This episode type is for outpatient care managers enrolling patients in the [facility] Transitional Care Management program. Continued Care and Services Coordination
--- OUTSIDE RECORDS SUMMARY | 2025-02-20 07:32 | XMS_ITS | Encounter Summary ---
Author Organization Healthcare Address [address] [place] [address] Care Team Providers Care Software Licensing Executive Name Role Phone Raimundo Chirinos MD Primary Care Provider [phone] Moiz Mcnally MD Unavailable [phone] Bridgett Gonzales CHIMNEY BUILDER BRICK Unavailable [phone] Ynes Rocha MOTION PICTURE NARRATOR Unavailable Unavailab Terrance Hdez Unavailable Unavailable Reason for Visit * Reason Comments Follow-up Encounter Details Date Type Department Care Team (Late st Contact Info) Description 01/04/2025 Patient Outreach POPULATION HEALTH [address] [facility] [address] [place] [address] Terrance Corral Follow-up Social History [...] drink first t zeb in the morning (EYE-SLITTER SERVICE AND SETTER) to steady your nerves or to get rid of a hangover? 0 12/05/2024 CAGE Questionnaire Score 0 025 Utilities Answer Date Recorded In the past 12 months has th e [employer], gas, oil, or water company threatened to shut off services in your home? No 01/04/2025 Sex and Gender Information Value Date Recorded Sex Assigned at Male 01/29/2025 3:48 PM EDT Legal Sex Male 6:38 PM EDT Gender Identity Not on file Sexual Orientation Not on file documented as of this encounter Miscellaneous Notes * Progress Notes - O'Rigoberto, Terrance T - 01/04/2025 3:02 PM EDT CHW outreached [...] documented as of this encounter Care Teams Software Licensing Executive Relationship Specialty Start Date End Date Raimundo Chirinos MD [facility] [place] [address] PCP - General 11/18/21 Moiz Mcnally MD [address] [place] [address] Surgeon Neurosurgery 11/18/21 Bridgett Gonzales APRN [address] [place] [address] Nurse Practitioner Neurosurgery 01/07/22 Ynes Rocha LPN [facility] TCM Nurse 12/27/2401/25 Terrance Corral Community Health Worker 12/27/2401/16 documented as of this encounter
--- OUTSIDE RECORDS SUMMARY | 2025-02-20 07:33 | XMS_ITS | Encounter Summary ---
Author Organization Healthcare Address [address] [address] Care Team Providers Care Glassware Maker Name Role Phone Raimundo Chirinos MD Primary Care Provider [phone] Moiz Mcnally MD Unavailable [phone] Bridgett Gonzales SMELTER CHARGER Unavailable [phone] Ynes Rocha YARD COORDINATOR Unavailable Unavailab le Encounter Details Date Type Department Care Team (Late st Contact Info) Description 2025 Telephone [facility] [address] [place] [address] iNto Balderas MD [address] [place] [address] Social History Tobacco Use Types Packs/Day Years [...] time in the past 12 m [facility], were you homeless or living in a jail (including now)? No 01/04/2025 CAGE ASSESSMENT Answer [...] drink first t zeb in the morning (EYE-LITERARY WRITER) to steady your nerves or to get [...] encounter Miscellaneous Notes * Telephone Encounter - Rosana Magallon - 2025 2:17 PM EDT Attempt 1: Care Guide (CG) called the patient (pt) at [phone] and successfully completed outreach. Pt will attend appointment on 01/24/25 @ 8:30am . No additional assistance needed at this time. documented in this encounter Plan of Treatment [...] documented as of this encounter Care Teams Glassware Maker Relationship Specialty Start Date End Date Raimundo Chirinos MD [facility] [address] [place], [place] [address] PCP - General 11/18/21 Moiz Mcnally MD [address] [place] [address] Surgeon Neurosurgery 11/18/21 Bridgett Gonzales APRN [address] [place] [address] Nurse Practitioner Neurosurgery 01/07/22 Ynes Rocha LPN [facility] TCM Nurse 12/27/2401/25 documented as of this encounter
--- OUTSIDE RECORDS SUMMARY | 2025-02-20 07:33 | XMS_ITS | Encounter Summary ---
Author Organization Healthcare Address [address] [place] [address] Care Team Providers Care Uniformer Name Role Phone Raimundo Chirinos MD Primary Care Provider [phone] Moiz Mcnally MD Unavailable [phone] Bridgett Gonzales SYSTEMS DEVELOPMENT CONSULTANT Unavailable [phone] Ynes Rocha LPN Unavailable Unavailab Terrance Hdez Unavailable Unavailable Encounter Details Date Type Department Care Team (Late st Contact Info) Description 01/16/2025 Orders Only External Location [address] [place] [id number] Provider, External Social History Tobacco Use Types Packs/Day Years [...] time in the past 12 m [facility], were you homeless or living in [...] drink first t zeb in the morning (EYE-SOLID WASTE DISPOSAL MANAGER) to steady your nerves or to get rid of a hangover? 0 12/05/2024 CAGE Questionnaire Score 0 025 Utilities Answer Date Recorded In the past 12 months has th e [employer], gas, oil, or water company threatened to shut off services in your home? No 01/04/2025 Sex and Gender Information Value Date Recorded Sex Assigned at Male 01/29/2025 3:48 PM EDT Legal Sex Male 6:38 PM EDT Gender Identity Not on file Sexual Orientation Not on file documented as of this encounter Functional Status * Over the [...] much Not at all 01/24/2025 8:15 AM Lana Maier Feeling tired or having ryan le energy Not at all 01/24/2025 8:15 AM EDLana Reich Poor appetite or overeating Not at all 01/24/2025 8: 15 AM Lana Maier Feeling bad about yourself - or that you are a failure or have let yourself or your family down Not at all 01/24/2025 8:15 AM EDT Maverick Peace Trouble concentrating on thi ngs, such as reading the newspaper or watching television Not at all 01/24/2025 8:15 AM Lana Maier Moving or speaking so slowly that other people could have noticed? Or the opposite - being so fidgety or restless that you have been moving around a lot more than usual. Not at all 01/24/2025 8:15 AM Celina Maier Thoughts that you would be b dickson off or hurting yourself in some way Not at all 01/24/2025 8:15 AM Lana Maier Patient Health Questionnaire-9 Score 0 12/27 8:15 AM Lana Maier * If you checked off any problems on this questionnaire so far, Question Answer Date of Assessment Author How difficult have these problems made it for you to do your work, take care of things at home, or get along with other people? Not difficult at all 01/24/2025 8:15 AM EDT Weyl, Lana C documented as of this encounter Plan of Treatment Not on file documented as of this encounter Goals Goal Patient Goal Type Associated Problems Recent Progress Patient-Stated? Author Autogenerat ed Goal Care Plan Autogenerated Problem No Sourav Garrido RN documented as of this encounter Procedures Procedure Name Priority Date/Time Associated Diagnosis Comments CT MSK OUTSIDE IMAGES 01/16/2025 5:43 PM EDT documented in this encounter Results * CT MSK OUTSIDE IMAGES (01/16/2025 5:43 PM EDT) Anatomical Region Laterality Modality Computed Tomogra phy 01/16/2025 5:43 PM EDT us External Provider IMG CT PROCEDURES Final Result documented in [...] documented as of this encounter Care Teams Uniformer Relationship Specialty Start Date End Date Raimundo Chirinos MD [facility] [address] [place] [address] PCP - General 11/18/21 Moiz Mcnally MD [address] [place] [id number] Surgeon Neurosurgery 11/18/21 Bridgett Gonzales APRN [address] [place] [address] Nurse Practitioner Neurosurgery 01/07/22 Ynes Rocha LPN [facility] TCM Nurse 12/27/24 8/ Terrance Corral Community Health Worker 12/27/2401/16 documented as of this encounter
--- OUTSIDE RECORDS SUMMARY | 2025-02-20 07:33 | XMS_ITS | Encounter Summary ---
Author Organization Healthcare Address [address] [id number] Care Team Providers Care Senior Technical Trainer Name Role Phone Raimundo Chirinos MD Primary Care Provider [phone] Moiz Mcnally MD Unavailable [phone] Bridgett Gonzales WELDING TEACHER Unavailable [phone] Ynes Rocha BUSINESS RELATIONSHIP MANAGER Unavailable Unavailab le Encounter Details Date Type Department Care Team (Late st Contact Info) Description 2025 Telephone [facility] [address] [place] [phone] Nito Balderas MD [address] [place] [address] Social History Tobacco Use Types Packs/Day Years [...] time in the past 12 m [facility], were you homeless or living [...] drink first t zeb in the morning (EYE-PER DIEM INTERPRETER) to steady your nerves or to [...] Not at all 01/24/2025 8: 15 AM ROULAT Lana Peace Feeling bad about yourself - or that you are a failure or have let yourself or your family down Not at all 01/24/2025 8:15 AM EDT Maverick Peace Trouble concentrating on thi ngs, such as reading the newspaper or watching television Not at all 01/24/2025 8:15 AM ROULAT Lana Peace Moving or speaking so slowly that other people could have noticed? Or the opposite - being so fidgety or restless that you have been moving around a lot more than usual. Not at all 01/24/2025 8:15 AM Celina Maier Thoughts that you would be b dickson off or hurting yourself in some way Not at all 01/24/2025 8:15 AM EDLana Reich Patient Health Questionnaire-9 Score 0 12/27 8:15 [...] Lana Peace documented as of this encounter Plan of [...] documented as of this encounter Care Teams Senior Technical Trainer Relationship Specialty Start Date End Date Raimundo Chirinos MD [address] [place] [address] [address] [place] [address] PCP - General 11/18/21 Moiz Mcnally MD [address] [place] [address] Surgeon Neurosurgery 11/18/21 Bridgett Gonzales APRN [address] [place] [address] Nurse Practitioner Neurosurgery 01/07/22 Ynes Rocha LPN [facility] TCM Nurse 12/27/24/ documented as of this encounter
--- OUTSIDE RECORDS SUMMARY | 2025-02-20 07:33 | XMS_ITS | Encounter Summary ---
Author Organization Healthcare Address [address] [place] [address] Care Team Providers Care Printed Circuit Boards Contact Printer Name Role Phone Raimundo Chirinos MD Primary Care Provider Moiz Mcnally MD Unavailable [phone] Bridgett Gonzales LACE PAPER MACHINE OPERATOR Unavailable [phone] Ynes Rocha WELT ROUGHER Unavailable Unavailab le Encounter Details Date Type Department Care Team (Latest Contact Info) Description 2025 Travel Social History Tobacco Use Types Packs/Day [...] drink first t zeb in the morning (EYE-QUALITY CONTROL INSPECTOR) to steady your nerves or to [...] documented as of this encounter Care Teams Printed Circuit Boards Contact Printer Relationship Specialty Start Date End Date Raimundo Chirinos MD [facility] [address] [place], [place] [id number] PCP - General 11/18/21 Moiz Mcnally MD [address] [place] [address] Surgeon Neurosurgery 11/18/21 Bridgett Gonzales APRN [address] [place] [address] Nurse Practitioner Neurosurgery 01/07/22 Ynes Rocha LPN [facility] TCM Nurse 12/27/2401/25 documented as of this encounter
--- OUTSIDE RECORDS SUMMARY | 2025-02-20 07:33 | XMS_ITS | Encounter Summary ---
Author Organization Healthcare Address [address] [place] [address] Care Team Providers Care Sewer Pipe Press Operator Name Role Phone Raimundo Chirinos MD Primary Care Provider [phone] Moiz Mcnally MD Unavailable [phone] Bridgett Gonzales SOAP WORKER Unavailable [phone] Ynes Rocha STATION TENDER Unavailable Unavailab le Encounter Details Date Type Department Care Team (Latest Contact Info) Description 01/24/2025 Travel Social History Tobacco Use Types Packs/Day [...] any time in the past 12 m [facility], were you homeless or living [...] first t zeb in the morning (EYE-MANAGER VIDEO GAMES) to steady your nerves or to get [...] problems? Question Answer Date of Assessment Author Rojas interest or pleasure in doing things Not [...] Not difficult at all 01/24/2025 8:15 AM Lana Maier documented as of this encounter Plan of [...] documented as of this encounter Care Teams Sewer Pipe Press Operator Relationship Specialty Start Date End Date Raimundo Chirinos MD [address] [place] [address] [address] [place] [address] PCP - General 11/18/21 Moiz Mcnally MD [address] [facility] [place] [address] Surgeon Neurosurgery 11/18/21 Bridgett Gonzales APRN [address] [place] [address] Nurse Practitioner Neurosurgery 01/07/22 Ynes Rocha LPN [facility] TCM Nurse 12/27/2401/25 documented as of this encounter
--- NOTE | 2025-02-20 08:00 | CT_ITS ---
FINAL REPORT TECHNIQUE: Thin section axial images were obtained through the abdomen after intravenous contrast. Reconstruction images were obtained from the axial data. Exam was performed using dose reduction techniques. CLINICAL HISTORY: Pancreatic cancer COMPARISON: 01/16/2025, 12/03/2024 FINDINGS: Lung bases are clear. There is a focal area of enhancement in the anterior right hepatic lobe measuring 16 mm on portal venous phase (series 5, image 20). This was not seen on early arterial phase or delayed imaging but is new from prior exam and is a nonspecific finding. There is pneumobilia within the left hepatic lobe. No other liver lesion is identified. Gallbladder is present with both a common duct and pancreatic duct stents in place. Spleen is unremarkable. Bilateral adrenal nodules are stable. Kidneys demonstrate no mass or hydronephrosis. There is fullness in the region of the pancreatic head measuring 38 x 30 mm which subjectively appears larger than on prior exam where this previously measured 32 mm on coronal imaging. Presumably the patient's known pancreatic cancer. GI tract demonstrates no evidence of small bowel obstruction. Normal appendix. There is diverticulosis without evidence of diverticulitis. No acute GI tract abnormality is seen. Prostate is enlarged. There is no free fluid. Small mesenteric lymph nodes are unchanged. There is no acute osseous abnormality. IMPRESSION: 1. Fullness of the pancreatic head, presumably patient's known pancreatic cancer which has slightly increased in size. 2. Small hypervascular liver lesion seen on portal venous imaging which could be related to perfusion anomaly. Small metastasis not entirely excluded. Recommend close interval follow-up. 3. Stable bilateral adrenal nodules, likely adenomas. Reviewed, Interpreted and Dictated by Cat Redd MD Transcribed by Jesica Fleming Authenticated and [facility]
[2025-02-20 08:03] LABS: Blood Urea Nitrogen 17 mg/dl (9-20); Creatinine,Serum 0.80 mg/dl (0.66-1.25); Estimated Glomerular Filt Rate 97 ml/min (>60); GFR (African American) 117 ML/MIN (>60)
[2025-02-20] MEDS: SODIUM CHLORIDE 0.9% 10ML SYR (RAD ONLY) 10 ML IV (08:26)
[2025-02-20] MEDS: IOPAMIDOL-370 (76%);100ML BOTTLE 75 ML IV (08:26)
== END 2025-02-20 23:59 | disposition home or self-care (01) ==
LOC: RAD 07:29
PROVIDERS: PCP Internal Medicine; Visit Provider Internal Medicine
DX: C25.9 Malignant neoplasm of pancreas, unspecified (principal); R93.2 Abnormal findings on diagnostic imaging of liver and biliary tract; R93.89 Abnormal findings on diagnostic imaging of other specified body structures; R17 Unspecified jaundice
CPT/HCPCS: 36415; 74177; 82565; 84520; Q9967